=== PATIENT | female | born 1945 | race Two or more races ===

== ENCOUNTER 2016-09-09 07:28 | Inpatient (IN) | payer MEDICARE, MEDICAID ==
[~2016-09-09] VITALS: Ht 157.5 cm; Wt 45.8 kg
[2016-09-09] VITALS (8 sets, daily range): BP systolic 118–137; BP diastolic 33–65
[2016-09-09] MEDS ORDERED: COLACE100 MG ORAL (07:44)
[2016-09-09] MEDS ORDERED: TRAMADOL HCL50 MG ORAL (07:44)
[2016-09-09] MEDS ORDERED: FOSAMAX70 MG ORAL (07:44)
[2016-09-09] MEDS ORDERED: ATORVASTATIN CA40 MG ORAL (07:45)
[2016-09-09] MEDS ORDERED: CALCIUM 500 +1 EAC5 PO (07:45)
[2016-09-09] MEDS ORDERED: FAMOTIDINE20 MG ORAL (07:47)
[2016-09-09] MEDS ORDERED: LOVENOX10 M4 SUBQ ×3 (07:47→08:33)
[2016-09-09] MEDS ORDERED: DIGOXIN125 MCG ORAL (07:47)
[2016-09-09] MEDS ORDERED: CARVEDILOL6.25 MG ORAL (07:47)
[2016-09-09] MEDS ORDERED: FUROSEMIDE40 MG ORAL (07:48)
[2016-09-09] MEDS ORDERED: FERROUS SULFAT325 MG ORAL (07:48)
[2016-09-09] MEDS ORDERED: METFORMIN HCL850 M1 ORAL (07:56)
[2016-09-09] MEDS ORDERED: OFLOXACIN5 ML OTIC (07:56)
[2016-09-09] MEDS ORDERED: ACULAR5 ML BOTH EYES (07:56)
[2016-09-09] MEDS ORDERED: LOSARTAN POTASS25 MG ORAL (07:56)
[2016-09-09] MEDS ORDERED: PRED FORTE1 ML OP (07:56)
[2016-09-09] MEDS ORDERED: METFORMIN HCL1000 M1 ORAL (07:56)
[2016-09-09] MEDS ORDERED: PRED FORTE1 ML RIGHT EYE (07:58)
[2016-09-09] MEDS ORDERED: WARFARIN SODIUM4 MG ORAL (07:58)
--- NOTE | 2016-09-09 08:06 | Emergency Room Report ---
History of Present Illness General Chief Complaint: Generalized Weakness Source: Patient, EMS Present Illness HPI The patient presents with several days of increased weakness and dizziness. This worsened this morning. He denies any chest pain. She's had some cough and shortness of breath recently. Is been no fever. Denies any vomiting, hematochezia or melena. She also denies dysuria. Patient is status post valve replacement X 2 -- they were replaced many years ago. She is on digoxin and Coumadin. She denies this happening to her before. She states she has anemia. Recent perirectal surgery 08/27. She had had persistent rectal bleeding and finally agreed to have this corrected. Post-op, there was still significant bleeding which has decreased.. Seen here 08/28. This is the note: The patient is a 70-year-old female presenting for wound check. The patient had a hemorrhoidectomy yesterday at [facility] for rectal hemorrhoid. The patient' s daughter states that the patient mistakenly remove the dressing and the patient began to bleed from the surgical site. The daughter became alarmed and had the patient brought here. The patient denies any symptoms including pain, fatigue, dizziness, blurred vision, abdominal pain. The patient states that she does not take any blood thinners. The patient denies nausea, vomiting, fever, chills, shortness of breath, chest pain Patient lives at home. 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 Review of Systems All Other Systems: negative except mentioned in HPI Physical Exam Vital Signs Date Time Temp Pulse Resp B/P Pulse Ox O2 Delivery O2 Flow Rate FiO2 09/09/16 07:23 98.1 76 16 121/42 98 Room Air Sp02 EP Interpretation: reviewed, normal General Appearance: no apparent distress, alert, GCS 15, thin, Chronically Ill Head: normocephalic Eyes: bilateral eye PERRL, bilateral eye conjunctivae pale ENT: moist mucus membranes Neck: supple Respiratory: rales - anteriorly, fairly clear with sitting up Cardiovascular #1: other - mechanical valves, edema - trace bilat Cardiovascular #2: 2+ radial (R) Gastrointestinal: normal inspection, normal bowel sounds, non tender, no mass, non-distended Rectal: other - some yanci blood from area where surgery was Musculoskeletal: back normal, gait/station normal, normal range of motion Neurologic: alert, oriented x3 - non focal neuro Psychiatric: depressed affect - but pleasant Skin: normal inspection, warm/dry Procedures Critical Care Time Critical Care Time Total time: 30 min bedside evaluation and treatment excludes procedures (EKG). Reason for critical care: hypotension, GI bleed, critical anemia Possible complications: hypotension, hypertension, AR, shock, arrhythmias, metabolic acidosis, end organ damage, respiratory failure. Interventions: fluid bolus, blood transfusions, repeated evaluations, blood consent Course: Patient presents with weakness post rectal surgery. Eval with blood in rectum. Transiently hypotensive. Alleged anticoagulation due to valve replacements (INR = 1). Emergent set up for transfusions (discussed with blood bank, patient and family). Monitor during transfusion. Improved. Consultations: nursing staff, EMS, family, patient Performed by: Dr. Cotter Tolerated well condition = serious Medical Decision Making Diagnostic Impression: Primary Impression: Profound anemia Qualified Codes: D62 - Acute posthemorrhagic anemia Additional Impressions: Lower GI bleed Valve replacements ER Course The patient presents with weakness post valve replacement many years ago. She has a history of anemia. Differential includes acute coronary syndrome, dehydration, anemia, GI blood loss/bleeding post operatively, digoxin toxicity, sepsis, infection including urine or lungs, failure to thrive amongst others. Accompanied patient on digoxin and Coumadin. She is pale and we need to assess her anemia at this time. Hemoglobin returns critically low. Blood was ordered on the patient. The patient was advised of risks and benefits of receiving blood transfusion here. All questions were answered. Improving with blood transfusion, tolerated well. Admit med Dr. Real. Laboratory Tests Test 09/09/16 07:45 09/09/16 08:00 White Blood Count 10.3 K/UL (4.8-10.8) Red Blood Count 1.62 M/UL (4.20-5.40) L Hemoglobin 3.7 G/DL (12.0-16.0) *L Hematocrit 13.3 % (37.0-47.0) L Mean Corpuscular Volume 82 FL (80-99) Mean Corpuscular Hemoglobin 23.2 PG (27.0-31.0) L Mean Corpuscular Hemoglobin Concent 28.3 G/DL (32.0-36.0) L Red Cell Distribution Width 16.0 % (11.6-14.8) H Platelet Count 459 K/UL (150-450) H Mean Platelet Volume 5.4 FL (6.5-10.1) L Neutrophils (%) (Auto) % (45.0-75.0) Lymphocytes (%) (Auto) % (20.0-45.0) Monocytes (%) (Auto) % (1.0-10.0) Eosinophils (%) (Auto) % (0.0-3.0) Basophils (%) (Auto) % (0.0-2.0) Differential Total Cells Counted 100 Neutrophils % (Manual) 81 % (45-75) H Lymphocytes % (Manual) 11 % (20-45) L Monocytes % (Manual) 8 % (1-10) Eosinophils % (Manual) 0 % (0-3) Basophils % (Manual) 0 % (0-2) Band Neutrophils 0 % (0-8) Platelet Estimate Adequate Platelet Morphology Normal Polychromasia 2+ Hypochromasia 2+ Anisocytosis 1+ Ovalocytes Occasional Prothrombin Time 10.6 SEC (9.30-11.50) Prothrombin Time INR 1.0 (0.9-1.1) PTT 28 SEC (23-33) Sodium Level 134 mEQ/L (135-145) L Potassium Level 4.4 mEQ/L (3.4-4.9) Chloride Level 95 mEQ/L (98-107) L Carbon Dioxide Level 24 mEQ/L (20-30) Anion Gap 15 (5-15) Blood Urea Nitrogen 29 mg/dL (7-23) H Creatinine 1.1 mg/dL (0.5-0.9) H Estimate Glomerular Filtration Rate mL/min (>60) Glucose Level 150 mg/dL (74-106) H Lactic Acid Level 1.60 mmol/L (0.66-2.22) Calcium Level 8.6 mg/dL (8.6-10.2) Total Bilirubin 0.3 mg/dL (0.0-1.2) Aspartate Amino Transferase (AST) 16 U/L (5-40) Alanine Aminotransferase (ALT) 12 U/L (3-33) Alkaline Phosphatase 79 U/L (35-104) Total Creatine Kinase 43 U/L (26-140) Troponin I < 0.30 ng/mL (<=0.30) Pro-B-Type Natriuretic Peptide 556 pg/mL (0-125) H Total Protein 6.6 g/dL (6.6-8.7) Albumin 3.4 g/dL (3.5-5.2) L Globulin 3.2 g/dL Albumin/Globulin Ratio 1.0 (1.0-2.7) Digoxin Level 1.8 ng/mL (0.5-2.0) Urine Color Pale yellow Urine Appearance Clear Urine pH 5 (4.5-8.0) Urine Specific [place] 1.015 (1.005-1.035) Urine Protein Negative (NEGATIVE) Urine Glucose (UA) Negative (NEGATIVE) Urine Ketones Negative (NEGATIVE) Urine Occult Blood Negative (NEGATIVE) Urine Nitrite Negative (NEGATIVE) Urine Bilirubin Negative (NEGATIVE) Urine Urobilinogen Normal MG/DL (0.0-1.0) Urine Leukocyte Esterase 1+ (NEGATIVE) H Urine RBC 0-2 /HPF (0 - 2) Urine WBC 0-2 /HPF (0 - 2) Urine Squamous Epithelial Cells Few /LPF (NONE/OCC) Urine Bacteria Few /HPF (NONE) EKG Diagnostic Results Rhythm: other - A. fib ST Segments: other - digoxin effect or ischemia Rhythm Strip Diag. Results EP Interpretation: yes Rhythm: no PVC's, no ectopy, other - a fib Chest X-Ray Diagnostic Results EP Interpretation: Yes Findings: no consolidation, no effusion, no pneumothorax, other - cardiomegally Number of Views: 1 Last Vital Signs Date Time Temp Pulse Resp B/P Pulse Ox O2 Delivery O2 Flow Rate FiO2 09/09/16 07:23 98.1 76 16 121/42 98 Room Air Status: improved Disposition: ADMITTED INPATIENT Condition: Serious Alirio Cotter M.D. Sep 09, 2016 08:06
[2016-09-09 08:22] LABS: MEAN CORPUSCULAR HEMOGLOBIN 23.2 PG (27.0-31.0); MEAN CORPUSCULAR HGB CONC 28.3 G/DL (32.0-36.0); MEAN CORPUSCULAR VOLUME 82 FL (80-99); MEAN PLATELET VOLUME 5.4 FL (6.5-10.1); PLATELET COUNT 459 K/UL (150-450); RED BLOOD COUNT 1.62 M/UL (4.20-5.40); WHITE BLOOD COUNT 10.3 K/UL (4.8-10.8)
[2016-09-09 08:34] LABS: ALANINE AMINOTRANSFERASE 12 U/L (3-33); ANION GAP 15 (5-15); ASPARTATE AMINO TRANSFERASE 16 U/L (5-40); CALCIUM 8.6 mg/dL (8.6-10.2); CARBON DIOXIDE 24 mEQ/L (20-30); CHLORIDE 95 mEQ/L (98-107); CREATININE 1.1 mg/dL (0.5-0.9); HEMOLYSIS 0; POTASSIUM 4.4 mEQ/L (3.4-4.9); SODIUM 134 mEQ/L (135-145); TOTAL PROTEIN 6.6 g/dL (6.6-8.7)
[2016-09-09 08:35] LABS: PROTHROMBIN TIME 10.6 SEC (9.30-11.50)
[2016-09-09 08:45] LABS: TROPONIN I < 0.30 ng/mL (<=0.30)
[2016-09-09 08:55] LABS: LYMPHOCYTES % (MANUAL) 11 % (20-45); NEUTROPHILS % (MANUAL) 81 % (45-75); TOTAL CELLS COUNTED 100
[2016-09-09 08:56] LABS: ANISOCYTOSIS 1+; HYPOCHROMASIA 2+; POLYCHROMASIA 2+
[2016-09-09 08:57] LABS: OVALOCYTES OCCASIONAL
[2016-09-09 08:58] LABS: BAND NEUTROPHILS % (MANUAL) 0 % (0-8); BASOPHILS % (MANUAL) 0 % (0-2); EOSINOPHILS % (MANUAL) 0 % (0-3); PLATELET ESTIMATE ADEQUATE; PLATELET MORPHOLOGY NORMAL
[2016-09-09 09:32] LABS: APPEARANCE,URINE CLEAR; KETONES,URINE NEGATIVE (NEGATIVE); LEUKOCYTE ESTERASE ,URINE 1+ (NEGATIVE); NITRITE,URINE NEGATIVE (NEGATIVE); PH,URINE 5 (4.5-8.0); PROTEIN,URINE NEGATIVE (NEGATIVE); UROBILINOGEN,URINE NORMAL MG/DL (0.0-1.0)
[2016-09-09 09:48] LABS: BACTERIA,URINE FEW /HPF; RBC,URINE 0-2 /HPF (0 - 2); SQUAMOUS EPITHELIAL CELL,UR FEW /LPF (NONE/OCC); WBC,URINE 0-2 /HPF (0 - 2)
--- NOTE | 2016-09-09 12:11 | Diagnostic Imaging Report ---
Indication: Dyspnea Comparison: None A single view chest radiograph was obtained. Findings: No definite infiltrate or pulmonary vascular congestion identified. The heart is enlarged. The aorta is mildly enlarged consistent with atherosclerotic vascular disease. The older fractures on the right. Sternotomy noted. The bones are osteopenic. Impression: No acute disease
--- NOTE | 2016-09-09 15:26 | History & Physical ---
History and Physical History & Physicial job # [id number] Kobi Real MD Sep 09, 2016 15:26
[2016-09-09] MEDS: NovoLOG Insulin Flexpen SUBQ SCH ×3 (16:30→23:07)
--- NOTE | 2016-09-09 16:32 | Consultation ---
Consult Note Consult Note Surgery Reason for Consult: Blood per rectum, profound anemia Consulting physician: Farhan 70 year old female history of A. Fib on Coumadin underwent hemorrhoidectomy at [facility] at 08/27/16. Reports it was two bundle. Pain for about 4 - 5 days.Had blood spotting post, but in last day or so was very significant bleeding. Has been bridged on Lovenox injections post op. Denies history of DVT/PE. Blood thinners were for A. Fib. Denies history of RI, but does have history of CVA in the 90's. No chest pain prior to this admission. Denies syncopal episode. PMHx: CVA 90's, HTN, Chol, DM, A. Fib on blood thinners PSHx: cataracts x2, hemorrhoidectomy x2 bundles FamHx: non contrib SocHx: non contrib ROS: ten point review - pertinents in HPI above Phys: AVSS pertinent positive/negative unlabored NAD AAOX3 Soft, NTND rectal exam: Gross: right lateral thrombosis without surrounding induration/fluctuance, no crepitus STARLA: Deferred due to recent surgery Labs: Laboratory Tests 09/09/16 07:45: White Blood Count 10.3, Hemoglobin 3.7*L, Band Neutrophils 0, Glucose Level 150H, Lactic Acid Level 1.60, Troponin I < 0.30, Pro-B-Type Natriuretic Peptide 556H Assessment/Plan Rectal Bleeding with profound anemia Agree with blood transfusion Bleeding likely from hemorrhoidectomy due to the blood thinners if can hold off of the blood thinners for some time, please do no significant bleeding at the current moment There is a thrombus on the right lateral bundle - likely this was the site of the bleed and it has since clotted off Leave the thrombus in place Given history of DM, control sugars to decrease infectious risk If hgb stable and no bleeding over 24 hours stable for d/c with follow up with her primary surgeon if can, keep off of anti-coagulation for 1 - 2 weeks to allow the site to heal adequately - however cardiac concerns take precedence and if needs Anti- coagulation then should be done thank you for interesting consultation. AWA LAWS Sep 09, 2016 16:32
[2016-09-09 17:05] LABS: TROPONIN I < 0.30 ng/mL (<=0.30)
[2016-09-09] MEDS: Furosemide 40mg tab ORAL SCH (18:15)
[2016-09-09] MEDS: Pred Forte 1% Opth Susp 1ml RIGHT EYE SCH ×2 (18:16→23:01)
[2016-09-09 19:43] LABS: MEAN CORPUSCULAR HEMOGLOBIN 26.5 PG (27.0-31.0); MEAN CORPUSCULAR HGB CONC 30.6 G/DL (32.0-36.0); MEAN CORPUSCULAR VOLUME 86 FL (80-99); MEAN PLATELET VOLUME 5.2 FL (6.5-10.1); PLATELET COUNT 360 K/UL (150-450); RED BLOOD COUNT 2.31 M/UL (4.20-5.40); RED CELL DISTRIBUTION WIDTH 15.3 % (11.6-14.8); WHITE BLOOD COUNT 7.3 K/UL (4.8-10.8)
[2016-09-09 20:00] LABS: BASOPHILS % (AUTO) 0.6 % (0.0-2.0); EOSINOPHILS % (AUTO) 0.2 % (0.0-3.0); LYMPHOCYTES % (AUTO) 14.8 % (20.0-45.0); MONOCYTES % (AUTO) 7.9 % (1.0-10.0); NEUTROPHILS % (AUTO) 76.5 % (45.0-75.0)
--- NOTE | 2016-09-09 20:18 | History and Physical Report ---
DATE OF ADMISSION: 09/09/2016 CHIEF COMPLAINT: General weakness and rectal bleeding. HISTORY OF PRESENT ILLNESS: This is a 70-year-old, very unfortunate, female with past medical history significant for hypertension, diabetes type 2, status post mechanical valve replacement twice in 1985 and 1995, history of atrial fibrillation and prior history of CVA in 1990. Hemorrhoidectomy on 08/27/2016 recently at [facility], who has presented to the hospital initially on 08/28/2016 due to the rectal bleeding. The patient post surgery had a dressing at the rectum area after the hemorrhoidectomy and the patient removed the dressings and packing and then subsequently had a slow bleeding. She has been getting the Lovenox due to the mechanical valve and hold off on the Coumadin. She has been having a continuous bleeding, initially got improved, but however, got progressively worsening after a couple of days and now presented to the emergency room with severe weakness and tiredness and shortness of breath with some cough. Denies any fever or chills. Denies any bright red blood per rectum and shortly after initial evaluation in the emergency, the patient was noted to have a hemoglobin of 3.7, hematocrit of 13.3, and subsequently, the patient was admitted to the hospital with severe anemia due to the rectal bleeding. PAST MEDICAL HISTORY/PAST SURGICAL HISTORY: As above. History of a recent hemorrhoidectomy on 08/27/2016 due to the enlarged hemorrhoids and there is slow bleeding, history of cataract surgery in both eyes, anemia, atrial fibrillation, diabetes type 2, with prior history of stroke in 1990, hypertension and status post valve replacement in 1985 and 1995 with mechanical valve. MEDICATIONS: Medications at home is significant for Coumadin 4 mg p.o. daily, but presently on hold, Lovenox 40 mg twice a day, Fosamax 70 mg weekly, atorvastatin 40 mg at night, vitamin D plus calcium one tablet twice a day, carvedilol 6.25 mg b.i.d., digoxin 0.125 mg daily, Colace 200 mg b.i.d., famotidine 20 mg daily, iron sulfate 325 mg daily, Lasix 40 mg twice a day, Acular one drop b.i.d., losartan 25 mg daily, metformin 850 mg p.o. t.i.d., and prednisone acetate 1 mL drop suspension, Folaxin 5 mL four times a day, and Ultram 50 mg q.6 h. p.r.n. ALLERGIES: No known drug allergies. SOCIAL HISTORY: Denies any smoking, alcohol, or drugs. She lives with her niece, who is a primary janitor caretaker for the patient. FAMILY HISTORY: Diabetes runs in the family. REVIEW OF SYSTEMS: Mostly as above. Complained about the rectal bleeding. Denies any hemoptysis or hematochezia. Denies any bright red blood per rectum. Denies any loss of consciousness. Denies any suicidal cessation. Complained about shortness of breath and weakness. Denies any seizure activity. Denies any double vision. PHYSICAL EXAMINATION: VITAL SIGNS: On admission from the ER is significant for temperature 98.1 degrees, pulse of 76, respirations 16, and blood pressure 121/43. GENERAL: The patient is awake, responsive, no acute distress. HEENT: Pupils are equal and reactive to light. Pallor conjunctiva. NECK: Supple. No JVD. LUNGS: Good air entry. No wheezing or rales. HEART: S1 and S2 irregular. Systolic ejection murmur was noted. Mechanical click was noted on the left sternal border. ABDOMEN: Soft, nontender, and nondistended. Positive bowel sounds. EXTREMITIES: No cyanosis, clubbing, or edema. NEUROLOGIC: Cranial nerves II through XII are grossly intact. Moves all four extremities. LABORATORY DATA: On admission from the ER, WBC of 10.3, hemoglobin of 3.7, hematocrit 13, and platelet is 459,000. Sodium 134, potassium 4.4, chloride 95, bicarbonate 24, BUN 29, and creatinine 1.02. Her glucose is 150. Lactic acid is 1.6. First troponin is less than 0.30. ProBNP of 556 and digoxin level of 1.8. Urinalysis, +1 leukocyte otherwise no nitrates. PT of 10, INR 1.0, and PTT of 28. WBC of 10.3, hemoglobin 3.7, hematocrit 13, and platelet is 459,000, 11% lymphocytes, and 81% neutrophils. EKG shows that the patient has atrial fibrillation with a ventricular rate of 82, left ventricular hypertrophy. No ST elevation was noted. No T-wave inversions. However, mild ST depression was noted in lead 2 as well as the V5 and V6. ASSESSMENT: 1. Severe anemia. 2. Rectal bleeding. 3. Diabetes type 2. 4. Hypertension. 5. History of cerebrovascular accident. 6. Atrial fibrillation. 7. Mild abnormal electrocardiogram. 8. History of enlarged hemorrhoids status post a recent hemorrhoidectomy. PLAN: Admit the patient to telemetry. Start the patient on IV hydration with blood transfusion 2 units of packed RBC. Follow up with a repeat laboratory post transfusion. Resume home medication. Clear liquid diet. We will follow up with the colorectal consultation with Dr. Gael Brooks, gastrointestinal consultation with Dr. Charan Pimentel, and cardiology consultation with Dr. Travis Hartley. We will hold off on anticoagulation due to severe anemia. Discussed with any needs at the bedside extensively regards this care will be provided. We will monitor the labs and Code status is Full Code. Kobi Real M.D. DR: MADISON JOB#: [id number] CC:
[2016-09-10] VITALS (8 sets, daily range): BP systolic 98–126; BP diastolic 46–60
[2016-09-10] MEDS: NovoLOG Insulin Flexpen SUBQ SCH ×4 (06:57→22:43)
--- NOTE | 2016-09-10 08:10 | General Progress Note ---
Progress Note Progress Note Surgery no complaints. Denies further bleeding. denies f/c/dysuria/pelvic pain avss nad gauze placed by nursing yesterday morning without blood on it thrombus softer and smaller overall blood per rectum bleeding has stopped cont transfusions to appropriate levels if safe to do, hold anti-coagulation 1 - 2 weeks and then restart as normal stable for discharge once hemoglobin at appropriate level follow up within one week of discharge with her original surgeon AWA LAWS Sep 10, 2016 08:10
[2016-09-10] MEDS: Digoxin 0.125mg tab ORAL SCH (09:46)
[2016-09-10] MEDS: Pred Forte 1% Opth Susp 1ml RIGHT EYE SCH ×4 (09:47→22:40)
[2016-09-10] MEDS: Furosemide 40mg tab ORAL SCH ×2 (09:47→18:04)
[2016-09-10 11:14] LABS: BASOPHILS % (AUTO) 0.9 % (0.0-2.0); EOSINOPHILS % (AUTO) 0.7 % (0.0-3.0); LYMPHOCYTES % (AUTO) 13.8 % (20.0-45.0); MEAN CORPUSCULAR HEMOGLOBIN 27.8 PG (27.0-31.0); MEAN CORPUSCULAR HGB CONC 32.7 G/DL (32.0-36.0); MEAN CORPUSCULAR VOLUME 85 FL (80-99); MEAN PLATELET VOLUME 5.3 FL (6.5-10.1); MONOCYTES % (AUTO) 9.1 % (1.0-10.0); NEUTROPHILS % (AUTO) 75.5 % (45.0-75.0); PLATELET COUNT 311 K/UL (150-450); RED BLOOD COUNT 3.28 M/UL (4.20-5.40); RED CELL DISTRIBUTION WIDTH 14.8 % (11.6-14.8); WHITE BLOOD COUNT 6.2 K/UL (4.8-10.8)
[2016-09-10 11:25] LABS: TROPONIN I < 0.30 ng/mL (<=0.30)
[2016-09-10 11:28] LABS: ALANINE AMINOTRANSFERASE 9 U/L (3-33); ANION GAP 14 (5-15); ASPARTATE AMINO TRANSFERASE 13 U/L (5-40); CALCIUM 8.4 mg/dL (8.6-10.2); CARBON DIOXIDE 27 mEQ/L (20-30); CHLORIDE 99 mEQ/L (98-107); HEMOLYSIS 2; PHOSPHORUS 3.1 mg/dL (2.5-4.8); SODIUM 140 mEQ/L (135-145); TOTAL PROTEIN 6.2 g/dL (6.6-8.7)
[2016-09-10] MEDS: Docusate 100mg cap ORAL SCH ×2 (13:00→18:04)
--- NOTE | 2016-09-10 13:26 | GI Initial Consult Note ---
Meagan Jensen N.P. 09/10/16 1326: History of Present Illness General Date patient seen: Sep 10, 2016 Time patient seen: 11:00 Reason for Hospitalization: Generalized Weakness Referring physician: PRICE HOFF Reason for Consultation: RECTAL BLEED Present Illness HPI The patient presents with several days of increased weakness and dizziness. This worsened this morning. He denies any chest pain. She's had some cough and shortness of breath recently. Is been no fever. Denies any vomiting, hematochezia or melena. She also denies dysuria. Patient is status post valve replacement X 2 -- they were replaced many years ago. She is on digoxin and Coumadin. She denies this happening to her before. She states she has anemia. Recent perirectal surgery 08/27. She had had persistent rectal bleeding and finally agreed to have this corrected. Post-op, there was still significant bleeding which has decreased.. Seen here 08/28. This is the note: The patient is a 70-year-old female presenting for wound check. The patient had a hemorrhoidectomy yesterday at [facility] for rectal hemorrhoid. The patient' s daughter states that the patient mistakenly remove the dressing and the patient began to bleed from the surgical site. The daughter became alarmed and had the patient brought here. The patient denies any symptoms including pain, fatigue, dizziness, blurred vision, abdominal pain. The patient states that she does not take any blood thinners. The patient denies nausea, vomiting, fever, chills, shortness of breath, chest pain Patient lives at home. GI NOTE: HPI as noted above. GI consulted for rectal bleed. Pt seen on floor A&Ox4 NAD. Pt was admitted here at [place] with anemia due to acute blood loss 2/2 s/p hemorrhoidectomy. Initial Hgb 3.7, now Hgb 9.1 s/p transfusion. Per RN report, the patient has had no active rectal bleeding since admission. However, NC MACHINIST reports scant amounts of bright red blood. Pt denies any melena. Last colonoscopy was approximately 3 years ago. Home Meds Reported Medications Enoxaparin* (LOVENOX*) 40 Mg/0.4 Ml Inj, 40 MG SUBQ BID 09/09/16 Warfarin Sod* (WARFARIN SOD*) 4 Mg Tablet, 4 MG ORAL DAILY, TAB 0 Refills 09/09/16 Prednisolone Acetate (PRED FORTE) 1 Ml Drops.susp, 1 DROP RIGHT EYE QID 09/09/16 Losartan Potassium* (LOSARTAN POTASSIUM*) 25 Mg Tablet, 25 MG ORAL DAILY, TAB 09/09/16 Ofloxacin (OFLOXACIN) 5 Ml Drops, 5 ML OTIC QID, ML 09/09/16 Metformin Hcl* (METFORMIN HCL*) 1,000 Mg Tablet, 1000 MG ORAL BID, TAB 09/09/16 Metformin Hcl* (METFORMIN HCL*) 850 Mg Tablet, 850 MG ORAL TID, TAB 09/09/16 Ketorolac Tromethamine (ACULAR) 5 Ml Drops, 1 DROP BOTH EYES FOUR TIMES A DAY, ML 09/09/16 Furosemide* (LASIX*) 40 Mg Tablet, 40 MG ORAL TWICE A DAY, TAB 0 Refills 09/09/16 Ferrous Sulfate* (FERROUS SULFATE*) 325 Mg Tablet, 325 MG ORAL DAILY, #30 TAB 0 Refills 09/09/16 Famotidine (FAMOTIDINE) 20 Mg Tablet, 20 MG ORAL DAILY, #30 TAB 0 Refills 09/09/16 Digoxin* (DIGOXIN*) 125 Mcg Tablet, 125 MCG ORAL DAILY, TAB 09/09/16 Carvedilol* (CARVEDILOL*) 6.25 Mg Tablet, 6.25 MG ORAL EVERY 12 HOURS, TAB 09/09/16 Calcium Carbonate/Vitamin D3 (CALCIUM 500 + VIT D 200 TABLET) 1 Each Tablet, 1 EACH PO BID, TAB 09/09/16 Atorvastatin Calcium* (ATORVASTATIN CALCIUM*) 40 Mg Tablet, 40 MG ORAL BEDTIME, TAB 09/09/16 Alendronate Sodium* (FOSAMAX*) 70 Mg Tablet, 70 MG ORAL ONCE A WEEK, TAB 09/09/16 Docusate Sodium* (COLACE*) 100 Mg Capsule, 200 MG ORAL TWICE A DAY, CAP 09/09/16 Tramadol Hcl* (ULTRAM*) 50 Mg Tablet, 50 MG ORAL Q6H Y for For Pain, #30 TAB 0 Refills 09/09/16 Discontinued Reported Medications Enoxaparin* (LOVENOX*) 40 Mg/0.4 Ml Inj, 40 MG SUBQ BID 09/09/16 Prednisolone Acetate (PRED FORTE) 1 Ml Drops.susp, 1 ML OP 09/09/16 Med list reviewed/reconciled: Yes Allergies: Coded Allergies: No Known Allergies (Unverified , 08/28/16) Patient History Limited by: medical condition History Provided By: Patient, Medical Record PMH Narrative Past Medical History: see triage record Past Surgical History: other - valve replacements Social History: Denies: smoking Social History Narrative at home Reviewed Nursing Documentation: PMH: Agreed, PSxH: Agreed Nursing Documentation-PMH Past Medical History: No History, Except For Hx Cardiac Problems: Yes - Anorectal surgery Hx Hypertension: Yes Hx Diabetes: Yes Hx Gastrointestinal Problems: No - Hemorrhoid 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 Social History: Denies: alcohol use, drug use, other, smoking Review of Systems All Other Systems: negative except mentioned in HPI Physical Exam Vital Signs Date Time Temp Pulse Resp B/P Pulse Ox O2 Delivery O2 Flow Rate FiO2 09/09/16 07:23 98.1 76 16 121/42 98 Room Air 09/09/16 08:30 2.0 Sp02 EP Interpretation: reviewed Labs Laboratory Tests Test 09/09/16 16:05 09/09/16 19:10 09/10/16 10:15 Troponin I < 0.30 ng/mL (<=0.30) < 0.30 ng/mL (<=0.30) White Blood Count 7.3 K/UL (4.8-10.8) 6.2 K/UL (4.8-10.8) Red Blood Count 2.31 M/UL (4.20-5.40) L 3.28 M/UL (4.20-5.40) L Hemoglobin 6.1 G/DL (12.0-16.0) 9.1 G/DL (12.0-16.0) #L Hematocrit 19.9 % (37.0-47.0) #L 27.9 % (37.0-47.0) #L Mean Corpuscular Volume 86 FL (80-99) 85 FL (80-99) Mean Corpuscular Hemoglobin 26.5 PG (27.0-31.0) L 27.8 PG (27.0-31.0) Mean Corpuscular Hemoglobin Concent 30.6 G/DL (32.0-36.0) L 32.7 G/DL (32.0-36.0) Red Cell Distribution Width 15.3 % (11.6-14.8) H 14.8 % (11.6-14.8) Platelet Count 360 K/UL (150-450) 311 K/UL (150-450) Mean Platelet Volume 5.2 FL (6.5-10.1) L 5.3 FL (6.5-10.1) L Neutrophils (%) (Auto) 76.5 % (45.0-75.0) H 75.5 % (45.0-75.0) H Lymphocytes (%) (Auto) 14.8 % (20.0-45.0) L 13.8 % (20.0-45.0) L Monocytes (%) (Auto) 7.9 % (1.0-10.0) 9.1 % (1.0-10.0) Eosinophils (%) (Auto) 0.2 % (0.0-3.0) 0.7 % (0.0-3.0) Basophils (%) (Auto) 0.6 % (0.0-2.0) 0.9 % (0.0-2.0) Sodium Level 140 mEQ/L (135-145) Potassium Level 4.0 mEQ/L (3.4-4.9) Chloride Level 99 mEQ/L (98-107) Carbon Dioxide Level 27 mEQ/L (20-30) Anion Gap 14 (5-15) Blood Urea Nitrogen 21 mg/dL (7-23) Creatinine 1.0 mg/dL (0.5-0.9) H Estimat Glomerular Filtration Rate mL/min (>60) Glucose Level 138 mg/dL (74-106) H Calcium Level 8.4 mg/dL (8.6-10.2) L Phosphorus Level 3.1 mg/dL (2.5-4.8) Magnesium Level 2.0 mg/dL (1.7-2.5) Total Bilirubin 0.4 mg/dL (0.0-1.2) Aspartate Amino Transf (AST/SGOT) 13 U/L (5-40) Alanine Aminotransferase (ALT/SGPT) 9 U/L (3-33) Alkaline Phosphatase 71 U/L (35-104) Total Protein 6.2 g/dL (6.6-8.7) L Albumin 3.2 g/dL (3.5-5.2) L Globulin 3.0 g/dL Albumin/Globulin Ratio 1.0 (1.0-2.7) General Appearance: no apparent distress, alert, thin Head: normocephalic EENT: normal ENT inspection Neck: supple Respiratory: normal breath sounds, no respiratory distress Cardiovascular: normal rate Gastrointestinal: non tender, soft Rectal: other - rectal bleed bright red blood Genitourinary: no CVA tenderness Musculoskeletal: normal range of motion Neurologic: normal inspection, alert, oriented x3, responsive Psychiatric: normal inspection, judgement/insight normal Skin: normal inspection, normal color, no rash, warm/dry Lymphatic: normal inspection, no adenopathy Current Medications Current Medications Medications (Trade) Dose Ordered Sig/Grisel Route PRN Reason Start Time Stop Time Status Last Admin Dose Admin Atorvastatin Calcium (Lipitor) 40 mg BEDTIME ORAL 09/09/16 21:00 10/09/16 20:59 09/09/16 22:54 Carvedilol (Coreg) 3.125 mg EVERY 12 HOURS ORAL 09/09/16 21:00 10/09/16 20:59 09/10/16 09:46 Dextrose (Dextrose 50%) STAT PRN IV Hypoglycemia 09/09/16 15:45 10/09/16 15:44 Digoxin (Lanoxin) 0.125 mg DAILY ORAL 09/10/16 09:00 10/10/16 08:59 09/10/16 09:46 Docusate Sodium (Colace) 100 mg THREE TIMES A DAY ORAL 09/10/16 13:00 10/10/16 12:59 09/10/16 13:00 Ferrous Sulfate (Feosol) 325 mg DAILY ORAL 09/10/16 09:00 10/10/16 08:59 09/10/16 09:46 Furosemide (Lasix) 40 mg TWICE A DAY ORAL 09/09/16 18:00 10/09/16 17:59 09/10/16 09:47 Insulin Aspart (NovoLOG) BEFORE MEALS AND HS SUBQ 09/09/16 16:30 10/09/16 16:29 09/10/16 11:45 Metformin HCl (Glucophage) 850 mg TID ORAL 09/09/16 18:00 10/09/16 17:59 09/10/16 13:01 Polyethylene Glycol (Miralax) 17 gm BEDTIME ORAL 09/10/16 21:00 10/10/16 20:59 Prednisolone Acetate (Pred Forte) 1 drop QID RIGHT EYE 09/09/16 18:00 10/09/16 17:59 09/10/16 13:01 GI: Plan Problems: (1) S/P hemorrhoidectomy (2) Hypoalbuminemia (3) Iron deficiency (4) Lower GI bleed (5) Encounter for postoperative wound check (6) Profound anemia Plan hold off colonoscopy at this time >> bleed from s/p hemorrhoidectomy ordered colace/miralax monitor H&H, transfuse prn iron deficient >> venofer adv to cardiac diet okay to restart any cardiac meds per primary fu labs Discussed with Dr. Burch. Thank you for referring this patient, we will follow. YVES BURCH 09/11/16 1402: History of Present Illness General Reason for Hospitalization: Generalized Weakness Present Illness Home Meds Reported Medications Enoxaparin* (LOVENOX*) 40 Mg/0.4 Ml Inj, 40 MG SUBQ BID 09/09/16 Warfarin Sod* (WARFARIN SOD*) 4 Mg Tablet, 4 MG ORAL DAILY, TAB 0 Refills 09/09/16 Prednisolone Acetate (PRED FORTE) 1 Ml Drops.susp, 1 DROP RIGHT EYE QID 09/09/16 Losartan Potassium* (LOSARTAN POTASSIUM*) 25 Mg Tablet, 25 MG ORAL DAILY, TAB 09/09/16 Ofloxacin (OFLOXACIN) 5 Ml Drops, 5 ML OTIC QID, ML 09/09/16 Metformin Hcl* (METFORMIN HCL*) 1,000 Mg Tablet, 1000 MG ORAL BID, TAB 09/09/16 Metformin Hcl* (METFORMIN HCL*) 850 Mg Tablet, 850 MG ORAL TID, TAB 09/09/16 Ketorolac Tromethamine (ACULAR) 5 Ml Drops, 1 DROP BOTH EYES FOUR TIMES A DAY, ML 09/09/16 Furosemide* (LASIX*) 40 Mg Tablet, 40 MG ORAL TWICE A DAY, TAB 0 Refills 09/09/16 Ferrous Sulfate* (FERROUS SULFATE*) 325 Mg Tablet, 325 MG ORAL DAILY, #30 TAB 0 Refills 09/09/16 Famotidine (FAMOTIDINE) 20 Mg Tablet, 20 MG ORAL DAILY, #30 TAB 0 Refills 09/09/16 Digoxin* (DIGOXIN*) 125 Mcg Tablet, 125 MCG ORAL DAILY, TAB 09/09/16 Carvedilol* (CARVEDILOL*) 6.25 Mg Tablet, 6.25 MG ORAL EVERY 12 HOURS, TAB 09/09/16 Calcium Carbonate/Vitamin D3 (CALCIUM 500 + VIT D 200 TABLET) 1 Each Tablet, 1 EACH PO BID, TAB 09/09/16 Atorvastatin Calcium* (ATORVASTATIN CALCIUM*) 40 Mg Tablet, 40 MG ORAL BEDTIME, TAB 09/09/16 Alendronate Sodium* (FOSAMAX*) 70 Mg Tablet, 70 MG ORAL ONCE A WEEK, TAB 09/09/16 Docusate Sodium* (COLACE*) 100 Mg Capsule, 200 MG ORAL TWICE A DAY, CAP 09/09/16 Tramadol Hcl* (ULTRAM*) 50 Mg Tablet, 50 MG ORAL Q6H Y for For Pain, #30 TAB 0 Refills 09/09/16 Discontinued Reported Medications Enoxaparin* (LOVENOX*) 40 Mg/0.4 Ml Inj, 40 MG SUBQ BID 09/09/16 Prednisolone Acetate (PRED FORTE) 1 Ml Drops.susp, 1 ML OP 09/09/16 Allergies: Coded Allergies: No Known Allergies (Unverified , 08/28/16) GI: Plan Plan The patient was seen and examined at bedside and all new and available data was reviewed in the patients chart. I agree with the above findings, impression and plan. (Patient seen earlier today. Signature stamp does not reflect patient encounter time.). -Meagan Millan MD N.Gudelia Sep 10, 2016 13:26 YVES BURCH Sep 11, 2016 14:02
--- NOTE | 2016-09-10 14:04 | Internal Med Progress Note ---
Subjective Date of Service: Sep 10, 2016 Physician Name Nikki Taylor Attending Physician Kobi Real MD Current Medications Medications (Trade) Dose Ordered Sig/Grisel Route PRN Reason Start Time Stop Time Status Last Admin Dose Admin Atorvastatin Calcium (Lipitor) 40 mg BEDTIME ORAL 09/09/16 21:00 10/09/16 20:59 09/09/16 22:54 Carvedilol (Coreg) 3.125 mg EVERY 12 HOURS ORAL 09/09/16 21:00 10/09/16 20:59 09/10/16 09:46 Dextrose (Dextrose 50%) STAT PRN IV Hypoglycemia 09/09/16 15:45 10/09/16 15:44 Digoxin (Lanoxin) 0.125 mg DAILY ORAL 09/10/16 09:00 10/10/16 08:59 09/10/16 09:46 Docusate Sodium (Colace) 100 mg THREE TIMES A DAY ORAL 09/10/16 13:00 10/10/16 12:59 09/10/16 13:00 Ferrous Sulfate (Feosol) 325 mg DAILY ORAL 09/10/16 09:00 10/10/16 08:59 09/10/16 09:46 Furosemide (Lasix) 40 mg TWICE A DAY ORAL 09/09/16 18:00 10/09/16 17:59 09/10/16 09:47 Insulin Aspart (NovoLOG) BEFORE MEALS AND HS SUBQ 09/09/16 16:30 10/09/16 16:29 09/10/16 11:45 Metformin HCl (Glucophage) 850 mg TID ORAL 09/09/16 18:00 10/09/16 17:59 09/10/16 13:01 Polyethylene Glycol (Miralax) 17 gm BEDTIME ORAL 09/10/16 21:00 10/10/16 20:59 Prednisolone Acetate (Pred Forte) 1 drop QID RIGHT EYE 09/09/16 18:00 10/09/16 17:59 09/10/16 13:01 Allergies: Coded Allergies: No Known Allergies (Unverified , 08/28/16) ROS Limited/Unobtainable: No Constitutional: Reports: no symptoms HEENT: Reports: no symptoms Cardiovascular: Reports: no symptoms Respiratory: Reports: no symptoms Gastrointestinal/Abdominal: Reports: rectal bleeding Genitourinary: Reports: no symptoms Neurologic/Psychiatric: Reports: no symptoms Subjective Cover for Int Sunny-Dr Real. S/P transfusion 4 units PRBC Objective Last Vital Signs Date Time Temp Pulse Resp B/P Pulse Ox O2 Delivery O2 Flow Rate FiO2 09/10/16 12:00 47 09/10/16 11:48 96.8 20 115/59 98 Nasal Cannula 98.0 General Appearance: WD/WN, no apparent distress, alert, thin EENT: PERRL/EOMI, normal ENT inspection, TMs normal Neck: non-tender, normal alignment, supple, normal inspection Cardiovascular: normal peripheral pulses, normal rate, regular rhythm, no gallop/murmur, no JVD Respiratory/Chest: chest wall non-tender, lungs clear, normal breath sounds, no respiratory distress, no accessory muscle use Abdomen: non tender, soft, no organomegaly, no mass, decreased bowel sounds Extremities: normal range of motion Neurologic: legal research analyst II-XII 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, no motor/sensory deficits Skin: normal pigmentation, warm/dry Laboratory Tests Test 09/09/16 16:05 09/09/16 19:10 09/10/16 10:15 Troponin I < 0.30 ng/mL (<=0.30) < 0.30 ng/mL (<=0.30) White Blood Count 7.3 K/UL (4.8-10.8) 6.2 K/UL (4.8-10.8) Red Blood Count 2.31 M/UL (4.20-5.40) L 3.28 M/UL (4.20-5.40) L Hemoglobin 6.1 G/DL (12.0-16.0) 9.1 G/DL (12.0-16.0) #L Hematocrit 19.9 % (37.0-47.0) #L 27.9 % (37.0-47.0) #L Mean Corpuscular Volume 86 FL (80-99) 85 FL (80-99) Mean Corpuscular Hemoglobin 26.5 PG (27.0-31.0) L 27.8 PG (27.0-31.0) Mean Corpuscular Hemoglobin Concent 30.6 G/DL (32.0-36.0) L 32.7 G/DL (32.0-36.0) Red Cell Distribution Width 15.3 % (11.6-14.8) H 14.8 % (11.6-14.8) Platelet Count 360 K/UL (150-450) 311 K/UL (150-450) Mean Platelet Volume 5.2 FL (6.5-10.1) L 5.3 FL (6.5-10.1) L Neutrophils (%) (Auto) 76.5 % (45.0-75.0) H 75.5 % (45.0-75.0) H Lymphocytes (%) (Auto) 14.8 % (20.0-45.0) L 13.8 % (20.0-45.0) L Monocytes (%) (Auto) 7.9 % (1.0-10.0) 9.1 % (1.0-10.0) Eosinophils (%) (Auto) 0.2 % (0.0-3.0) 0.7 % (0.0-3.0) Basophils (%) (Auto) 0.6 % (0.0-2.0) 0.9 % (0.0-2.0) Sodium Level 140 mEQ/L (135-145) Potassium Level 4.0 mEQ/L (3.4-4.9) Chloride Level 99 mEQ/L (98-107) Carbon Dioxide Level 27 mEQ/L (20-30) Anion Gap 14 (5-15) Blood Urea Nitrogen 21 mg/dL (7-23) Creatinine 1.0 mg/dL (0.5-0.9) H Estimat Glomerular Filtration Rate mL/min (>60) Glucose Level 138 mg/dL (74-106) H Calcium Level 8.4 mg/dL (8.6-10.2) L Phosphorus Level 3.1 mg/dL (2.5-4.8) Magnesium Level 2.0 mg/dL (1.7-2.5) Total Bilirubin 0.4 mg/dL (0.0-1.2) Aspartate Amino Transf (AST/SGOT) 13 U/L (5-40) Alanine Aminotransferase (ALT/SGPT) 9 U/L (3-33) Alkaline Phosphatase 71 U/L (35-104) Total Protein 6.2 g/dL (6.6-8.7) L Albumin 3.2 g/dL (3.5-5.2) L Globulin 3.0 g/dL Albumin/Globulin Ratio 1.0 (1.0-2.7) Intake and Output 09/09/16 09/10/16 19:00 07:00 Intake Total 0 ml 700 ml Output Total 400 ml 750 ml Balance -400 ml -50 ml Intake Oral 0 ml 250 ml Blood Product 450 ml Output Urine Total 400 ml 750 ml Assessment/Plan Problem List: (1) Diabetes mellitus Assessment & Plan: Cont glucophage and novolog sliding scale. (2) HTN (hypertension) (3) Atrial fibrillation Assessment & Plan: Cont digoxin (4) Lower GI bleed Assessment & Plan: See GI note. ?due to recent hemorrhoidectomy. Hold colonoscopy per GI. Hold coumadin and lovenox (5) Iron deficiency (6) Profound anemia Assessment & Plan: Due to rectal bleed secondary to hemorrhoidectomy. S/P transfusion 4 units PRBC. Anemia workup in progress Status: not improved NIKKI TAYLOR Sep 10, 2016 14:04
--- NOTE | 2016-09-10 15:26 | Cardiology Report ---
APPROVED REPORT EXAM: Two-dimensional and M-mode echocardiogram with Doppler and color Doppler. INDICATION Atrial Fibrillation M-Mode DIMENSIONS IVSd1.1 (0.7-1.1cm)Left Atrium (MM)8.9 (1.6-4.0cm) LVDd4.9 (3.5-5.6cm)Aortic Root2.8 (2.0-3.7cm) PWd0.9 (0.7-1.1cm)Aortic Cusp Exc.1.7 (1.5-2.0cm) IVSs1.3 cm LVDs4.0 (2.5-4.0cm) PWs1.3 cm Technically difficult study due to poor acoustic windows. Normal left ventricular chamber size, systolic function WITH SEPTAL DYSKINESIS. Left ventricular ejection fraction estimated to be 55-60 %. No evidence of left ventricular hypertrophy. SMALL posterior pericardial effusion. SEVERE bi-atrial and moderate right ventricular enlargement by 2D. BIOPROSTHETIC Aortic valve replacement with MODERATE PROSTETHIC VALVULAR stenosis. MECHANICAL Mitral valve prosthesis is seen and appears to move appropriately. Mitral annulus and aortic root calcification. Pulmonic valve is well visualized. Normal tricuspid valve structure. IVC is normal in size with no physiologic collapse. Ra pressure of 10mmHg. A color flow and spectral Doppler study was performed and revealed: Peak aortic valve gradient of 53 mm Hg and a mean of 25 mmHg. Mitral P1/2 time of 210 m/s is compatible with a mitral valve area of 2.5cm2 Peak mitral valve diastolic gradient of 16 mmHg and a mean gradient of 4mmHg Severe tricuspid regurgitation. Tricuspid systolic velocities suggests peak right ventricular systolic pressure of 41mmHg Consistent with mild pulmonary hypertension. Pulmonic regurgitation present.
[2016-09-10] MEDS: Enoxaparin 60mg Inj SUBQ SCH (18:06)
--- NOTE | 2016-09-10 21:18 | Consultation ---
DATE OF CONSULTATION: REFERRING PHYSICIAN: Kobi Real M.D. REASON FOR CONSULTATION: Management of anticoagulation. HISTORY OF PRESENT ILLNESS: The patient is a 70-year-old woman with two prior open heart surgeries for valve replacement only who has chronic atrial fibrillation. She is not sure how many valves she has replaced and has a history of stroke in the past. She has recently suffered from hemorrhoidal bleeding and had surgery related to that. She was scheduled for a left heart catheterization today at [facility] for apparently evaluation of her coronary status and valvular status prior to potential surgery. She has been taken off of Coumadin and put on Lovenox for this. She presents with rectal bleeding and significant weakness and is found to be profoundly anemic. The patient currently denies any chest pain or shortness of breath. She denies any orthopnea, PND, or lower extremity edema. She was evaluated by Surgery and was found to not need immediate surgical intervention. Per Surgery, it was hoped that she could be off of anticoagulation for some time. ALLERGIES: None. MEDICATIONS: I have reviewed the medication reconciliation form and medication administration record. PAST MEDICAL HISTORY: As mentioned above. She is not clear what she has had. However, I have reviewed the chest x-ray and there is clearly evidence of a mechanical valvular prosthesis. I have reviewed the echocardiogram and there appears to be a bioprosthetic aortic valve. She has hypertension and diabetes. She has had a stroke in 1990. Her initial valve replacement was in 1985, repeat valve replacement was in 1995, and her hemorrhoidectomy surgery was just this past August. SOCIAL HISTORY: She lives with her niece. She does not smoke or drink alcohol. FAMILY HISTORY: Noncontributory. REVIEW OF SYSTEMS: Comprehensive 12-point review of systems was otherwise negative. PHYSICAL EXAMINATION: VITAL SIGNS: Stable. GENERAL: She is in no apparent distress. HEENT: Normocephalic and atraumatic. NECK: Supple. LUNGS: Clear to auscultation. CARDIAC: Regular rate and rhythm with a mechanical valve click and a systolic ejection murmur. ABDOMEN: Soft and nontender. EXTREMITIES: There is no cyanosis, clubbing, or edema. IMPRESSION AND RECOMMENDATION: 1. Mechanical mitral valve prosthesis. 2. 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 3. Chronic atrial fibrillation. 4. Prior stroke. 5. Rectal bleeding from hemorrhoids. 6. Diabetes. 7. Hypertension. DISCUSSION: Obviously from a cardiology standpoint, she requires the anticoagulation with the mitral valve mechanical prosthesis and prior history of stroke. For any surgical procedure, she can have the anticoagulation held ideally not for more than 24 hours. However, it could extend to 48 hours. She clearly requires further workup and she can have an angiogram done here. Therefore, I recommend that she be transferred to [facility] for further care and management. I have discussed this with Dr. Kobi Real and at this time as she seems to be stable, she can be placed back on anticoagulation as she has no need for immediate surgery. Thank you, Dr. Kobi Real for allowing me to participate in care of patient. Please feel free to contact me with any questions or concerns. Travis Hartley M.D. DR: Kwabena JOB#: [id number] CC:
[2016-09-10] MEDS: Miralax 17gm pkt ORAL SCH (22:40)
[2016-09-11 00:25] VITALS: BP 127/45
[2016-09-11 04:00] VITALS: BP 106/48
[2016-09-11] MEDS: Enoxaparin 60mg Inj SUBQ SCH ×2 (05:46→17:47)
[2016-09-11] MEDS: NovoLOG Insulin Flexpen SUBQ SCH ×4 (05:47→20:51)
[2016-09-11 07:17] LABS: BASOPHILS % (AUTO) 0.6 % (0.0-2.0); EOSINOPHILS % (AUTO) 1.2 % (0.0-3.0); INR 1.1 (0.9-1.1); LYMPHOCYTES % (AUTO) 17.8 % (20.0-45.0); MEAN CORPUSCULAR HEMOGLOBIN 28.1 PG (27.0-31.0); MEAN CORPUSCULAR VOLUME 88 FL (80-99); MEAN PLATELET VOLUME 6.1 FL (6.5-10.1); MONOCYTES % (AUTO) 7.5 % (1.0-10.0); NEUTROPHILS % (AUTO) 72.9 % (45.0-75.0); PLATELET COUNT 283 K/UL (150-450); PROTHROMBIN TIME 10.9 SEC (9.30-11.50); RED BLOOD COUNT 3.03 M/UL (4.20-5.40); WHITE BLOOD COUNT 6.1 K/UL (4.8-10.8)
[2016-09-11 07:35] LABS: ANION GAP 9 (5-15); CALCIUM 8.3 mg/dL (8.6-10.2); CARBON DIOXIDE 29 mEQ/L (20-30); CHLORIDE 106 mEQ/L (98-107); POTASSIUM 4.2 mEQ/L (3.4-4.9); SODIUM 144 mEQ/L (135-145)
[2016-09-11 07:50] LABS: FERRITIN 13 ng/mL (13-150)
[2016-09-11 08:04] LABS: HEMOLYSIS 4; IRON 13 ug/dL (37-145); TOTAL IRON BINDING CAPACITY 343 ug/dL (250-400)
[2016-09-11 08:12] VITALS: BP 124/43
[2016-09-11] MEDS: Digoxin 0.125mg tab ORAL SCH (08:33)
[2016-09-11] MEDS: Docusate 100mg cap ORAL SCH ×3 (08:34→17:45)
[2016-09-11] MEDS: Pred Forte 1% Opth Susp 1ml RIGHT EYE SCH ×4 (08:34→20:20)
[2016-09-11] MEDS: Furosemide 40mg tab ORAL SCH ×2 (08:34→17:46)
[2016-09-11 10:55] LABS: RETICULOCYTE COUNT 1.9 % (0.0-2.0)
--- NOTE | 2016-09-11 11:13 | GI Progress Note ---
Assessment/Plan Problems: (1) Profound anemia ICD Codes: D64.9 - Anemia, unspecified SNOMED: 066758656 (2) Hypoalbuminemia ICD Codes: E88.09 - Other disorders of plasma-protein metabolism, not elsewhere classified SNOMED: 246566583 (3) Lower GI bleed ICD Codes: K92.2 - Gastrointestinal hemorrhage, unspecified SNOMED: 79468885 (4) Iron deficiency ICD Codes: E61.1 - Iron deficiency SNOMED: 77153366 Status: stable Status Narrative Discussed with Dr. Pimentel. Assessment/Plan hold off colonoscopy at this time >> bleed from s/p hemorrhoidectomy colace/miralax monitor H&H, transfuse prn iron deficient >> venofer cardiac diet okay to restart any cardiac meds per primary fu labs Subjective Gastrointestinal/Abdominal: Reports: no symptoms Objective Last 24 Hour Vital Signs Date Time Temp Pulse Resp B/P Pulse Ox O2 Delivery O2 Flow Rate FiO2 09/11/16 08:34 72 124/43 09/11/16 08:33 72 09/11/16 08:12 98.2 72 18 124/43 98 Room Air 09/11/16 08:00 76 09/11/16 04:00 60 09/11/16 04:00 97.0 54 20 106/48 97 Room Air 09/11/16 00:25 98.1 54 20 127/45 97 Room Air 09/10/16 21:00 61 98/52 09/10/16 20:00 67 09/10/16 20:00 61 18 98/52 Nasal Cannula 2.0 98 09/10/16 16:00 98.2 56 20 106/46 99 Room Air 09/10/16 16:00 48 09/10/16 12:00 47 09/10/16 11:48 96.8 52 20 115/59 98 Nasal Cannula 98.0 Intake and Output 09/10/16 09/11/16 19:00 07:00 Intake Total 390 ml 240 ml Output Total 1015 ml 800 ml Balance -625 ml -560 ml Intake Oral 290 ml 240 ml Blood Product 100 ml Output Urine Total 1015 ml 800 ml # Bowel Movements 1 Laboratory Tests Test 09/11/16 06:00 White Blood Count 6.1 K/UL (4.8-10.8) Red Blood Count 3.03 M/UL (4.20-5.40) L Hemoglobin 8.5 G/DL (12.0-16.0) L Hematocrit 26.6 % (37.0-47.0) L Mean Corpuscular Volume 88 FL (80-99) Mean Corpuscular Hemoglobin 28.1 PG (27.0-31.0) Mean Corpuscular Hemoglobin Concent 32.0 G/DL (32.0-36.0) Red Cell Distribution Width 15.0 % (11.6-14.8) H Platelet Count 283 K/UL (150-450) Mean Platelet Volume 6.1 FL (6.5-10.1) L Neutrophils (%) (Auto) 72.9 % (45.0-75.0) Lymphocytes (%) (Auto) 17.8 % (20.0-45.0) L Monocytes (%) (Auto) 7.5 % (1.0-10.0) Eosinophils (%) (Auto) 1.2 % (0.0-3.0) Basophils (%) (Auto) 0.6 % (0.0-2.0) Reticulocyte Count 1.9 % (0.0-2.0) Prothrombin Time 10.9 SEC (9.30-11.50) Prothromb Time International Ratio 1.1 (0.9-1.1) Activated Partial Thromboplast Time 30 SEC (23-33) Sodium Level 144 mEQ/L (135-145) Potassium Level 4.2 mEQ/L (3.4-4.9) Chloride Level 106 mEQ/L (98-107) Carbon Dioxide Level 29 mEQ/L (20-30) Anion Gap 9 (5-15) Blood Urea Nitrogen 21 mg/dL (7-23) Creatinine 1.0 mg/dL (0.5-0.9) H Estimat Glomerular Filtration Rate mL/min (>60) Glucose Level 117 mg/dL (74-106) H Calcium Level 8.3 mg/dL (8.6-10.2) L Iron Level 13 ug/dL (37-145) L Total Iron Binding Capacity 343 ug/dL (250-400) Percent Iron Saturation 4 % (15-50) L Unsaturated Iron Binding 330 ug/dL (112-346) Ferritin 13 ng/mL (13-150) Carcinoembryonic Antigen 1.7 ng/mL Vitamin B12 Level 494 pg/mL (211-946) Folate Pending Thyroid Stimulating Hormone (TSH) 1.270 uIU/mL (0.300-4.500) Free Thyroxine 1.33 ng/dL (0.86-1.85) Height (Feet): 5 Height (Inches): 2.00 Weight (Pounds): 101 General Appearance: no apparent distress, alert, thin Cardiovascular: normal rate Respiratory/Chest: normal breath sounds, no respiratory distress Abdominal Exam: normal bowel sounds, non tender, soft Objective scant blood noted on rectum per RN report Meagan Jensen N.P. Sep 11, 2016 11:13
--- NOTE | 2016-09-11 11:23 | Wound Care Consultation ---
Wound Assessment Wound Assessment : Wound Number: #1 Wound Present on Admission: Yes New Wound: No Status Change of Wound: No Wound Location Body Site Modif: right Wound Location Body Site: ischial tuberosity Wound Type: pressure ulcer Jerald Test: Does not Jerald Pressure Ulcer Stage: III Wound Thickness: Full Thickness Wound Length: 4.0 Wound Width: 2.0 Wound Depth: 0.2 Percent of Wound [place]/Red: 100 Wound Drainage Description: Serosanguineous Wound Drainage Amount: Scant Wound Drainage Odor: None/Absent Tissue Surrounding Wound: Macerated Wound General Appearance: Reddened Wound Comment #1 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 Recommendation. -Apply Low Air Loss Overlay mattress. -Local wound care as ordered. -Optimize Nutrition. -Turn and Reposition. -Avoid friction and shearing. -Offload Right tuberosity wound site. -Keep clean and dry. -Float heels and feet. -Heel protectors if needed. -Assess and notify MD for any changes noted. TONY SHARP Sep 11, 2016 11:23
[2016-09-11 11:49] VITALS: BP 111/50
--- NOTE | 2016-09-11 14:26 | General Progress Note ---
Progress Note Progress Note Surgery denies further bleeding small spotting from the thrombus avss nad thrombus resolving no e/o infection, o/w soft no active bleeding, residual spotting from the thrombus rectal bleeding, MV, anticoag as per cards and primary support no surgery planned at moment stable for transfer AWA LAWS Sep 11, 2016 14:26
[2016-09-11 16:00] VITALS: BP_SYST 127; BP_SYST 130; BP_DIAS 42; BP_DIAS 74
--- NOTE | 2016-09-11 17:18 | Cardiology Progress Note ---
Assessment/Plan Status: stable, progressing Status Narrative Mrs. Galloway has had no further gi bleeding. GI eval noted. She has indications for anticoagulation - mechanical MV and AF. She has ? of CAD and had been scheduled for cor angio at [facility] Assessment/Plan Restart lovenox. Close monitoring of h/h Continue other cardiac meds, incl statin, b krupa, lasix. ? asa Agree w/ plan for transfer to [facility] Subjective ROS Limited/Unobtainable: No Subjective No further rectal bleeding noted. She has no c/o n/v or abd pain Objective Last 24 Hour Vital Signs Date Time Temp Pulse Resp B/P Pulse Ox O2 Delivery O2 Flow Rate FiO2 09/11/16 16:00 98.2 117 20 130/74 90 Room Air 09/11/16 12:00 55 09/11/16 11:49 98.1 54 20 111/50 97 Room Air 09/11/16 08:34 72 124/43 09/11/16 08:33 72 09/11/16 08:12 98.2 72 18 124/43 98 Room Air 09/11/16 08:00 76 09/11/16 04:00 60 09/11/16 04:00 97.0 54 20 106/48 97 Room Air 09/11/16 00:25 98.1 54 20 127/45 97 Room Air 09/10/16 21:00 61 98/52 09/10/16 20:00 67 09/10/16 20:00 61 18 98/52 Nasal Cannula 2.0 98 General Appearance: WD/WN, no apparent distress, alert EENT: pale conjunctivae Neck: supple, normal inspection, no JVD Rhythm: Afib Cardiovascular: bradycardia, systolic murmur, other - mechanical s2 Respiratory/Chest: lungs clear Abdomen: normal bowel sounds, non tender, soft Intake and Output 09/10/16 09/11/16 19:00 07:00 Intake Total 390 ml 240 ml Output Total 1015 ml 800 ml Balance -625 ml -560 ml Intake Oral 290 ml 240 ml Blood Product 100 ml Output Urine Total 1015 ml 800 ml # Bowel Movements 1 Laboratory Tests Test 09/11/16 06:00 White Blood Count 6.1 K/UL (4.8-10.8) Red Blood Count 3.03 M/UL (4.20-5.40) L Hemoglobin 8.5 G/DL (12.0-16.0) L Hematocrit 26.6 % (37.0-47.0) L Mean Corpuscular Volume 88 FL (80-99) Mean Corpuscular Hemoglobin 28.1 PG (27.0-31.0) Mean Corpuscular Hemoglobin Concent 32.0 G/DL (32.0-36.0) Red Cell Distribution Width 15.0 % (11.6-14.8) H Platelet Count 283 K/UL (150-450) Mean Platelet Volume 6.1 FL (6.5-10.1) L Neutrophils (%) (Auto) 72.9 % (45.0-75.0) Lymphocytes (%) (Auto) 17.8 % (20.0-45.0) L Monocytes (%) (Auto) 7.5 % (1.0-10.0) Eosinophils (%) (Auto) 1.2 % (0.0-3.0) Basophils (%) (Auto) 0.6 % (0.0-2.0) Reticulocyte Count 1.9 % (0.0-2.0) Prothrombin Time 10.9 SEC (9.30-11.50) Prothromb Time International Ratio 1.1 (0.9-1.1) Activated Partial Thromboplast Time 30 SEC (23-33) Sodium Level 144 mEQ/L (135-145) Potassium Level 4.2 mEQ/L (3.4-4.9) Chloride Level 106 mEQ/L (98-107) Carbon Dioxide Level 29 mEQ/L (20-30) Anion Gap 9 (5-15) Blood Urea Nitrogen 21 mg/dL (7-23) Creatinine 1.0 mg/dL (0.5-0.9) H Estimat Glomerular Filtration Rate mL/min (>60) Glucose Level 117 mg/dL (74-106) H Calcium Level 8.3 mg/dL (8.6-10.2) L Iron Level 13 ug/dL (37-145) L Total Iron Binding Capacity 343 ug/dL (250-400) Percent Iron Saturation 4 % (15-50) L Unsaturated Iron Binding 330 ug/dL (112-346) Ferritin 13 ng/mL (13-150) Carcinoembryonic Antigen 1.7 ng/mL Vitamin B12 Level 494 pg/mL (211-946) Folate Pending Thyroid Stimulating Hormone (TSH) 1.270 uIU/mL (0.300-4.500) Free Thyroxine 1.33 ng/dL (0.86-1.85) Microbiology Date/Time Source Procedure Growth Status 09/09/16 10:10 Nasal Nares MRSA Culture - Final NO METHICILLIN RESISTANT STAPH AUREUS... Complete 09/09/16 10:10 Rectum VRE Culture - Final NO VANCOMYCIN RESISTANT ENTEROCOCCUS ... Complete BARB AMES Sep 11, 2016 17:18
--- NOTE | 2016-09-11 17:26 | Internal Med Progress Note ---
Subjective Date of Service: Sep 11, 2016 Physician Name Nikki Taylor Attending Physician Kobi Real MD Current Medications Medications (Trade) Dose Ordered Sig/Grisel Route PRN Reason Start Time Stop Time Status Last Admin Dose Admin Atorvastatin Calcium (Lipitor) 40 mg BEDTIME ORAL 09/09/16 21:00 10/09/16 20:59 09/10/16 22:40 Carvedilol (Coreg) 3.125 mg EVERY 12 HOURS ORAL 09/09/16 21:00 10/09/16 20:59 09/11/16 08:34 Dextrose (Dextrose 50%) STAT PRN IV Hypoglycemia 09/09/16 15:45 10/09/16 15:44 Digoxin (Lanoxin) 0.125 mg DAILY ORAL 09/10/16 09:00 10/10/16 08:59 09/11/16 08:33 Docusate Sodium (Colace) 100 mg THREE TIMES A DAY ORAL 09/10/16 13:00 10/10/16 12:59 09/11/16 12:25 Enoxaparin Sodium 50 mg 50 mg Q12HR@0600,1800 SUBQ 09/10/16 18:00 10/10/16 17:59 09/11/16 05:46 Furosemide (Lasix) 40 mg TWICE A DAY ORAL 09/09/16 18:00 10/09/16 17:59 09/11/16 08:34 Insulin Aspart (NovoLOG) BEFORE MEALS AND HS SUBQ 09/09/16 16:30 10/09/16 16:29 09/11/16 11:28 Iron Sucrose/ Sodium Chloride (Venofer/Sodium Chloride 50ml bag) 55 ml @ 200 mls/hr BEDTIME IVPB 09/11/16 21:00 09/15/16 21:17 Metformin HCl (Glucophage) 850 mg TID ORAL 09/09/16 18:00 10/09/16 17:59 09/11/16 12:25 Polyethylene Glycol (Miralax) 17 gm BEDTIME ORAL 09/10/16 21:00 10/10/16 20:59 09/10/16 22:40 Prednisolone Acetate (Pred Forte) 1 drop QID RIGHT EYE 09/09/16 18:00 10/09/16 17:59 09/11/16 12:25 Allergies: Coded Allergies: No Known Allergies (Unverified , 08/28/16) ROS Limited/Unobtainable: No Constitutional: Reports: no symptoms HEENT: Reports: no symptoms Cardiovascular: Reports: no symptoms Respiratory: Reports: no symptoms Gastrointestinal/Abdominal: Reports: no symptoms Genitourinary: Reports: no symptoms Neurologic/Psychiatric: Reports: no symptoms Subjective Cover for Scott Real. S/P transfusion 4 units PRBC Objective Last Vital Signs Date Time Temp Pulse Resp B/P Pulse Ox O2 Delivery O2 Flow Rate FiO2 09/11/16 16:00 98.2 76 20 127/42 99 Room Air 09/10/16 20:00 2.0 98 Laboratory Tests Test 09/11/16 06:00 White Blood Count 6.1 K/UL (4.8-10.8) Red Blood Count 3.03 M/UL (4.20-5.40) L Hemoglobin 8.5 G/DL (12.0-16.0) L Hematocrit 26.6 % (37.0-47.0) L Mean Corpuscular Volume 88 FL (80-99) Mean Corpuscular Hemoglobin 28.1 PG (27.0-31.0) Mean Corpuscular Hemoglobin Concent 32.0 G/DL (32.0-36.0) Red Cell Distribution Width 15.0 % (11.6-14.8) H Platelet Count 283 K/UL (150-450) Mean Platelet Volume 6.1 FL (6.5-10.1) L Neutrophils (%) (Auto) 72.9 % (45.0-75.0) Lymphocytes (%) (Auto) 17.8 % (20.0-45.0) L Monocytes (%) (Auto) 7.5 % (1.0-10.0) Eosinophils (%) (Auto) 1.2 % (0.0-3.0) Basophils (%) (Auto) 0.6 % (0.0-2.0) Reticulocyte Count 1.9 % (0.0-2.0) Prothrombin Time 10.9 SEC (9.30-11.50) Prothromb Time International Ratio 1.1 (0.9-1.1) Activated Partial Thromboplast Time 30 SEC (23-33) Sodium Level 144 mEQ/L (135-145) Potassium Level 4.2 mEQ/L (3.4-4.9) Chloride Level 106 mEQ/L (98-107) Carbon Dioxide Level 29 mEQ/L (20-30) Anion Gap 9 (5-15) Blood Urea Nitrogen 21 mg/dL (7-23) Creatinine 1.0 mg/dL (0.5-0.9) H Estimat Glomerular Filtration Rate mL/min (>60) Glucose Level 117 mg/dL (74-106) H Calcium Level 8.3 mg/dL (8.6-10.2) L Iron Level 13 ug/dL (37-145) L Total Iron Binding Capacity 343 ug/dL (250-400) Percent Iron Saturation 4 % (15-50) L Unsaturated Iron Binding 330 ug/dL (112-346) Ferritin 13 ng/mL (13-150) Carcinoembryonic Antigen 1.7 ng/mL Vitamin B12 Level 494 pg/mL (211-946) Folate Pending Thyroid Stimulating Hormone (TSH) 1.270 uIU/mL (0.300-4.500) Free Thyroxine 1.33 ng/dL (0.86-1.85) Microbiology Date/Time Source Procedure Growth Status 09/09/16 10:10 Nasal Nares MRSA Culture - Final NO METHICILLIN RESISTANT STAPH AUREUS... Complete 09/09/16 10:10 Rectum VRE Culture - Final NO VANCOMYCIN RESISTANT ENTEROCOCCUS ... Complete Intake and Output 09/10/16 09/11/16 19:00 07:00 Intake Total 390 ml 240 ml Output Total 1015 ml 800 ml Balance -625 ml -560 ml Intake Oral 290 ml 240 ml Blood Product 100 ml Output Urine Total 1015 ml 800 ml # Bowel Movements 1 Objective General Appearance: WD/WN, no apparent distress, alert, thin EENT: PERRL/EOMI, normal ENT inspection, TMs normal Neck: non-tender, normal alignment, supple, normal inspection Cardiovascular: normal peripheral pulses, normal rate, regular rhythm, no gallop/murmur, no JVD Respiratory/Chest: chest wall non-tender, lungs clear, normal breath sounds, no respiratory distress, no accessory muscle use Abdomen: non tender, soft, no organomegaly, no mass, decreased bowel sounds Extremities: normal range of motion 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 (2) HTN (hypertension) (3) Atrial fibrillation Assessment & Plan: Cont digoxin (4) Lower GI bleed Assessment & Plan: See GI note. ?due to recent hemorrhoidectomy. Hold colonoscopy per GI. Hold coumadin; restart lovenox per cardiology (5) Iron deficiency (6) Profound anemia Assessment & Plan: Due to rectal bleed secondary to hemorrhoidectomy. S/P transfusion 4 units PRBC. Anemia workup in progress (7) CAD (coronary artery disease) Assessment & Plan: See cardiology note. Cardiac cath scheduled at [facility]. (8) S/P hemorrhoidectomy Status: progressing NIKKI TAYLOR Sep 11, 2016 17:26
[2016-09-11 20:00] VITALS: BP 116/46
[2016-09-11] MEDS: Miralax 17gm pkt ORAL SCH (20:02)
[2016-09-12] VITALS (7 sets, daily range): BP systolic 110–135; BP diastolic 45–70
[2016-09-12] MEDS: NovoLOG Insulin Flexpen SUBQ SCH ×4 (06:10→21:51)
[2016-09-12] MEDS: Enoxaparin 60mg Inj SUBQ SCH ×2 (06:11→18:18)
[2016-09-12 06:57] LABS: BASOPHILS % (AUTO) 0.8 % (0.0-2.0); EOSINOPHILS % (AUTO) 1.4 % (0.0-3.0); LYMPHOCYTES % (AUTO) 15.8 % (20.0-45.0); MEAN CORPUSCULAR HEMOGLOBIN 27.2 PG (27.0-31.0); MEAN CORPUSCULAR HGB CONC 30.8 G/DL (32.0-36.0); MEAN CORPUSCULAR VOLUME 88 FL (80-99); MEAN PLATELET VOLUME 5.5 FL (6.5-10.1); MONOCYTES % (AUTO) 7.1 % (1.0-10.0); PLATELET COUNT 297 K/UL (150-450); RED BLOOD COUNT 3.11 M/UL (4.20-5.40); WHITE BLOOD COUNT 6.9 K/UL (4.8-10.8)
[2016-09-12 07:25] LABS: ANION GAP 11 (5-15); CALCIUM 8.4 mg/dL (8.6-10.2); CARBON DIOXIDE 29 mEQ/L (20-30); CHLORIDE 106 mEQ/L (98-107); CREATININE 0.9 mg/dL (0.5-0.9); HEMOLYSIS 4; POTASSIUM 4.2 mEQ/L (3.4-4.9); SODIUM 146 mEQ/L (135-145)
[2016-09-12] MEDS: Docusate 100mg cap ORAL SCH ×3 (10:19→18:10)
[2016-09-12] MEDS: Furosemide 40mg tab ORAL SCH ×2 (10:19→18:10)
[2016-09-12] MEDS: Pred Forte 1% Opth Susp 1ml RIGHT EYE SCH ×4 (10:19→21:52)
[2016-09-12] MEDS: Digoxin 0.125mg tab ORAL SCH (10:23)
--- NOTE | 2016-09-12 10:54 | GI Progress Note ---
Assessment/Plan Problems: (1) Profound anemia ICD Codes: D64.9 - Anemia, unspecified SNOMED: 637249554 Qualifiers: Qualified Codes: D62 - Acute posthemorrhagic anemia (2) Hypoalbuminemia ICD Codes: E88.09 - Other disorders of plasma-protein metabolism, not elsewhere classified SNOMED: 092426539 (3) Lower GI bleed ICD Codes: K92.2 - Gastrointestinal hemorrhage, unspecified SNOMED: 10077369 (4) Iron deficiency ICD Codes: E61.1 - Iron deficiency SNOMED: 27540499 Status: stable, progressing Status Narrative Discussed with Dr. Pimentel. Assessment/Plan hold off colonoscopy at this time >> bleed from s/p hemorrhoidectomy colace/miralax monitor H&H, transfuse prn iron deficient >> venofer cardiac diet okay to restart any cardiac meds per primary fu labs Subjective Gastrointestinal/Abdominal: Reports: no symptoms Objective Last 24 Hour Vital Signs Date Time Temp Pulse Resp B/P Pulse Ox O2 Delivery O2 Flow Rate FiO2 09/12/16 10:23 66 09/12/16 10:19 86 112/54 09/12/16 08:54 98.6 86 18 112/54 100 Room Air 09/12/16 04:10 98.1 57 20 121/67 100 Room Air 09/12/16 04:08 48 09/12/16 00:05 68 09/12/16 00:00 98.2 79 20 126/56 99 Room Air 09/11/16 20:01 65 127/42 09/11/16 20:00 98.6 61 18 116/46 Nasal Cannula 2.0 99 09/11/16 20:00 67 09/11/16 16:00 65 09/11/16 16:00 98.2 76 20 127/42 99 Room Air 09/11/16 12:00 55 09/11/16 11:49 98.1 54 20 111/50 97 Room Air Intake and Output 09/11/16 09/12/16 19:00 07:00 Intake Total 100 ml 200 ml Output Total 200 ml 902 ml Balance -100 ml -702 ml Intake Oral 100 ml IV Total 200 ml Output Urine Total 200 ml 902 ml Laboratory Tests Test 09/12/16 05:40 White Blood Count 6.9 K/UL (4.8-10.8) Red Blood Count 3.11 M/UL (4.20-5.40) L Hemoglobin 8.5 G/DL (12.0-16.0) L Hematocrit 27.5 % (37.0-47.0) L Mean Corpuscular Volume 88 FL (80-99) Mean Corpuscular Hemoglobin 27.2 PG (27.0-31.0) Mean Corpuscular Hemoglobin Concent 30.8 G/DL (32.0-36.0) L Red Cell Distribution Width 15.0 % (11.6-14.8) H Platelet Count 297 K/UL (150-450) Mean Platelet Volume 5.5 FL (6.5-10.1) L Neutrophils (%) (Auto) 75.0 % (45.0-75.0) Lymphocytes (%) (Auto) 15.8 % (20.0-45.0) L Monocytes (%) (Auto) 7.1 % (1.0-10.0) Eosinophils (%) (Auto) 1.4 % (0.0-3.0) Basophils (%) (Auto) 0.8 % (0.0-2.0) Sodium Level 146 mEQ/L (135-145) H Potassium Level 4.2 mEQ/L (3.4-4.9) Chloride Level 106 mEQ/L (98-107) Carbon Dioxide Level 29 mEQ/L (20-30) Anion Gap 11 (5-15) Blood Urea Nitrogen 24 mg/dL (7-23) H Creatinine 0.9 mg/dL (0.5-0.9) Estimat Glomerular Filtration Rate mL/min (>60) Glucose Level 110 mg/dL (74-106) H Calcium Level 8.4 mg/dL (8.6-10.2) L Height (Feet): 5 Height (Inches): 2.00 Weight (Pounds): 101 General Appearance: no apparent distress, alert, thin Cardiovascular: normal rate Respiratory/Chest: normal breath sounds, no respiratory distress Abdominal Exam: normal bowel sounds, non tender, soft Extremities: normal range of motion Objective scant blood noted on rectum per RN report Meagan Jensen N.P. Sep 12, 2016 10:54
--- NOTE | 2016-09-12 16:21 | Internal Med Progress Note ---
Subjective Physician Name Kobi Real Attending Physician Kobi Real MD Current Medications Medications (Trade) Dose Ordered Sig/Grisel Route PRN Reason Start Time Stop Time Status Last Admin Dose Admin Atorvastatin Calcium (Lipitor) 40 mg BEDTIME ORAL 09/09/16 21:00 10/09/16 20:59 09/11/16 20:01 Carvedilol (Coreg) 3.125 mg EVERY 12 HOURS ORAL 09/09/16 21:00 10/09/16 20:59 09/12/16 10:19 Dextrose (Dextrose 50%) STAT PRN IV Hypoglycemia 09/09/16 15:45 10/09/16 15:44 Digoxin (Lanoxin) 0.125 mg DAILY ORAL 09/10/16 09:00 10/10/16 08:59 09/12/16 10:23 Docusate Sodium (Colace) 100 mg THREE TIMES A DAY ORAL 09/10/16 13:00 10/10/16 12:59 09/12/16 13:14 Enoxaparin Sodium 50 mg 50 mg Q12HR@0600,1800 SUBQ 09/10/16 18:00 10/10/16 17:59 09/12/16 06:11 Furosemide (Lasix) 40 mg TWICE A DAY ORAL 09/09/16 18:00 10/09/16 17:59 09/12/16 10:19 Insulin Aspart (NovoLOG) BEFORE MEALS AND HS SUBQ 09/09/16 16:30 10/09/16 16:29 09/12/16 13:20 Iron Sucrose/ Sodium Chloride (Venofer/Sodium Chloride 50ml bag) 55 ml @ 200 mls/hr BEDTIME IVPB 09/11/16 21:00 09/15/16 21:17 09/11/16 20:02 Metformin HCl (Glucophage) 850 mg TID ORAL 09/09/16 18:00 10/09/16 17:59 09/12/16 13:15 Polyethylene Glycol (Miralax) 17 gm BEDTIME ORAL 09/10/16 21:00 10/10/16 20:59 09/11/16 20:02 Prednisolone Acetate (Pred Forte) 1 drop QID RIGHT EYE 09/09/16 18:00 10/09/16 17:59 09/12/16 13:15 Allergies: Coded Allergies: No Known Allergies (Unverified , 08/28/16) Subjective awake, alert, responsive, No BM today yet. Yesterday Dark Brown BM, No BRBPR, Hgb: 8.5 stable Objective Last Vital Signs Date Time Temp Pulse Resp B/P Pulse Ox O2 Delivery O2 Flow Rate FiO2 09/12/16 12:00 96.4 58 20 118/55 100 Nasal Cannula 2.0 09/11/16 20:00 99 Laboratory Tests Test 09/12/16 05:40 White Blood Count 6.9 K/UL (4.8-10.8) Red Blood Count 3.11 M/UL (4.20-5.40) L Hemoglobin 8.5 G/DL (12.0-16.0) L Hematocrit 27.5 % (37.0-47.0) L Mean Corpuscular Volume 88 FL (80-99) Mean Corpuscular Hemoglobin 27.2 PG (27.0-31.0) Mean Corpuscular Hemoglobin Concent 30.8 G/DL (32.0-36.0) L Red Cell Distribution Width 15.0 % (11.6-14.8) H Platelet Count 297 K/UL (150-450) Mean Platelet Volume 5.5 FL (6.5-10.1) L Neutrophils (%) (Auto) 75.0 % (45.0-75.0) Lymphocytes (%) (Auto) 15.8 % (20.0-45.0) L Monocytes (%) (Auto) 7.1 % (1.0-10.0) Eosinophils (%) (Auto) 1.4 % (0.0-3.0) Basophils (%) (Auto) 0.8 % (0.0-2.0) Sodium Level 146 mEQ/L (135-145) H Potassium Level 4.2 mEQ/L (3.4-4.9) Chloride Level 106 mEQ/L (98-107) Carbon Dioxide Level 29 mEQ/L (20-30) Anion Gap 11 (5-15) Blood Urea Nitrogen 24 mg/dL (7-23) H Creatinine 0.9 mg/dL (0.5-0.9) Estimat Glomerular Filtration Rate mL/min (>60) Glucose Level 110 mg/dL (74-106) H Calcium Level 8.4 mg/dL (8.6-10.2) L Intake and Output 1/5/17 1/6/17 19:00 07:00 Intake Total 100 ml 200 ml Output Total 200 ml 902 ml Balance -100 ml -702 ml Intake Oral 100 ml IV Total 200 ml Output Urine Total 200 ml 902 ml Objective GENERAL: The patient is awake, responsive, no acute distress. HEENT: Pupils are equal and reactive to light. less Pallor conjunctiva. NECK: Supple. No JVD. LUNGS: Good air entry. No wheezing or rales. HEART: S1 and S2 irregular. Systolic ejection murmur was noted. Mechanical click was noted on the left sternal border. ABDOMEN: Soft, nontender, and nondistended. Positive bowel sounds. EXTREMITIES: No cyanosis, clubbing, or edema. NEUROLOGIC: Cranial nerves II through XII are grossly intact. Moves all four extremities. Assessment/Plan Assessment/Plan 1. Severe anemia due to acute blood loss. 2. Rectal bleeding. 3. Diabetes type 2. 4. Hypertension. 5. History of cerebrovascular accident. 6. Atrial fibrillation. 7. Mild abnormal electrocardiogram. 8. History of enlarged hemorrhoids status post a recent hemorrhoidectomy. PLAN: on telemetry. blood transfusion as needed Monitor laboratory H/H colorectal consultation with Dr. Gael Brooks, Gastrointestinal consultation with Dr. Charan Pimentel, and Cardiology consultation with Dr. Travis Harltey. anticoagulation with Lovenox. Code status is Full Code. Kobi Real MD Sep 12, 2016 16:21
--- NOTE | 2016-09-12 20:33 | Cardiac Electrophysiology PN ---
Assessment/Plan Status: stable, progressing Status Narrative Mrs. Galloway has had no further gi bleeding. Per GI, bleed was from hemorrhoid surgery Has mechanical MVR and AF - needs chronic warfarin ac She has apparently had abnl stress test, and card cath had been planned at [facility] Assessment/Plan Restart lovenox, as plan for cardiac cath. Cont to hold warfarin Follow h/h Continue other cardiac meds, incl statin, b krupa, lasix. ? asa Subjective ROS Limited/Unobtainable: No Subjective Coverage for Dr. Hartley Pt has no c/o dyspnea , chest pain, or abd pain. No further rectal bleeding noted. Objective Last 24 Hour Vital Signs Date Time Temp Pulse Resp B/P Pulse Ox O2 Delivery O2 Flow Rate FiO2 09/12/16 20:00 98.1 80 14 118/45 100 09/12/16 16:00 98.2 61 19 135/70 100 09/12/16 12:00 96.4 58 20 118/55 100 Nasal Cannula 2.0 09/12/16 12:00 61 09/12/16 10:23 66 09/12/16 10:19 86 112/54 09/12/16 08:54 98.6 86 18 112/54 100 Room Air 09/12/16 08:00 75 09/12/16 04:10 98.1 57 20 121/67 100 Room Air 09/12/16 04:08 48 09/12/16 00:05 68 09/12/16 00:00 98.2 79 20 126/56 99 Room Air General Appearance: WD/WN, no apparent distress, alert, thin Neck: supple, no JVD Rhythm: Afib Cardiovascular: normal rate, irregularly irregular Respiratory/Chest: lungs clear Abdomen: normal bowel sounds, non tender, soft Extremities: no swelling Intake and Output 09/11/16 09/12/16 19:00 07:00 Intake Total 100 ml 200 ml Output Total 200 ml 902 ml Balance -100 ml -702 ml Intake Oral 100 ml IV Total 200 ml Output Urine Total 200 ml 902 ml Laboratory Tests Test 09/12/16 05:40 White Blood Count 6.9 K/UL (4.8-10.8) Red Blood Count 3.11 M/UL (4.20-5.40) L Hemoglobin 8.5 G/DL (12.0-16.0) L Hematocrit 27.5 % (37.0-47.0) L Mean Corpuscular Volume 88 FL (80-99) Mean Corpuscular Hemoglobin 27.2 PG (27.0-31.0) Mean Corpuscular Hemoglobin Concent 30.8 G/DL (32.0-36.0) L Red Cell Distribution Width 15.0 % (11.6-14.8) H Platelet Count 297 K/UL (150-450) Mean Platelet Volume 5.5 FL (6.5-10.1) L Neutrophils (%) (Auto) 75.0 % (45.0-75.0) Lymphocytes (%) (Auto) 15.8 % (20.0-45.0) L Monocytes (%) (Auto) 7.1 % (1.0-10.0) Eosinophils (%) (Auto) 1.4 % (0.0-3.0) Basophils (%) (Auto) 0.8 % (0.0-2.0) Sodium Level 146 mEQ/L (135-145) H Potassium Level 4.2 mEQ/L (3.4-4.9) Chloride Level 106 mEQ/L (98-107) Carbon Dioxide Level 29 mEQ/L (20-30) Anion Gap 11 (5-15) Blood Urea Nitrogen 24 mg/dL (7-23) H Creatinine 0.9 mg/dL (0.5-0.9) Estimat Glomerular Filtration Rate mL/min (>60) Glucose Level 110 mg/dL (74-106) H Calcium Level 8.4 mg/dL (8.6-10.2) BARB HUERTA Sep 12, 2016 20:33
[2016-09-12] MEDS: Miralax 17gm pkt ORAL SCH (21:48)
[2016-09-13 04:32] VITALS: BP 116/61
[2016-09-13] MEDS: NovoLOG Insulin Flexpen SUBQ SCH ×4 (06:07→21:12)
[2016-09-13] MEDS: Enoxaparin 60mg Inj SUBQ SCH ×2 (06:09→18:14)
[2016-09-13 07:31] LABS: ALANINE AMINOTRANSFERASE 9 U/L (3-33); ALBUMIN/GLOBULIN RATIO 1.2 (1.0-2.7); ANION GAP 11 (5-15); ASPARTATE AMINO TRANSFERASE 15 U/L (5-40); BASOPHILS % (AUTO) 0.7 % (0.0-2.0); CALCIUM 9.6 mg/dL (8.6-10.2); CARBON DIOXIDE 33 mEQ/L (20-30); CHLORIDE 104 mEQ/L (98-107); EOSINOPHILS % (AUTO) 1.9 % (0.0-3.0); HEMOLYSIS 4; LYMPHOCYTES % (AUTO) 16.6 % (20.0-45.0); MEAN CORPUSCULAR HEMOGLOBIN 28.4 PG (27.0-31.0); MEAN CORPUSCULAR HGB CONC 33.4 G/DL (32.0-36.0); MEAN CORPUSCULAR VOLUME 85 FL (80-99); MEAN PLATELET VOLUME 5.9 FL (6.5-10.1); MONOCYTES % (AUTO) 7.9 % (1.0-10.0); NEUTROPHILS % (AUTO) 72.9 % (45.0-75.0); PLATELET COUNT 296 K/UL (150-450); POTASSIUM 4.5 mEQ/L (3.4-4.9); RED CELL DISTRIBUTION WIDTH 16.1 % (11.6-14.8); SODIUM 148 mEQ/L (135-145); TOTAL PROTEIN 6.8 g/dL (6.6-8.7); WHITE BLOOD COUNT 6.9 K/UL (4.8-10.8)
[2016-09-13 07:54] LABS: MAGNESIUM 1.7 mg/dL (1.7-2.5); PHOSPHORUS 3.1 mg/dL (2.5-4.8)
[2016-09-13 08:30] VITALS: BP 111/45
[2016-09-13] MEDS: Pred Forte 1% Opth Susp 1ml RIGHT EYE SCH ×4 (09:06→21:10)
[2016-09-13] MEDS: Digoxin 0.125mg tab ORAL SCH (09:07)
[2016-09-13] MEDS: Furosemide 40mg tab ORAL SCH ×2 (09:07→18:11)
[2016-09-13] MEDS: Docusate 100mg cap ORAL SCH ×3 (09:07→18:12)
--- NOTE | 2016-09-13 11:49 | General Progress Note ---
Progress Note Progress Note Surgery pt reported seeing some blood today again otherwise feels okay, denies syncopal epsidoes denies pain avss nad rectal exam no blood prior thrombus over the wound has passed s/p hemorrhoid, has MV - needs to be on coagulation - can't hold blood she noted can be due to the thrombus on the hemorrhoidectomy wound passing no active bleeding on exam cont current mgmt dc planning AWA LAWS Sep 13, 2016 11:49
[2016-09-13 12:00] VITALS: BP 112/63
--- NOTE | 2016-09-13 12:53 | Cardiac Electrophysiology PN ---
Assessment/Plan Status: stable, unchanged Status Narrative Mrs. Galloway reports small amt of BRBPR this am H/h are stable, however Per GI, recent bleed was from hemorrhoid surgery Has mechanical MVR and AF - needs chronic warfarin ac She has apparently had abnl stress test, and card cath had been planned at [facility] Assessment/Plan Continue lovenox plan for cardiac cath. Cont to hold warfarin Follow h/h and monitor for any further evidence of gi bleed Continue other cardiac meds, incl statin, b krupa, lasix. ? asa ? Transfer to [facility] for planned cor angiography If pt cannot be transferred, then would discharge when stable, on lovenox, to have card cath as outpt. Subjective ROS Limited/Unobtainable: No Subjective Coverage for Dr. Hartley Pt reports passing a small amt of blood w/ stool today. No abd pain No dizziness, chest pain or dyspnea Objective Last 24 Hour Vital Signs Date Time Temp Pulse Resp B/P Pulse Ox O2 Delivery O2 Flow Rate FiO2 09/13/16 09:12 98 111/45 09/13/16 09:07 98 09/13/16 08:30 97.2 98 19 111/45 99 Nasal Cannula 2.0 99 09/13/16 04:32 97.9 57 18 116/61 99 Nasal Cannula 2.0 99 09/13/16 03:53 63 09/12/16 23:58 97.5 66 18 110/52 99 Nasal Cannula 2.0 99 09/12/16 23:20 82 09/12/16 21:49 77 112/43 09/12/16 20:00 98.1 80 14 118/45 100 09/12/16 20:00 83 09/12/16 16:00 65 09/12/16 16:00 98.2 61 19 135/70 100 General Appearance: WD/WN, no apparent distress, thin Neck: supple, no JVD Rhythm: Afib Cardiovascular: normal rate, no gallop/murmur, irregularly irregular Respiratory/Chest: lungs clear Abdomen: normal bowel sounds, non tender, soft Intake and Output 09/12/16 09/13/16 19:00 07:00 Intake Total 600 ml 640 ml Output Total 400 ml 1950 ml Balance 200 ml -1310 ml Intake Oral 600 ml 440 ml IV Total 200 ml Output Urine Total 400 ml 1950 ml Laboratory Tests Test 09/13/16 06:45 White Blood Count 6.9 K/UL (4.8-10.8) Red Blood Count 3.30 M/UL (4.20-5.40) L Hemoglobin 9.4 G/DL (12.0-16.0) L Hematocrit 28.1 % (37.0-47.0) L Mean Corpuscular Volume 85 FL (80-99) Mean Corpuscular Hemoglobin 28.4 PG (27.0-31.0) Mean Corpuscular Hemoglobin Concent 33.4 G/DL (32.0-36.0) Red Cell Distribution Width 16.1 % (11.6-14.8) H Platelet Count 296 K/UL (150-450) Mean Platelet Volume 5.9 FL (6.5-10.1) L Neutrophils (%) (Auto) 72.9 % (45.0-75.0) Lymphocytes (%) (Auto) 16.6 % (20.0-45.0) L Monocytes (%) (Auto) 7.9 % (1.0-10.0) Eosinophils (%) (Auto) 1.9 % (0.0-3.0) Basophils (%) (Auto) 0.7 % (0.0-2.0) Sodium Level 148 mEQ/L (135-145) H Potassium Level 4.5 mEQ/L (3.4-4.9) Chloride Level 104 mEQ/L (98-107) Carbon Dioxide Level 33 mEQ/L (20-30) H Anion Gap 11 (5-15) Blood Urea Nitrogen 24 mg/dL (7-23) H Creatinine 1.0 mg/dL (0.5-0.9) H Estimat Glomerular Filtration Rate mL/min (>60) Glucose Level 115 mg/dL (74-106) H Calcium Level 9.6 mg/dL (8.6-10.2) Phosphorus Level 3.1 mg/dL (2.5-4.8) Magnesium Level 1.7 mg/dL (1.7-2.5) Total Bilirubin 0.4 mg/dL (0.0-1.2) Aspartate Amino Transf (AST/SGOT) 15 U/L (5-40) Alanine Aminotransferase (ALT/SGPT) 9 U/L (3-33) Alkaline Phosphatase 106 U/L (35-104) H Total Protein 6.8 g/dL (6.6-8.7) Albumin 3.8 g/dL (3.5-5.2) Globulin 3.0 g/dL Albumin/Globulin Ratio 1.2 (1.0-2.7) BARB AMES Sep 13, 2016 12:53
--- NOTE | 2016-09-13 13:48 | Internal Med Progress Note ---
Subjective Date of Service: Sep 13, 2016 Physician Name Sher Taylor Attending Physician Kobi Real MD Current Medications Medications (Trade) Dose Ordered Sig/Grisel Route PRN Reason Start Time Stop Time Status Last Admin Dose Admin Atorvastatin Calcium (Lipitor) 40 mg BEDTIME ORAL 09/09/16 21:00 10/09/16 20:59 09/12/16 21:48 Carvedilol (Coreg) 3.125 mg EVERY 12 HOURS ORAL 09/09/16 21:00 10/09/16 20:59 09/13/16 09:12 Dextrose (Dextrose 50%) STAT PRN IV Hypoglycemia 09/09/16 15:45 10/09/16 15:44 Digoxin (Lanoxin) 0.125 mg DAILY ORAL 09/10/16 09:00 10/10/16 08:59 09/13/16 09:07 Docusate Sodium (Colace) 100 mg THREE TIMES A DAY ORAL 09/10/16 13:00 10/10/16 12:59 09/13/16 13:02 Enoxaparin Sodium 50 mg 50 mg Q12HR@0600,1800 SUBQ 09/10/16 18:00 10/10/16 17:59 09/13/16 06:09 Furosemide (Lasix) 40 mg TWICE A DAY ORAL 09/09/16 18:00 10/09/16 17:59 09/13/16 09:07 Insulin Aspart (NovoLOG) BEFORE MEALS AND HS SUBQ 09/09/16 16:30 10/09/16 16:29 09/12/16 21:51 Iron Sucrose/ Sodium Chloride (Venofer/Sodium Chloride 50ml bag) 55 ml @ 200 mls/hr BEDTIME IVPB 09/11/16 21:00 09/15/16 21:17 09/12/16 21:49 Metformin HCl (Glucophage) 850 mg TID ORAL 09/09/16 18:00 10/09/16 17:59 09/13/16 13:00 Polyethylene Glycol (Miralax) 17 gm BEDTIME ORAL 09/10/16 21:00 10/10/16 20:59 09/12/16 21:48 Prednisolone Acetate (Pred Forte) 1 drop QID RIGHT EYE 09/09/16 18:00 10/09/16 17:59 09/13/16 13:02 Allergies: Coded Allergies: No Known Allergies (Unverified , 08/28/16) Subjective 70 YO F admitted with rectal hemorrhage. Small amt bright red blood per rectum this am. Cover for Int Med-Dr Real. S/P transfusion 4 units PRBC Objective Last Vital Signs Date Time Temp Pulse Resp B/P Pulse Ox O2 Delivery O2 Flow Rate FiO2 09/13/16 09:12 98 111/45 09/13/16 08:30 97.2 19 99 Nasal Cannula 2.0 99 Laboratory Tests Test 09/13/16 06:45 White Blood Count 6.9 K/UL (4.8-10.8) Red Blood Count 3.30 M/UL (4.20-5.40) L Hemoglobin 9.4 G/DL (12.0-16.0) L Hematocrit 28.1 % (37.0-47.0) L Mean Corpuscular Volume 85 FL (80-99) Mean Corpuscular Hemoglobin 28.4 PG (27.0-31.0) Mean Corpuscular Hemoglobin Concent 33.4 G/DL (32.0-36.0) Red Cell Distribution Width 16.1 % (11.6-14.8) H Platelet Count 296 K/UL (150-450) Mean Platelet Volume 5.9 FL (6.5-10.1) L Neutrophils (%) (Auto) 72.9 % (45.0-75.0) Lymphocytes (%) (Auto) 16.6 % (20.0-45.0) L Monocytes (%) (Auto) 7.9 % (1.0-10.0) Eosinophils (%) (Auto) 1.9 % (0.0-3.0) Basophils (%) (Auto) 0.7 % (0.0-2.0) Sodium Level 148 mEQ/L (135-145) H Potassium Level 4.5 mEQ/L (3.4-4.9) Chloride Level 104 mEQ/L (98-107) Carbon Dioxide Level 33 mEQ/L (20-30) H Anion Gap 11 (5-15) Blood Urea Nitrogen 24 mg/dL (7-23) H Creatinine 1.0 mg/dL (0.5-0.9) H Estimat Glomerular Filtration Rate mL/min (>60) Glucose Level 115 mg/dL (74-106) H Calcium Level 9.6 mg/dL (8.6-10.2) Phosphorus Level 3.1 mg/dL (2.5-4.8) Magnesium Level 1.7 mg/dL (1.7-2.5) Total Bilirubin 0.4 mg/dL (0.0-1.2) Aspartate Amino Transf (AST/SGOT) 15 U/L (5-40) Alanine Aminotransferase (ALT/SGPT) 9 U/L (3-33) Alkaline Phosphatase 106 U/L (35-104) H Total Protein 6.8 g/dL (6.6-8.7) Albumin 3.8 g/dL (3.5-5.2) Globulin 3.0 g/dL Albumin/Globulin Ratio 1.2 (1.0-2.7) Intake and Output 09/12/16 09/13/16 19:00 07:00 Intake Total 600 ml 640 ml Output Total 400 ml 1950 ml Balance 200 ml -1310 ml Intake Oral 600 ml 440 ml IV Total 200 ml Output Urine Total 400 ml 1950 ml Objective General Appearance: WD/WN, no apparent distress, alert, thin EENT: PERRL/EOMI, normal ENT inspection, TMs normal Neck: non-tender, normal alignment, supple, normal inspection Cardiovascular: normal peripheral pulses, normal rate, regular rhythm, no gallop/murmur, no JVD Respiratory/Chest: chest wall non-tender, lungs clear, normal breath sounds, no respiratory distress, no accessory muscle use Abdomen: non tender, soft, no organomegaly, no mass, decreased bowel sounds Extremities: normal range of motion 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 (2) HTN (hypertension) (3) Atrial fibrillation Assessment & Plan: Cont digoxin (4) Lower GI bleed Assessment & Plan: See GI note. ?due to recent hemorrhoidectomy. Hold colonoscopy per GI. Hold coumadin; restart lovenox per cardiology (5) Iron deficiency (6) Profound anemia Assessment & Plan: Due to rectal bleed secondary to hemorrhoidectomy. S/P transfusion 4 units PRBC. Anemia workup in progress (7) CAD (coronary artery disease) Assessment & Plan: See cardiology note. Cardiac cath scheduled at [facility]. (8) S/P hemorrhoidectomy Assessment/Plan Transfer to [facility] for cardiac cath-see cardiology note. SHER TAYLOR Sep 13, 2016 13:48
[2016-09-13] MEDS ORDERED: NS 275ml ONE (17:03)
[2016-09-13] MEDS ORDERED: NS Irrig 1000ml ONE (17:03)
[2016-09-13 20:00] VITALS: BP 123/62
[2016-09-13] MEDS: Miralax 17gm pkt ORAL SCH (21:10)
[2016-09-14] VITALS: BP 126/49
[2016-09-14 04:00] VITALS: BP 116/70
[2016-09-14] MEDS: Enoxaparin 60mg Inj SUBQ SCH ×2 (06:02→19:24)
[2016-09-14] MEDS: NovoLOG Insulin Flexpen SUBQ SCH ×4 (06:03→21:54)
[2016-09-14 07:30] LABS: BASOPHILS % (AUTO) 1.1 % (0.0-2.0); EOSINOPHILS % (AUTO) 2.1 % (0.0-3.0); LYMPHOCYTES % (AUTO) 18.3 % (20.0-45.0); MEAN CORPUSCULAR HEMOGLOBIN 28.6 PG (27.0-31.0); MEAN CORPUSCULAR HGB CONC 32.5 G/DL (32.0-36.0); MEAN CORPUSCULAR VOLUME 88 FL (80-99); MEAN PLATELET VOLUME 5.3 FL (6.5-10.1); MONOCYTES % (AUTO) 6.6 % (1.0-10.0); NEUTROPHILS % (AUTO) 71.9 % (45.0-75.0); PLATELET COUNT 299 K/UL (150-450); RED BLOOD COUNT 3.25 M/UL (4.20-5.40); RED CELL DISTRIBUTION WIDTH 16.2 % (11.6-14.8); WHITE BLOOD COUNT 6.8 K/UL (4.8-10.8)
[2016-09-14 07:41] LABS: ANION GAP 11 (5-15); CALCIUM 9.9 mg/dL (8.6-10.2); CARBON DIOXIDE 33 mEQ/L (20-30); CHLORIDE 99 mEQ/L (98-107); HEMOLYSIS 3; POTASSIUM 4.2 mEQ/L (3.4-4.9); SODIUM 143 mEQ/L (135-145)
[2016-09-14 08:00] VITALS: BP 109/58
[2016-09-14] MEDS: Digoxin 0.125mg tab ORAL SCH (09:05)
[2016-09-14] MEDS: Furosemide 40mg tab ORAL SCH ×2 (09:05→19:22)
[2016-09-14] MEDS: Docusate 100mg cap ORAL SCH ×3 (09:06→19:21)
[2016-09-14] MEDS: Pred Forte 1% Opth Susp 1ml RIGHT EYE SCH ×4 (09:07→21:00)
--- NOTE | 2016-09-14 11:46 | General Progress Note ---
Assessment/Plan Problem List: (1) Iron deficiency ICD Codes: E61.1 - Iron deficiency SNOMED: 99041871 (2) Hypoalbuminemia ICD Codes: E88.09 - Other disorders of plasma-protein metabolism, not elsewhere classified SNOMED: 075268870 (3) Atrial fibrillation ICD Codes: I48.91 - Unspecified atrial fibrillation SNOMED: 08849569 (4) Diabetes mellitus ICD Codes: E11.9 - Type 2 diabetes mellitus without complications SNOMED: 22550696 (5) HTN (hypertension) ICD Codes: I10 - Essential (primary) hypertension SNOMED: 58316161 (6) CAD (coronary artery disease) ICD Codes: I25.10 - Atherosclerotic heart disease of [place] coronary artery without angina pectoris SNOMED: 94350079 (7) Lower GI bleed ICD Codes: K92.2 - Gastrointestinal hemorrhage, unspecified SNOMED: 49875889 (8) S/P hemorrhoidectomy ICD Codes: Z98.890 - Other specified postprocedural states; Z87.19 - Personal history of other diseases of the digestive system SNOMED: 58433759, 44927983, 614824710 Assessment/Plan stable H&H fu labs hold GI procedures for now fu surg recs Subjective Allergies: Coded Allergies: No Known Allergies (Unverified , 08/28/16) All Systems: reviewed and negative except above Objective Last 24 Hour Vital Signs Date Time Temp Pulse Resp B/P Pulse Ox O2 Delivery O2 Flow Rate FiO2 09/14/16 09:05 74 09/14/16 09:00 81 109/58 09/14/16 08:00 97.9 81 16 109/58 98 Room Air 09/14/16 04:00 99.0 98 18 116/70 98 Room Air 09/14/16 00:00 97.2 81 18 126/49 96 Room Air 09/13/16 21:10 71 112/63 09/13/16 20:00 96.6 99 18 123/62 98 Room Air 09/13/16 20:00 99 09/13/16 16:00 95 09/13/16 12:00 71 09/13/16 12:00 97.7 81 20 112/63 99 Nasal Cannula 2.0 97 Intake and Output 09/13/16 09/14/16 19:00 07:00 Intake Total 350 ml 105 ml Output Total 350 ml 150 ml Balance 0 ml -45 ml Intake Oral 350 ml 50 ml IV Total 55 ml Output Urine Total 350 ml 150 ml # Bowel Movements 1 Laboratory Tests 09/14/16 06:15: White Blood Count 6.8, Red Blood Count 3.25L, Hemoglobin 9.3L, Hematocrit 28.6L , Mean Corpuscular Volume 88, Mean Corpuscular Hemoglobin 28.6, Mean Corpuscular Hemoglobin Concent 32.5, Red Cell Distribution Width 16.2H, Platelet Count 299, Mean Platelet Volume 5.3L, Neutrophils (%) (Auto) 71.9, Lymphocytes (%) (Auto) 18.3L, Monocytes (%) (Auto) 6.6, Eosinophils (%) (Auto) 2.1, Basophils (%) (Auto) 1.1, Sodium Level 143, Potassium Level 4.2, Chloride Level 99, Carbon Dioxide Level 33H, Anion Gap 11, Blood Urea Nitrogen 32H, Creatinine 1.0H, Estimat Glomerular Filtration Rate , Glucose Level 105, Calcium Level 9.9 Height (Feet): 5 Height (Inches): 2.00 Weight (Pounds): 101 General Appearance: no apparent distress EENT: normal ENT inspection Neck: normal inspection Cardiovascular: normal rate Respiratory/Chest: decreased breath sounds Abdomen: normal bowel sounds, non tender, soft Extremities: non-tender YVES BURCH Sep 14, 2016 11:46
[2016-09-14 12:00] VITALS: BP 114/50
--- NOTE | 2016-09-14 12:39 | Cardiac Electrophysiology PN ---
Assessment/Plan Status: stable, progressing Status Narrative Mrs. Galloway has stable h/h - no active bleed She is receiving iv FE She remains on lovenox, for mech MVR and permanent AF Assessment/Plan Continue lovenox 1 mg/kg bid, for MVR and AF while off warfarin Continue to monitor h/h Digoxin and coreg for rate control in AF, and coreg for poss CAD ? transfer to [facility] for cardiac cath, which had been previously scheduled for last week, vs dc for outpt cath . Subjective ROS Limited/Unobtainable: No Subjective Coverage for Dr. Hartley Pt c/o weakness. Has not had further bloody stool. No c/o abd pain, n/v , dyspnea or palpitations. No CP Objective Last 24 Hour Vital Signs Date Time Temp Pulse Resp B/P Pulse Ox O2 Delivery O2 Flow Rate FiO2 09/14/16 09:05 74 09/14/16 09:00 81 109/58 09/14/16 08:00 97.9 81 16 109/58 98 Room Air 09/14/16 04:00 99.0 98 18 116/70 98 Room Air 09/14/16 00:00 97.2 81 18 126/49 96 Room Air 09/13/16 21:10 71 112/63 09/13/16 20:00 96.6 99 18 123/62 98 Room Air 09/13/16 20:00 99 09/13/16 16:00 95 General Appearance: WD/WN, no apparent distress, mild distress, thin EENT: PERRL/EOMI Neck: no JVD Rhythm: Afib Cardiovascular: irregularly irregular - irregular mech s1 s2 Respiratory/Chest: lungs clear Abdomen: non tender, soft Extremities: no swelling Intake and Output 09/13/16 09/14/16 19:00 07:00 Intake Total 350 ml 105 ml Output Total 350 ml 150 ml Balance 0 ml -45 ml Intake Oral 350 ml 50 ml IV Total 55 ml Output Urine Total 350 ml 150 ml # Bowel Movements 1 Laboratory Tests Test 09/14/16 06:15 White Blood Count 6.8 K/UL (4.8-10.8) Red Blood Count 3.25 M/UL (4.20-5.40) L Hemoglobin 9.3 G/DL (12.0-16.0) L Hematocrit 28.6 % (37.0-47.0) L Mean Corpuscular Volume 88 FL (80-99) Mean Corpuscular Hemoglobin 28.6 PG (27.0-31.0) Mean Corpuscular Hemoglobin Concent 32.5 G/DL (32.0-36.0) Red Cell Distribution Width 16.2 % (11.6-14.8) H Platelet Count 299 K/UL (150-450) Mean Platelet Volume 5.3 FL (6.5-10.1) L Neutrophils (%) (Auto) 71.9 % (45.0-75.0) Lymphocytes (%) (Auto) 18.3 % (20.0-45.0) L Monocytes (%) (Auto) 6.6 % (1.0-10.0) Eosinophils (%) (Auto) 2.1 % (0.0-3.0) Basophils (%) (Auto) 1.1 % (0.0-2.0) Sodium Level 143 mEQ/L (135-145) Potassium Level 4.2 mEQ/L (3.4-4.9) Chloride Level 99 mEQ/L (98-107) Carbon Dioxide Level 33 mEQ/L (20-30) H Anion Gap 11 (5-15) Blood Urea Nitrogen 32 mg/dL (7-23) H Creatinine 1.0 mg/dL (0.5-0.9) H Estimat Glomerular Filtration Rate mL/min (>60) Glucose Level 105 mg/dL (74-106) Calcium Level 9.9 mg/dL (8.6-10.2) BARB AMES Sep 14, 2016 12:39
[2016-09-14 15:59] VITALS: BP 125/49
[2016-09-14 19:00] VITALS: BP 106/55
--- NOTE | 2016-09-14 19:52 | Internal Med Progress Note ---
Subjective Date of Service: Sep 14, 2016 Physician Name Sher Taylor Attending Physician Kobi Real MD Current Medications Medications (Trade) Dose Ordered Sig/Grisel Route PRN Reason Start Time Stop Time Status Last Admin Dose Admin Atorvastatin Calcium (Lipitor) 40 mg BEDTIME ORAL 09/14/16 21:00 10/14/16 20:59 Carvedilol (Coreg) 3.125 mg EVERY 12 HOURS ORAL 09/14/16 09:00 10/14/16 08:59 Dextrose (Dextrose 50%) STAT PRN IV Hypoglycemia 09/14/16 15:45 10/14/16 15:44 Digoxin (Lanoxin) 0.125 mg DAILY ORAL 09/14/16 09:00 10/14/16 08:59 09/14/16 09:05 Docusate Sodium (Colace) 100 mg THREE TIMES A DAY ORAL 09/14/16 09:00 10/14/16 08:59 09/14/16 19:21 Enoxaparin Sodium (Lovenox) 50 mg Q12HR@0600,1800 SUBQ 09/14/16 06:00 10/14/16 05:59 09/14/16 19:24 Furosemide (Lasix) 40 mg TWICE A DAY ORAL 09/14/16 09:00 10/14/16 08:59 09/14/16 19:22 Insulin Aspart (NovoLOG) BEFORE MEALS AND HS SUBQ 09/14/16 06:30 10/14/16 06:29 09/14/16 06:03 Iron Sucrose/ Sodium Chloride (Venofer/Sodium Chloride 50ml bag) 55 ml @ 200 mls/hr BEDTIME IVPB 09/14/16 21:00 09/15/16 21:01 Metformin HCl (Glucophage) 850 mg TID ORAL 09/14/16 09:00 10/14/16 08:59 09/14/16 19:21 Polyethylene Glycol (Miralax) 17 gm BEDTIME ORAL 09/14/16 21:00 10/14/16 20:59 Prednisolone Acetate (Pred Forte) 1 drop QID RIGHT EYE 09/14/16 09:00 10/14/16 08:59 09/14/16 18:00 Allergies: Coded Allergies: No Known Allergies (Unverified , 08/28/16) Subjective 70 YO F admitted with rectal hemorrhage. Small amt bright red blood per rectum this am. Cover for Int Med-Dr Real. S/P transfusion 4 units PRBC Objective Last Vital Signs Date Time Temp Pulse Resp B/P Pulse Ox O2 Delivery O2 Flow Rate FiO2 09/14/16 15:59 97.9 62 20 125/49 97 Room Air 09/13/16 12:00 2.0 97 Laboratory Tests Test 09/14/16 06:15 White Blood Count 6.8 K/UL (4.8-10.8) Red Blood Count 3.25 M/UL (4.20-5.40) L Hemoglobin 9.3 G/DL (12.0-16.0) L Hematocrit 28.6 % (37.0-47.0) L Mean Corpuscular Volume 88 FL (80-99) Mean Corpuscular Hemoglobin 28.6 PG (27.0-31.0) Mean Corpuscular Hemoglobin Concent 32.5 G/DL (32.0-36.0) Red Cell Distribution Width 16.2 % (11.6-14.8) H Platelet Count 299 K/UL (150-450) Mean Platelet Volume 5.3 FL (6.5-10.1) L Neutrophils (%) (Auto) 71.9 % (45.0-75.0) Lymphocytes (%) (Auto) 18.3 % (20.0-45.0) L Monocytes (%) (Auto) 6.6 % (1.0-10.0) Eosinophils (%) (Auto) 2.1 % (0.0-3.0) Basophils (%) (Auto) 1.1 % (0.0-2.0) Sodium Level 143 mEQ/L (135-145) Potassium Level 4.2 mEQ/L (3.4-4.9) Chloride Level 99 mEQ/L (98-107) Carbon Dioxide Level 33 mEQ/L (20-30) H Anion Gap 11 (5-15) Blood Urea Nitrogen 32 mg/dL (7-23) H Creatinine 1.0 mg/dL (0.5-0.9) H Estimat Glomerular Filtration Rate mL/min (>60) Glucose Level 105 mg/dL (74-106) Calcium Level 9.9 mg/dL (8.6-10.2) Intake and Output 09/13/16 09/14/16 19:00 07:00 Intake Total 350 ml 105 ml Output Total 350 ml 150 ml Balance 0 ml -45 ml Intake Oral 350 ml 50 ml IV Total 55 ml Output Urine Total 350 ml 150 ml # Bowel Movements 1 Objective General Appearance: WD/WN, no apparent distress, alert, thin EENT: PERRL/EOMI, normal ENT inspection, TMs normal Neck: non-tender, normal alignment, supple, normal inspection Cardiovascular: normal peripheral pulses, normal rate, regular rhythm, no gallop/murmur, no JVD Respiratory/Chest: chest wall non-tender, lungs clear, normal breath sounds, no respiratory distress, no accessory muscle use Abdomen: non tender, soft, no organomegaly, no mass, decreased bowel sounds Extremities: normal range of motion 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 (2) HTN (hypertension) (3) Atrial fibrillation Assessment & Plan: Cont digoxin (4) Lower GI bleed Assessment & Plan: See GI note. ?due to recent hemorrhoidectomy. Hold colonoscopy per GI. Hold coumadin; restart lovenox per cardiology (5) Iron deficiency (6) Profound anemia Assessment & Plan: Due to rectal bleed secondary to hemorrhoidectomy. S/P transfusion 4 units PRBC. Anemia workup in progress (7) CAD (coronary artery disease) Assessment & Plan: See cardiology note. Cardiac cath scheduled at [facility]. (8) S/P hemorrhoidectomy Assessment/Plan Transfer to [facility] for cardiac cath-see cardiology note. SHER TAYLOR Sep 14, 2016 19:52
[2016-09-14] MEDS ORDERED: Miralax 17gm pkt ORAL SCH (21:00)
[2016-09-15] VITALS: BP 121/81
[2016-09-15 04:00] VITALS: BP 112/60
[2016-09-15] MEDS: Enoxaparin 60mg Inj SUBQ SCH (06:01)
[2016-09-15] MEDS: NovoLOG Insulin Flexpen SUBQ SCH ×2 (06:30→13:16)
[2016-09-15 08:00] VITALS: BP 123/59
[2016-09-15 08:26] LABS: BASOPHILS % (AUTO) 1.3 % (0.0-2.0); EOSINOPHILS % (AUTO) 2.5 % (0.0-3.0); LYMPHOCYTES % (AUTO) 17.9 % (20.0-45.0); MEAN CORPUSCULAR HEMOGLOBIN 27.4 PG (27.0-31.0); MEAN CORPUSCULAR HGB CONC 30.7 G/DL (32.0-36.0); MEAN CORPUSCULAR VOLUME 89 FL (80-99); MEAN PLATELET VOLUME 5.6 FL (6.5-10.1); MONOCYTES % (AUTO) 7.6 % (1.0-10.0); NEUTROPHILS % (AUTO) 70.6 % (45.0-75.0); PLATELET COUNT 277 K/UL (150-450); RED BLOOD COUNT 3.37 M/UL (4.20-5.40); RED CELL DISTRIBUTION WIDTH 16.5 % (11.6-14.8); WHITE BLOOD COUNT 6.2 K/UL (4.8-10.8)
[2016-09-15 08:55] LABS: ANION GAP 15 (5-15); CARBON DIOXIDE 30 mEQ/L (20-30); CHLORIDE 100 mEQ/L (98-107); POTASSIUM 4.1 mEQ/L (3.4-4.9); SODIUM 145 mEQ/L (135-145)
[2016-09-15 08:56] LABS: CALCIUM 10.1 mg/dL (8.6-10.2); HEMOLYSIS 6
[2016-09-15] MEDS: Digoxin 0.125mg tab ORAL SCH (10:28)
[2016-09-15] MEDS: Furosemide 40mg tab ORAL SCH (10:29)
[2016-09-15] MEDS: Docusate 100mg cap ORAL SCH ×2 (10:29→13:13)
[2016-09-15] MEDS: Pred Forte 1% Opth Susp 1ml RIGHT EYE SCH ×2 (11:07→13:13)
[2016-09-15 12:00] VITALS: BP 146/52
--- NOTE | 2016-09-15 12:05 | Discharge Summary ---
Discharge Summary Hospital Course Date of Admission Sep 09, 2016 at 09:01 Date of Discharge Admitting Diagnosis profound anemia ARY Galloway is a 70 year old female who was admitted on Sep 09, 2016 at 09: 01 for Profound Anemia Hospital Course Dictated for Int Med-Dr Real no. [id number]. Discharge Discharge Disposition Patient was discharged to Discharge Diagnoses: NIKKI TAYLOR Sep 15, 2016 12:05
--- NOTE | 2016-09-15 13:57 | GI Progress Note ---
Assessment/Plan Problems: (1) Profound anemia ICD Codes: D64.9 - Anemia, unspecified SNOMED: 285993259 Qualifiers: Qualified Codes: D62 - Acute posthemorrhagic anemia (2) Hypoalbuminemia ICD Codes: E88.09 - Other disorders of plasma-protein metabolism, not elsewhere classified SNOMED: 071457945 (3) Lower GI bleed ICD Codes: K92.2 - Gastrointestinal hemorrhage, unspecified SNOMED: 80733153 (4) Iron deficiency ICD Codes: E61.1 - Iron deficiency SNOMED: 23485744 Status: stable, progressing Status Narrative Discussed with Dr. Pimentel. Assessment/Plan ok for DC per GI standpoint hold off colonoscopy at this time >> bleed from s/p hemorrhoidectomy >> stable H &H colace/miralax monitor H&H, transfuse prn iron deficient >> venofer cardiac diet fu labs outpatient f/u with [facility] surgery Subjective Gastrointestinal/Abdominal: Reports: rectal bleeding - scant amounts Objective Last 24 Hour Vital Signs Date Time Temp Pulse Resp B/P Pulse Ox O2 Delivery O2 Flow Rate FiO2 09/15/16 12:00 97.0 60 18 146/52 98 Room Air 09/15/16 10:29 95 123/59 09/15/16 10:28 95 09/15/16 08:00 97.9 95 18 123/59 97 Room Air 09/15/16 04:00 97.9 72 19 112/60 97 Room Air 09/15/16 00:00 98.2 85 20 121/81 93 Room Air 09/14/16 21:51 84 106/55 09/14/16 19:00 98.1 84 20 106/55 97 Room Air 09/14/16 15:59 97.9 62 20 125/49 97 Room Air Intake and Output 09/14/16 09/15/16 19:00 07:00 Intake Total 420 ml 175 ml Output Total 750 ml 700 ml Balance -330 ml -525 ml Intake Oral 420 ml 120 ml IV Total 55 ml Output Urine Total 750 ml 700 ml # Voids 3 # Bowel Movements 2 Laboratory Tests Test 09/15/16 07:00 White Blood Count 6.2 K/UL (4.8-10.8) Red Blood Count 3.37 M/UL (4.20-5.40) L Hemoglobin 9.2 G/DL (12.0-16.0) L Hematocrit 30.0 % (37.0-47.0) L Mean Corpuscular Volume 89 FL (80-99) Mean Corpuscular Hemoglobin 27.4 PG (27.0-31.0) Mean Corpuscular Hemoglobin Concent 30.7 G/DL (32.0-36.0) L Red Cell Distribution Width 16.5 % (11.6-14.8) H Platelet Count 277 K/UL (150-450) Mean Platelet Volume 5.6 FL (6.5-10.1) L Neutrophils (%) (Auto) 70.6 % (45.0-75.0) Lymphocytes (%) (Auto) 17.9 % (20.0-45.0) L Monocytes (%) (Auto) 7.6 % (1.0-10.0) Eosinophils (%) (Auto) 2.5 % (0.0-3.0) Basophils (%) (Auto) 1.3 % (0.0-2.0) Sodium Level 145 mEQ/L (135-145) Potassium Level 4.1 mEQ/L (3.4-4.9) Chloride Level 100 mEQ/L (98-107) Carbon Dioxide Level 30 mEQ/L (20-30) Anion Gap 15 (5-15) Blood Urea Nitrogen 34 mg/dL (7-23) H Creatinine 1.0 mg/dL (0.5-0.9) H Estimat Glomerular Filtration Rate mL/min (>60) Glucose Level 108 mg/dL (74-106) H Calcium Level 10.1 mg/dL (8.6-10.2) Height (Feet): 5 Height (Inches): 2.00 Weight (Pounds): 101 General Appearance: no apparent distress, alert, thin Cardiovascular: normal rate Respiratory/Chest: normal breath sounds, no respiratory distress Abdominal Exam: normal bowel sounds, non tender, soft Extremities: normal range of motion Objective scant blood noted on rectum per RN report Meagan Jensen N.P. Sep 15, 2016 13:57
[2016-09-15 16:12] VITALS: BP 129/58
--- NOTE | 2016-09-16 05:07 | Discharge Summary ---
DATE OF ADMISSION: 09/09/2016 DATE OF DISCHARGE: 09/15/2016 ADMITTING DIAGNOSES: 1. Rectal hemorrhage. 2. Anemia of blood loss. 3. Hypertension. 4. Diabetes type. 5. Atrial fibrillation. 6. Coronary artery disease. DISCHARGE DIAGNOSES: 1. Rectal hemorrhage. 2. Anemia. 3. Hypertension. 4. Diabetes type. 5. Atrial fibrillation. 6. Coronary artery disease. HOSPITAL COURSE BY PROBLEM LIST: 1. Rectal hemorrhage/anemia. The patient was admitted with a hemoglobin of 3.7. The patient received a total of four units of packed RBCs during the hospitalization. Hemoglobin has been stable since 09/10/2016. The patient is to follow up with her statistical assistant at [facility]. 2. Hypertension. The patient remained on Coreg 3.125 mg one tablet p.o. daily. The patient is to follow up with her primary care physician for it. 3. Diabetes type 2. The patient remained on Glucophage 850 mg three times daily. The patient was also placed on a NovoLog sliding scale. Blood sugars have been well controlled during hospitalization. 4. Atrial fibrillation. Cardiology consultation was obtained with Dr. Mago Meade. The patient was scheduled for cardiac catheterization at [facility] during the hospitalization. This has been rescheduled. The patient is to follow up with her private exhibitions curator at [facility]. 5. Coronary artery disease. Please see atrial fibrillation as above. DISCHARGE MEDICATIONS: Please refer to discharge medication list. DISCHARGE INSTRUCTIONS: 1. The patient is discharged home today, on 09/15/2016. 2. The patient is to follow up with her primary exhibitions curator at [facility] for cardiac catheterization. Sher Hansen M.D. DR: MARY JOB#: [id number] CC:
== END 2016-09-15 17:00 | disposition home or self-care (01) | DRG 812 ==
LOC: EDBD 07:28 → EMR 07:55 → 2E 09:01 → EDBEDREQ 10:06 → 4E 09-13 22:56
DX: D62 Acute posthemorrhagic anemia (principal); E11.8 Type 2 diabetes mellitus with unspecified complications; E88.09 Other disorders of plasma-protein metabolism, not elsewhere classified; K62.5 Hemorrhage of anus and rectum; I48.2 Chronic atrial fibrillation; I10 Essential (primary) hypertension; Z86.73 Personal history of transient ischemic attack (TIA), and cerebral infarction without residual deficits; Z79.01 Long term (current) use of anticoagulants; Z95.2 Presence of prosthetic heart valve; E61.1 Iron deficiency; I25.10 Atherosclerotic heart disease of native coronary artery without angina pectoris; Z87.19 Personal history of other diseases of the digestive system; Z98.890 Other specified postprocedural states
CPT/HCPCS: 36415; 71010; 80048; 80053; 80162; 81003; 82378; 82550; 82607; 82728; 82746; 82962; 83540; 83550; 83605; 83735; 83880; 84100; 84439; 84443; 84484; 85007; 85025; 85044; 85610; 85730; 86850; 86900; 86901; 86920; 87081; 93005; 93306; J1815

== ENCOUNTER 2016-09-17 23:35 | Inpatient (IN) | payer MEDICARE, MEDICAID ==
[~2016-09-17] VITALS: Ht 157.5 cm; Wt 47.6 kg
[~2016-09-17 23:35] MED LIST: ACULAR5 ML BOTH EYES; ATORVASTATIN CA40 MG ORAL; CALCIUM 500 +1 EAC5 PO; CARVEDILOL6.25 MG ORAL; COLACE100 MG ORAL; DIGOXIN125 MCG ORAL; FAMOTIDINE20 MG ORAL; FERROUS SULFAT325 MG ORAL; FOSAMAX70 MG ORAL; FUROSEMIDE40 MG ORAL; LOSARTAN POTASS25 MG ORAL; LOVENOX10 M4 SUBQ; METFORMIN HCL1000 M1 ORAL; METFORMIN HCL850 M1 ORAL; OFLOXACIN5 ML OTIC; PRED FORTE1 ML OP; PRED FORTE1 ML RIGHT EYE; TRAMADOL HCL50 MG ORAL; WARFARIN SODIUM4 MG ORAL
[2016-09-18] VITALS (19 sets, daily range): BP systolic 109–163; BP diastolic 45–97
[2016-09-18 00:24] LABS: MEAN CORPUSCULAR HEMOGLOBIN 28.2 PG (27.0-31.0); MEAN CORPUSCULAR HGB CONC 33.1 G/DL (32.0-36.0); MEAN CORPUSCULAR VOLUME 85 FL (80-99); MEAN PLATELET VOLUME 6.2 FL (6.5-10.1); PLATELET COUNT 305 K/UL (150-450); RED BLOOD COUNT 3.84 M/UL (4.20-5.40); WHITE BLOOD COUNT 8.7 K/UL (4.8-10.8)
[2016-09-18 00:37] LABS: ALANINE AMINOTRANSFERASE 16 U/L (3-33); ALBUMIN/GLOBULIN RATIO 1.1 (1.0-2.7); ANION GAP 19 (5-15); ASPARTATE AMINO TRANSFERASE 34 U/L (5-40); CALCIUM 10.3 mg/dL (8.6-10.2); CARBON DIOXIDE 25 mEQ/L (20-30); CHLORIDE 94 mEQ/L (98-107); CREATININE 1.1 mg/dL (0.5-0.9); HEMOLYSIS 3; LIPASE 274 U/L (< 60); POTASSIUM 4.7 mEQ/L (3.4-4.9); SODIUM 138 mEQ/L (135-145); TOTAL PROTEIN 8.1 g/dL (6.6-8.7)
[2016-09-18] MEDS ORDERED: fentaNYL 100 mcg/2 mL IV ONE ×2 (02:45→17:00)
--- NOTE | 2016-09-18 03:35 | Emergency Room Report ---
History of Present Illness General Chief Complaint: Abdominal Pain Source: Patient, Family Member, EMS Present Illness HPI The patient presents with lower abdominal pain that began earlier today. It is intermittent and not constant. She's moved her bowels twice. This was worsened at a dentist office. She denies melena or hematochezia. She's been vomiting clear material. Her daughter gave her some chicken soup. This stayed down but the patient still feels nausea and intermittent severe low abdominal pain. H/O atrial fibrillation on digoxin. Denies chest pain, palpitations, dyspnea. No fevers, chills (though feels cold), dysuria, extremity pain. She feels extremely weak. Allergies: Coded Allergies: No Known Allergies (Unverified , 09/17/16) Patient History Past Medical History: see triage record Social History Narrative with daughter Last Menstrual Period: n/a Reviewed Nursing Documentation: PMH: Agreed, PSxH: Agreed Nursing Documentation-PMH Hx Cardiac Problems: Yes - Anorectal surgery, multiple valve replacements Hx Hypertension: Yes Hx Diabetes: Yes Hx Gastrointestinal Problems: No - Hemorrhoid Hx Cerebrovascular Accident: Yes - 1990 Hx Speech Problem: Yes - unable express self,limited conversation Hx Dizziness: Yes - 09/09 399 Hx Weakness: Yes - right side slightly weaker than left side body Review of Systems All Other Systems: negative except mentioned in HPI Physical Exam Vital Signs Date Time Temp Pulse Resp B/P Pulse Ox O2 Delivery O2 Flow Rate FiO2 09/17/16 23:35 97.5 80 16 150/62 97 09/18/16 00:00 Room Air Sp02 EP Interpretation: reviewed, normal General Appearance: no apparent distress, GCS 15, thin, Chronically Ill Head: normocephalic Eyes: bilateral eye PERRL, bilateral eye conjunctivae pale ENT: moist mucus membranes Neck: supple Respiratory: lungs clear, normal breath sounds Cardiovascular #1: no edema, irregularly irregular, other - barajas A waves occas Cardiovascular #2: 2+ radial (R) Gastrointestinal: normal inspection, normal bowel sounds, soft, no mass, non- distended, no guarding, no rebound, tenderness - diffuse Musculoskeletal: back normal, gait/station normal, normal range of motion Neurologic: alert, oriented x3, motor strength/tone normal, DTRs symmetric, sensory intact, speech normal Psychiatric: depressed affect, other - frail Skin: normal inspection, warm/dry, other - sallow Medical Decision Making Diagnostic Impression: Primary Impression: Abdominal pain Qualified Codes: R10.84 - Generalized abdominal pain Additional Impressions: Atrial fibrillation Qualified Codes: I48.2 - Chronic atrial fibrillation Diabetes mellitus ER Course Patient presents with 1 day of intermittent abdominal pain with loose stools and vomiting. Ddx: gastroenteritis, diverticulitis, ischemic bowel, UTI, AMI/ ACS amongst others. Patient is frail. Emergent evaluation with labs, CT, UA, EKG. EKG with dig effect/a fib/ possible ischemia. Labs below. Patient initially declined pain medicine, but then agreed and receive some relief. The patient's CT shows a question of possible bowel obstruction. History is inconsistent with this diagnosis. Patient's white count is normal. She also has some renal sufficiency. Because of the degree of pain and the CT she'll be admitted for observation. In addition to that her lipase is elevated at 274. Her pain isn't consistent with pancreatitis. Given her atrial fibrillation on digoxin and more likely cause of her pain is ischemic bowel disease. Laboratory Tests Test 09/18/16 00:00 White Blood Count 8.7 K/UL (4.8-10.8) Red Blood Count 3.84 M/UL (4.20-5.40) L Hemoglobin 10.8 G/DL (12.0-16.0) L Hematocrit 32.8 % (37.0-47.0) L Mean Corpuscular Volume 85 FL (80-99) Mean Corpuscular Hemoglobin 28.2 PG (27.0-31.0) Mean Corpuscular Hemoglobin Concent 33.1 G/DL (32.0-36.0) Red Cell Distribution Width 18.0 % (11.6-14.8) H Platelet Count 305 K/UL (150-450) Mean Platelet Volume 6.2 FL (6.5-10.1) L Neutrophils (%) (Auto) % (45.0-75.0) Lymphocytes (%) (Auto) % (20.0-45.0) Monocytes (%) (Auto) % (1.0-10.0) Eosinophils (%) (Auto) % (0.0-3.0) Basophils (%) (Auto) % (0.0-2.0) Sodium Level 138 mEQ/L (135-145) Potassium Level 4.7 mEQ/L (3.4-4.9) Chloride Level 94 mEQ/L (98-107) L Carbon Dioxide Level 25 mEQ/L (20-30) Anion Gap 19 (5-15) H Blood Urea Nitrogen 42 mg/dL (7-23) H Creatinine 1.1 mg/dL (0.5-0.9) H Estimate Glomerular Filtration Rate mL/min (>60) Glucose Level 187 mg/dL (74-106) H Calcium Level 10.3 mg/dL (8.6-10.2) H Total Bilirubin 0.5 mg/dL (0.0-1.2) Aspartate Amino Transferase (AST) 34 U/L (5-40) Alanine Aminotransferase (ALT) 16 U/L (3-33) Alkaline Phosphatase 119 U/L (35-104) H Total Protein 8.1 g/dL (6.6-8.7) Albumin 4.4 g/dL (3.5-5.2) Globulin 3.7 g/dL Albumin/Globulin Ratio 1.1 (1.0-2.7) Lipase 274 U/L (< 60) H Digoxin Level 1.6 ng/mL (0.5-2.0) EKG Diagnostic Results Rhythm: other ST Segments: other - changes c/w digoxin Rhythm Strip Diag. Results EP Interpretation: yes Rhythm: no PVC's, no ectopy, other - a fib CT/MRI/US Diagnostic Results CT/MRI/US Diagnostic Results : Imaging Test Ordered: CT abd Impression possible SBO IMPRESSION: Small bowel findings compatible with small bowel obstruction due to incarceration, possible strangulation of small bowel is incorporated into right inguinal hernia. Associated suggestion of mural thickening within the hernia sac may be due to stimulation or other underlying mural pathology. Neoplasm not excludable. No other evidence of acute abdominopelvic disease, with limitation as described. Subtle but potentially significant abnormalities the gastrointestinal tract may be missed. Repeat CT scan with full oral and IV contrast preparation recommended for more complete evaluation, as clinically indicated Severe arteriosclerosis with suggestion of multiple significant stenoses, possible SMA occlusion. Latter apparently compensated for by patent celiac axis supplying distal collateral reconstitution. Small bowel ischemia superimposed on above described obstructive findings cannot be excluded. Correlate clinically. Left renal cortical low-attenuation foci too small to characterize, probably but not definitely cysts. Ultrasound correlation suggested. Uterine myometrial mass, nonspecific, may represent degenerated/infarcted fibroid Four-chamber cardiomegaly with mitral and aortic valvular calcification, evidence of previous open heart surgery, evidence of significantly elevated right heart pressure versus tricuspid valve insufficiency Pulmonary bibasal subsegmental atelectasis Degenerative spondylosis Last Vital Signs Date Time Temp Pulse Resp B/P Pulse Ox O2 Delivery O2 Flow Rate FiO2 09/18/16 03:27 97.5 86 20 142/47 100 Room Air Disposition: ADMITTED INPATIENT Condition: Serious Referrals: NOT CHOSEN MIKE/,REFERRING (PCP) Alirio Cotter M.D. Sep 18, 2016 03:35
[2016-09-18 06:30] LABS: KETONES,URINE 1+ (NEGATIVE); LEUKOCYTE ESTERASE ,URINE 3+ (NEGATIVE); NITRITE,URINE NEGATIVE (NEGATIVE); PH,URINE 6 (4.5-8.0); PROTEIN,URINE 1+ (NEGATIVE); UROBILINOGEN,URINE NORMAL MG/DL (0.0-1.0)
[2016-09-18 06:31] LABS: APPEARANCE,URINE SLIGHTLY CLOUDY
[2016-09-18 06:40] LABS: BACTERIA,URINE FEW /HPF; SQUAMOUS EPITHELIAL CELL,UR FEW /LPF (NONE/OCC)
[2016-09-18] MEDS ORDERED: Morphine Sulfate 4mg/ml Inj IVP ONE (07:45)
--- NOTE | 2016-09-18 10:04 | Diagnostic Imaging Report ---
Indications: Abdominal pain Technique: Continuous helical CT imaging of the abdomen and pelvis was performed with automatic exposure control following administration of nonionic IV contrast only, on a Siemens sensation [address] scanner. Axial, coronal, sagittal images were reconstructed at 5 mm slice thickness. No oral contrast was administered per requesting physician's order, despite no contraindications listed in either submitted clinical data or tech note.. CTDI volume(s): 10 mGy Total DLP: 531 mGy-cm Findings: Comparison: None Lack of oral contrast limits evaluation of gastrointestinal tract. Multiple loops of small bowel dilated and fluid-filled to point of entry into right inguinal hernia. Loops within the hernia sac also dilated and fluid-filled. Associated mural thickening not excludable. Distal loops not dilated. Appendix unremarkable. Gas and feces throughout nondilated colon to rectum. No additional obvious mural thickening, adjacent stranding, extraluminal gas or fluid collections identified. Small subcentimeter circumscribed low-attenuation foci in left renal cortex. Prominent arterial mural calcifications. Apparent segmental high-grade stenosis to occlusion of proximal superior mesenteric artery with distal reconstitution. Celiac axis patent without obvious significant stenosis. Inferior mesenteric artery patent with possibility of high-grade origin stenosis. Significant bilateral renal, common iliac artery stenoses not excludable. Significant distention of inferior vena cava and hepatic veins 2 cm circumscribed low-attenuation mass in uterine myometrium. Liver, gallbladder, pancreas, spleen, adrenal glands, opacified ureters and urinary bladder, bilateral adnexal regions, retroperitoneum, mesentery, remainder visualized abdominopelvic anatomy unremarkable. Near and patchy opacities in both lung bases. Heart demonstrates four-chamber enlargement with prominent calcifications in the regions of mitral and aortic valves. Sternal wires. Mild disc space narrowing with marginal osteophyte formation in lumbar, lower thoracic spine. IMPRESSION: Small bowel findings compatible with small bowel obstruction due to incarceration, possible strangulation of small bowel is incorporated into right inguinal hernia. Associated suggestion of mural thickening within the hernia sac may be due to stimulation or other underlying mural pathology. Neoplasm not excludable. No other evidence of acute abdominopelvic disease, with limitation as described. Subtle but potentially significant abnormalities the gastrointestinal tract may be missed. Repeat CT scan with full oral and IV contrast preparation recommended for more complete evaluation, as clinically indicated Severe arteriosclerosis with suggestion of multiple significant stenoses, possible SMA occlusion. Latter apparently compensated for by patent celiac axis supplying distal collateral reconstitution. Small bowel ischemia superimposed on above described obstructive findings cannot be excluded. Correlate clinically. Left renal cortical low-attenuation foci too small to characterize, probably but not definitely cysts. Ultrasound correlation suggested. Uterine myometrial mass, nonspecific, may represent degenerated/infarcted fibroid Four-chamber cardiomegaly with mitral and aortic valvular calcification, evidence of previous open heart surgery, evidence of significantly elevated right heart pressure versus tricuspid valve insufficiency Pulmonary bibasal subsegmental atelectasis Degenerative spondylosis This correlates with [facility] preliminary report.
[2016-09-18] MEDS ORDERED: LR 1000ml 1,000 ML IVLG SCH (16:40)
--- NOTE | 2016-09-18 16:40 | Anethesia Preoperative Eval ---
Anesthesia Pre-op PMH/ROS General Date of Evaluation: Sep 18, 2016 Time of Evaluation: 16:56 Anesthesiologist: Lala ASA Score: ASA 3 - Emergency Mallampati Score Class I : Soft palate, uvula, fauces, pillars visible Class II: Soft palate, uvula, fauces visible Class III: Soft palate, base of uvula visible Class IV: Only hard plate visible Mallampati Classification: Class II Surgeon: Cecilia Diagnosis: Small Bowel Obstruction Surgical Procedure: Repair Femoral Hernia, Laparotomy, Small Bowel Resection Anesthesia History: none Family History: no anesthesia problems Allergies: Coded Allergies: No Known Allergies (Unverified , 09/17/16) Medications: see eMAR Past Medical History Cardiovascular: Reports: CAD, HTN, arrhythmia - AFib, valve dz - AVRX3 Neurologic/Psychiatric: Reports: CVA Endocrine: Reports: DM Hematology/Immune: Reports: anemia PSxH Narrative: Hemorrhoid SX, AVR Anesthesia Pre-op Phys. Exam Physician Exam Last Vital Signs Date Time Temp Pulse Resp B/P Pulse Ox O2 Delivery O2 Flow Rate FiO2 09/18/16 16:00 97.2 78 14 134/57 97 Room Air Constitutional: NAD Neurologic: CN 2-12 intact Cardiovascular: RRR Respiratory: CTA Gastrointestinal: S/NT/ND Airway Exam Mallampati Score: Class II MO: limited ROM: limited Teeth: missing, intact Anesthesia Pre-op A/P Labs Hematology Test 09/18/16 00:00 White Blood Count 8.7 K/UL (4.8-10.8) Red Blood Count 3.84 M/UL (4.20-5.40) L Hemoglobin 10.8 G/DL (12.0-16.0) L Hematocrit 32.8 % (37.0-47.0) L Mean Corpuscular Volume 85 FL (80-99) Mean Corpuscular Hemoglobin 28.2 PG (27.0-31.0) Mean Corpuscular Hemoglobin Concent 33.1 G/DL (32.0-36.0) Red Cell Distribution Width 18.0 % (11.6-14.8) H Platelet Count 305 K/UL (150-450) Mean Platelet Volume 6.2 FL (6.5-10.1) L Neutrophils (%) (Auto) % (45.0-75.0) Lymphocytes (%) (Auto) % (20.0-45.0) Monocytes (%) (Auto) % (1.0-10.0) Eosinophils (%) (Auto) % (0.0-3.0) Basophils (%) (Auto) % (0.0-2.0) Chemistry Test 09/18/16 00:00 Sodium Level 138 mEQ/L (135-145) Potassium Level 4.7 mEQ/L (3.4-4.9) Chloride Level 94 mEQ/L (98-107) L Carbon Dioxide Level 25 mEQ/L (20-30) Anion Gap 19 (5-15) H Blood Urea Nitrogen 42 mg/dL (7-23) H Creatinine 1.1 mg/dL (0.5-0.9) H Estimat Glomerular Filtration Rate mL/min (>60) Glucose Level 187 mg/dL (74-106) H Calcium Level 10.3 mg/dL (8.6-10.2) H Total Bilirubin 0.5 mg/dL (0.0-1.2) Aspartate Amino Transf (AST/SGOT) 34 U/L (5-40) Alanine Aminotransferase (ALT/SGPT) 16 U/L (3-33) Alkaline Phosphatase 119 U/L (35-104) H Total Protein 8.1 g/dL (6.6-8.7) Albumin 4.4 g/dL (3.5-5.2) Globulin 3.7 g/dL Albumin/Globulin Ratio 1.1 (1.0-2.7) Lipase 274 U/L (< 60) H Risk Assessment & Plan Assessment: ASA 3E Plan: GA, Glidescope, BIS Pre-Antibiotics Dru Grams Ancef IV Given Within 1 Hr of Incision: Yes Time Given: 17:21 Chino Reeves MD Sep 18, 2016 16:40
--- NOTE | 2016-09-18 16:44 | Immediate Post-Op Evaluation ---
Immediate Post-Op Evalulation Immediate Post-Op Evalulation Procedure: Repair Femoral Hernia, Laparotomy, Small Bowel Resection Date of Evaluation: Sep 18, 2016 Time of Evaluation: 19:34 IV Fluids: 1000 LR Blood Products: 0 Estimated Blood Loss: 50 Urinary Output: 150 Blood Pressure Systolic: 137 Blood Pressure Diastolic: 94 Pulse Rate: 96 Respiratory Rate: 16 O2 Sat by Pulse Oximetry: 99 Temperature (Fahrenheit): 97.4 Pain Score (1-10): 2 Nausea: No Vomiting: No Complications 0 Patient Status: awake, reacts, patent, extubated, none Hydration Status: adequate Dru Grams Ancef IV Given Within 1 Hr of Incision: Yes Time Given: 17:21 Chino Reeves MD Sep 18, 2016 16:44
[2016-09-18] MEDS ORDERED: Labetalol 5mg/ml 20ml vial IV PRN (16:45)
[2016-09-18] MEDS ORDERED: Hydromorphone 0.5mg/0.5ml inj IVP PRN (16:45)
[2016-09-18] MEDS ORDERED: Ketorolac 30mg Inj IV PRN (16:45)
[2016-09-18] MEDS ORDERED: Oxycodone/Acetaminophen 5-325 ORAL PRN (16:45)
[2016-09-18] MEDS ORDERED: fentaNYL 100 mcg/2 mL IV PRN (16:45)
[2016-09-18] MEDS ORDERED: Norco 5mg/325mg tab ORAL PRN (16:45)
[2016-09-18] MEDS ORDERED: Metoclopramide 10mg/2ml Inj IVP PRN (16:45)
[2016-09-18] MEDS ORDERED: DiphenhydrAMINE 50mg/ml Inj IVP PRN (16:45)
[2016-09-18] MEDS ORDERED: Meperidine 25mg/ml Inj IV PRN (16:45)
[2016-09-18] MEDS ORDERED: Midazolam 2mg/2ml Inj IVP PRN (16:45)
[2016-09-18] MEDS ORDERED: Atropine Inj 1mg/10ml Syr IV PRN (16:45)
[2016-09-18] MEDS ORDERED: LORazepam Inj 2mg/ml 1ml IV PRN (16:45)
[2016-09-18] MEDS ORDERED: Ketorolac 60mg Inj IV PRN (16:45)
[2016-09-18] MEDS ORDERED: Norco 7.5mg/325mg tab ORAL PRN (16:45)
--- NOTE | 2016-09-18 16:54 | Consultation ---
Consult Note Consult Note Surgery called for concern for SBO with hernia has right inguinal hernia with strangulation of bowel CT confirms She reports symptoms since yesterday - vomiting, abdominal pain Last dose of coumadin last night she's okay with blood transfusion if necessary vital stable [facility] strangualted - very tender abdomen benign, non tender in abdomen labs reviewed Assessment/Plan CT imaging personally reviewed concern for bowel compromise Plan: Emergent Right inguinal hernia repair possible exploratory laparotomy discussed with patient. Advised risk of bowel resection, non mesh placement, recurrent hernia, need for ex lap, , blood transfusions, bowel injury. Agrees to proceed AWA LAWS Sep 18, 2016 16:54
[2016-09-18] MEDS ORDERED: NS Irrig 1000ml ONE (17:00)
[2016-09-18] MEDS ORDERED: Lidocaine 1% MPF 10mg/ml 5ml ONE (17:00)
[2016-09-18] MEDS ORDERED: Midazolam 2mg/2ml Inj ONE (17:00)
[2016-09-18] MEDS ORDERED: Zemuron 50mg/5ml Inj IV ONE (17:00)
[2016-09-18] MEDS ORDERED: Propofol 10mg/ml 20ml IV ONE (17:00)
[2016-09-18] MEDS ORDERED: Metoprolol 5mg/5ml Inj ONE (17:00)
[2016-09-18] MEDS ORDERED: Dexamethasone 4mg/ml vial ONE (17:00)
[2016-09-18] MEDS ORDERED: Glycopyrrolate 0.2mg/ml 1ml Vial ONE (17:00)
[2016-09-18] MEDS ORDERED: LR 1000ml ONE (17:00)
[2016-09-18] MEDS ORDERED: Neostigmine 1mg/ml 10ml Inj ONE (17:00)
[2016-09-18] MEDS ORDERED: Bacitracin 50000 Units Vial ONE (17:23)
[2016-09-18] MEDS ORDERED: Bupivacaine 0.5% Inj 30 ml vial INJ ONE (17:23)
[2016-09-18] MEDS ORDERED: Bupivacaine w/Epi 0.25% 30ml Vial INJ ONE (17:25)
[2016-09-18] MEDS ORDERED: Docusate 100mg cap ORAL SCH (18:00)
--- NOTE | 2016-09-18 19:11 | Brief Operative Note ---
Immediate Post Operative Note Operative Note Chief Complaint: Small Bowel Obstruction, Abdominal Pain Pre-op Diagnosis: Right Inguinal Hernia with Small Bowel Obstruction and Strangulated Bowel Procedure: (1) Right Femoral Hernia Repair with Mesh (2) Exploratory Laparotomy with Small Bowel Resection and a [id number] stapled anastomosis Post-op Diagnosis: Strangulated Right Femoral Hernia with Compromised Small Bowel Surgeon: Awa Brooks Anesthesiologist: Chino Reeves Anesthesia: general Specimen: yes - Small Bowel Resection Complications: none Condition: stable Fluids: Crystalloid Estimated Blood Loss: minimal - <25 ml Drains: none Implant(s) used?: Yes - Bard Prolene 3 x 6 mesh AWA BROOKS Sep 18, 2016 19:11
[2016-09-18] MEDS ORDERED: Morphine Sulfate 2mg/ml Inj IVP PRN ×4 (19:15→23:15)
--- NOTE | 2016-09-18 20:38 | History & Physical ---
History and Physical History & Physicial Dictated for Int Med-Dr Real no. [id number]. NIKKI TAYLOR Sep 18, 2016 20:38
[2016-09-18] MEDS ORDERED: Enoxaparin 30mg Inj SUBQ SCH (21:00)
[2016-09-18] MEDS ORDERED: Carvedilol 6.25mg Tab ORAL SCH (21:00)
[2016-09-18] MEDS ORDERED: LR 1000ml 1,000 ML IV SCH ×2 (21:00→22:00)
[2016-09-18 21:28] LABS: MEAN CORPUSCULAR HEMOGLOBIN 28.2 PG (27.0-31.0); MEAN CORPUSCULAR HGB CONC 31.2 G/DL (32.0-36.0); MEAN CORPUSCULAR VOLUME 91 FL (80-99); MEAN PLATELET VOLUME 5.8 FL (6.5-10.1); PLATELET COUNT 266 K/UL (150-450); RED CELL DISTRIBUTION WIDTH 19.7 % (11.6-14.8); WHITE BLOOD COUNT 9.9 K/UL (4.8-10.8)
[2016-09-18 21:38] LABS: ANION GAP 16 (5-15); CALCIUM 8.1 mg/dL (8.6-10.2); CARBON DIOXIDE 23 mEQ/L (20-30); CHLORIDE 106 mEQ/L (98-107); HEMOLYSIS 2; POTASSIUM 4.1 mEQ/L (3.4-4.9); SODIUM 145 mEQ/L (135-145)
[2016-09-18 22:08] LABS: ANISOCYTOSIS 1+; HYPOCHROMASIA 1+; LYMPHOCYTES % (MANUAL) 6 % (20-45); NEUTROPHILS % (MANUAL) 89 % (45-75); TOTAL CELLS COUNTED 100
[2016-09-18 22:09] LABS: BAND NEUTROPHILS % (MANUAL) 0 % (0-8); BASOPHILS % (MANUAL) 0 % (0-2); EOSINOPHILS % (MANUAL) 0 % (0-3); PLATELET ESTIMATE ADEQUATE; PLATELET MORPHOLOGY NORMAL
[2016-09-18] MEDS ORDERED: cefOXitin Sod 1 GM in D5W 50 ML IV SCH (23:30)
[2016-09-19] VITALS: BP 141/83
[2016-09-19] MEDS ORDERED: cefOXitin 1gm Inj ONE ×2 (00:15→05:50)
[2016-09-19] MEDS: cefOXitin Sod 1 GM in D5W 50 ML IV SCH ×3 (00:22→12:21)
--- NOTE | 2016-09-19 02:17 | History and Physical Report ---
DATE OF ADMISSION: 09/18/2016 CHIEF COMPLAINT: The patient is a 70-year-old female, who presents with chief complaint of abdominal pain. HISTORY OF PRESENT ILLNESS: The patient states that she began to experience lower abdominal pain on 09/17/2016. It was located in the bilateral lower quadrants. It was intermittent. The patient states that she had two bowel movements. The patient then went to her dentist. The patient states that the pain worsened. The patient denies constipation or diarrhea. The patient denies bright red blood per rectum. The patient presented to [facility]. An initial CT of the abdomen showed small bowel obstruction. The patient is admitted for small bowel obstruction. PAST MEDICAL HISTORY: Significant for: 1. Hypertension. 2. Diabetes type 2. 3. Atrial fibrillation. 4. History of cerebrovascular accident in . PAST SURGICAL HISTORY: Significant for: 1. Hemorrhoidectomy in August 2016. 2. Cataract surgery bilaterally. 3. Mechanical valve replacement in 1985 and in 1995. CURRENT MEDICATIONS: 1. Fosamax 70 mg one tablet p.o. 2. Atorvastatin 40 mg one tablet p.o. at bedtime. 3. Calcium plus D, one tablet p.o. twice daily. 4. Carvedilol 6.25 mg one tablet p.o. twice daily. 5. Digoxin 0.125 mg one tablet p.o. daily. 6. Lovenox 40 mg subcutaneously twice daily. 7. Pepcid 20 mg one tablet p.o. daily. 8. Iron sulfate 325 mg one tablet p.o. daily. 9. Lasix 40 mg one tablet p.o. twice daily. 10. Acular ophthalmic drops one drop to both eyes four times a day. 11. Losartan 25 mg one tablet p.o. daily. 12. Metformin 850 mg one tablet p.o. three times daily. 13. Prednisolone Forte one drop to the right eye four times daily. 14. Tramadol 50 mg p.o. q.6 hours p.r.n. 15. Coumadin 4 mg p.o. daily. ALLERGIES: No known drug allergies. SOCIAL HISTORY: The patient lives with her niece who is primary caregiver. The patient denies tobacco or alcohol use. REVIEW OF SYSTEMS: Constitutional: The patient denies weight loss or weight gain. The patient denies fevers or chills. HEENT: The patient denies ear or throat pain. Cardiovascular: The patient denies palpitations or chest pain. Chest: The patient denies wheeze or shortness of breath. Abdomen: The patient denies nausea, vomiting, diarrhea, or constipation. THE PATIENT COMPLAINS OF LOWER QUADRANT PAIN ABOVE. THE PATIENT DENIES NAUSEA, VOMITING, OR CONSTIPATION. GENITOURINARY: The patient denies dysuria or increased frequency of urination. Neuromuscular: The patient denies seizures or generalized weakness. PHYSICAL EXAMINATION: VITAL SIGNS: Temperature is 97.5 degrees, pulse 90, blood pressure 136/55, and respiratory rate 20. GENERALLY: The patient is a well-developed and well-nourished, thin- appearing female in no apparent distress. HEENT: Eyes, pupils are equal and responsive to light and accommodation. Extraocular movements are intact. NECK: Supple. No lymphadenopathy. CHEST: Lungs are clear to auscultation bilaterally without wheezes or rales. CARDIOVASCULAR: Regular rhythm and rate. S1 and S2. No murmurs, rubs, or gallops. ABDOMEN: Soft. Distended with positive bowel sounds. ABDOMEN: Soft and distended with decreased bowel sounds. There is tenderness to palpation in bilateral lower quadrants. There is voluntary guarding noted. There is no rebound or guarding. EXTREMITIES: No clubbing, cyanosis, or edema. NEUROLOGIC: Cranial nerves II through XII are grossly intact without focal deficits. Motor strength is 5/5 bilaterally. Deep tendon reflexes are 2+ plantar. LABORATORY STUDIES: WBC is 8.7, hemoglobin 10.8, hematocrit 32.8, and platelets 305,000. Sodium is 139, potassium 4.7, chloride 94, CO2 25, BUN 42, creatinine 1.1, and glucose 187. A CT scan of the abdomen revealed dilated loops of small bowel consistent with small bowel obstruction. There appears to be a strangulation of the small bowel and the right inguinal hernia. ASSESSMENT: This is a 70-year-old female with: 1. Small bowel obstruction. 2. Right inguinal hernia, strangulated. 3. Hypertension. 4. Diabetes type 2. 5. Atrial fibrillation. 6. History of cerebrovascular disease. 7. Osteoporosis. 8. Hypercholesterolemia. TREATMENT: 1. Small bowel obstruction/right inguinal hernia. A General Surgery consultation will be obtained with . We will follow recommendation of Surgery. The patient may require surgery emergently. The patient is currently NPO. 2. Hypertension. The patient is currently NPO. We will restart carvedilol when the patient is tolerating p.o. 3. Diabetes type 2. Regular insulin sliding scale has been instituted. 4. Atrial fibrillation as above. The patient is currently NPO. Digoxin will be given intravenously, while the patient is NPO. 5. Cerebrovascular disease. 6. Osteoporosis. Fosamax will be restarted when the patient is tolerating p.o. 7. Hypercholesterolemia. Atorvastatin will be restarted when the patient is tolerating p.o. Sher Hansen M.D. DR: Mindy JOB#: [id number] CC:
[2016-09-19 04:00] VITALS: BP 150/69
--- NOTE | 2016-09-19 04:48 | Operative Note - Dictated ---
DATE OF OPERATION: 09/18/2016 PREOPERATIVE DIAGNOSIS: Strangulated right groin hernia with small bowel obstruction. POSTOPERATIVE DIAGNOSIS: Strangulated right femoral hernia with small intestinal bowel compromise. PROCEDURES: 1. Right groin femoral hernia repair with mesh. 2. Exploratory laparotomy. 3. Small bowel resection with [id number] stapled anastomosis. SURGEON: Gael Brooks M.D. EDUCATIONAL DIRECTOR: None. ANESTHESIOLOGIST: Chino Reeves M.D. FLUIDS: Crystalloid. BLOOD LOSS: Minimal, less than 25 mL. COMPLICATIONS: None apparent. CONDITION: Condition of the patient stable to the PACU, extubated. INDICATIONS FOR THE PROCEDURE: This is a 70-year-old female who presented with 24 hours abdominal pain to the ED. Today, I was notified at late afternoon approximately after 4 o'clock on her admission and we are able to get her to the OR just after 5. Immediately on exam, it was obvious that she had strangulated bowel, she had symptoms for small bowel obstruction on CT that was performed to prior consultation demonstrated bowel thickening and concern for possible bowel compromise. Risks and benefits were discussed with the patient preoperatively. These risks were included, but not limited to possible anastomotic leaks, need for possible bowel resection, need for a laparotomy, recurrent hernias, inability to place a mesh to repair the hernia appropriately if there is contamination of the groin, inability to extubate, prolonged and operative stays, wound dehiscence, fascial dehiscence, need of multiple returns back to the operating room, bleeding, need for blood transfusion, sepsis, and other possible adverse sequelae. She understood these risks and wished to proceed. DESCRIPTION OF PROCEDURE: The patient was brought to the operating room after informed consent was given by the patient herself emergently just placed supine on the operating room table. Anesthetic control was achieved. The surgical briefing per standard operating room protocol was performed, confirmed, and then we proceeded. A Quispe catheter was placed. The abdomen was prepped and draped in the usual sterile fashion. I turned my attention to the right groin first. I did a large incision for a groin exploration. The skin was opened. Eve's fascia was opened immediately. There was no evidence of bowel that looks black and gangrenous. The bowel was completely freed circumferentially and was found to be coming through a femoral defect. The femoral defect was widened and at this point, I attempted to see that I could exteriorate the bowel through the femoral defect, however, I found it difficult. Furthermore, I wanted to do a proper repair with mesh, and so I did not want to expose the field to bowel contents or risk mesh infection. So the bowel was returned to the abdomen. The area was irrigated with antibiotic ointment. The external oblique aponeurosis was incised, taken down, and a mesh was affixed down to the pubic tubercle over and through down Mitchell's ligament obliterating the femoral canal and up on the lowest part of the inguinal ligament shelf. The cephalad portion of the mesh was affixed to the conjoint tendon and this was all done with a Prolene mesh. Again, antibiotic irrigation was performed. The mesh was found to be lying flat. There is note of hernial defect, femoral canal defect again was completely obliterated and the mesh secured in the proper location. The external oblique was closed over it. The skin was closed with multiple layers with 4-0 Monocryl for the final layer, running. A sterile dressing was applied and Tegaderm was placed to protect the wound. At this point, I turned my attention to the abdomen. I wished to see by reaching the bowel to the abdomen and having to either allow us doing a groin repair would it demonstrate actual viability. A minilaparotomy incision was done around the umbilicus. The fascia was opened, and the abdomen was entered. There was noted to be bowel dilatation. The bowel was completely exteriorized and ran from the ligament of Treitz all the way down to the terminal ileum. There was found to be the the site of bowel in question, and the rest of the bowel is completely viable, peristaltic, pink, and with no evidence of the bowel compromise other than one site. The bowel was pinking up; however, there were multiple little black spots on it and when it was palpated, there was no evidence of peristalsis. Due to lack of peristalsis and there was immediate peristalsis in all the bowel surrounding it, I opted then to do a small bowel resection using a INA stapler with a 3.5-mm desk load of staple. A [id number] stapled anastomosis was performed, and the resected site was passed off the field as specimen. While doing the anastomosis, the anastomosis was checked for intraluminal bleeding, none was noted, and the mesenteric defect was closed using a 3-0 Vicryl. The bowel was returned to the abdomen, taking care to ensure that there was no volvulus or malrotation of the mesenteric vessels; none was noted. I did this carefully making sure that it laid naturally, so there would be no twisting or kinking of the bowel. The fascia was then closed using 0 PDS, and the skin was closed using 4-0 Monocryl, and Steri-Strips and a Tegaderm were applied. Additional quantity of anesthetic was injected and the procedure was completed. The patient at this point is stable. She is going to be extubated and planned to go to the PACU in stable condition. Blood loss is minimal throughout the case with less than 25 mL blood loss. No intraoperative complications noted. Sponge, instruments, and needle counts were reported correct before final closure. Gael Brooks M.D. DR: YANE JOB#: [id number] CC: Kobi Real M.D.; Fax#: [phone]
[2016-09-19] MEDS: NovoLOG Insulin Flexpen SUBQ SCH ×4 (06:30→21:51)
--- NOTE | 2016-09-19 06:46 | General Progress Note ---
Progress Note Progress Note Surgery Reports pain well controlled. Denies nausea/vomitting/fevers/chills AVSS NAD unlabored abdomen soft, incisional TTP wounds dressed hedrick clear light urine urine output adequate labs reviewed a/p s/p emergent repair strangulated femoral hernia with compromised bowel, mini exlap, small bowel resection (1) advance diet to diabetic - start with clears now, if tolerates nursing advised to advance as tolerated (2) hedrick and NGT removed by me personally this morning (3) Diabetic and anti-coagulation management by primary team - ok to restart anti-coagulation now - patient with mechanical heart valve. Great care taken during surgery to minimize post operative bleeding risk from anti-coagulation. Benefits outweigh the risks (4) once tolerates diet, ambulating and voiding, stable for discharge I will be away this weekend, Dr. Marisela Juarez will be covering for me. I will have my phone on for any concerns if need be AWA LAWS Sep 19, 2016 06:46
[2016-09-19 08:00] VITALS: BP 139/83
[2016-09-19 08:24] LABS: MEAN CORPUSCULAR HEMOGLOBIN 27.9 PG (27.0-31.0); MEAN CORPUSCULAR HGB CONC 31.4 G/DL (32.0-36.0); MEAN CORPUSCULAR VOLUME 89 FL (80-99); MEAN PLATELET VOLUME 6.5 FL (6.5-10.1); PLATELET COUNT 279 K/UL (150-450); RED BLOOD COUNT 3.42 M/UL (4.20-5.40); RED CELL DISTRIBUTION WIDTH 20.1 % (11.6-14.8); WHITE BLOOD COUNT 11.1 K/UL (4.8-10.8)
[2016-09-19 08:32] LABS: ANION GAP 16 (5-15); CALCIUM 8.4 mg/dL (8.6-10.2); CARBON DIOXIDE 24 mEQ/L (20-30); CHLORIDE 108 mEQ/L (98-107); CREATININE 1.1 mg/dL (0.5-0.9); HEMOLYSIS 0; POTASSIUM 4.3 mEQ/L (3.4-4.9); SODIUM 148 mEQ/L (135-145)
[2016-09-19] MEDS: Digoxin 0.125mg tab ORAL SCH (08:33)
[2016-09-19] MEDS: Docusate 100mg cap ORAL SCH ×2 (08:34→17:34)
[2016-09-19] MEDS: Enoxaparin 30mg Inj SUBQ SCH ×2 (08:35→21:50)
[2016-09-19 08:49] LABS: BAND NEUTROPHILS % (MANUAL) 1 % (0-8); BASOPHILS % (MANUAL) 0 % (0-2); EOSINOPHILS % (MANUAL) 0 % (0-3); HYPOCHROMASIA 2+; LYMPHOCYTES % (MANUAL) 7 % (20-45); NEUTROPHILS % (MANUAL) 86 % (45-75); PLATELET ESTIMATE ADEQUATE; TOTAL CELLS COUNTED 100
[2016-09-19 08:50] LABS: ANISOCYTOSIS 2+; PLATELET MORPHOLOGY NORMAL
--- NOTE | 2016-09-19 08:59 | Cardiac Electrophysiology PN ---
Subjective Subjective [id number] and DW RN. Objective Last 24 Hour Vital Signs Date Time Temp Pulse Resp B/P Pulse Ox O2 Delivery O2 Flow Rate FiO2 09/19/16 08:33 100 09/19/16 08:33 100 139/63 09/19/16 04:00 98.2 96 16 150/69 99 Room Air 09/19/16 04:00 103 09/19/16 00:00 97 09/19/16 00:00 97.0 80 18 141/83 93 Room Air 09/18/16 23:34 Nasal Cannula 3.0 32 09/18/16 23:34 97 Nasal Cannula 3.0 32 09/18/16 21:53 62 18 146/90 Nasal Cannula 4.0 97 09/18/16 20:36 98.0 09/18/16 20:32 98.0 96 20 134/75 100 Nasal Cannula 3.0 09/18/16 20:25 94 21 109/61 100 Nasal Cannula 3.0 09/18/16 20:15 138 19 124/45 100 Nasal Cannula 3.0 09/18/16 20:05 132 18 127/62 99 Simple Mask 6.0 09/18/16 19:55 109 22 163/69 99 Simple Mask 6.0 09/18/16 19:50 100 29 158/77 99 Simple Mask 6.0 09/18/16 19:40 96 28 151/69 98 Simple Mask 6.0 09/18/16 19:30 97 26 152/76 96 Simple Mask 6.0 09/18/16 19:29 96 16 99 09/18/16 19:24 101 22 137/94 96 Simple Mask 6.0 09/18/16 19:23 97.4 150 18 138/97 98 Simple Mask 6.0 09/18/16 16:00 97.2 78 14 134/57 97 Room Air 09/18/16 12:00 97.5 81 19 145/84 99 Room Air 09/18/16 10:52 97.5 90 20 136/55 98 Room Air Intake and Output 09/18/16 09/19/16 19:00 07:00 Intake Total 2228 ml Output Total 320 ml Balance 1908 ml Intake IV Total 2228 ml Output Urine Total 270 ml Gastric Drainage Total 0 ml Estimated Blood Loss 50 ml # Voids 2 Laboratory Tests Test 09/18/16 21:10 09/19/16 07:40 White Blood Count 9.9 K/UL (4.8-10.8) 11.1 K/UL (4.8-10.8) H Red Blood Count 3.10 M/UL (4.20-5.40) L 3.42 M/UL (4.20-5.40) L Hemoglobin 8.7 G/DL (12.0-16.0) L 9.6 G/DL (12.0-16.0) L Hematocrit 28.1 % (37.0-47.0) L 30.4 % (37.0-47.0) L Mean Corpuscular Volume 91 FL (80-99) 89 FL (80-99) Mean Corpuscular Hemoglobin 28.2 PG (27.0-31.0) 27.9 PG (27.0-31.0) Mean Corpuscular Hemoglobin Concent 31.2 G/DL (32.0-36.0) L 31.4 G/DL (32.0-36.0) L Red Cell Distribution Width 19.7 % (11.6-14.8) H 20.1 % (11.6-14.8) H Platelet Count 266 K/UL (150-450) 279 K/UL (150-450) Mean Platelet Volume 5.8 FL (6.5-10.1) L 6.5 FL (6.5-10.1) Neutrophils (%) (Auto) % (45.0-75.0) % (45.0-75.0) Lymphocytes (%) (Auto) % (20.0-45.0) % (20.0-45.0) Monocytes (%) (Auto) % (1.0-10.0) % (1.0-10.0) Eosinophils (%) (Auto) % (0.0-3.0) % (0.0-3.0) Basophils (%) (Auto) % (0.0-2.0) % (0.0-2.0) Differential Total Cells Counted 100 100 Neutrophils % (Manual) 89 % (45-75) H 86 % (45-75) H Lymphocytes % (Manual) 6 % (20-45) L 7 % (20-45) L Monocytes % (Manual) 5 % (1-10) 6 % (1-10) Eosinophils % (Manual) 0 % (0-3) 0 % (0-3) Basophils % (Manual) 0 % (0-2) 0 % (0-2) Band Neutrophils 0 % (0-8) 1 % (0-8) Platelet Estimate Adequate Adequate Platelet Morphology Normal Normal Hypochromasia 1+ 2+ Anisocytosis 1+ 2+ Sodium Level 145 mEQ/L (135-145) 148 mEQ/L (135-145) H Potassium Level 4.1 mEQ/L (3.4-4.9) 4.3 mEQ/L (3.4-4.9) Chloride Level 106 mEQ/L (98-107) 108 mEQ/L (98-107) H Carbon Dioxide Level 23 mEQ/L (20-30) 24 mEQ/L (20-30) Anion Gap 16 (5-15) H 16 (5-15) H Blood Urea Nitrogen 29 mg/dL (7-23) H 27 mg/dL (7-23) H Creatinine 1.0 mg/dL (0.5-0.9) H 1.1 mg/dL (0.5-0.9) H Estimat Glomerular Filtration Rate mL/min (>60) mL/min (>60) Glucose Level 161 mg/dL (74-106) H 159 mg/dL (74-106) H Calcium Level 8.1 mg/dL (8.6-10.2) #L 8.4 mg/dL (8.6-10.2) L Microbiology Date/Time Source Procedure Growth Status 09/18/16 05:45 Urine,Clean Catch Urine Culture - Preliminary Gram Negative Bacillus 1 Resulted AUTUMN BERRY Sep 19, 2016 08:59
[2016-09-19] MEDS ORDERED: Digoxin 0.125mg tab ORAL SCH (09:00)
[2016-09-19] MEDS ORDERED: Carvedilol 6.25mg Tab ORAL SCH (09:00)
[2016-09-19] MEDS: Carvedilol 6.25mg Tab ORAL SCH ×2 (10:25→21:51)
[2016-09-19 12:00] VITALS: BP 124/59
--- NOTE | 2016-09-19 12:15 | Diagnostic Imaging Report ---
Indication: Abdominal pain Comparison: None Single view of the abdomen obtained Multiple mild dilated loops of small bowel noted the abdomen. There is a ovoid density in the right upper quadrant which could be gallbladder or part of the kidney. There is contrast within a slightly distended urinary bladder. Impression: Mild generalized distention of small bowel. This may be due to ileus. Obstruction is not excluded.
--- NOTE | 2016-09-19 13:01 | Consultation ---
History of Present Illness General Date patient seen: Sep 19, 2016 Chief Complaint: Abdominal Pain Referring physician: Dr Real Reason for Consultation: inpatient management Present Illness HPI 70 year female with hx of DM, atrial fibrillation on digoxin presented to ER on 09/08 with lower abdominal pain that began earlier that day. she underwent laparatomy showing strangulated hernia, Post-operatively she was transferred to telemetry for further management. Currently she is sitting up in the bed eating his liquid diet without any complains Allergies: Coded Allergies: No Known Allergies (Unverified , 09/17/16) Medication History Scheduled Alendronate Sodium* (Fosamax*), 70 MG ORAL ONCE A WEEK, (Reported) Atorvastatin Calcium* (Atorvastatin Calcium*), 40 MG ORAL BEDTIME, (Reported) Calcium Carbonate/Vitamin D3 (Calcium 500 + Vit D 200 Tablet), 1 EACH PO BID, ( Reported) Carvedilol* (Carvedilol*), 6.25 MG ORAL EVERY 12 HOURS, (Reported) Digoxin* (Digoxin*), 125 MCG ORAL DAILY, (Reported) Docusate Sodium* (Colace*), 200 MG ORAL TWICE A DAY, (Reported) Enoxaparin* (Lovenox*), 40 MG SUBQ BID, (Reported) Famotidine (Famotidine), 20 MG ORAL DAILY, (Reported) Ferrous Sulfate* (Ferrous Sulfate*), 325 MG ORAL DAILY, (Reported) Furosemide* (Lasix*), 40 MG ORAL TWICE A DAY, (Reported) Ketorolac Tromethamine (Acular), 1 DROP BOTH EYES FOUR TIMES A DAY, (Reported) Losartan Potassium* (Losartan Potassium*), 25 MG ORAL DAILY, (Reported) Metformin Hcl* (Metformin Hcl*), 850 MG ORAL TID, (Reported) Metformin Hcl* (Metformin Hcl*), 1,000 MG ORAL BID, (Reported) Ofloxacin (Ofloxacin), 5 ML OTIC QID, (Reported) Prednisolone Acetate (Pred Forte), 1 DROP RIGHT EYE QID, (Reported) Warfarin Sod* (Warfarin Sod*), 4 MG ORAL DAILY, (Reported) Scheduled PRN Tramadol Hcl* (Ultram*), 50 MG ORAL Q6H PRN for For Pain, (Reported) Patient History Healthcare decision maker Resuscitation status Advanced Directive on File Past Medical/Surgical History Past Medical/Surgical History: (1) Diabetes mellitus (2) Atrial fibrillation (3) CAD (coronary artery disease) (4) HTN (hypertension) Review of Systems All Other Systems: negative except mentioned in HPI Physical Exam General Appearance: cachetic Lines, tubes and drains: peripheral, central line HEENT: normocephalic, atraumatic Neck: non-tender, normal alignment Respiratory/Chest: chest wall non-tender, lungs clear Cardiovascular/Chest: normal peripheral pulses, normal rate, regular rhythm Abdomen: normal bowel sounds, non tender Genitourinary/Rectal: normal genital exam Extremities: non-tender Skin Exam: normal pigmentation Last 24 Hour Vital Signs Date Time Temp Pulse Resp B/P Pulse Ox O2 Delivery O2 Flow Rate FiO2 09/19/16 10:25 97 138/65 09/19/16 08:33 100 09/19/16 08:33 100 139/63 09/19/16 08:00 97.7 100 17 139/83 95 Room Air 09/19/16 08:00 82 09/19/16 04:00 98.2 96 16 150/69 99 Room Air 09/19/16 04:00 103 09/19/16 00:00 97 09/19/16 00:00 97.0 80 18 141/83 93 Room Air 09/18/16 23:34 Nasal Cannula 3.0 32 09/18/16 23:34 97 Nasal Cannula 3.0 32 09/18/16 21:53 62 18 146/90 Nasal Cannula 4.0 97 09/18/16 20:36 98.0 09/18/16 20:32 98.0 96 20 134/75 100 Nasal Cannula 3.0 09/18/16 20:25 94 21 109/61 100 Nasal Cannula 3.0 09/18/16 20:15 138 19 124/45 100 Nasal Cannula 3.0 09/18/16 20:05 132 18 127/62 99 Simple Mask 6.0 09/18/16 19:55 109 22 163/69 99 Simple Mask 6.0 09/18/16 19:50 100 29 158/77 99 Simple Mask 6.0 09/18/16 19:40 96 28 151/69 98 Simple Mask 6.0 09/18/16 19:30 97 26 152/76 96 Simple Mask 6.0 09/18/16 19:29 96 16 99 09/18/16 19:24 101 22 137/94 96 Simple Mask 6.0 09/18/16 19:23 97.4 150 18 138/97 98 Simple Mask 6.0 09/18/16 16:00 97.2 78 14 134/57 97 Room Air Intake and Output 09/18/16 09/19/16 19:00 07:00 Intake Total 2228 ml Output Total 320 ml Balance 1908 ml Intake IV Total 2228 ml Output Urine Total 270 ml Gastric Drainage Total 0 ml Estimated Blood Loss 50 ml # Voids 2 Laboratory Tests Test 09/18/16 21:10 09/19/16 07:40 White Blood Count 9.9 K/UL (4.8-10.8) 11.1 K/UL (4.8-10.8) H Red Blood Count 3.10 M/UL (4.20-5.40) L 3.42 M/UL (4.20-5.40) L Hemoglobin 8.7 G/DL (12.0-16.0) L 9.6 G/DL (12.0-16.0) L Hematocrit 28.1 % (37.0-47.0) L 30.4 % (37.0-47.0) L Mean Corpuscular Volume 91 FL (80-99) 89 FL (80-99) Mean Corpuscular Hemoglobin 28.2 PG (27.0-31.0) 27.9 PG (27.0-31.0) Mean Corpuscular Hemoglobin Concent 31.2 G/DL (32.0-36.0) L 31.4 G/DL (32.0-36.0) L Red Cell Distribution Width 19.7 % (11.6-14.8) H 20.1 % (11.6-14.8) H Platelet Count 266 K/UL (150-450) 279 K/UL (150-450) Mean Platelet Volume 5.8 FL (6.5-10.1) L 6.5 FL (6.5-10.1) Neutrophils (%) (Auto) % (45.0-75.0) % (45.0-75.0) Lymphocytes (%) (Auto) % (20.0-45.0) % (20.0-45.0) Monocytes (%) (Auto) % (1.0-10.0) % (1.0-10.0) Eosinophils (%) (Auto) % (0.0-3.0) % (0.0-3.0) Basophils (%) (Auto) % (0.0-2.0) % (0.0-2.0) Differential Total Cells Counted 100 100 Neutrophils % (Manual) 89 % (45-75) H 86 % (45-75) H Lymphocytes % (Manual) 6 % (20-45) L 7 % (20-45) L Monocytes % (Manual) 5 % (1-10) 6 % (1-10) Eosinophils % (Manual) 0 % (0-3) 0 % (0-3) Basophils % (Manual) 0 % (0-2) 0 % (0-2) Band Neutrophils 0 % (0-8) 1 % (0-8) Platelet Estimate Adequate Adequate Platelet Morphology Normal Normal Hypochromasia 1+ 2+ Anisocytosis 1+ 2+ Sodium Level 145 mEQ/L (135-145) 148 mEQ/L (135-145) H Potassium Level 4.1 mEQ/L (3.4-4.9) 4.3 mEQ/L (3.4-4.9) Chloride Level 106 mEQ/L (98-107) 108 mEQ/L (98-107) H Carbon Dioxide Level 23 mEQ/L (20-30) 24 mEQ/L (20-30) Anion Gap 16 (5-15) H 16 (5-15) H Blood Urea Nitrogen 29 mg/dL (7-23) H 27 mg/dL (7-23) H Creatinine 1.0 mg/dL (0.5-0.9) H 1.1 mg/dL (0.5-0.9) H Estimat Glomerular Filtration Rate mL/min (>60) mL/min (>60) Glucose Level 161 mg/dL (74-106) H 159 mg/dL (74-106) H Calcium Level 8.1 mg/dL (8.6-10.2) #L 8.4 mg/dL (8.6-10.2) L Height (Feet): 5 Height (Inches): 2.00 Weight (Pounds): 105 Medications Current Medications Medications (Trade) Dose Ordered Sig/Grisel Route PRN Reason Start Time Stop Time Status Last Admin Dose Admin Carvedilol (Coreg) 12.5 mg EVERY 12 HOURS ORAL 09/19/16 09:00 10/19/16 08:59 09/19/16 10:25 Dextrose (Dextrose 50%) STAT PRN IV Hypoglycemia 09/18/16 21:45 10/18/16 21:44 Digoxin (Lanoxin) 0.125 mg DAILY ORAL 09/19/16 09:00 10/19/16 08:59 09/19/16 08:33 Docusate Sodium (Colace) 200 mg TWICE A DAY ORAL 09/19/16 09:00 10/19/16 08:59 09/19/16 08:34 Enoxaparin Sodium (Lovenox) 30 mg Q12HR SUBQ 09/19/16 09:00 10/19/16 08:59 09/19/16 08:35 Insulin Aspart (NovoLOG) BEFORE MEALS AND HS SUBQ 09/19/16 06:30 10/19/16 06:29 09/19/16 12:20 Morphine Sulfate (Morphine Sulfate) 1 mg Q4H PRN IVP pain scale 1-3 09/18/16 23:15 09/25/16 23:14 Morphine Sulfate (Morphine Sulfate) 2 mg Q4H PRN IVP pain scale 4-6 09/18/16 23:15 09/25/16 23:14 Non-Formulary Medication (Non-Formulary Med) 1 ea QID BOTH EYES 09/19/16 09:00 10/19/16 08:59 UNV Non-Formulary Medication (Non-Formulary Med) 1 ea QID RIGHT EYE 09/19/16 09:00 10/19/16 08:59 UNV Non-Formulary Medication (Non-Formulary Med) 5 ea QID ORAL 09/19/16 09:00 10/19/16 08:59 UNV Ondansetron HCl (Zofran) 4 mg Q6H PRN IVP Nausea & Vomiting 09/19/16 01:15 10/19/16 01:14 Ranitidine HCl (Zantac) 150 mg DAILY ORAL 09/19/16 09:00 10/19/16 08:59 09/19/16 08:34 Sodium Chloride (Sodium Chloride 1000ml bag) 1,000 ml @ 75 mls/hr [id number] IV 09/18/16 22:00 10/18/16 21:59 09/19/16 12:21 Assessment/Plan Problem List: (1) Status post hernia repair ICD Codes: Z98.890 - Other specified postprocedural states; Z87.19 - Personal history of other diseases of the digestive system SNOMED: 91968257, 81391981, 75125805006389 (2) Atrial fibrillation ICD Codes: I48.91 - Unspecified atrial fibrillation SNOMED: 41818499 Qualifiers: Qualified Codes: I48.2 - Chronic atrial fibrillation (3) Hypoalbuminemia ICD Codes: E88.09 - Other disorders of plasma-protein metabolism, not elsewhere classified SNOMED: 885021951 (4) Abdominal pain ICD Codes: R10.9 - Unspecified abdominal pain SNOMED: 53080511 Qualifiers: Qualified Codes: R10.84 - Generalized abdominal pain (5) CAD (coronary artery disease) ICD Codes: I25.10 - Atherosclerotic heart disease of enterprise coronary artery without angina pectoris SNOMED: 21448473 (6) HTN (hypertension) ICD Codes: I10 - Essential (primary) hypertension SNOMED: 05918886 (7) Diabetes mellitus ICD Codes: E11.9 - Type 2 diabetes mellitus without complications SNOMED: 55948406 Qualifiers: (8) ATN (acute tubular necrosis) ICD Codes: N17.0 - Acute kidney failure with tubular necrosis SNOMED: 65055358 (9) Anemia ICD Codes: D64.9 - Anemia, unspecified SNOMED: 092901872 Assessment/Plan monitor in telemetry resume anticoagulation when ok with surgeon IV fluid sliding scale advance diet as tolerated wound care. cardio f/u renal f/u MAC FARIAS Sep 19, 2016 13:01
[2016-09-19 14:52] LABS: PATH BLOOD SMEAR/OMC SENT TO PATHOLOGIST
--- NOTE | 2016-09-19 14:55 | Wound Care Consultation ---
Wound Assessment Wound Assessment : Wound Present on Admission: Yes New Wound: No Status Change of Wound: No Wound Location Body Site Modif: right Wound Location Body Site: buttocks Wound Type: pressure ulcer Jerald Test: Does not Jerald Pressure Ulcer Stage: deep tissue injury Wound Thickness: Full Thickness Wound Length: 3.0 Wound Width: 2.0 Wound Depth: utd Percent of Wound Purple/Maroon: 100 Wound Drainage Amount: None Wound Drainage Odor: None/Absent Tissue Surrounding Wound: Intact Wound General Appearance: Asymptomatic Wound Comment #1 Right buttock DTI pressure Recommendation -Keep clean and dry -Turn and reposition -Local wound care per protocol -Optimize nutrition -Low air loss overlay mattress -Assess and f/u accordingly YNES COLEY RN Sep 19, 2016 14:55
[2016-09-19 14:58] LABS: INR 1.1 (0.9-1.1); PROTHROMBIN TIME 11.5 SEC (9.30-11.50)
[2016-09-19 15:01] LABS: ALANINE AMINOTRANSFERASE 8 U/L (3-33); ALBUMIN/GLOBULIN RATIO 0.9 (1.0-2.7); ANION GAP 18 (5-15); ASPARTATE AMINO TRANSFERASE 32 U/L (5-40); CALCIUM 8.6 mg/dL (8.6-10.2); CARBON DIOXIDE 23 mEQ/L (20-30); CHLORIDE 107 mEQ/L (98-107); CREATININE 1.1 mg/dL (0.5-0.9); LACTATE DEHYDROGENASE 385 U/L (135-230); MAGNESIUM 1.9 mg/dL (1.7-2.5); PHOSPHORUS 4.5 mg/dL (2.5-4.8); POTASSIUM 4.6 mEQ/L (3.4-4.9); SODIUM 148 mEQ/L (135-145); TOTAL PROTEIN 6.5 g/dL (6.6-8.7); URIC ACID 8.3 mg/dL (3.0-7.5)
[2016-09-19 15:14] LABS: FREE T3 1.8 pg/mL (2.3-4.2); THYROID STIMULATING HORMONE 0.374 uIU/mL (0.300-4.500)
[2016-09-19 15:29] LABS: HEMOLYSIS 6; IRON 15 ug/dL (37-145); TOTAL IRON BINDING CAPACITY 290 ug/dL (250-400)
[2016-09-19 16:00] VITALS: BP 120/59
[2016-09-19 17:12] LABS: RETICULOCYTE COUNT 2.2 % (0.0-2.0)
[2016-09-19 18:57] LABS: APPEARANCE,URINE SLIGHTLY CLOUDY; KETONES,URINE 1+ (NEGATIVE); LEUKOCYTE ESTERASE ,URINE 3+ (NEGATIVE); NITRITE,URINE NEGATIVE (NEGATIVE); PH,URINE 5 (4.5-8.0); PROTEIN,URINE 1+ (NEGATIVE); UROBILINOGEN,URINE NORMAL MG/DL (0.0-1.0)
--- NOTE | 2016-09-19 19:13 | Internal Med Progress Note ---
Subjective Date of Service: Sep 19, 2016 Physician Name Sher Taylor Attending Physician Kobi Real MD Current Medications Medications (Trade) Dose Ordered Sig/Grisel Route PRN Reason Start Time Stop Time Status Last Admin Dose Admin Carvedilol (Coreg) 12.5 mg EVERY 12 HOURS ORAL 09/19/16 09:00 10/19/16 08:59 09/19/16 10:25 Dextrose (Dextrose 50%) STAT PRN IV Hypoglycemia 09/18/16 21:45 10/18/16 21:44 Digoxin (Lanoxin) 0.125 mg DAILY ORAL 09/19/16 09:00 10/19/16 08:59 09/19/16 08:33 Docusate Sodium (Colace) 200 mg TWICE A DAY ORAL 09/19/16 09:00 10/19/16 08:59 09/19/16 17:34 Enoxaparin Sodium (Lovenox) 30 mg Q12HR SUBQ 09/19/16 09:00 10/19/16 08:59 09/19/16 08:35 Insulin Aspart (NovoLOG) BEFORE MEALS AND HS SUBQ 09/19/16 06:30 10/19/16 06:29 09/19/16 12:20 Morphine Sulfate (Morphine Sulfate) 1 mg Q4H PRN IVP pain scale 1-3 09/18/16 23:15 09/25/16 23:14 09/19/16 15:17 Morphine Sulfate (Morphine Sulfate) 2 mg Q4H PRN IVP pain scale 4-6 09/18/16 23:15 09/25/16 23:14 Ondansetron HCl (Zofran) 4 mg Q6H PRN IVP Nausea & Vomiting 09/19/16 01:15 10/19/16 01:14 Ranitidine HCl (Zantac) 150 mg DAILY ORAL 09/19/16 09:00 10/19/16 08:59 09/19/16 08:34 Allergies: Coded Allergies: No Known Allergies (Unverified , 09/17/16) ROS Limited/Unobtainable: No Constitutional: Reports: no symptoms HEENT: Reports: no symptoms Cardiovascular: Reports: no symptoms Respiratory: Reports: no symptoms Gastrointestinal/Abdominal: Reports: abdomen distended, abdominal pain Genitourinary: Reports: no symptoms Neurologic/Psychiatric: Reports: no symptoms Subjective 70 YO F admitted with small bowel obstruction. Cover for Int Med-Dr Real. S/ P Sm bowel resection 09/18/16. Tolerating Clear liquid diet. Objective Last Vital Signs Date Time Temp Pulse Resp B/P Pulse Ox O2 Delivery O2 Flow Rate FiO2 09/19/16 16:00 79 09/19/16 16:00 98.1 18 120/59 94 Room Air 09/18/16 23:34 3.0 32 General Appearance: mild distress, lethargic, thin EENT: PERRL/EOMI, normal ENT inspection Neck: non-tender, normal alignment, supple, normal inspection Cardiovascular: normal peripheral pulses, normal rate, regular rhythm, no gallop/murmur, no JVD Respiratory/Chest: chest wall non-tender, lungs clear, normal breath sounds, no respiratory distress, no accessory muscle use Abdomen: no organomegaly, no mass, decreased bowel sounds, distended, tender Extremities: normal range of motion, non-tender 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, no motor/sensory deficits Skin: normal pigmentation, warm/dry Laboratory Tests Test 09/18/16 21:10 09/19/16 07:40 09/19/16 14:15 09/19/16 18:00 White Blood Count 9.9 K/UL (4.8-10.8) 11.1 K/UL (4.8-10.8) H Red Blood Count 3.10 M/UL (4.20-5.40) L 3.42 M/UL (4.20-5.40) L Hemoglobin 8.7 G/DL (12.0-16.0) L 9.6 G/DL (12.0-16.0) L Hematocrit 28.1 % (37.0-47.0) L 30.4 % (37.0-47.0) L Mean Corpuscular Volume 91 FL (80-99) 89 FL (80-99) Mean Corpuscular Hemoglobin 28.2 PG (27.0-31.0) 27.9 PG (27.0-31.0) Mean Corpuscular Hemoglobin Concent 31.2 G/DL (32.0-36.0) L 31.4 G/DL (32.0-36.0) L Red Cell Distribution Width 19.7 % (11.6-14.8) H 20.1 % (11.6-14.8) H Platelet Count 266 K/UL (150-450) 279 K/UL (150-450) Mean Platelet Volume 5.8 FL (6.5-10.1) L 6.5 FL (6.5-10.1) Neutrophils (%) (Auto) % (45.0-75.0) % (45.0-75.0) Lymphocytes (%) (Auto) % (20.0-45.0) % (20.0-45.0) Monocytes (%) (Auto) % (1.0-10.0) % (1.0-10.0) Eosinophils (%) (Auto) % (0.0-3.0) % (0.0-3.0) Basophils (%) (Auto) % (0.0-2.0) % (0.0-2.0) Differential Total Cells Counted 100 100 Neutrophils % (Manual) 89 % (45-75) H 86 % (45-75) H Lymphocytes % (Manual) 6 % (20-45) L 7 % (20-45) L Monocytes % (Manual) 5 % (1-10) 6 % (1-10) Eosinophils % (Manual) 0 % (0-3) 0 % (0-3) Basophils % (Manual) 0 % (0-2) 0 % (0-2) Band Neutrophils 0 % (0-8) 1 % (0-8) Platelet Estimate Adequate Adequate Platelet Morphology Normal Normal Hypochromasia 1+ 2+ Anisocytosis 1+ 2+ Sodium Level 145 mEQ/L (135-145) 148 mEQ/L (135-145) H 148 mEQ/L (135-145) H Potassium Level 4.1 mEQ/L (3.4-4.9) 4.3 mEQ/L (3.4-4.9) 4.6 mEQ/L (3.4-4.9) Chloride Level 106 mEQ/L (98-107) 108 mEQ/L (98-107) H 107 mEQ/L (98-107) Carbon Dioxide Level 23 mEQ/L (20-30) 24 mEQ/L (20-30) 23 mEQ/L (20-30) Anion Gap 16 (5-15) H 16 (5-15) H 18 (5-15) H Blood Urea Nitrogen 29 mg/dL (7-23) H 27 mg/dL (7-23) H 26 mg/dL (7-23) H Creatinine 1.0 mg/dL (0.5-0.9) H 1.1 mg/dL (0.5-0.9) H 1.1 mg/dL (0.5-0.9) H Estimat Glomerular Filtration Rate mL/min (>60) mL/min (>60) mL/min (>60) Glucose Level 161 mg/dL (74-106) H 159 mg/dL (74-106) H 152 mg/dL (74-106) H Calcium Level 8.1 mg/dL (8.6-10.2) #L 8.4 mg/dL (8.6-10.2) L 8.6 mg/dL (8.6-10.2) Erythrocyte Sedimentation Rate 60 MM/HR (0-30) H Reticulocyte Count 2.2 % (0.0-2.0) H Prothrombin Time 11.5 SEC (9.30-11.50) Prothromb Time International Ratio 1.1 (0.9-1.1) Activated Partial Thromboplast Time 39 SEC (23-33) H Plasma/Serum Osmolality Pending Uric Acid 8.3 mg/dL (3.0-7.5) H Phosphorus Level 4.5 mg/dL (2.5-4.8) Magnesium Level 1.9 mg/dL (1.7-2.5) Iron Level 15 ug/dL (37-145) L Total Iron Binding Capacity 290 ug/dL (250-400) Percent Iron Saturation 5 % (15-50) L Unsaturated Iron Binding 275 ug/dL (112-346) Total Bilirubin 0.3 mg/dL (0.0-1.2) Aspartate Amino Transf (AST/SGOT) 32 U/L (5-40) Alanine Aminotransferase (ALT/SGPT) 8 U/L (3-33) Alkaline Phosphatase 92 U/L (35-104) Lactate Dehydrogenase 385 U/L (135-230) H Total Creatine Kinase 55 U/L (26-140) Total Protein 6.5 g/dL (6.6-8.7) L Albumin 3.2 g/dL (3.5-5.2) L Globulin 3.3 g/dL Albumin/Globulin Ratio 0.9 (1.0-2.7) L Carcinoembryonic Antigen 2.1 ng/mL Vitamin B12 Level 517 pg/mL (211-946) Folate Pending Thyroid Stimulating Hormone (TSH) 0.374 uIU/mL (0.300-4.500) Free Thyroxine 1.30 ng/dL (0.86-1.85) Free Triiodothyronine 1.8 pg/mL (2.3-4.2) L Cortisol Pending Urine Color Pale yellow Urine Appearance Slightly cloudy Urine pH 5 (4.5-8.0) Urine Specific [place] 1.015 (1.005-1.035) Urine Protein 1+ (NEGATIVE) H Urine Glucose (UA) Negative (NEGATIVE) Urine Ketones 1+ (NEGATIVE) H Urine Occult Blood 3+ (NEGATIVE) H Urine Nitrite Negative (NEGATIVE) Urine Bilirubin Negative (NEGATIVE) Urine Urobilinogen Normal MG/DL (0.0-1.0) Urine Leukocyte Esterase 3+ (NEGATIVE) H Urine RBC Pending Urine WBC Pending Urine Squamous Epithelial Cells Pending Urine Bacteria Pending Urine Eosinophils Pending Urine Osmolality Pending Urine Random Sodium Pending Urine Random Chloride Pending Urine Potassium Timed Pending Microbiology Date/Time Source Procedure Growth Status 09/18/16 05:45 Urine,Clean Catch Urine Culture - Preliminary Gram Negative Bacillus 1 Resulted Intake and Output 09/18/16 09/19/16 19:00 07:00 Intake Total 2228 ml Output Total 320 ml Balance 1908 ml IV Total 2228 ml Output Urine Total 270 ml Gastric Drainage Total 0 ml Estimated Blood Loss 50 ml # Voids 2 Assessment/Plan Problem List: (1) Osteoporosis (2) Hypercholesteremia (3) Small bowel obstruction Assessment & Plan: S/P right femoral hernia repair, exp laparotomy and sm bowel resection 09/18/16. See surgery note. (4) Inguinal hernia (5) HTN (hypertension) Assessment & Plan: Cont coreg (6) Diabetes mellitus Assessment & Plan: Cont novolog sliding scale. (7) Atrial fibrillation Assessment & Plan: Continue digoxin. Status: not improved SHER TAYLOR Sep 19, 2016 19:13
[2016-09-19 20:00] VITALS: BP 136/62
[2016-09-19 20:59] LABS: BACTERIA,URINE FEW /HPF; RBC,URINE 0-2 /HPF (0 - 2); SQUAMOUS EPITHELIAL CELL,UR FEW /LPF (NONE/OCC); WBC,URINE 20-30 /HPF (0 - 2)
--- NOTE | 2016-09-19 21:57 | Consultation ---
DATE OF CONSULTATION: 09/19/2016 CARDIOLOGY CONSULTATION REFERRING PHYSICIAN: Kobi Real M.D. Sher Hansen M.D. REASON FOR CONSULTATION: Atrial fibrillation with rapid ventricular response. HISTORY OF PRESENT ILLNESS: The patient is a 70-year-old lady with history of hypertension, diabetes, paroxysmal atrial fibrillation, as well as history of coronary artery bypass graft, who came to the emergency room with abdominal pain. The patient underwent a surgery by Dr. Gael Brooks for strangulated right groin hernia and small bowel obstruction with exploratory laparotomy and small bowel resection besides stapled anastomosis. The patient subsequently developed at baseline. The patient was in atrial fibrillation with controlled ventricular response. Following the surgery, the patient developed atrial fibrillation with rapid ventricular response. The patient was then transferred to a monitored bed for further evaluation and management. At the time of my evaluation, the patient denies any chest pain or shortness of breath. REVIEW OF SYSTEMS: Review of systems was performed and was negative other than what was mentioned in the history of present illness. PAST MEDICAL HISTORY: 1. Hypertension. 2. Diabetes. 3. Hyperlipidemia. 4. History of stroke in 1990. 5. History of repeat valve replacement in 1995. 6. aortic stenosis. FAMILY HISTORY: Noncontributory. SOCIAL HISTORY: She lives at home. Does not smoke or drink alcohol. PHYSICAL EXAMINATION: VITAL SIGNS: Show blood pressure of 139/60, pulse is 110, respirations 18, and she is afebrile. HEAD AND NECK: Shows no JVD or carotid bruits. LUNGS: Clear. CARDIOVASCULAR: Shows irregular S1, S2 with no gallop or murmur. ABDOMEN: Soft and nontender and is postop. EXTREMITIES: No pitting edema. LABORATORY DATA: Labs show white count of 11.1, hemoglobin 9.3, hematocrit of 30, and platelet count of 279,000. Sodium 140, potassium 4.3, BUN of 27, and creatinine 1.1. is 1.6. INR is 1.1. ASSESSMENT AND PLAN: 1. Atrial fibrillation with rapid ventricular response. The patient's digoxin level is therapeutic. We will resume the patient's digoxin 0.125 mg daily and increase the Coreg to 12.5 mg b.i.d. for better rate control during atrial fibrillation. The patient should be restarted back on Coumadin until INR is therapeutic again as soon as it is safe from Dr. Brooks . 2. Status post aortic valve replacement as mentioned above. 3. Questionable coronary artery disease. The patient was supposed to be transferred to [facility] for catheterization. We will try to find whether it was performed or not. 4. Small bowel obstruction, status post surgery per Dr. Brooks. 5. Hypertension. Continue Coreg. 6. Diabetes, will be on metformin. 7. Hyperlipidemia, on Lipitor. Thank you very much, Dr. Real, for allowing me to participate in the care of this patient. Please do not hesitate to contact me for any questions regarding my evaluation. Osmany Carmona M.D. DR: SABINE JOB#: [id number] CC:
[2016-09-20] VITALS: BP 113/48
[2016-09-20 04:00] VITALS: BP 123/60
[2016-09-20] MEDS: NovoLOG Insulin Flexpen SUBQ SCH ×4 (06:15→20:21)
[2016-09-20 07:50] VITALS: BP 130/60
[2016-09-20 08:38] LABS: TROPONIN I < 0.30 ng/mL (<=0.30)
[2016-09-20 08:41] LABS: MEAN CORPUSCULAR HGB CONC 31.2 G/DL (32.0-36.0); MEAN CORPUSCULAR VOLUME 90 FL (80-99); MEAN PLATELET VOLUME 6.7 FL (6.5-10.1); PLATELET COUNT 243 K/UL (150-450); RED BLOOD COUNT 3.01 M/UL (4.20-5.40); RED CELL DISTRIBUTION WIDTH 20.3 % (11.6-14.8); WHITE BLOOD COUNT 8.5 K/UL (4.8-10.8)
[2016-09-20] MEDS: Carvedilol 6.25mg Tab ORAL SCH ×2 (08:44→20:19)
[2016-09-20] MEDS: Docusate 100mg cap ORAL SCH ×2 (08:44→17:49)
[2016-09-20] MEDS: Digoxin 0.125mg tab ORAL SCH (08:45)
[2016-09-20] MEDS: Enoxaparin 30mg Inj SUBQ SCH (08:46)
--- NOTE | 2016-09-20 08:52 | General Surgery Progress Note ---
General Surgery-Progress Note Subjective Additional Comments Had flatus. No BM. Feeling ok. Objective Last 24 Hour Vital Signs Date Time Temp Pulse Resp B/P Pulse Ox O2 Delivery O2 Flow Rate FiO2 09/20/16 08:45 81 09/20/16 08:44 81 130/60 09/20/16 07:50 97.7 81 18 130/60 96 Room Air 09/20/16 04:00 98.1 78 18 123/60 97 Room Air 09/20/16 04:00 66 09/20/16 00:00 98.2 78 18 113/48 96 Room Air 09/20/16 00:00 76 09/19/16 21:51 88 136/62 09/19/16 21:00 80 09/19/16 20:00 96.0 88 19 136/62 95 Room Air 09/19/16 16:00 79 09/19/16 16:00 98.1 78 18 120/59 94 Room Air 09/19/16 16:00 79 09/19/16 12:00 74 09/19/16 12:00 97.6 96 17 124/59 99 Room Air 09/19/16 10:25 97 138/65 I&O Intake and Output 09/19/16 09/20/16 19:00 07:00 Intake Total 1085 ml Output Total 200 ml Balance 885 ml Intake Oral 560 ml IV Total 525 ml Output Urine Total 200 ml # Voids 1 1 Wound: clean, intact Laboratory Tests Test 09/19/16 14:15 09/19/16 18:00 09/20/16 07:55 Erythrocyte Sedimentation Rate 60 MM/HR (0-30) H Reticulocyte Count 2.2 % (0.0-2.0) H Prothrombin Time 11.5 SEC (9.30-11.50) Prothromb Time International Ratio 1.1 (0.9-1.1) Activated Partial Thromboplast Time 39 SEC (23-33) H Sodium Level 148 mEQ/L (135-145) H Pending Potassium Level 4.6 mEQ/L (3.4-4.9) Pending Chloride Level 107 mEQ/L (98-107) Pending Carbon Dioxide Level 23 mEQ/L (20-30) Pending Anion Gap 18 (5-15) H Blood Urea Nitrogen 26 mg/dL (7-23) H Pending Creatinine 1.1 mg/dL (0.5-0.9) H Pending Estimat Glomerular Filtration Rate mL/min (>60) Pending Glucose Level 152 mg/dL (74-106) H Pending Plasma/Serum Osmolality Pending Uric Acid 8.3 mg/dL (3.0-7.5) H Calcium Level 8.6 mg/dL (8.6-10.2) Pending Phosphorus Level 4.5 mg/dL (2.5-4.8) Magnesium Level 1.9 mg/dL (1.7-2.5) Iron Level 15 ug/dL (37-145) L Total Iron Binding Capacity 290 ug/dL (250-400) Percent Iron Saturation 5 % (15-50) L Unsaturated Iron Binding 275 ug/dL (112-346) Total Bilirubin 0.3 mg/dL (0.0-1.2) Aspartate Amino Transf (AST/SGOT) 32 U/L (5-40) Alanine Aminotransferase (ALT/SGPT) 8 U/L (3-33) Alkaline Phosphatase 92 U/L (35-104) Lactate Dehydrogenase 385 U/L (135-230) H Total Creatine Kinase 55 U/L (26-140) Total Protein 6.5 g/dL (6.6-8.7) L Albumin 3.2 g/dL (3.5-5.2) L Globulin 3.3 g/dL Albumin/Globulin Ratio 0.9 (1.0-2.7) L Carcinoembryonic Antigen 2.1 ng/mL Vitamin B12 Level 517 pg/mL (211-946) Folate Pending Thyroid Stimulating Hormone (TSH) 0.374 uIU/mL (0.300-4.500) Free Thyroxine 1.30 ng/dL (0.86-1.85) Free Triiodothyronine 1.8 pg/mL (2.3-4.2) L Cortisol Pending Urine Color Pale yellow Urine Appearance Slightly cloudy Urine pH 5 (4.5-8.0) Urine Specific [place] 1.015 (1.005-1.035) Urine Protein 1+ (NEGATIVE) H Urine Glucose (UA) Negative (NEGATIVE) Urine Ketones 1+ (NEGATIVE) H Urine Occult Blood 3+ (NEGATIVE) H Urine Nitrite Negative (NEGATIVE) Urine Bilirubin Negative (NEGATIVE) Urine Urobilinogen Normal MG/DL (0.0-1.0) Urine Leukocyte Esterase 3+ (NEGATIVE) H Urine RBC 0-2 /HPF (0 - 2) Urine WBC 20-30 /HPF (0 - 2) H Urine Squamous Epithelial Cells Few /LPF (NONE/OCC) Urine Bacteria Few /HPF (NONE) Urine Eosinophils None seen Urine Osmolality Pending Urine Random Sodium 13 mmol/L Urine Random Chloride 23 mmol/L Urine Potassium Timed 52 mmol/L White Blood Count 8.5 K/UL (4.8-10.8) Red Blood Count 3.01 M/UL (4.20-5.40) L Hemoglobin 8.4 G/DL (12.0-16.0) L Hematocrit 27.0 % (37.0-47.0) L Mean Corpuscular Volume 90 FL (80-99) Mean Corpuscular Hemoglobin 28.0 PG (27.0-31.0) Mean Corpuscular Hemoglobin Concent 31.2 G/DL (32.0-36.0) L Red Cell Distribution Width 20.3 % (11.6-14.8) H Platelet Count 243 K/UL (150-450) Mean Platelet Volume 6.7 FL (6.5-10.1) Neutrophils (%) (Auto) % (45.0-75.0) Lymphocytes (%) (Auto) % (20.0-45.0) Monocytes (%) (Auto) % (1.0-10.0) Eosinophils (%) (Auto) % (0.0-3.0) Basophils (%) (Auto) % (0.0-2.0) Neutrophils % (Manual) Pending Lymphocytes % (Manual) Pending Platelet Estimate Pending Platelet Morphology Pending Troponin I < 0.30 ng/mL (<=0.30) Digoxin Level Pending Additional Comments Abd: slight distention but soft, no peritoneal signs. Incisions clean,dry, intact. Assessment Post-op Diagnosis Exploratory laparotomy, SBR, repair of incarcerated femoral hernia Plan Additional Comments - diabetic diet as tolerated - OOB, ambulation - ok for anticoagulation - leave wound uncovered - appreciate IM/cardiology care ZULLY NEGRO Sep 20, 2016 08:52
[2016-09-20 08:57] LABS: ANION GAP 16 (5-15); CALCIUM 8.5 mg/dL (8.6-10.2); CARBON DIOXIDE 23 mEQ/L (20-30); CHLORIDE 105 mEQ/L (98-107); CREATININE 1.1 mg/dL (0.5-0.9); POTASSIUM 4.6 mEQ/L (3.4-4.9); SODIUM 144 mEQ/L (135-145)
--- NOTE | 2016-09-20 09:47 | Pulmonology Progress Note ---
Assessment/Plan Problems: (1) Status post hernia repair (2) Atrial fibrillation (3) Hypoalbuminemia (4) Abdominal pain (5) CAD (coronary artery disease) (6) HTN (hypertension) (7) Diabetes mellitus (8) ATN (acute tubular necrosis) (9) Anemia Assessment/Plan improving keep npo afib, with episodes of hiram check electrolytes. titrate cardiac meds. Subjective ROS Limited/Unobtainable: No Interval Events: awake, no new complains Hematologic: Reports: bleeding, bruising, no symptoms, other, swollen lymph nodes Allergies: Coded Allergies: No Known Allergies (Unverified , 09/17/16) All Systems: reviewed and negative except above Objective Last 24 Hour Vital Signs Date Time Temp Pulse Resp B/P Pulse Ox O2 Delivery O2 Flow Rate FiO2 09/20/16 08:45 81 09/20/16 08:44 81 130/60 09/20/16 07:50 97.7 81 18 130/60 96 Room Air 09/20/16 04:00 98.1 78 18 123/60 97 Room Air 09/20/16 04:00 66 09/20/16 00:00 98.2 78 18 113/48 96 Room Air 09/20/16 00:00 76 09/19/16 21:51 88 136/62 09/19/16 21:00 80 09/19/16 20:00 96.0 88 19 136/62 95 Room Air 09/19/16 16:00 79 09/19/16 16:00 98.1 78 18 120/59 94 Room Air 09/19/16 16:00 79 09/19/16 12:00 74 09/19/16 12:00 97.6 96 17 124/59 99 Room Air 09/19/16 10:25 97 138/65 Intake and Output 09/19/16 09/20/16 19:00 07:00 Intake Total 1085 ml Output Total 200 ml Balance 885 ml Intake Oral 560 ml IV Total 525 ml Output Urine Total 200 ml # Voids 1 1 General Appearance: cachetic HEENT: normocephalic, anicteric Respiratory/Chest: chest wall non-tender, lungs clear Breasts: no masses Cardiovascular: normal peripheral pulses, normal rate Abdomen: normal bowel sounds, soft, non tender Skin: no rash Neurologic/Psychiatric: venereal disease control head II-XII 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 Microbiology Date/Time Source Procedure Growth Status 09/18/16 00:00 Blood Not Otherwise Specified Blood Culture - Preliminary NO GROWTH AFTER 24 HOURS Resulted 09/17/16 23:45 Blood Not Otherwise Specified Blood Culture - Preliminary NO GROWTH AFTER 24 HOURS Resulted 09/18/16 01:45 Nasal Nares MRSA Culture - Final NO METHICILLIN RESISTANT STAPH AUREUS... Complete 09/19/16 18:00 Urine,Clean Catch Urine Culture - Preliminary NO GROWTH Resulted 09/18/16 05:45 Urine,Clean Catch Urine Culture - Final Escherichia Coli Complete 09/18/16 01:45 Rectum VRE Culture - Final NO VANCOMYCIN RESISTANT ENTEROCOCCUS ... Complete Laboratory Tests 09/19/16 14:15: Erythrocyte Sedimentation Rate 60H, Reticulocyte Count 2.2H, Prothrombin Time 11.5, Prothromb Time International Ratio 1.1, Activated Partial Thromboplast Time 39H, Sodium Level 148H, Potassium Level 4.6, Chloride Level 107, Carbon Dioxide Level 23, Anion Gap 18H, Blood Urea Nitrogen 26H, Creatinine 1.1H, Estimat Glomerular Filtration Rate , Glucose Level 152H, Plasma/Serum Osmolality [Pending], Uric Acid 8.3H, Calcium Level 8.6, Phosphorus Level 4.5, Magnesium Level 1.9, Iron Level 15L, Total Iron Binding Capacity 290, Percent Iron Saturation 5L, Unsaturated Iron Binding 275, Total Bilirubin 0.3, Aspartate Amino Transf (AST/SGOT) 32, Alanine Aminotransferase (ALT/SGPT) 8, Alkaline Phosphatase 92, Lactate Dehydrogenase 385H, Total Creatine Kinase 55, Total Protein 6.5L, Albumin 3.2L, Globulin 3.3, Albumin/Globulin Ratio 0.9L, Carcinoembryonic Antigen 2.1, Vitamin B12 Level 517, Folate [Pending], Thyroid Stimulating Hormone (TSH) 0.374, Free Thyroxine 1.30, Free Triiodothyronine 1.8L , Cortisol [Pending] 09/19/16 18:00: Urine Color Pale yellow, Urine Appearance Slightly cloudy, Urine pH 5, Urine Specific [place] 1.015, Urine Protein 1+H, Urine Glucose (UA) Negative, Urine Ketones 1+H, Urine Occult Blood 3+H, Urine Nitrite Negative, Urine Bilirubin Negative, Urine Urobilinogen Normal, Urine Leukocyte Esterase 3+H, Urine RBC 0-2 , Urine WBC 20-30H, Urine Squamous Epithelial Cells Few, Urine Bacteria Few, Urine Eosinophils None seen, Urine Osmolality [Pending], Urine Random Sodium 13 , Urine Random Chloride 23, Urine Potassium Timed 52 09/20/16 07:55: Sodium Level 144, Potassium Level 4.6, Chloride Level 105, Carbon Dioxide Level 23, Anion Gap 16H, Blood Urea Nitrogen 27H, Creatinine 1.1H, Estimat Glomerular Filtration Rate , Glucose Level 113H, Calcium Level 8.5L, White Blood Count 8.5 , Red Blood Count 3.01L, Hemoglobin 8.4L, Hematocrit 27.0L, Mean Corpuscular Volume 90, Mean Corpuscular Hemoglobin 28.0, Mean Corpuscular Hemoglobin Concent 31.2L, Red Cell Distribution Width 20.3H, Platelet Count 243, Mean Platelet Volume 6.7, Neutrophils (%) (Auto) , Lymphocytes (%) (Auto) , Monocytes (%) (Auto) , Eosinophils (%) (Auto) , Basophils (%) (Auto) , Neutrophils % (Manual) [Pending], Lymphocytes % (Manual) [Pending], Platelet Estimate [Pending], Platelet Morphology [Pending], Troponin I < 0.30, Digoxin Level 1.1 Current Medications Medications (Trade) Dose Ordered Sig/Grisel Route PRN Reason Start Time Stop Time Status Last Admin Dose Admin Carvedilol (Coreg) 12.5 mg EVERY 12 HOURS ORAL 09/19/16 09:00 10/19/16 08:59 09/20/16 08:44 Dextrose (Dextrose 50%) STAT PRN IV Hypoglycemia 09/18/16 21:45 10/18/16 21:44 Digoxin (Lanoxin) 0.125 mg DAILY ORAL 09/19/16 09:00 10/19/16 08:59 09/20/16 08:45 Docusate Sodium (Colace) 200 mg TWICE A DAY ORAL 09/19/16 09:00 10/19/16 08:59 09/20/16 08:44 Enoxaparin Sodium (Lovenox) 30 mg Q12HR SUBQ 09/19/16 09:00 10/19/16 08:59 09/20/16 08:46 Insulin Aspart (NovoLOG) BEFORE MEALS AND HS SUBQ 09/19/16 06:30 10/19/16 06:29 09/19/16 21:51 Morphine Sulfate (Morphine Sulfate) 1 mg Q4H PRN IVP pain scale 1-3 09/18/16 23:15 09/25/16 23:14 09/19/16 15:17 Morphine Sulfate (Morphine Sulfate) 2 mg Q4H PRN IVP pain scale 4-6 09/18/16 23:15 09/25/16 23:14 Ondansetron HCl (Zofran) 4 mg Q6H PRN IVP Nausea & Vomiting 09/19/16 01:15 10/19/16 01:14 Ranitidine HCl (Zantac) 150 mg DAILY ORAL 09/19/16 09:00 10/19/16 08:59 09/20/16 08:44 MAC FARIAS Sep 20, 2016 09:47
[2016-09-20 11:33] VITALS: BP 134/63
--- NOTE | 2016-09-20 12:30 | Cardiac Electrophysiology PN ---
Assessment/Plan Assessment/Plan 1. Atrial fibrillation with rapid ventricular response. Now Kyle in 40s. The patient's digoxin level is therapeutic. Continue digoxin 0.125 mg daily. Decrease Coreg to 6.25 mg b.i.d. Restart Coumadin if OK with Dr Brooks. 2. Status post tissue aortic valve replacement. 3. Questionable coronary artery disease. The patient was supposed to be transferred to [facility] for catheterization. 4. Small bowel obstruction, status post hernia repair per Dr. Brooks. 5. Hypertension. Continue Coreg. 6. Diabetes, will be on metformin. 7. Hyperlipidemia, on Lipitor. Subjective Subjective Still in atrial fib. alert having lunch Objective Last 24 Hour Vital Signs Date Time Temp Pulse Resp B/P Pulse Ox O2 Delivery O2 Flow Rate FiO2 09/20/16 11:33 97.5 80 18 134/63 100 Room Air 09/20/16 08:45 81 09/20/16 08:44 81 130/60 09/20/16 08:00 73 09/20/16 07:50 97.7 81 18 130/60 96 Room Air 09/20/16 06:40 98 Nasal Cannula 3.0 32 09/20/16 06:40 Nasal Cannula 3.0 32 09/20/16 04:00 98.1 78 18 123/60 97 Room Air 09/20/16 04:00 66 09/20/16 00:00 98.2 78 18 113/48 96 Room Air 09/20/16 00:00 76 09/19/16 21:51 88 136/62 09/19/16 21:00 80 09/19/16 20:00 96.0 88 19 136/62 95 Room Air 09/19/16 16:00 79 09/19/16 16:00 98.1 78 18 120/59 94 Room Air 09/19/16 16:00 79 Intake and Output 09/19/16 09/20/16 19:00 07:00 Intake Total 1085 ml Output Total 200 ml Balance 885 ml Intake Oral 560 ml IV Total 525 ml Output Urine Total 200 ml # Voids 1 1 Laboratory Tests Test 09/19/16 14:15 09/19/16 18:00 09/20/16 07:55 Erythrocyte Sedimentation Rate 60 MM/HR (0-30) H Reticulocyte Count 2.2 % (0.0-2.0) H Prothrombin Time 11.5 SEC (9.30-11.50) Prothromb Time International Ratio 1.1 (0.9-1.1) Activated Partial Thromboplast Time 39 SEC (23-33) H Sodium Level 148 mEQ/L (135-145) H 144 mEQ/L (135-145) Potassium Level 4.6 mEQ/L (3.4-4.9) 4.6 mEQ/L (3.4-4.9) Chloride Level 107 mEQ/L (98-107) 105 mEQ/L (98-107) Carbon Dioxide Level 23 mEQ/L (20-30) 23 mEQ/L (20-30) Anion Gap 18 (5-15) H 16 (5-15) H Blood Urea Nitrogen 26 mg/dL (7-23) H 27 mg/dL (7-23) H Creatinine 1.1 mg/dL (0.5-0.9) H 1.1 mg/dL (0.5-0.9) H Estimat Glomerular Filtration Rate mL/min (>60) mL/min (>60) Glucose Level 152 mg/dL (74-106) H 113 mg/dL (74-106) H Plasma/Serum Osmolality Pending Uric Acid 8.3 mg/dL (3.0-7.5) H Calcium Level 8.6 mg/dL (8.6-10.2) 8.5 mg/dL (8.6-10.2) L Phosphorus Level 4.5 mg/dL (2.5-4.8) Magnesium Level 1.9 mg/dL (1.7-2.5) Iron Level 15 ug/dL (37-145) L Total Iron Binding Capacity 290 ug/dL (250-400) Percent Iron Saturation 5 % (15-50) L Unsaturated Iron Binding 275 ug/dL (112-346) Total Bilirubin 0.3 mg/dL (0.0-1.2) Aspartate Amino Transf (AST/SGOT) 32 U/L (5-40) Alanine Aminotransferase (ALT/SGPT) 8 U/L (3-33) Alkaline Phosphatase 92 U/L (35-104) Lactate Dehydrogenase 385 U/L (135-230) H Total Creatine Kinase 55 U/L (26-140) Total Protein 6.5 g/dL (6.6-8.7) L Albumin 3.2 g/dL (3.5-5.2) L Globulin 3.3 g/dL Albumin/Globulin Ratio 0.9 (1.0-2.7) L Carcinoembryonic Antigen 2.1 ng/mL Vitamin B12 Level 517 pg/mL (211-946) Folate Pending Thyroid Stimulating Hormone (TSH) 0.374 uIU/mL (0.300-4.500) Free Thyroxine 1.30 ng/dL (0.86-1.85) Free Triiodothyronine 1.8 pg/mL (2.3-4.2) L Cortisol Pending Urine Color Pale yellow Urine Appearance Slightly cloudy Urine pH 5 (4.5-8.0) Urine Specific [place] 1.015 (1.005-1.035) Urine Protein 1+ (NEGATIVE) H Urine Glucose (UA) Negative (NEGATIVE) Urine Ketones 1+ (NEGATIVE) H Urine Occult Blood 3+ (NEGATIVE) H Urine Nitrite Negative (NEGATIVE) Urine Bilirubin Negative (NEGATIVE) Urine Urobilinogen Normal MG/DL (0.0-1.0) Urine Leukocyte Esterase 3+ (NEGATIVE) H Urine RBC 0-2 /HPF (0 - 2) Urine WBC 20-30 /HPF (0 - 2) H Urine Squamous Epithelial Cells Few /LPF (NONE/OCC) Urine Bacteria Few /HPF (NONE) Urine Eosinophils None seen Urine Osmolality Pending Urine Random Sodium 13 mmol/L Urine Random Chloride 23 mmol/L Urine Potassium Timed 52 mmol/L White Blood Count 8.5 K/UL (4.8-10.8) Red Blood Count 3.01 M/UL (4.20-5.40) L Hemoglobin 8.4 G/DL (12.0-16.0) L Hematocrit 27.0 % (37.0-47.0) L Mean Corpuscular Volume 90 FL (80-99) Mean Corpuscular Hemoglobin 28.0 PG (27.0-31.0) Mean Corpuscular Hemoglobin Concent 31.2 G/DL (32.0-36.0) L Red Cell Distribution Width 20.3 % (11.6-14.8) H Platelet Count 243 K/UL (150-450) Mean Platelet Volume 6.7 FL (6.5-10.1) Neutrophils (%) (Auto) % (45.0-75.0) Lymphocytes (%) (Auto) % (20.0-45.0) Monocytes (%) (Auto) % (1.0-10.0) Eosinophils (%) (Auto) % (0.0-3.0) Basophils (%) (Auto) % (0.0-2.0) Neutrophils % (Manual) Pending Lymphocytes % (Manual) Pending Platelet Estimate Pending Platelet Morphology Pending Troponin I < 0.30 ng/mL (<=0.30) Digoxin Level 1.1 ng/mL (0.5-2.0) Microbiology Date/Time Source Procedure Growth Status 09/18/16 00:00 Blood Not Otherwise Specified Blood Culture - Preliminary NO GROWTH AFTER 24 HOURS Resulted 09/17/16 23:45 Blood Not Otherwise Specified Blood Culture - Preliminary NO GROWTH AFTER 24 HOURS Resulted 09/18/16 01:45 Nasal Nares MRSA Culture - Final NO METHICILLIN RESISTANT STAPH AUREUS... Complete 09/19/16 18:00 Urine,Clean Catch Urine Culture - Preliminary NO GROWTH Resulted 09/18/16 05:45 Urine,Clean Catch Urine Culture - Final Escherichia Coli Complete 09/18/16 01:45 Rectum VRE Culture - Final NO VANCOMYCIN RESISTANT ENTEROCOCCUS ... Complete Objective HEAD AND NECK: Shows no JVD or carotid bruits. LUNGS: Clear. CARDIOVASCULAR: Shows irregular S1, S2 with no gallop or murmur. ABDOMEN: Soft and nontender and is postop. EXTREMITIES: No pitting edema. AUTUMN BERRY Sep 20, 2016 12:30
[2016-09-20 14:01] LABS: ANISOCYTOSIS 2+; BAND NEUTROPHILS % (MANUAL) 1 % (0-8); BASOPHILS % (MANUAL) 1 % (0-2); EOSINOPHILS % (MANUAL) 0 % (0-3); HYPOCHROMASIA 2+; LYMPHOCYTES % (MANUAL) 12 % (20-45); NEUTROPHILS % (MANUAL) 78 % (45-75); PLATELET ESTIMATE ADEQUATE; PLATELET MORPHOLOGY NORMAL; TOTAL CELLS COUNTED 100
[2016-09-20] MEDS ORDERED: ENOXAPARIN MISC PRN (14:30)
[2016-09-20 16:00] VITALS: BP 144/70
[2016-09-20] MEDS ORDERED: Warfarin Sodium 5mg ORAL ONE (17:00)
--- NOTE | 2016-09-20 18:50 | Internal Med Progress Note ---
Subjective Date of Service: Sep 20, 2016 Physician Name Sher Taylor Attending Physician Kobi Real MD Current Medications Medications (Trade) Dose Ordered Sig/Grisel Route PRN Reason Start Time Stop Time Status Last Admin Dose Admin Carvedilol (Coreg) 6.25 mg EVERY 12 HOURS ORAL 09/20/16 21:00 10/20/16 20:59 Dextrose (Dextrose 50%) STAT PRN IV Hypoglycemia 09/18/16 21:45 10/18/16 21:44 Digoxin (Lanoxin) 0.125 mg DAILY ORAL 09/19/16 09:00 10/19/16 08:59 09/20/16 08:45 Docusate Sodium (Colace) 200 mg TWICE A DAY ORAL 09/19/16 09:00 10/19/16 08:59 09/20/16 17:49 Enoxaparin Sodium (Lovenox) 50 mg Q12HR SUBQ 09/20/16 21:00 10/20/16 20:59 Insulin Aspart (NovoLOG) BEFORE MEALS AND HS SUBQ 09/19/16 06:30 10/19/16 06:29 09/20/16 16:23 Morphine Sulfate (Morphine Sulfate) 1 mg Q4H PRN IVP pain scale 1-3 09/18/16 23:15 09/25/16 23:14 09/19/16 15:17 Morphine Sulfate (Morphine Sulfate) 2 mg Q4H PRN IVP pain scale 4-6 09/18/16 23:15 09/25/16 23:14 Ondansetron HCl (Zofran) 4 mg Q6H PRN IVP Nausea & Vomiting 09/19/16 01:15 10/19/16 01:14 Ranitidine HCl (Zantac) 150 mg DAILY ORAL 09/19/16 09:00 10/19/16 08:59 09/20/16 08:44 Warfarin Sodium (Coumadin per pharmacy) 1 ea DAILY PRN MISC Per rx protocol 09/20/16 13:00 10/20/16 12:59 Allergies: Coded Allergies: No Known Allergies (Unverified , 09/17/16) ROS Limited/Unobtainable: No Constitutional: Reports: no symptoms HEENT: Reports: no symptoms Cardiovascular: Reports: no symptoms Respiratory: Reports: no symptoms Gastrointestinal/Abdominal: Reports: abdomen distended, abdominal pain Genitourinary: Reports: no symptoms Neurologic/Psychiatric: Reports: no symptoms Subjective 70 YO F admitted with small bowel obstruction. Cover for Int Med-Dr Real. S/ P Sm bowel resection 09/18/16. Tolerating diabetic diet. Objective Last Vital Signs Date Time Temp Pulse Resp B/P Pulse Ox O2 Delivery O2 Flow Rate FiO2 09/20/16 16:00 65 09/20/16 16:00 97.2 18 144/70 97 Room Air 09/20/16 06:40 3.0 32 Laboratory Tests Test 09/20/16 07:55 White Blood Count 8.5 K/UL (4.8-10.8) Red Blood Count 3.01 M/UL (4.20-5.40) L Hemoglobin 8.4 G/DL (12.0-16.0) L Hematocrit 27.0 % (37.0-47.0) L Mean Corpuscular Volume 90 FL (80-99) Mean Corpuscular Hemoglobin 28.0 PG (27.0-31.0) Mean Corpuscular Hemoglobin Concent 31.2 G/DL (32.0-36.0) L Red Cell Distribution Width 20.3 % (11.6-14.8) H Platelet Count 243 K/UL (150-450) Mean Platelet Volume 6.7 FL (6.5-10.1) Neutrophils (%) (Auto) % (45.0-75.0) Lymphocytes (%) (Auto) % (20.0-45.0) Monocytes (%) (Auto) % (1.0-10.0) Eosinophils (%) (Auto) % (0.0-3.0) Basophils (%) (Auto) % (0.0-2.0) Differential Total Cells Counted 100 Neutrophils % (Manual) 78 % (45-75) H Lymphocytes % (Manual) 12 % (20-45) L Monocytes % (Manual) 8 % (1-10) Eosinophils % (Manual) 0 % (0-3) Basophils % (Manual) 1 % (0-2) Band Neutrophils 1 % (0-8) Platelet Estimate Adequate Platelet Morphology Normal Hypochromasia 2+ Anisocytosis 2+ Sodium Level 144 mEQ/L (135-145) Potassium Level 4.6 mEQ/L (3.4-4.9) Chloride Level 105 mEQ/L (98-107) Carbon Dioxide Level 23 mEQ/L (20-30) Anion Gap 16 (5-15) H Blood Urea Nitrogen 27 mg/dL (7-23) H Creatinine 1.1 mg/dL (0.5-0.9) H Estimat Glomerular Filtration Rate mL/min (>60) Glucose Level 113 mg/dL (74-106) H Calcium Level 8.5 mg/dL (8.6-10.2) L Troponin I < 0.30 ng/mL (<=0.30) Digoxin Level 1.1 ng/mL (0.5-2.0) Microbiology Date/Time Source Procedure Growth Status 09/18/16 00:00 Blood Not Otherwise Specified Blood Culture - Preliminary NO GROWTH AFTER 24 HOURS Resulted 09/17/16 23:45 Blood Not Otherwise Specified Blood Culture - Preliminary NO GROWTH AFTER 24 HOURS Resulted 09/18/16 01:45 Nasal Nares MRSA Culture - Final NO METHICILLIN RESISTANT STAPH AUREUS... Complete 09/19/16 18:00 Urine,Clean Catch Urine Culture - Preliminary NO GROWTH Resulted 09/18/16 05:45 Urine,Clean Catch Urine Culture - Final Escherichia Coli Complete 09/18/16 01:45 Rectum VRE Culture - Final NO VANCOMYCIN RESISTANT ENTEROCOCCUS ... Complete Intake and Output 09/19/16 09/20/16 19:00 07:00 Intake Total 1085 ml Output Total 200 ml Balance 885 ml Intake Oral 560 ml IV Total 525 ml Output Urine Total 200 ml # Voids 1 1 Objective General Appearance: mild distress, lethargic, thin EENT: PERRL/EOMI, normal ENT inspection Neck: non-tender, normal alignment, supple, normal inspection Cardiovascular: normal peripheral pulses, normal rate, regular rhythm, no gallop/murmur, no JVD Respiratory/Chest: chest wall non-tender, lungs clear, normal breath sounds, no respiratory distress, no accessory muscle use Abdomen: no organomegaly, no mass, decreased bowel sounds, distended, tender Extremities: normal range of motion, non-tender 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 See surgery note. (4) Inguinal hernia (5) HTN (hypertension) Assessment & Plan: Cont coreg (6) Diabetes mellitus Assessment & Plan: Cont novolog sliding scale. (7) Atrial fibrillation Assessment & Plan: Continue digoxin. Status: tolerating diet SHER TAYLOR Sep 20, 2016 18:50
[2016-09-20 20:00] VITALS: BP 138/58
[2016-09-20] MEDS: Enoxaparin 60mg Inj SUBQ SCH (20:22)
[2016-09-21 00:07] VITALS: BP 123/54
[2016-09-21 04:05] VITALS: BP 119/62
[2016-09-21] MEDS: NovoLOG Insulin Flexpen SUBQ SCH ×4 (06:30→20:56)
[2016-09-21 07:38] LABS: BASOPHILS % (AUTO) 0.8 % (0.0-2.0); EOSINOPHILS % (AUTO) 2.2 % (0.0-3.0); LYMPHOCYTES % (AUTO) 15.3 % (20.0-45.0); MEAN CORPUSCULAR HEMOGLOBIN 28.3 PG (27.0-31.0); MEAN CORPUSCULAR HGB CONC 31.9 G/DL (32.0-36.0); MEAN CORPUSCULAR VOLUME 89 FL (80-99); MEAN PLATELET VOLUME 7.1 FL (6.5-10.1); MONOCYTES % (AUTO) 5.7 % (1.0-10.0); PLATELET COUNT 254 K/UL (150-450); RED BLOOD COUNT 2.91 M/UL (4.20-5.40); RED CELL DISTRIBUTION WIDTH 19.8 % (11.6-14.8); WHITE BLOOD COUNT 5.2 K/UL (4.8-10.8)
[2016-09-21 08:00] VITALS: BP 130/62
[2016-09-21 08:14] LABS: ALANINE AMINOTRANSFERASE 5 U/L (3-33); ALBUMIN/GLOBULIN RATIO 0.9 (1.0-2.7); ANION GAP 15 (5-15); ASPARTATE AMINO TRANSFERASE 16 U/L (5-40); CALCIUM 8.5 mg/dL (8.6-10.2); CARBON DIOXIDE 24 mEQ/L (20-30); CHLORIDE 106 mEQ/L (98-107); CREATININE 0.9 mg/dL (0.5-0.9); HEMOLYSIS 0; MAGNESIUM 2.4 mg/dL (1.7-2.5); PHOSPHORUS 2.4 mg/dL (2.5-4.8); POTASSIUM 4.3 mEQ/L (3.4-4.9); SODIUM 145 mEQ/L (135-145); TOTAL PROTEIN 6.1 g/dL (6.6-8.7)
[2016-09-21] MEDS: Carvedilol 6.25mg Tab ORAL SCH ×2 (08:19→20:56)
[2016-09-21] MEDS: Digoxin 0.125mg tab ORAL SCH (08:20)
[2016-09-21] MEDS: Docusate 100mg cap ORAL SCH ×2 (08:20→17:34)
[2016-09-21] MEDS: Enoxaparin 60mg Inj SUBQ SCH ×2 (08:21→20:54)
[2016-09-21 08:39] LABS: INR 1.3 (0.9-1.1); PROTHROMBIN TIME 13.7 SEC (9.30-11.50)
--- NOTE | 2016-09-21 09:50 | Diagnostic Imaging Report ---
Indications: Elevated renal function tests Technique: Transabdominal real-time grayscale and duplex Doppler imaging of the kidneys, retroperitoneum, and urinary bladder was performed Findings: Comparison: CT abdomen pelvis 09/18/16 Right kidney measures 9.5 cm in length. Normal contour, echotexture, cortical thickness. No stones, other focal lesions, hydronephrosis, or obvious perinephric abnormalities. Left kidney measures 9.6 cm in length. Normal contour, echotexture, cortical thickness. Circumscribed anechoic cortical focus 10 mm diameter. No stones, other focal lesions, hydronephrosis, or obvious perinephric abnormalities. The intrahepatic portion of inferior vena cava is patent and normal caliber. The urinary bladder is distended without obvious abnormality. Impression: Left renal cortical cysts corresponding to larger of [address] scan Otherwise sonographically unremarkable kidneys
--- NOTE | 2016-09-21 10:18 | General Surgery Progress Note ---
General Surgery-Progress Note Subjective Additional Comments Feeling ok. Passing flatus. No BM. Denies N/V. Objective Last 24 Hour Vital Signs Date Time Temp Pulse Resp B/P Pulse Ox O2 Delivery O2 Flow Rate FiO2 09/21/16 08:20 78 09/21/16 08:19 77 130/62 09/21/16 04:05 97.8 58 17 119/62 97 Room Air 09/21/16 04:00 54 09/21/16 00:07 97.7 52 18 123/54 97 Room Air 09/21/16 00:00 57 09/20/16 20:19 72 138/58 09/20/16 20:00 97.3 72 18 138/58 96 Room Air 09/20/16 20:00 70 09/20/16 19:42 Room Air 09/20/16 19:42 97 Room Air 09/20/16 16:00 65 09/20/16 16:00 97.2 82 18 144/70 97 Room Air 09/20/16 12:00 62 09/20/16 11:33 97.5 80 18 134/63 100 Room Air I&O Intake and Output 09/20/16 09/21/16 19:00 07:00 Intake Total 850 ml 720 ml Balance 850 ml 720 ml Intake Oral 850 ml 720 ml # Voids 4 Laboratory Tests Test 09/21/16 06:40 White Blood Count 5.2 K/UL (4.8-10.8) Red Blood Count 2.91 M/UL (4.20-5.40) L Hemoglobin 8.2 G/DL (12.0-16.0) L Hematocrit 25.8 % (37.0-47.0) L Mean Corpuscular Volume 89 FL (80-99) Mean Corpuscular Hemoglobin 28.3 PG (27.0-31.0) Mean Corpuscular Hemoglobin Concent 31.9 G/DL (32.0-36.0) L Red Cell Distribution Width 19.8 % (11.6-14.8) H Platelet Count 254 K/UL (150-450) Mean Platelet Volume 7.1 FL (6.5-10.1) Neutrophils (%) (Auto) 76.0 % (45.0-75.0) H Lymphocytes (%) (Auto) 15.3 % (20.0-45.0) L Monocytes (%) (Auto) 5.7 % (1.0-10.0) Eosinophils (%) (Auto) 2.2 % (0.0-3.0) Basophils (%) (Auto) 0.8 % (0.0-2.0) Prothrombin Time 13.7 SEC (9.30-11.50) H Prothromb Time International Ratio 1.3 (0.9-1.1) H Activated Partial Thromboplast Time 47 SEC (23-33) H Sodium Level 145 mEQ/L (135-145) Potassium Level 4.3 mEQ/L (3.4-4.9) Chloride Level 106 mEQ/L (98-107) Carbon Dioxide Level 24 mEQ/L (20-30) Anion Gap 15 (5-15) Blood Urea Nitrogen 23 mg/dL (7-23) Creatinine 0.9 mg/dL (0.5-0.9) Estimat Glomerular Filtration Rate mL/min (>60) Glucose Level 103 mg/dL (74-106) Calcium Level 8.5 mg/dL (8.6-10.2) L Phosphorus Level 2.4 mg/dL (2.5-4.8) L Magnesium Level 2.4 mg/dL (1.7-2.5) Total Bilirubin 0.3 mg/dL (0.0-1.2) Aspartate Amino Transf (AST/SGOT) 16 U/L (5-40) Alanine Aminotransferase (ALT/SGPT) 5 U/L (3-33) Alkaline Phosphatase 98 U/L (35-104) Total Protein 6.1 g/dL (6.6-8.7) L Albumin 2.9 g/dL (3.5-5.2) L Globulin 3.2 g/dL Albumin/Globulin Ratio 0.9 (1.0-2.7) L Additional Comments Abd: soft, wound C/D/I Assessment Post-op Diagnosis Exploratory laparotomy, SBR, repair of incarcerated femoral hernia 09/18/16 Plan Additional Comments - diabetic diet - OOB, ambulation - ok for Coumadin - upon discharge, please have pt follow up with Dr. Gael Brooks in 1-2 weeks. - appreciate IM/cardiology care ZULLY NEGRO Sep 21, 2016 10:18
[2016-09-21 11:55] VITALS: BP 132/57
--- NOTE | 2016-09-21 12:48 | Pulmonology Progress Note ---
Assessment/Plan Problems: (1) Status post hernia repair (2) Atrial fibrillation (3) Hypoalbuminemia (4) Abdominal pain (5) CAD (coronary artery disease) (6) HTN (hypertension) (7) Diabetes mellitus (8) ATN (acute tubular necrosis) (9) Anemia Assessment/Plan improving keep npo afib, with episodes of hiram check electrolytes. titrate cardiac meds. Subjective ROS Limited/Unobtainable: No Constitutional: Reports: anorexia, fatigue Gastrointestinal/Abdominal: Reports: bloating, diarrhea, nausea Musculoskeletal: Reports: pain Allergies: Coded Allergies: No Known Allergies (Unverified , 09/17/16) Objective Last 24 Hour Vital Signs Date Time Temp Pulse Resp B/P Pulse Ox O2 Delivery O2 Flow Rate FiO2 09/21/16 11:55 97.3 64 18 132/57 96 Room Air 09/21/16 08:20 78 09/21/16 08:19 77 130/62 09/21/16 08:00 87 09/21/16 08:00 97.7 54 18 130/62 97 Room Air 09/21/16 04:05 97.8 58 17 119/62 97 Room Air 09/21/16 04:00 54 09/21/16 00:07 97.7 52 18 123/54 97 Room Air 09/21/16 00:00 57 09/20/16 20:19 72 138/58 09/20/16 20:00 97.3 72 18 138/58 96 Room Air 09/20/16 20:00 70 09/20/16 19:42 Room Air 09/20/16 19:42 97 Room Air 09/20/16 16:00 65 09/20/16 16:00 97.2 82 18 144/70 97 Room Air Intake and Output 09/20/16 09/21/16 19:00 07:00 Intake Total 850 ml 720 ml Balance 850 ml 720 ml Intake Oral 850 ml 720 ml # Voids 4 General Appearance: no acute distress HEENT: normocephalic, atraumatic, PERRL Respiratory/Chest: chest wall non-tender, decreased breath sounds, accessory muscle use Breasts: no masses Cardiovascular: normal peripheral pulses, normal rate, regular rhythm, no JVD Abdomen: hypoactive bowel sounds, distended, guarding, hernia Genitourinary: normal external genitalia Extremities: no cyanosis 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, no motor/sensory deficits Microbiology Date/Time Source Procedure Growth Status 09/19/16 18:00 Urine,Clean Catch Urine Culture - Preliminary NO GROWTH AFTER 24 HOURS Resulted Laboratory Tests 09/21/16 06:40: White Blood Count 5.2, Red Blood Count 2.91L, Hemoglobin 8.2L, Hematocrit 25.8L , Mean Corpuscular Volume 89, Mean Corpuscular Hemoglobin 28.3, Mean Corpuscular Hemoglobin Concent 31.9L, Red Cell Distribution Width 19.8H, Platelet Count 254, Mean Platelet Volume 7.1, Neutrophils (%) (Auto) 76.0H, Lymphocytes (%) (Auto) 15.3L, Monocytes (%) (Auto) 5.7, Eosinophils (%) (Auto) 2.2, Basophils (%) (Auto) 0.8, Prothrombin Time 13.7H, Prothromb Time International Ratio 1.3H, Activated Partial Thromboplast Time 47H, Sodium Level 145, Potassium Level 4.3, Chloride Level 106, Carbon Dioxide Level 24, Anion Gap 15, Blood Urea Nitrogen 23, Creatinine 0.9, Estimat Glomerular Filtration Rate , Glucose Level 103, Calcium Level 8.5L, Phosphorus Level 2.4L, Magnesium Level 2.4, Total Bilirubin 0.3, Aspartate Amino Transf (AST/SGOT) 16, Alanine Aminotransferase (ALT/SGPT) 5, Alkaline Phosphatase 98, Total Protein 6.1L, Albumin 2.9L, Globulin 3.2, Albumin/Globulin Ratio 0.9L Current Medications Medications (Trade) Dose Ordered Sig/Grisel Route PRN Reason Start Time Stop Time Status Last Admin Dose Admin Carvedilol (Coreg) 6.25 mg EVERY 12 HOURS ORAL 09/20/16 21:00 10/20/16 20:59 09/21/16 08:19 Dextrose (Dextrose 50%) STAT PRN IV Hypoglycemia 09/18/16 21:45 10/18/16 21:44 Digoxin (Lanoxin) 0.125 mg DAILY ORAL 09/19/16 09:00 10/19/16 08:59 09/21/16 08:20 Docusate Sodium (Colace) 200 mg TWICE A DAY ORAL 09/19/16 09:00 10/19/16 08:59 09/21/16 08:20 Enoxaparin Sodium (Lovenox) 50 mg Q12HR SUBQ 09/20/16 21:00 10/20/16 20:59 09/21/16 08:21 Insulin Aspart (NovoLOG) BEFORE MEALS AND HS SUBQ 09/19/16 06:30 10/19/16 06:29 09/21/16 12:14 Morphine Sulfate (Morphine Sulfate) 1 mg Q4H PRN IVP pain scale 1-3 09/18/16 23:15 09/25/16 23:14 09/19/16 15:17 Morphine Sulfate (Morphine Sulfate) 2 mg Q4H PRN IVP pain scale 4-6 09/18/16 23:15 09/25/16 23:14 Ondansetron HCl (Zofran) 4 mg Q6H PRN IVP Nausea & Vomiting 09/19/16 01:15 10/19/16 01:14 Ranitidine HCl (Zantac) 150 mg DAILY ORAL 09/19/16 09:00 10/19/16 08:59 09/21/16 08:20 Warfarin Sodium (Coumadin per pharmacy) 1 ea DAILY PRN MISC Per rx protocol 09/20/16 13:00 10/20/16 12:59 Warfarin Sodium (Coumadin) 5 mg COUMADIN ONCE ORAL 09/21/16 17:00 09/21/16 17:01 MAC FLORES Sep 21, 2016 12:48
[2016-09-21 16:00] VITALS: BP 126/72
[2016-09-21] MEDS ORDERED: Warfarin Sodium 5mg ORAL ONE (17:00)
--- NOTE | 2016-09-21 17:04 | Internal Med Progress Note ---
Subjective Date of Service: Sep 21, 2016 Physician Name Nikki Taylor Attending Physician Kobi Real MD Current Medications Medications (Trade) Dose Ordered Sig/Grisel Route PRN Reason Start Time Stop Time Status Last Admin Dose Admin Carvedilol (Coreg) 6.25 mg EVERY 12 HOURS ORAL 09/20/16 21:00 10/20/16 20:59 09/21/16 08:19 Dextrose (Dextrose 50%) STAT PRN IV Hypoglycemia 09/18/16 21:45 10/18/16 21:44 Digoxin (Lanoxin) 0.125 mg DAILY ORAL 09/19/16 09:00 10/19/16 08:59 09/21/16 08:20 Docusate Sodium (Colace) 200 mg TWICE A DAY ORAL 09/19/16 09:00 10/19/16 08:59 09/21/16 08:20 Enoxaparin Sodium (Lovenox) 50 mg Q12HR SUBQ 09/20/16 21:00 10/20/16 20:59 09/21/16 08:21 Insulin Aspart (NovoLOG) BEFORE MEALS AND HS SUBQ 09/19/16 06:30 10/19/16 06:29 09/21/16 12:14 Morphine Sulfate (Morphine Sulfate) 1 mg Q4H PRN IVP pain scale 1-3 09/18/16 23:15 09/25/16 23:14 09/19/16 15:17 Morphine Sulfate (Morphine Sulfate) 2 mg Q4H PRN IVP pain scale 4-6 09/18/16 23:15 09/25/16 23:14 Ondansetron HCl (Zofran) 4 mg Q6H PRN IVP Nausea & Vomiting 09/19/16 01:15 10/19/16 01:14 Ranitidine HCl (Zantac) 150 mg DAILY ORAL 09/19/16 09:00 10/19/16 08:59 09/21/16 08:20 Warfarin Sodium (Coumadin per pharmacy) 1 ea DAILY PRN MISC Per rx protocol 09/20/16 13:00 10/20/16 12:59 Warfarin Sodium (Coumadin) 5 mg COUMADIN ONCE ORAL 09/21/16 17:00 09/21/16 17:01 Allergies: Coded Allergies: No Known Allergies (Unverified , 09/17/16) ROS Limited/Unobtainable: No Constitutional: Reports: no symptoms HEENT: Reports: no symptoms Cardiovascular: Reports: no symptoms Respiratory: Reports: no symptoms Gastrointestinal/Abdominal: Reports: abdomen distended, abdominal pain Genitourinary: Reports: no symptoms Neurologic/Psychiatric: Reports: no symptoms Subjective 70 YO F admitted with small bowel obstruction. Cover for Int Sunny-Dr Real. S/ P Sm bowel resection 09/18/16. Tolerating diabetic diet. Objective Last Vital Signs Date Time Temp Pulse Resp B/P Pulse Ox O2 Delivery O2 Flow Rate FiO2 09/21/16 12:00 62 09/21/16 11:55 97.3 18 132/57 96 Room Air 09/20/16 06:40 3.0 32 Laboratory Tests Test 09/21/16 06:40 White Blood Count 5.2 K/UL (4.8-10.8) Red Blood Count 2.91 M/UL (4.20-5.40) L Hemoglobin 8.2 G/DL (12.0-16.0) L Hematocrit 25.8 % (37.0-47.0) L Mean Corpuscular Volume 89 FL (80-99) Mean Corpuscular Hemoglobin 28.3 PG (27.0-31.0) Mean Corpuscular Hemoglobin Concent 31.9 G/DL (32.0-36.0) L Red Cell Distribution Width 19.8 % (11.6-14.8) H Platelet Count 254 K/UL (150-450) Mean Platelet Volume 7.1 FL (6.5-10.1) Neutrophils (%) (Auto) 76.0 % (45.0-75.0) H Lymphocytes (%) (Auto) 15.3 % (20.0-45.0) L Monocytes (%) (Auto) 5.7 % (1.0-10.0) Eosinophils (%) (Auto) 2.2 % (0.0-3.0) Basophils (%) (Auto) 0.8 % (0.0-2.0) Prothrombin Time 13.7 SEC (9.30-11.50) H Prothromb Time International Ratio 1.3 (0.9-1.1) H Activated Partial Thromboplast Time 47 SEC (23-33) H Sodium Level 145 mEQ/L (135-145) Potassium Level 4.3 mEQ/L (3.4-4.9) Chloride Level 106 mEQ/L (98-107) Carbon Dioxide Level 24 mEQ/L (20-30) Anion Gap 15 (5-15) Blood Urea Nitrogen 23 mg/dL (7-23) Creatinine 0.9 mg/dL (0.5-0.9) Estimat Glomerular Filtration Rate mL/min (>60) Glucose Level 103 mg/dL (74-106) Calcium Level 8.5 mg/dL (8.6-10.2) L Phosphorus Level 2.4 mg/dL (2.5-4.8) L Magnesium Level 2.4 mg/dL (1.7-2.5) Total Bilirubin 0.3 mg/dL (0.0-1.2) Aspartate Amino Transf (AST/SGOT) 16 U/L (5-40) Alanine Aminotransferase (ALT/SGPT) 5 U/L (3-33) Alkaline Phosphatase 98 U/L (35-104) Total Protein 6.1 g/dL (6.6-8.7) L Albumin 2.9 g/dL (3.5-5.2) L Globulin 3.2 g/dL Albumin/Globulin Ratio 0.9 (1.0-2.7) L Microbiology Date/Time Source Procedure Growth Status 09/19/16 18:00 Urine,Clean Catch Urine Culture - Preliminary NO GROWTH AFTER 24 HOURS Resulted Intake and Output 09/20/16 09/21/16 19:00 07:00 Intake Total 850 ml 720 ml Balance 850 ml 720 ml Intake Oral 850 ml 720 ml # Voids 4 Objective General Appearance: mild distress, lethargic, thin EENT: PERRL/EOMI, normal ENT inspection Neck: non-tender, normal alignment, supple, normal inspection Cardiovascular: normal peripheral pulses, normal rate, regular rhythm, no gallop/murmur, no JVD Respiratory/Chest: chest wall non-tender, lungs clear, normal breath sounds, no respiratory distress, no accessory muscle use Abdomen: no organomegaly, no mass, decreased bowel sounds, distended, tender Extremities: normal range of motion, non-tender Neurologic: aprn II-XII 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, no motor/sensory deficits Skin: normal pigmentation, warm/dry Assessment/Plan Problem List: (1) Osteoporosis (2) Hypercholesteremia (3) Small bowel obstruction Assessment & Plan: S/P right femoral hernia repair, exp laparotomy and sm bowel resection 09/18/16. See surgery note. (4) Inguinal hernia (5) HTN (hypertension) Assessment & Plan: Cont coreg (6) Diabetes mellitus Assessment & Plan: Cont novolog sliding scale. (7) Atrial fibrillation Assessment & Plan: See cardiology note. Decrease coreg. Continue digoxin. Status: tolerating diet - diabetic NIKKI TAYLOR Sep 21, 2016 17:04
[2016-09-21 20:00] VITALS: BP 143/62
[2016-09-22] VITALS (7 sets, daily range): BP systolic 127–151; BP diastolic 54–69
[2016-09-22] MEDS: NovoLOG Insulin Flexpen SUBQ SCH ×4 (06:30→21:32)
[2016-09-22 08:20] LABS: BASOPHILS % (AUTO) 0.6 % (0.0-2.0); EOSINOPHILS % (AUTO) 4.2 % (0.0-3.0); LYMPHOCYTES % (AUTO) 17.1 % (20.0-45.0); MEAN CORPUSCULAR HEMOGLOBIN 28.2 PG (27.0-31.0); MEAN CORPUSCULAR HGB CONC 31.9 G/DL (32.0-36.0); MEAN CORPUSCULAR VOLUME 88 FL (80-99); MEAN PLATELET VOLUME 6.8 FL (6.5-10.1); MONOCYTES % (AUTO) 6.1 % (1.0-10.0); PLATELET COUNT 306 K/UL (150-450); RED CELL DISTRIBUTION WIDTH 19.6 % (11.6-14.8); WHITE BLOOD COUNT 4.5 K/UL (4.8-10.8)
[2016-09-22 08:26] LABS: INR 2.2 (0.9-1.1); PROTHROMBIN TIME 22.8 SEC (9.30-11.50)
[2016-09-22 08:39] LABS: ANION GAP 14 (5-15); CALCIUM 8.4 mg/dL (8.6-10.2); CARBON DIOXIDE 24 mEQ/L (20-30); CHLORIDE 106 mEQ/L (98-107); CREATININE 0.8 mg/dL (0.5-0.9); HEMOLYSIS 1; POTASSIUM 3.8 mEQ/L (3.4-4.9); SODIUM 144 mEQ/L (135-145)
[2016-09-22] MEDS: Docusate 100mg cap ORAL SCH ×2 (08:46→17:03)
[2016-09-22] MEDS: Digoxin 0.125mg tab ORAL SCH (08:46)
[2016-09-22] MEDS: Carvedilol 6.25mg Tab ORAL SCH ×2 (08:47→21:31)
--- NOTE | 2016-09-22 10:52 | Cardiac Electrophysiology PN ---
Assessment/Plan Assessment/Plan 1. Atrial fibrillation with rapid ventricular response. Continue digoxin 0.125 mg daily and Coreg 6.25 mg b.i.d. On Coumadin with INR 2.2. Lovenox DCed. 2. Status post aortic valve replacement. 3. Coronary artery disease. No chest pain or SOB. 4. Small bowel obstruction, status post hernia repair per Dr. Brooks. 5. Hypertension. Continue Coreg. 6. Diabetes, will be on metformin. 7. Hyperlipidemia, on Lipitor. DW RN Subjective Subjective In atrial fib rate 60-70s.In NAD. No chest pain or SOB. Objective Last 24 Hour Vital Signs Date Time Temp Pulse Resp B/P Pulse Ox O2 Delivery O2 Flow Rate FiO2 09/22/16 08:47 76 147/69 09/22/16 08:46 76 09/22/16 08:05 97.7 76 18 147/69 98 Room Air 09/22/16 04:01 98.4 56 19 131/54 97 Room Air 09/22/16 04:00 66 09/22/16 00:01 98.1 65 18 127/67 98 Room Air 09/22/16 00:00 61 09/21/16 20:56 63 143/62 09/21/16 20:00 69 09/21/16 20:00 98.1 63 18 143/62 98 Room Air 09/21/16 16:00 65 09/21/16 16:00 98.1 67 18 126/72 97 Room Air 09/21/16 12:00 62 09/21/16 11:55 97.3 64 18 132/57 96 Room Air Intake and Output 09/21/16 09/22/16 19:00 07:00 Intake Total 420 ml 240 ml Balance 420 ml 240 ml Intake Oral 420 ml 240 ml # Voids 1 1 Laboratory Tests Test 09/22/16 07:55 White Blood Count 4.5 K/UL (4.8-10.8) L Red Blood Count 3.00 M/UL (4.20-5.40) L Hemoglobin 8.4 G/DL (12.0-16.0) L Hematocrit 26.5 % (37.0-47.0) L Mean Corpuscular Volume 88 FL (80-99) Mean Corpuscular Hemoglobin 28.2 PG (27.0-31.0) Mean Corpuscular Hemoglobin Concent 31.9 G/DL (32.0-36.0) L Red Cell Distribution Width 19.6 % (11.6-14.8) H Platelet Count 306 K/UL (150-450) Mean Platelet Volume 6.8 FL (6.5-10.1) Neutrophils (%) (Auto) 72.0 % (45.0-75.0) Lymphocytes (%) (Auto) 17.1 % (20.0-45.0) L Monocytes (%) (Auto) 6.1 % (1.0-10.0) Eosinophils (%) (Auto) 4.2 % (0.0-3.0) H Basophils (%) (Auto) 0.6 % (0.0-2.0) Prothrombin Time 22.8 SEC (9.30-11.50) H Prothromb Time International Ratio 2.2 (0.9-1.1) H Sodium Level 144 mEQ/L (135-145) Potassium Level 3.8 mEQ/L (3.4-4.9) Chloride Level 106 mEQ/L (98-107) Carbon Dioxide Level 24 mEQ/L (20-30) Anion Gap 14 (5-15) Blood Urea Nitrogen 21 mg/dL (7-23) Creatinine 0.8 mg/dL (0.5-0.9) Estimat Glomerular Filtration Rate mL/min (>60) Glucose Level 122 mg/dL (74-106) H Calcium Level 8.4 mg/dL (8.6-10.2) L Microbiology Date/Time Source Procedure Growth Status 09/19/16 18:00 Urine,Clean Catch Urine Culture - Final NO GROWTH AFTER 48 HOURS Complete Objective HEAD AND NECK: no JVD LUNGS: Clear. CARDIOVASCULAR: irregular S1, S2 with no gallop or murmur. ABDOMEN: Soft and nontender and is postop. EXTREMITIES: No pitting edema. AUTUMN BERRY Sep 22, 2016 10:52
--- NOTE | 2016-09-22 12:12 | Pulmonology Progress Note ---
Assessment/Plan Problems: (1) Status post hernia repair (2) Atrial fibrillation (3) Hypoalbuminemia (4) Abdominal pain (5) CAD (coronary artery disease) (6) HTN (hypertension) (7) Diabetes mellitus (8) ATN (acute tubular necrosis) (9) Anemia Assessment/Plan improving keep npo afib, heart rate controlled now INR therapteutic check electrolytes. may go to med/surg Subjective ROS Limited/Unobtainable: No Interval Events: no new complains Allergies: Coded Allergies: No Known Allergies (Unverified , 09/17/16) Objective Last 24 Hour Vital Signs Date Time Temp Pulse Resp B/P Pulse Ox O2 Delivery O2 Flow Rate FiO2 09/22/16 11:22 97.7 74 18 130/67 99 Room Air 09/22/16 08:47 76 147/69 09/22/16 08:46 76 09/22/16 08:05 97.7 76 18 147/69 98 Room Air 09/22/16 08:00 74 09/22/16 04:01 98.4 56 19 131/54 97 Room Air 09/22/16 04:00 66 09/22/16 00:01 98.1 65 18 127/67 98 Room Air 09/22/16 00:00 61 09/21/16 20:56 63 143/62 09/21/16 20:00 69 09/21/16 20:00 98.1 63 18 143/62 98 Room Air 09/21/16 16:00 65 09/21/16 16:00 98.1 67 18 126/72 97 Room Air Intake and Output 09/21/16 09/22/16 18:59 06:59 Intake Total 420 ml 240 ml Balance 420 ml 240 ml Intake Oral 420 ml 240 ml # Voids 1 1 General Appearance: no acute distress HEENT: normocephalic, atraumatic Respiratory/Chest: chest wall non-tender, lungs clear Cardiovascular: normal peripheral pulses, normal rate Abdomen: normal bowel sounds, soft, non tender Extremities: no cyanosis Skin: no rash, no ulcers 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/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: industrial 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-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 Microbiology Date/Time Source Procedure Growth Status 09/19/16 18:00 Urine,Clean Catch Urine Culture - Final NO GROWTH AFTER 48 HOURS Complete Laboratory Tests 09/22/16 07:55: White Blood Count 4.5L, Red Blood Count 3.00L, Hemoglobin 8.4L, Hematocrit 26.5L , Mean Corpuscular Volume 88, Mean Corpuscular Hemoglobin 28.2, Mean Corpuscular Hemoglobin Concent 31.9L, Red Cell Distribution Width 19.6H, Platelet Count 306, Mean Platelet Volume 6.8, Neutrophils (%) (Auto) 72.0, Lymphocytes (%) (Auto) 17.1L, Monocytes (%) (Auto) 6.1, Eosinophils (%) (Auto) 4.2H, Basophils (%) (Auto) 0.6, Prothrombin Time 22.8H, Prothromb Time International Ratio 2.2H, Sodium Level 144, Potassium Level 3.8, Chloride Level 106, Carbon Dioxide Level 24, Anion Gap 14, Blood Urea Nitrogen 21, Creatinine 0.8, Estimat Glomerular Filtration Rate , Glucose Level 122H, Calcium Level 8.4L Current Medications Medications (Trade) Dose Ordered Sig/Grisel Route PRN Reason Start Time Stop Time Status Last Admin Dose Admin Carvedilol (Coreg) 6.25 mg EVERY 12 HOURS ORAL 09/20/16 21:00 10/20/16 20:59 09/22/16 08:47 Dextrose (Dextrose 50%) STAT PRN IV Hypoglycemia 09/18/16 21:45 10/18/16 21:44 Digoxin (Lanoxin) 0.125 mg DAILY ORAL 09/19/16 09:00 10/19/16 08:59 09/22/16 08:46 Docusate Sodium (Colace) 200 mg TWICE A DAY ORAL 09/19/16 09:00 10/19/16 08:59 09/22/16 08:46 Insulin Aspart (NovoLOG) BEFORE MEALS AND HS SUBQ 09/19/16 06:30 10/19/16 06:29 09/22/16 11:55 Morphine Sulfate (Morphine Sulfate) 1 mg Q4H PRN IVP pain scale 1-3 09/18/16 23:15 09/25/16 23:14 09/19/16 15:17 Morphine Sulfate (Morphine Sulfate) 2 mg Q4H PRN IVP pain scale 4-6 09/18/16 23:15 09/25/16 23:14 Ondansetron HCl (Zofran) 4 mg Q6H PRN IVP Nausea & Vomiting 09/19/16 01:15 10/19/16 01:14 Ranitidine HCl (Zantac) 150 mg DAILY ORAL 09/19/16 09:00 10/19/16 08:59 09/22/16 08:47 Warfarin Sodium (Coumadin per pharmacy) 1 ea DAILY PRN MISC Per rx protocol 09/20/16 13:00 10/20/16 12:59 Warfarin Sodium (Coumadin) 1 mg COUMADIN ORAL 09/22/16 17:00 09/22/16 17:01 MAC FARIAS Sep 22, 2016 12:12
[2016-09-22] MEDS ORDERED: Warfarin Sodium 1mg ORAL SCH (17:00)
--- NOTE | 2016-09-22 18:57 | Internal Med Progress Note ---
Subjective Date of Service: Sep 22, 2016 Physician Name Sher Taylor Attending Physician Kobi Real MD Current Medications Medications (Trade) Dose Ordered Sig/Grisel Route PRN Reason Start Time Stop Time Status Last Admin Dose Admin Carvedilol (Coreg) 6.25 mg EVERY 12 HOURS ORAL 09/20/16 21:00 10/20/16 20:59 09/22/16 08:47 Dextrose (Dextrose 50%) STAT PRN IV Hypoglycemia 09/18/16 21:45 10/18/16 21:44 Digoxin (Lanoxin) 0.125 mg DAILY ORAL 09/19/16 09:00 10/19/16 08:59 09/22/16 08:46 Docusate Sodium (Colace) 200 mg TWICE A DAY ORAL 09/19/16 09:00 10/19/16 08:59 09/22/16 17:03 Insulin Aspart (NovoLOG) BEFORE MEALS AND HS SUBQ 09/19/16 06:30 10/19/16 06:29 09/22/16 17:04 Morphine Sulfate (Morphine Sulfate) 1 mg Q4H PRN IVP pain scale 1-3 09/18/16 23:15 09/25/16 23:14 09/19/16 15:17 Morphine Sulfate (Morphine Sulfate) 2 mg Q4H PRN IVP pain scale 4-6 09/18/16 23:15 09/25/16 23:14 Ondansetron HCl (Zofran) 4 mg Q6H PRN IVP Nausea & Vomiting 09/19/16 01:15 10/19/16 01:14 Ranitidine HCl (Zantac) 150 mg DAILY ORAL 09/19/16 09:00 10/19/16 08:59 09/22/16 08:47 Warfarin Sodium (Coumadin per pharmacy) 1 ea DAILY PRN MISC Per rx protocol 09/20/16 13:00 10/20/16 12:59 Allergies: Coded Allergies: No Known Allergies (Unverified , 09/17/16) ROS Limited/Unobtainable: No Constitutional: Reports: no symptoms HEENT: Reports: no symptoms Cardiovascular: Reports: no symptoms Gastrointestinal/Abdominal: Reports: abdominal pain Genitourinary: Reports: no symptoms Neurologic/Psychiatric: Reports: no symptoms Subjective 70 YO F admitted with small bowel obstruction. Cover for Int Med-Dr Real. S/ P Sm bowel resection 1/12/17. Tolerating diabetic diet. No bowel movement recorded Objective Last Vital Signs Date Time Temp Pulse Resp B/P Pulse Ox O2 Delivery O2 Flow Rate FiO2 09/22/16 16:00 98.1 78 20 130/66 100 Room Air 09/20/16 06:40 3.0 32 Laboratory Tests Test 09/22/16 07:55 White Blood Count 4.5 K/UL (4.8-10.8) L Red Blood Count 3.00 M/UL (4.20-5.40) L Hemoglobin 8.4 G/DL (12.0-16.0) L Hematocrit 26.5 % (37.0-47.0) L Mean Corpuscular Volume 88 FL (80-99) Mean Corpuscular Hemoglobin 28.2 PG (27.0-31.0) Mean Corpuscular Hemoglobin Concent 31.9 G/DL (32.0-36.0) L Red Cell Distribution Width 19.6 % (11.6-14.8) H Platelet Count 306 K/UL (150-450) Mean Platelet Volume 6.8 FL (6.5-10.1) Neutrophils (%) (Auto) 72.0 % (45.0-75.0) Lymphocytes (%) (Auto) 17.1 % (20.0-45.0) L Monocytes (%) (Auto) 6.1 % (1.0-10.0) Eosinophils (%) (Auto) 4.2 % (0.0-3.0) H Basophils (%) (Auto) 0.6 % (0.0-2.0) Prothrombin Time 22.8 SEC (9.30-11.50) H Prothromb Time International Ratio 2.2 (0.9-1.1) H Sodium Level 144 mEQ/L (135-145) Potassium Level 3.8 mEQ/L (3.4-4.9) Chloride Level 106 mEQ/L (98-107) Carbon Dioxide Level 24 mEQ/L (20-30) Anion Gap 14 (5-15) Blood Urea Nitrogen 21 mg/dL (7-23) Creatinine 0.8 mg/dL (0.5-0.9) Estimat Glomerular Filtration Rate mL/min (>60) Glucose Level 122 mg/dL (74-106) H Calcium Level 8.4 mg/dL (8.6-10.2) L Intake and Output 09/21/16 09/22/16 19:00 07:00 Intake Total 420 ml 240 ml Balance 420 ml 240 ml Intake Oral 420 ml 240 ml # Voids 1 1 Objective General Appearance: mild distress, lethargic, thin EENT: PERRL/EOMI, normal ENT inspection Neck: non-tender, normal alignment, supple, normal inspection Cardiovascular: normal peripheral pulses, normal rate, regular rhythm, no gallop/murmur, no JVD Respiratory/Chest: chest wall non-tender, lungs clear, normal breath sounds, no respiratory distress, no accessory muscle use Abdomen: no organomegaly, no mass, decreased bowel sounds, distended, tender Extremities: normal range of motion, non-tender Neurologic: agile 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 See surgery note. (4) Inguinal hernia (5) HTN (hypertension) Assessment & Plan: Cont coreg (6) Diabetes mellitus Assessment & Plan: Cont novolog sliding scale. (7) Atrial fibrillation Assessment & Plan: See cardiology note. Decrease coreg. Continue digoxin. Status: progressing SHER TAYLOR Sep 22, 2016 18:57
[2016-09-23 04:00] VITALS: BP 147/61
[2016-09-23] MEDS: NovoLOG Insulin Flexpen SUBQ SCH ×4 (06:30→21:06)
[2016-09-23] MEDS ORDERED: Morphine Sulfate 2mg/ml Inj IVP PRN ×2 (07:15)
[2016-09-23 07:47] LABS: BASOPHILS % (AUTO) 0.6 % (0.0-2.0); EOSINOPHILS % (AUTO) 5.6 % (0.0-3.0); LYMPHOCYTES % (AUTO) 17.5 % (20.0-45.0); MEAN CORPUSCULAR HEMOGLOBIN 27.7 PG (27.0-31.0); MEAN CORPUSCULAR HGB CONC 31.3 G/DL (32.0-36.0); MEAN CORPUSCULAR VOLUME 89 FL (80-99); MEAN PLATELET VOLUME 5.9 FL (6.5-10.1); NEUTROPHILS % (AUTO) 68.4 % (45.0-75.0); PLATELET COUNT 308 K/UL (150-450); RED CELL DISTRIBUTION WIDTH 19.5 % (11.6-14.8); WHITE BLOOD COUNT 4.3 K/UL (4.8-10.8)
[2016-09-23 07:59] LABS: PROTHROMBIN TIME 20.9 SEC (9.30-11.50)
[2016-09-23 08:00] VITALS: BP 141/56
[2016-09-23 08:04] LABS: ALANINE AMINOTRANSFERASE 7 U/L (3-33); ALBUMIN/GLOBULIN RATIO 0.9 (1.0-2.7); ANION GAP 11 (5-15); ASPARTATE AMINO TRANSFERASE 15 U/L (5-40); CALCIUM 8.4 mg/dL (8.6-10.2); CARBON DIOXIDE 27 mEQ/L (20-30); CHLORIDE 106 mEQ/L (98-107); CREATININE 0.7 mg/dL (0.5-0.9); HEMOLYSIS 1; MAGNESIUM 2.3 mg/dL (1.7-2.5); PHOSPHORUS 2.9 mg/dL (2.5-4.8); SODIUM 144 mEQ/L (135-145); TOTAL PROTEIN 6.2 g/dL (6.6-8.7)
[2016-09-23] MEDS: Docusate 100mg cap ORAL SCH ×2 (09:23→17:40)
[2016-09-23] MEDS: Carvedilol 6.25mg Tab ORAL SCH ×2 (09:24→21:03)
[2016-09-23] MEDS: Digoxin 0.125mg tab ORAL SCH (09:24)
[2016-09-23 12:00] VITALS: BP 124/62
[2016-09-23] MEDS: cefTRIAXone 1 GM in D5W 55 ML IVPB SCH (12:47)
--- NOTE | 2016-09-23 15:37 | Pulmonology Progress Note ---
Assessment/Plan Problems: (1) Status post hernia repair (2) Atrial fibrillation (3) Hypoalbuminemia (4) Abdominal pain (5) CAD (coronary artery disease) (6) HTN (hypertension) (7) Diabetes mellitus (8) ATN (acute tubular necrosis) (9) Anemia Assessment/Plan improving advance diet as tolerated afib, heart rate controlled now INR therapteutic check electrolytes. symptomatic Rx. H/h stable watch electroltyes on coumadin Subjective ROS Limited/Unobtainable: No Constitutional: Reports: no symptoms HEENT: Repors: no symptoms Respiratory: Reports: no symptoms Allergies: Coded Allergies: No Known Allergies (Unverified , 09/17/16) Objective Last 24 Hour Vital Signs Date Time Temp Pulse Resp B/P Pulse Ox O2 Delivery O2 Flow Rate FiO2 09/23/16 12:00 97.7 63 20 124/62 100 Nasal Cannula 09/23/16 09:24 80 09/23/16 09:24 80 141/56 09/23/16 08:00 97.3 80 21 141/56 97 Room Air 09/23/16 04:00 97.3 77 18 147/61 99 Nasal Cannula 2.0 09/22/16 23:10 98.2 61 18 141/61 100 Nasal Cannula 2.0 09/22/16 21:31 77 151/64 09/22/16 20:00 70 09/22/16 20:00 98.2 77 20 151/64 97 Room Air 09/22/16 16:00 98.1 78 20 130/66 100 Room Air 09/22/16 16:00 72 Intake and Output 09/22/16 09/23/16 19:00 07:00 Intake Total 1600 ml 240 ml Balance 1600 ml 240 ml Intake Oral 1600 ml 240 ml # Voids 3 5 # Bowel Movements 1 General Appearance: WD/WN HEENT: normocephalic, atraumatic Respiratory/Chest: lungs clear Cardiovascular: normal peripheral pulses, normal rate Abdomen: normal bowel sounds, soft, non tender Genitourinary: normal external genitalia Extremities: no clubbing Neurologic/Psychiatric: dictaphone mechanic II-XII 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 Laboratory Tests 09/23/16 07:30: White Blood Count 4.3L, Red Blood Count 3.00L, Hemoglobin 8.3L, Hematocrit 26.6L , Mean Corpuscular Volume 89, Mean Corpuscular Hemoglobin 27.7, Mean Corpuscular Hemoglobin Concent 31.3L, Red Cell Distribution Width 19.5H, Platelet Count 308, Mean Platelet Volume 5.9L, Neutrophils (%) (Auto) 68.4, Lymphocytes (%) (Auto) 17.5L, Monocytes (%) (Auto) 8.0, Eosinophils (%) (Auto) 5.6H, Basophils (%) (Auto) 0.6, Prothrombin Time 20.9H, Prothromb Time International Ratio 2.0H, Activated Partial Thromboplast Time 45H, Sodium Level 144, Potassium Level 4.0, Chloride Level 106, Carbon Dioxide Level 27, Anion Gap 11, Blood Urea Nitrogen 16, Creatinine 0.7, Estimat Glomerular Filtration Rate , Glucose Level 106, Calcium Level 8.4L, Phosphorus Level 2.9, Magnesium Level 2.3, Total Bilirubin 0.2, Aspartate Amino Transf (AST/SGOT) 15, Alanine Aminotransferase (ALT/SGPT) 7, Alkaline Phosphatase 123H, Total Protein 6.2L, Albumin 3.0L, Globulin 3.2, Albumin/Globulin Ratio 0.9L, Cortisol [Pending] Current Medications Medications (Trade) Dose Ordered Sig/Grisel Route PRN Reason Start Time Stop Time Status Last Admin Dose Admin Carvedilol (Coreg) 6.25 mg EVERY 12 HOURS ORAL 09/23/16 09:00 10/23/16 08:59 09/23/16 09:24 Ceftriaxone Sodium/Dextrose (Rocephin/D5W) 55 ml @ 110 mls/hr Q24H IVPB 09/23/16 13:00 09/30/16 12:59 09/23/16 12:47 Dextrose (Dextrose 50%) STAT PRN IV Hypoglycemia 09/23/16 21:45 10/23/16 21:44 Digoxin (Lanoxin) 0.125 mg DAILY ORAL 09/23/16 09:00 10/23/16 08:59 09/23/16 09:24 Docusate Sodium (Colace) 200 mg TWICE A DAY ORAL 09/23/16 09:00 10/23/16 08:59 09/23/16 09:23 Insulin Aspart (NovoLOG) BEFORE MEALS AND HS SUBQ 09/23/16 06:30 10/23/16 06:29 09/23/16 12:11 Morphine Sulfate (Morphine Sulfate) 1 mg Q4H PRN IVP pain scale 1-3 09/23/16 07:15 09/30/16 07:14 Morphine Sulfate (Morphine Sulfate) 2 mg Q4H PRN IVP pain scale 4-6 09/23/16 07:15 09/30/16 07:14 Ondansetron HCl (Zofran) 4 mg Q6H PRN IVP Nausea & Vomiting 09/23/16 07:15 10/23/16 07:14 Ranitidine HCl (Zantac) 150 mg DAILY ORAL 09/23/16 09:00 10/23/16 08:59 09/23/16 09:24 Warfarin Sodium (Coumadin) 3 mg COUMADIN ORAL 09/23/16 17:00 09/23/16 17:01 Warfarin Sodium 1 ea 1 ea DAILY PRN MISC Per rx protocol 09/23/16 09:00 10/23/16 08:59 MAC FARIAS Sep 23, 2016 15:37
[2016-09-23 16:00] VITALS: BP 136/61
--- NOTE | 2016-09-23 16:44 | Cardiac Electrophysiology PN ---
Assessment/Plan Assessment/Plan 1. Atrial fibrillation with rapid ventricular response. Continue digoxin 0.125 mg daily, Coreg 6.25 mg b.i.d. and Coumadin 2. Status post aortic valve replacement. 3. Coronary artery disease. No chest pain or SOB. 4. Small bowel obstruction, status post hernia repair per Dr. Brooks. 5. Hypertension. Continue Coreg. 6. Diabetes, will be on metformin. 7. Hyperlipidemia, on Lipitor. KANDY RN Subjective Subjective Off tele now. No chest pain or SOB. Objective Last 24 Hour Vital Signs Date Time Temp Pulse Resp B/P Pulse Ox O2 Delivery O2 Flow Rate FiO2 09/23/16 16:00 97.3 73 18 136/61 97 Nasal Cannula 6.0 09/23/16 12:00 97.7 63 20 124/62 100 Nasal Cannula 09/23/16 09:24 80 09/23/16 09:24 80 141/56 09/23/16 08:00 97.3 80 21 141/56 97 Room Air 09/23/16 04:00 97.3 77 18 147/61 99 Nasal Cannula 2.0 09/22/16 23:10 98.2 61 18 141/61 100 Nasal Cannula 2.0 09/22/16 21:31 77 151/64 09/22/16 20:00 70 09/22/16 20:00 98.2 77 20 151/64 97 Room Air Intake and Output 09/22/16 09/23/16 19:00 07:00 Intake Total 1600 ml 240 ml Balance 1600 ml 240 ml Intake Oral 1600 ml 240 ml # Voids 3 5 # Bowel Movements 1 Laboratory Tests Test 09/23/16 07:30 White Blood Count 4.3 K/UL (4.8-10.8) L Red Blood Count 3.00 M/UL (4.20-5.40) L Hemoglobin 8.3 G/DL (12.0-16.0) L Hematocrit 26.6 % (37.0-47.0) L Mean Corpuscular Volume 89 FL (80-99) Mean Corpuscular Hemoglobin 27.7 PG (27.0-31.0) Mean Corpuscular Hemoglobin Concent 31.3 G/DL (32.0-36.0) L Red Cell Distribution Width 19.5 % (11.6-14.8) H Platelet Count 308 K/UL (150-450) Mean Platelet Volume 5.9 FL (6.5-10.1) L Neutrophils (%) (Auto) 68.4 % (45.0-75.0) Lymphocytes (%) (Auto) 17.5 % (20.0-45.0) L Monocytes (%) (Auto) 8.0 % (1.0-10.0) Eosinophils (%) (Auto) 5.6 % (0.0-3.0) H Basophils (%) (Auto) 0.6 % (0.0-2.0) Prothrombin Time 20.9 SEC (9.30-11.50) H Prothromb Time International Ratio 2.0 (0.9-1.1) H Activated Partial Thromboplast Time 45 SEC (23-33) H Sodium Level 144 mEQ/L (135-145) Potassium Level 4.0 mEQ/L (3.4-4.9) Chloride Level 106 mEQ/L (98-107) Carbon Dioxide Level 27 mEQ/L (20-30) Anion Gap 11 (5-15) Blood Urea Nitrogen 16 mg/dL (7-23) Creatinine 0.7 mg/dL (0.5-0.9) Estimat Glomerular Filtration Rate mL/min (>60) Glucose Level 106 mg/dL (74-106) Calcium Level 8.4 mg/dL (8.6-10.2) L Phosphorus Level 2.9 mg/dL (2.5-4.8) Magnesium Level 2.3 mg/dL (1.7-2.5) Total Bilirubin 0.2 mg/dL (0.0-1.2) Aspartate Amino Transf (AST/SGOT) 15 U/L (5-40) Alanine Aminotransferase (ALT/SGPT) 7 U/L (3-33) Alkaline Phosphatase 123 U/L (35-104) H Total Protein 6.2 g/dL (6.6-8.7) L Albumin 3.0 g/dL (3.5-5.2) L Globulin 3.2 g/dL Albumin/Globulin Ratio 0.9 (1.0-2.7) L Cortisol Pending Objective HEAD AND NECK: no JVD LUNGS: Clear. CARDIOVASCULAR: Irregular S1, S2 with no gallop or murmur. ABDOMEN: Soft and nontender and is postop. EXTREMITIES: No pitting edema. AUTUMN BERRY Sep 23, 2016 16:44
[2016-09-23] MEDS ORDERED: Warfarin Sodium 3mg ORAL SCH (17:00)
--- NOTE | 2016-09-23 18:43 | Internal Med Progress Note ---
Subjective Date of Service: Sep 23, 2016 Physician Name Nikki Taylor Attending Physician Kobi Real MD Current Medications Medications (Trade) Dose Ordered Sig/Grisel Route PRN Reason Start Time Stop Time Status Last Admin Dose Admin Carvedilol (Coreg) 6.25 mg EVERY 12 HOURS ORAL 09/23/16 09:00 10/23/16 08:59 09/23/16 09:24 Ceftriaxone Sodium/Dextrose (Rocephin/D5W) 55 ml @ 110 mls/hr Q24H IVPB 09/23/16 13:00 09/30/16 12:59 09/23/16 12:47 Dextrose (Dextrose 50%) STAT PRN IV Hypoglycemia 09/23/16 21:45 10/23/16 21:44 Digoxin (Lanoxin) 0.125 mg DAILY ORAL 09/23/16 09:00 10/23/16 08:59 09/23/16 09:24 Docusate Sodium (Colace) 200 mg TWICE A DAY ORAL 09/23/16 09:00 10/23/16 08:59 09/23/16 17:40 Insulin Aspart (NovoLOG) BEFORE MEALS AND HS SUBQ 09/23/16 06:30 10/23/16 06:29 09/23/16 16:43 Morphine Sulfate (Morphine Sulfate) 1 mg Q4H PRN IVP pain scale 1-3 09/23/16 07:15 09/30/16 07:14 Morphine Sulfate (Morphine Sulfate) 2 mg Q4H PRN IVP pain scale 4-6 09/23/16 07:15 09/30/16 07:14 Ondansetron HCl (Zofran) 4 mg Q6H PRN IVP Nausea & Vomiting 09/23/16 07:15 10/23/16 07:14 Ranitidine HCl (Zantac) 150 mg DAILY ORAL 09/23/16 09:00 10/23/16 08:59 09/23/16 09:24 Warfarin Sodium 1 ea 1 ea DAILY PRN MISC Per rx protocol 09/23/16 09:00 10/23/16 08:59 Allergies: Coded Allergies: No Known Allergies (Unverified , 09/17/16) ROS Limited/Unobtainable: No Constitutional: Reports: no symptoms HEENT: Reports: no symptoms Cardiovascular: Reports: no symptoms Respiratory: Reports: no symptoms Gastrointestinal/Abdominal: Reports: abdominal pain Genitourinary: Reports: no symptoms Neurologic/Psychiatric: Reports: no symptoms Subjective 70 YO F admitted with small bowel obstruction. Cover for Int Sunny-Dr Real. S/ P Sm bowel resection 09/18/16. Tolerating diabetic diet. 3 bowel movements recorded Objective Last Vital Signs Date Time Temp Pulse Resp B/P Pulse Ox O2 Delivery O2 Flow Rate FiO2 09/23/16 16:00 97.3 73 18 136/61 97 Nasal Cannula 6.0 09/20/16 06:40 32 Laboratory Tests Test 09/23/16 07:30 White Blood Count 4.3 K/UL (4.8-10.8) L Red Blood Count 3.00 M/UL (4.20-5.40) L Hemoglobin 8.3 G/DL (12.0-16.0) L Hematocrit 26.6 % (37.0-47.0) L Mean Corpuscular Volume 89 FL (80-99) Mean Corpuscular Hemoglobin 27.7 PG (27.0-31.0) Mean Corpuscular Hemoglobin Concent 31.3 G/DL (32.0-36.0) L Red Cell Distribution Width 19.5 % (11.6-14.8) H Platelet Count 308 K/UL (150-450) Mean Platelet Volume 5.9 FL (6.5-10.1) L Neutrophils (%) (Auto) 68.4 % (45.0-75.0) Lymphocytes (%) (Auto) 17.5 % (20.0-45.0) L Monocytes (%) (Auto) 8.0 % (1.0-10.0) Eosinophils (%) (Auto) 5.6 % (0.0-3.0) H Basophils (%) (Auto) 0.6 % (0.0-2.0) Prothrombin Time 20.9 SEC (9.30-11.50) H Prothromb Time International Ratio 2.0 (0.9-1.1) H Activated Partial Thromboplast Time 45 SEC (23-33) H Sodium Level 144 mEQ/L (135-145) Potassium Level 4.0 mEQ/L (3.4-4.9) Chloride Level 106 mEQ/L (98-107) Carbon Dioxide Level 27 mEQ/L (20-30) Anion Gap 11 (5-15) Blood Urea Nitrogen 16 mg/dL (7-23) Creatinine 0.7 mg/dL (0.5-0.9) Estimat Glomerular Filtration Rate mL/min (>60) Glucose Level 106 mg/dL (74-106) Calcium Level 8.4 mg/dL (8.6-10.2) L Phosphorus Level 2.9 mg/dL (2.5-4.8) Magnesium Level 2.3 mg/dL (1.7-2.5) Total Bilirubin 0.2 mg/dL (0.0-1.2) Aspartate Amino Transf (AST/SGOT) 15 U/L (5-40) Alanine Aminotransferase (ALT/SGPT) 7 U/L (3-33) Alkaline Phosphatase 123 U/L (35-104) H Total Protein 6.2 g/dL (6.6-8.7) L Albumin 3.0 g/dL (3.5-5.2) L Globulin 3.2 g/dL Albumin/Globulin Ratio 0.9 (1.0-2.7) L Cortisol Pending Intake and Output 09/22/16 09/23/16 19:00 07:00 Intake Total 1600 ml 240 ml Balance 1600 ml 240 ml Intake Oral 1600 ml 240 ml # Voids 3 5 # Bowel Movements 1 Objective General Appearance: mild distress, lethargic, thin EENT: PERRL/EOMI, normal ENT inspection Neck: non-tender, normal alignment, supple, normal inspection Cardiovascular: normal peripheral pulses, normal rate, regular rhythm, no gallop/murmur, no JVD Respiratory/Chest: chest wall non-tender, lungs clear, normal breath sounds, no respiratory distress, no accessory muscle use Abdomen: no organomegaly, no mass, decreased bowel sounds, distended, tender Extremities: normal range of motion, non-tender Neurologic: bead wire insulator II-XII 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, no motor/sensory deficits Skin: normal pigmentation, warm/dry Assessment/Plan Problem List: (1) Osteoporosis (2) Hypercholesteremia (3) Small bowel obstruction Assessment & Plan: S/P right femoral hernia repair, exp laparotomy and sm bowel resection 09/18/16. See surgery note. (4) Inguinal hernia (5) HTN (hypertension) Assessment & Plan: Cont coreg (6) Diabetes mellitus Assessment & Plan: Cont novolog sliding scale. (7) Atrial fibrillation Assessment & Plan: See cardiology note. Decrease coreg. Continue digoxin. Assessment/Plan Discharge planning NIKKI TAYLOR Sep 23, 2016 18:43
[2016-09-23 19:00] VITALS: BP 142/71
[2016-09-24] VITALS: BP 138/60
[2016-09-24 04:00] VITALS: BP 138/61
[2016-09-24] MEDS: NovoLOG Insulin Flexpen SUBQ SCH ×4 (06:30→21:04)
[2016-09-24 07:54] LABS: INR 1.7 (0.9-1.1); PROTHROMBIN TIME 17.3 SEC (9.30-11.50)
[2016-09-24 08:00] VITALS: BP 120/57
[2016-09-24] MEDS: Digoxin 0.125mg tab ORAL SCH (08:57)
[2016-09-24] MEDS: Carvedilol 6.25mg Tab ORAL SCH ×2 (08:57→21:01)
[2016-09-24] MEDS: Docusate 100mg cap ORAL SCH ×2 (08:57→18:00)
--- NOTE | 2016-09-24 11:12 | Internal Med Progress Note ---
Subjective Date of Service: Sep 24, 2016 Physician Name Sher Taylor Attending Physician Kobi Real MD Current Medications Medications (Trade) Dose Ordered Sig/Grisel Route PRN Reason Start Time Stop Time Status Last Admin Dose Admin Carvedilol (Coreg) 6.25 mg EVERY 12 HOURS ORAL 09/23/16 09:00 10/23/16 08:59 09/24/16 08:57 Ceftriaxone Sodium/Dextrose (Rocephin/D5W) 55 ml @ 110 mls/hr Q24H IVPB 09/23/16 13:00 09/30/16 12:59 09/23/16 12:47 Dextrose (Dextrose 50%) STAT PRN IV Hypoglycemia 09/23/16 21:45 10/23/16 21:44 Digoxin (Lanoxin) 0.125 mg DAILY ORAL 09/23/16 09:00 10/23/16 08:59 09/24/16 08:57 Docusate Sodium (Colace) 200 mg TWICE A DAY ORAL 09/23/16 09:00 10/23/16 08:59 09/24/16 08:57 Insulin Aspart (NovoLOG) BEFORE MEALS AND HS SUBQ 09/23/16 06:30 10/23/16 06:29 09/23/16 21:06 Morphine Sulfate (Morphine Sulfate) 1 mg Q4H PRN IVP pain scale 1-3 09/23/16 07:15 09/30/16 07:14 Morphine Sulfate (Morphine Sulfate) 2 mg Q4H PRN IVP pain scale 4-6 09/23/16 07:15 09/30/16 07:14 Ondansetron HCl (Zofran) 4 mg Q6H PRN IVP Nausea & Vomiting 09/23/16 07:15 10/23/16 07:14 Ranitidine HCl (Zantac) 150 mg DAILY ORAL 09/23/16 09:00 10/23/16 08:59 09/24/16 08:57 Warfarin Sodium (Coumadin) 5 mg COUMADIN ONCE ORAL 09/24/16 17:00 09/24/16 17:01 Warfarin Sodium 1 ea 1 ea DAILY PRN MISC Per rx protocol 09/23/16 09:00 10/23/16 08:59 Allergies: Coded Allergies: No Known Allergies (Unverified , 09/17/16) ROS Limited/Unobtainable: No Constitutional: Reports: no symptoms HEENT: Reports: no symptoms Cardiovascular: Reports: no symptoms Respiratory: Reports: no symptoms Gastrointestinal/Abdominal: Reports: abdominal pain Genitourinary: Reports: no symptoms Neurologic/Psychiatric: Reports: no symptoms Subjective 70 YO F admitted with small bowel obstruction. Cover for Int Med-Dr Real. S/ P Sm bowel resection 09/18/16. Tolerating diabetic diet. 1 bowel movement recorded. Await physical therapy eval. Objective Last Vital Signs Date Time Temp Pulse Resp B/P Pulse Ox O2 Delivery O2 Flow Rate FiO2 09/24/16 08:57 80 09/24/16 08:57 120/57 09/24/16 08:00 97.5 18 100 Nasal Cannula 2.0 09/20/16 06:40 32 Laboratory Tests Test 09/24/16 06:30 Prothrombin Time 17.3 SEC (9.30-11.50) H Prothromb Time International Ratio 1.7 (0.9-1.1) H Intake and Output 09/23/16 09/24/16 19:00 07:00 Intake Total 415 ml 240 ml Balance 415 ml 240 ml Intake Oral 360 ml 240 ml IV Total 55 ml # Voids 3 5 # Bowel Movements 2 Objective General Appearance: mild distress, lethargic, thin EENT: PERRL/EOMI, normal ENT inspection Neck: non-tender, normal alignment, supple, normal inspection Cardiovascular: normal peripheral pulses, normal rate, regular rhythm, no gallop/murmur, no JVD Respiratory/Chest: chest wall non-tender, lungs clear, normal breath sounds, no respiratory distress, no accessory muscle use Abdomen: no organomegaly, no mass, decreased bowel sounds, distended, tender Extremities: normal range of motion, non-tender 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 See surgery note. (4) Inguinal hernia (5) HTN (hypertension) Assessment & Plan: Cont coreg (6) Diabetes mellitus Assessment & Plan: Cont novolog sliding scale. (7) Atrial fibrillation Assessment & Plan: See cardiology note. Decrease coreg. Continue digoxin. Status: progressing Assessment/Plan Discharge planning: home health SHER TAYLOR Sep 24, 2016 11:12
[2016-09-24 11:59] VITALS: BP 134/65
[2016-09-24] MEDS: cefTRIAXone 1 GM in D5W 55 ML IVPB SCH (12:34)
--- NOTE | 2016-09-24 15:32 | Cardiac Electrophysiology PN ---
Assessment/Plan Assessment/Plan 1. Atrial fibrillation with rapid ventricular response. Continue digoxin 0.125 mg daily, Coreg 6.25 mg b.i.d. and Coumadin. INR 1.7 today. 2. Status post aortic valve replacement. 3. Coronary artery disease. No chest pain or SOB. 4. Small bowel obstruction, status post hernia repair per Dr. Brooks. 5. Hypertension. Continue Coreg. 6. Diabetes, will be on metformin. 7. Hyperlipidemia, on Lipitor. DW daughter. Subjective Subjective Comfortable in NAD. No chest pain or SOB. Objective Last 24 Hour Vital Signs Date Time Temp Pulse Resp B/P Pulse Ox O2 Delivery O2 Flow Rate FiO2 09/24/16 11:59 97.9 70 18 134/65 100 Nasal Cannula 2.0 09/24/16 08:57 80 09/24/16 08:57 80 120/57 09/24/16 08:00 97.5 80 18 120/57 100 Nasal Cannula 2.0 09/24/16 04:00 97.2 71 18 138/61 99 Nasal Cannula 2.0 09/24/16 00:00 97.7 69 18 138/60 100 Nasal Cannula 2.0 09/23/16 21:03 66 137/59 09/23/16 19:00 97.8 62 18 142/71 98 Room Air 09/23/16 16:00 97.3 73 18 136/61 97 Nasal Cannula 6.0 Intake and Output 09/23/16 09/24/16 19:00 07:00 Intake Total 415 ml 240 ml Balance 415 ml 240 ml Intake Oral 360 ml 240 ml IV Total 55 ml # Voids 3 5 # Bowel Movements 2 Laboratory Tests Test 09/24/16 06:30 Prothrombin Time 17.3 SEC (9.30-11.50) H Prothromb Time International Ratio 1.7 (0.9-1.1) H Objective HEAD AND NECK: no JVD LUNGS: Clear. CARDIOVASCULAR: Irregular S1, S2 with no gallop or murmur. ABDOMEN: Soft and nontender and is postop. EXTREMITIES: No pitting edema. AUTUMN BERRY Sep 24, 2016 15:32
[2016-09-24 16:00] VITALS: BP 133/69
[2016-09-24] MEDS ORDERED: Warfarin Sodium 5mg ORAL ONE (17:00)
--- NOTE | 2016-09-24 17:24 | Pulmonology Progress Note ---
Assessment/Plan Problems: (1) Status post hernia repair (2) Atrial fibrillation (3) Hypoalbuminemia (4) Abdominal pain (5) CAD (coronary artery disease) (6) HTN (hypertension) (7) Diabetes mellitus (8) ATN (acute tubular necrosis) (9) Anemia Assessment/Plan wants to go home improving advance diet as tolerated afib, heart rate controlled now INR therapteutic check electrolytes. symptomatic Rx. H/h stable watch electroltyes on coumadin dc home in am Subjective ROS Limited/Unobtainable: No Interval Events: walking with a walker in the hallway Allergies: Coded Allergies: No Known Allergies (Unverified , 09/17/16) Objective Last 24 Hour Vital Signs Date Time Temp Pulse Resp B/P Pulse Ox O2 Delivery O2 Flow Rate FiO2 09/24/16 16:00 97.3 86 19 133/69 100 Nasal Cannula 2.0 09/24/16 11:59 97.9 70 18 134/65 100 Nasal Cannula 2.0 09/24/16 08:57 80 09/24/16 08:57 80 120/57 09/24/16 08:00 97.5 80 18 120/57 100 Nasal Cannula 2.0 09/24/16 04:00 97.2 71 18 138/61 99 Nasal Cannula 2.0 09/24/16 00:00 97.7 69 18 138/60 100 Nasal Cannula 2.0 09/23/16 21:03 66 137/59 09/23/16 19:00 97.8 62 18 142/71 98 Room Air Intake and Output 09/23/16 09/24/16 19:00 07:00 Intake Total 415 ml 240 ml Balance 415 ml 240 ml Intake Oral 360 ml 240 ml IV Total 55 ml # Voids 3 5 # Bowel Movements 2 General Appearance: cachetic HEENT: normocephalic, atraumatic Respiratory/Chest: chest wall non-tender, lungs clear Cardiovascular: normal peripheral pulses, normal rate Abdomen: normal bowel sounds, soft, non tender Genitourinary: normal external genitalia Extremities: no clubbing 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, no motor/sensory deficits Lymphatic: no neck adenopathy Laboratory Tests 09/24/16 06:30: Prothrombin Time 17.3H, Prothromb Time International Ratio 1.7H Current Medications Medications (Trade) Dose Ordered Sig/Grisel Route PRN Reason Start Time Stop Time Status Last Admin Dose Admin Carvedilol (Coreg) 6.25 mg EVERY 12 HOURS ORAL 09/23/16 09:00 10/23/16 08:59 09/24/16 08:57 Ceftriaxone Sodium/Dextrose (Rocephin/D5W) 55 ml @ 110 mls/hr Q24H IVPB 09/23/16 13:00 09/30/16 12:59 09/24/16 12:34 Dextrose (Dextrose 50%) STAT PRN IV Hypoglycemia 09/23/16 21:45 10/23/16 21:44 Digoxin (Lanoxin) 0.125 mg DAILY ORAL 09/23/16 09:00 10/23/16 08:59 09/24/16 08:57 Docusate Sodium (Colace) 200 mg TWICE A DAY ORAL 09/23/16 09:00 10/23/16 08:59 09/24/16 08:57 Insulin Aspart (NovoLOG) BEFORE MEALS AND HS SUBQ 09/23/16 06:30 10/23/16 06:29 09/24/16 12:12 Morphine Sulfate (Morphine Sulfate) 1 mg Q4H PRN IVP pain scale 1-3 09/23/16 07:15 09/30/16 07:14 Morphine Sulfate (Morphine Sulfate) 2 mg Q4H PRN IVP pain scale 4-6 09/23/16 07:15 09/30/16 07:14 Ondansetron HCl (Zofran) 4 mg Q6H PRN IVP Nausea & Vomiting 09/23/16 07:15 10/23/16 07:14 Ranitidine HCl (Zantac) 150 mg DAILY ORAL 09/23/16 09:00 10/23/16 08:59 09/24/16 08:57 Warfarin Sodium 1 ea 1 ea DAILY PRN MISC Per rx protocol 09/23/16 09:00 10/23/16 08:59 MAC FARIAS Sep 24, 2016 17:24
[2016-09-24 20:00] VITALS: BP 151/79
[2016-09-25 00:14] VITALS: BP 119/56
[2016-09-25 04:00] VITALS: BP 132/86
[2016-09-25] MEDS: NovoLOG Insulin Flexpen SUBQ SCH ×2 (06:30→11:30)
[2016-09-25 07:11] LABS: INR 1.6 (0.9-1.1); PROTHROMBIN TIME 16.4 SEC (9.30-11.50)
[2016-09-25 08:00] VITALS: BP 133/66
[2016-09-25] MEDS: Carvedilol 6.25mg Tab ORAL SCH (08:51)
[2016-09-25] MEDS: Digoxin 0.125mg tab ORAL SCH (08:52)
[2016-09-25] MEDS: Docusate 100mg cap ORAL SCH (09:00)
--- NOTE | 2016-09-25 10:53 | 48 Hour Post Anesthesia Eval ---
Post Anesthesia Evaluation Procedure: Repair Femoral Hernia, Laparotomy, Small Bowel Resection Date of Evaluation: Sep 20, 2016 Time of Evaluation: 08:00 Blood Pressure Systolic: 130 0: 60 Pulse Rate: 73 Respiratory Rate: 18 Temperature (Fahrenheit): 97.7 O2 Sat by Pulse Oximetry: 96 Airway: patent Nausea: No Vomiting: No Pain Intensity: 2 Hydration Status: adequate Cardiopulmonary Status: at baseline Mental Status/LOC: patient returned to baseline Post-Anesthesia Complications: 0 Follow-up care needed: N/A - furrther care as per primary team LISBETH SINCLAIR M.D. Sep 25, 2016 10:53
[2016-09-25 12:00] VITALS: BP 120/62
[2016-09-25] MEDS: cefTRIAXone 1 GM in D5W 55 ML IVPB SCH (12:59)
--- NOTE | 2016-09-25 15:43 | Cardiac Electrophysiology PN ---
Assessment/Plan Assessment/Plan 1. Atrial fibrillation with rapid ventricular response. Continue digoxin 0.125 mg daily, Coreg 6.25 mg b.i.d. and Coumadin per pharmacy. INR 1.6 today. 2. Status post prosthetic aortic valve replacement. On Coumadin. 3. Coronary artery disease. No chest pain or SOB. 4. Small bowel obstruction, status post hernia repair per Dr. Brooks. 5. Hypertension. Continue Coreg. 6. Diabetes, will be on metformin. 7. Hyperlipidemia, on Lipitor. KANDY RN Subjective Subjective Comfortable in NAD. No chest pain or SOB.Off tele.DC planning today. Objective Last 24 Hour Vital Signs Date Time Temp Pulse Resp B/P Pulse Ox O2 Delivery O2 Flow Rate FiO2 09/25/16 12:00 98.1 69 18 120/62 98 Room Air 09/25/16 10:53 73 18 96 09/25/16 08:52 86 09/25/16 08:51 86 133/66 09/25/16 08:00 97.5 86 18 133/66 95 Room Air 09/25/16 04:00 98.2 97 21 132/86 98 Room Air 09/25/16 00:14 97.7 71 21 119/56 98 Room Air 09/24/16 21:01 97 151/79 09/24/16 20:00 97.7 97 18 151/79 97 Room Air 09/24/16 16:00 97.3 86 19 133/69 100 Nasal Cannula 2.0 Respiratory/Chest: no respiratory distress Intake and Output 09/24/16 09/25/16 19:00 07:00 Intake Total 295 ml 570 ml Balance 295 ml 570 ml Intake Oral 240 ml 570 ml IV Total 55 ml # Voids 4 # Bowel Movements 4 1 Laboratory Tests Test 09/25/16 05:45 Prothrombin Time 16.4 SEC (9.30-11.50) H Prothromb Time International Ratio 1.6 (0.9-1.1) H Objective HEAD AND NECK: no JVD LUNGS: Clear. CARDIOVASCULAR: Irregular S1, Metallic S2 with no gallop or murmur. ABDOMEN: Soft and nontender and is postop. EXTREMITIES: No pitting edema. AUTUMN BERRY Sep 25, 2016 15:43
[2016-09-25 16:00] VITALS: BP 140/69
--- NOTE | 2016-09-25 16:05 | Discharge Summary ---
Discharge Summary Hospital Course Date of Admission Sep 18, 2016 at 02:54 Date of Discharge Admitting Diagnosis Small bowel obstruction ARY Galloway is a 70 year old female who was admitted on Sep 18, 2016 at 02: 54 for Small Bowel Obstruction Hospital Course Dictated for Int Med - Dr Real no. [id number]. Discharge Discharge Disposition Patient was discharged to Discharge Diagnoses: NIKKI TAYLOR Sep 25, 2016 16:05
[2016-09-25] MEDS ORDERED: Warfarin Sodium 5mg ORAL ONE (17:00)
--- NOTE | 2016-09-25 17:12 | Pulmonology Progress Note ---
Assessment/Plan Problems: (1) Status post hernia repair (2) Atrial fibrillation (3) Hypoalbuminemia (4) Abdominal pain (5) CAD (coronary artery disease) (6) HTN (hypertension) (7) Diabetes mellitus (8) ATN (acute tubular necrosis) (9) Anemia Assessment/Plan wants to go home improving advance diet as tolerated afib, heart rate controlled now INR therapteutic check electrolytes. symptomatic Rx. H/h stable watch electroltyes on coumadin stable to go home Subjective ROS Limited/Unobtainable: No Interval Events: improving Allergies: Coded Allergies: No Known Allergies (Unverified , 09/17/16) Objective Last 24 Hour Vital Signs Date Time Temp Pulse Resp B/P Pulse Ox O2 Delivery O2 Flow Rate FiO2 09/25/16 16:00 97.7 82 17 140/69 97 Room Air 09/25/16 12:00 98.1 69 18 120/62 98 Room Air 09/25/16 10:53 73 18 96 09/25/16 08:52 86 09/25/16 08:51 86 133/66 09/25/16 08:00 97.5 86 18 133/66 95 Room Air 09/25/16 04:00 98.2 97 21 132/86 98 Room Air 09/25/16 00:14 97.7 71 21 119/56 98 Room Air 09/24/16 21:01 97 151/79 09/24/16 20:00 97.7 97 18 151/79 97 Room Air Intake and Output 09/24/16 09/25/16 19:00 07:00 Intake Total 295 ml 570 ml Balance 295 ml 570 ml Intake Oral 240 ml 570 ml IV Total 55 ml # Voids 4 # Bowel Movements 4 1 General Appearance: WD/WN HEENT: normocephalic, atraumatic Abdomen: normal bowel sounds, soft, non tender Extremities: no cyanosis Skin: no rash Laboratory Tests 09/25/16 05:45: Prothrombin Time 16.4H, Prothromb Time International Ratio 1.6H Current Medications Medications (Trade) Dose Ordered Sig/Grisel Route PRN Reason Start Time Stop Time Status Last Admin Dose Admin Carvedilol (Coreg) 6.25 mg EVERY 12 HOURS ORAL 09/23/16 09:00 10/23/16 08:59 09/25/16 08:51 Ceftriaxone Sodium/Dextrose (Rocephin/D5W) 55 ml @ 110 mls/hr Q24H IVPB 09/23/16 13:00 09/30/16 12:59 09/25/16 12:59 Dextrose (Dextrose 50%) STAT PRN IV Hypoglycemia 09/23/16 21:45 10/23/16 21:44 Digoxin (Lanoxin) 0.125 mg DAILY ORAL 09/23/16 09:00 10/23/16 08:59 09/25/16 08:52 Docusate Sodium (Colace) 200 mg TWICE A DAY ORAL 09/23/16 09:00 10/23/16 08:59 09/24/16 08:57 Insulin Aspart (NovoLOG) BEFORE MEALS AND HS SUBQ 09/23/16 06:30 10/23/16 06:29 09/24/16 21:04 Morphine Sulfate (Morphine Sulfate) 1 mg Q4H PRN IVP pain scale 1-3 09/23/16 07:15 09/30/16 07:14 Morphine Sulfate (Morphine Sulfate) 2 mg Q4H PRN IVP pain scale 4-6 09/23/16 07:15 09/30/16 07:14 Ondansetron HCl (Zofran) 4 mg Q6H PRN IVP Nausea & Vomiting 09/23/16 07:15 10/23/16 07:14 Ranitidine HCl (Zantac) 150 mg DAILY ORAL 09/23/16 09:00 10/23/16 08:59 09/25/16 08:52 Warfarin Sodium 1 ea 1 ea DAILY PRN MISC Per rx protocol 09/23/16 09:00 10/23/16 08:59 MAC FARIAS Sep 25, 2016 17:12
[2016-09-25] MEDS ORDERED: NS 275ml ONE ×2 (17:50)
[2016-09-25] MEDS ORDERED: Tubing IV Secondary IV ONE ×2 (17:50)
--- NOTE | 2016-09-26 10:57 | Discharge Summary ---
DATE OF ADMISSION: 09/18/2016 DATE OF DISCHARGE: 09/25/2016 ADMITTING DIAGNOSES: 1. Abdominal pain. 2. Hypertension. 3. Diabetes type 2. 4. Atrial fibrillation. 5. Cerebrovascular accident. 6. Osteoporosis. 7. Hypercholesterolemia. DISCHARGE DIAGNOSES: 1. Small bowel obstruction. 2. Right femoral strangulated hernia. 3. Hypertension. 4. Diabetes type 2. 5. Atrial fibrillation. 6. Cerebrovascular accident in 1990. 7. Osteoporosis. 8. Hypercholesterolemia. HOSPITAL COURSE: 1. Small bowel obstruction/abdominal pain. She has a general surgery. Consultation was obtained with Dr. Brooks. The patient underwent right femoral hernia repair and exploratory laparotomy with small bowel resection on 09/18/2016. The patient continued to recuperate well during hospitalization. The patient is to follow up with Dr. Brooks in one week. 2. Right femoral strangulated hernia. Please see small bowel obstruction as above. 3. Abdominal pain secondary to small-bowel obstruction as above. The patient has to follow up with Dr. Brooks as an outpatient. 4. Hypertension. The patient remained. On carvedilol 6.25 mg p.o. twice daily. The patient has to follow up with her primary care physician in one week. 5. Diabetes type 2. The patient was placed on a NovoLog sliding scale. Metformin 850 mg three times daily was suspended during surgery. This has been restarted. Patient has to follow up with her primary care physician in one week. 6. Atrial fibrillation. Cardiology consultation was obtained, Dr. Osmany Carmona. The patient remained on Coumadin during the hospitalization. The patient has to follow up with her primary care physician in one week. 7. History of cerebrovascular disease. 8. Osteoporosis. 9. Hypercholesterolemia. The patient remained on simvastatin 20 mg one tablet p.o. daily . The patient has follow up with primary care physician in one week. DISCHARGE MEDICATIONS: Please refer to discharge medication list. DISCHARGE INSTRUCTIONS: The patient is discharged home today on 09/23/2016. The patient is to receive home health via [facility]. Sher Hansen M.D. DR: MARY JOB#: [id number] CC:
== END 2016-09-25 17:51 | disposition home health service (06) | DRG 329 ==
LOC: EDBD 23:35 → EMR 23:49 → 3E 09-18 02:54 → EDBEDREQ 09-18 10:45 → 2E 09-18 21:18 → 4E 09-23 03:20
PROC: 0DB80ZZ Excision of Small Intestine, Open Approach (ICD-10-PCS; principal; 2016-09-18 14:45)
PROC: 0YU70JZ Supplement Right Femoral Region with Synthetic Substitute, Open Approach (ICD-10-PCS; principal; 2016-09-18 14:45)
DX: K41.30 Unilateral femoral hernia, with obstruction, without gangrene, not specified as recurrent (principal); N17.0 Acute kidney failure with tubular necrosis; E88.09 Other disorders of plasma-protein metabolism, not elsewhere classified; E11.9 Type 2 diabetes mellitus without complications; I10 Essential (primary) hypertension; D64.9 Anemia, unspecified; I48.91 Unspecified atrial fibrillation; Z95.2 Presence of prosthetic heart valve; I25.10 Atherosclerotic heart disease of native coronary artery without angina pectoris; M81.0 Age-related osteoporosis without current pathological fracture; Z79.01 Long term (current) use of anticoagulants; Z86.73 Personal history of transient ischemic attack (TIA), and cerebral infarction without residual deficits; E78.00 Pure hypercholesterolemia, unspecified
CPT/HCPCS: 36415; 74000; 74177; 76775; 80048; 80053; 80162; 81001; 81003; 82378; 82436; 82533; 82550; 82607; 82746; 82962; 83540; 83550; 83615; 83690; 83735; 83930; 83935; 84100; 84133; 84300; 84439; 84443; 84481; 84484; 84550; 85007; 85025; 85044; 85060; 85610; 85651; 85730; 87040; 87081; 87086; 87181; 89050; 93005; 94003; 94150; 94760; 96374; 96375; J1815; J2180; J2250; J2405; J2710

== ENCOUNTER 2017-02-27 17:04 | Inpatient (IN) | payer MEDICARE, MEDICAID ==
[2017-02-27] VITALS (15 sets, daily range): BP systolic 123–151; BP diastolic 29–100
[~2017-02-27] VITALS: Ht 157.5 cm; Wt 49.9 kg
[2017-02-27] MEDS ORDERED: Atropine Sulfate 0.4mg/ml inj 20ML IVP ONE ×2 (17:15→18:30)
[2017-02-27] MEDS ORDERED: Glucagon 1mg Inj IV ONE (17:45)
--- NOTE | 2017-02-27 18:34 | Emergency Room Report ---
History of Present Illness General Chief Complaint: Dyspnea/Respdistress Source: Family Member, Medical Record, EMS Present Illness HPI Patient presents via EMS with h/o hypotension noted by visiting RN. Blood pressure was 80. Paramedics began fluids. Patient less responsive according to family. No h/o fevers or c/o pain. No focal weakness. H/O mechanical mitral valve on coumadin. Easy bruising. H/O atrial fibrillation, diabetes. On digoxin. Post CVA with some expressive aphasia (1990). Post rectal bleed after hemorrhoidectomy (2015). No recent bleeding. No dysuria, abdominal pain, headache, head trauma. Allergies: Coded Allergies: No Known Allergies (Unverified , 09/17/16) Patient History Past Medical History: see triage record, old chart reviewed Past Surgical History: other - mitral valve replacement Social History: Denies: smoking Social History Narrative with daughter Reviewed Nursing Documentation: PMH: Agreed, PSxH: Agreed Nursing Documentation-PMH Hx Cardiac Problems: Yes - Anorectal surgery, multiple valve replacements Hx Hypertension: Yes Hx Diabetes: Yes Hx Cancer: No Hx Gastrointestinal Problems: No - Hemorrhoid Hx Cerebrovascular Accident: Yes - 1990 Hx Speech Problem: Yes - unable express self,limited conversation Hx Dizziness: Yes - 09/09 0400 Hx Weakness: Yes - right side slightly weaker than left side body Review of Systems All Other Systems: negative except mentioned in HPI Physical Exam Vital Signs Date Time Temp Pulse Resp B/P Pulse Ox O2 Delivery O2 Flow Rate FiO2 02/27/17 17:09 97.9 80 24 168/89 99 Room Air Sp02 EP Interpretation: reviewed, normal General Appearance: no apparent distress, thin, other - GCS 14, lethargic Head: normocephalic Eyes: bilateral eye PERRL, bilateral eye normal inspection ENT: moist mucus membranes Neck: supple Respiratory: lungs clear, normal breath sounds Cardiovascular #1: no edema, bradycardia, other - mechanical valve, no M Cardiovascular #2: 2+ radial (L) Gastrointestinal: normal inspection, non tender, no mass, non-distended, abnormal bowel sounds - decreased Musculoskeletal: back normal, normal range of motion Neurologic: gut snatcher III-XII nml as tested, motor strength/tone normal, DTRs symmetric, sensory intact, other - lethargic, oriented - X2, follows commands Psychiatric: depressed affect Skin: normal inspection, warm/dry, other - sallo and some ecchymoses Procedures Critical Care Time Critical Care Time Total Critical Care Time: 60 min bedside evaluation and treatment excludes procedures (EKG). Reason for critical care: symptomatic bradycardia Possible complications: hypotension, hypertension, SC, shock, arrhythmias, metabolic acidosis, end organ damage, respiratory failure. Interventions: atropine, repeated exams, TC pacing attempt, isuprel, glucagon Course: Patient with ALOC and hypotension in field. Severe bradycardia. Initial response to atropine. Return of bradycardia with 2 more doses of atropine, not responsive. Glucagon, not respond. Trial TC pacing, not tolerated and not responsive. Discussion with pharmacy. Dobutamine begun and titrated (under my direct supervision). HR responded and improved mentation. Dig and K+ normal. Discomfort (denies pain) treated with atropine with improvement. Repeat neuro with "discomfort". Ativan given. Discussion with family, admitting MD, supervisor polishing and terminal gauger. Admit ICU. Discussion of IV dobutamine. Consultations: nursing staff, EMS, family, pharmacy, consultants Performed by: Dr. Cotter Tolerated well condition = critical Medical Decision Making Diagnostic Impression: Primary Impression: Bradycardia Additional Impressions: Status post mitral valve replacement Expressive aphasia Diabetes mellitus Qualified Codes: E13.9 - Other specified diabetes mellitus without complications Anemia Qualified Codes: D64.9 - Anemia, unspecified Transient hypotension ER Course Patient presents with h/o hypotension, bradycardia and ALOC. She was hypotensive earlier but this has resolved. Differential includes acute myocardial infarction, digoxin toxicity, which electrolyte imbalance amongst others. At this point we will emergently treat with atropine. She's evaluated with EKG, cardiac labs digoxin level chest x-ray. She has a mitral valve replacement and is anticoagulated.. Initial EKG suggests digoxin toxicity. She responded to atropine with an increase in heart rate. Repeat EKG with NSR. She also felt less symptomatic at that time. Pacemaker pads are placed. Glucagon was given for possible beta krupa excess. The patient returned to the bradycardic rhythm and atropine 0.5 mg was repeated. No effect. Atropine 1mg given as second 0.5 mg not increase rate. Tolerating slow HR without distress. Attempt to pace - not tolerate at 25 ma and not pace. (done by ) 19:12 Attempt to order isuprel - on backorder. Contact pharmacy for alternative. Dobutamine suggested. Call to Dr. Carmona. Discussed with Dr. Albarran and Dr. Real, noting patient needing pacemaker. Dobutamine started. Titrated under my supervision and HR staying >50. Improved but requiring dobutamine. Discomfort poorly described. Denies pain. No drift upper and lower extremities. Ativan given with improvement. Dr. Carmona returned call. Admit ICU, Dr. Real. Laboratory Tests Test 02/27/17 17:27 White Blood Count 5.2 K/UL (4.8-10.8) Red Blood Count 3.20 M/UL (4.20-5.40) L Hemoglobin 9.4 G/DL (12.0-16.0) L Hematocrit 28.9 % (37.0-47.0) L Mean Corpuscular Volume 90 FL (80-99) Mean Corpuscular Hemoglobin 29.2 PG (27.0-31.0) Mean Corpuscular Hemoglobin Concent 32.3 G/DL (32.0-36.0) Red Cell Distribution Width 15.2 % (11.6-14.8) H Platelet Count 152 K/UL (150-450) Mean Platelet Volume 7.5 FL (6.5-10.1) Neutrophils (%) (Auto) 66.5 % (45.0-75.0) Lymphocytes (%) (Auto) 20.9 % (20.0-45.0) Monocytes (%) (Auto) 8.3 % (1.0-10.0) Eosinophils (%) (Auto) 3.0 % (0.0-3.0) Basophils (%) (Auto) 1.3 % (0.0-2.0) Sodium Level 138 mEQ/L (135-145) Potassium Level 3.7 mEQ/L (3.4-4.9) Chloride Level 96 mEQ/L (98-107) L Carbon Dioxide Level 21 mEQ/L (20-30) Anion Gap 21 (5-15) H Blood Urea Nitrogen 52 mg/dL (7-23) H Creatinine 1.4 mg/dL (0.5-0.9) H Estimate Glomerular Filtration Rate mL/min (>60) Glucose Level 166 mg/dL (74-106) H Calcium Level 9.2 mg/dL (8.6-10.2) Total Bilirubin 0.3 mg/dL (0.0-1.2) Aspartate Amino Transferase (AST) 21 U/L (5-40) Alanine Aminotransferase (ALT) 14 U/L (3-33) Alkaline Phosphatase 163 U/L (35-104) H Total Creatine Kinase 38 U/L (26-140) Creatine Kinase MB < 1.5 ng/mL (< 3.8) Creatine Kinase MB Relative Index Troponin I < 0.30 ng/mL (<=0.30) Pro-B-Type Natriuretic Peptide 560 pg/mL (0-125) H Total Protein 8.0 g/dL (6.6-8.7) Albumin 4.2 g/dL (3.5-5.2) Globulin 3.8 g/dL Albumin/Globulin Ratio 1.1 (1.0-2.7) Digoxin Level 1.3 ng/mL (0.5-2.0) INR 2.6 EKG Diagnostic Results Rate: bradycardiac Rhythm: other - junctional ST Segments: other - LBBB Other Impression 2nd EKG NSR 87 1st degree AV block LBBB Rhythm Strip Diag. Results EP Interpretation: yes Rhythm: no PVC's, no ectopy, other - hiram Chest X-Ray Diagnostic Results Chest X-Ray Ordered: Yes # of Views/Limited/Complete: 1 View Interpretation: no pneumothorax, other - cardiomegally, some chf Indication: Other Impression: Other Interpreting ER Provider: manuel Last Vital Signs Date Time Temp Pulse Resp B/P Pulse Ox O2 Delivery O2 Flow Rate FiO2 02/28/17 03:00 89 14 152/49 100 Nasal Cannula 2.0 02/28/17 00:00 98.9 Status: improved Disposition: ADMITTED INPATIENT Condition: Critical Referrals: NON PHYSICIAN (PCP) Alirio Cotter M.D. Feb 27, 2017 18:34
[2017-02-27 19:00] LABS: BASOPHILS % (AUTO) 1.3 % (0.0-2.0); LYMPHOCYTES % (AUTO) 20.9 % (20.0-45.0); MEAN CORPUSCULAR HEMOGLOBIN 29.2 PG (27.0-31.0); MEAN CORPUSCULAR HGB CONC 32.3 G/DL (32.0-36.0); MEAN CORPUSCULAR VOLUME 90 FL (80-99); MEAN PLATELET VOLUME 7.5 FL (6.5-10.1); MONOCYTES % (AUTO) 8.3 % (1.0-10.0); NEUTROPHILS % (AUTO) 66.5 % (45.0-75.0); PLATELET COUNT 152 K/UL (150-450); RED CELL DISTRIBUTION WIDTH 15.2 % (11.6-14.8); WHITE BLOOD COUNT 5.2 K/UL (4.8-10.8)
[2017-02-27] MEDS ORDERED: Atropine Inj 1mg/10ml Syr IVP ONE (19:00)
[2017-02-27] MEDS ORDERED: WARFARIN SODIUM1 MG ORAL (19:05)
[2017-02-27] MEDS ORDERED: MECLIZINE HCL25 MG ORAL (19:05)
[2017-02-27 19:12] LABS: ALANINE AMINOTRANSFERASE 14 U/L (3-33); ASPARTATE AMINO TRANSFERASE 21 U/L (5-40); CALCIUM 9.2 mg/dL (8.6-10.2); CARBON DIOXIDE 21 mEQ/L (20-30); CREATININE 1.4 mg/dL (0.5-0.9); TROPONIN I < 0.30 ng/mL (<=0.30)
[2017-02-27 19:13] LABS: ALBUMIN/GLOBULIN RATIO 1.1 (1.0-2.7); ANION GAP 21 (5-15); CHLORIDE 96 mEQ/L (98-107); HEMOLYSIS 0; POTASSIUM 3.7 mEQ/L (3.4-4.9); SODIUM 138 mEQ/L (135-145)
[2017-02-27 19:23] LABS: CKMB < 1.5 ng/mL (< 3.8)
[2017-02-27] MEDS ORDERED: Zolpidem 5mg tab ORAL PRN (19:30)
[2017-02-27] MEDS ORDERED: Miralax 17gm pkt ORAL PRN (19:30)
[2017-02-27] MEDS ORDERED: Mylanta II UD 30ml ORAL PRN (19:30)
[2017-02-27] MEDS ORDERED: LORazepam Inj 2mg/ml 1ml IV PRN (19:30)
[2017-02-27] MEDS ORDERED: DOBUTamine 250mg/250ml Premix 250 ML IV SCH (19:30)
[2017-02-27] MEDS ORDERED: Morphine Sulfate 2mg/ml Inj IVP PRN (20:00)
[2017-02-27] MEDS ORDERED: LORazepam Inj 2mg/ml 1ml IV ONE (20:45)
[2017-02-27] MEDS: NovoLOG Insulin Flexpen SUBQ SCH (22:00)
[2017-02-28] VITALS (65 sets, daily range): BP systolic 113–159; BP diastolic 29–94
[2017-02-28 04:16] LABS: INR 2.6 (0.9-1.1)
[2017-02-28 04:19] LABS: PROTHROMBIN TIME 27.3 SEC (9.30-11.50)
[2017-02-28] MEDS ORDERED: Lidocaine 1% MPF 10mg/ml 5ml ONE (05:12)
[2017-02-28] MEDS ORDERED: DOBUTAMINE IV ONE ×2 (06:14→06:15)
[2017-02-28] MEDS: DOBUTamine 250mg/250ml Premix 250 ML IV SCH ×2 (06:22→06:27)
[2017-02-28 06:29] LABS: BASOPHILS % (AUTO) 0.9 % (0.0-2.0); EOSINOPHILS % (AUTO) 1.5 % (0.0-3.0); LYMPHOCYTES % (AUTO) 15.7 % (20.0-45.0); MEAN CORPUSCULAR HEMOGLOBIN 29.1 PG (27.0-31.0); MEAN CORPUSCULAR HGB CONC 31.8 G/DL (32.0-36.0); MEAN CORPUSCULAR VOLUME 91 FL (80-99); MEAN PLATELET VOLUME 8.2 FL (6.5-10.1); MONOCYTES % (AUTO) 7.3 % (1.0-10.0); NEUTROPHILS % (AUTO) 74.7 % (45.0-75.0); PLATELET COUNT 133 K/UL (150-450); RED CELL DISTRIBUTION WIDTH 15.2 % (11.6-14.8)
[2017-02-28] MEDS: NovoLOG Insulin Flexpen SUBQ SCH ×4 (06:30→20:56)
[2017-02-28] MEDS ORDERED: D5W IV SCH (07:00)
[2017-02-28] MEDS ORDERED: DOBUTAMINE IV SCH (07:00)
[2017-02-28 07:17] LABS: ALANINE AMINOTRANSFERASE 11 U/L (3-33); ANION GAP 17 (5-15); ASPARTATE AMINO TRANSFERASE 21 U/L (5-40); CARBON DIOXIDE 23 mEQ/L (20-30); CHLORIDE 99 mEQ/L (98-107); CHOLESTEROL 121 mg/dL (< 200); CHOLESTEROL/HDL RATIO 3.9 (3.3-4.4); CREATININE 1.2 mg/dL (0.5-0.9); HEMOLYSIS 2; LDL CHOLESTEROL (CALC.) 67 mg/dL (60-99); POTASSIUM 3.4 mEQ/L (3.4-4.9); SODIUM 139 mEQ/L (135-145); TOTAL PROTEIN 7.4 g/dL (6.6-8.7)
--- NOTE | 2017-02-28 07:22 | Emergency Room Report ---
History of Present Illness General Chief Complaint: Dyspnea/Respdistress Source: Family Member, Medical Record, EMS Present Illness Allergies: Coded Allergies: No Known Allergies (Unverified , 09/17/16) Patient History Now: No Nursing Documentation-[facility] Past Medical History Deferred: No Family Available Past Medical History: No History, Except For Hx Cardiac Problems: Yes - Anorectal Surgery Hx Hypertension: Yes Hx Diabetes: Yes Hx Cancer: No Hx Gastrointestinal Problems: Yes Hx Neurological Problems: No Hx Cerebrovascular Accident: Yes - 1990 Hx Speech Problem: Yes - unable express self,limited conversation Hx Dizziness: Yes - 09/09 399 Hx Weakness: Yes - right side slightly weaker than left side body Physical Exam Vital Signs Date Time Temp Pulse Resp B/P Pulse Ox O2 Delivery O2 Flow Rate FiO2 02/27/17 17:09 97.9 80 24 168/89 99 Room Air 02/27/17 22:15 2.0 Procedures Central Line Central Line : Consent: Verbal Central Line Lumen: triple Maximal Sterile Barrier Tech: yes cap, yes mask, yes sterile gown, yes sterile gloves, yes large sterile sheet, yes hand hygiene, yes chlorhexidine prep Central Line Postion: femoral (R) Anesthesia: Lidocaine Complications: none Central Line Post Position: sutured, good blood return Attempts: One Patient Tolerated: Well Complications: None Medical Decision Making Diagnostic Impression: Primary Impression: Bradycardia Additional Impressions: Transient hypotension Diabetes mellitus Qualified Codes: E13.9 - Other specified diabetes mellitus without complications Anemia Qualified Codes: D64.9 - Anemia, unspecified Expressive aphasia Status post mitral valve replacement ER Course as per request of admitting physician, i placed R central femoral line in patient. patient receiving dobutamine for hypotension/bradycardia Last Vital Signs Date Time Temp Pulse Resp B/P Pulse Ox O2 Delivery O2 Flow Rate FiO2 02/28/17 06:45 56 17 140/35 100 Nasal Cannula 2.0 02/28/17 04:00 98.2 Status: improved Disposition: ADMITTED INPATIENT Condition: Critical Referrals: NON PHYSICIAN (PCP) JAYNA DA SILVA M.D. Feb 28, 2017 07:21
[2017-02-28 08:21] LABS: LACTATE DEHYDROGENASE 291 U/L (135-230)
[2017-02-28 09:00] LABS: HEMOLYSIS 2; IRON 44 ug/dL (37-145); TOTAL IRON BINDING CAPACITY 288 ug/dL (250-400)
[2017-02-28 09:42] LABS: PATH BLOOD SMEAR/OMC SENT TO PATHOLOGIST
[2017-02-28 09:43] LABS: ERYTHROCYTE SEDIMENTATION RATE 78 MM/HR (0-30)
--- NOTE | 2017-02-28 11:41 | Pulmonolgy Critical Care Note ---
Critical Care - Asmt/Plan Problems: (1) Bradycardia (2) Diabetes mellitus (3) Atrial fibrillation (4) Status post mitral valve replacement (5) Expressive aphasia Respiratory: adjust tidal volume, adjust FIO2 Cardiac: continue pressors, continue to monitor HR/BP, other - awaiting cardiolgy evaluation Renal: F/U I&O Gastrointestinal: hold feedings Endocrine: monitor blood sugar, continue sliding scale insulin Hematologic: monitor H/H, transfuse if hgb<8.5 Neurologic: PRN Ativan, keep patient comfortable Affect: PRN ativan Prophylaxis: Protonix Discussed with: nurses, consultants, [employer] manager - Objective Last 24 Hour Vital Signs Date Time Temp Pulse Resp B/P Pulse Ox O2 Delivery O2 Flow Rate FiO2 02/28/17 08:00 41 02/28/17 08:00 98.4 48 16 145/35 100 Nasal Cannula 2.0 02/28/17 07:30 48 16 135/48 100 Nasal Cannula 2.0 02/28/17 07:00 56 16 134/41 100 Nasal Cannula 2.0 02/28/17 06:45 56 17 140/35 100 Nasal Cannula 2.0 02/28/17 06:30 57 17 140/35 100 Nasal Cannula 2.0 02/28/17 06:27 140/29 02/28/17 06:15 52 17 114/35 100 Nasal Cannula 2.0 02/28/17 06:00 50 17 135/36 100 Nasal Cannula 2.0 02/28/17 05:45 53 17 132/34 100 Nasal Cannula 2.0 02/28/17 05:30 59 17 140/49 100 Nasal Cannula 2.0 02/28/17 05:15 59 17 156/36 100 Nasal Cannula 2.0 02/28/17 05:00 60 17 136/39 100 Nasal Cannula 2.0 02/28/17 04:45 54 17 141/34 100 Nasal Cannula 2.0 02/28/17 04:30 55 17 136/34 100 Nasal Cannula 2.0 02/28/17 04:15 64 17 140/29 100 Nasal Cannula 2.0 02/28/17 04:00 98.2 59 17 143/38 100 Nasal Cannula 2.0 02/28/17 04:00 55 02/28/17 03:45 55 17 140/39 100 Nasal Cannula 2.0 02/28/17 03:30 54 16 158/59 100 Nasal Cannula 2.0 02/28/17 03:15 88 16 153/66 100 Nasal Cannula 2.0 02/28/17 03:00 89 14 152/49 100 Nasal Cannula 2.0 02/28/17 02:45 63 14 150/41 100 Nasal Cannula 2.0 02/28/17 02:30 56 14 141/30 100 Nasal Cannula 2.0 02/28/17 02:15 48 14 134/43 100 Nasal Cannula 2.0 02/28/17 02:00 46 14 133/31 100 Nasal Cannula 2.0 02/28/17 01:45 52 14 147/47 100 Nasal Cannula 2.0 02/28/17 01:30 46 14 134/43 100 Nasal Cannula 2.0 02/28/17 01:15 60 14 149/47 100 Nasal Cannula 2.0 02/28/17 01:00 55 14 139/43 100 Nasal Cannula 2.0 02/28/17 00:45 70 14 159/45 100 Nasal Cannula 2.0 02/28/17 00:30 70 14 159/45 100 Nasal Cannula 2.0 02/28/17 00:15 54 14 127/41 100 Nasal Cannula 2.0 02/28/17 00:00 43 02/28/17 00:00 98.9 54 14 136/31 100 Nasal Cannula 2.0 02/27/17 23:45 55 14 139/29 100 Nasal Cannula 2.0 02/27/17 23:30 56 19 143/36 100 Nasal Cannula 2.0 02/27/17 23:15 50 16 143/35 100 Nasal Cannula 2.0 02/27/17 23:00 51 16 137/35 100 Nasal Cannula 2.0 02/27/17 22:45 54 22 141/48 100 Nasal Cannula 2.0 02/27/17 22:30 54 20 136/62 100 Nasal Cannula 2.0 02/27/17 22:15 54 20 136/62 100 Nasal Cannula 2.0 02/27/17 22:00 98.2 50 18 143/46 100 Room Air 02/27/17 22:00 98.2 52 18 151/100 100 Room Air 02/27/17 22:00 45 02/27/17 21:30 98.2 52 18 151/100 100 Room Air 02/27/17 19:46 141/38 02/27/17 19:30 40 19 142/38 100 Room Air 02/27/17 19:00 43 20 141/38 100 Room Air 02/27/17 18:30 97.9 41 17 143/38 100 Room Air 02/27/17 18:25 45 25 Room Air 02/27/17 18:00 67 20 130/57 98 Room Air 02/27/17 17:30 46 25 123/89 100 Room Air 02/27/17 17:09 97.9 80 24 168/89 99 Room Air Status: awake Condition: critical HEENT: atraumatic Lungs: clear Heart: HR/BP unstable Abdomen: soft, non-tender Extremities: no C/C/E, edema Accucheck: 110 Critical Care - Subjective ROS Limited/Unobtainable: No ICU Day: 2 Interval Events: 71 year old female with hx mechanical mitral valve on coumadin, CVA, Afib, on Digoxin DM brought in by EMS with CC of hypotension noted by visiting RN. Blood pressure was 80. Paramedics began fluids. Patient less responsive according to family. No h/o fevers or c/o pain. No focal weakness. Pt was bradycardic in ER and received multiple doses of Atropin and was started on Dobutamine drip and transferred to ICU. Condition: critical EKG Rhythm: Junctional Drips: Dobutamin I&O: Intake and Output 02/27/17 02/28/17 19:00 07:00 Intake Total 0 ml 342.11 ml Output Total 550 ml Balance 0 ml -207.89 ml Intake Oral 0 ml 100 ml IV Total 242.11 ml Output Urine Total 550 ml # Voids 1 # Bowel Movements 1 CXR: MAZIN Labs: Laboratory Tests Test 02/27/17 17:27 02/28/17 04:00 02/28/17 06:39 White Blood Count 5.2 K/UL (4.8-10.8) 6.0 K/UL (4.8-10.8) Red Blood Count 3.20 M/UL (4.20-5.40) L 2.90 M/UL (4.20-5.40) L Hemoglobin 9.4 G/DL (12.0-16.0) L 8.4 G/DL (12.0-16.0) L Hematocrit 28.9 % (37.0-47.0) L 26.5 % (37.0-47.0) L Mean Corpuscular Volume 90 FL (80-99) 91 FL (80-99) Mean Corpuscular Hemoglobin 29.2 PG (27.0-31.0) 29.1 PG (27.0-31.0) Mean Corpuscular Hemoglobin Concent 32.3 G/DL (32.0-36.0) 31.8 G/DL (32.0-36.0) L Red Cell Distribution Width 15.2 % (11.6-14.8) H 15.2 % (11.6-14.8) H Platelet Count 152 K/UL (150-450) 133 K/UL (150-450) L Mean Platelet Volume 7.5 FL (6.5-10.1) 8.2 FL (6.5-10.1) Neutrophils (%) (Auto) 66.5 % (45.0-75.0) 74.7 % (45.0-75.0) Lymphocytes (%) (Auto) 20.9 % (20.0-45.0) 15.7 % (20.0-45.0) L Monocytes (%) (Auto) 8.3 % (1.0-10.0) 7.3 % (1.0-10.0) Eosinophils (%) (Auto) 3.0 % (0.0-3.0) 1.5 % (0.0-3.0) Basophils (%) (Auto) 1.3 % (0.0-2.0) 0.9 % (0.0-2.0) Sodium Level 138 mEQ/L (135-145) 139 mEQ/L (135-145) Potassium Level 3.7 mEQ/L (3.4-4.9) 3.4 mEQ/L (3.4-4.9) Chloride Level 96 mEQ/L (98-107) L 99 mEQ/L (98-107) Carbon Dioxide Level 21 mEQ/L (20-30) 23 mEQ/L (20-30) Anion Gap 21 (5-15) H 17 (5-15) H Blood Urea Nitrogen 52 mg/dL (7-23) H 46 mg/dL (7-23) H Creatinine 1.4 mg/dL (0.5-0.9) H 1.2 mg/dL (0.5-0.9) H Estimat Glomerular Filtration Rate mL/min (>60) mL/min (>60) Glucose Level 166 mg/dL (74-106) H 127 mg/dL (74-106) H Calcium Level 9.2 mg/dL (8.6-10.2) 9.0 mg/dL (8.6-10.2) Total Bilirubin 0.3 mg/dL (0.0-1.2) 0.4 mg/dL (0.0-1.2) Aspartate Amino Transf (AST/SGOT) 21 U/L (5-40) 21 U/L (5-40) Alanine Aminotransferase (ALT/SGPT) 14 U/L (3-33) 11 U/L (3-33) Alkaline Phosphatase 163 U/L (35-104) H 139 U/L (35-104) H Total Creatine Kinase 38 U/L (26-140) Creatine Kinase MB < 1.5 ng/mL (< 3.8) Creatine Kinase MB Relative Index Troponin I < 0.30 ng/mL (<=0.30) Pro-B-Type Natriuretic Peptide 560 pg/mL (0-125) H 739 pg/mL (0-125) H Total Protein 8.0 g/dL (6.6-8.7) 7.4 g/dL (6.6-8.7) Albumin 4.2 g/dL (3.5-5.2) 3.7 g/dL (3.5-5.2) Globulin 3.8 g/dL 3.7 g/dL Albumin/Globulin Ratio 1.1 (1.0-2.7) 1.0 (1.0-2.7) Digoxin Level 1.3 ng/mL (0.5-2.0) Prothrombin Time 27.3 SEC (9.30-11.50) H Prothromb Time International Ratio 2.6 (0.9-1.1) H Activated Partial Thromboplast Time 54 SEC (23-33) H Erythrocyte Sedimentation Rate 78 MM/HR (0-30) H Reticulocyte Count Pending Iron Level 44 ug/dL (37-145) Total Iron Binding Capacity 288 ug/dL (250-400) Percent Iron Saturation 15 % (15-50) Unsaturated Iron Binding 244 ug/dL (112-346) Lactate Dehydrogenase 291 U/L (135-230) H Triglycerides Level 113 mg/dL (< 150) Cholesterol Level 121 mg/dL (< 200) LDL Cholesterol 67 mg/dL (60-99) HDL Cholesterol 31 mg/dL (> 60) Cholesterol/HDL Ratio 3.9 (3.3-4.4) Carcinoembryonic Antigen 2.8 ng/mL Vitamin B12 Level 434 pg/mL (211-946) Folate Pending Thyroid Stimulating Hormone (TSH) 2.540 uIU/mL (0.300-4.500) Free Thyroxine 1.44 ng/dL (0.86-1.85) MAC FARIAS Feb 28, 2017 11:41
[2017-02-28 13:35] LABS: RETICULOCYTE COUNT 1.1 % (0.0-2.0)
--- NOTE | 2017-02-28 13:36 | History & Physical ---
History and Physical History & Physicial Dictated for Int Med-Dr Real no. [id number]. NIKKI TAYLOR Feb 28, 2017 13:36
--- NOTE | 2017-02-28 13:48 | Cardiac Electrophysiology PN ---
Subjective Subjective [id number]. PAF, Hiram down to 20s, Trifascicular block DC Dig and Coreg. If hiram persists, will proceed with PPM specially in view of her need for BB for atrial fib with RVR. Objective Last 24 Hour Vital Signs Date Time Temp Pulse Resp B/P Pulse Ox O2 Delivery O2 Flow Rate FiO2 02/28/17 08:00 41 02/28/17 08:00 98.4 48 16 145/35 100 Nasal Cannula 2.0 02/28/17 07:30 48 16 135/48 100 Nasal Cannula 2.0 02/28/17 07:00 56 16 134/41 100 Nasal Cannula 2.0 02/28/17 06:45 56 17 140/35 100 Nasal Cannula 2.0 02/28/17 06:30 57 17 140/35 100 Nasal Cannula 2.0 02/28/17 06:27 140/29 02/28/17 06:15 52 17 114/35 100 Nasal Cannula 2.0 02/28/17 06:00 50 17 135/36 100 Nasal Cannula 2.0 02/28/17 05:45 53 17 132/34 100 Nasal Cannula 2.0 02/28/17 05:30 59 17 140/49 100 Nasal Cannula 2.0 02/28/17 05:15 59 17 156/36 100 Nasal Cannula 2.0 02/28/17 05:00 60 17 136/39 100 Nasal Cannula 2.0 02/28/17 04:45 54 17 141/34 100 Nasal Cannula 2.0 02/28/17 04:30 55 17 136/34 100 Nasal Cannula 2.0 02/28/17 04:15 64 17 140/29 100 Nasal Cannula 2.0 02/28/17 04:00 98.2 59 17 143/38 100 Nasal Cannula 2.0 02/28/17 04:00 55 02/28/17 03:45 55 17 140/39 100 Nasal Cannula 2.0 02/28/17 03:30 54 16 158/59 100 Nasal Cannula 2.0 02/28/17 03:15 88 16 153/66 100 Nasal Cannula 2.0 02/28/17 03:00 89 14 152/49 100 Nasal Cannula 2.0 02/28/17 02:45 63 14 150/41 100 Nasal Cannula 2.0 02/28/17 02:30 56 14 141/30 100 Nasal Cannula 2.0 02/28/17 02:15 48 14 134/43 100 Nasal Cannula 2.0 02/28/17 02:00 46 14 133/31 100 Nasal Cannula 2.0 02/28/17 01:45 52 14 147/47 100 Nasal Cannula 2.0 02/28/17 01:30 46 14 134/43 100 Nasal Cannula 2.0 02/28/17 01:15 60 14 149/47 100 Nasal Cannula 2.0 02/28/17 01:00 55 14 139/43 100 Nasal Cannula 2.0 02/28/17 00:45 70 14 159/45 100 Nasal Cannula 2.0 02/28/17 00:30 70 14 159/45 100 Nasal Cannula 2.0 02/28/17 00:15 54 14 127/41 100 Nasal Cannula 2.0 02/28/17 00:00 43 02/28/17 00:00 98.9 54 14 136/31 100 Nasal Cannula 2.0 02/27/17 23:45 55 14 139/29 100 Nasal Cannula 2.0 02/27/17 23:30 56 19 143/36 100 Nasal Cannula 2.0 02/27/17 23:15 50 16 143/35 100 Nasal Cannula 2.0 02/27/17 23:00 51 16 137/35 100 Nasal Cannula 2.0 02/27/17 22:45 54 22 141/48 100 Nasal Cannula 2.0 02/27/17 22:30 54 20 136/62 100 Nasal Cannula 2.0 02/27/17 22:15 54 20 136/62 100 Nasal Cannula 2.0 02/27/17 22:00 98.2 50 18 143/46 100 Room Air 02/27/17 22:00 98.2 52 18 151/100 100 Room Air 02/27/17 22:00 45 02/27/17 21:30 98.2 52 18 151/100 100 Room Air 02/27/17 19:46 141/38 02/27/17 19:30 40 19 142/38 100 Room Air 02/27/17 19:00 43 20 141/38 100 Room Air 02/27/17 18:30 97.9 41 17 143/38 100 Room Air 02/27/17 18:25 45 25 Room Air 02/27/17 18:00 67 20 130/57 98 Room Air 02/27/17 17:30 46 25 123/89 100 Room Air 02/27/17 17:09 97.9 80 24 168/89 99 Room Air Intake and Output 02/27/17 02/28/17 19:00 07:00 Intake Total 0 ml 342.11 ml Output Total 550 ml Balance 0 ml -207.89 ml Intake Oral 0 ml 100 ml IV Total 242.11 ml Output Urine Total 550 ml # Voids 1 # Bowel Movements 1 Laboratory Tests Test 02/27/17 17:27 02/28/17 04:00 02/28/17 06:39 White Blood Count 5.2 K/UL (4.8-10.8) 6.0 K/UL (4.8-10.8) Red Blood Count 3.20 M/UL (4.20-5.40) L 2.90 M/UL (4.20-5.40) L Hemoglobin 9.4 G/DL (12.0-16.0) L 8.4 G/DL (12.0-16.0) L Hematocrit 28.9 % (37.0-47.0) L 26.5 % (37.0-47.0) L Mean Corpuscular Volume 90 FL (80-99) 91 FL (80-99) Mean Corpuscular Hemoglobin 29.2 PG (27.0-31.0) 29.1 PG (27.0-31.0) Mean Corpuscular Hemoglobin Concent 32.3 G/DL (32.0-36.0) 31.8 G/DL (32.0-36.0) L Red Cell Distribution Width 15.2 % (11.6-14.8) H 15.2 % (11.6-14.8) H Platelet Count 152 K/UL (150-450) 133 K/UL (150-450) L Mean Platelet Volume 7.5 FL (6.5-10.1) 8.2 FL (6.5-10.1) Neutrophils (%) (Auto) 66.5 % (45.0-75.0) 74.7 % (45.0-75.0) Lymphocytes (%) (Auto) 20.9 % (20.0-45.0) 15.7 % (20.0-45.0) L Monocytes (%) (Auto) 8.3 % (1.0-10.0) 7.3 % (1.0-10.0) Eosinophils (%) (Auto) 3.0 % (0.0-3.0) 1.5 % (0.0-3.0) Basophils (%) (Auto) 1.3 % (0.0-2.0) 0.9 % (0.0-2.0) Sodium Level 138 mEQ/L (135-145) 139 mEQ/L (135-145) Potassium Level 3.7 mEQ/L (3.4-4.9) 3.4 mEQ/L (3.4-4.9) Chloride Level 96 mEQ/L (98-107) L 99 mEQ/L (98-107) Carbon Dioxide Level 21 mEQ/L (20-30) 23 mEQ/L (20-30) Anion Gap 21 (5-15) H 17 (5-15) H Blood Urea Nitrogen 52 mg/dL (7-23) H 46 mg/dL (7-23) H Creatinine 1.4 mg/dL (0.5-0.9) H 1.2 mg/dL (0.5-0.9) H Estimat Glomerular Filtration Rate mL/min (>60) mL/min (>60) Glucose Level 166 mg/dL (74-106) H 127 mg/dL (74-106) H Calcium Level 9.2 mg/dL (8.6-10.2) 9.0 mg/dL (8.6-10.2) Total Bilirubin 0.3 mg/dL (0.0-1.2) 0.4 mg/dL (0.0-1.2) Aspartate Amino Transf (AST/SGOT) 21 U/L (5-40) 21 U/L (5-40) Alanine Aminotransferase (ALT/SGPT) 14 U/L (3-33) 11 U/L (3-33) Alkaline Phosphatase 163 U/L (35-104) H 139 U/L (35-104) H Total Creatine Kinase 38 U/L (26-140) Creatine Kinase MB < 1.5 ng/mL (< 3.8) Creatine Kinase MB Relative Index Troponin I < 0.30 ng/mL (<=0.30) Pro-B-Type Natriuretic Peptide 560 pg/mL (0-125) H 739 pg/mL (0-125) H Total Protein 8.0 g/dL (6.6-8.7) 7.4 g/dL (6.6-8.7) Albumin 4.2 g/dL (3.5-5.2) 3.7 g/dL (3.5-5.2) Globulin 3.8 g/dL 3.7 g/dL Albumin/Globulin Ratio 1.1 (1.0-2.7) 1.0 (1.0-2.7) Digoxin Level 1.3 ng/mL (0.5-2.0) Prothrombin Time 27.3 SEC (9.30-11.50) H Prothromb Time International Ratio 2.6 (0.9-1.1) H Activated Partial Thromboplast Time 54 SEC (23-33) H Erythrocyte Sedimentation Rate 78 MM/HR (0-30) H Reticulocyte Count 1.1 % (0.0-2.0) Iron Level 44 ug/dL (37-145) Total Iron Binding Capacity 288 ug/dL (250-400) Percent Iron Saturation 15 % (15-50) Unsaturated Iron Binding 244 ug/dL (112-346) Lactate Dehydrogenase 291 U/L (135-230) H Triglycerides Level 113 mg/dL (< 150) Cholesterol Level 121 mg/dL (< 200) LDL Cholesterol 67 mg/dL (60-99) HDL Cholesterol 31 mg/dL (> 60) Cholesterol/HDL Ratio 3.9 (3.3-4.4) Carcinoembryonic Antigen 2.8 ng/mL Vitamin B12 Level 434 pg/mL (211-946) Folate Pending Thyroid Stimulating Hormone (TSH) 2.540 uIU/mL (0.300-4.500) Free Thyroxine 1.44 ng/dL (0.86-1.85) AUTUMN BERYR Feb 28, 2017 13:48
[2017-02-28] MEDS: D5 1/2NS w/KCl 20mEq 1,000 ML IV SCH (14:30)
[2017-02-28] MEDS ORDERED: DOPamine 400mg/250ml 250 ML IV PRN (15:30)
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
[2017-02-28] MEDS ORDERED: DOPamine 400mg/250ml BTL IV ONE (15:53)
[2017-02-28] MEDS: DOPamine 400mg/250ml 250 ML IV PRN (15:56)
[2017-02-28] MEDS ORDERED: Atropine Sulfate 1mg Inj IVP PRN (17:00)
[2017-02-28] MEDS ORDERED: Warfarin Sodium 3mg ORAL ONE (17:00)
[2017-02-28] MEDS: Dyna-Hex 2% Top Sol 8oz TOPIC SCH (20:54)
--- NOTE | 2017-02-28 23:45 | Consultation ---
DATE OF CONSULTATION: 02/28/2017 CARDIOLOGY CONSULTATION REFERRING PHYSICIAN: 1. Kobi Real M.D. 2. Sher Hansen M.D. REASON FOR CONSULTATION: Hypotension and bradycardia. HISTORY OF PRESENT ILLNESS: The patient is a 71-year-old lady with history of hypertension and paroxysmal atrial fibrillation. She has a history of prosthetic aortic valve replacement, on Coumadin at Home, who is familiar from her previous admissions to [facility]. The patient was sent and the nurse found that the patient was bradycardic and hypotensive. In the emergency room, the patient's heart rate was as low as 20s and was started on dobutamine drip. The patient was then admitted to the intensive care unit on 15 mcg of dobutamine. Cardiology consultation was obtained for further evaluation and management. REVIEW OF SYSTEMS: Negative other than what is mentioned in the history of present illness. PAST MEDICAL HISTORY: 1. Hypertension. 2. Diabetes. 3. Paroxysmal atrial fibrillation. 4. Status post prosthetic aortic valve replacement. FAMILY HISTORY: Noncontributory. PHYSICAL EXAMINATION: VITAL SIGNS: Blood pressure today is 145/75, pulse is 42, respirations 18, and she is afebrile. HEAD AND NECK: Shows no JVD or carotid bruits. LUNGS: Clear. CARDIOVASCULAR: Shows bradycardic. S1 and S2 with no gallop or murmur. ABDOMEN: Soft. EXTREMITIES: No pitting edema. Sternotomy scar is intact. LABORATORY DATA: Show white count of 6, hemoglobin 8.4, hematocrit 26.5, and platelet count of 133,000. Sodium is 139, potassium 3.4, BUN 46, creatinine 1.2, and glucose of 127. Troponin is negative. BNP is 739. INR is 2.6. ASSESSMENT AND PLAN: 1. Profound bradycardia. I will try to taper her down dobutamine to off. This is likely due to a combination of digoxin and Coreg that the patient was on. The patient was on digoxin 0.125 mg daily as well as Coreg 6.25 mg b.i.d., both discontinued. However, the patient would be at risk of recurrence of atrial fibrillation with rapid ventricular response. In the meantime, continue the patient on Coumadin. 2. Status post prosthetic aortic valve replacement. The patient is on Coumadin. 3. History of paroxysmal atrial fibrillation with rapid ventricular response. The patient remains on Coumadin, but bradycardia. We will also get an echocardiogram for further evaluation. It is of note that the patient's last echocardiogram in September of 2016 showed ejection fraction of 55% to 60%. 4. Anemia. 5. Azotemia. BUN of 46 and creatinine 1.2. 6. Congestive heart failure, dysfunction. BNP of 739. Continue Lasix 40 mg IV daily. Thank you very much, Dr. Real and Dr. Hansen, for allowing me to participate in the care of this patient. Please do not hesitate to contact me for any questions regarding my evaluation. Osmany Carmona M.D. DR: JERRY JOB#: [id number] CC:
[2017-03-01] VITALS (48 sets, daily range): BP systolic 98–163; BP diastolic 21–76
[2017-03-01] MEDS: DOPamine 400mg/250ml 250 ML IV PRN ×2 (06:37→21:00)
[2017-03-01] MEDS: NovoLOG Insulin Flexpen SUBQ SCH ×4 (06:47→21:01)
[2017-03-01 07:43] LABS: BASOPHILS % (AUTO) 0.5 % (0.0-2.0); EOSINOPHILS % (AUTO) 1.4 % (0.0-3.0); LYMPHOCYTES % (AUTO) 10.8 % (20.0-45.0); MEAN CORPUSCULAR HEMOGLOBIN 28.7 PG (27.0-31.0); MEAN CORPUSCULAR VOLUME 90 FL (80-99); MEAN PLATELET VOLUME 7.3 FL (6.5-10.1); MONOCYTES % (AUTO) 10.2 % (1.0-10.0); NEUTROPHILS % (AUTO) 77.1 % (45.0-75.0); PLATELET COUNT 159 K/UL (150-450); WHITE BLOOD COUNT 7.1 K/UL (4.8-10.8)
[2017-03-01 08:00] LABS: INR 2.3 (0.9-1.1); PROTHROMBIN TIME 24.3 SEC (9.30-11.50)
[2017-03-01 08:05] LABS: ANION GAP 16 (5-15); CALCIUM 8.9 mg/dL (8.6-10.2); CARBON DIOXIDE 25 mEQ/L (20-30); CHLORIDE 101 mEQ/L (98-107); HEMOLYSIS 0; POTASSIUM 3.9 mEQ/L (3.4-4.9); SODIUM 142 mEQ/L (135-145)
[2017-03-01 08:16] LABS: TROPONIN I < 0.30 ng/mL (<=0.30)
[2017-03-01] MEDS ORDERED: Pantoprazole Inj IVP SCH (09:00)
[2017-03-01] MEDS: D5 1/2NS w/KCl 20mEq 1,000 ML IV SCH (09:06)
[2017-03-01] MEDS ORDERED: D5W 275ml ONE (10:35)
[2017-03-01 10:43] LABS: ANISOCYTOSIS 1+; BAND NEUTROPHILS % (MANUAL) 0 % (0-8); BASOPHILS % (MANUAL) 0 % (0-2); EOSINOPHILS % (MANUAL) 0 % (0-3); LYMPHOCYTES % (MANUAL) 16 % (20-45); NEUTROPHILS % (MANUAL) 74 % (45-75); PLATELET ESTIMATE DECREASED; PLATELET MORPHOLOGY NORMAL; TOTAL CELLS COUNTED 100
[2017-03-01 10:44] LABS: HYPOCHROMASIA 1+
--- NOTE | 2017-03-01 11:59 | Pulmonolgy Critical Care Note ---
Critical Care - Asmt/Plan Problems: (1) Bradycardia (2) Diabetes mellitus (3) Atrial fibrillation (4) ATN (acute tubular necrosis) (5) Hypoalbuminemia (6) Expressive aphasia (7) Status post mitral valve replacement Respiratory: monitor respiratory rate, adjust FIO2, CXR Cardiac: continue pressors, continue to monitor HR/BP Renal: F/U I&O, keep IV fluid, check electrolytes Gastrointestinal: continue feedings/current rate Endocrine: monitor blood sugar, check TSH, continue sliding scale insulin Hematologic: monitor H/H, transfuse if hgb<8.5 Neurologic: PRN Ativan, PRN Morphine, keep patient comfortable Affect: PRN ativan Prophylaxis: Protonix 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, 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, 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 - Objective Last 24 Hour Vital Signs Date Time Temp Pulse Resp B/P Pulse Ox O2 Delivery O2 Flow Rate FiO2 03/01/17 11:30 55 14 148/41 100 Nasal Cannula 2.0 03/01/17 11:00 57 16 136/48 100 Nasal Cannula 2.0 03/01/17 10:30 57 21 136/46 100 Nasal Cannula 2.0 03/01/17 10:00 58 20 121/37 100 Nasal Cannula 2.0 03/01/17 09:30 57 20 140/43 100 Nasal Cannula 2.0 03/01/17 09:00 56 18 144/45 100 Nasal Cannula 2.0 03/01/17 08:30 55 15 139/42 100 Nasal Cannula 2.0 03/01/17 08:00 55 03/01/17 08:00 98.2 55 13 124/43 100 Nasal Cannula 2.0 03/01/17 07:30 53 13 148/44 100 Nasal Cannula 2.0 03/01/17 07:00 58 18 148/42 100 Nasal Cannula 2.0 03/01/17 06:37 98/30 03/01/17 06:30 44 18 98/30 100 Nasal Cannula 2.0 03/01/17 06:00 50 18 137/30 100 Nasal Cannula 2.0 03/01/17 05:30 55 18 133/44 100 Nasal Cannula 2.0 03/01/17 05:00 57 21 137/30 100 Nasal Cannula 2.0 03/01/17 04:30 56 19 138/40 100 Nasal Cannula 2.0 03/01/17 04:00 98.2 49 18 133/37 100 Nasal Cannula 2.0 03/01/17 03:56 54 03/01/17 03:30 48 14 124/34 100 Nasal Cannula 2.0 03/01/17 03:00 49 17 139/44 100 Nasal Cannula 2.0 03/01/17 02:30 45 18 140/42 100 Nasal Cannula 2.0 03/01/17 02:00 46 15 128/40 100 Nasal Cannula 2.0 03/01/17 01:30 45 14 125/43 100 Nasal Cannula 2.0 03/01/17 01:00 43 14 124/35 100 Nasal Cannula 2.0 03/01/17 00:30 57 20 136/49 100 Nasal Cannula 2.0 03/01/17 00:00 51 03/01/17 00:00 98.6 51 15 139/38 100 Nasal Cannula 2.0 02/28/17 23:30 49 15 137/57 100 Nasal Cannula 2.0 02/28/17 23:00 49 17 147/42 100 Nasal Cannula 2.0 02/28/17 22:30 53 21 131/36 100 Nasal Cannula 2.0 02/28/17 22:00 54 19 149/40 100 Nasal Cannula 2.0 02/28/17 21:30 60 23 131/39 100 Nasal Cannula 2.0 02/28/17 21:00 62 23 137/39 100 Nasal Cannula 2.0 02/28/17 20:30 62 21 130/42 100 Nasal Cannula 2.0 02/28/17 20:00 56 02/28/17 20:00 61 13 149/35 100 Nasal Cannula 2.0 02/28/17 19:55 44 02/28/17 19:30 52 13 141/36 100 Nasal Cannula 2.0 02/28/17 19:00 60 14 137/37 100 Nasal Cannula 2.0 02/28/17 18:30 44 20 132/35 100 Nasal Cannula 2.0 02/28/17 18:00 46 22 135/38 100 Nasal Cannula 2.0 02/28/17 17:30 48 22 124/36 100 Nasal Cannula 2.0 02/28/17 17:15 51 22 146/36 100 Nasal Cannula 2.0 02/28/17 17:00 68 22 130/37 100 Nasal Cannula 2.0 02/28/17 16:45 68 16 150/44 100 Nasal Cannula 2.0 02/28/17 16:30 70 17 137/43 100 Nasal Cannula 2.0 02/28/17 16:19 39 20 116/50 100 Nasal Cannula 2.0 02/28/17 16:15 39 20 122/39 100 Nasal Cannula 2.0 02/28/17 16:00 98.2 36 15 126/36 100 Nasal Cannula 2.0 02/28/17 16:00 44 02/28/17 15:56 114/30 02/28/17 15:45 32 15 114/30 100 Nasal Cannula 2.0 02/28/17 15:00 63 14 129/94 100 Nasal Cannula 2.0 02/28/17 14:30 63 19 132/51 100 Nasal Cannula 2.0 02/28/17 14:00 63 19 100 Nasal Cannula 2.0 02/28/17 13:30 65 19 158/42 100 Nasal Cannula 2.0 02/28/17 13:00 64 19 133/42 100 Nasal Cannula 2.0 02/28/17 12:30 66 19 131/46 100 Nasal Cannula 2.0 02/28/17 12:00 66 02/28/17 12:00 98.0 68 19 121/38 100 Nasal Cannula 2.0 Status: awake Condition: critical HEENT: atraumatic Neck: full ROM Lungs: clear Heart: HR/BP unstable, irregular Abdomen: soft, feeding tube Extremities: no C/C/E Decubiti: location, stage Accucheck: 160 Critical Care - Subjective ROS Limited/Unobtainable: No ICU Day: 2 Condition: critical EKG Rhythm: Sinus Rhythm Drips: dopamine drip I&O: Intake and Output 02/28/17 03/01/17 19:00 07:00 Intake Total 584.09 ml 250 ml Output Total 1780 ml 690 ml Balance -1195.91 ml -440 ml Intake Oral 390 ml 250 ml IV Total 194.09 ml Output Urine Total 1780 ml 690 ml CXR: no change Labs: Laboratory Tests Test 03/01/17 04:15 White Blood Count 7.1 K/UL (4.8-10.8) Red Blood Count 3.20 M/UL (4.20-5.40) L Hemoglobin 9.2 G/DL (12.0-16.0) L Hematocrit 28.7 % (37.0-47.0) L Mean Corpuscular Volume 90 FL (80-99) Mean Corpuscular Hemoglobin 28.7 PG (27.0-31.0) Mean Corpuscular Hemoglobin Concent 32.0 G/DL (32.0-36.0) Red Cell Distribution Width 15.0 % (11.6-14.8) H Platelet Count 159 K/UL (150-450) Mean Platelet Volume 7.3 FL (6.5-10.1) Neutrophils (%) (Auto) 77.1 % (45.0-75.0) H Lymphocytes (%) (Auto) 10.8 % (20.0-45.0) L Monocytes (%) (Auto) 10.2 % (1.0-10.0) H Eosinophils (%) (Auto) 1.4 % (0.0-3.0) Basophils (%) (Auto) 0.5 % (0.0-2.0) Prothrombin Time 24.3 SEC (9.30-11.50) H Prothromb Time International Ratio 2.3 (0.9-1.1) H Sodium Level 142 mEQ/L (135-145) Potassium Level 3.9 mEQ/L (3.4-4.9) Chloride Level 101 mEQ/L (98-107) Carbon Dioxide Level 25 mEQ/L (20-30) Anion Gap 16 (5-15) H Blood Urea Nitrogen 27 mg/dL (7-23) H Creatinine 1.0 mg/dL (0.5-0.9) H Estimat Glomerular Filtration Rate mL/min (>60) Glucose Level 175 mg/dL (74-106) H Calcium Level 8.9 mg/dL (8.6-10.2) Troponin I < 0.30 ng/mL (<=0.30) Pro-B-Type Natriuretic Peptide 724 pg/mL (0-125) H MAC FARIAS Mar 01, 2017 11:59
--- NOTE | 2017-03-01 14:55 | Cardiac Electrophysiology PN ---
Assessment/Plan Assessment/Plan 1. Profound bradycardia. HR dropped to 27 last night. Still junctional despite Dobutamine and now on Dopamine. Off AVN krupa for 3 days now. The patient would be at risk of recurrence of atrial fibrillation with rapid ventricular response. Hold Coumadin as she likely would need pacer. 2. Status post prosthetic aortic valve replacement. The patient is on Coumadin. 3. History of paroxysmal atrial fibrillation with rapid ventricular response. Last echocardiogram in September of 2016 showed ejection fraction of 55% to 60%. 4. Anemia. 5. Azotemia. BUN of 46 and creatinine 1.2. 6. Congestive heart failure, due to diastolic dysfunction. BNP of 739. Continue Lasix 40 mg IV daily. Subjective Subjective Remained in Junctional rhythm in ICU despite being on 10 Mcg of Dopamine. OFF any BAUER or AVN krupa for 48 hours. Likely would need PPM implant. Objective Last 24 Hour Vital Signs Date Time Temp Pulse Resp B/P Pulse Ox O2 Delivery O2 Flow Rate FiO2 03/01/17 13:00 55 20 146/41 100 Nasal Cannula 2.0 03/01/17 12:30 55 14 148/41 100 Nasal Cannula 2.0 03/01/17 12:30 56 19 133/41 100 Nasal Cannula 2.0 03/01/17 12:00 55 03/01/17 12:00 98.1 57 16 148/43 100 Nasal Cannula 2.0 03/01/17 11:30 55 14 148/41 100 Nasal Cannula 2.0 03/01/17 11:00 57 16 136/48 100 Nasal Cannula 2.0 03/01/17 10:30 57 21 136/46 100 Nasal Cannula 2.0 03/01/17 10:00 58 20 121/37 100 Nasal Cannula 2.0 03/01/17 09:30 57 20 140/43 100 Nasal Cannula 2.0 03/01/17 09:00 56 18 144/45 100 Nasal Cannula 2.0 03/01/17 08:30 55 15 139/42 100 Nasal Cannula 2.0 03/01/17 08:00 55 03/01/17 08:00 98.2 55 13 124/43 100 Nasal Cannula 2.0 03/01/17 07:30 53 13 148/44 100 Nasal Cannula 2.0 03/01/17 07:00 58 18 148/42 100 Nasal Cannula 2.0 03/01/17 06:37 98/30 6/25/17 06:30 44 18 98/30 100 Nasal Cannula 2.0 03/01/17 06:00 50 18 137/30 100 Nasal Cannula 2.0 03/01/17 05:30 55 18 133/44 100 Nasal Cannula 2.0 03/01/17 05:00 57 21 137/30 100 Nasal Cannula 2.0 03/01/17 04:30 56 19 138/40 100 Nasal Cannula 2.0 03/01/17 04:00 98.2 49 18 133/37 100 Nasal Cannula 2.0 03/01/17 03:56 54 03/01/17 03:30 48 14 124/34 100 Nasal Cannula 2.0 03/01/17 03:00 49 17 139/44 100 Nasal Cannula 2.0 03/01/17 02:30 45 18 140/42 100 Nasal Cannula 2.0 03/01/17 02:00 46 15 128/40 100 Nasal Cannula 2.0 03/01/17 01:30 45 14 125/43 100 Nasal Cannula 2.0 03/01/17 01:00 43 14 124/35 100 Nasal Cannula 2.0 03/01/17 00:30 57 20 136/49 100 Nasal Cannula 2.0 03/01/17 00:00 51 03/01/17 00:00 98.6 51 15 139/38 100 Nasal Cannula 2.0 02/28/17 23:30 49 15 137/57 100 Nasal Cannula 2.0 02/28/17 23:00 49 17 147/42 100 Nasal Cannula 2.0 02/28/17 22:30 53 21 131/36 100 Nasal Cannula 2.0 02/28/17 22:00 54 19 149/40 100 Nasal Cannula 2.0 02/28/17 21:30 60 23 131/39 100 Nasal Cannula 2.0 02/28/17 21:00 62 23 137/39 100 Nasal Cannula 2.0 02/28/17 20:30 62 21 130/42 100 Nasal Cannula 2.0 02/28/17 20:00 56 02/28/17 20:00 61 13 149/35 100 Nasal Cannula 2.0 02/28/17 19:55 44 02/28/17 19:30 52 13 141/36 100 Nasal Cannula 2.0 02/28/17 19:00 60 14 137/37 100 Nasal Cannula 2.0 02/28/17 18:30 44 20 132/35 100 Nasal Cannula 2.0 02/28/17 18:00 46 22 135/38 100 Nasal Cannula 2.0 02/28/17 17:30 48 22 124/36 100 Nasal Cannula 2.0 02/28/17 17:15 51 22 146/36 100 Nasal Cannula 2.0 02/28/17 17:00 68 22 130/37 100 Nasal Cannula 2.0 02/28/17 16:45 68 16 150/44 100 Nasal Cannula 2.0 02/28/17 16:30 70 17 137/43 100 Nasal Cannula 2.0 02/28/17 16:19 39 20 116/50 100 Nasal Cannula 2.0 02/28/17 16:15 39 20 122/39 100 Nasal Cannula 2.0 02/28/17 16:00 98.2 36 15 126/36 100 Nasal Cannula 2.0 02/28/17 16:00 44 02/28/17 15:56 114/30 02/28/17 15:45 32 15 114/30 100 Nasal Cannula 2.0 02/28/17 15:00 63 14 129/94 100 Nasal Cannula 2.0 Intake and Output 02/28/17 03/01/17 19:00 07:00 Intake Total 584.09 ml 250 ml Output Total 1780 ml 690 ml Balance -1195.91 ml -440 ml Intake Oral 390 ml 250 ml IV Total 194.09 ml Output Urine Total 1780 ml 690 ml Laboratory Tests Test 03/01/17 04:15 White Blood Count 7.1 K/UL (4.8-10.8) Red Blood Count 3.20 M/UL (4.20-5.40) L Hemoglobin 9.2 G/DL (12.0-16.0) L Hematocrit 28.7 % (37.0-47.0) L Mean Corpuscular Volume 90 FL (80-99) Mean Corpuscular Hemoglobin 28.7 PG (27.0-31.0) Mean Corpuscular Hemoglobin Concent 32.0 G/DL (32.0-36.0) Red Cell Distribution Width 15.0 % (11.6-14.8) H Platelet Count 159 K/UL (150-450) Mean Platelet Volume 7.3 FL (6.5-10.1) Neutrophils (%) (Auto) 77.1 % (45.0-75.0) H Lymphocytes (%) (Auto) 10.8 % (20.0-45.0) L Monocytes (%) (Auto) 10.2 % (1.0-10.0) H Eosinophils (%) (Auto) 1.4 % (0.0-3.0) Basophils (%) (Auto) 0.5 % (0.0-2.0) Prothrombin Time 24.3 SEC (9.30-11.50) H Prothromb Time International Ratio 2.3 (0.9-1.1) H Sodium Level 142 mEQ/L (135-145) Potassium Level 3.9 mEQ/L (3.4-4.9) Chloride Level 101 mEQ/L (98-107) Carbon Dioxide Level 25 mEQ/L (20-30) Anion Gap 16 (5-15) H Blood Urea Nitrogen 27 mg/dL (7-23) H Creatinine 1.0 mg/dL (0.5-0.9) H Estimat Glomerular Filtration Rate mL/min (>60) Glucose Level 175 mg/dL (74-106) H Calcium Level 8.9 mg/dL (8.6-10.2) Troponin I < 0.30 ng/mL (<=0.30) Pro-B-Type Natriuretic Peptide 724 pg/mL (0-125) H Objective HEAD AND NECK: Shows no JVD or carotid bruits. LUNGS: Clear. CARDIOVASCULAR: Still hiram. S1 and S2 with no gallop or murmur. ABDOMEN: Soft. EXTREMITIES: No pitting edema. Sternotomy scar is intact. AUTUMN BERRY Mar 01, 2017 14:55
--- NOTE | 2017-03-01 15:06 | Internal Med Progress Note ---
Subjective Date of Service: Mar 01, 2017 Physician Name Taylor,Nikki Attending Physician Kobi Real MD Current Medications Medications (Trade) Dose Ordered Sig/Grisel Route PRN Reason Start Time Stop Time Status Last Admin Dose Admin Acetaminophen (Tylenol) 650 mg Q4H PRN ORAL fever 02/27/17 19:30 03/29/17 19:29 Al Hydroxide/Mg Hydroxide (Mylanta II) 30 ml Q6H PRN ORAL dyspepsia 02/27/17 19:30 03/29/17 19:29 Atropine Sulfate (Atropine 1mg/ml Inj) 0.5 mg Q3H PRN IVP HR less than 30 BPM 02/28/17 17:00 03/30/17 16:59 Chlorhexidine Gluconate 1 applic 1 applic BEDTIME TOPIC 02/28/17 21:00 03/30/17 20:59 02/28/17 20:54 Dextrose (Dextrose 50%) STAT PRN IV Hypoglycemia 02/27/17 19:30 03/29/17 19:29 Dextrose/ Electrolytes 1,000 ml @ 50 mls/hr Q20H IV 02/28/17 13:00 03/30/17 12:59 03/01/17 09:06 Dopamine HCl/ Dextrose (DOPamine 400mg/ 250ml) 250 ml @ 0 mls/hr Q24H PRN IV Bradycardia 02/28/17 15:30 03/30/17 15:29 03/01/17 06:37 Furosemide (Lasix) 40 mg DAILY IV 02/28/17 09:00 03/30/17 08:59 03/01/17 09:06 Insulin Aspart (NovoLOG) BEFORE MEALS AND HS SUBQ 02/27/17 21:00 03/29/17 20:59 03/01/17 11:58 Lorazepam (Ativan 2mg/ml 1ml) 0.5 mg Q4H PRN IV For Anxiety 02/27/17 19:30 03/06/17 19:29 Morphine Sulfate (Morphine Sulfate) 1 mg Q4H PRN IVP For Pain 02/27/17 20:00 03/06/17 19:59 Ondansetron HCl (Zofran) 4 mg Q6H PRN IVP Nausea & Vomiting 02/27/17 19:30 03/29/17 19:29 02/28/17 17:32 Pantoprazole (Protonix) 40 mg EVERY 12 HOURS ORAL 03/01/17 13:00 03/31/17 12:59 03/01/17 13:12 Polyethylene Glycol (Miralax) 17 gm HSPRN PRN ORAL Constipation 02/27/17 19:30 03/29/17 19:29 Warfarin Sodium (Coumadin per pharmacy) 1 ea DAILY PRN MISC Per rx protocol 02/28/17 10:00 03/30/17 09:59 Warfarin Sodium (Coumadin) 6 mg COUMADIN ONCE ORAL 03/01/17 17:00 03/01/17 17:01 Zolpidem Tartrate (Ambien) 5 mg HSPRN PRN ORAL Insomnia 02/27/17 19:30 03/29/17 19:29 Allergies: Coded Allergies: No Known Allergies (Unverified , 09/17/16) ROS Limited/Unobtainable: No Constitutional: Reports: no symptoms HEENT: Reports: no symptoms Cardiovascular: Reports: no symptoms Respiratory: Reports: shortness of breath Gastrointestinal/Abdominal: Reports: no symptoms Genitourinary: Reports: no symptoms Neurologic/Psychiatric: Reports: no symptoms Subjective 71 YO F admitted with shortness of breath and Bradycardia. ICU. Cover for Int Med-Dr Real. Continues on dopamine Objective Last Vital Signs Date Time Temp Pulse Resp B/P Pulse Ox O2 Delivery O2 Flow Rate FiO2 03/01/17 13:00 55 20 146/41 100 Nasal Cannula 2.0 03/01/17 12:00 98.1 General Appearance: WD/WN, no apparent distress, alert EENT: PERRL/EOMI, normal ENT inspection Neck: non-tender, normal alignment, supple, normal inspection Cardiovascular: normal peripheral pulses, no gallop/murmur, no JVD, bradycardia Respiratory/Chest: chest wall non-tender, lungs clear, normal breath sounds, no respiratory distress, no accessory muscle use Abdomen: normal bowel sounds, non tender, soft, no organomegaly, no mass Extremities: normal range of motion 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, no motor/sensory deficits Skin: normal pigmentation, warm/dry Laboratory Tests Test 03/01/17 04:15 White Blood Count 7.1 K/UL (4.8-10.8) Red Blood Count 3.20 M/UL (4.20-5.40) L Hemoglobin 9.2 G/DL (12.0-16.0) L Hematocrit 28.7 % (37.0-47.0) L Mean Corpuscular Volume 90 FL (80-99) Mean Corpuscular Hemoglobin 28.7 PG (27.0-31.0) Mean Corpuscular Hemoglobin Concent 32.0 G/DL (32.0-36.0) Red Cell Distribution Width 15.0 % (11.6-14.8) H Platelet Count 159 K/UL (150-450) Mean Platelet Volume 7.3 FL (6.5-10.1) Neutrophils (%) (Auto) 77.1 % (45.0-75.0) H Lymphocytes (%) (Auto) 10.8 % (20.0-45.0) L Monocytes (%) (Auto) 10.2 % (1.0-10.0) H Eosinophils (%) (Auto) 1.4 % (0.0-3.0) Basophils (%) (Auto) 0.5 % (0.0-2.0) Prothrombin Time 24.3 SEC (9.30-11.50) H Prothromb Time International Ratio 2.3 (0.9-1.1) H Sodium Level 142 mEQ/L (135-145) Potassium Level 3.9 mEQ/L (3.4-4.9) Chloride Level 101 mEQ/L (98-107) Carbon Dioxide Level 25 mEQ/L (20-30) Anion Gap 16 (5-15) H Blood Urea Nitrogen 27 mg/dL (7-23) H Creatinine 1.0 mg/dL (0.5-0.9) H Estimat Glomerular Filtration Rate mL/min (>60) Glucose Level 175 mg/dL (74-106) H Calcium Level 8.9 mg/dL (8.6-10.2) Troponin I < 0.30 ng/mL (<=0.30) Pro-B-Type Natriuretic Peptide 724 pg/mL (0-125) H Intake and Output 02/28/17 03/01/17 19:00 07:00 Intake Total 584.09 ml 250 ml Output Total 1780 ml 690 ml Balance -1195.91 ml -440 ml Intake Oral 390 ml 250 ml IV Total 194.09 ml Output Urine Total 1780 ml 690 ml Assessment/Plan Problem List: (1) Hypotension Assessment & Plan: cont dopamine. (2) Cerebral vascular disease (3) Sick sinus syndrome Assessment & Plan: await possible pacemaker-see cardiology note. (4) Aortic valve replaced (5) Bradycardia Assessment & Plan: D/C digoxin per cardiology (6) Atrial fibrillation (7) Diabetes mellitus Assessment & Plan: Continue novolog sliding scale. (8) Hypercholesteremia Status: not improved NIKKI TAYLOR Mar 01, 2017 15:06
[2017-03-01] MEDS ORDERED: Warfarin Sodium 3mg ORAL ONE (17:00)
[2017-03-01] MEDS: Dyna-Hex 2% Top Sol 8oz TOPIC SCH (20:59)
[2017-03-02] VITALS (48 sets, daily range): BP systolic 121–155; BP diastolic 32–85
[2017-03-02] MEDS: D5 1/2NS w/KCl 20mEq 1,000 ML IV SCH (05:15)
[2017-03-02 06:18] LABS: BASOPHILS % (AUTO) 0.5 % (0.0-2.0); EOSINOPHILS % (AUTO) 1.7 % (0.0-3.0); LYMPHOCYTES % (AUTO) 12.5 % (20.0-45.0); MEAN CORPUSCULAR HEMOGLOBIN 29.2 PG (27.0-31.0); MEAN CORPUSCULAR HGB CONC 32.2 G/DL (32.0-36.0); MEAN CORPUSCULAR VOLUME 90 FL (80-99); MEAN PLATELET VOLUME 7.8 FL (6.5-10.1); MONOCYTES % (AUTO) 7.7 % (1.0-10.0); NEUTROPHILS % (AUTO) 77.6 % (45.0-75.0); PLATELET COUNT 154 K/UL (150-450); RED BLOOD COUNT 3.09 M/UL (4.20-5.40); RED CELL DISTRIBUTION WIDTH 15.3 % (11.6-14.8); WHITE BLOOD COUNT 8.3 K/UL (4.8-10.8)
[2017-03-02 06:31] LABS: ALANINE AMINOTRANSFERASE 9 U/L (3-33); ALBUMIN/GLOBULIN RATIO 0.9 (1.0-2.7); ANION GAP 15 (5-15); ASPARTATE AMINO TRANSFERASE 18 U/L (5-40); CALCIUM 8.9 mg/dL (8.6-10.2); CARBON DIOXIDE 24 mEQ/L (20-30); CHLORIDE 101 mEQ/L (98-107); HEMOLYSIS 5; POTASSIUM 4.3 mEQ/L (3.4-4.9); SODIUM 140 mEQ/L (135-145); TOTAL PROTEIN 7.3 g/dL (6.6-8.7)
[2017-03-02 06:34] LABS: INR 2.4 (0.9-1.1); PROTHROMBIN TIME 25.7 SEC (9.30-11.50)
[2017-03-02] MEDS: NovoLOG Insulin Flexpen SUBQ SCH ×4 (06:49→21:18)
--- NOTE | 2017-03-02 08:52 | Diagnostic Imaging Report ---
Indications: Chest pain Technique: Portable AP chest Findings: Comparison: 09/09/2016 Cardiac silhouette remains enlarged. Pulmonary vasculature remains within normal limits. Linear density currently noted in right lung base. Left lung remains clear. Prominence of main pulmonary dural segment, aortic arch calcification and ectasia, sternal wires, old rib fractures are again noted. IMPRESSION: Development of subsegmental atelectasis right lung base Otherwise no evidence of acute cardiopulmonary disease, unchanged Stable chronic changes as described
--- NOTE | 2017-03-02 10:54 | Pulmonolgy Critical Care Note ---
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, 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 with: nurses, consultants, other - all notes reviewed, she will probably need a permanent pace maker Critical Care - Objective Last 24 Hour Vital Signs Date Time Temp Pulse Resp B/P Pulse Ox O2 Delivery O2 Flow Rate FiO2 03/02/17 09:00 58 19 136/44 100 Nasal Cannula 2.0 03/02/17 08:30 55 22 132/47 100 Nasal Cannula 2.0 03/02/17 08:00 99.2 60 26 132/42 100 Nasal Cannula 2.0 03/02/17 08:00 59 03/02/17 07:30 57 16 144/39 100 Nasal Cannula 2.0 03/02/17 07:00 57 15 135/47 100 Nasal Cannula 2.0 03/02/17 06:30 40 14 149/49 100 Nasal Cannula 2.0 03/02/17 06:00 60 19 146/54 100 Nasal Cannula 2.0 03/02/17 06:00 146/54 03/02/17 05:30 56 22 144/37 100 Nasal Cannula 2.0 03/02/17 05:00 52 20 137/38 100 Nasal Cannula 2.0 03/02/17 05:00 137/38 03/02/17 04:30 98.0 58 18 137/39 100 Nasal Cannula 2.0 03/02/17 04:00 59 16 129/50 100 Nasal Cannula 2.0 03/02/17 04:00 129/50 03/02/17 04:00 59 03/02/17 03:30 58 16 144/47 100 Nasal Cannula 2.0 03/02/17 03:00 149/50 03/02/17 03:00 59 16 149/50 100 Nasal Cannula 2.0 03/02/17 02:30 59 21 135/44 99 Nasal Cannula 2.0 03/02/17 02:00 135/44 03/02/17 02:00 50 21 147/47 100 Nasal Cannula 2.0 03/02/17 01:30 58 20 149/46 100 Nasal Cannula 2.0 03/02/17 01:00 143/44 03/02/17 01:00 58 16 143/44 100 Nasal Cannula 2.0 03/02/17 00:30 55 17 131/41 100 Nasal Cannula 2.0 03/02/17 00:00 45 03/02/17 00:00 149/47 03/02/17 00:00 98.8 45 16 149/47 100 Nasal Cannula 2.0 03/01/17 23:30 55 23 153/46 100 Nasal Cannula 2.0 03/01/17 23:00 55 21 139/54 100 Nasal Cannula 2.0 03/01/17 23:00 139/54 03/01/17 22:30 55 22 150/46 100 Nasal Cannula 2.0 03/01/17 22:00 154/49 03/01/17 22:00 56 23 154/49 100 Nasal Cannula 2.0 03/01/17 21:30 57 22 144/48 100 Nasal Cannula 2.0 03/01/17 21:00 40 22 115/21 100 Nasal Cannula 2.0 03/01/17 21:00 148/46 03/01/17 20:30 57 23 148/46 100 Nasal Cannula 2.0 03/01/17 20:00 98.4 57 24 122/47 100 Nasal Cannula 2.0 03/01/17 20:00 57 03/01/17 19:30 55 22 116/76 100 Nasal Cannula 2.0 03/01/17 19:00 55 23 154/48 100 Nasal Cannula 2.0 03/01/17 18:30 55 23 139/48 100 Nasal Cannula 2.0 03/01/17 18:00 54 20 154/45 100 Nasal Cannula 2.0 03/01/17 17:30 55 25 146/45 100 Nasal Cannula 2.0 03/01/17 17:00 55 22 161/47 100 Nasal Cannula 2.0 03/01/17 16:30 56 19 163/48 100 Nasal Cannula 2.0 03/01/17 16:00 55 03/01/17 16:00 98.7 47 17 147/49 100 Nasal Cannula 2.0 03/01/17 15:30 55 17 156/46 100 Nasal Cannula 2.0 03/01/17 15:00 54 17 157/44 100 Nasal Cannula 2.0 03/01/17 14:30 47 20 137/39 100 Nasal Cannula 2.0 03/01/17 14:00 55 20 155/47 100 Nasal Cannula 2.0 03/01/17 13:30 54 22 145/44 100 Nasal Cannula 2.0 03/01/17 13:00 55 20 146/41 100 Nasal Cannula 2.0 03/01/17 12:30 55 14 148/41 100 Nasal Cannula 2.0 03/01/17 12:30 56 19 133/41 100 Nasal Cannula 2.0 03/01/17 12:00 55 03/01/17 12:00 98.1 57 16 148/43 100 Nasal Cannula 2.0 03/01/17 11:30 55 14 148/41 100 Nasal Cannula 2.0 03/01/17 11:00 57 16 136/48 100 Nasal Cannula 2.0 Status: awake Condition: critical, grave HEENT: atraumatic Neck: full ROM Lungs: chest wall tender Heart: HR/BP stable, HR/BP unstable Abdomen: active bowel sounds, feeding tube Extremities: no C/C/E, edema Decubiti: location Micro: Microbiology Date/Time Source Procedure Growth Status 02/28/17 04:00 Nasal Nares MRSA Culture - Final NO METHICILLIN RESISTANT STAPH AUREUS... Complete 02/28/17 04:00 Rectum VRE Culture - Final NO VANCOMYCIN RESISTANT ENTEROCOCCUS ... Complete Accucheck: 190 Critical Care - Subjective ROS Limited/Unobtainable: No ICU Day: 3 Intubation Day: 3 Condition: critical EKG Rhythm: Sinus Rhythm Fluids: 1/2 NS 50 cc.hour Drips: Dopamin drip I&O: Intake and Output 03/01/17 03/02/17 19:00 07:00 Intake Total 840 ml 847.0 ml Output Total 585 ml 800 ml Balance 255 ml 47.0 ml Intake Oral 290 ml 120 ml IV Total 550 ml 727.0 ml Output Urine Total 585 ml 800 ml # Voids 1 CXR: no acute change Labs: Laboratory Tests Test 03/02/17 04:50 White Blood Count 8.3 K/UL (4.8-10.8) Red Blood Count 3.09 M/UL (4.20-5.40) L Hemoglobin 9.0 G/DL (12.0-16.0) L Hematocrit 28.0 % (37.0-47.0) L Mean Corpuscular Volume 90 FL (80-99) Mean Corpuscular Hemoglobin 29.2 PG (27.0-31.0) Mean Corpuscular Hemoglobin Concent 32.2 G/DL (32.0-36.0) Red Cell Distribution Width 15.3 % (11.6-14.8) H Platelet Count 154 K/UL (150-450) Mean Platelet Volume 7.8 FL (6.5-10.1) Neutrophils (%) (Auto) 77.6 % (45.0-75.0) H Lymphocytes (%) (Auto) 12.5 % (20.0-45.0) L Monocytes (%) (Auto) 7.7 % (1.0-10.0) Eosinophils (%) (Auto) 1.7 % (0.0-3.0) Basophils (%) (Auto) 0.5 % (0.0-2.0) Prothrombin Time 25.7 SEC (9.30-11.50) H Prothromb Time International Ratio 2.4 (0.9-1.1) H Sodium Level 140 mEQ/L (135-145) Potassium Level 4.3 mEQ/L (3.4-4.9) Chloride Level 101 mEQ/L (98-107) Carbon Dioxide Level 24 mEQ/L (20-30) Anion Gap 15 (5-15) Blood Urea Nitrogen 21 mg/dL (7-23) Creatinine 1.0 mg/dL (0.5-0.9) H Estimat Glomerular Filtration Rate mL/min (>60) Glucose Level 198 mg/dL (74-106) H Calcium Level 8.9 mg/dL (8.6-10.2) Total Bilirubin 0.8 mg/dL (0.0-1.2) Aspartate Amino Transf (AST/SGOT) 18 U/L (5-40) Alanine Aminotransferase (ALT/SGPT) 9 U/L (3-33) Alkaline Phosphatase 142 U/L (35-104) H Pro-B-Type Natriuretic Peptide 800 pg/mL (0-125) H Total Protein 7.3 g/dL (6.6-8.7) Albumin 3.6 g/dL (3.5-5.2) Globulin 3.7 g/dL Albumin/Globulin Ratio 0.9 (1.0-2.7) L MAC FARIAS Mar 02, 2017 10:54
--- NOTE | 2017-03-02 11:40 | Diagnostic Imaging Report ---
Indication: DYSPNEA Technique: One view of the chest Comparison: 02/27/2017 Findings: The heart is enlarged. The lungs and pleural spaces are clear. Transcutaneous pacemaker overlies the chest. Findings are unchanged. Impression: Unchanged, over 3 days, findings as above.
[2017-03-02] MEDS: DOPamine 400mg/250ml 250 ML IV PRN (12:00)
[2017-03-02] MEDS: Lidocaine 1% Plain 30 ml INJ ONE (15:00)
[2017-03-02] MEDS: Heparin 2000 units/Ns 1000ml INJ SCH (15:00)
[2017-03-02] MEDS ORDERED: Sodium Bicarbonate 4% 2.4meq/5ml vial INJ ONE (15:00)
--- NOTE | 2017-03-02 18:28 | Internal Med Progress Note ---
Subjective Date of Service: Mar 02, 2017 Physician Name Nikki Taylor Attending Physician Kobi Real MD Current Medications Medications (Trade) Dose Ordered Sig/Grisel Route PRN Reason Start Time Stop Time Status Last Admin Dose Admin Acetaminophen (Tylenol) 650 mg Q4H PRN ORAL fever 02/27/17 19:30 03/29/17 19:29 Al Hydroxide/Mg Hydroxide (Mylanta II) 30 ml Q6H PRN ORAL dyspepsia 02/27/17 19:30 03/29/17 19:29 Atropine Sulfate (Atropine 1mg/ml Inj) 0.5 mg Q3H PRN IVP HR less than 30 BPM 02/28/17 17:00 03/30/17 16:59 Chlorhexidine Gluconate 1 applic 1 applic BEDTIME TOPIC 02/28/17 21:00 03/30/17 20:59 03/01/17 20:59 Dextrose (Dextrose 50%) STAT PRN IV Hypoglycemia 02/27/17 19:30 03/29/17 19:29 Dopamine HCl/ Dextrose (DOPamine 400mg/ 250ml) 250 ml @ 0 mls/hr Q24H PRN IV Bradycardia 02/28/17 15:30 03/30/17 15:29 03/02/17 12:00 Furosemide (Lasix) 40 mg DAILY IV 02/28/17 09:00 03/30/17 08:59 03/02/17 10:20 Heparin Sodium/ Sodium Chloride (Heparin 2000 units/Ns 1000ml premix) 2,000 unit ONCE INJ 03/02/17 15:00 04/01/17 14:59 Insulin Aspart (NovoLOG) BEFORE MEALS AND HS SUBQ 02/27/17 21:00 03/29/17 20:59 03/02/17 16:56 Lorazepam (Ativan 2mg/ml 1ml) 0.5 mg Q4H PRN IV For Anxiety 02/27/17 19:30 03/06/17 19:29 Morphine Sulfate (Morphine Sulfate) 1 mg Q4H PRN IVP For Pain 02/27/17 20:00 03/06/17 19:59 Ondansetron HCl (Zofran) 4 mg Q6H PRN IVP Nausea & Vomiting 02/27/17 19:30 03/29/17 19:29 02/28/17 17:32 Pantoprazole (Protonix) 40 mg EVERY 12 HOURS ORAL 03/01/17 13:00 03/31/17 12:59 03/02/17 10:19 Polyethylene Glycol (Miralax) 17 gm HSPRN PRN ORAL Constipation 02/27/17 19:30 03/29/17 19:29 Zolpidem Tartrate (Ambien) 5 mg HSPRN PRN ORAL Insomnia 02/27/17 19:30 03/29/17 19:29 Allergies: Coded Allergies: No Known Allergies (Unverified , 09/17/16) ROS Limited/Unobtainable: No Constitutional: Reports: no symptoms HEENT: Reports: no symptoms Cardiovascular: Reports: no symptoms Respiratory: Reports: shortness of breath Gastrointestinal/Abdominal: Reports: no symptoms Genitourinary: Reports: no symptoms Neurologic/Psychiatric: Reports: no symptoms Subjective 71 YO F admitted with shortness of breath and Bradycardia. ICU. Cover for Int Sunny-Dr Real. Continues on dopamine Objective Last Vital Signs Date Time Temp Pulse Resp B/P Pulse Ox O2 Delivery O2 Flow Rate FiO2 03/02/17 17:30 60 22 150/49 100 Nasal Cannula 2.0 03/02/17 16:00 98.1 Laboratory Tests Test 03/02/17 04:50 White Blood Count 8.3 K/UL (4.8-10.8) Red Blood Count 3.09 M/UL (4.20-5.40) L Hemoglobin 9.0 G/DL (12.0-16.0) L Hematocrit 28.0 % (37.0-47.0) L Mean Corpuscular Volume 90 FL (80-99) Mean Corpuscular Hemoglobin 29.2 PG (27.0-31.0) Mean Corpuscular Hemoglobin Concent 32.2 G/DL (32.0-36.0) Red Cell Distribution Width 15.3 % (11.6-14.8) H Platelet Count 154 K/UL (150-450) Mean Platelet Volume 7.8 FL (6.5-10.1) Neutrophils (%) (Auto) 77.6 % (45.0-75.0) H Lymphocytes (%) (Auto) 12.5 % (20.0-45.0) L Monocytes (%) (Auto) 7.7 % (1.0-10.0) Eosinophils (%) (Auto) 1.7 % (0.0-3.0) Basophils (%) (Auto) 0.5 % (0.0-2.0) Prothrombin Time 25.7 SEC (9.30-11.50) H Prothromb Time International Ratio 2.4 (0.9-1.1) H Sodium Level 140 mEQ/L (135-145) Potassium Level 4.3 mEQ/L (3.4-4.9) Chloride Level 101 mEQ/L (98-107) Carbon Dioxide Level 24 mEQ/L (20-30) Anion Gap 15 (5-15) Blood Urea Nitrogen 21 mg/dL (7-23) Creatinine 1.0 mg/dL (0.5-0.9) H Estimat Glomerular Filtration Rate mL/min (>60) Glucose Level 198 mg/dL (74-106) H Calcium Level 8.9 mg/dL (8.6-10.2) Total Bilirubin 0.8 mg/dL (0.0-1.2) Aspartate Amino Transf (AST/SGOT) 18 U/L (5-40) Alanine Aminotransferase (ALT/SGPT) 9 U/L (3-33) Alkaline Phosphatase 142 U/L (35-104) H Pro-B-Type Natriuretic Peptide 800 pg/mL (0-125) H Total Protein 7.3 g/dL (6.6-8.7) Albumin 3.6 g/dL (3.5-5.2) Globulin 3.7 g/dL Albumin/Globulin Ratio 0.9 (1.0-2.7) L Microbiology Date/Time Source Procedure Growth Status 02/28/17 04:00 Nasal Nares MRSA Culture - Final NO METHICILLIN RESISTANT STAPH AUREUS... Complete 02/28/17 04:00 Rectum VRE Culture - Final NO VANCOMYCIN RESISTANT ENTEROCOCCUS ... Complete Intake and Output 03/01/17 03/02/17 19:00 07:00 Intake Total 840 ml 914.701 ml Output Total 585 ml 800 ml Balance 255 ml 114.701 ml Intake Oral 290 ml 120 ml IV Total 550 ml 794.701 ml Output Urine Total 585 ml 800 ml # Voids 1 Objective General Appearance: WD/WN, no apparent distress, alert EENT: PERRL/EOMI, normal ENT inspection Neck: non-tender, normal alignment, supple, normal inspection Cardiovascular: normal peripheral pulses, no gallop/murmur, no JVD, bradycardia Respiratory/Chest: chest wall non-tender, lungs clear, normal breath sounds, no respiratory distress, no accessory muscle use Abdomen: normal bowel sounds, non tender, soft, no organomegaly, no mass Extremities: normal range of motion Neurologic: engineer conductor II-XII 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, no motor/sensory deficits Skin: normal pigmentation, warm/dry Assessment/Plan Problem List: (1) Hypotension Assessment & Plan: cont dopamine. (2) Cerebral vascular disease (3) Sick sinus syndrome Assessment & Plan: await possible pacemaker-see cardiology note. (4) Aortic valve replaced (5) Bradycardia Assessment & Plan: D/C digoxin per cardiology (6) Atrial fibrillation (7) Diabetes mellitus Assessment & Plan: Continue novolog sliding scale. (8) Hypercholesteremia INKKI TAYLOR Mar 02, 2017 18:28
--- NOTE | 2017-03-02 18:59 | Cardiac Electrophysiology PN ---
Assessment/Plan Assessment/Plan 1. Profound bradycardia. Still junctional despite Dopamine and Off AVN krupa for 4 days now.Also at risk of recurrence of atrial fibrillation with rapid ventricular response off AVN krupa. Proceed with PPM when INR less than 1.8. Will give Vit K 5 mg sq today. 2. Status post prosthetic aortic valve replacement. Coumadin on hold for pacer implant. 3. History of paroxysmal atrial fibrillation with rapid ventricular response. Last echocardiogram in September of 2016 showed ejection fraction of 55% to 60% .Start BB after pacer. 4. Anemia. 5. Azotemia. BUN of 46 and creatinine 1.2. 6. Congestive heart failure, due to diastolic dysfunction. BNP of 739. Continue Lasix 40 mg IV daily. KANDY RN Subjective Subjective Still in Junctional rhythm in ICU despite being on 10 Mcg of Dopamine. OFF any BAUER or AVN krupa for >72 hours. Objective Last 24 Hour Vital Signs Date Time Temp Pulse Resp B/P Pulse Ox O2 Delivery O2 Flow Rate FiO2 03/02/17 18:30 51 22 121/51 100 Nasal Cannula 2.0 03/02/17 18:00 57 22 136/48 100 Nasal Cannula 2.0 03/02/17 17:30 60 22 150/49 100 Nasal Cannula 2.0 03/02/17 17:00 57 22 145/47 100 Nasal Cannula 2.0 03/02/17 16:30 58 23 152/42 100 Nasal Cannula 2.0 03/02/17 16:00 58 03/02/17 16:00 98.1 57 21 144/32 100 Nasal Cannula 2.0 03/02/17 15:30 56 21 145/49 100 Nasal Cannula 2.0 03/02/17 15:00 57 22 151/48 100 Nasal Cannula 2.0 03/02/17 14:30 45 19 144/85 100 Nasal Cannula 2.0 03/02/17 14:00 57 20 144/44 100 Nasal Cannula 2.0 03/02/17 13:30 97.7 57 23 142/40 100 Nasal Cannula 2.0 03/02/17 13:00 58 24 149/48 100 Nasal Cannula 2.0 03/02/17 12:30 58 23 148/48 100 Nasal Cannula 2.0 03/02/17 12:00 58 23 155/45 100 Nasal Cannula 2.0 03/02/17 12:00 58 03/02/17 12:00 155/45 03/02/17 11:30 59 23 147/46 100 Nasal Cannula 2.0 03/02/17 11:00 58 24 153/46 100 Nasal Cannula 2.0 03/02/17 10:30 59 23 135/49 100 Nasal Cannula 2.0 03/02/17 10:00 58 22 134/40 100 Nasal Cannula 2.0 03/02/17 09:30 58 20 125/39 100 Nasal Cannula 2.0 03/02/17 09:00 58 19 136/44 100 Nasal Cannula 2.0 03/02/17 08:30 55 22 132/47 100 Nasal Cannula 2.0 03/02/17 08:00 99.2 60 26 132/42 100 Nasal Cannula 2.0 03/02/17 08:00 59 03/02/17 07:30 57 16 144/39 100 Nasal Cannula 2.0 03/02/17 07:00 57 15 135/47 100 Nasal Cannula 2.0 03/02/17 06:30 40 14 149/49 100 Nasal Cannula 2.0 03/02/17 06:00 60 19 146/54 100 Nasal Cannula 2.0 03/02/17 06:00 146/54 03/02/17 05:30 56 22 144/37 100 Nasal Cannula 2.0 03/02/17 05:00 52 20 137/38 100 Nasal Cannula 2.0 03/02/17 05:00 137/38 03/02/17 04:30 98.0 58 18 137/39 100 Nasal Cannula 2.0 03/02/17 04:00 59 16 129/50 100 Nasal Cannula 2.0 03/02/17 04:00 129/50 03/02/17 04:00 59 03/02/17 03:30 58 16 144/47 100 Nasal Cannula 2.0 03/02/17 03:00 149/50 03/02/17 03:00 59 16 149/50 100 Nasal Cannula 2.0 03/02/17 02:30 59 21 135/44 99 Nasal Cannula 2.0 03/02/17 02:00 135/44 03/02/17 02:00 50 21 147/47 100 Nasal Cannula 2.0 03/02/17 01:30 58 20 149/46 100 Nasal Cannula 2.0 03/02/17 01:00 143/44 03/02/17 01:00 58 16 143/44 100 Nasal Cannula 2.0 03/02/17 00:30 55 17 131/41 100 Nasal Cannula 2.0 03/02/17 00:00 45 03/02/17 00:00 149/47 03/02/17 00:00 98.8 45 16 149/47 100 Nasal Cannula 2.0 03/01/17 23:30 55 23 153/46 100 Nasal Cannula 2.0 03/01/17 23:00 55 21 139/54 100 Nasal Cannula 2.0 03/01/17 23:00 139/54 03/01/17 22:30 55 22 150/46 100 Nasal Cannula 2.0 03/01/17 22:00 154/49 03/01/17 22:00 56 23 154/49 100 Nasal Cannula 2.0 03/01/17 21:30 57 22 144/48 100 Nasal Cannula 2.0 03/01/17 21:00 40 22 115/21 100 Nasal Cannula 2.0 03/01/17 21:00 148/46 03/01/17 20:30 57 23 148/46 100 Nasal Cannula 2.0 03/01/17 20:00 98.4 57 24 122/47 100 Nasal Cannula 2.0 03/01/17 20:00 57 03/01/17 19:30 55 22 116/76 100 Nasal Cannula 2.0 03/01/17 19:00 55 23 154/48 100 Nasal Cannula 2.0 Intake and Output 03/01/17 03/02/17 19:00 07:00 Intake Total 840 ml 914.701 ml Output Total 585 ml 800 ml Balance 255 ml 114.701 ml Intake Oral 290 ml 120 ml IV Total 550 ml 794.701 ml Output Urine Total 585 ml 800 ml # Voids 1 Laboratory Tests Test 03/02/17 04:50 White Blood Count 8.3 K/UL (4.8-10.8) Red Blood Count 3.09 M/UL (4.20-5.40) L Hemoglobin 9.0 G/DL (12.0-16.0) L Hematocrit 28.0 % (37.0-47.0) L Mean Corpuscular Volume 90 FL (80-99) Mean Corpuscular Hemoglobin 29.2 PG (27.0-31.0) Mean Corpuscular Hemoglobin Concent 32.2 G/DL (32.0-36.0) Red Cell Distribution Width 15.3 % (11.6-14.8) H Platelet Count 154 K/UL (150-450) Mean Platelet Volume 7.8 FL (6.5-10.1) Neutrophils (%) (Auto) 77.6 % (45.0-75.0) H Lymphocytes (%) (Auto) 12.5 % (20.0-45.0) L Monocytes (%) (Auto) 7.7 % (1.0-10.0) Eosinophils (%) (Auto) 1.7 % (0.0-3.0) Basophils (%) (Auto) 0.5 % (0.0-2.0) Prothrombin Time 25.7 SEC (9.30-11.50) H Prothromb Time International Ratio 2.4 (0.9-1.1) H Sodium Level 140 mEQ/L (135-145) Potassium Level 4.3 mEQ/L (3.4-4.9) Chloride Level 101 mEQ/L (98-107) Carbon Dioxide Level 24 mEQ/L (20-30) Anion Gap 15 (5-15) Blood Urea Nitrogen 21 mg/dL (7-23) Creatinine 1.0 mg/dL (0.5-0.9) H Estimat Glomerular Filtration Rate mL/min (>60) Glucose Level 198 mg/dL (74-106) H Calcium Level 8.9 mg/dL (8.6-10.2) Total Bilirubin 0.8 mg/dL (0.0-1.2) Aspartate Amino Transf (AST/SGOT) 18 U/L (5-40) Alanine Aminotransferase (ALT/SGPT) 9 U/L (3-33) Alkaline Phosphatase 142 U/L (35-104) H Pro-B-Type Natriuretic Peptide 800 pg/mL (0-125) H Total Protein 7.3 g/dL (6.6-8.7) Albumin 3.6 g/dL (3.5-5.2) Globulin 3.7 g/dL Albumin/Globulin Ratio 0.9 (1.0-2.7) L Microbiology Date/Time Source Procedure Growth Status 02/28/17 04:00 Nasal Nares MRSA Culture - Final NO METHICILLIN RESISTANT STAPH AUREUS... Complete 02/28/17 04:00 Rectum VRE Culture - Final NO VANCOMYCIN RESISTANT ENTEROCOCCUS ... Complete Objective HEAD AND NECK: No JVD or carotid bruits. LUNGS: Clear. CARDIOVASCULAR: Still hiram S1 and S2 with no gallop or murmur. ABDOMEN: Soft. EXTREMITIES: No pitting edema. Sternotomy scar is intact. AUTUMN BERRY Mar 02, 2017 18:59
[2017-03-02] MEDS ORDERED: Phytonadione 5 MG in D5W 55 ML IVPB ONE (19:00)
[2017-03-02] MEDS ORDERED: Phytonadione 10 mg/mL 1ml amp SUBQ ONE (19:30)
--- NOTE | 2017-03-02 20:16 | Cardiology Report ---
APPROVED REPORT EKG Measurement Heart [id number] AK 230P [id number] Sinus rhythm Left bundle branch block Abnormal ECG
[2017-03-02] MEDS ORDERED: Dyna-Hex 2% Top Sol 8oz TOPIC SCH (21:00)
[2017-03-02] MEDS: Dyna-Hex 2% Top Sol 8oz TOPIC SCH (21:17)
[2017-03-03] VITALS (38 sets, daily range): BP systolic 96–158; BP diastolic 37–57
[2017-03-03] MEDS: DOPamine 400mg/250ml 250 ML IV PRN ×2 (00:44→16:23)
[2017-03-03 05:09] LABS: BASOPHILS % (AUTO) 0.6 % (0.0-2.0); EOSINOPHILS % (AUTO) 2.9 % (0.0-3.0); LYMPHOCYTES % (AUTO) 13.7 % (20.0-45.0); MEAN CORPUSCULAR HEMOGLOBIN 28.7 PG (27.0-31.0); MEAN CORPUSCULAR HGB CONC 31.5 G/DL (32.0-36.0); MEAN CORPUSCULAR VOLUME 91 FL (80-99); MONOCYTES % (AUTO) 7.3 % (1.0-10.0); NEUTROPHILS % (AUTO) 75.4 % (45.0-75.0); PLATELET COUNT 134 K/UL (150-450); RED BLOOD COUNT 3.08 M/UL (4.20-5.40); WHITE BLOOD COUNT 7.7 K/UL (4.8-10.8)
[2017-03-03 05:17] LABS: INR 1.6 (0.9-1.1); PROTHROMBIN TIME 16.6 SEC (9.30-11.50)
[2017-03-03] MEDS: D5 1/2NS 1,000 ML IV SCH (05:26)
[2017-03-03 05:41] LABS: ALANINE AMINOTRANSFERASE 8 U/L (3-33); ALBUMIN/GLOBULIN RATIO 0.8 (1.0-2.7); ANION GAP 15 (5-15); ASPARTATE AMINO TRANSFERASE 16 U/L (5-40); CARBON DIOXIDE 24 mEQ/L (20-30); CHLORIDE 103 mEQ/L (98-107); CREATININE 1.1 mg/dL (0.5-0.9); HEMOLYSIS 1; MAGNESIUM 2.1 mg/dL (1.7-2.5); PHOSPHORUS 3.1 mg/dL (2.5-4.8); POTASSIUM 4.7 mEQ/L (3.4-4.9); SODIUM 142 mEQ/L (135-145); TOTAL PROTEIN 7.4 g/dL (6.6-8.7)
[2017-03-03] MEDS: NovoLOG Insulin Flexpen SUBQ SCH ×4 (05:55→21:00)
--- NOTE | 2017-03-03 08:31 | Cardiology Report ---
APPROVED REPORT EXAM: Two-dimensional and M-mode echocardiogram with Doppler and color Doppler. INDICATION Bradycardia M-Mode DIMENSIONS IVSd1.2 (0.7-1.1cm)Left Atrium (MM)6.5 (1.6-4.0cm) LVDd4.9 (3.5-5.6cm)Aortic Root3.5 (2.0-3.7cm) PWd1.3 (0.7-1.1cm)Aortic Cusp Exc.1.6 (1.5-2.0cm) IVSs1.1 cm LVDs4.0 (2.5-4.0cm) PWs1.5 cm Technically difficult study due to poor acoustic windows. Normal left ventricular chamber size, systolic function, septal wall bouncing could be due to prior sternotomy. Left ventricular ejection fraction estimated to be 55-60%. No evidence of left ventricular hypertrophy. No evidence of pericardial fat or effusion. Severe bi-atrial enlargement. Moderate right ventricular enlargement by 2D. Bioprosthetic aortic valve replacement with mild prosthethic valvular stenosis based on V2-V1 Bernoulli's principle. Mechanical mitral valve prosthesis with associated reverbrations and normal function. There is no evidence of mechanical valvular stenosis. Mitral annulus and aortic root calcification. Pulmonic valve not well visualized. Normal tricuspid valve structure. IVC dilated at 2.7cm with no physiological collapse. RA pressure of 20mmHg. A color flow and spectral Doppler study was performed and revealed: Peak aortic valve gradient of 65 mmHg and a mean of 27 mmHg. Aortic valve area 1.1 cm2 calculated by continuity equation. Trace mitral regurgitation. Mitral P1/2 time of 90 m/s is compatible with a mitral valve area of 2.5 cm2 Peak mitral valve diastolic gradient of 14 mmHg and a mean gradient of 3mmHg Severe tricuspid regurgitation. Tricuspid systolic velocities suggests peak right ventricular systolic pressure of 53 mmHg Consistent with moderate pulmonary hypertension. Pulmonic regurgitation present.
[2017-03-03 09:12] LABS: ABG BASE EXCESS -0.4; ABG PCO2 34.3 mmHg (35.0-45.0)
--- NOTE | 2017-03-03 09:51 | Pulmonolgy Critical Care Note ---
Critical Care - Asmt/Plan Problems: (1) Bradycardia (2) Diabetes mellitus (3) Atrial fibrillation (4) ATN (acute tubular necrosis) (5) Hypoalbuminemia (6) Expressive aphasia (7) Status post mitral valve replacement Respiratory: adjust tidal volume, adjust FIO2 Cardiac: continue pressors, other - scheduled for pacemake today Renal: F/U I&O, keep IV fluid Infectious Disease: check cultures Gastrointestinal: continue feedings/current rate Endocrine: monitor blood sugar, continue sliding scale insulin Hematologic: monitor H/H, transfuse if hgb<8.5 Neurologic: PRN Ativan, PRN Morphine, keep patient comfortable Affect: PRN ativan Prophylaxis: Protonix Disposition: keep in ICU Notes Reviewed: social media sr strategy manager, 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 with: nurses, consultants, mattress spring encasermanufacturing engineering manager - Objective Last 24 Hour Vital Signs Date Time Temp Pulse Resp B/P Pulse Ox O2 Delivery O2 Flow Rate FiO2 03/03/17 09:30 58 16 130/54 100 Nasal Cannula 2.0 03/03/17 09:00 58 16 133/54 100 Nasal Cannula 2.0 03/03/17 08:30 60 18 131/51 100 Nasal Cannula 2.0 03/03/17 08:00 59 03/03/17 08:00 59 16 147/56 98 Nasal Cannula 2.0 03/03/17 07:30 60 14 154/52 100 Nasal Cannula 2.0 03/03/17 07:10 52 14 Room Air 03/03/17 07:10 100 Nasal Cannula 2.0 28 03/03/17 07:10 Nasal Cannula 2.0 28 03/03/17 07:00 99.1 58 15 142/44 100 Nasal Cannula 2.0 03/03/17 06:30 60 13 137/50 100 Nasal Cannula 2.0 03/03/17 06:00 157/37 03/03/17 06:00 60 13 157/37 100 Nasal Cannula 2.0 03/03/17 05:30 62 18 139/42 100 Nasal Cannula 2.0 03/03/17 05:00 61 15 148/45 100 Nasal Cannula 2.0 03/03/17 05:00 148/45 03/03/17 04:30 99.0 57 19 138/48 100 Nasal Cannula 2.0 03/03/17 04:00 53 14 146/52 100 Nasal Cannula 2.0 03/03/17 04:00 53 03/03/17 04:00 146/52 03/03/17 03:30 60 18 146/48 100 Nasal Cannula 2.0 03/03/17 03:00 144/45 03/03/17 03:00 55 15 144/45 100 Nasal Cannula 2.0 03/03/17 02:30 58 15 145/55 100 Nasal Cannula 2.0 03/03/17 02:00 150/52 03/03/17 02:00 58 14 150/52 100 Nasal Cannula 2.0 03/03/17 01:30 53 14 156/52 100 Nasal Cannula 2.0 03/03/17 01:00 53 14 152/50 100 Nasal Cannula 2.0 03/03/17 01:00 152/50 03/03/17 00:44 154/50 03/03/17 00:30 54 14 154/50 100 Nasal Cannula 2.0 03/03/17 00:00 55 03/03/17 00:00 148/49 03/03/17 00:00 98.0 55 14 148/49 100 Nasal Cannula 2.0 03/02/17 23:30 57 15 148/51 100 Nasal Cannula 2.0 03/02/17 23:00 58 14 137/38 100 Nasal Cannula 2.0 03/02/17 23:00 137/38 03/02/17 22:30 55 14 148/48 100 Nasal Cannula 2.0 03/02/17 22:00 57 15 152/47 100 Nasal Cannula 2.0 03/02/17 22:00 152/47 03/02/17 21:30 57 21 155/46 100 Nasal Cannula 2.0 03/02/17 21:00 133/52 03/02/17 21:00 53 21 133/52 100 Nasal Cannula 2.0 03/02/17 20:30 57 16 144/47 100 Nasal Cannula 2.0 03/02/17 20:00 98.2 59 24 152/49 100 Nasal Cannula 2.0 03/02/17 20:00 59 03/02/17 19:30 58 24 144/44 100 Nasal Cannula 2.0 03/02/17 19:00 49 24 131/46 100 Nasal Cannula 2.0 03/02/17 18:30 51 22 121/51 100 Nasal Cannula 2.0 03/02/17 18:00 57 22 136/48 100 Nasal Cannula 2.0 03/02/17 17:30 60 22 150/49 100 Nasal Cannula 2.0 03/02/17 17:00 57 22 145/47 100 Nasal Cannula 2.0 03/02/17 16:30 58 23 152/42 100 Nasal Cannula 2.0 03/02/17 16:00 58 03/02/17 16:00 98.1 57 21 144/32 100 Nasal Cannula 2.0 03/02/17 15:30 56 21 145/49 100 Nasal Cannula 2.0 03/02/17 15:00 57 22 151/48 100 Nasal Cannula 2.0 03/02/17 14:30 45 19 144/85 100 Nasal Cannula 2.0 03/02/17 14:00 57 20 144/44 100 Nasal Cannula 2.0 03/02/17 13:30 97.7 57 23 142/40 100 Nasal Cannula 2.0 03/02/17 13:00 58 24 149/48 100 Nasal Cannula 2.0 03/02/17 12:30 58 23 148/48 100 Nasal Cannula 2.0 03/02/17 12:00 58 23 155/45 100 Nasal Cannula 2.0 03/02/17 12:00 58 03/02/17 12:00 155/45 03/02/17 11:30 59 23 147/46 100 Nasal Cannula 2.0 03/02/17 11:00 58 24 153/46 100 Nasal Cannula 2.0 03/02/17 10:30 59 23 135/49 100 Nasal Cannula 2.0 03/02/17 10:00 58 22 134/40 100 Nasal Cannula 2.0 Status: awake Condition: critical, improving HEENT: atraumatic Neck: full ROM Lungs: clear Heart: irregular, murmur systolic Abdomen: soft, non-tender Extremities: no C/C/E, edema Decubiti: location Accucheck: 166 Critical Care - Subjective ROS Limited/Unobtainable: Yes ICU Day: 4 Interval Events: scheduled for pace maker today Condition: critical EKG Rhythm: Atrial Fibrillation FI02: 28 Fluids: d5 1/2 NS at 50 cc.hour Drips: Dopamin 10 ug/min I&O: Intake and Output 03/02/17 03/03/17 19:00 07:00 Intake Total 2378.710 ml 364.7 ml Output Total 600 ml 1000 ml Balance 1778.710 ml -635.3 ml Intake Oral 1940 ml 120 ml IV Total 394.710 ml 244.7 ml Other 44 ml Output Urine Total 600 ml 1000 ml # Voids 3 1 CXR: no change Labs: Laboratory Tests Test 03/03/17 04:20 03/03/17 09:02 White Blood Count 7.7 K/UL (4.8-10.8) Red Blood Count 3.08 M/UL (4.20-5.40) L Hemoglobin 8.8 G/DL (12.0-16.0) L Hematocrit 28.1 % (37.0-47.0) L Mean Corpuscular Volume 91 FL (80-99) Mean Corpuscular Hemoglobin 28.7 PG (27.0-31.0) Mean Corpuscular Hemoglobin Concent 31.5 G/DL (32.0-36.0) L Red Cell Distribution Width 15.0 % (11.6-14.8) H Platelet Count 134 K/UL (150-450) L Mean Platelet Volume 8.0 FL (6.5-10.1) Neutrophils (%) (Auto) 75.4 % (45.0-75.0) H Lymphocytes (%) (Auto) 13.7 % (20.0-45.0) L Monocytes (%) (Auto) 7.3 % (1.0-10.0) Eosinophils (%) (Auto) 2.9 % (0.0-3.0) Basophils (%) (Auto) 0.6 % (0.0-2.0) Prothrombin Time 16.6 SEC (9.30-11.50) H Prothromb Time International Ratio 1.6 (0.9-1.1) H Sodium Level 142 mEQ/L (135-145) Potassium Level 4.7 mEQ/L (3.4-4.9) Chloride Level 103 mEQ/L (98-107) Carbon Dioxide Level 24 mEQ/L (20-30) Anion Gap 15 (5-15) Blood Urea Nitrogen 23 mg/dL (7-23) Creatinine 1.1 mg/dL (0.5-0.9) H Estimat Glomerular Filtration Rate mL/min (>60) Glucose Level 166 mg/dL (74-106) H Calcium Level 9.0 mg/dL (8.6-10.2) Phosphorus Level 3.1 mg/dL (2.5-4.8) Magnesium Level 2.1 mg/dL (1.7-2.5) Total Bilirubin 0.9 mg/dL (0.0-1.2) Aspartate Amino Transf (AST/SGOT) 16 U/L (5-40) Alanine Aminotransferase (ALT/SGPT) 8 U/L (3-33) Alkaline Phosphatase 140 U/L (35-104) H Pro-B-Type Natriuretic Peptide 796 pg/mL (0-125) H Total Protein 7.4 g/dL (6.6-8.7) Albumin 3.4 g/dL (3.5-5.2) L Globulin 4.0 g/dL Albumin/Globulin Ratio 0.8 (1.0-2.7) L Arterial Blood pH 7.450 (7.350-7.450) Arterial Blood Partial Pressure CO2 34.3 mmHg (35.0-45.0) L Arterial Blood Partial Pressure O2 116.3 mmHg (75.0-100.0) H Arterial Blood HCO3 23.3 mmol/L (22.0-26.0) Arterial Blood Oxygen Saturation 98.0 % (92.0-98.0) Arterial Blood Base Excess -0.4 Gael Test MAC FARIAS Mar 03, 2017 09:51
--- NOTE | 2017-03-03 11:02 | Diagnostic Imaging Report ---
Indications: DYSPNEA Technique: Portable AP chest Findings: Comparison: 03/02/17 Cardiac silhouette remains markedly enlarged. Mild diffuse bilateral interstitial prominence unchanged. No new abnormality identified. IMPRESSION: No change from one day prior
--- NOTE | 2017-03-03 11:57 | Anethesia Preoperative Eval ---
Anesthesia Pre-op PMH/ROS General Date of Evaluation: Mar 03, 2017 Time of Evaluation: 11:49 Anesthesiologist: Floyd ASA Score: ASA 3 Mallampati Score Class I : Soft palate, uvula, fauces, pillars visible Class II: Soft palate, uvula, fauces visible Class III: Soft palate, base of uvula visible Class IV: Only hard plate visible Mallampati Classification: Class II Surgeon: Desmond Diagnosis: Symptomatic bradycardia Surgical Procedure: Permanent pacemaker placement Anesthesia History: none Family History: no anesthesia problems Allergies: Coded Allergies: No Known Allergies (Unverified , 09/17/16) Medications: see eMAR Past Medical History Cardiovascular: Reports: HTN, arrhythmia - A fib., valve dz - s/p aortic and mitral valves replacement, Denies: CAD, ME, other Pulmonary: Denies: COPD, RADHA, asthma, other Gastrointestinal/Genitourinary: Reports: CRI, GERD, Denies: ESRD, other Neurologic/Psychiatric: Reports: depression/anxiety, Denies: CVA, TIA, dementia, other Endocrine: Reports: DM, Denies: hypothyroidism, other, steroids HEENT: Denies: [place] (L), [place] (R), cataract (L), cataract (R), glaucoma, other Hematology/Immune: Reports: anemia - of chronic d-s, Denies: DVT, bleeding disorder, other Musculoskeletal/Integumentary: Reports: DJD, RA Other: other - malnourished PMH Narrative: admitted with syncopal episode persistent bradycardia, cardiology recommends permanent pacer placement. PSxH Narrative: Aortic and mitral valve replacement Anesthesia Pre-op Phys. Exam Physician Exam Last Vital Signs Date Time Temp Pulse Resp B/P Pulse Ox O2 Delivery O2 Flow Rate FiO2 03/03/17 11:30 56 18 155/54 100 Nasal Cannula 2.0 03/03/17 07:10 28 03/03/17 07:00 99.1 Constitutional: NAD Neurologic: CN 2-12 intact Cardiovascular: RRR Respiratory: CTA Gastrointestinal: S/NT/ND Airway Exam Mallampati Score: Class II MO: limited Neck: stiff ROM: limited Teeth: missing Dentures: no lower, no upper Anesthesia Pre-op A/P Labs Hematology Test 03/03/17 04:20 White Blood Count 7.7 K/UL (4.8-10.8) Red Blood Count 3.08 M/UL (4.20-5.40) L Hemoglobin 8.8 G/DL (12.0-16.0) L Hematocrit 28.1 % (37.0-47.0) L Mean Corpuscular Volume 91 FL (80-99) Mean Corpuscular Hemoglobin 28.7 PG (27.0-31.0) Mean Corpuscular Hemoglobin Concent 31.5 G/DL (32.0-36.0) L Red Cell Distribution Width 15.0 % (11.6-14.8) H Platelet Count 134 K/UL (150-450) L Mean Platelet Volume 8.0 FL (6.5-10.1) Neutrophils (%) (Auto) 75.4 % (45.0-75.0) H Lymphocytes (%) (Auto) 13.7 % (20.0-45.0) L Monocytes (%) (Auto) 7.3 % (1.0-10.0) Eosinophils (%) (Auto) 2.9 % (0.0-3.0) Basophils (%) (Auto) 0.6 % (0.0-2.0) Coagulation Test 03/03/17 04:20 03/03/17 11:35 Prothrombin Time 16.6 SEC (9.30-11.50) H Prothromb Time International Ratio 1.6 (0.9-1.1) H Activated Partial Thromboplast Time Pending Chemistry Test 03/03/17 04:20 Sodium Level 142 mEQ/L (135-145) Potassium Level 4.7 mEQ/L (3.4-4.9) Chloride Level 103 mEQ/L (98-107) Carbon Dioxide Level 24 mEQ/L (20-30) Anion Gap 15 (5-15) Blood Urea Nitrogen 23 mg/dL (7-23) Creatinine 1.1 mg/dL (0.5-0.9) H Estimat Glomerular Filtration Rate mL/min (>60) Glucose Level 166 mg/dL (74-106) H Calcium Level 9.0 mg/dL (8.6-10.2) Phosphorus Level 3.1 mg/dL (2.5-4.8) Magnesium Level 2.1 mg/dL (1.7-2.5) Total Bilirubin 0.9 mg/dL (0.0-1.2) Aspartate Amino Transf (AST/SGOT) 16 U/L (5-40) Alanine Aminotransferase (ALT/SGPT) 8 U/L (3-33) Alkaline Phosphatase 140 U/L (35-104) H Pro-B-Type Natriuretic Peptide 796 pg/mL (0-125) H Total Protein 7.4 g/dL (6.6-8.7) Albumin 3.4 g/dL (3.5-5.2) L Globulin 4.0 g/dL Albumin/Globulin Ratio 0.8 (1.0-2.7) L Risk Assessment & Plan Assessment: ASA 3 Plan: MAC Status Change Before Surgery: YAMIL Peterson M.D. Mar 03, 2017 11:57
--- NOTE | 2017-03-03 14:42 | Diagnostic Imaging Report ---
APPROVED REPORT CPT Code: 26306 Present Symptoms Shortness of breath Comments: Hx heart valve replacements. RIGHT LEG: Venous imaging reveals a patent deep venous system. There is no evidence of thrombus within the femoral, popliteal or tibial segments. The greater saphenous vein is also within normal limits. Doppler indicates normal spontaneous flow within these segments. There is a PICC line in the common femoral vein. The proximal superificial femoral vein was not visualized due to dressings. LEFT LEG: Venous imaging reveals a patent deep venous system. There is no evidence of thrombus within the femoral, popliteal or tibial segments. The greater saphenous vein is also within normal limits. Doppler indicates normal spontaneous flow within these segments.
[2017-03-03] MEDS ORDERED: Isovue-M 300 15ml INJ ONE ×2 (14:50→17:15)
[2017-03-03] MEDS ORDERED: Lidocaine 1% Plain 30 ml INJ ONE (15:00)
[2017-03-03] MEDS: Heparin 2000 units/Ns 1000ml INJ SCH (15:00)
[2017-03-03] MEDS ORDERED: D5 1/2NS 1000ml IV ONE (15:30)
--- NOTE | 2017-03-03 15:59 | Internal Med Progress Note ---
Subjective Date of Service: Mar 03, 2017 Physician Name Nikki Taylor Attending Physician Kobi Real MD Current Medications Medications (Trade) Dose Ordered Sig/Grisel Route PRN Reason Start Time Stop Time Status Last Admin Dose Admin Acetaminophen (Tylenol) 650 mg Q4H PRN ORAL fever 02/27/17 19:30 03/29/17 19:29 Al Hydroxide/Mg Hydroxide (Mylanta II) 30 ml Q6H PRN ORAL dyspepsia 02/27/17 19:30 03/29/17 19:29 Atropine Sulfate (Atropine 1mg/ml Inj) 0.5 mg Q3H PRN IVP HR less than 30 BPM 02/28/17 17:00 03/30/17 16:59 Chlorhexidine Gluconate 1 applic 1 applic BEDTIME TOPIC 02/28/17 21:00 03/30/17 20:59 03/02/17 21:17 Dextrose (Dextrose 50%) STAT PRN IV Hypoglycemia 02/27/17 19:30 03/29/17 19:29 Dextrose/Sodium Chloride (D5 0.45% NS) 1,000 ml @ 50 mls/hr Q20H IV 03/03/17 06:00 04/02/17 05:59 03/03/17 05:26 Dopamine HCl/ Dextrose (DOPamine 400mg/ 250ml) 250 ml @ 0 mls/hr Q24H PRN IV Bradycardia 02/28/17 15:30 03/30/17 15:29 03/03/17 00:44 Furosemide (Lasix) 40 mg DAILY IV 02/28/17 09:00 03/30/17 08:59 03/03/17 08:13 Heparin Sodium/ Sodium Chloride 2000 unit 2,000 unit ONCE INJ 03/02/17 15:00 04/01/17 14:59 Insulin Aspart (NovoLOG) BEFORE MEALS AND HS SUBQ 02/27/17 21:00 03/29/17 20:59 03/03/17 05:55 Lorazepam (Ativan 2mg/ml 1ml) 0.5 mg Q4H PRN IV For Anxiety 02/27/17 19:30 03/06/17 19:29 03/03/17 11:12 Morphine Sulfate (Morphine Sulfate) 1 mg Q4H PRN IVP For Pain 02/27/17 20:00 03/06/17 19:59 Ondansetron HCl (Zofran) 4 mg Q6H PRN IVP Nausea & Vomiting 02/27/17 19:30 03/29/17 19:29 02/28/17 17:32 Pantoprazole (Protonix) 40 mg EVERY 12 HOURS ORAL 03/01/17 13:00 03/31/17 12:59 03/03/17 08:13 Polyethylene Glycol (Miralax) 17 gm HSPRN PRN ORAL Constipation 02/27/17 19:30 03/29/17 19:29 Zolpidem Tartrate (Ambien) 5 mg HSPRN PRN ORAL Insomnia 02/27/17 19:30 03/29/17 19:29 Allergies: Coded Allergies: No Known Allergies (Unverified , 09/17/16) ROS Limited/Unobtainable: No Constitutional: Reports: no symptoms HEENT: Reports: no symptoms Cardiovascular: Reports: no symptoms Respiratory: Reports: shortness of breath Gastrointestinal/Abdominal: Reports: no symptoms Genitourinary: Reports: no symptoms Neurologic/Psychiatric: Reports: no symptoms Subjective 71 YO F admitted with shortness of breath and Bradycardia. ICU. Cover for Int Med-Dr Real. Continues on dopamine Objective Last Vital Signs Date Time Temp Pulse Resp B/P Pulse Ox O2 Delivery O2 Flow Rate FiO2 03/03/17 15:30 58 18 150/44 96 Nasal Cannula 2.0 03/03/17 12:00 98.9 03/03/17 07:10 28 Laboratory Tests Test 03/03/17 04:20 03/03/17 09:02 03/03/17 11:35 White Blood Count 7.7 K/UL (4.8-10.8) Red Blood Count 3.08 M/UL (4.20-5.40) L Hemoglobin 8.8 G/DL (12.0-16.0) L Hematocrit 28.1 % (37.0-47.0) L Mean Corpuscular Volume 91 FL (80-99) Mean Corpuscular Hemoglobin 28.7 PG (27.0-31.0) Mean Corpuscular Hemoglobin Concent 31.5 G/DL (32.0-36.0) L Red Cell Distribution Width 15.0 % (11.6-14.8) H Platelet Count 134 K/UL (150-450) L Mean Platelet Volume 8.0 FL (6.5-10.1) Neutrophils (%) (Auto) 75.4 % (45.0-75.0) H Lymphocytes (%) (Auto) 13.7 % (20.0-45.0) L Monocytes (%) (Auto) 7.3 % (1.0-10.0) Eosinophils (%) (Auto) 2.9 % (0.0-3.0) Basophils (%) (Auto) 0.6 % (0.0-2.0) Prothrombin Time 16.6 SEC (9.30-11.50) H Prothromb Time International Ratio 1.6 (0.9-1.1) H Sodium Level 142 mEQ/L (135-145) Potassium Level 4.7 mEQ/L (3.4-4.9) Chloride Level 103 mEQ/L (98-107) Carbon Dioxide Level 24 mEQ/L (20-30) Anion Gap 15 (5-15) Blood Urea Nitrogen 23 mg/dL (7-23) Creatinine 1.1 mg/dL (0.5-0.9) H Estimat Glomerular Filtration Rate mL/min (>60) Glucose Level 166 mg/dL (74-106) H Calcium Level 9.0 mg/dL (8.6-10.2) Phosphorus Level 3.1 mg/dL (2.5-4.8) Magnesium Level 2.1 mg/dL (1.7-2.5) Total Bilirubin 0.9 mg/dL (0.0-1.2) Aspartate Amino Transf (AST/SGOT) 16 U/L (5-40) Alanine Aminotransferase (ALT/SGPT) 8 U/L (3-33) Alkaline Phosphatase 140 U/L (35-104) H Pro-B-Type Natriuretic Peptide 796 pg/mL (0-125) H Total Protein 7.4 g/dL (6.6-8.7) Albumin 3.4 g/dL (3.5-5.2) L Globulin 4.0 g/dL Albumin/Globulin Ratio 0.8 (1.0-2.7) L Arterial Blood pH 7.450 (7.350-7.450) Arterial Blood Partial Pressure CO2 34.3 mmHg (35.0-45.0) L Arterial Blood Partial Pressure O2 116.3 mmHg (75.0-100.0) H Arterial Blood HCO3 23.3 mmol/L (22.0-26.0) Arterial Blood Oxygen Saturation 98.0 % (92.0-98.0) Arterial Blood Base Excess -0.4 Gael Test Activated Partial Thromboplast Time 45 SEC (23-33) H Intake and Output 03/02/17 03/03/17 19:00 07:00 Intake Total 2378.710 ml 432.4 ml Output Total 600 ml 1000 ml Balance 1778.710 ml -567.6 ml Intake Oral 1940 ml 120 ml IV Total 394.710 ml 312.4 ml Other 44 ml Output Urine Total 600 ml 1000 ml # Voids 3 1 Objective General Appearance: WD/WN, no apparent distress, alert EENT: PERRL/EOMI, normal ENT inspection Neck: non-tender, normal alignment, supple, normal inspection Cardiovascular: normal peripheral pulses, no gallop/murmur, no JVD, bradycardia Respiratory/Chest: chest wall non-tender, lungs clear, normal breath sounds, no respiratory distress, no accessory muscle use Abdomen: normal bowel sounds, non tender, soft, no organomegaly, no mass Extremities: normal range of motion 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 (2) Cerebral vascular disease (3) Sick sinus syndrome Assessment & Plan: await pacemaker today 03/03/17-see cardiology note. (4) Aortic valve replaced Assessment & Plan: hold coumadin for pacemaker implant today 03/03/17 (5) Bradycardia Assessment & Plan: D/C digoxin per cardiology (6) Atrial fibrillation Assessment & Plan: Hold coumadin per cardiology for pacemaker implant (7) Diabetes mellitus Assessment & Plan: Continue novolog sliding scale. (8) Hypercholesteremia Status: not improved NIKKI TAYLOR Mar 03, 2017 15:59
--- NOTE | 2017-03-03 16:28 | Diagnostic Imaging Report ---
Indications: Long-term central IV access required for multiple medications. Technique: The procedure indications, risks, and alternatives were explained to the patient's family who understands and gives consent to proceed. Procedure was performed at bedside. Strict aseptic technique was utilized, including hand washing, use of hat and mask, use of sterile gown and gloves, sterile ultrasound gel and probe cover, prepping of right arm skin with 2% chlorhexidine solution, and application of full body sterile barrier over this area. Skin and subcutaneous soft tissues were infiltrated with 1% lidocaine and sodium bicarbonate. A small dermatotomy was made, through which the larger of two patent, adequate size right brachial veins was punctured percutaneously under direct sonographic guidance with a 21-gauge needle. Exchange was made over a 0.018 inch guidewire for a 5 [place] peel-away sheath. A Bard Power-PICC 5 [place] dual lumen central venous catheter was cut to 35 cm, then advanced through the sheath over the guidewire. Guidewire and sheath were removed. Both catheter ports were aspirated, then flushed with heparinized saline. Catheter was secured the skin with adhesive dressing. Patient tolerated procedure well without immediate complications. Followup chest radiograph performed. Findings: Both ports aspirate and flush freely. Tip of PICC in region of right atrium. IMPRESSION: Bedside placement of peripherally inserted central venous catheter via right brachial vein, working well,, and right atrium. Catheter will be withdrawn 4 cm, then may be used.
[2017-03-03] MEDS ORDERED: Propofol 10mg/ml 20ml IV ONE ×2 (17:14→18:30)
[2017-03-03] MEDS ORDERED: Midazolam 2mg/2ml Inj ONE (18:30)
[2017-03-03] MEDS ORDERED: NS 275ml ONE (18:30)
[2017-03-03] MEDS ORDERED: fentaNYL 100 mcg/2 mL IV ONE (18:30)
--- NOTE | 2017-03-03 18:33 | Pre-Procedure Note/Attestation ---
Pre-Procedure Note/Attestation Complete Prior to Procedure Planned Procedure: left Procedure Narrative: Permanent pacer implantation. Attestation I attest that I discussed the nature of the procedure; its benefits; risks and complications; and alternatives (and the risks and benefits of such alternatives ), prior to the procedure, with the patient (or the patient's legal guest service representative). I attest that, if there was a reasonable possibility of needing a blood transfusion, the patient (or the patient's legal guest service representative) was given the [facility] standardized written summary, pursuant to the Abhilash Jose Blood Safety Act ([place] Health and Safety Code # 1645, as amended). I attest that I re-evaluated the patient just prior to the surgery and that there has been no change in the patient's H&P, except as documented below: AUTUMN BERRY Mar 03, 2017 18:33
[2017-03-03] MEDS ORDERED: NS 275ml IRRIG ONE (19:40)
[2017-03-03] MEDS ORDERED: NS Irrig 1000ml IRRIG ONE (19:40)
[2017-03-03] MEDS: Lidocaine 1% Plain 30 ml INJ ONE (19:40)
--- NOTE | 2017-03-03 19:57 | Brief Operative Note ---
Immediate Post Operative Note Operative Note Pre-op Diagnosis: SSS. Profound bradycardia needing dopamine drip Post-op Diagnosis: same as pre-op Specimen: none Complications: none Estimated Blood Loss: minimal Implant(s) used?: Yes AUTUMN BERRY Mar 03, 2017 19:57
[2017-03-03] MEDS ORDERED: Morphine Sulfate 2mg/ml Inj IVP PRN (20:00)
[2017-03-03] MEDS ORDERED: Tylenol #3 tab (300mg/30mg) ORAL PRN (20:00)
[2017-03-03] MEDS: Dyna-Hex 2% Top Sol 8oz TOPIC SCH (21:28)
[2017-03-03] MEDS: ceFAZolin sod 1 GM in D5W 55 ML IVP SCH (21:31)
[2017-03-04] VITALS (24 sets, daily range): BP systolic 107–140; BP diastolic 49–74
[2017-03-04] MEDS: D5 1/2NS 1,000 ML IV SCH (02:54)
--- NOTE | 2017-03-04 05:00 | Procedure Note ---
DATE OF PROCEDURE: 03/03/2017 NOTE: "POOR AUDIO QUALITY" PACEMAKER IMPLANTATION INDICATION FOR PROCEDURE: Profound bradycardia, heart rate in the 20s and junctional rhythm. The patient was kept in the ICU on dopamine for four days. The patient continued to be junctional and needed high dose of dopamine. PROCEDURE PERFORMED: 1. Dual-chamber permanent pacemaker implantation. 2. Fluoroscopic supervision and interpretation. OPERATIVE REPORT: The patient was brought into the operating room after informed consent was obtained. The patient was prepped and draped in the usual fashion. Anesthesia was provided by the anesthesiologist. After prep and drape in a sterile condition, a total of 20 mL of lidocaine was given to left prepectoralis area. An incision was made along the left deltopectoral groove. A sharp and blunt dissection was made pectoralis fascia. The cutdown was performed. The right atrial and right ventricle were placed through this access and was placed in right atrial appendage and right ventricular apex with excellent sensing and pacing parameters. It is of note that during placement of the pacemaker, the patient went into sustained ventricular tachycardia at a rate of about 120 beats per minute. Dopamine was discontinued. The patient remained without any underlying P-waves. The atrial lead and the ventricular leads were then fixed to underlying pectoralis fascia. was placed in right atrial appendage and right ventricular apex cutdown. The pocket was made close to the venous access irrigated with antibiotic solution. Both leads were then connected to the pacemaker and left in the pocket. The pocket was then closed with 2-0 Vicryl and Dermabond. The patient suffered no major complications from the procedure and was transferred to recovery room in stable condition. FINDINGS: The pacemaker is from [employer] Eluna 8 DR-T, serial number [id number]. The right atrial lead is from [employer] S45, serial number [id number]. The P-wave is 3.7 millivolts and the threshold was 0.7 volts at 0.4 milliseconds and impedance of 400 ohms. R-wave was at 14 millivolts initially and subsequently was only paced. The threshold was 0.8 volts at 0.4 milliseconds and impedance of 600 ohms. IMPRESSION: Successful dual-chamber permanent pacemaker implantation. In view of the patient's ventricular tachycardia during the procedure, the dopamine was discontinued. We will watch the patient in intensive care unit. Hopefully, there is ventricular tachycardia dopamine that the patient was on. However, if the patient develops clinically sustained ventricular tachycardia off of dopamine and in view of the patient's history of coronary artery bypass graft, the patient may need upgrade of her pacemaker to a defibrillator. In the meantime, we will watch her on telemetry. Osmany Carmona M.D. DR: Brooke JOB#: [id number] CC:
[2017-03-04] MEDS: ceFAZolin sod 1 GM in D5W 55 ML IVP SCH ×3 (05:30→22:24)
[2017-03-04 05:47] LABS: MEAN CORPUSCULAR HGB CONC 32.1 G/DL (32.0-36.0); MEAN CORPUSCULAR VOLUME 90 FL (80-99); MEAN PLATELET VOLUME 7.3 FL (6.5-10.1); PLATELET COUNT 122 K/UL (150-450); RED BLOOD COUNT 2.71 M/UL (4.20-5.40); RED CELL DISTRIBUTION WIDTH 14.5 % (11.6-14.8)
[2017-03-04 05:51] LABS: INR 1.2 (0.9-1.1); PROTHROMBIN TIME 12.3 SEC (9.30-11.50)
[2017-03-04] MEDS: NovoLOG Insulin Flexpen SUBQ SCH ×4 (06:12→21:10)
[2017-03-04 06:13] LABS: ALANINE AMINOTRANSFERASE 6 U/L (3-33); ALBUMIN/GLOBULIN RATIO 0.9 (1.0-2.7); ANION GAP 15 (5-15); ASPARTATE AMINO TRANSFERASE 16 U/L (5-40); CALCIUM 8.7 mg/dL (8.6-10.2); CARBON DIOXIDE 25 mEQ/L (20-30); CHLORIDE 103 mEQ/L (98-107); CREATININE 0.9 mg/dL (0.5-0.9); HEMOLYSIS 8; POTASSIUM 3.4 mEQ/L (3.4-4.9); SODIUM 143 mEQ/L (135-145)
--- NOTE | 2017-03-04 09:12 | 48 Hour Post Anesthesia Eval ---
Post Anesthesia Evaluation Procedure: Pacemaker Date of Evaluation: Mar 04, 2017 Time of Evaluation: 07:08 Blood Pressure Systolic: 119 0: 51 Pulse Rate: 91 Respiratory Rate: 12 Temperature (Fahrenheit): 99 O2 Sat by Pulse Oximetry: 100 Airway: patent Nausea: No Vomiting: No Pain Intensity: 2 Hydration Status: adequate Cardiopulmonary Status: Stable Mental Status/LOC: patient returned to baseline Follow-up Care/Observations: 0 Post-Anesthesia Complications: 0 Follow-up care needed: N/A Chino Reeves MD Mar 04, 2017 09:12
[2017-03-04 09:31] LABS: BAND NEUTROPHILS % (MANUAL) 0 % (0-8); BASOPHILS % (MANUAL) 0 % (0-2); EOSINOPHILS % (MANUAL) 1 % (0-3); HYPOCHROMASIA 1+; LYMPHOCYTES % (MANUAL) 12 % (20-45); NEUTROPHILS % (MANUAL) 81 % (45-75); PLATELET ESTIMATE DECREASED; PLATELET MORPHOLOGY NORMAL; TOTAL CELLS COUNTED 100
[2017-03-04 09:32] LABS: ANISOCYTOSIS 1+
--- NOTE | 2017-03-04 10:40 | Pulmonolgy Critical Care Note ---
Critical Care - Asmt/Plan Problems: (1) Bradycardia Assessment & Plan: s/p pace maker, off dopamine (2) Diabetes mellitus (3) Atrial fibrillation (4) ATN (acute tubular necrosis) (5) Hypoalbuminemia (6) Expressive aphasia (7) Status post mitral valve replacement Respiratory: monitor respiratory rate, adjust FIO2 Cardiac: stop pressors, continue to monitor HR/BP Renal: F/U I&O, decrease IV fluid, check electrolytes Gastrointestinal: continue feedings/current rate Endocrine: monitor blood sugar Hematologic: monitor H/H, transfuse if hgb<8.5, other - stool for occult blood , one unit of prbc Neurologic: PRN Ativan, keep patient comfortable Affect: PRN ativan Prophylaxis: Protonix Notes Reviewed: cardio, renal Discussed with: nurses, consultants, 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 - Objective Last 24 Hour Vital Signs Date Time Temp Pulse Resp B/P Pulse Ox O2 Delivery O2 Flow Rate FiO2 03/04/17 10:00 92 18 123/52 100 Nasal Cannula 2.0 03/04/17 09:12 91 12 100 03/04/17 09:00 92 19 109/50 100 Nasal Cannula 2.0 03/04/17 08:00 91 03/04/17 08:00 97.5 91 15 130/58 100 Nasal Cannula 2.0 03/04/17 07:00 91 12 119/51 100 Nasal Cannula 2.0 03/04/17 06:00 91 12 113/51 100 Nasal Cannula 2.0 03/04/17 05:00 91 14 116/56 100 Nasal Cannula 2.0 03/04/17 04:00 99.0 91 12 119/52 100 Nasal Cannula 2.0 03/04/17 04:00 91 03/04/17 03:00 91 11 119/54 100 Nasal Cannula 2.0 03/04/17 02:00 91 12 113/51 100 Nasal Cannula 2.0 03/04/17 01:00 91 12 126/61 100 Nasal Cannula 2.0 03/04/17 00:00 98.1 91 11 113/56 100 Nasal Cannula 2.0 03/04/17 00:00 91 03/03/17 23:00 91 10 102/55 100 Nasal Cannula 2.0 03/03/17 22:00 91 12 107/57 100 Nasal Cannula 2.0 03/03/17 21:00 91 14 96/51 100 Nasal Cannula 2.0 03/03/17 20:00 98.3 91 13 102/50 100 Nasal Cannula 2.0 03/03/17 20:00 91 03/03/17 19:30 Nasal Cannula 2.0 28 03/03/17 19:30 100 Nasal Cannula 2.0 28 03/03/17 16:30 58 18 150/50 96 Nasal Cannula 2.0 03/03/17 16:23 158/51 03/03/17 16:00 99.2 60 18 158/44 100 Nasal Cannula 2.0 03/03/17 16:00 58 03/03/17 16:00 150/50 03/03/17 15:30 58 18 150/44 96 Nasal Cannula 2.0 03/03/17 15:00 62 17 115/40 96 Nasal Cannula 2.0 03/03/17 15:00 115/40 03/03/17 14:30 58 17 155/56 98 Nasal Cannula 2.0 03/03/17 14:00 61 18 136/49 98 Nasal Cannula 2.0 03/03/17 14:00 136/49 03/03/17 13:30 54 18 152/48 98 Nasal Cannula 2.0 03/03/17 13:00 150/48 03/03/17 13:00 56 16 150/48 100 Nasal Cannula 2.0 03/03/17 12:30 56 16 146/37 100 Nasal Cannula 2.0 03/03/17 12:00 56 03/03/17 12:00 98.9 64 20 140/54 100 Nasal Cannula 2.0 03/03/17 11:30 56 18 155/54 100 Nasal Cannula 2.0 03/03/17 11:00 139/53 03/03/17 11:00 54 18 139/53 100 Nasal Cannula 2.0 Status: awake Condition: critical HEENT: atraumatic Lungs: clear Heart: HR/BP unstable, regular Abdomen: non-tender, active bowel sounds Extremities: edema Decubiti: location Accucheck: 150 Critical Care - Subjective ROS Limited/Unobtainable: Yes ICU Day: 5 Condition: critical EKG Rhythm: Sinus Rhythm FI02: 28 Fluids: d5 1/2 NS 50 cc.hour I&O: Intake and Output 03/03/17 03/04/17 19:00 07:00 Intake Total 677.0 ml 660 ml Output Total 1720 ml 300 ml Balance -1043.0 ml 360 ml Intake Oral 0 ml 50 ml IV Total 677.0 ml 610 ml Output Urine Total 1720 ml 300 ml # Voids 1 CXR: no change Labs: Laboratory Tests Test 03/03/17 11:35 03/04/17 04:00 Activated Partial Thromboplast Time 45 SEC (23-33) H White Blood Count 5.0 K/UL (4.8-10.8) Red Blood Count 2.71 M/UL (4.20-5.40) L Hemoglobin 7.9 G/DL (12.0-16.0) L Hematocrit 24.5 % (37.0-47.0) L Mean Corpuscular Volume 90 FL (80-99) Mean Corpuscular Hemoglobin 29.0 PG (27.0-31.0) Mean Corpuscular Hemoglobin Concent 32.1 G/DL (32.0-36.0) Red Cell Distribution Width 14.5 % (11.6-14.8) Platelet Count 122 K/UL (150-450) L Mean Platelet Volume 7.3 FL (6.5-10.1) Neutrophils (%) (Auto) % (45.0-75.0) Lymphocytes (%) (Auto) % (20.0-45.0) Monocytes (%) (Auto) % (1.0-10.0) Eosinophils (%) (Auto) % (0.0-3.0) Basophils (%) (Auto) % (0.0-2.0) Differential Total Cells Counted 100 Neutrophils % (Manual) 81 % (45-75) H Lymphocytes % (Manual) 12 % (20-45) L Monocytes % (Manual) 6 % (1-10) Eosinophils % (Manual) 1 % (0-3) Basophils % (Manual) 0 % (0-2) Band Neutrophils 0 % (0-8) Platelet Estimate Decreased L Platelet Morphology Normal Hypochromasia 1+ Anisocytosis 1+ Prothrombin Time 12.3 SEC (9.30-11.50) H Prothromb Time International Ratio 1.2 (0.9-1.1) H Sodium Level 143 mEQ/L (135-145) Potassium Level 3.4 mEQ/L (3.4-4.9) Chloride Level 103 mEQ/L (98-107) Carbon Dioxide Level 25 mEQ/L (20-30) Anion Gap 15 (5-15) Blood Urea Nitrogen 20 mg/dL (7-23) Creatinine 0.9 mg/dL (0.5-0.9) Estimat Glomerular Filtration Rate mL/min (>60) Glucose Level 145 mg/dL (74-106) H Calcium Level 8.7 mg/dL (8.6-10.2) Total Bilirubin 0.7 mg/dL (0.0-1.2) Aspartate Amino Transf (AST/SGOT) 16 U/L (5-40) Alanine Aminotransferase (ALT/SGPT) 6 U/L (3-33) Alkaline Phosphatase 112 U/L (35-104) H Pro-B-Type Natriuretic Peptide 861 pg/mL (0-125) H Total Protein 7.0 g/dL (6.6-8.7) Albumin 3.4 g/dL (3.5-5.2) L Globulin 3.6 g/dL Albumin/Globulin Ratio 0.9 (1.0-2.7) L MAC FARIAS Mar 04, 2017 10:40
--- NOTE | 2017-03-04 11:26 | Diagnostic Imaging Report ---
Indication: DYSPNEA Technique: One view of the chest Comparison: 03/03/2017 Findings: Left chest pacemaker is again demonstrated. The heart is enlarged. Better inspiration on the current exam. Previously demonstrated borderline interstitial prominence may be decreased as a result. Old healed right rib fracture deformities are again demonstrated. Right arm PICC is now present. Impression: Better inspiration on the current study with resultant decreased residual prominence. 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
--- NOTE | 2017-03-04 12:33 | Internal Med Progress Note ---
Subjective Date of Service: Mar 04, 2017 Physician Name JadeNikki Attending Physician Kobi Real MD Current Medications Medications (Trade) Dose Ordered Sig/Grisel Route PRN Reason Start Time Stop Time Status Last Admin Dose Admin Acetaminophen (Tylenol) 650 mg Q4H PRN ORAL fever 02/27/17 19:30 03/29/17 19:29 Acetaminophen 650 mg 650 mg Q6H PRN ORAL Headache/Mild Pain 03/03/17 20:00 04/02/17 19:59 Acetaminophen/ Codeine Phosphate (Tylenol #3) 1 tab Q4H PRN ORAL Moderate Pain (Pain Scale 4-6) 03/03/17 20:00 03/10/17 19:59 Al Hydroxide/Mg Hydroxide (Mylanta II) 30 ml Q6H PRN ORAL dyspepsia 02/27/17 19:30 03/29/17 19:29 Atropine Sulfate (Atropine 1mg/ml Inj) 0.5 mg Q3H PRN IVP HR less than 30 BPM 02/28/17 17:00 03/30/17 16:59 Cefazolin Sodium/ Dextrose (Ancef/D5W) 55 ml @ 110 mls/hr Q8HR IVP 03/03/17 22:00 03/10/17 21:59 03/04/17 05:30 Chlorhexidine Gluconate (Pascale-Hex 2%) 1 applic BEDTIME TOPIC 02/28/17 21:00 03/30/17 20:59 03/03/17 21:28 Dextrose (Dextrose 50%) STAT PRN IV Hypoglycemia 02/27/17 19:30 03/29/17 19:29 Furosemide (Lasix) 40 mg DAILY IV 02/28/17 09:00 03/30/17 08:59 03/04/17 09:27 Heparin Sodium/ Sodium Chloride (Heparin 2000 units/Ns 1000ml premix) 2,000 unit ONCE INJ 03/02/17 15:00 04/01/17 14:59 Insulin Aspart (NovoLOG) BEFORE MEALS AND HS SUBQ 02/27/17 21:00 03/29/17 20:59 03/04/17 12:17 Lorazepam (Ativan 2mg/ml 1ml) 0.5 mg Q4H PRN IV For Anxiety 02/27/17 19:30 03/06/17 19:29 03/03/17 11:12 Morphine Sulfate (Morphine Sulfate) 1 mg Q4H PRN IVP For Pain 02/27/17 20:00 03/06/17 19:59 Morphine Sulfate (Morphine Sulfate) 2 mg Q6H PRN IVP Severe Pain (Pain Scale 7-10) 03/03/17 20:00 03/10/17 19:59 Ondansetron HCl (Zofran) 4 mg Q6H PRN IVP Nausea & Vomiting 02/27/17 19:30 03/29/17 19:29 02/28/17 17:32 Pantoprazole (Protonix) 40 mg EVERY 12 HOURS ORAL 03/01/17 13:00 03/31/17 12:59 03/04/17 09:27 Polyethylene Glycol (Miralax) 17 gm HSPRN PRN ORAL Constipation 02/27/17 19:30 03/29/17 19:29 Zolpidem Tartrate (Ambien) 5 mg HSPRN PRN ORAL Insomnia 02/27/17 19:30 03/29/17 19:29 Allergies: Coded Allergies: No Known Allergies (Unverified , 09/17/16) ROS Limited/Unobtainable: No Constitutional: Reports: no symptoms HEENT: Reports: no symptoms Cardiovascular: Reports: no symptoms Respiratory: Reports: no symptoms Gastrointestinal/Abdominal: Reports: no symptoms Genitourinary: Reports: no symptoms Neurologic/Psychiatric: Reports: no symptoms Subjective 71 YO F admitted with shortness of breath and Bradycardia. ICU. Cover for Int Sunny-Dr Real. Dopamine D/C. S/P pacemaker implant 03/03/17. Objective Last Vital Signs Date Time Temp Pulse Resp B/P Pulse Ox O2 Delivery O2 Flow Rate FiO2 03/04/17 12:00 93 03/04/17 12:00 98.0 26 128/58 99 Nasal Cannula 2.0 03/03/17 19:30 28 Laboratory Tests Test 03/04/17 04:00 White Blood Count 5.0 K/UL (4.8-10.8) Red Blood Count 2.71 M/UL (4.20-5.40) L Hemoglobin 7.9 G/DL (12.0-16.0) L Hematocrit 24.5 % (37.0-47.0) L Mean Corpuscular Volume 90 FL (80-99) Mean Corpuscular Hemoglobin 29.0 PG (27.0-31.0) Mean Corpuscular Hemoglobin Concent 32.1 G/DL (32.0-36.0) Red Cell Distribution Width 14.5 % (11.6-14.8) Platelet Count 122 K/UL (150-450) L Mean Platelet Volume 7.3 FL (6.5-10.1) Neutrophils (%) (Auto) % (45.0-75.0) Lymphocytes (%) (Auto) % (20.0-45.0) Monocytes (%) (Auto) % (1.0-10.0) Eosinophils (%) (Auto) % (0.0-3.0) Basophils (%) (Auto) % (0.0-2.0) Differential Total Cells Counted 100 Neutrophils % (Manual) 81 % (45-75) H Lymphocytes % (Manual) 12 % (20-45) L Monocytes % (Manual) 6 % (1-10) Eosinophils % (Manual) 1 % (0-3) Basophils % (Manual) 0 % (0-2) Band Neutrophils 0 % (0-8) Platelet Estimate Decreased L Platelet Morphology Normal Hypochromasia 1+ Anisocytosis 1+ Prothrombin Time 12.3 SEC (9.30-11.50) H Prothromb Time International Ratio 1.2 (0.9-1.1) H Sodium Level 143 mEQ/L (135-145) Potassium Level 3.4 mEQ/L (3.4-4.9) Chloride Level 103 mEQ/L (98-107) Carbon Dioxide Level 25 mEQ/L (20-30) Anion Gap 15 (5-15) Blood Urea Nitrogen 20 mg/dL (7-23) Creatinine 0.9 mg/dL (0.5-0.9) Estimat Glomerular Filtration Rate mL/min (>60) Glucose Level 145 mg/dL (74-106) H Calcium Level 8.7 mg/dL (8.6-10.2) Total Bilirubin 0.7 mg/dL (0.0-1.2) Aspartate Amino Transf (AST/SGOT) 16 U/L (5-40) Alanine Aminotransferase (ALT/SGPT) 6 U/L (3-33) Alkaline Phosphatase 112 U/L (35-104) H Pro-B-Type Natriuretic Peptide 861 pg/mL (0-125) H Total Protein 7.0 g/dL (6.6-8.7) Albumin 3.4 g/dL (3.5-5.2) L Globulin 3.6 g/dL Albumin/Globulin Ratio 0.9 (1.0-2.7) L Intake and Output 03/03/17 03/04/17 19:00 07:00 Intake Total 677.0 ml 660 ml Output Total 1720 ml 300 ml Balance -1043.0 ml 360 ml Intake Oral 0 ml 50 ml IV Total 677.0 ml 610 ml Output Urine Total 1720 ml 300 ml # Voids 1 Objective General Appearance: WD/WN, no apparent distress, alert EENT: PERRL/EOMI, normal ENT inspection Neck: non-tender, normal alignment, supple, normal inspection Cardiovascular: normal peripheral pulses, no gallop/murmur, no JVD, bradycardia Respiratory/Chest: chest wall non-tender, lungs clear, normal breath sounds, no respiratory distress, no accessory muscle use Abdomen: normal bowel sounds, non tender, soft, no organomegaly, no mass Extremities: normal range of motion 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 (2) Cerebral vascular disease (3) Sick sinus syndrome Assessment & Plan: S/P pacemaker implantaion 03/03/17-see cardiology note. (4) Aortic valve replaced Assessment & Plan: hold coumadin for pacemaker implant today 03/03/17 (5) Bradycardia Assessment & Plan: D/C digoxin per cardiology (6) Atrial fibrillation Assessment & Plan: Restart coumadin per cardiology (7) Diabetes mellitus Assessment & Plan: Continue novolog sliding scale. (8) Hypercholesteremia Status: progressing NIKKI TAYLOR Mar 04, 2017 12:32
[2017-03-04] MEDS: Heparin 2000 units/Ns 1000ml INJ SCH (13:29)
[2017-03-04 18:08] LABS: BASOPHILS % (AUTO) 0.9 % (0.0-2.0); EOSINOPHILS % (AUTO) 3.4 % (0.0-3.0); LYMPHOCYTES % (AUTO) 17.4 % (20.0-45.0); MEAN CORPUSCULAR HEMOGLOBIN 29.8 PG (27.0-31.0); MEAN CORPUSCULAR HGB CONC 32.9 G/DL (32.0-36.0); MEAN CORPUSCULAR VOLUME 91 FL (80-99); MONOCYTES % (AUTO) 6.5 % (1.0-10.0); NEUTROPHILS % (AUTO) 71.8 % (45.0-75.0); PLATELET COUNT 144 K/UL (150-450); RED BLOOD COUNT 3.01 M/UL (4.20-5.40); RED CELL DISTRIBUTION WIDTH 14.4 % (11.6-14.8); WHITE BLOOD COUNT 5.7 K/UL (4.8-10.8)
[2017-03-04] MEDS ORDERED: Warfarin Sodium 2.5mg ORAL ONE (18:30)
--- NOTE | 2017-03-04 20:21 | Cardiac Electrophysiology PN ---
Assessment/Plan Assessment/Plan 1. Profound bradycardia. S/P Dual chamber Biotronic pacer placement. Interrogated and showed normal function. 2. Status post prosthetic aortic valve replacement. Resume Coumadin. 3. Paroxysmal atrial fibrillation with rapid ventricular response. Last echocardiogram in September of 2016 showed ejection fraction of 55% to 60%.Start Lopressor 25 bid. 4. Anemia. 5. Azotemia. BUN of 46 and creatinine 1.2. 6. Congestive heart failure, due to diastolic dysfunction. BNP of 739. DC iv lasix. DW RN Subjective Subjective Remained AV paced post pacer implant. Pacer interrogation showed Nl Fx with no VT. Objective Last 24 Hour Vital Signs Date Time Temp Pulse Resp B/P Pulse Ox O2 Delivery O2 Flow Rate FiO2 03/04/17 19:08 Nasal Cannula 2.0 03/04/17 19:07 100 Nasal Cannula 2.0 03/04/17 19:00 94 24 134/56 100 Nasal Cannula 2.0 03/04/17 18:00 96 24 137/58 100 Nasal Cannula 2.0 03/04/17 17:00 93 22 140/67 100 Nasal Cannula 2.0 03/04/17 16:00 92 03/04/17 16:00 98.1 93 23 133/59 100 Nasal Cannula 2.0 03/04/17 15:00 93 23 110/74 100 Nasal Cannula 2.0 03/04/17 14:00 93 20 134/52 100 Nasal Cannula 2.0 03/04/17 13:00 93 20 117/54 100 Nasal Cannula 2.0 03/04/17 12:00 93 03/04/17 12:00 98.0 93 26 128/58 99 Nasal Cannula 2.0 03/04/17 11:00 93 16 107/49 100 Nasal Cannula 2.0 03/04/17 10:00 92 18 123/52 100 Nasal Cannula 2.0 03/04/17 09:12 91 12 100 03/04/17 09:00 92 19 109/50 100 Nasal Cannula 2.0 03/04/17 08:00 91 03/04/17 08:00 97.5 91 15 130/58 100 Nasal Cannula 2.0 03/04/17 07:00 91 12 119/51 100 Nasal Cannula 2.0 03/04/17 06:00 91 12 113/51 100 Nasal Cannula 2.0 03/04/17 05:00 91 14 116/56 100 Nasal Cannula 2.0 03/04/17 04:00 99.0 91 12 119/52 100 Nasal Cannula 2.0 03/04/17 04:00 91 03/04/17 03:00 91 11 119/54 100 Nasal Cannula 2.0 03/04/17 02:00 91 12 113/51 100 Nasal Cannula 2.0 03/04/17 01:00 91 12 126/61 100 Nasal Cannula 2.0 03/04/17 00:00 98.1 91 11 113/56 100 Nasal Cannula 2.0 03/04/17 00:00 91 03/03/17 23:00 91 10 102/55 100 Nasal Cannula 2.0 03/03/17 22:00 91 12 107/57 100 Nasal Cannula 2.0 03/03/17 21:00 91 14 96/51 100 Nasal Cannula 2.0 Intake and Output 03/03/17 03/04/17 19:00 07:00 Intake Total 677.0 ml 660 ml Output Total 1720 ml 300 ml Balance -1043.0 ml 360 ml Intake Oral 0 ml 50 ml IV Total 677.0 ml 610 ml Output Urine Total 1720 ml 300 ml # Voids 1 Laboratory Tests Test 03/04/17 04:00 03/04/17 17:45 White Blood Count 5.0 K/UL (4.8-10.8) 5.7 K/UL (4.8-10.8) Red Blood Count 2.71 M/UL (4.20-5.40) L 3.01 M/UL (4.20-5.40) L Hemoglobin 7.9 G/DL (12.0-16.0) L 9.0 G/DL (12.0-16.0) L Hematocrit 24.5 % (37.0-47.0) L 27.3 % (37.0-47.0) L Mean Corpuscular Volume 90 FL (80-99) 91 FL (80-99) Mean Corpuscular Hemoglobin 29.0 PG (27.0-31.0) 29.8 PG (27.0-31.0) Mean Corpuscular Hemoglobin Concent 32.1 G/DL (32.0-36.0) 32.9 G/DL (32.0-36.0) Red Cell Distribution Width 14.5 % (11.6-14.8) 14.4 % (11.6-14.8) Platelet Count 122 K/UL (150-450) L 144 K/UL (150-450) L Mean Platelet Volume 7.3 FL (6.5-10.1) 6.0 FL (6.5-10.1) L Neutrophils (%) (Auto) % (45.0-75.0) 71.8 % (45.0-75.0) Lymphocytes (%) (Auto) % (20.0-45.0) 17.4 % (20.0-45.0) L Monocytes (%) (Auto) % (1.0-10.0) 6.5 % (1.0-10.0) Eosinophils (%) (Auto) % (0.0-3.0) 3.4 % (0.0-3.0) H Basophils (%) (Auto) % (0.0-2.0) 0.9 % (0.0-2.0) Differential Total Cells Counted 100 Neutrophils % (Manual) 81 % (45-75) H Lymphocytes % (Manual) 12 % (20-45) L Monocytes % (Manual) 6 % (1-10) Eosinophils % (Manual) 1 % (0-3) Basophils % (Manual) 0 % (0-2) Band Neutrophils 0 % (0-8) Platelet Estimate Decreased L Platelet Morphology Normal Hypochromasia 1+ Anisocytosis 1+ Prothrombin Time 12.3 SEC (9.30-11.50) H Prothromb Time International Ratio 1.2 (0.9-1.1) H Sodium Level 143 mEQ/L (135-145) Potassium Level 3.4 mEQ/L (3.4-4.9) Chloride Level 103 mEQ/L (98-107) Carbon Dioxide Level 25 mEQ/L (20-30) Anion Gap 15 (5-15) Blood Urea Nitrogen 20 mg/dL (7-23) Creatinine 0.9 mg/dL (0.5-0.9) Estimat Glomerular Filtration Rate mL/min (>60) Glucose Level 145 mg/dL (74-106) H Calcium Level 8.7 mg/dL (8.6-10.2) Total Bilirubin 0.7 mg/dL (0.0-1.2) Aspartate Amino Transf (AST/SGOT) 16 U/L (5-40) Alanine Aminotransferase (ALT/SGPT) 6 U/L (3-33) Alkaline Phosphatase 112 U/L (35-104) H Pro-B-Type Natriuretic Peptide 861 pg/mL (0-125) H Total Protein 7.0 g/dL (6.6-8.7) Albumin 3.4 g/dL (3.5-5.2) L Globulin 3.6 g/dL Albumin/Globulin Ratio 0.9 (1.0-2.7) L Objective HEAD AND NECK: No JVD or carotid bruits. LUNGS: Clear. CARDIOVASCULAR: Nl S1 and S2 with no gallop or murmur.Pacer in left subclavian no hematoma. ABDOMEN: Soft. EXTREMITIES: No pitting edema. Sternotomy scar is intact. AUTUMN BERRY Mar 04, 2017 20:21
[2017-03-04] MEDS ORDERED: Metoprolol 25mg tab ORAL SCH (21:00)
[2017-03-04] MEDS: Dyna-Hex 2% Top Sol 8oz TOPIC SCH (21:08)
[2017-03-04] MEDS ORDERED: Mylanta II UD 30ml ORAL PRN (23:52)
[2017-03-04] MEDS ORDERED: LORazepam Inj 2mg/ml 1ml IV PRN (23:53)
[2017-03-04] MEDS ORDERED: Morphine Sulfate 2mg/ml Inj IVP PRN (23:54)
[2017-03-04] MEDS ORDERED: Zolpidem 5mg tab ORAL PRN (23:55)
[2017-03-04] MEDS ORDERED: Miralax 17gm pkt ORAL PRN (23:55)
[2017-03-05] VITALS: BP 139/72
[2017-03-05] MEDS ORDERED: Morphine Sulfate 2mg/ml Inj IVP PRN
[2017-03-05] MEDS ORDERED: Tylenol #3 tab (300mg/30mg) ORAL PRN
[2017-03-05 04:01] VITALS: BP 130/74
[2017-03-05] MEDS: ceFAZolin sod 1 GM in D5W 55 ML IVP SCH ×2 (05:12→14:45)
[2017-03-05] MEDS: NovoLOG Insulin Flexpen SUBQ SCH ×2 (06:15→11:30)
[2017-03-05 08:00] VITALS: BP 139/72
[2017-03-05 08:15] LABS: EOSINOPHILS % (AUTO) 3.3 % (0.0-3.0); LYMPHOCYTES % (AUTO) 21.2 % (20.0-45.0); MEAN CORPUSCULAR HGB CONC 31.6 G/DL (32.0-36.0); MEAN CORPUSCULAR VOLUME 92 FL (80-99); MEAN PLATELET VOLUME 7.9 FL (6.5-10.1); MONOCYTES % (AUTO) 7.2 % (1.0-10.0); NEUTROPHILS % (AUTO) 67.3 % (45.0-75.0); PLATELET COUNT 150 K/UL (150-450); RED BLOOD COUNT 3.08 M/UL (4.20-5.40); RED CELL DISTRIBUTION WIDTH 14.5 % (11.6-14.8); WHITE BLOOD COUNT 5.1 K/UL (4.8-10.8)
[2017-03-05 08:31] LABS: INR 1.1 (0.9-1.1)
[2017-03-05 08:43] LABS: ALANINE AMINOTRANSFERASE 5 U/L (3-33); ALBUMIN/GLOBULIN RATIO 0.8 (1.0-2.7); ANION GAP 13 (5-15); ASPARTATE AMINO TRANSFERASE 15 U/L (5-40); CALCIUM 8.8 mg/dL (8.6-10.2); CARBON DIOXIDE 27 mEQ/L (20-30); CHLORIDE 102 mEQ/L (98-107); CREATININE 1.1 mg/dL (0.5-0.9); HEMOLYSIS 0; MAGNESIUM 2.5 mg/dL (1.7-2.5); PHOSPHORUS 2.8 mg/dL (2.5-4.8); POTASSIUM 3.7 mEQ/L (3.4-4.9); SODIUM 142 mEQ/L (135-145); TOTAL PROTEIN 7.1 g/dL (6.6-8.7)
[2017-03-05] MEDS ORDERED: Metoprolol 25mg tab ORAL SCH (09:00)
[2017-03-05 11:53] VITALS: BP 126/65
--- NOTE | 2017-03-05 13:21 | Cardiac Electrophysiology PN ---
Assessment/Plan Assessment/Plan 1. Profound bradycardia. S/P Dual chamber Biotronic pacer placement with normal function. 2. Status post prosthetic aortic valve replacement. On Coumadin. INR still 1.1 3. Paroxysmal atrial fibrillation with rapid ventricular response. Last echocardiogram in September of 2016 showed ejection fraction of 55% to 60%.Start Lopressor 25 bid. 4. Anemia. 5. Azotemia. BUN of 46 and creatinine 1.2. 6. Congestive heart failure, due to diastolic dysfunction. BNP of 739. KANDY RN Subjective Subjective Remained AV paced post pacer implant. Feeling better. Objective Last 24 Hour Vital Signs Date Time Temp Pulse Resp B/P Pulse Ox O2 Delivery O2 Flow Rate FiO2 03/05/17 11:53 97.0 99 18 126/65 98 Nasal Cannula 2.0 03/05/17 09:33 97 139/72 03/05/17 08:00 96 03/05/17 08:00 96.8 97 18 139/72 99 Nasal Cannula 2.0 03/05/17 04:01 97.3 100 18 130/74 100 Nasal Cannula 2.0 03/05/17 04:00 101 03/05/17 00:00 99 03/05/17 00:00 97.2 93 20 139/72 100 Nasal Cannula 2.0 03/04/17 22:00 94 21 129/59 100 Nasal Cannula 2.0 03/04/17 21:10 96 131/58 03/04/17 21:00 95 21 130/58 100 Nasal Cannula 2.0 03/04/17 20:00 98 03/04/17 20:00 98.0 99 22 132/60 100 Nasal Cannula 2.0 03/04/17 19:08 Nasal Cannula 2.0 28 03/04/17 19:07 100 Nasal Cannula 2.0 28 03/04/17 19:00 94 24 134/56 100 Nasal Cannula 2.0 03/04/17 18:00 96 24 137/58 100 Nasal Cannula 2.0 03/04/17 17:00 93 22 140/67 100 Nasal Cannula 2.0 03/04/17 16:00 92 03/04/17 16:00 98.1 93 23 133/59 100 Nasal Cannula 2.0 03/04/17 15:00 93 23 110/74 100 Nasal Cannula 2.0 03/04/17 14:00 93 20 134/52 100 Nasal Cannula 2.0 Intake and Output 03/04/17 03/05/17 19:00 07:00 Intake Total 1055 ml 235 ml Output Total 400 ml Balance 1055 ml -165 ml Intake Oral 600 ml 180 ml IV Total 205 ml 55 ml Blood Product 250 ml Output Urine Total 400 ml # Voids 4 3 Laboratory Tests Test 03/04/17 17:45 03/05/17 06:15 White Blood Count 5.7 K/UL (4.8-10.8) 5.1 K/UL (4.8-10.8) Red Blood Count 3.01 M/UL (4.20-5.40) L 3.08 M/UL (4.20-5.40) L Hemoglobin 9.0 G/DL (12.0-16.0) L 8.9 G/DL (12.0-16.0) L Hematocrit 27.3 % (37.0-47.0) L 28.2 % (37.0-47.0) L Mean Corpuscular Volume 91 FL (80-99) 92 FL (80-99) Mean Corpuscular Hemoglobin 29.8 PG (27.0-31.0) 29.0 PG (27.0-31.0) Mean Corpuscular Hemoglobin Concent 32.9 G/DL (32.0-36.0) 31.6 G/DL (32.0-36.0) L Red Cell Distribution Width 14.4 % (11.6-14.8) 14.5 % (11.6-14.8) Platelet Count 144 K/UL (150-450) L 150 K/UL (150-450) Mean Platelet Volume 6.0 FL (6.5-10.1) L 7.9 FL (6.5-10.1) Neutrophils (%) (Auto) 71.8 % (45.0-75.0) 67.3 % (45.0-75.0) Lymphocytes (%) (Auto) 17.4 % (20.0-45.0) L 21.2 % (20.0-45.0) Monocytes (%) (Auto) 6.5 % (1.0-10.0) 7.2 % (1.0-10.0) Eosinophils (%) (Auto) 3.4 % (0.0-3.0) H 3.3 % (0.0-3.0) H Basophils (%) (Auto) 0.9 % (0.0-2.0) 1.0 % (0.0-2.0) Prothrombin Time 11.0 SEC (9.30-11.50) Prothromb Time International Ratio 1.1 (0.9-1.1) Activated Partial Thromboplast Time 37 SEC (23-33) H Sodium Level 142 mEQ/L (135-145) Potassium Level 3.7 mEQ/L (3.4-4.9) Chloride Level 102 mEQ/L (98-107) Carbon Dioxide Level 27 mEQ/L (20-30) Anion Gap 13 (5-15) Blood Urea Nitrogen 23 mg/dL (7-23) Creatinine 1.1 mg/dL (0.5-0.9) H Estimat Glomerular Filtration Rate mL/min (>60) Glucose Level 129 mg/dL (74-106) H Calcium Level 8.8 mg/dL (8.6-10.2) Phosphorus Level 2.8 mg/dL (2.5-4.8) Magnesium Level 2.5 mg/dL (1.7-2.5) Total Bilirubin 0.7 mg/dL (0.0-1.2) Aspartate Amino Transf (AST/SGOT) 15 U/L (5-40) Alanine Aminotransferase (ALT/SGPT) 5 U/L (3-33) Alkaline Phosphatase 126 U/L (35-104) H Total Protein 7.1 g/dL (6.6-8.7) Albumin 3.3 g/dL (3.5-5.2) L Globulin 3.8 g/dL Albumin/Globulin Ratio 0.8 (1.0-2.7) L Objective HEAD AND NECK: No JVD LUNGS: Clear. CARDIOVASCULAR: Nl S1 and S2 with no gallop or murmur.Pacer in left subclavian no hematoma. ABDOMEN: Soft. EXTREMITIES: No pitting edema. Sternotomy scar is intact. AUTUMN BERRY Mar 05, 2017 13:20
--- NOTE | 2017-03-05 14:04 | Pulmonology Progress Note ---
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 Subjective ROS Limited/Unobtainable: No Constitutional: Reports: no symptoms Respiratory: Reports: no symptoms Allergies: Coded Allergies: No Known Allergies (Unverified , 09/17/16) Objective Last 24 Hour Vital Signs Date Time Temp Pulse Resp B/P Pulse Ox O2 Delivery O2 Flow Rate FiO2 03/05/17 11:53 97.0 99 18 126/65 98 Nasal Cannula 2.0 03/05/17 09:33 97 139/72 03/05/17 08:00 96 03/05/17 08:00 96.8 97 18 139/72 99 Nasal Cannula 2.0 03/05/17 04:01 97.3 100 18 130/74 100 Nasal Cannula 2.0 03/05/17 04:00 101 03/05/17 00:00 99 03/05/17 00:00 97.2 93 20 139/72 100 Nasal Cannula 2.0 03/04/17 22:00 94 21 129/59 100 Nasal Cannula 2.0 03/04/17 21:10 96 131/58 03/04/17 21:00 95 21 130/58 100 Nasal Cannula 2.0 03/04/17 20:00 98 03/04/17 20:00 98.0 99 22 132/60 100 Nasal Cannula 2.0 03/04/17 19:08 Nasal Cannula 2.0 28 03/04/17 19:07 100 Nasal Cannula 2.0 28 03/04/17 19:00 94 24 134/56 100 Nasal Cannula 2.0 03/04/17 18:00 96 24 137/58 100 Nasal Cannula 2.0 03/04/17 17:00 93 22 140/67 100 Nasal Cannula 2.0 03/04/17 16:00 92 03/04/17 16:00 98.1 93 23 133/59 100 Nasal Cannula 2.0 03/04/17 15:00 93 23 110/74 100 Nasal Cannula 2.0 Intake and Output 03/04/17 03/05/17 19:00 07:00 Intake Total 1055 ml 235 ml Output Total 400 ml Balance 1055 ml -165 ml Intake Oral 600 ml 180 ml IV Total 205 ml 55 ml Blood Product 250 ml Output Urine Total 400 ml # Voids 4 3 General Appearance: WD/WN HEENT: normocephalic, atraumatic Respiratory/Chest: chest wall non-tender, lungs clear Breasts: no masses Cardiovascular: normal peripheral pulses, normal rate, regular rhythm Abdomen: normal bowel sounds, soft, non tender Lymphatic: no neck adenopathy, no groin adenopathy Laboratory Tests 03/04/17 17:45: White Blood Count 5.7, Red Blood Count 3.01L, Hemoglobin 9.0L, Hematocrit 27.3L , Mean Corpuscular Volume 91, Mean Corpuscular Hemoglobin 29.8, Mean Corpuscular Hemoglobin Concent 32.9, Red Cell Distribution Width 14.4, Platelet Count 144L, Mean Platelet Volume 6.0L, Neutrophils (%) (Auto) 71.8, Lymphocytes (%) (Auto) 17.4L, Monocytes (%) (Auto) 6.5, Eosinophils (%) (Auto) 3.4H, Basophils (%) (Auto) 0.9 03/05/17 06:15: White Blood Count 5.1, Red Blood Count 3.08L, Hemoglobin 8.9L, Hematocrit 28.2L , Mean Corpuscular Volume 92, Mean Corpuscular Hemoglobin 29.0, Mean Corpuscular Hemoglobin Concent 31.6L, Red Cell Distribution Width 14.5, Platelet Count 150, Mean Platelet Volume 7.9, Neutrophils (%) (Auto) 67.3, Lymphocytes (%) (Auto) 21.2, Monocytes (%) (Auto) 7.2, Eosinophils (%) (Auto) 3.3H, Basophils (%) (Auto) 1.0, Prothrombin Time 11.0, Prothromb Time International Ratio 1.1, Activated Partial Thromboplast Time 37H, Sodium Level 142, Potassium Level 3.7, Chloride Level 102, Carbon Dioxide Level 27, Anion Gap 13, Blood Urea Nitrogen 23, Creatinine 1.1H, Estimat Glomerular Filtration Rate , Glucose Level 129H, Calcium Level 8.8, Phosphorus Level 2.8, Magnesium Level 2.5, Total Bilirubin 0.7, Aspartate Amino Transf (AST/SGOT) 15, Alanine Aminotransferase (ALT/SGPT) 5, Alkaline Phosphatase 126H, Total Protein 7.1, Albumin 3.3L, Globulin 3.8, Albumin/Globulin Ratio 0.8L Current Medications Medications (Trade) Dose Ordered Sig/Grisel Route PRN Reason Start Time Stop Time Status Last Admin Dose Admin Acetaminophen (Tylenol) 650 mg Q4H PRN ORAL fever 03/04/17 23:51 04/03/17 23:50 Acetaminophen (Tylenol) 650 mg Q6H PRN ORAL Headache/Mild Pain 03/05/17 23:51 04/04/17 23:50 Acetaminophen/ Codeine Phosphate (Tylenol #3) 1 tab Q4H PRN ORAL Moderate Pain (Pain Scale 4-6) 03/05/17 00:00 03/12/17 00:00 Al Hydroxide/Mg Hydroxide (Mylanta II) 30 ml Q6H PRN ORAL dyspepsia 03/04/17 23:52 04/03/17 23:51 Cefazolin Sodium/ Dextrose (Ancef/D5W) 55 ml @ 110 mls/hr Q8HR IVP 03/05/17 06:00 03/12/17 05:59 03/05/17 05:12 Chlorhexidine Gluconate (Pascale-Hex 2%) 1 applic BEDTIME TOPIC 03/05/17 21:00 04/04/17 20:59 Dextrose (Dextrose 50%) STAT PRN IV Hypoglycemia 03/04/17 23:53 04/03/17 23:52 Insulin Aspart (NovoLOG) BEFORE MEALS AND HS SUBQ 03/05/17 06:30 04/04/17 06:29 03/05/17 11:30 Lorazepam (Ativan 2mg/ml 1ml) 0.5 mg Q4H PRN IV For Anxiety 03/04/17 23:53 03/11/17 23:52 Metoprolol Tartrate (Lopressor) 25 mg Q12HR ORAL 03/05/17 09:00 04/04/17 08:59 03/05/17 09:33 Morphine Sulfate (Morphine Sulfate) 1 mg Q4H PRN IVP For Pain 03/05/17 00:00 03/12/17 00:00 Morphine Sulfate (Morphine Sulfate) 2 mg Q6H PRN IVP Severe Pain (Pain Scale 7-10) 03/04/17 23:54 03/11/17 23:53 Ondansetron HCl (Zofran) 4 mg Q6H PRN IVP Nausea & Vomiting 03/04/17 23:54 04/03/17 23:53 Pantoprazole (Protonix) 40 mg EVERY 12 HOURS ORAL 03/05/17 09:00 04/04/17 08:59 03/05/17 09:32 Polyethylene Glycol (Miralax) 17 gm HSPRN PRN ORAL Constipation 03/04/17 23:55 04/03/17 23:54 Warfarin Sodium (Coumadin per pharmacy) 1 ea DAILY PRN MISC Per rx protocol 03/05/17 09:00 04/04/17 08:59 Warfarin Sodium (Coumadin) 6 mg COUMADIN ONCE ORAL 03/05/17 17:00 03/05/17 17:01 Zolpidem Tartrate (Ambien) 5 mg HSPRN PRN ORAL Insomnia 03/04/17 23:55 04/03/17 23:54 MAC FARIAS Mar 05, 2017 14:04
[2017-03-05] MEDS ORDERED: LOVENOX60 MG/0.6 SUBQ (14:23)
--- NOTE | 2017-03-05 14:41 | Internal Med Progress Note ---
Subjective Date of Service: Mar 05, 2017 Physician Name TaylorNikki Attending Physician Kobi Real MD Current Medications Medications (Trade) Dose Ordered Sig/Grisel Route PRN Reason Start Time Stop Time Status Last Admin Dose Admin Acetaminophen (Tylenol) 650 mg Q4H PRN ORAL fever 03/04/17 23:51 04/03/17 23:50 Acetaminophen (Tylenol) 650 mg Q6H PRN ORAL Headache/Mild Pain 03/05/17 23:51 04/04/17 23:50 Acetaminophen/ Codeine Phosphate (Tylenol #3) 1 tab Q4H PRN ORAL Moderate Pain (Pain Scale 4-6) 03/05/17 00:00 03/12/17 00:00 Al Hydroxide/Mg Hydroxide (Mylanta II) 30 ml Q6H PRN ORAL dyspepsia 03/04/17 23:52 04/03/17 23:51 Cefazolin Sodium/ Dextrose (Ancef/D5W) 55 ml @ 110 mls/hr Q8HR IVP 03/05/17 06:00 03/12/17 05:59 03/05/17 05:12 Chlorhexidine Gluconate (Pascale-Hex 2%) 1 applic BEDTIME TOPIC 03/05/17 21:00 04/04/17 20:59 Dextrose (Dextrose 50%) STAT PRN IV Hypoglycemia 03/04/17 23:53 04/03/17 23:52 Insulin Aspart (NovoLOG) BEFORE MEALS AND HS SUBQ 03/05/17 06:30 04/04/17 06:29 03/05/17 11:30 Lorazepam (Ativan 2mg/ml 1ml) 0.5 mg Q4H PRN IV For Anxiety 03/04/17 23:53 03/11/17 23:52 Metoprolol Tartrate (Lopressor) 25 mg Q12HR ORAL 03/05/17 09:00 04/04/17 08:59 03/05/17 09:33 Morphine Sulfate (Morphine Sulfate) 1 mg Q4H PRN IVP For Pain 03/05/17 00:00 03/12/17 00:00 Morphine Sulfate (Morphine Sulfate) 2 mg Q6H PRN IVP Severe Pain (Pain Scale 7-10) 03/04/17 23:54 03/11/17 23:53 Ondansetron HCl (Zofran) 4 mg Q6H PRN IVP Nausea & Vomiting 03/04/17 23:54 04/03/17 23:53 Pantoprazole (Protonix) 40 mg EVERY 12 HOURS ORAL 03/05/17 09:00 04/04/17 08:59 03/05/17 09:32 Polyethylene Glycol (Miralax) 17 gm HSPRN PRN ORAL Constipation 03/04/17 23:55 04/03/17 23:54 Warfarin Sodium (Coumadin per pharmacy) 1 ea DAILY PRN MISC Per rx protocol 03/05/17 09:00 04/04/17 08:59 Warfarin Sodium (Coumadin) 6 mg COUMADIN ONCE ORAL 03/05/17 17:00 03/05/17 17:01 Zolpidem Tartrate (Ambien) 5 mg HSPRN PRN ORAL Insomnia 03/04/17 23:55 04/03/17 23:54 Allergies: Coded Allergies: No Known Allergies (Unverified , 09/17/16) Subjective 71 YO F admitted with shortness of breath and Bradycardia. Cover for Int Sunny- Dr Real. S/P pacemaker implant 03/03/17. Objective Last Vital Signs Date Time Temp Pulse Resp B/P Pulse Ox O2 Delivery O2 Flow Rate FiO2 03/05/17 11:53 97.0 99 18 126/65 98 Nasal Cannula 2.0 03/04/17 19:08 28 Laboratory Tests Test 03/04/17 17:45 03/05/17 06:15 White Blood Count 5.7 K/UL (4.8-10.8) 5.1 K/UL (4.8-10.8) Red Blood Count 3.01 M/UL (4.20-5.40) L 3.08 M/UL (4.20-5.40) L Hemoglobin 9.0 G/DL (12.0-16.0) L 8.9 G/DL (12.0-16.0) L Hematocrit 27.3 % (37.0-47.0) L 28.2 % (37.0-47.0) L Mean Corpuscular Volume 91 FL (80-99) 92 FL (80-99) Mean Corpuscular Hemoglobin 29.8 PG (27.0-31.0) 29.0 PG (27.0-31.0) Mean Corpuscular Hemoglobin Concent 32.9 G/DL (32.0-36.0) 31.6 G/DL (32.0-36.0) L Red Cell Distribution Width 14.4 % (11.6-14.8) 14.5 % (11.6-14.8) Platelet Count 144 K/UL (150-450) L 150 K/UL (150-450) Mean Platelet Volume 6.0 FL (6.5-10.1) L 7.9 FL (6.5-10.1) Neutrophils (%) (Auto) 71.8 % (45.0-75.0) 67.3 % (45.0-75.0) Lymphocytes (%) (Auto) 17.4 % (20.0-45.0) L 21.2 % (20.0-45.0) Monocytes (%) (Auto) 6.5 % (1.0-10.0) 7.2 % (1.0-10.0) Eosinophils (%) (Auto) 3.4 % (0.0-3.0) H 3.3 % (0.0-3.0) H Basophils (%) (Auto) 0.9 % (0.0-2.0) 1.0 % (0.0-2.0) Prothrombin Time 11.0 SEC (9.30-11.50) Prothromb Time International Ratio 1.1 (0.9-1.1) Activated Partial Thromboplast Time 37 SEC (23-33) H Sodium Level 142 mEQ/L (135-145) Potassium Level 3.7 mEQ/L (3.4-4.9) Chloride Level 102 mEQ/L (98-107) Carbon Dioxide Level 27 mEQ/L (20-30) Anion Gap 13 (5-15) Blood Urea Nitrogen 23 mg/dL (7-23) Creatinine 1.1 mg/dL (0.5-0.9) H Estimat Glomerular Filtration Rate mL/min (>60) Glucose Level 129 mg/dL (74-106) H Calcium Level 8.8 mg/dL (8.6-10.2) Phosphorus Level 2.8 mg/dL (2.5-4.8) Magnesium Level 2.5 mg/dL (1.7-2.5) Total Bilirubin 0.7 mg/dL (0.0-1.2) Aspartate Amino Transf (AST/SGOT) 15 U/L (5-40) Alanine Aminotransferase (ALT/SGPT) 5 U/L (3-33) Alkaline Phosphatase 126 U/L (35-104) H Total Protein 7.1 g/dL (6.6-8.7) Albumin 3.3 g/dL (3.5-5.2) L Globulin 3.8 g/dL Albumin/Globulin Ratio 0.8 (1.0-2.7) L Intake and Output 03/04/17 03/05/17 19:00 07:00 Intake Total 1055 ml 235 ml Output Total 400 ml Balance 1055 ml -165 ml Intake Oral 600 ml 180 ml IV Total 205 ml 55 ml Blood Product 250 ml Output Urine Total 400 ml # Voids 4 3 Objective General Appearance: WD/WN, no apparent distress, alert EENT: PERRL/EOMI, normal ENT inspection Neck: non-tender, normal alignment, supple, normal inspection Cardiovascular: normal peripheral pulses, no gallop/murmur, no JVD, bradycardia Respiratory/Chest: chest wall non-tender, lungs clear, normal breath sounds, no respiratory distress, no accessory muscle use Abdomen: normal bowel sounds, non tender, soft, no organomegaly, no mass Extremities: normal range of motion Neurologic: treater helper II-XII 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, no motor/sensory deficits Skin: normal pigmentation, warm/dry Assessment/Plan Problem List: (1) Hypotension Assessment & Plan: cont dopamine. (2) Cerebral vascular disease (3) Sick sinus syndrome Assessment & Plan: S/P pacemaker implantaion 03/03/17-see cardiology note. (4) Aortic valve replaced Assessment & Plan: hold coumadin for pacemaker implant today 03/03/17 (5) Bradycardia Assessment & Plan: D/C digoxin per cardiology (6) Atrial fibrillation Assessment & Plan: Restart coumadin per cardiology (7) Diabetes mellitus Assessment & Plan: Continue novolog sliding scale. (8) Hypercholesteremia Status: stable Assessment/Plan D/C home today. F/U Dr Carmona in 1 week. NIKKI TAYLOR Mar 05, 2017 14:41
--- NOTE | 2017-03-05 14:42 | Internal Med Progress Note ---
Subjective Physician Name Kobi Real Attending Physician Kobi Real MD Current Medications Medications (Trade) Dose Ordered Sig/Grisel Route PRN Reason Start Time Stop Time Status Last Admin Dose Admin Acetaminophen (Tylenol) 650 mg Q4H PRN ORAL fever 03/04/17 23:51 04/03/17 23:50 Acetaminophen (Tylenol) 650 mg Q6H PRN ORAL Headache/Mild Pain 03/05/17 23:51 04/04/17 23:50 Acetaminophen/ Codeine Phosphate (Tylenol #3) 1 tab Q4H PRN ORAL Moderate Pain (Pain Scale 4-6) 03/05/17 00:00 03/12/17 00:00 Al Hydroxide/Mg Hydroxide (Mylanta II) 30 ml Q6H PRN ORAL dyspepsia 03/04/17 23:52 04/03/17 23:51 Cefazolin Sodium/ Dextrose (Ancef/D5W) 55 ml @ 110 mls/hr Q8HR IVP 03/05/17 06:00 03/12/17 05:59 03/05/17 05:12 Chlorhexidine Gluconate (Pascale-Hex 2%) 1 applic BEDTIME TOPIC 03/05/17 21:00 04/04/17 20:59 Dextrose (Dextrose 50%) STAT PRN IV Hypoglycemia 03/04/17 23:53 04/03/17 23:52 Insulin Aspart (NovoLOG) BEFORE MEALS AND HS SUBQ 03/05/17 06:30 04/04/17 06:29 03/05/17 11:30 Lorazepam (Ativan 2mg/ml 1ml) 0.5 mg Q4H PRN IV For Anxiety 03/04/17 23:53 03/11/17 23:52 Metoprolol Tartrate (Lopressor) 25 mg Q12HR ORAL 03/05/17 09:00 04/04/17 08:59 03/05/17 09:33 Morphine Sulfate (Morphine Sulfate) 1 mg Q4H PRN IVP For Pain 03/05/17 00:00 03/12/17 00:00 Morphine Sulfate (Morphine Sulfate) 2 mg Q6H PRN IVP Severe Pain (Pain Scale 7-10) 03/04/17 23:54 03/11/17 23:53 Ondansetron HCl (Zofran) 4 mg Q6H PRN IVP Nausea & Vomiting 03/04/17 23:54 04/03/17 23:53 Pantoprazole (Protonix) 40 mg EVERY 12 HOURS ORAL 03/05/17 09:00 04/04/17 08:59 03/05/17 09:32 Polyethylene Glycol (Miralax) 17 gm HSPRN PRN ORAL Constipation 03/04/17 23:55 04/03/17 23:54 Warfarin Sodium (Coumadin per pharmacy) 1 ea DAILY PRN MISC Per rx protocol 03/05/17 09:00 04/04/17 08:59 Warfarin Sodium (Coumadin) 6 mg COUMADIN ONCE ORAL 03/05/17 17:00 03/05/17 17:01 Zolpidem Tartrate (Ambien) 5 mg HSPRN PRN ORAL Insomnia 03/04/17 23:55 04/03/17 23:54 Allergies: Coded Allergies: No Known Allergies (Unverified , 09/17/16) Subjective awake, responsive, NAD Objective Last Vital Signs Date Time Temp Pulse Resp B/P Pulse Ox O2 Delivery O2 Flow Rate FiO2 03/05/17 11:53 97.0 99 18 126/65 98 Nasal Cannula 2.0 03/04/17 19:08 28 Laboratory Tests Test 03/04/17 17:45 03/05/17 06:15 White Blood Count 5.7 K/UL (4.8-10.8) 5.1 K/UL (4.8-10.8) Red Blood Count 3.01 M/UL (4.20-5.40) L 3.08 M/UL (4.20-5.40) L Hemoglobin 9.0 G/DL (12.0-16.0) L 8.9 G/DL (12.0-16.0) L Hematocrit 27.3 % (37.0-47.0) L 28.2 % (37.0-47.0) L Mean Corpuscular Volume 91 FL (80-99) 92 FL (80-99) Mean Corpuscular Hemoglobin 29.8 PG (27.0-31.0) 29.0 PG (27.0-31.0) Mean Corpuscular Hemoglobin Concent 32.9 G/DL (32.0-36.0) 31.6 G/DL (32.0-36.0) L Red Cell Distribution Width 14.4 % (11.6-14.8) 14.5 % (11.6-14.8) Platelet Count 144 K/UL (150-450) L 150 K/UL (150-450) Mean Platelet Volume 6.0 FL (6.5-10.1) L 7.9 FL (6.5-10.1) Neutrophils (%) (Auto) 71.8 % (45.0-75.0) 67.3 % (45.0-75.0) Lymphocytes (%) (Auto) 17.4 % (20.0-45.0) L 21.2 % (20.0-45.0) Monocytes (%) (Auto) 6.5 % (1.0-10.0) 7.2 % (1.0-10.0) Eosinophils (%) (Auto) 3.4 % (0.0-3.0) H 3.3 % (0.0-3.0) H Basophils (%) (Auto) 0.9 % (0.0-2.0) 1.0 % (0.0-2.0) Prothrombin Time 11.0 SEC (9.30-11.50) Prothromb Time International Ratio 1.1 (0.9-1.1) Activated Partial Thromboplast Time 37 SEC (23-33) H Sodium Level 142 mEQ/L (135-145) Potassium Level 3.7 mEQ/L (3.4-4.9) Chloride Level 102 mEQ/L (98-107) Carbon Dioxide Level 27 mEQ/L (20-30) Anion Gap 13 (5-15) Blood Urea Nitrogen 23 mg/dL (7-23) Creatinine 1.1 mg/dL (0.5-0.9) H Estimat Glomerular Filtration Rate mL/min (>60) Glucose Level 129 mg/dL (74-106) H Calcium Level 8.8 mg/dL (8.6-10.2) Phosphorus Level 2.8 mg/dL (2.5-4.8) Magnesium Level 2.5 mg/dL (1.7-2.5) Total Bilirubin 0.7 mg/dL (0.0-1.2) Aspartate Amino Transf (AST/SGOT) 15 U/L (5-40) Alanine Aminotransferase (ALT/SGPT) 5 U/L (3-33) Alkaline Phosphatase 126 U/L (35-104) H Total Protein 7.1 g/dL (6.6-8.7) Albumin 3.3 g/dL (3.5-5.2) L Globulin 3.8 g/dL Albumin/Globulin Ratio 0.8 (1.0-2.7) L Intake and Output 03/04/17 03/05/17 19:00 07:00 Intake Total 1055 ml 235 ml Output Total 400 ml Balance 1055 ml -165 ml Intake Oral 600 ml 180 ml IV Total 205 ml 55 ml Blood Product 250 ml Output Urine Total 400 ml # Voids 4 3 Objective General: No acute distress, awake and alert HEENT: NCAT, sclera anicteric, PERRL, EOMI. Neck: Supple, no significant jugular venous distention, Lungs: Fair inspiratory effort, clear to auscultation bilaterally, no Wheeze or Rales. Heart: Regular rate and rhythm, normal S1/S2, no murmurs, Left side Pacemaker. Abdomen: soft, nontender, nondistended. Normoactive bowel sounds. Extremities: No Cyanosis , clubbing or edema. Neuro: A&O x 3, Able to move all extremities Skin: warm, no rashes or lesions Psych: Normal mood and affect Assessment/Plan Assessment/Plan Assessment/Plan (1) Hypotension (2) Cerebral vascular disease (3) Sick sinus syndrome S/P pacemaker implanted &. (4) Aortic valve replaced Restart Coumadin and Lovenox (5) Bradycardia (6) Atrial fibrillation (7) Diabetes mellitus (8) Hypercholesteremia Plan: Dc home today discuss with caregiver at bedside Home health to F/U advise to F/U with my office in 1 week. Kobi Real MD Mar 05, 2017 14:42
[2017-03-05 15:56] VITALS: BP 139/66
[2017-03-05] MEDS ORDERED: NS 275ml ONE ×2 (16:31)
[2017-03-05] MEDS ORDERED: Tubing Blood Filter IV ONE (16:31)
[2017-03-05] MEDS ORDERED: Tubing IV Secondary IV ONE (16:31)
[2017-03-05] MEDS ORDERED: D5 1/2NS 1000ml IV ONE (16:31)
[2017-03-05] MEDS ORDERED: Warfarin Sodium 3mg ORAL ONE (17:00)
[2017-03-05] MEDS ORDERED: Dyna-Hex 2% Top Sol 8oz TOPIC SCH (21:00)
--- NOTE | 2017-03-06 09:30 | Discharge Summary ---
Discharge Summary Hospital Course Date of Admission Feb 27, 2017 at 18:20 Date of Discharge Mar 05, 2017 at 16:32 Admitting Diagnosis bradycardia HPI Riana Galloway is a 71 year old female who was admitted on Feb 27, 2017 at 18:20 for Bradycardia Hospital Course [id number] Discharge Discharge Disposition Patient was discharged to Home with Home Health(06) Discharge Diagnoses: Kirsten Ellison NP Mar 06, 2017 09:30
--- NOTE | 2017-03-06 22:16 | Discharge Summary 2 SIG ---
DATE OF ADMISSION: 02/27/2017 DATE OF DISCHARGE: 03/05/2017 CONSULTANTS: 1. Osmany Carmona M.D. 2. Remedios Albarran M.D. BRIEF HOSPITAL COURSE: The patient is a 71-year-old female, who was seen by a visiting nurse on 02/27/2017 and was found to have blood pressure systolic in the 80s and heart rate was in the 40s. The patient was brought in by EMS to ED. On evaluation, the patient was bradycardic and was emergently treated with atropine. She has a history of mitral valve replacement and is anticoagulated. She responded to atropine with increase in heart rate. Repeat EKG showed normal sinus rhythm. External pacemaker pads were placed. Again the patient went bradycardic and another 0.5 mg atropine was given. Attempted external synchronized cardioversion, however the patient was not able to tolerate. Isuprel, was not available from pharmacy. The patient was then started on dobutamine drip and was transferred to ICU. The patient was admitted to ICU for profound bradycardia, most probably secondary to medications. Coreg and Digoxin were discontinued. The patient was resumed on Coumadin. The patient has paroxysmal atrial fibrillation with trifascicular block. The patient still developed junctional rhythm despite being on dobutamine. Dopamine was added. She has been off AV anupama krupa. Coumadin was placed on hold. The patient underwent dual-chamber permanent pacemaker implantation on 03/03/2017. She tolerated the procedure well and postprocedure remained AV paced. Pacer interrogation showed normal function with no ventricular tachycardia. Coumadin was resumed. She was restarted on Lopressor 25 mg b.i.d. Echocardiogram showed 55 to 60% ejection fraction, same from last echocardiogram of September 2016. She was given Lasix for CHF. BNP was elevated to 800. She was eventually discharged home with home health. Follow-up with Dr. Real in a week. FINAL DIAGNOSES: 1. Sick sinus syndrome, status post pacemaker implantation on 03/03/2017. 2. Aortic valve replacement 3. Bradycardia. 4. Hypotension. 5. Paroxysmal atrial fibrillation. 6. Diabetes mellitus. 7. Hypercholesterolemia. 8. Cerebrovascular disease. 9. Acute on chronic congestive heart failure with diastolic dysfunction. 10. Anemia. 11. Hypercholesterolemia. Kobi Real M.D. I have been assigned to dictate discharge summary on this account and I was not involved in the patient's management. Kirsten Ellison N.P. DR: Storm JOB#: [id number] CC: PIOTR
--- NOTE | 2017-03-07 13:58 | Cardiology Report ---
APPROVED REPORT EKG Measurement Heart [id number] CO 178P [id number] Abnormal ECG Atrioventricular Sequential Pacemaker
== END 2017-03-05 16:32 | disposition home health service (06) | DRG 242 ==
LOC: EMR 17:30 → 2W 18:20 → EDBEDREQ 18:35 → ICU 21:45 → 2E 03-04 22:46
PROC: B548ZZA Ultrasonography of Superior Vena Cava, Guidance (ICD-10-PCS; principal; 2017-03-03 18:50)
PROC: 02HV33Z Insertion of Infusion Device into Superior Vena Cava, Percutaneous Approach (ICD-10-PCS; principal; 2017-03-03 18:50)
PROC: 02H63JZ Insertion of Pacemaker Lead into Right Atrium, Percutaneous Approach (ICD-10-PCS; principal; 2017-03-03 18:50)
PROC: 02HK3JZ Insertion of Pacemaker Lead into Right Ventricle, Percutaneous Approach (ICD-10-PCS; principal; 2017-03-03 18:50)
PROC: 0JH606Z Insertion of Pacemaker, Dual Chamber into Chest Subcutaneous Tissue and Fascia, Open Approach (ICD-10-PCS; principal; 2017-03-03 18:50)
DX: I49.5 Sick sinus syndrome (principal); N17.0 Acute kidney failure with tubular necrosis; I47.2 Ventricular tachycardia; I50.33 Acute on chronic diastolic (congestive) heart failure; I95.9 Hypotension, unspecified; E88.09 Other disorders of plasma-protein metabolism, not elsewhere classified; I11.0 Hypertensive heart disease with heart failure; I48.0 Paroxysmal atrial fibrillation; I69.920 Aphasia following unspecified cerebrovascular disease; E11.9 Type 2 diabetes mellitus without complications; Z95.2 Presence of prosthetic heart valve; I25.10 Atherosclerotic heart disease of native coronary artery without angina pectoris; Z95.1 Presence of aortocoronary bypass graft; R06.00 Dyspnea, unspecified
CPT/HCPCS: 36415; 36569; 36600; 71010; 76937; 80048; 80053; 80061; 80162; 82378; 82550; 82553; 82607; 82746; 82803; 82962; 83540; 83550; 83615; 83735; 83880; 84100; 84439; 84443; 84484; 85007; 85025; 85044; 85060; 85610; 85651; 85730; 86850; 86900; 86901; 86920; 87081; 93005; 93306; 93970; 94003; 94150; 94664; 94760; J1815; J2250; J2405

== ENCOUNTER 2019-08-08 14:39 | Inpatient (IN) | payer MEDICARE, MEDICAID ==
[~2019-08-08] VITALS: Ht 157.5 cm; Wt 46.9 kg
[~2019-08-08 14:39] MED LIST changes: +LOVENOX60 MG/0.6 SUBQ; +MECLIZINE HCL25 MG ORAL; +WARFARIN SODIUM1 MG ORAL
--- NOTE | 2019-08-08 15:00 | NUR ---
Note undone in EDM - 08/08/19 at 1919 by MADALYN ED Nurse Note: Patient walked in from home brought in by caregiver d/t c/o lower abdominal pain. Per caregiver, she has been c/o abdominal pain for two days and it is intermittent. Patient aao x 4 and ambulatory with cane. Patient c/o pain 05/17. 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 No acute distress noted at this time.
[2019-08-08 15:01] VITALS: BP 98/52
--- NOTE | 2019-08-08 15:03 | NUR ---
ED Nurse Note: x-ray at bedside.
[2019-08-08] MEDS ORDERED: Omnipaque-300 100ml vial INJ PRN (15:30)
[2019-08-08] MEDS ORDERED: METOPROLOL TART50 MG ORAL (15:31)
[2019-08-08] MEDS ORDERED: PRINIVIL10 MG ORAL (15:31)
[2019-08-08] MEDS ORDERED: DIGOXIN125 MCG ORAL (15:31)
[2019-08-08] MEDS ORDERED: FAMOTIDINE20 MG ORAL (15:31)
[2019-08-08] MEDS ORDERED: SPIRONOLACTONE25 MG ORAL (15:31)
[2019-08-08] MEDS ORDERED: METFORMIN HCL500 M1 ORAL (15:31)
--- NOTE | 2019-08-08 15:36 | Emergency Room Report ---
History of Present Illness General Chief Complaint: Abdominal Pain Source: Patient Present Illness HPI Patient presents with complaints of mid abdominal pain periumbilical Started on Thursday the patient has had increased nausea denies any vomiting denies any diarrhea Denies any chest pain or shortness of breath pain is a cramping sharp pain in nature Denies any other radiation patient has been unable to take her medications Has had significant decreased oral intake Denies any fall or trauma patient has had previous umbilical hernia surgery Allergies: Coded Allergies: No Known Allergies (Unverified , 09/17/16) Patient History Past Medical History: see triage record Reviewed Nursing Documentation: PMH: Agreed; PSxH: Agreed Nursing Documentation-PMH Past Medical History: No History, Except For Hx Cardiac Problems: Yes - Anorectal Surgery Hx Hypertension: Yes Hx Diabetes: Yes Hx Cancer: No Hx Gastrointestinal Problems: Yes Hx Neurological Problems: No Hx Cerebrovascular Accident: Yes - 1990 Hx Speech Problem: Yes - unable express self,limited conversation Hx Dizziness: Yes - 09/090 Hx Weakness: Yes - right side slightly weaker than left side body Review of Systems All Other Systems: negative except mentioned in HPI Physical Exam Vital Signs Date Time Temp Pulse Resp B/P (MAP) Pulse Ox O2 Delivery O2 Flow Rate FiO2 08/08/19 14:42 97.5 85 17 99/56 (70) 97 Room Air Sp02 EP Interpretation: reviewed, normal General Appearance: mild distress - In acute pain Head: normocephalic, atraumatic Eyes: bilateral eye PERRL, bilateral eye EOMI ENT: hearing 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, dry mucus membranes Neck: supple Respiratory: lungs clear, no respiratory distress, no retraction Cardiovascular #1: regular rate, rhythm Gastrointestinal: no mass, no bruit, no hernia, other - Tender on palpation mid periumbilical region no obvious distention decreased bowel sounds are noted, Genitourinary: no CVA tenderness Musculoskeletal: normal inspection Neurologic: alert, oriented, oriented x3 Psychiatric: normal inspection Skin: no rash Lymphatic: normal inspection Procedures Critical Care Time Critical Care Time 50 minutes for multiple re-evaluations critical findings concerning for life- threatening process not including procedural time Medical Decision Making Diagnostic Impression: Primary Impression: Intra abdominal hemorrhage Additional Impression: Atrial fibrillation with RVR ER Course Given the patient's history and presentation multiple differentials and consideration including but not limited to bowel obstruction, ileus, strangulation UTI Patient is on anticoagulation given her age and presentation imaging is also obtained At this time there is concerning findings showing blood in the lower abdominal region General surgery is contacted emergently patient at this time is paced on the hospital monitor Also anticoagulation is at 3.0 and with blood in the abdominal area recommendation is made for rapid Reversal of this process Patient remains appropriate hemodynamically with regards to her heart rate and blood pressure hemoglobin is similar to previous However the findings are concerning and patient admitted to monitored bed for further care Labs Test 08/08/19 15:23 08/08/19 15:31 White Blood Count 7.6 K/UL (4.8-10.8) Red Blood Count 3.07 M/UL (4.20-5.40) Hemoglobin 8.9 G/DL (12.0-16.0) Hematocrit 27.0 % (37.0-47.0) Mean Corpuscular Volume 88 FL (80-99) Mean Corpuscular Hemoglobin 29.0 PG (27.0-31.0) Mean Corpuscular Hemoglobin Concent 33.0 G/DL (32.0-36.0) Red Cell Distribution Width 16.3 % (11.6-14.8) Platelet Count 160 K/UL (150-450) Mean Platelet Volume 6.9 FL (6.5-10.1) Neutrophils (%) (Auto) 72.4 % (45.0-75.0) Lymphocytes (%) (Auto) 15.3 % (20.0-45.0) Monocytes (%) (Auto) 10.0 % (1.0-10.0) Eosinophils (%) (Auto) 1.5 % (0.0-3.0) Basophils (%) (Auto) 0.8 % (0.0-2.0) Prothrombin Time 30.1 SEC (9.30-11.50) Prothromb Time International Ratio 3.0 (0.9-1.1) Activated Partial Thromboplast Time 44 SEC (23-33) Sodium Level 137 MMOL/L (136-145) Potassium Level 4.8 MMOL/L (3.5-5.1) Chloride Level 101 MMOL/L (98-107) Carbon Dioxide Level 30 MMOL/L (21-32) Anion Gap 6 mmol/L (5-15) Blood Urea Nitrogen 44 mg/dL (7-18) Creatinine 1.6 MG/DL (0.55-1.30) Estimat Glomerular Filtration Rate mL/min (>60) Glucose Level 146 MG/DL (74-106) Calcium Level 9.2 MG/DL (8.5-10.1) Total Bilirubin 0.9 MG/DL (0.2-1.0) Aspartate Amino Transf (AST/SGOT) 24 U/L (15-37) Alanine Aminotransferase (ALT/SGPT) 18 U/L (12-78) Alkaline Phosphatase 181 U/L (46-116) Troponin I 0.037 ng/mL (0.000-0.056) Total Protein 8.0 G/DL (6.4-8.2) Albumin 3.3 G/DL (3.4-5.0) Globulin 4.7 g/dL Albumin/Globulin Ratio 0.7 (1.0-2.7) Lipase 496 U/L (73-393) Urine Color Pale yellow Urine Appearance Clear Urine pH 7 (4.5-8.0) Urine Specific [place] 1.005 (1.005-1.035) Urine Protein Negative (NEGATIVE) Urine Glucose (UA) Negative (NEGATIVE) Urine Ketones Negative (NEGATIVE) Urine Blood 1+ (NEGATIVE) Urine Nitrite Negative (NEGATIVE) Urine Bilirubin Negative (NEGATIVE) Urine Urobilinogen Normal MG/DL (0.0-1.0) Urine Leukocyte Esterase 1+ (NEGATIVE) Urine RBC 0-2 /HPF (0 - 2) Urine WBC 2-4 /HPF (0 - 2) Urine Squamous Epithelial Cells Few /LPF (NONE/OCC) Urine Bacteria Few /HPF (NONE) Urine Fine Granular Casts 0-2 /LPF (NONE) EKG Diagnostic Results Rate: normal Rhythm: other - paced ST Segments: other Rhythm Strip Diag. Results EP Interpretation: yes Rate: 80 Rhythm: other - paced Chest X-Ray Diagnostic Results Chest X-Ray Diagnostic Results : Chest X-Ray Ordered: Yes # of Views/Limited/Complete: 1 View Indication: Chest Pain EP Interpretation: Yes Interpretation: no consolidation, no effusion, other - Cardiomegaly Impression: No acute disease CT/MRI/US Diagnostic Results CT/MRI/US Diagnostic Results : Impression CT abdomen pelvis: AddendumFindings were discussed with Dr. Arun Davis in emergency department approximately 5:05 PM 08/08/2019. Patient has an INR of 3. The hemoperitoneum is likely spontaneous given the underlying coagulopathy. OriginalIMPRESSION: Pelvic hemoperitoneum with moderate organized clot in the cul-de-sac. Nature of this is not known but consider possibility of a ruptured ovarian cyst and/or mass. Question of an ovarian dermoid on the left side. Differential includes trauma, iatrogenic causes from recent surgery/procedures, coagulopathies, antiocoagulation Rx or other causes of hemoperitoneum. Calcified uterine fibroid. Severe cardiomyopathy with biatrial chamber enlargement. Distended IVC and hepatic veins probably on the basis of tricuspid regurgitation or right heart failure. Atherosclerotic vascular disease. Pacemaker. Hiatal hernia. Mesenteric nodularity and reticulation may be on the basis of ascites/ hemoperitoneum described earlier. Last Vital Signs Date Time Temp Pulse Resp B/P (MAP) Pulse Ox O2 Delivery O2 Flow Rate FiO2 08/08/19 15:01 97.3 88 22 98/52 98 Room Air Status: improved Disposition: ADMITTED INPATIENT Condition: Critical Referrals: Kobi Real MD (PCP) Arun Davis DO Aug 08, 2019 15:36
--- NOTE | 2019-08-08 15:49 | Diagnostic Imaging Report ---
Indication: Chest pain Comparison: 03/04/2017 A single view chest radiograph was obtained. Findings: There is a pacemaker on the left. Sternotomy again noted. No definite infiltrate or pulmonary vascular congestion identified. The heart is moderately enlarged. The aorta is mildly enlarged consistent with atherosclerotic vascular disease. The bones are osteopenic. Impression: No acute disease
[2019-08-08 15:53] LABS: APPEARANCE,URINE CLEAR; BILIRUBIN, URINE NEGATIVE (NEGATIVE); COLOR,URINE PALE YELLOW; GLUCOSE, URINE (UA) NEGATIVE (NEGATIVE); KETONES,URINE NEGATIVE (NEGATIVE); LEUKOCYTE ESTERASE ,URINE 1+ (NEGATIVE); NITRITE,URINE NEGATIVE (NEGATIVE); PH,URINE 7 (4.5-8.0); PROTEIN,URINE NEGATIVE (NEGATIVE); UROBILINOGEN,URINE NORMAL MG/DL (0.0-1.0)
[2019-08-08 16:00] LABS: ANION GAP 6 mmol/L (5-15); BLOOD UREA NITROGEN 44 mg/dL (7-18); CALCIUM 9.2 MG/DL (8.5-10.1); CARBON DIOXIDE 30 MMOL/L (21-32); CHLORIDE 101 MMOL/L (98-107); CREATININE 1.6 MG/DL (0.55-1.30); POTASSIUM 4.8 MMOL/L (3.5-5.1); SODIUM 137 MMOL/L (136-145)
[2019-08-08] MEDS ORDERED: Morphine Sulfate 4mg/ml Inj (IV USE ONLY) IVP ONE (16:00)
[2019-08-08 16:04] LABS: BASOPHILS % (AUTO) 0.8 % (0.0-2.0); EOSINOPHILS % (AUTO) 1.5 % (0.0-3.0); HEMOGLOBIN 8.9 G/DL (12.0-16.0); LYMPHOCYTES % (AUTO) 15.3 % (20.0-45.0); MEAN CORPUSCULAR VOLUME 88 FL (80-99); NEUTROPHILS % (AUTO) 72.4 % (45.0-75.0); PLATELET COUNT 160 K/UL (150-450); RED BLOOD COUNT 3.07 M/UL (4.20-5.40); RED CELL DISTRIBUTION WIDTH 16.3 % (11.6-14.8); WHITE BLOOD COUNT 7.6 K/UL (4.8-10.8)
[2019-08-08 16:08] LABS: ALANINE AMINOTRANSFERASE 18 U/L (12-78); ALBUMIN 3.3 G/DL (3.4-5.0); ALBUMIN/GLOBULIN RATIO 0.7 (1.0-2.7); ALKALINE PHOSPHATASE 181 U/L (46-116); ASPARTATE AMINO TRANSFERASE 24 U/L (15-37); BILIRUBIN,TOTAL 0.9 MG/DL (0.2-1.0)
--- NOTE | 2019-08-08 16:13 | NUR ---
ED Nurse Note: patient taken to CT
--- NOTE | 2019-08-08 16:30 | NUR ---
ED Nurse Note: Patient returned from CT in stable condition and placed back on ekg monitor tech.
--- NOTE | 2019-08-08 17:04 | Diagnostic Imaging Report ---
Indication: Abdominal pain Technique: Continuous helical transaxial imaging of the abdomen and pelvis was obtained from the lung bases to the pubic symphysis. No intravenous contrast was administered. Coronal 2-D reformats were also obtained. Automatic Exposure Control was utilized. Total Dose length Product (DLP): 525.[address] Dose Index Volume (CTDIvol): 9.1 mGy Comparison: none Findings: There is a severe cardiomegaly with biatrial chamber enlargement. 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 Pacemaker is present. There is a hiatal hernia. The lung bases are clear. The IVC and hepatic veins are markedly enlarged. There are generalized reticular densities throughout the mesentery and omentum nonspecific. There is some free fluid within the pelvis especially in the area of the cul-de-sac posterior to the uterus. The fluid has a areas of increased density, suspicious for blood. The nature of the hemoperitoneum is not known and the clinical correlation is needed. There are no signs of trauma or any history of such. There is a hypodensity within the left hemipelvis measuring about 1.7 cm which could be an ovarian cyst. Consider rupture of an ovarian cyst or mass is certainly possible. There may be 1 cm focus of fat (image #[id number] [id number]) in association with the left ovary and adjacent to the cystic focus suggesting the possibility of an ovarian dermoid. There is a calcified fibroid within the uterus measuring 1.6 cm. IMPRESSION: Pelvic hemoperitoneum with moderate organized clot in the cul-de-sac. Nature of this is not known but consider possibility of a ruptured ovarian cyst and/or mass. Question of an ovarian dermoid on the left side. Differential includes trauma, iatrogenic causes from recent surgery/procedures, coagulopathies, antiocoagulation Rx or other causes of hemoperitoneum. Calcified uterine fibroid. Severe cardiomyopathy with biatrial chamber enlargement. Distended IVC and hepatic veins probably on the basis of tricuspid regurgitation or right heart failure. Atherosclerotic vascular disease. Pacemaker. Hiatal hernia. Mesenteric nodularity and reticulation may be on the basis of ascites/hemoperitoneum described earlier. The CT scanner at [facility] is accredited by the [employer] and the scans are performed using dose optimization techniques as appropriate to a performed exam including Automatic Exposure control.
[2019-08-08] MEDS ORDERED: Phytonadione 10 mg/mL 1ml amp SUBQ ONE (17:15)
[2019-08-08 17:30] VITALS: BP 99/48
[2019-08-08] MEDS ORDERED: Morphine Sulfate 2mg/ml Inj(IV/IM USE ONLY) IVP PRN (17:30)
[2019-08-08] MEDS ORDERED: Nitroglycerin Subl 0.4mg tab SL PRN (17:30)
[2019-08-08] MEDS ORDERED: Ketorolac 30mg Inj IV PRN (17:30)
--- NOTE | 2019-08-08 17:30 | NUR ---
ED Nurse Note: Called blood bank for FFP. Will call us as soon as it is ready.
--- NOTE | 2019-08-08 18:45 | NUR ---
ED Nurse Note: Patient informed consent for blood tranfusion completed with patient by EDER. Patient provided with blood transfusion education forms in mongolian and bengali, patient verbalized understanding.
--- NOTE | 2019-08-08 18:53 | NUR ---
ED Nurse Note: Patient consent for blood tranfusion filled out and signed. Patient provided with blood transfusion education forms in [place], patient verbalized understanding.
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
--- NOTE | 2019-08-08 19:13 | NUR ---
ED Nurse Note: pt care endorsed by BELINDA May. pt started on frozen plasma transfusion. Dr. Soria at pt bedside. plasma infusion rate started at 80 mL/ hr for first 15 minutes. will monitor for adverse reaction Addendum: 08/08/19 at 1959 by RAYNAE pt identification and plasma verified with BELINDA Andersen. consent form signed. pt understands symptoms of adverse reaction and when to notify RN. will continue to monitor patient for first 15 minutes of infusion.
--- NOTE | 2019-08-08 19:15 | NUR ---
ED Nurse Note: Report given to BELINDA Manuel in telemetry.
--- NOTE | 2019-08-08 19:20 | NUR ---
HAND-OFF: Report given to BELINDA Segura.
--- NOTE | 2019-08-08 19:28 | NUR ---
ED Nurse Note: pt has stable vital signs, no signs of adverse reaction to infusion. per ERMD, infusion rate will be 280 mL/hr for packed cells to run over 1 hour. pt will be transferred to floor. report given to BELINDA Manuel
--- NOTE | 2019-08-08 19:40 | NUR ---
ED Nurse Note: pt transferred to floor to care of primary nurse Mar. pt belongings sent home with pt
--- NOTE | 2019-08-08 19:43 | History & Physical ---
History and Physical History & Physicial Dictated for Int Med-DR Real no. [id number]. Sher Hansen MD Aug 08, 2019 19:43
[2019-08-08 19:48] VITALS: BP 114/51
--- NOTE | 2019-08-08 19:50 | NUR ---
NURSE NOTES: Pt received from BELINDA Segura alert and oriented x4, Irish speaking with no acute s/s of distress noted. IV site asymptomatic and patent on R ac 20g, currently finishing 1 unit of Fresh Frozen Plasma, VS stable upon admission. No wounds noted upon admission. Patient has beanie with her. Granddaughter dropped off pt's home meds for review - med recon done. RN communicated to pt that she can place meds in inpatient pharmacy or it must be brought home. Pt refused to have meds dropped off at inpatient pharmacy, communicated that she wanted her family to bring home medications to prevent double dosing and medication complications, pt verbalized understanding. RN made Charge Nurse aware, will communicate to AM nurse. Bed in lowest position, bed alarm on. Call light and belongings within reach.
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
[2019-08-08] MEDS ORDERED: Miralax 17gm pkt ORAL PRN (21:00)
[2019-08-08] MEDS: NovoLOG Insulin Flexpen SUBQ SCH (21:00)
[2019-08-08] MEDS ORDERED: Heparin 5000 units/ml inj SUBQ SCH (21:00)
[2019-08-08] MEDS ORDERED: WARFARIN SODIUM5 MG ORAL (21:10)
[2019-08-08] MEDS: Metoprolol Tartrate 50mg tab ORAL SCH (22:06)
[2019-08-09] VITALS: BP 110/55
[2019-08-09] MEDS: NovoLOG Insulin Flexpen SUBQ SCH ×4 (06:02→21:36)
--- NOTE | 2019-08-09 07:00 | NUR ---
NURSE NOTES: PT AWAKE ALERT, NO DISTRESS. NO SOB. CALL LIGHT WITHIN REACH , USES CANE WHEN WALKING, 20G ON RAC INTACT
--- NOTE | 2019-08-09 07:15 | Consultation ---
DATE OF CONSULTATION: 08/09/2019 CONSULTING PHYSICIAN: Charan Pimentel M.D. CHIEF COMPLAINT: Abdominal pain. HISTORY OF PRESENT ILLNESS: This is a very pleasant 73-year-old female with multiple medical problems, history of aortic valve replacement x2, currently on Coumadin, came to the hospital with complaint of abdominal pain since 08/06/2019. Since admission, she has had a CT of the abdomen and pelvis, which showed evidence of pelvic hemoperitoneum, possibly from ruptured ovarian cyst, mass, or any other pathology. She was admitted for that. PAST MEDICAL HISTORY: 1. Hypertension. 2. Diabetes type 2. 3. Atrial fibrillation. 4. Hypercholesterolemia. 5. History of CVA. 6. History of bradycardia requiring pacemaker placement. 7. Aortic valve replacement x2, on Coumadin. ALLERGIES: No known drug allergies. MEDICATIONS: Please see medication reconciliation list. PAST SURGICAL HISTORY: Right femoral hernia repair, hemorrhoidectomy, bilateral cataract surgery, aortic valve replacement in 1985 and also in 1995, pacemaker placement in 2016. SOCIAL HISTORY: The patient denies any tobacco, alcohol, or drug abuse. FAMILY HISTORY: Noncontributory. REVIEW OF SYSTEMS: A 10-point review of systems was performed and pertinent positives in HPI. PHYSICAL EXAMINATION: GENERAL: Well-developed female. VITAL SIGNS: Temperature is 98.4, pulse 74, respirations 18, blood pressure is 110/55. HEENT: Normocephalic and atraumatic. Sclerae pale. NECK: Supple. No evidence of obvious lymphadenopathy. CARDIOVASCULAR: Regular rate and rhythm. Pacemaker in place. There is a murmur in the left sternal border from the aortic valve replacement. LUNGS: Decreased breath sounds bilaterally based on the supine exam. ABDOMEN: Soft, nontender. No rebound. No guarding. No peritoneal sign. EXTREMITIES: No cyanosis, no clubbing, no edema. LABORATORY DATA: White count is 7.6, hemoglobin 8.9, hematocrit 27, platelet count is 160. Chem-7 sodium 137, potassium 4.8, BUN is 44, creatinine 1.6. ASSESSMENT AND PLAN: This is a 73-year-old female with hemoperitoneum. Surgical consultation appreciated. The patient has been kept NPO by Surgery. I looked at the laboratories and hemoglobin from 2017. It was the same as 8.9 as it is today, so I doubt that this bleeding is significant, but given the patient is on Coumadin and has aortic valve, this patient is multidisciplinary consultation including Hematology, Cardiology. From GI standpoint, we are going to start the patient on PPI given the hiatal hernia. We will do anemia workup. Send the stool for OB. Consider any GI procedures if needed, but the patient first needs to be seen by motorcycle engine assembler and Hematology regarding management of her coagulopathy and aortic valve and need for anticoagulation with new hemoperitoneum. I want to thank Dr. Real for this kind referral. Charan Pimentel M.D. DR: NIKOLAS JOB#: [id number] CC: Kobi Real M.D.; Fax#: [phone]
--- NOTE | 2019-08-09 07:18 | NUR ---
HAND-OFF: Report given to BELINDA Vargas.
[2019-08-09 08:00] LABS: HEMATOCRIT 23.6 % (37.0-47.0); HEMOGLOBIN 7.4 G/DL (12.0-16.0); MEAN CORPUSCULAR VOLUME 90 FL (80-99); PLATELET COUNT 126 K/UL (150-450); RED BLOOD COUNT 2.62 M/UL (4.20-5.40); RED CELL DISTRIBUTION WIDTH 16.7 % (11.6-14.8); WHITE BLOOD COUNT 6.7 K/UL (4.8-10.8)
[2019-08-09 08:07] VITALS: BP 96/44
[2019-08-09] MEDS: Metoprolol Tartrate 50mg tab ORAL SCH ×2 (08:08→21:31)
[2019-08-09 08:19] LABS: INR 1.7 (0.9-1.1)
[2019-08-09 08:30] LABS: ALANINE AMINOTRANSFERASE 17 U/L (12-78); ALBUMIN 3.1 G/DL (3.4-5.0); ALBUMIN/GLOBULIN RATIO 0.7 (1.0-2.7); ALKALINE PHOSPHATASE 154 U/L (46-116); AMYLASE 98 U/L (25-115); ANION GAP -1 mmol/L (5-15); ASPARTATE AMINO TRANSFERASE 22 U/L (15-37); BLOOD UREA NITROGEN 46 mg/dL (7-18); CALCIUM 8.5 MG/DL (8.5-10.1); CARBON DIOXIDE 35 MMOL/L (21-32); CHLORIDE 103 MMOL/L (98-107); CREATININE 1.8 MG/DL (0.55-1.30); POTASSIUM 5.3 MMOL/L (3.5-5.1); SODIUM 137 MMOL/L (136-145)
[2019-08-09] MEDS ORDERED: Digoxin 0.125mg tab ORAL SCH (09:00)
[2019-08-09 11:35] VITALS: BP 103/42
--- NOTE | 2019-08-09 11:58 | Consultation ---
History of Present Illness General Date patient seen: Aug 09, 2019 Chief Complaint: Abdominal Pain Reason for Consultation: inpatient managent Present Illness HPI 73 year old female with hx of Sick sinus syndrome, status post pacemaker, chronic anticoagulation, Aortic valve replacement, Paroxysmal atrial fibrillation, Diabetes mellitus, Cerebrovascular disease presented to [facility] with CC of abdominal pain. Her initial CT of abdomen showed some bleeding and clot in the pelvic area. Her INR was 3 and she got a dose of vitamin K and admitted to telemetry for further management. She is comfortable now and doesn't have any pain any more. Allergies: Coded Allergies: No Known Allergies (Unverified , 09/17/16) Medication History Scheduled Alendronate Sodium* (Fosamax*), 70 MG ORAL ONCE A WEEK, (Reported) Atorvastatin Calcium* (Atorvastatin Calcium*), 40 MG ORAL BEDTIME, (Reported) Calcium Carbonate/Vitamin D3 (Calcium 500 + Vit D 200 Tablet), 1 EACH PO DAILY, (Reported) Digoxin* (Digoxin*), 125 MCG ORAL DAILY, (Reported) Docusate Sodium* (Colace*), 200 MG ORAL TWICE A DAY, (Reported) Famotidine* (Pepcid 20mg tablet*), 20 MG ORAL DAILY, (Reported) Ferrous Sulfate* (Ferrous Sulfate*), 325 MG ORAL DAILY, (Reported) Furosemide* (Lasix*), 40 MG ORAL TWICE A DAY, (Reported) Ketorolac Tromethamine (Acular), 1 DROP BOTH EYES FOUR TIMES A DAY, (Reported) Lisinopril* (Prinivil*), 10 MG ORAL DAILY, (Reported) Meclizine Hcl* (Meclizine*), 25 MG ORAL BID, (Reported) Metformin Hcl* (Metformin Hcl*), 500 MG ORAL TWICE A DAY, (Reported) Metoprolol Tartrate* (Metoprolol Tartrate*), 50 MG ORAL EVERY 12 HOURS, ( Reported) Ofloxacin (Ofloxacin), 5 ML OTIC QID, (Reported) Prednisolone Acetate (Pred Forte), 1 DROP RIGHT EYE QID, (Reported) Spironolactone* (Aldactone*), 25 MG ORAL DAILY, (Reported) Warfarin Sod* (Warfarin Sod*), 5 MG ORAL DAILY, (Reported) Scheduled PRN Tramadol Hcl* (Ultram*), 50 MG ORAL Q6H PRN for For Pain, (Reported) Discontinued Medications Enoxaparin (Lovenox), 60 MG SUBQ DAILY Discontinued Reason: Therapy completed Enoxaparin* (Lovenox*), 40 MG SUBQ BID, (Reported) Discontinued Reason: Therapy completed Famotidine* (Pepcid 20mg tablet*), 20 MG ORAL DAILY, (Reported) Discontinued Reason: Medication dose changed Metformin Hcl* (Metformin Hcl*), 850 MG ORAL TID, (Reported) Discontinued Reason: Therapy completed Warfarin Sod* (Warfarin Sod*), 4 MG ORAL DAILY, (Reported) Discontinued Reason: Medication dose changed Warfarin Sod* (Warfarin Sod*), 1 MG ORAL DAILY, (Reported) Discontinued Reason: Medication dose changed Patient History Healthcare decision maker Resuscitation status Full Code Advanced Directive on File Past Medical/Surgical History Past Medical/Surgical History: (1) Status post mitral valve replacement (2) Aortic valve replaced (3) Status post hernia repair (4) Cerebral vascular disease (5) HTN (hypertension) (6) CAD (coronary artery disease) (7) Diabetes mellitus (8) Sick sinus syndrome (9) Atrial fibrillation Review of Systems All Other Systems: negative except mentioned in HPI Physical Exam General Appearance: WD/WN, no apparent distress, cachetic Lines, tubes and drains: peripheral HEENT: normocephalic, anicteric Neck: non-tender, normal alignment Respiratory/Chest: chest wall non-tender, lungs clear, normal breath sounds Breasts: no masses Cardiovascular/Chest: normal peripheral pulses Abdomen: normal bowel sounds Genitourinary/Rectal: normal genital exam Extremities: normal range of motion Last 24 Hour Vital Signs Date Time Temp Pulse Resp B/P (MAP) Pulse Ox O2 Delivery O2 Flow Rate FiO2 08/09/19 11:35 98.4 78 18 103/42 (62) 98 08/09/19 08:17 78 08/09/19 08:08 78 96/44 08/09/19 08:07 98.4 78 18 96/44 (61) 98 08/09/19 07:59 77 08/09/19 04:00 85 08/09/19 00:00 98.4 74 18 110/55 (73) 98 08/09/19 00:00 77 08/08/19 23:01 Room Air 08/08/19 22:06 76 114/51 08/08/19 19:48 82 08/08/19 19:48 98.4 76 18 114/51 (72) 98 08/08/19 19:40 98.2 89 23 113/49 97 Room Air 08/08/19 19:29 98.2 85 23 08/08/19 19:22 98.0 86 25 08/08/19 19:20 98.2 87 22 08/08/19 19:09 98.2 86 16 08/08/19 17:30 97.0 89 24 99/48 97 Room Air 08/08/19 16:43 97.5 08/08/19 15:01 97.3 88 22 98/52 98 Room Air 08/08/19 15:01 88 22 Room Air 08/08/19 14:42 97.5 85 17 99/56 (70) 97 Room Air Intake and Output 08/08/19 08/09/19 18:59 06:59 Intake Total 0 ml 0 ml Balance 0 ml 0 ml Intake Oral 0 ml 0 ml # Voids 3 # Bowel Movements 1 Laboratory Tests Test 08/08/19 15:23 08/08/19 15:31 08/09/19 07:05 White Blood Count 7.6 K/UL (4.8-10.8) 6.7 K/UL (4.8-10.8) Red Blood Count 3.07 M/UL (4.20-5.40) L 2.62 M/UL (4.20-5.40) L Hemoglobin 8.9 G/DL (12.0-16.0) L 7.4 G/DL (12.0-16.0) L Hematocrit 27.0 % (37.0-47.0) L 23.6 % (37.0-47.0) L Mean Corpuscular Volume 88 FL (80-99) 90 FL (80-99) Mean Corpuscular Hemoglobin 29.0 PG (27.0-31.0) 28.3 PG (27.0-31.0) Mean Corpuscular Hemoglobin Concent 33.0 G/DL (32.0-36.0) 31.4 G/DL (32.0-36.0) L Red Cell Distribution Width 16.3 % (11.6-14.8) H 16.7 % (11.6-14.8) H Platelet Count 160 K/UL (150-450) 126 K/UL (150-450) L Mean Platelet Volume 6.9 FL (6.5-10.1) 6.6 FL (6.5-10.1) Neutrophils (%) (Auto) 72.4 % (45.0-75.0) % (45.0-75.0) Lymphocytes (%) (Auto) 15.3 % (20.0-45.0) L % (20.0-45.0) Monocytes (%) (Auto) 10.0 % (1.0-10.0) % (1.0-10.0) Eosinophils (%) (Auto) 1.5 % (0.0-3.0) % (0.0-3.0) Basophils (%) (Auto) 0.8 % (0.0-2.0) % (0.0-2.0) Prothrombin Time 30.1 SEC (9.30-11.50) H 17.8 SEC (9.30-11.50) H Prothromb Time International Ratio 3.0 (0.9-1.1) H 1.7 (0.9-1.1) H Activated Partial Thromboplast Time 44 SEC (23-33) H 41 SEC (23-33) H Sodium Level 137 MMOL/L (136-145) 137 MMOL/L (136-145) Potassium Level 4.8 MMOL/L (3.5-5.1) 5.3 MMOL/L (3.5-5.1) H Chloride Level 101 MMOL/L (98-107) 103 MMOL/L (98-107) Carbon Dioxide Level 30 MMOL/L (21-32) 35 MMOL/L (21-32) H Anion Gap 6 mmol/L (5-15) -1 mmol/L (5-15) L Blood Urea Nitrogen 44 mg/dL (7-18) H 46 mg/dL (7-18) H Creatinine 1.6 MG/DL (0.55-1.30) H 1.8 MG/DL (0.55-1.30) H Estimat Glomerular Filtration Rate mL/min (>60) mL/min (>60) Glucose Level 146 MG/DL (74-106) H 135 MG/DL (74-106) H Calcium Level 9.2 MG/DL (8.5-10.1) 8.5 MG/DL (8.5-10.1) Total Bilirubin 0.9 MG/DL (0.2-1.0) 1.0 MG/DL (0.2-1.0) Aspartate Amino Transf (AST/SGOT) 24 U/L (15-37) 22 U/L (15-37) Alanine Aminotransferase (ALT/SGPT) 18 U/L (12-78) 17 U/L (12-78) Alkaline Phosphatase 181 U/L (46-116) H 154 U/L (46-116) H Troponin I 0.037 ng/mL (0.000-0.056) Total Protein 8.0 G/DL (6.4-8.2) 7.4 G/DL (6.4-8.2) Albumin 3.3 G/DL (3.4-5.0) L 3.1 G/DL (3.4-5.0) L Globulin 4.7 g/dL 4.3 g/dL Albumin/Globulin Ratio 0.7 (1.0-2.7) L 0.7 (1.0-2.7) L Lipase 496 U/L (73-393) H 268 U/L (73-393) Urine Color Pale yellow Urine Appearance Clear Urine pH 7 (4.5-8.0) Urine Specific [place] 1.005 (1.005-1.035) Urine Protein Negative (NEGATIVE) Urine Glucose (UA) Negative (NEGATIVE) Urine Ketones Negative (NEGATIVE) Urine Blood 1+ (NEGATIVE) H Urine Nitrite Negative (NEGATIVE) Urine Bilirubin Negative (NEGATIVE) Urine Urobilinogen Normal MG/DL (0.0-1.0) Urine Leukocyte Esterase 1+ (NEGATIVE) H Urine RBC 0-2 /HPF (0 - 2) Urine WBC 2-4 /HPF (0 - 2) Urine Squamous Epithelial Cells Few /LPF (NONE/OCC) Urine Bacteria Few /HPF (NONE) Urine Fine Granular Casts 0-2 /LPF (NONE) H Differential Total Cells Counted 100 Neutrophils % (Manual) 81 % (45-75) H Lymphocytes % (Manual) 14 % (20-45) L Monocytes % (Manual) 4 % (1-10) Eosinophils % (Manual) 1 % (0-3) Basophils % (Manual) 0 % (0-2) Band Neutrophils 0 % (0-8) Platelet Estimate Decreased L Platelet Morphology Normal Hypochromasia 1+ Anisocytosis 1+ Hemoglobin A1c 7.6 % (4.3-6.0) H Amylase Level 98 U/L (25-115) Thyroid Stimulating Hormone (TSH) 1.120 uiU/mL (0.358-3.740) Height (Feet): 5 Height (Inches): 2.00 Weight (Pounds): 102 Medications Current Medications Medications (Trade) Dose Ordered Sig/Grisel Route PRN Reason Start Time Stop Time Status Last Admin Dose Admin Acetaminophen (Tylenol) 650 mg Q4H PRN ORAL fever 08/08/19 17:30 09/07/19 17:29 Dextrose (Dextrose 50%) 25 ml Q30M PRN IV Hypoglycemia 08/08/19 17:30 09/07/19 17:29 Dextrose (Dextrose 50%) 50 ml Q30M PRN IV Hypoglycemia 08/08/19 17:30 09/07/19 17:29 Digoxin (Lanoxin) 0.125 mg DAILY ORAL 08/09/19 09:00 09/08/19 08:59 08/09/19 08:17 Diphenhydramine HCl (Benadryl) 25 mg Q6H PRN ORAL Itching/Pruritis 08/08/19 17:30 09/07/19 17:29 Insulin Aspart (NovoLOG) BEFORE MEALS AND HS SUBQ 08/08/19 21:00 09/07/19 20:59 Iohexol (OMNIPAQUE-300 100ml) 100 ml NOW PRN INJ Radiology Procedure 08/08/19 15:30 08/10/19 15:22 Metoprolol Tartrate (Lopressor) 50 mg EVERY 12 HOURS ORAL 08/08/19 21:00 09/07/19 20:59 08/08/19 22:06 Morphine Sulfate (Morphine Sulfate) 2 mg Q4H PRN IVP severe Pain (Pain Scale 7-10) 08/08/19 17:30 08/15/19 17:29 08/08/19 23:17 Nitroglycerin (Ntg) 0.4 mg Q5M X 3 DOSES PRN SL Prn Chest Pain 08/08/19 17:30 09/07/19 17:29 Ondansetron HCl (Zofran) 4 mg Q6H PRN IVP Nausea & Vomiting 08/08/19 17:30 09/07/19 17:29 Polyethylene Glycol (Miralax) 17 gm HSPRN PRN ORAL Constipation 08/08/19 21:00 09/07/19 20:59 Sodium Chloride 1,000 ml @ 75 mls/hr [id number] IV 08/08/19 19:00 09/07/19 18:59 08/09/19 08:29 Temazepam (Restoril) 15 mg HSPRN PRN ORAL Insomnia 08/08/19 21:00 08/15/19 20:59 Assessment/Plan Problem List: (1) Intra abdominal hemorrhage ICD Codes: R58 - Hemorrhage, not elsewhere classified SNOMED: 297296111 (2) Coagulopathy ICD Codes: D68.9 - Coagulation defect, unspecified SNOMED: 75842237 (3) Acute renal failure ICD Codes: N17.9 - Acute kidney failure, unspecified SNOMED: 46288746 (4) Atrial fibrillation ICD Codes: I48.91 - Unspecified atrial fibrillation SNOMED: 74501391 (5) HTN (hypertension) ICD Codes: I10 - Essential (primary) hypertension SNOMED: 69880268 (6) Abdominal pain ICD Codes: R10.9 - Unspecified abdominal pain SNOMED: 42951637 (7) Aortic valve replaced ICD Codes: Z95.2 - Presence of prosthetic heart valve SNOMED: 49082669, 514684588, 288365265, [id number] (8) Pacemaker ICD Codes: Z95.0 - Presence of cardiac pacemaker SNOMED: 663862501 (9) Status post mitral valve replacement ICD Codes: Z95.2 - Presence of prosthetic heart valve SNOMED: 385470397, 48195122, 932741414, 291372011 (10) Cerebral vascular disease ICD Codes: I67.9 - Cerebrovascular disease, unspecified SNOMED: 87555547 (11) Diabetes mellitus ICD Codes: E11.9 - Type 2 diabetes mellitus without complications SNOMED: 28958481 (12) Chronic anticoagulation ICD Codes: Z79.01 - jail (current) use of anticoagulants SNOMED: 438637150 Assessment/Plan: symptomatic treatment hold coumadin and later start at lower dose. sliding scale and diabetic diet iv fluids check electrolytes renal work up. Remedios Albarran MD Aug 09, 2019 11:58
[2019-08-09 12:05] LABS: CREATINE KINASE 26 U/L (26-308)
--- NOTE | 2019-08-09 12:36 | Diagnostic Imaging Report ---
Indication: Abdominal pain Technique: Avery-scale and duplex images of the upper abdomen were obtained Comparison: No comparison abdominal sonograms. Reference made to CT scan dated 08/08/2019, renal sonogram 09/20/2016 Findings: Gallbladder is unremarkable, without stones, wall thickening, nor pericholecystic fluid. Sonographic Bush's sign is negative. Common bile duct measures 4 mm in diameter. No intrahepatic biliary ductal dilatation. Liver demonstrates coarsened echogenicity. No focal abnormality. Portal vein and hepatic veins are patent. Pancreas is unremarkable. Spleen is unremarkable. Left kidney measures 9.5 cm in length. Right kidney measures 9.3 cm length. Both kidneys demonstrate slightly increased echogenicity. There is no hydronephrosis. Left kidney demonstrates a small cyst. . Non-aneurysmal abdominal aorta . The inferior vena cava and hepatic veins are dilated. There is a small amount of free intraperitoneal fluid surrounding the liver Impression: Negative for gallstones or dilated bile duct Small amount of ascites fluid noted Coarsened hepatic echogenicity, consistent with hepatocellular disease, nonspecific as regards etiology Mildly increased renal echogenicity, consistent with medical renal disease Dilated inferior vena cava and hepatic veins, consistent with central venous hypertension Incidental finding small left renal cyst
--- NOTE | 2019-08-09 13:06 | Cardiology Report ---
APPROVED REPORT EKG Measurement Heart [id number] [place] 264P [id number] Sinus rhythm with v pacing
--- NOTE | 2019-08-09 14:07 | NUR ---
CASE MANAGEMENT: INITIAL REVIEW 73 YR OLD FEMALE FROM HOME CC: ABD PAIN SI: HTN /PELVIC HEMOPERITONEUM / AFIB WITH RVR 97.5 85 17 99/56 99% ON RA RBC 3.07 H/H 8.9/27.0 BUN 44 CREAT 1.6 BG 146 LIPASE 469 IS: AMPARO K SQ X1 IV MORPHINE SULFATE X1 IV ZOFRAN X1 2E TELE UNIT DCP: HOME WHEN MEDICALLY CLEARED PLAN: CXR CT ABD/PEL US ABD CT SHOWS SPONTANEOUS HEMORRHAGE Severe cardiomyopathy with biatrial chamber enlargement
--- NOTE | 2019-08-09 14:15 | Surgery Progress Note ---
Surgery Progress Note Subjective Additional Comments Patient seen examined bedside. States that her pain is resolved. No nausea vomiting fever chills. Not had a bowel movement since admission. Labs noted still with anemia hemoglobin down today but likely from resuscitation. INR 1.7. Objective Last 24 Hour Vital Signs Date Time Temp Pulse Resp B/P (MAP) Pulse Ox O2 Delivery O2 Flow Rate FiO2 08/09/19 11:35 98.4 78 18 103/42 (62) 98 08/09/19 08:17 78 08/09/19 08:08 78 96/44 08/09/19 08:07 98.4 78 18 96/44 (61) 98 08/09/19 07:59 77 08/09/19 04:00 85 08/09/19 00:00 98.4 74 18 110/55 (73) 98 08/09/19 00:00 77 08/08/19 23:01 Room Air 08/08/19 22:06 76 114/51 08/08/19 19:48 82 08/08/19 19:48 98.4 76 18 114/51 (72) 98 08/08/19 19:40 98.2 89 23 113/49 97 Room Air 08/08/19 19:29 98.2 85 23 08/08/19 19:22 98.0 86 25 08/08/19 19:20 98.2 87 22 08/08/19 19:09 98.2 86 16 08/08/19 17:30 97.0 89 24 99/48 97 Room Air 08/08/19 16:43 97.5 08/08/19 15:01 97.3 88 22 98/52 98 Room Air 08/08/19 15:01 88 22 Room Air 08/08/19 14:42 97.5 85 17 99/56 (70) 97 Room Air I&O Intake and Output 08/08/19 08/09/19 18:59 06:59 Intake Total 0 ml 0 ml Balance 0 ml 0 ml Intake Oral 0 ml 0 ml # Voids 3 # Bowel Movements 1 Dressing: other Wound: other Drains: other Cardiovascular: RSR Respiratory: decreased breath sounds Abdomen: soft, non-tender, present bowel sounds, non-distended Extremities: no edema, no tenderness, no cyanosis Laboratory Tests Test 08/08/19 15:23 08/08/19 15:31 08/09/19 07:05 White Blood Count 7.6 K/UL (4.8-10.8) 6.7 K/UL (4.8-10.8) Red Blood Count 3.07 M/UL (4.20-5.40) L 2.62 M/UL (4.20-5.40) L Hemoglobin 8.9 G/DL (12.0-16.0) L 7.4 G/DL (12.0-16.0) L Hematocrit 27.0 % (37.0-47.0) L 23.6 % (37.0-47.0) L Mean Corpuscular Volume 88 FL (80-99) 90 FL (80-99) Mean Corpuscular Hemoglobin 29.0 PG (27.0-31.0) 28.3 PG (27.0-31.0) Mean Corpuscular Hemoglobin Concent 33.0 G/DL (32.0-36.0) 31.4 G/DL (32.0-36.0) L Red Cell Distribution Width 16.3 % (11.6-14.8) H 16.7 % (11.6-14.8) H Platelet Count 160 K/UL (150-450) 126 K/UL (150-450) L Mean Platelet Volume 6.9 FL (6.5-10.1) 6.6 FL (6.5-10.1) Neutrophils (%) (Auto) 72.4 % (45.0-75.0) % (45.0-75.0) Lymphocytes (%) (Auto) 15.3 % (20.0-45.0) L % (20.0-45.0) Monocytes (%) (Auto) 10.0 % (1.0-10.0) % (1.0-10.0) Eosinophils (%) (Auto) 1.5 % (0.0-3.0) % (0.0-3.0) Basophils (%) (Auto) 0.8 % (0.0-2.0) % (0.0-2.0) Prothrombin Time 30.1 SEC (9.30-11.50) H 17.8 SEC (9.30-11.50) H Prothromb Time International Ratio 3.0 (0.9-1.1) H 1.7 (0.9-1.1) H Activated Partial Thromboplast Time 44 SEC (23-33) H 41 SEC (23-33) H Sodium Level 137 MMOL/L (136-145) 137 MMOL/L (136-145) Potassium Level 4.8 MMOL/L (3.5-5.1) 5.3 MMOL/L (3.5-5.1) H Chloride Level 101 MMOL/L (98-107) 103 MMOL/L (98-107) Carbon Dioxide Level 30 MMOL/L (21-32) 35 MMOL/L (21-32) H Anion Gap 6 mmol/L (5-15) -1 mmol/L (5-15) L Blood Urea Nitrogen 44 mg/dL (7-18) H 46 mg/dL (7-18) H Creatinine 1.6 MG/DL (0.55-1.30) H 1.8 MG/DL (0.55-1.30) H Estimat Glomerular Filtration Rate mL/min (>60) mL/min (>60) Glucose Level 146 MG/DL (74-106) H 135 MG/DL (74-106) H Calcium Level 9.2 MG/DL (8.5-10.1) 8.5 MG/DL (8.5-10.1) Total Bilirubin 0.9 MG/DL (0.2-1.0) 1.0 MG/DL (0.2-1.0) Aspartate Amino Transf (AST/SGOT) 24 U/L (15-37) 22 U/L (15-37) Alanine Aminotransferase (ALT/SGPT) 18 U/L (12-78) 17 U/L (12-78) Alkaline Phosphatase 181 U/L (46-116) H 154 U/L (46-116) H Troponin I 0.037 ng/mL (0.000-0.056) Total Protein 8.0 G/DL (6.4-8.2) 7.4 G/DL (6.4-8.2) Albumin 3.3 G/DL (3.4-5.0) L 3.1 G/DL (3.4-5.0) L Globulin 4.7 g/dL 4.3 g/dL Albumin/Globulin Ratio 0.7 (1.0-2.7) L 0.7 (1.0-2.7) L Lipase 496 U/L (73-393) H 268 U/L (73-393) Urine Color Pale yellow Urine Appearance Clear Urine pH 7 (4.5-8.0) Urine Specific [place] 1.005 (1.005-1.035) Urine Protein Negative (NEGATIVE) Urine Glucose (UA) Negative (NEGATIVE) Urine Ketones Negative (NEGATIVE) Urine Blood 1+ (NEGATIVE) H Urine Nitrite Negative (NEGATIVE) Urine Bilirubin Negative (NEGATIVE) Urine Urobilinogen Normal MG/DL (0.0-1.0) Urine Leukocyte Esterase 1+ (NEGATIVE) H Urine RBC 0-2 /HPF (0 - 2) Urine WBC 2-4 /HPF (0 - 2) Urine Squamous Epithelial Cells Few /LPF (NONE/OCC) Urine Bacteria Few /HPF (NONE) Urine Fine Granular Casts 0-2 /LPF (NONE) H Differential Total Cells Counted 100 Neutrophils % (Manual) 81 % (45-75) H Lymphocytes % (Manual) 14 % (20-45) L Monocytes % (Manual) 4 % (1-10) Eosinophils % (Manual) 1 % (0-3) Basophils % (Manual) 0 % (0-2) Band Neutrophils 0 % (0-8) Platelet Estimate Decreased L Platelet Morphology Normal Hypochromasia 1+ Anisocytosis 1+ Hemoglobin A1c 7.6 % (4.3-6.0) H Uric Acid 9.3 MG/DL (2.6-7.2) H Total Creatine Kinase 26 U/L (26-308) Amylase Level 98 U/L (25-115) Thyroid Stimulating Hormone (TSH) 1.120 uiU/mL (0.358-3.740) Plan Problems: (1) Abdominal pain Assessment & Plan: 73-year-old female with abdominal pain likely due to intra- abdominal hemorrhage from coagulopathy. No trauma. H&H stable. Exam with mild tenderness but no peritonitis. No acute surgical invention recommend at this time Trend H&H We will follow with serial abdominal exams Reverse coagulopathy-appropriate now Vitamin K and FFP as needed Okay to start clear liquids Cardiology consultation Nephrology consultation worsening renal insufficiency IV fluids We will follow with recommendations Thank you for let me participate in patient's care (2) Intra abdominal hemorrhage Assessment & Plan: There is a severe cardiomegaly with biatrial chamber enlargement. 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 Pacemaker is present. There is a hiatal hernia. The lung bases are clear. The IVC and hepatic veins are markedly enlarged. There are generalized reticular densities throughout the mesentery and omentum nonspecific. There is some free fluid within the pelvis especially in the area of the cul-de-sac posterior to the uterus. The fluid has a areas of increased density, suspicious for blood. The nature of the hemoperitoneum is not known and the clinical correlation is needed. There are no signs of trauma or any history of such. There is a hypodensity within the left hemipelvis measuring about 1.7 cm which could be an ovarian cyst. Consider rupture of an ovarian cyst or mass is certainly possible. There may be 1 cm focus of fat (image #[id number]/series [id number]) in association with the left ovary and adjacent to the cystic focus suggesting the possibility of an ovarian dermoid. There is a calcified fibroid within the uterus measuring 1.6 cm. IMPRESSION: Pelvic hemoperitoneum with moderate organized clot in the cul-de-sac. Nature of this is not known but consider possibility of a ruptured ovarian cyst and/or mass. Question of an ovarian dermoid on the left side. Differential includes trauma, iatrogenic causes from recent surgery/procedures, coagulopathies, antiocoagulation Rx or other causes of hemoperitoneum. Calcified uterine fibroid. Severe cardiomyopathy with biatrial chamber enlargement. Distended IVC and hepatic veins probably on the basis of tricuspid regurgitation or right heart failure. Atherosclerotic vascular disease. Pacemaker. Hiatal hernia. Mesenteric nodularity and reticulation may be on the basis of ascites/ hemoperitoneum described earlier. Iain Soria Aug 09, 2019 14:15
[2019-08-09 15:17] LABS: FERRITIN 65 NG/ML (8-388)
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
[2019-08-09 15:28] LABS: % IRON SATURATION 14 % (15-50); IRON 46 ug/dL (50-175); TOTAL IRON BINDING CAPACITY 319 ug/dL (250-450)
[2019-08-09 15:35] VITALS: BP 102/40
[2019-08-09] MEDS ORDERED: Docusate 100mg cap ORAL SCH (18:00)
--- NOTE | 2019-08-09 18:04 | Internal Med Progress Note ---
Subjective Date of Service: Aug 09, 2019 Physician Name Sher Hansen Attending Physician Kobi Real MD Current Medications Medications (Trade) Dose Ordered Sig/Grisel Route PRN Reason Start Time Stop Time Status Last Admin Dose Admin Acetaminophen (Tylenol) 650 mg Q4H PRN ORAL fever 08/08/19 17:30 09/07/19 17:29 Dextrose (Dextrose 50%) 25 ml Q30M PRN IV Hypoglycemia 08/08/19 17:30 09/07/19 17:29 Dextrose (Dextrose 50%) 50 ml Q30M PRN IV Hypoglycemia 08/08/19 17:30 09/07/19 17:29 Digoxin (Lanoxin) 0.125 mg DAILY ORAL 08/09/19 09:00 09/08/19 08:59 08/09/19 08:17 Docusate Sodium (Colace) 100 mg TWICE A DAY ORAL 08/09/19 18:00 09/08/19 17:59 08/09/19 17:13 Insulin Aspart (NovoLOG) BEFORE MEALS AND HS SUBQ 08/08/19 21:00 09/07/19 20:59 08/09/19 16:26 Iohexol (OMNIPAQUE-300 100ml) 100 ml NOW PRN INJ Radiology Procedure 08/08/19 15:30 08/10/19 15:22 Metoprolol Tartrate (Lopressor) 50 mg EVERY 12 HOURS ORAL 08/08/19 21:00 09/07/19 20:59 08/08/19 22:06 Morphine Sulfate (Morphine Sulfate) 2 mg Q4H PRN IVP severe Pain (Pain Scale 7-10) 08/08/19 17:30 08/15/19 17:29 08/08/19 23:17 Nitroglycerin (Ntg) 0.4 mg Q5M X 3 DOSES PRN SL Prn Chest Pain 08/08/19 17:30 09/07/19 17:29 Ondansetron HCl (Zofran) 4 mg Q6H PRN IVP Nausea & Vomiting 08/08/19 17:30 09/07/19 17:29 Pantoprazole (Protonix) 40 mg BID ORAL 08/09/19 18:00 09/08/19 17:59 08/09/19 17:13 Polyethylene Glycol (Miralax) 17 gm HSPRN PRN ORAL Constipation 08/08/19 21:00 09/07/19 20:59 Sodium Chloride 1,000 ml @ 75 mls/hr [id number] IV 08/08/19 19:00 09/07/19 18:59 08/09/19 08:29 Temazepam (Restoril) 15 mg HSPRN PRN ORAL Insomnia 08/08/19 21:00 08/15/19 20:59 Allergies: Coded Allergies: No Known Allergies (Unverified , 09/17/16) ROS Limited/Unobtainable: No Constitutional: Reports: no symptoms HEENT: Reports: no symptoms Cardiovascular: Reports: no symptoms Respiratory: Reports: no symptoms Gastrointestinal/Abdominal: Reports: abdominal pain Genitourinary: Reports: no symptoms Neurologic/Psychiatric: Reports: no symptoms Subjective 73 YO F admitted with abdominal pain. Now pelvic hemoperitoneum. Cover for Int Sunny-Dr Real Objective Last Vital Signs Date Time Temp Pulse Resp B/P (MAP) Pulse Ox O2 Delivery O2 Flow Rate FiO2 08/09/19 15:56 76 08/09/19 15:35 98.6 18 102/40 (60) 98 08/09/19 09:00 Room Air General Appearance: WD/WN, no apparent distress, alert EENT: PERRL/EOMI, normal ENT inspection Neck: non-tender, normal alignment, supple, normal inspection Cardiovascular: normal peripheral pulses, normal rate, regular rhythm, no gallop/murmur, no JVD Respiratory/Chest: chest wall non-tender, lungs clear, normal breath sounds, no respiratory distress, no accessory muscle use Abdomen: normal bowel sounds, decreased bowel sounds, guarding, tender Extremities: normal range of motion, non-tender Neurologic: sole scraper II-XII 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, no motor/sensory deficits Skin: normal pigmentation, warm/dry Laboratory Tests Test 08/09/19 07:05 White Blood Count 6.7 K/UL (4.8-10.8) Red Blood Count 2.62 M/UL (4.20-5.40) L Hemoglobin 7.4 G/DL (12.0-16.0) L Hematocrit 23.6 % (37.0-47.0) L Mean Corpuscular Volume 90 FL (80-99) Mean Corpuscular Hemoglobin 28.3 PG (27.0-31.0) Mean Corpuscular Hemoglobin Concent 31.4 G/DL (32.0-36.0) L Red Cell Distribution Width 16.7 % (11.6-14.8) H Platelet Count 126 K/UL (150-450) L Mean Platelet Volume 6.6 FL (6.5-10.1) Neutrophils (%) (Auto) % (45.0-75.0) Lymphocytes (%) (Auto) % (20.0-45.0) Monocytes (%) (Auto) % (1.0-10.0) Eosinophils (%) (Auto) % (0.0-3.0) Basophils (%) (Auto) % (0.0-2.0) Differential Total Cells Counted 100 Neutrophils % (Manual) 81 % (45-75) H Lymphocytes % (Manual) 14 % (20-45) L Monocytes % (Manual) 4 % (1-10) Eosinophils % (Manual) 1 % (0-3) Basophils % (Manual) 0 % (0-2) Band Neutrophils 0 % (0-8) Platelet Estimate Decreased L Platelet Morphology Normal Hypochromasia 1+ Anisocytosis 1+ Prothrombin Time 17.8 SEC (9.30-11.50) H Prothromb Time International Ratio 1.7 (0.9-1.1) H Activated Partial Thromboplast Time 41 SEC (23-33) H Sodium Level 137 MMOL/L (136-145) Potassium Level 5.3 MMOL/L (3.5-5.1) H Chloride Level 103 MMOL/L (98-107) Carbon Dioxide Level 35 MMOL/L (21-32) H Anion Gap -1 mmol/L (5-15) L Blood Urea Nitrogen 46 mg/dL (7-18) H Creatinine 1.8 MG/DL (0.55-1.30) H Estimat Glomerular Filtration Rate mL/min (>60) Glucose Level 135 MG/DL (74-106) H Hemoglobin A1c 7.6 % (4.3-6.0) H Uric Acid 9.3 MG/DL (2.6-7.2) H Calcium Level 8.5 MG/DL (8.5-10.1) Iron Level 46 ug/dL (50-175) L Total Iron Binding Capacity 319 ug/dL (250-450) Percent Iron Saturation 14 % (15-50) L Unsaturated Iron Binding 273 ug/dL (112-346) Ferritin 65 NG/ML (8-388) Total Bilirubin 1.0 MG/DL (0.2-1.0) Aspartate Amino Transf (AST/SGOT) 22 U/L (15-37) Alanine Aminotransferase (ALT/SGPT) 17 U/L (12-78) Alkaline Phosphatase 154 U/L (46-116) H Total Creatine Kinase 26 U/L (26-308) Total Protein 7.4 G/DL (6.4-8.2) Albumin 3.1 G/DL (3.4-5.0) L Globulin 4.3 g/dL Albumin/Globulin Ratio 0.7 (1.0-2.7) L Amylase Level 98 U/L (25-115) Lipase 268 U/L (73-393) Vitamin B12 Level 442 PG/ML (193-986) Folate 7.5 NG/ML (8.6-58.9) L Thyroid Stimulating Hormone (TSH) 1.120 uiU/mL (0.358-3.740) Intake and Output 08/08/19 08/09/19 19:00 07:00 Intake Total 0 ml 0 ml Balance 0 ml 0 ml Intake Oral 0 ml 0 ml # Voids 3 # Bowel Movements 1 Assessment/Plan Problem List: (1) Type II diabetes mellitus Assessment & Plan: continue novolog sliding scale. (2) Hemoperitoneum, nontraumatic Assessment & Plan: Due to coagulopathy due to coumadin. Hold coumadin. Follow hemoglobin. Non surgical-see surgery note=Dr Soria. (3) Epigastric pain (4) Nausea Assessment & Plan: tolerating clear liquid diet-see GI note=Dr Pimentel (5) HTN (hypertension) (6) Atrial fibrillation Assessment & Plan: continue digoxin (7) Coagulopathy Assessment & Plan: Hold coumadin secondary to hemoperitoneum. (8) Cerebral vascular disease (9) Pacemaker Assessment & Plan: EP Cardiology=Dr Carmona (10) Status post mitral valve replacement Status: not improved Sher Hansen MD Aug 09, 2019 18:03
[2019-08-09 18:49] LABS: BASOPHILS % (AUTO) 0.7 % (0.0-2.0); HEMATOCRIT 25.2 % (37.0-47.0); HEMOGLOBIN 8.5 G/DL (12.0-16.0); LYMPHOCYTES % (AUTO) 14.5 % (20.0-45.0); MEAN CORPUSCULAR VOLUME 87 FL (80-99); MONOCYTES % (AUTO) 8.5 % (1.0-10.0); NEUTROPHILS % (AUTO) 75.4 % (45.0-75.0); PLATELET COUNT 110 K/UL (150-450); RED BLOOD COUNT 2.88 M/UL (4.20-5.40); RED CELL DISTRIBUTION WIDTH 14.5 % (11.6-14.8); WHITE BLOOD COUNT 6.5 K/UL (4.8-10.8)
--- NOTE | 2019-08-09 19:05 | NUR ---
NURSE NOTES: Received report from Sam. Pt resting in bed. resp even. no c/o noted. updated pt's board. call light provided.
--- NOTE | 2019-08-09 19:09 | NUR ---
HAND-OFF: Report given to MERLIN TREVINO.
[2019-08-09 20:00] VITALS: BP 119/56
[2019-08-10] VITALS: BP 103/51
[2019-08-10 04:00] VITALS: BP 103/55
[2019-08-10 06:32] LABS: APPEARANCE,URINE CLEAR; BILIRUBIN, URINE NEGATIVE (NEGATIVE); GLUCOSE, URINE (UA) NEGATIVE (NEGATIVE); KETONES,URINE NEGATIVE (NEGATIVE); LEUKOCYTE ESTERASE ,URINE NEGATIVE (NEGATIVE); NITRITE,URINE NEGATIVE (NEGATIVE); PH,URINE 5 (4.5-8.0); PROTEIN,URINE NEGATIVE (NEGATIVE); UROBILINOGEN,URINE 1 MG/DL (0.0-1.0)
[2019-08-10 06:34] LABS: COLOR,URINE YELLOW
[2019-08-10] MEDS: NovoLOG Insulin Flexpen SUBQ SCH ×4 (06:34→21:57)
--- NOTE | 2019-08-10 07:05 | NUR ---
HAND-OFF: Report given to BELINDA Murillo.
[2019-08-10 08:00] VITALS: BP 118/63
--- NOTE | 2019-08-10 08:09 | NUR ---
NURSE NOTES: Received patient from Hanane Ruiz. Patient is awake in bed. No complain of pain or discomfort at this time. fall precautions in place. call haines within reach. will follow.
[2019-08-10 08:16] LABS: HEMATOCRIT 27.5 % (37.0-47.0); HEMOGLOBIN 8.8 G/DL (12.0-16.0); MEAN CORPUSCULAR VOLUME 90 FL (80-99); PLATELET COUNT 118 K/UL (150-450); RED BLOOD COUNT 3.05 M/UL (4.20-5.40); RED CELL DISTRIBUTION WIDTH 16.5 % (11.6-14.8); WHITE BLOOD COUNT 6.6 K/UL (4.8-10.8)
[2019-08-10 08:29] LABS: INR 1.2 (0.9-1.1)
[2019-08-10 08:37] LABS: PHOSPHORUS 3.5 MG/DL (2.5-4.9)
[2019-08-10 08:51] LABS: CREATINE KINASE 29 U/L (26-308); GAMMA GLUTAMYL TRANSPEPTIDASE 169 U/L (5-85)
[2019-08-10 08:52] LABS: ALANINE AMINOTRANSFERASE 16 U/L (12-78); ALBUMIN 3.1 G/DL (3.4-5.0); ALBUMIN/GLOBULIN RATIO 0.7 (1.0-2.7); ALKALINE PHOSPHATASE 165 U/L (46-116); ANION GAP 7 mmol/L (5-15); ASPARTATE AMINO TRANSFERASE 24 U/L (15-37); BILIRUBIN,TOTAL 1.2 MG/DL (0.2-1.0); BLOOD UREA NITROGEN 36 mg/dL (7-18); CALCIUM 8.2 MG/DL (8.5-10.1); CARBON DIOXIDE 28 MMOL/L (21-32); CHLORIDE 106 MMOL/L (98-107); CHOLESTEROL 141 MG/DL (< 200); CREATININE 1.5 MG/DL (0.55-1.30); HDL CHOLESTEROL 40 MG/DL (40-60); POTASSIUM 4.9 MMOL/L (3.5-5.1); SODIUM 141 MMOL/L (136-145); TRIGLYCERIDES 121 MG/DL (30-150)
[2019-08-10 08:55] LABS: BILIRUBIN,DIRECT 0.4 MG/DL (0.0-0.3)
--- NOTE | 2019-08-10 09:59 | Nephrology Progress Note ---
Assessment/Plan Problem List: (1) Acute renal failure (2) Diabetic nephropathy (3) Diabetes mellitus (4) HTN (hypertension) (5) Pacemaker Assessment Renal failure ? Acute on chronic Pelvic hemoperitoneum. Epigastric pain. Nausea. Hypertension. Diabetes type 2. Atrial fibrillation. Hypercholesterolemia. Cerebrovascular disease. 1990 Plan folic acid cytomel Slow Hydrate Anemia avila- transfusedf monitor renal parameters 2D echo Pending Kidney [facility] medical Renal disease Subjective ROS Limited/Unobtainable: No Constitutional: Reports: malaise Objective Objective Last 24 Hour Vital Signs Date Time Temp Pulse Resp B/P (MAP) Pulse Ox O2 Delivery O2 Flow Rate FiO2 08/10/19 08:00 98.1 71 18 118/63 (81) 95 08/10/19 04:00 97.7 80 16 103/55 (71) 98 08/10/19 04:00 87 08/10/19 00:00 98.6 76 18 103/51 (68) 98 08/10/19 00:00 76 08/09/19 21:31 85 119/56 08/09/19 21:00 Room Air 08/09/19 20:00 85 08/09/19 20:00 98.4 85 18 119/56 (77) 96 08/09/19 15:56 76 08/09/19 15:35 98.6 80 18 102/40 (60) 98 08/09/19 11:43 89 08/09/19 11:35 98.4 78 18 103/42 (62) 98 Intake and Output 08/09/19 08/10/19 19:00 07:00 Intake Total 990 ml 825 ml Balance 990 ml 825 ml Intake Oral 240 ml IV Total 750 ml 825 ml # Voids 3 3 # Bowel Movements 1 1 Laboratory Tests 08/09/19 18:15: White Blood Count 6.5, Red Blood Count 2.88L, Hemoglobin 8.5L, Hematocrit 25.2L , Mean Corpuscular Volume 87, Mean Corpuscular Hemoglobin 29.4, Mean Corpuscular Hemoglobin Concent 33.7, Red Cell Distribution Width 14.5, Platelet Count 110L, Mean Platelet Volume 6.5, Neutrophils (%) (Auto) 75.4H, Lymphocytes (%) (Auto) 14.5L, Monocytes (%) (Auto) 8.5, Eosinophils (%) (Auto) 1.0, Basophils (%) (Auto) 0.7 08/10/19 02:55: Urine Color Yellow, Urine Appearance Clear, Urine pH 5, Urine Specific [place] 1.015, Urine Protein Negative, Urine Glucose (UA) Negative, Urine Ketones Negative, Urine Blood 1+H, Urine Nitrite Negative, Urine Bilirubin Negative, Urine Urobilinogen 1H, Urine Leukocyte Esterase Negative, Urine RBC 0-2, Urine WBC 0, Urine Squamous Epithelial Cells Few, Urine Bacteria None, Urine Eosinophils None seen, Urine Random Sodium < 20L 08/10/19 07:30: White Blood Count 6.6, Red Blood Count 3.05L, Hemoglobin 8.8L, Hematocrit 27.5L , Mean Corpuscular Volume 90, Mean Corpuscular Hemoglobin 28.9, Mean Corpuscular Hemoglobin Concent 32.0, Red Cell Distribution Width 16.5H, Platelet Count 118L, Mean Platelet Volume 7.7, Neutrophils (%) (Auto) , Lymphocytes (%) (Auto) , Monocytes (%) (Auto) , Eosinophils (%) (Auto) , Basophils (%) (Auto) , Neutrophils % (Manual) [Pending], Lymphocytes % (Manual) [Pending], Platelet Estimate [Pending], Platelet Morphology [Pending], Erythrocyte Sedimentation Rate 74H, Reticulocyte Count [Pending], Prothrombin Time 12.3H, Prothromb Time International Ratio 1.2H, Activated Partial Thromboplast Time 36H, Sodium Level 141, Potassium Level 4.9, Chloride Level 106 , Carbon Dioxide Level 28, Anion Gap 7, Blood Urea Nitrogen 36H, Creatinine 1.5H , Estimat Glomerular Filtration Rate , Glucose Level 131H, Hemoglobin A1c 7.4H, Uric Acid 8.8H, Calcium Level 8.2L, Phosphorus Level 3.5, Magnesium Level 2.3, Total Bilirubin 1.2H, Direct Bilirubin 0.4H, Gamma Glutamyl Transpeptidase 169H , Aspartate Amino Transf (AST/SGOT) 24, Alanine Aminotransferase (ALT/SGPT) 16, Alkaline Phosphatase 165H, Lactate Dehydrogenase 308H, Total Creatine Kinase 29 , C-Reactive Protein, Quantitative 3.0H, Pro-B-Type Natriuretic Peptide 2352H, Total Protein 7.6, Albumin 3.1L, Globulin 4.5, Albumin/Globulin Ratio 0.7L, Triglycerides Level 121, Cholesterol Level 141, LDL Cholesterol 79, HDL Cholesterol 40, Cholesterol/HDL Ratio 3.5, Lipase 244, Carcinoembryonic Antigen [Pending], Free Thyroxine 1.14, Free Triiodothyronine 1.5L, Digoxin Level 2.0 Height (Feet): 5 Height (Inches): 2.00 Weight (Pounds): 111 General Appearance: no apparent distress Cardiovascular: normal rate Respiratory/Chest: decreased breath sounds Abdomen: soft Kirby Rivera MD Aug 10, 2019 09:59
--- NOTE | 2019-08-10 10:01 | Diagnostic Imaging Report ---
Indication:Elevated Bun and Creatinine. Technique: Grayscale and duplex Doppler imaging of the kidneys performed. Comparison: None Findings: The size, contour, and echogenicity of both kidneys are within normal limits. There is a scar in the upper pole the right kidney. There is no hydronephrosis.. The right kidney measures 8.9 cm cm. in length. The left kidney measures 9.2 cm. in length. There is a small left renal cyst. The IVC is patent. Urinary bladder is unremarkable. IMPRESSION: No evidence of obstructive nephropathy. Left renal cyst. Scarring in the upper pole right kidney
[2019-08-10] MEDS: Metoprolol Tartrate 50mg tab ORAL SCH (10:08)
--- NOTE | 2019-08-10 10:56 | Internal Med Progress Note ---
Subjective Date of Service: Aug 10, 2019 Physician Name Sher Hansen Attending Physician Kobi Real MD Current Medications Medications (Trade) Dose Ordered Sig/Grisel Route PRN Reason Start Time Stop Time Status Last Admin Dose Admin Acetaminophen (Tylenol) 650 mg Q4H PRN ORAL fever 08/08/19 17:30 09/07/19 17:29 Allopurinol (Allopurinol) 300 mg DAILY ORAL 08/10/19 10:00 09/09/19 09:59 08/10/19 10:12 Dextrose (Dextrose 50%) 25 ml Q30M PRN IV Hypoglycemia 08/08/19 17:30 09/07/19 17:29 Dextrose (Dextrose 50%) 50 ml Q30M PRN IV Hypoglycemia 08/08/19 17:30 09/07/19 17:29 Docusate Sodium (Colace) 100 mg TID ORAL 08/10/19 13:00 09/08/19 17:59 Folic Acid (Folate) 2 mg DAILY ORAL 08/10/19 10:15 09/09/19 10:14 08/10/19 10:42 Insulin Aspart (NovoLOG) BEFORE MEALS AND HS SUBQ 08/08/19 21:00 09/07/19 20:59 08/10/19 06:34 Iohexol (OMNIPAQUE-300 100ml) 100 ml NOW PRN INJ Radiology Procedure 08/08/19 15:30 08/10/19 15:22 Liothyronine Sodium (Cytomel) 5 mcg DAILY ORAL 08/11/19 09:00 09/10/19 08:59 Metoprolol Tartrate (Lopressor) 50 mg EVERY 12 HOURS ORAL 08/08/19 21:00 09/07/19 20:59 08/10/19 10:08 Morphine Sulfate (Morphine Sulfate) 2 mg Q4H PRN IVP severe Pain (Pain Scale 7-10) 08/08/19 17:30 08/15/19 17:29 08/08/19 23:17 Nitroglycerin (Ntg) 0.4 mg Q5M X 3 DOSES PRN SL Prn Chest Pain 08/08/19 17:30 09/07/19 17:29 Ondansetron HCl (Zofran) 4 mg Q6H PRN IVP Nausea & Vomiting 08/08/19 17:30 09/07/19 17:29 Pantoprazole (Protonix) 40 mg BID ORAL 08/09/19 18:00 09/08/19 17:59 08/10/19 10:08 Polyethylene Glycol (Miralax) 17 gm HSPRN PRN ORAL Constipation 08/08/19 21:00 09/07/19 20:59 Sodium Chloride 1,000 ml @ 50 mls/hr Q20H IV 08/10/19 19:00 09/07/19 18:59 Temazepam (Restoril) 15 mg HSPRN PRN ORAL Insomnia 08/08/19 21:00 08/15/19 20:59 Allergies: Coded Allergies: No Known Allergies (Unverified , 09/17/16) ROS Limited/Unobtainable: No Constitutional: Reports: no symptoms HEENT: Reports: no symptoms Cardiovascular: Reports: no symptoms Respiratory: Reports: no symptoms Gastrointestinal/Abdominal: Reports: abdominal pain Genitourinary: Reports: no symptoms Neurologic/Psychiatric: Reports: no symptoms Subjective 73 YO F admitted with abdominal pain. Now pelvic hemoperitoneum and CHF. Cover for Int Sunny-Dr Real Objective Last Vital Signs Date Time Temp Pulse Resp B/P (MAP) Pulse Ox O2 Delivery O2 Flow Rate FiO2 08/10/19 10:08 71 118/63 08/10/19 08:00 98.1 18 95 08/09/19 21:00 Room Air 08/09/19 09:00 Laboratory Tests Test 08/09/19 18:15 08/10/19 02:55 08/10/19 07:30 White Blood Count 6.5 K/UL (4.8-10.8) 6.6 K/UL (4.8-10.8) Red Blood Count 2.88 M/UL (4.20-5.40) L 3.05 M/UL (4.20-5.40) L Hemoglobin 8.5 G/DL (12.0-16.0) L 8.8 G/DL (12.0-16.0) L Hematocrit 25.2 % (37.0-47.0) L 27.5 % (37.0-47.0) L Mean Corpuscular Volume 87 FL (80-99) 90 FL (80-99) Mean Corpuscular Hemoglobin 29.4 PG (27.0-31.0) 28.9 PG (27.0-31.0) Mean Corpuscular Hemoglobin Concent 33.7 G/DL (32.0-36.0) 32.0 G/DL (32.0-36.0) Red Cell Distribution Width 14.5 % (11.6-14.8) 16.5 % (11.6-14.8) H Platelet Count 110 K/UL (150-450) L 118 K/UL (150-450) L Mean Platelet Volume 6.5 FL (6.5-10.1) 7.7 FL (6.5-10.1) Neutrophils (%) (Auto) 75.4 % (45.0-75.0) H % (45.0-75.0) Lymphocytes (%) (Auto) 14.5 % (20.0-45.0) L % (20.0-45.0) Monocytes (%) (Auto) 8.5 % (1.0-10.0) % (1.0-10.0) Eosinophils (%) (Auto) 1.0 % (0.0-3.0) % (0.0-3.0) Basophils (%) (Auto) 0.7 % (0.0-2.0) % (0.0-2.0) Urine Color Yellow Urine Appearance Clear Urine pH 5 (4.5-8.0) Urine Specific [place] 1.015 (1.005-1.035) Urine Protein Negative (NEGATIVE) Urine Glucose (UA) Negative (NEGATIVE) Urine Ketones Negative (NEGATIVE) Urine Blood 1+ (NEGATIVE) H Urine Nitrite Negative (NEGATIVE) Urine Bilirubin Negative (NEGATIVE) Urine Urobilinogen 1 MG/DL (0.0-1.0) H Urine Leukocyte Esterase Negative (NEGATIVE) Urine RBC 0-2 /HPF (0 - 2) Urine WBC 0 /HPF (0 - 2) Urine Squamous Epithelial Cells Few /LPF (NONE/OCC) Urine Bacteria None /HPF (NONE) Urine Eosinophils None seen (NONE SEEN) Urine Random Sodium < 20 mmol/L (20-110) L Neutrophils % (Manual) Pending Lymphocytes % (Manual) Pending Platelet Estimate Pending Platelet Morphology Pending Erythrocyte Sedimentation Rate 74 MM/HR (0-30) H Reticulocyte Count Pending Prothrombin Time 12.3 SEC (9.30-11.50) H Prothromb Time International Ratio 1.2 (0.9-1.1) H Activated Partial Thromboplast Time 36 SEC (23-33) H Sodium Level 141 MMOL/L (136-145) Potassium Level 4.9 MMOL/L (3.5-5.1) Chloride Level 106 MMOL/L (98-107) Carbon Dioxide Level 28 MMOL/L (21-32) Anion Gap 7 mmol/L (5-15) Blood Urea Nitrogen 36 mg/dL (7-18) H Creatinine 1.5 MG/DL (0.55-1.30) H Estimat Glomerular Filtration Rate mL/min (>60) Glucose Level 131 MG/DL (74-106) H Hemoglobin A1c 7.4 % (4.3-6.0) H Uric Acid 8.8 MG/DL (2.6-7.2) H Calcium Level 8.2 MG/DL (8.5-10.1) L Phosphorus Level 3.5 MG/DL (2.5-4.9) Magnesium Level 2.3 MG/DL (1.8-2.4) Total Bilirubin 1.2 MG/DL (0.2-1.0) H Direct Bilirubin 0.4 MG/DL (0.0-0.3) H Gamma Glutamyl Transpeptidase 169 U/L (5-85) H Aspartate Amino Transf (AST/SGOT) 24 U/L (15-37) Alanine Aminotransferase (ALT/SGPT) 16 U/L (12-78) Alkaline Phosphatase 165 U/L (46-116) H Lactate Dehydrogenase 308 U/L (81-234) H Total Creatine Kinase 29 U/L (26-308) C-Reactive Protein, Quantitative 3.0 mg/dL (0.00-0.90) H Pro-B-Type Natriuretic Peptide 2352 pg/mL (0-125) H Total Protein 7.6 G/DL (6.4-8.2) Albumin 3.1 G/DL (3.4-5.0) L Globulin 4.5 g/dL Albumin/Globulin Ratio 0.7 (1.0-2.7) L Triglycerides Level 121 MG/DL (30-150) Cholesterol Level 141 MG/DL (< 200) LDL Cholesterol 79 mg/dL (<100) HDL Cholesterol 40 MG/DL (40-60) Cholesterol/HDL Ratio 3.5 (3.3-4.4) Lipase 244 U/L (73-393) Carcinoembryonic Antigen Pending Free Thyroxine 1.14 NG/DL (0.76-1.46) Free Triiodothyronine 1.5 pg/mL (2.3-4.2) L Digoxin Level 2.0 NG/ML (0.9-2.0) Intake and Output 08/09/19 08/10/19 19:00 07:00 Intake Total 990 ml 825 ml Balance 990 ml 825 ml Intake Oral 240 ml IV Total 750 ml 825 ml # Voids 3 3 # Bowel Movements 1 1 Objective General Appearance: WD/WN, no apparent distress, alert EENT: PERRL/EOMI, normal ENT inspection Neck: non-tender, normal alignment, supple, normal inspection Cardiovascular: normal peripheral pulses, normal rate, regular rhythm, no gallop/murmur, no JVD Respiratory/Chest: chest wall non-tender, lungs clear, normal breath sounds, no respiratory distress, no accessory muscle use Abdomen: normal bowel sounds, decreased bowel sounds, guarding, tender Extremities: normal range of motion, non-tender Neurologic: gravity flow irrigator II-XII 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, no motor/sensory deficits Skin: normal pigmentation, warm/dry Assessment/Plan Problem List: (1) Type II diabetes mellitus Assessment & Plan: continue novolog sliding scale. (2) Hemoperitoneum, nontraumatic Assessment & Plan: Due to coagulopathy due to coumadin. Hold coumadin. Follow hemoglobin. Non surgical-see surgery note=Dr Soria. (3) Epigastric pain (4) Nausea Assessment & Plan: tolerating clear liquid diet-see GI note=Dr Pimentel (5) HTN (hypertension) (6) Atrial fibrillation Assessment & Plan: continue digoxin (7) Coagulopathy Assessment & Plan: Hold coumadin secondary to hemoperitoneum. (8) Cerebral vascular disease (9) Pacemaker Assessment & Plan: EP Cardiology=Dr Carmona (10) Status post mitral valve replacement (11) Renal failure Assessment & Plan: Followed by nephrology =Dr Rivera (12) CHF (congestive heart failure) Assessment & Plan: BNP>2000. Await cardiology consult=Dr Carmona Status: not improved Sher Hansen MD Aug 10, 2019 10:56
[2019-08-10 12:00] VITALS: BP 104/61
--- NOTE | 2019-08-10 12:15 | NUR ---
NURSE NOTES: Patients own medications at bedside. spoke to niece unable to pick it up today. explained to patient we cannot keep it at bedside agreed to be kept at pharmacy. receipt placed at patients chart.
--- NOTE | 2019-08-10 12:56 | GI Progress Note ---
Assessment/Plan Problems: (1) Anemia ICD Codes: D64.9 - Anemia, unspecified SNOMED: 727455422 (2) Iron deficiency ICD Codes: E61.1 - Iron deficiency SNOMED: 39897254 (3) Hemoperitoneum, nontraumatic ICD Codes: K66.1 - Hemoperitoneum SNOMED: 63974871 (4) Epigastric pain ICD Codes: R10.13 - Epigastric pain SNOMED: 95652866 (5) Abdominal pain ICD Codes: R10.9 - Unspecified abdominal pain SNOMED: [id number] Status: unchanged Status Narrative Discussed with Dr. Pimentel Assessment/Plan No plans for any GI procedures at this time Follow-up surgical recommendations >> no noted surgical intervention at this time Follow-up cardiology recommendations 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 Advance diet as tolerated Bowel regimen of Colace and MiraLAX Continue PPI Sent for fecal occult blood stool to rule out any GI bleed Outpatient GI procedures The patient was seen and examined at bedside and all new and available data was reviewed in the patients chart. I agree with the above findings, impression and plan. (Patient seen earlier today. Signature stamp does not reflect patient encounter time.). - Charan Pimentel MD Subjective Subjective Denies any nausea vomiting Denies any abdominal pain at time of evaluation No tenderness to all quadrants Denies any constipation or diarrhea Objective Last 24 Hour Vital Signs Date Time Temp Pulse Resp B/P (MAP) Pulse Ox O2 Delivery O2 Flow Rate FiO2 08/10/19 10:08 71 118/63 08/10/19 09:00 Room Air 08/10/19 08:00 98.1 71 18 118/63 (81) 95 08/10/19 08:00 87 08/10/19 04:00 97.7 80 16 103/55 (71) 98 08/10/19 04:00 87 08/10/19 00:00 98.6 76 18 103/51 (68) 98 08/10/19 00:00 76 08/09/19 21:31 85 119/56 08/09/19 21:00 Room Air 08/09/19 20:00 85 08/09/19 20:00 98.4 85 18 119/56 (77) 96 08/09/19 15:56 76 08/09/19 15:35 98.6 80 18 102/40 (60) 98 Intake and Output 08/09/19 08/10/19 18:59 06:59 Intake Total 915 ml 900 ml Balance 915 ml 900 ml Intake Oral 240 ml IV Total 675 ml 900 ml # Voids 3 3 # Bowel Movements 1 1 Laboratory Tests Test 08/09/19 18:15 08/10/19 02:55 08/10/19 07:30 White Blood Count 6.5 K/UL (4.8-10.8) 6.6 K/UL (4.8-10.8) Red Blood Count 2.88 M/UL (4.20-5.40) L 3.05 M/UL (4.20-5.40) L Hemoglobin 8.5 G/DL (12.0-16.0) L 8.8 G/DL (12.0-16.0) L Hematocrit 25.2 % (37.0-47.0) L 27.5 % (37.0-47.0) L Mean Corpuscular Volume 87 FL (80-99) 90 FL (80-99) Mean Corpuscular Hemoglobin 29.4 PG (27.0-31.0) 28.9 PG (27.0-31.0) Mean Corpuscular Hemoglobin Concent 33.7 G/DL (32.0-36.0) 32.0 G/DL (32.0-36.0) Red Cell Distribution Width 14.5 % (11.6-14.8) 16.5 % (11.6-14.8) H Platelet Count 110 K/UL (150-450) L 118 K/UL (150-450) L Mean Platelet Volume 6.5 FL (6.5-10.1) 7.7 FL (6.5-10.1) Neutrophils (%) (Auto) 75.4 % (45.0-75.0) H % (45.0-75.0) Lymphocytes (%) (Auto) 14.5 % (20.0-45.0) L % (20.0-45.0) Monocytes (%) (Auto) 8.5 % (1.0-10.0) % (1.0-10.0) Eosinophils (%) (Auto) 1.0 % (0.0-3.0) % (0.0-3.0) Basophils (%) (Auto) 0.7 % (0.0-2.0) % (0.0-2.0) Urine Color Yellow Urine Appearance Clear Urine pH 5 (4.5-8.0) Urine Specific [place] 1.015 (1.005-1.035) Urine Protein Negative (NEGATIVE) Urine Glucose (UA) Negative (NEGATIVE) Urine Ketones Negative (NEGATIVE) Urine Blood 1+ (NEGATIVE) H Urine Nitrite Negative (NEGATIVE) Urine Bilirubin Negative (NEGATIVE) Urine Urobilinogen 1 MG/DL (0.0-1.0) H Urine Leukocyte Esterase Negative (NEGATIVE) Urine RBC 0-2 /HPF (0 - 2) Urine WBC 0 /HPF (0 - 2) Urine Squamous Epithelial Cells Few /LPF (NONE/OCC) Urine Bacteria None /HPF (NONE) Urine Eosinophils None seen (NONE SEEN) Urine Random Sodium < 20 mmol/L (20-110) L Differential Total Cells Counted 100 Neutrophils % (Manual) 82 % (45-75) H Lymphocytes % (Manual) 14 % (20-45) L Monocytes % (Manual) 3 % (1-10) Eosinophils % (Manual) 1 % (0-3) Basophils % (Manual) 0 % (0-2) Band Neutrophils 0 % (0-8) Platelet Estimate Decreased L Platelet Morphology Normal Anisocytosis 1+ Erythrocyte Sedimentation Rate 74 MM/HR (0-30) H Reticulocyte Count 1.3 % (0.5-2.0) Prothrombin Time 12.3 SEC (9.30-11.50) H Prothromb Time International Ratio 1.2 (0.9-1.1) H Activated Partial Thromboplast Time 36 SEC (23-33) H Sodium Level 141 MMOL/L (136-145) Potassium Level 4.9 MMOL/L (3.5-5.1) Chloride Level 106 MMOL/L (98-107) Carbon Dioxide Level 28 MMOL/L (21-32) Anion Gap 7 mmol/L (5-15) Blood Urea Nitrogen 36 mg/dL (7-18) H Creatinine 1.5 MG/DL (0.55-1.30) H Estimat Glomerular Filtration Rate mL/min (>60) Glucose Level 131 MG/DL (74-106) H Hemoglobin A1c 7.4 % (4.3-6.0) H Uric Acid 8.8 MG/DL (2.6-7.2) H Calcium Level 8.2 MG/DL (8.5-10.1) L Phosphorus Level 3.5 MG/DL (2.5-4.9) Magnesium Level 2.3 MG/DL (1.8-2.4) Total Bilirubin 1.2 MG/DL (0.2-1.0) H Direct Bilirubin 0.4 MG/DL (0.0-0.3) H Gamma Glutamyl Transpeptidase 169 U/L (5-85) H Aspartate Amino Transf (AST/SGOT) 24 U/L (15-37) Alanine Aminotransferase (ALT/SGPT) 16 U/L (12-78) Alkaline Phosphatase 165 U/L (46-116) H Lactate Dehydrogenase 308 U/L (81-234) H Total Creatine Kinase 29 U/L (26-308) Troponin I 0.000 ng/mL (0.000-0.056) C-Reactive Protein, Quantitative 3.0 mg/dL (0.00-0.90) H Pro-B-Type Natriuretic Peptide 2352 pg/mL (0-125) H Total Protein 7.6 G/DL (6.4-8.2) Albumin 3.1 G/DL (3.4-5.0) L Globulin 4.5 g/dL Albumin/Globulin Ratio 0.7 (1.0-2.7) L Triglycerides Level 121 MG/DL (30-150) Cholesterol Level 141 MG/DL (< 200) LDL Cholesterol 79 mg/dL (<100) HDL Cholesterol 40 MG/DL (40-60) Cholesterol/HDL Ratio 3.5 (3.3-4.4) Lipase 244 U/L (73-393) Carcinoembryonic Antigen Pending Free Thyroxine 1.14 NG/DL (0.76-1.46) Free Triiodothyronine 1.5 pg/mL (2.3-4.2) L Digoxin Level 2.0 NG/ML (0.9-2.0) Height (Feet): 5 Height (Inches): 2.00 Weight (Pounds): 111 General Appearance: WD/WN, no apparent distress, alert Cardiovascular: normal rate Respiratory/Chest: normal breath sounds, no respiratory distress Abdominal Exam: normal bowel sounds, non tender, soft Extremities: normal range of motion, non-tender Objective Abdominal distention with mild tympany in all quadrants Chrissy Jensen NP Aug 10, 2019 12:56
[2019-08-10] MEDS: Docusate 100mg cap ORAL SCH ×2 (13:07→17:36)
--- NOTE | 2019-08-10 13:23 | Pulmonology Progress Note ---
Assessment/Plan Problems: (1) Intra abdominal hemorrhage (2) Coagulopathy (3) Acute renal failure (4) Atrial fibrillation (5) HTN (hypertension) (6) Abdominal pain (7) Pacemaker (8) Aortic valve replaced (9) Status post mitral valve replacement (10) Cerebral vascular disease (11) Diabetes mellitus (12) Chronic anticoagulation Assessment/Plan symptomatic treatment v-paced check electrolytes symptomatic treatment f/u by cardiology keep in teli Subjective ROS Limited/Unobtainable: No Interval Events: less abdominal pain Constitutional: Reports: no symptoms Allergies: Coded Allergies: No Known Allergies (Unverified , 09/17/16) Objective Last 24 Hour Vital Signs Date Time Temp Pulse Resp B/P (MAP) Pulse Ox O2 Delivery O2 Flow Rate FiO2 08/10/19 10:08 71 118/63 08/10/19 09:00 Room Air 08/10/19 08:00 98.1 71 18 118/63 (81) 95 08/10/19 08:00 87 08/10/19 04:00 97.7 80 16 103/55 (71) 98 08/10/19 04:00 87 08/10/19 00:00 98.6 76 18 103/51 (68) 98 08/10/19 00:00 76 08/09/19 21:31 85 119/56 08/09/19 21:00 Room Air 08/09/19 20:00 85 08/09/19 20:00 98.4 85 18 119/56 (77) 96 08/09/19 15:56 76 08/09/19 15:35 98.6 80 18 102/40 (60) 98 Intake and Output 08/09/19 08/10/19 18:59 06:59 Intake Total 915 ml 900 ml Balance 915 ml 900 ml Intake Oral 240 ml IV Total 675 ml 900 ml # Voids 3 3 # Bowel Movements 1 1 General Appearance: cachetic HEENT: normocephalic, atraumatic Respiratory/Chest: chest wall non-tender, lungs clear Breasts: no masses Cardiovascular: normal peripheral pulses, normal rate Abdomen: normal bowel sounds, soft, non tender Genitourinary: normal external genitalia Skin: no lesions Laboratory Tests 08/09/19 18:15: White Blood Count 6.5, Red Blood Count 2.88L, Hemoglobin 8.5L, Hematocrit 25.2L , Mean Corpuscular Volume 87, Mean Corpuscular Hemoglobin 29.4, Mean Corpuscular Hemoglobin Concent 33.7, Red Cell Distribution Width 14.5, Platelet Count 110L, Mean Platelet Volume 6.5, Neutrophils (%) (Auto) 75.4H, Lymphocytes (%) (Auto) 14.5L, Monocytes (%) (Auto) 8.5, Eosinophils (%) (Auto) 1.0, Basophils (%) (Auto) 0.7 08/10/19 02:55: Urine Color Yellow, Urine Appearance Clear, Urine pH 5, Urine Specific [place] 1.015, Urine Protein Negative, Urine Glucose (UA) Negative, Urine Ketones Negative, Urine Blood 1+H, Urine Nitrite Negative, Urine Bilirubin Negative, Urine Urobilinogen 1H, Urine Leukocyte Esterase Negative, Urine RBC 0-2, Urine WBC 0, Urine Squamous Epithelial Cells Few, Urine Bacteria None, Urine Eosinophils None seen, Urine Random Sodium < 20L 08/10/19 07:30: White Blood Count 6.6, Red Blood Count 3.05L, Hemoglobin 8.8L, Hematocrit 27.5L , Mean Corpuscular Volume 90, Mean Corpuscular Hemoglobin 28.9, Mean Corpuscular Hemoglobin Concent 32.0, Red Cell Distribution Width 16.5H, Platelet Count 118L, Mean Platelet Volume 7.7, Neutrophils (%) (Auto) , Lymphocytes (%) (Auto) , Monocytes (%) (Auto) , Eosinophils (%) (Auto) , Basophils (%) (Auto) , Differential Total Cells Counted 100, Neutrophils % ( Manual) 82H, Lymphocytes % (Manual) 14L, Monocytes % (Manual) 3, Eosinophils % ( Manual) 1, Basophils % (Manual) 0, Band Neutrophils 0, Platelet Estimate DecreasedL, Platelet Morphology Normal, Anisocytosis 1+, Erythrocyte Sedimentation Rate 74H, Reticulocyte Count 1.3, Prothrombin Time 12.3H, Prothromb Time International Ratio 1.2H, Activated Partial Thromboplast Time 36H , Sodium Level 141, Potassium Level 4.9, Chloride Level 106, Carbon Dioxide Level 28, Anion Gap 7, Blood Urea Nitrogen 36H, Creatinine 1.5H, Estimat Glomerular Filtration Rate , Glucose Level 131H, Hemoglobin A1c 7.4H, Uric Acid 8.8H, Calcium Level 8.2L, Phosphorus Level 3.5, Magnesium Level 2.3, Total Bilirubin 1.2H, Direct Bilirubin 0.4H, Gamma Glutamyl Transpeptidase 169H, Aspartate Amino Transf (AST/SGOT) 24, Alanine Aminotransferase (ALT/SGPT) 16, Alkaline Phosphatase 165H, Lactate Dehydrogenase 308H, Total Creatine Kinase 29 , Troponin I 0.000, C-Reactive Protein, Quantitative 3.0H, Pro-B-Type Natriuretic Peptide 2352H, Total Protein 7.6, Albumin 3.1L, Globulin 4.5, Albumin/Globulin Ratio 0.7L, Triglycerides Level 121, Cholesterol Level 141, LDL Cholesterol 79, HDL Cholesterol 40, Cholesterol/HDL Ratio 3.5, Lipase 244, Carcinoembryonic Antigen [Pending], Free Thyroxine 1.14, Free Triiodothyronine 1.5L, Digoxin Level 2.0 Current Medications Medications (Trade) Dose Ordered Sig/Grisel Route PRN Reason Start Time Stop Time Status Last Admin Dose Admin Acetaminophen (Tylenol) 650 mg Q4H PRN ORAL fever 08/08/19 17:30 09/07/19 17:29 Allopurinol (Allopurinol) 300 mg DAILY ORAL 08/10/19 10:00 09/09/19 09:59 08/10/19 10:12 Dextrose (Dextrose 50%) 25 ml Q30M PRN IV Hypoglycemia 08/08/19 17:30 09/07/19 17:29 Dextrose (Dextrose 50%) 50 ml Q30M PRN IV Hypoglycemia 08/08/19 17:30 09/07/19 17:29 Docusate Sodium (Colace) 100 mg TID ORAL 08/10/19 13:00 09/08/19 17:59 08/10/19 13:07 Folic Acid (Folate) 2 mg DAILY ORAL 08/10/19 10:15 09/09/19 10:14 08/10/19 10:42 Insulin Aspart (NovoLOG) BEFORE MEALS AND HS SUBQ 08/08/19 21:00 09/07/19 20:59 08/10/19 06:34 Iohexol (OMNIPAQUE-300 100ml) 100 ml NOW PRN INJ Radiology Procedure 08/08/19 15:30 08/10/19 15:22 Liothyronine Sodium (Cytomel) 5 mcg DAILY ORAL 08/11/19 09:00 09/10/19 08:59 Metoprolol Tartrate (Lopressor) 50 mg EVERY 12 HOURS ORAL 08/08/19 21:00 09/07/19 20:59 08/10/19 10:08 Morphine Sulfate (Morphine Sulfate) 2 mg Q4H PRN IVP severe Pain (Pain Scale 7-10) 08/08/19 17:30 08/15/19 17:29 08/08/19 23:17 Nitroglycerin (Ntg) 0.4 mg Q5M X 3 DOSES PRN SL Prn Chest Pain 08/08/19 17:30 09/07/19 17:29 Ondansetron HCl (Zofran) 4 mg Q6H PRN IVP Nausea & Vomiting 08/08/19 17:30 09/07/19 17:29 Pantoprazole (Protonix) 40 mg BID ORAL 08/09/19 18:00 09/08/19 17:59 08/10/19 10:08 Polyethylene Glycol (Miralax) 17 gm HSPRN PRN ORAL Constipation 08/08/19 21:00 09/07/19 20:59 Sodium Chloride 1,000 ml @ 50 mls/hr Q20H IV 08/10/19 19:00 09/07/19 18:59 Temazepam (Restoril) 15 mg HSPRN PRN ORAL Insomnia 08/08/19 21:00 08/15/19 20:59 Remedios Albarran MD Aug 10, 2019 13:23
--- NOTE | 2019-08-10 15:08 | Diagnostic Imaging Report ---
Indication: Abdominal pain Comparison: 09/19/2016 Single view of the abdomen obtained Findings: Bowel gas pattern is nonspecific. No mass, ectopic calcifications, or abnormal gas collections are identified. The bones are unremarkable. Impression: No acute findings
--- NOTE | 2019-08-10 15:33 | Surgery Progress Note ---
Surgery Progress Note Subjective Additional Comments Patient seen and examined bedside. No acute events. Had bowel movement. Passing flatus. H&H stable. KUB noted and normal. Tolerating diet. No nausea vomiting fever chills. Objective Last 24 Hour Vital Signs Date Time Temp Pulse Resp B/P (MAP) Pulse Ox O2 Delivery O2 Flow Rate FiO2 08/10/19 13:00 89 08/10/19 12:00 97.9 74 18 104/61 (75) 96 08/10/19 10:08 71 118/63 08/10/19 09:00 Room Air 08/10/19 08:00 98.1 71 18 118/63 (81) 95 08/10/19 08:00 87 08/10/19 04:00 97.7 80 16 103/55 (71) 98 08/10/19 04:00 87 08/10/19 00:00 98.6 76 18 103/51 (68) 98 08/10/19 00:00 76 08/09/19 21:31 85 119/56 08/09/19 21:00 Room Air 08/09/19 20:00 85 08/09/19 20:00 98.4 85 18 119/56 (77) 96 08/09/19 15:56 76 08/09/19 15:35 98.6 80 18 102/40 (60) 98 I&O Intake and Output 08/09/19 08/10/19 18:59 06:59 Intake Total 915 ml 900 ml Balance 915 ml 900 ml Intake Oral 240 ml IV Total 675 ml 900 ml # Voids 3 3 # Bowel Movements 1 1 Cardiovascular: RSR Respiratory: clear Abdomen: soft, tenderness - Mild discomfort on deep palpation, present bowel sounds, non-distended Extremities: no edema, no tenderness, no cyanosis Laboratory Tests Test 08/09/19 18:15 08/10/19 02:55 08/10/19 07:30 White Blood Count 6.5 K/UL (4.8-10.8) 6.6 K/UL (4.8-10.8) Red Blood Count 2.88 M/UL (4.20-5.40) L 3.05 M/UL (4.20-5.40) L Hemoglobin 8.5 G/DL (12.0-16.0) L 8.8 G/DL (12.0-16.0) L Hematocrit 25.2 % (37.0-47.0) L 27.5 % (37.0-47.0) L Mean Corpuscular Volume 87 FL (80-99) 90 FL (80-99) Mean Corpuscular Hemoglobin 29.4 PG (27.0-31.0) 28.9 PG (27.0-31.0) Mean Corpuscular Hemoglobin Concent 33.7 G/DL (32.0-36.0) 32.0 G/DL (32.0-36.0) Red Cell Distribution Width 14.5 % (11.6-14.8) 16.5 % (11.6-14.8) H Platelet Count 110 K/UL (150-450) L 118 K/UL (150-450) L Mean Platelet Volume 6.5 FL (6.5-10.1) 7.7 FL (6.5-10.1) Neutrophils (%) (Auto) 75.4 % (45.0-75.0) H % (45.0-75.0) Lymphocytes (%) (Auto) 14.5 % (20.0-45.0) L % (20.0-45.0) Monocytes (%) (Auto) 8.5 % (1.0-10.0) % (1.0-10.0) Eosinophils (%) (Auto) 1.0 % (0.0-3.0) % (0.0-3.0) Basophils (%) (Auto) 0.7 % (0.0-2.0) % (0.0-2.0) Urine Color Yellow Urine Appearance Clear Urine pH 5 (4.5-8.0) Urine Specific [place] 1.015 (1.005-1.035) Urine Protein Negative (NEGATIVE) Urine Glucose (UA) Negative (NEGATIVE) Urine Ketones Negative (NEGATIVE) Urine Blood 1+ (NEGATIVE) H Urine Nitrite Negative (NEGATIVE) Urine Bilirubin Negative (NEGATIVE) Urine Urobilinogen 1 MG/DL (0.0-1.0) H Urine Leukocyte Esterase Negative (NEGATIVE) Urine RBC 0-2 /HPF (0 - 2) Urine WBC 0 /HPF (0 - 2) Urine Squamous Epithelial Cells Few /LPF (NONE/OCC) Urine Bacteria None /HPF (NONE) Urine Eosinophils None seen (NONE SEEN) Urine Random Sodium < 20 mmol/L (20-110) L Differential Total Cells Counted 100 Neutrophils % (Manual) 82 % (45-75) H Lymphocytes % (Manual) 14 % (20-45) L Monocytes % (Manual) 3 % (1-10) Eosinophils % (Manual) 1 % (0-3) Basophils % (Manual) 0 % (0-2) Band Neutrophils 0 % (0-8) Platelet Estimate Decreased L Platelet Morphology Normal Anisocytosis 1+ Erythrocyte Sedimentation Rate 74 MM/HR (0-30) H Reticulocyte Count 1.3 % (0.5-2.0) Prothrombin Time 12.3 SEC (9.30-11.50) H Prothromb Time International Ratio 1.2 (0.9-1.1) H Activated Partial Thromboplast Time 36 SEC (23-33) H Sodium Level 141 MMOL/L (136-145) Potassium Level 4.9 MMOL/L (3.5-5.1) Chloride Level 106 MMOL/L (98-107) Carbon Dioxide Level 28 MMOL/L (21-32) Anion Gap 7 mmol/L (5-15) Blood Urea Nitrogen 36 mg/dL (7-18) H Creatinine 1.5 MG/DL (0.55-1.30) H Estimat Glomerular Filtration Rate mL/min (>60) Glucose Level 131 MG/DL (74-106) H Hemoglobin A1c 7.4 % (4.3-6.0) H Uric Acid 8.8 MG/DL (2.6-7.2) H Calcium Level 8.2 MG/DL (8.5-10.1) L Phosphorus Level 3.5 MG/DL (2.5-4.9) Magnesium Level 2.3 MG/DL (1.8-2.4) Total Bilirubin 1.2 MG/DL (0.2-1.0) H Direct Bilirubin 0.4 MG/DL (0.0-0.3) H Gamma Glutamyl Transpeptidase 169 U/L (5-85) H Aspartate Amino Transf (AST/SGOT) 24 U/L (15-37) Alanine Aminotransferase (ALT/SGPT) 16 U/L (12-78) Alkaline Phosphatase 165 U/L (46-116) H Lactate Dehydrogenase 308 U/L (81-234) H Total Creatine Kinase 29 U/L (26-308) Troponin I 0.000 ng/mL (0.000-0.056) C-Reactive Protein, Quantitative 3.0 mg/dL (0.00-0.90) H Pro-B-Type Natriuretic Peptide 2352 pg/mL (0-125) H Total Protein 7.6 G/DL (6.4-8.2) Albumin 3.1 G/DL (3.4-5.0) L Globulin 4.5 g/dL Albumin/Globulin Ratio 0.7 (1.0-2.7) L Triglycerides Level 121 MG/DL (30-150) Cholesterol Level 141 MG/DL (< 200) LDL Cholesterol 79 mg/dL (<100) HDL Cholesterol 40 MG/DL (40-60) Cholesterol/HDL Ratio 3.5 (3.3-4.4) Lipase 244 U/L (73-393) Carcinoembryonic Antigen Pending Free Thyroxine 1.14 NG/DL (0.76-1.46) Free Triiodothyronine 1.5 pg/mL (2.3-4.2) L Digoxin Level 2.0 NG/ML (0.9-2.0) Plan Problems: (1) Abdominal pain Assessment & Plan: 73-year-old female with abdominal pain likely due to intra- abdominal hemorrhage from coagulopathy. No trauma. H&H stable. Exam with mild tenderness but no peritonitis. No acute surgical invention recommend at this time Trend H&H We will follow with serial abdominal exams Reverse coagulopathy-appropriate now Vitamin K and FFP as needed Okay to start clear liquids Cardiology consultation Nephrology consultation worsening renal insufficiency IV fluids Advance to full liquid diet Bowel regimen We will follow with recommendations Thank you for let me participate in patient's care (2) Intra abdominal hemorrhage Assessment & Plan: There is a severe cardiomegaly with biatrial chamber enlargement. 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 Pacemaker is present. There is a hiatal hernia. The lung bases are clear. The IVC and hepatic veins are markedly enlarged. There are generalized reticular densities throughout the mesentery and omentum nonspecific. There is some free fluid within the pelvis especially in the area of the cul-de-sac posterior to the uterus. The fluid has a areas of increased density, suspicious for blood. The nature of the hemoperitoneum is not known and the clinical correlation is needed. There are no signs of trauma or any history of such. There is a hypodensity within the left hemipelvis measuring about 1.7 cm which could be an ovarian cyst. Consider rupture of an ovarian cyst or mass is certainly possible. There may be 1 cm focus of fat (image #[id number]) in association with the left ovary and adjacent to the cystic focus suggesting the possibility of an ovarian dermoid. There is a calcified fibroid within the uterus measuring 1.6 cm. IMPRESSION: Pelvic hemoperitoneum with moderate organized clot in the cul-de-sac. Nature of this is not known but consider possibility of a ruptured ovarian cyst and/or mass. Question of an ovarian dermoid on the left side. Differential includes trauma, iatrogenic causes from recent surgery/procedures, coagulopathies, antiocoagulation Rx or other causes of hemoperitoneum. Calcified uterine fibroid. Severe cardiomyopathy with biatrial chamber enlargement. Distended IVC and hepatic veins probably on the basis of tricuspid regurgitation or right heart failure. Atherosclerotic vascular disease. Pacemaker. Hiatal hernia. Mesenteric nodularity and reticulation may be on the basis of ascites/ hemoperitoneum described earlier. Iain Soria Aug 10, 2019 15:33
--- NOTE | 2019-08-10 15:46 | Cardiology Report ---
APPROVED REPORT EXAM: Two-dimensional and M-mode echocardiogram with Doppler and color Doppler. M-Mode DIMENSIONS IVSd1.3 (0.7-1.1cm)Left Atrium (MM)5.7 (1.6-4.0cm) LVDd5.3 (3.5-5.6cm)Aortic Root4.2 (2.0-3.7cm) PWd1.1 (0.7-1.1cm)Aortic Cusp Exc.1.4 (1.5-2.0cm) IVSs1.1 cm LVDs4.8 (2.5-4.0cm) PWs1.5 cm Mild left ventricular enlargement. Global left ventricular hypokinesis with apical akinesis, c/w ischemic cardiomyopathy . Left ventricular ejection fraction estimated to be 30-35% Mild left ventricular hypertrophy. Severe bi-atrial enlargement . Mild right ventricular enlargement .. Mitral valve prosthesis is seen . An aortic valve prosthesis is seen with decreased cusp excursion. Thickened mitral valve leaflets with normal excursion. Mitral annulus and aortic root calcification. Normal pulmonic valve structure. Normal tricuspid valve structure. IVC dilated at 2.8 cm without physiologic collapse suggestive of increased RA pressure. Pacemaker wire present in the right side chambers. A color flow and spectral Doppler study was performed and revealed: No aortic insufficiency. Peak aortic valve gradient of 33 mm Hg and a mean of 16 mmHg. Aortic valve area 0.6 cm2 calculated by continuity equation. Severe mitral regurgitation. Severe tricuspid regurgitation. Mitral P1/2 time of 20m/s is compatible with mitral valve area of 5cm2. Tricuspid systolic velocities suggests peak right ventricular systolic pressure of 47 mmHg,consistent with moderate pulmonary hypertension. Mild pulmonic regurgitation present.
[2019-08-10 16:00] VITALS: BP 120/67
--- NOTE | 2019-08-10 17:39 | Cardiac Electrophysiology PN ---
Subjective Subjective [id number] Objective Last 24 Hour Vital Signs Date Time Temp Pulse Resp B/P (MAP) Pulse Ox O2 Delivery O2 Flow Rate FiO2 08/10/19 13:00 89 08/10/19 12:00 97.9 74 18 104/61 (75) 96 08/10/19 10:08 71 118/63 08/10/19 09:00 Room Air 08/10/19 08:00 98.1 71 18 118/63 (81) 95 08/10/19 08:00 87 08/10/19 04:00 97.7 80 16 103/55 (71) 98 08/10/19 04:00 87 08/10/19 00:00 98.6 76 18 103/51 (68) 98 08/10/19 00:00 76 08/09/19 21:31 85 119/56 08/09/19 21:00 Room Air 08/09/19 20:00 85 08/09/19 20:00 98.4 85 18 119/56 (77) 96 Intake and Output 08/09/19 08/10/19 18:59 06:59 Intake Total 915 ml 900 ml Balance 915 ml 900 ml Intake Oral 240 ml IV Total 675 ml 900 ml # Voids 3 3 # Bowel Movements 1 1 Laboratory Tests Test 08/09/19 18:15 08/10/19 02:55 08/10/19 07:30 White Blood Count 6.5 K/UL (4.8-10.8) 6.6 K/UL (4.8-10.8) Red Blood Count 2.88 M/UL (4.20-5.40) L 3.05 M/UL (4.20-5.40) L Hemoglobin 8.5 G/DL (12.0-16.0) L 8.8 G/DL (12.0-16.0) L Hematocrit 25.2 % (37.0-47.0) L 27.5 % (37.0-47.0) L Mean Corpuscular Volume 87 FL (80-99) 90 FL (80-99) Mean Corpuscular Hemoglobin 29.4 PG (27.0-31.0) 28.9 PG (27.0-31.0) Mean Corpuscular Hemoglobin Concent 33.7 G/DL (32.0-36.0) 32.0 G/DL (32.0-36.0) Red Cell Distribution Width 14.5 % (11.6-14.8) 16.5 % (11.6-14.8) H Platelet Count 110 K/UL (150-450) L 118 K/UL (150-450) L Mean Platelet Volume 6.5 FL (6.5-10.1) 7.7 FL (6.5-10.1) Neutrophils (%) (Auto) 75.4 % (45.0-75.0) H % (45.0-75.0) Lymphocytes (%) (Auto) 14.5 % (20.0-45.0) L % (20.0-45.0) Monocytes (%) (Auto) 8.5 % (1.0-10.0) % (1.0-10.0) Eosinophils (%) (Auto) 1.0 % (0.0-3.0) % (0.0-3.0) Basophils (%) (Auto) 0.7 % (0.0-2.0) % (0.0-2.0) Urine Color Yellow Urine Appearance Clear Urine pH 5 (4.5-8.0) Urine Specific [place] 1.015 (1.005-1.035) Urine Protein Negative (NEGATIVE) Urine Glucose (UA) Negative (NEGATIVE) Urine Ketones Negative (NEGATIVE) Urine Blood 1+ (NEGATIVE) H Urine Nitrite Negative (NEGATIVE) Urine Bilirubin Negative (NEGATIVE) Urine Urobilinogen 1 MG/DL (0.0-1.0) H Urine Leukocyte Esterase Negative (NEGATIVE) Urine RBC 0-2 /HPF (0 - 2) Urine WBC 0 /HPF (0 - 2) Urine Squamous Epithelial Cells Few /LPF (NONE/OCC) Urine Bacteria None /HPF (NONE) Urine Eosinophils None seen (NONE SEEN) Urine Random Sodium < 20 mmol/L (20-110) L Differential Total Cells Counted 100 Neutrophils % (Manual) 82 % (45-75) H Lymphocytes % (Manual) 14 % (20-45) L Monocytes % (Manual) 3 % (1-10) Eosinophils % (Manual) 1 % (0-3) Basophils % (Manual) 0 % (0-2) Band Neutrophils 0 % (0-8) Platelet Estimate Decreased L Platelet Morphology Normal Anisocytosis 1+ Erythrocyte Sedimentation Rate 74 MM/HR (0-30) H Reticulocyte Count 1.3 % (0.5-2.0) Prothrombin Time 12.3 SEC (9.30-11.50) H Prothromb Time International Ratio 1.2 (0.9-1.1) H Activated Partial Thromboplast Time 36 SEC (23-33) H Sodium Level 141 MMOL/L (136-145) Potassium Level 4.9 MMOL/L (3.5-5.1) Chloride Level 106 MMOL/L (98-107) Carbon Dioxide Level 28 MMOL/L (21-32) Anion Gap 7 mmol/L (5-15) Blood Urea Nitrogen 36 mg/dL (7-18) H Creatinine 1.5 MG/DL (0.55-1.30) H Estimat Glomerular Filtration Rate mL/min (>60) Glucose Level 131 MG/DL (74-106) H Hemoglobin A1c 7.4 % (4.3-6.0) H Uric Acid 8.8 MG/DL (2.6-7.2) H Calcium Level 8.2 MG/DL (8.5-10.1) L Phosphorus Level 3.5 MG/DL (2.5-4.9) Magnesium Level 2.3 MG/DL (1.8-2.4) Total Bilirubin 1.2 MG/DL (0.2-1.0) H Direct Bilirubin 0.4 MG/DL (0.0-0.3) H Gamma Glutamyl Transpeptidase 169 U/L (5-85) H Aspartate Amino Transf (AST/SGOT) 24 U/L (15-37) Alanine Aminotransferase (ALT/SGPT) 16 U/L (12-78) Alkaline Phosphatase 165 U/L (46-116) H Lactate Dehydrogenase 308 U/L (81-234) H Total Creatine Kinase 29 U/L (26-308) Troponin I 0.000 ng/mL (0.000-0.056) C-Reactive Protein, Quantitative 3.0 mg/dL (0.00-0.90) H Pro-B-Type Natriuretic Peptide 2352 pg/mL (0-125) H Total Protein 7.6 G/DL (6.4-8.2) Albumin 3.1 G/DL (3.4-5.0) L Globulin 4.5 g/dL Albumin/Globulin Ratio 0.7 (1.0-2.7) L Triglycerides Level 121 MG/DL (30-150) Cholesterol Level 141 MG/DL (< 200) LDL Cholesterol 79 mg/dL (<100) HDL Cholesterol 40 MG/DL (40-60) Cholesterol/HDL Ratio 3.5 (3.3-4.4) Lipase 244 U/L (73-393) Carcinoembryonic Antigen Pending Free Thyroxine 1.14 NG/DL (0.76-1.46) Free Triiodothyronine 1.5 pg/mL (2.3-4.2) L Digoxin Level 2.0 NG/ML (0.9-2.0) Osmany Carmona MD Aug 10, 2019 17:39
[2019-08-10] MEDS: HydrALAZINE 10mg Tab ORAL SCH (17:49)
--- NOTE | 2019-08-10 19:45 | NUR ---
HAND-OFF: Report given to Moody Pryor Rn.m Patient stable. Plan of care endorsed.
[2019-08-10 20:00] VITALS: BP 103/64
--- NOTE | 2019-08-10 20:00 | NUR ---
Report taken from Lidia Lopez RN. She endorsed to me the plan of care. Rounded on patient. Patient is stable. All needs have been met at this time. Call light within reach.
[2019-08-10] MEDS: Carvedilol 12.5mg tab ORAL SCH (21:51)
[2019-08-11] VITALS: BP 116/60
--- NOTE | 2019-08-11 01:30 | Consultation ---
DATE OF CONSULTATION: 08/10/2019 CARDIOLOGY CONSULTATION CONSULTING PHYSICIAN: Osmany Carmona M.D. REFERRING PHYSICIAN: Kobi Real M.D. REASON FOR CONSULTATION: Management of pacemaker, congestive heart failure, and atrial fibrillation. HISTORY OF PRESENT ILLNESS: The patient is a very pleasing 73-year-old lady with history of hypertension, paroxysmal atrial fibrillation with sick sinus syndrome, status post Biotronik dual-chamber pacemaker implantation as well as history of aortic valve replacement. The patient presented to the emergency room complaining of abdominal pain that started on Thursday as well as nausea. The patient denied any chest pain or shortness of breath. The patient also was evaluated by Dr. Soria for intraabdominal hemorrhage. This was thought to be due to coagulopathy. Cardiology consultation was requested for further evaluation and management. REVIEW OF SYSTEMS: Negative other than what was mentioned in the history of present illness. PAST MEDICAL HISTORY: As mentioned above. FAMILY HISTORY: Noncontributory. SOCIAL HISTORY: She lives at home. Does not smoke or drink alcohol. PHYSICAL EXAMINATION: VITAL SIGNS: Show blood pressure 104/61, pulse 74, respirations 18, and temperature 97.9. HEAD AND NECK: Shows no JVD. LUNGS: Clear. CARDIOVASCULAR: Shows metallic S2 with soft systolic murmur. Sternotomy is intact. Pacemaker in the left subclavian. ABDOMEN: Soft. EXTREMITIES: With no pitting edema. LABORATORY AND DIAGNOSTIC DATA: Her EKG showed atrial sensed and ventricular paced rhythm at a rate of 82. Echocardiogram showed ejection fraction of 30% to 35% with severe MR and TR and aortic valve area of 0.6 with prosthetic aortic valve and also mitral valve. Labs show white count of 6.6, hemoglobin of 8.8, hematocrit of 27, and platelet count of 118,000. Sodium 145, potassium 4.9, BUN of 30, creatinine 1.5, and glucose 131. Hemoglobin A1c is 7.4. BNP 2252. . ASSESSMENT AND PLAN: 1. Paroxysmal atrial fibrillation, currently in atrially paced rhythm and the patient was on digoxin 0.125 mg daily that would be held as the digoxin level is 2. The patient is also on metoprolol 50 mg b.i.d. that would be continued. 2. Status post Biotronik dual-chamber pacemaker implantation by pa in 2016. The pacemaker will be interrogated for further evaluation. 3. History of hypertension. Continue current medications. 4. Diabetes. 5. CVA in 1990. 6. Status post aortic valve replacement in 1985 and then again in 1995. 7. Abdominal pain, currently has improved due to peritoneum with moderate organized clot in the cul-de-sac, possibly from ruptured ovarian cyst or mass. Further evaluation by Dr. Soria. Thank you very much for allowing me to participate in the care of this patient. Please do not hesitate to contact me if you have any questions regarding my evaluation. Sincerely, Osmany Carmona M.D. DR: DARRYL JOB#: [id number] CC:
[2019-08-11 04:00] VITALS: BP 114/55
[2019-08-11] MEDS: NovoLOG Insulin Flexpen SUBQ SCH ×4 (05:45→22:24)
[2019-08-11 07:12] LABS: BASOPHILS % (AUTO) 0.9 % (0.0-2.0); EOSINOPHILS % (AUTO) 3.1 % (0.0-3.0); HEMATOCRIT 26.3 % (37.0-47.0); HEMOGLOBIN 8.5 G/DL (12.0-16.0); LYMPHOCYTES % (AUTO) 16.2 % (20.0-45.0); MEAN CORPUSCULAR VOLUME 90 FL (80-99); MONOCYTES % (AUTO) 8.6 % (1.0-10.0); NEUTROPHILS % (AUTO) 71.3 % (45.0-75.0); PLATELET COUNT 121 K/UL (150-450); RED BLOOD COUNT 2.93 M/UL (4.20-5.40); WHITE BLOOD COUNT 4.7 K/UL (4.8-10.8)
--- NOTE | 2019-08-11 07:19 | NUR ---
Handoff Given to Lidia Lopez RN. Patient Stable. Endorsed plan of care.
[2019-08-11 07:44] LABS: ALANINE AMINOTRANSFERASE 16 U/L (12-78); ALBUMIN/GLOBULIN RATIO 0.7 (1.0-2.7); ALKALINE PHOSPHATASE 174 U/L (46-116); ANION GAP 3 mmol/L (5-15); ASPARTATE AMINO TRANSFERASE 25 U/L (15-37); BILIRUBIN,TOTAL 1.5 MG/DL (0.2-1.0); BLOOD UREA NITROGEN 25 mg/dL (7-18); CALCIUM 8.3 MG/DL (8.5-10.1); CARBON DIOXIDE 31 MMOL/L (21-32); CHLORIDE 106 MMOL/L (98-107); CREATININE 1.2 MG/DL (0.55-1.30); PHOSPHORUS 2.6 MG/DL (2.5-4.9); POTASSIUM 4.3 MMOL/L (3.5-5.1); SODIUM 140 MMOL/L (136-145)
--- NOTE | 2019-08-11 07:44 | NUR ---
NURSE NOTES: Received patient from Hanane Cummings. Pateint is awake at bedside having breakfast. Denies pain or discomfort at this time. Safety precautions in place, bed locked to lowest position. side rails X2 Up. call haines within patients reached. Will attend to needs and monitor patient.
[2019-08-11 07:46] LABS: BILIRUBIN,DIRECT 0.5 MG/DL (0.0-0.3)
[2019-08-11 08:00] VITALS: BP 121/54
[2019-08-11] MEDS: Liothyronine 5mcg tab ORAL SCH (09:43)
[2019-08-11] MEDS: Carvedilol 12.5mg tab ORAL SCH ×2 (09:44→22:20)
[2019-08-11] MEDS: Docusate 100mg cap ORAL SCH ×3 (09:44→17:03)
[2019-08-11] MEDS: HydrALAZINE 10mg Tab ORAL SCH ×2 (09:44→22:19)
--- NOTE | 2019-08-11 09:45 | Cardiac Electrophysiology PN ---
Assessment/Plan Assessment/Plan 1. Paroxysmal atrial fibrillation, currently in atrially paced rhythm on digoxin 0.125 mg daily and metoprolol 50 mg b.i.d . digoxin level is 2. 2. Status post Biotronik dual-chamber pacemaker implantation by me in 2016. The pacemaker will be interrogated for further evaluation. 3. History of hypertension. Continue current medications. 4. Diabetes. 5. CVA in 1990. 6. Status post aortic valve replacement in 1985 and then again in 1995. 7. Abdominal pain, currently has improved due to bleeding peritoneum with moderate organized clot in the cul-de-sac, possibly from ruptured ovarian cyst or mass. Further evaluation by Dr. Soria. KANDY RN Subjective Subjective Alert NAD. No CP or SOB. Paced Objective Last 24 Hour Vital Signs Date Time Temp Pulse Resp B/P (MAP) Pulse Ox O2 Delivery O2 Flow Rate FiO2 08/11/19 08:00 98.0 75 20 121/54 (76) 96 08/11/19 04:00 97.9 82 18 114/55 (74) 96 08/11/19 04:00 89 08/11/19 00:00 97.9 82 18 116/60 (78) 96 08/11/19 00:00 89 08/10/19 21:51 70 120/67 08/10/19 21:00 Room Air 08/10/19 20:00 98.1 69 17 103/64 (77) 95 08/10/19 17:49 120/67 08/10/19 17:49 120/67 08/10/19 16:00 98.2 78 18 120/67 (84) 96 08/10/19 16:00 70 08/10/19 13:00 89 08/10/19 12:00 97.9 74 18 104/61 (75) 96 08/10/19 10:08 71 118/63 Intake and Output 08/10/19 08/11/19 19:00 07:00 Intake Total 435 ml Balance 435 ml Intake Oral 360 ml IV Total 75 ml # Voids 5 1 # Bowel Movements 2 Laboratory Tests Test 08/11/19 05:34 White Blood Count 4.7 K/UL (4.8-10.8) L Red Blood Count 2.93 M/UL (4.20-5.40) L Hemoglobin 8.5 G/DL (12.0-16.0) L Hematocrit 26.3 % (37.0-47.0) L Mean Corpuscular Volume 90 FL (80-99) Mean Corpuscular Hemoglobin 29.2 PG (27.0-31.0) Mean Corpuscular Hemoglobin Concent 32.5 G/DL (32.0-36.0) Red Cell Distribution Width 16.0 % (11.6-14.8) H Platelet Count 121 K/UL (150-450) L Mean Platelet Volume 7.0 FL (6.5-10.1) Neutrophils (%) (Auto) 71.3 % (45.0-75.0) Lymphocytes (%) (Auto) 16.2 % (20.0-45.0) L Monocytes (%) (Auto) 8.6 % (1.0-10.0) Eosinophils (%) (Auto) 3.1 % (0.0-3.0) H Basophils (%) (Auto) 0.9 % (0.0-2.0) Erythrocyte Sedimentation Rate 74 MM/HR (0-30) H Sodium Level 140 MMOL/L (136-145) Potassium Level 4.3 MMOL/L (3.5-5.1) Chloride Level 106 MMOL/L (98-107) Carbon Dioxide Level 31 MMOL/L (21-32) Anion Gap 3 mmol/L (5-15) L Blood Urea Nitrogen 25 mg/dL (7-18) H Creatinine 1.2 MG/DL (0.55-1.30) Estimat Glomerular Filtration Rate mL/min (>60) Glucose Level 117 MG/DL (74-106) H Calcium Level 8.3 MG/DL (8.5-10.1) L Phosphorus Level 2.6 MG/DL (2.5-4.9) Magnesium Level 2.3 MG/DL (1.8-2.4) Total Bilirubin 1.5 MG/DL (0.2-1.0) H Direct Bilirubin 0.5 MG/DL (0.0-0.3) H Aspartate Amino Transf (AST/SGOT) 25 U/L (15-37) Alanine Aminotransferase (ALT/SGPT) 16 U/L (12-78) Alkaline Phosphatase 174 U/L (46-116) H Troponin I 0.045 ng/mL (0.000-0.056) C-Reactive Protein, Quantitative 2.1 mg/dL (0.00-0.90) H Pro-B-Type Natriuretic Peptide 2833 pg/mL (0-125) H Total Protein 7.3 G/DL (6.4-8.2) Albumin 3.0 G/DL (3.4-5.0) L Globulin 4.3 g/dL Albumin/Globulin Ratio 0.7 (1.0-2.7) L Digoxin Level 1.4 NG/ML (0.9-2.0) Objective HEAD AND NECK: No JVD. LUNGS: Clear. CARDIOVASCULAR: Shows metallic S2 with soft systolic murmur. Sternotomy is intact. Pacemaker in the left subclavian. ABDOMEN: Soft. EXTREMITIES: With no pitting edema. Osmany Carmona MD Aug 11, 2019 09:45
--- NOTE | 2019-08-11 11:03 | NUR ---
CASE MANAGEMENT: REVIEW 08/11/19 SI: HTN /PELVIC HEMOPERITONEUM / AFIB WITH RVR 98.0 75 20 121/54 96% ON RA WBC 4.7 RBC 2.93 H/H 8.5/26.3 BUN 25 BNP 2833 IS: IVF NS @50ML/HR PROTONIX BID ISORDIL PO BID COREG PO BID NOVOLOG SQ AC&HS 2E TELE UNIT DCP: HOME WHEN MEDICALLY CLEARED PLAN: CARDIO TO INTERROGATE PACEMAKER CARDIOMYOPATHY
[2019-08-11 12:00] VITALS: BP 97/44
--- NOTE | 2019-08-11 12:33 | GI Progress Note ---
Assessment/Plan Problems: (1) Anemia ICD Codes: D64.9 - Anemia, unspecified SNOMED: 281736523 (2) Iron deficiency ICD Codes: E61.1 - Iron deficiency SNOMED: 81508202 (3) Hemoperitoneum, nontraumatic ICD Codes: K66.1 - Hemoperitoneum SNOMED: 53708168 (4) Epigastric pain ICD Codes: R10.13 - Epigastric pain SNOMED: 29278512 (5) Abdominal pain ICD Codes: R10.9 - Unspecified abdominal pain SNOMED: 81963428 Status: stable Status Narrative Discussed with Dr. Pimentel Assessment/Plan No plans for any GI procedures at this time Follow-up surgical recommendations >> no noted surgical intervention at this time Follow-up cardiology recommendations 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, security team lead KUB negative Advance diet as tolerated Bowel regimen of Colace and MiraLAX Continue PPI Sent for fecal occult blood stool to rule out any GI bleed Outpatient GI procedures The patient was seen and examined at bedside and all new and available data was reviewed in the patients chart. I agree with the above findings, impression and plan. (Patient seen earlier today. Signature stamp does not reflect patient encounter time.). - Charan Pimentel MD Subjective Subjective Denies any nausea vomiting Denies any abdominal pain at time of evaluation No tenderness to all quadrants Denies any constipation or diarrhea Able to tolerate full liquid diet without any complications Objective Last 24 Hour Vital Signs Date Time Temp Pulse Resp B/P (MAP) Pulse Ox O2 Delivery O2 Flow Rate FiO2 08/11/19 12:00 98.0 78 18 97/44 (61) 97 08/11/19 09:44 75 121/54 08/11/19 09:44 121/54 08/11/19 09:44 121/54 08/11/19 09:00 Room Air 08/11/19 08:00 98.0 75 20 121/54 (76) 96 08/11/19 04:00 97.9 82 18 114/55 (74) 96 08/11/19 04:00 89 08/11/19 00:00 97.9 82 18 116/60 (78) 96 08/11/19 00:00 89 08/10/19 21:51 70 120/67 08/10/19 21:00 Room Air 08/10/19 20:00 98.1 69 17 103/64 (77) 95 08/10/19 17:49 120/67 08/10/19 17:49 120/67 08/10/19 16:00 98.2 78 18 120/67 (84) 96 08/10/19 16:00 70 08/10/19 13:00 89 Intake and Output 08/10/19 08/11/19 19:00 07:00 Intake Total 435 ml Balance 435 ml Intake Oral 360 ml IV Total 75 ml # Voids 5 1 # Bowel Movements 2 Laboratory Tests Test 08/11/19 05:34 White Blood Count 4.7 K/UL (4.8-10.8) L Red Blood Count 2.93 M/UL (4.20-5.40) L Hemoglobin 8.5 G/DL (12.0-16.0) L Hematocrit 26.3 % (37.0-47.0) L Mean Corpuscular Volume 90 FL (80-99) Mean Corpuscular Hemoglobin 29.2 PG (27.0-31.0) Mean Corpuscular Hemoglobin Concent 32.5 G/DL (32.0-36.0) Red Cell Distribution Width 16.0 % (11.6-14.8) H Platelet Count 121 K/UL (150-450) L Mean Platelet Volume 7.0 FL (6.5-10.1) Neutrophils (%) (Auto) 71.3 % (45.0-75.0) Lymphocytes (%) (Auto) 16.2 % (20.0-45.0) L Monocytes (%) (Auto) 8.6 % (1.0-10.0) Eosinophils (%) (Auto) 3.1 % (0.0-3.0) H Basophils (%) (Auto) 0.9 % (0.0-2.0) Erythrocyte Sedimentation Rate 74 MM/HR (0-30) H Sodium Level 140 MMOL/L (136-145) Potassium Level 4.3 MMOL/L (3.5-5.1) Chloride Level 106 MMOL/L (98-107) Carbon Dioxide Level 31 MMOL/L (21-32) Anion Gap 3 mmol/L (5-15) L Blood Urea Nitrogen 25 mg/dL (7-18) H Creatinine 1.2 MG/DL (0.55-1.30) Estimat Glomerular Filtration Rate mL/min (>60) Glucose Level 117 MG/DL (74-106) H Calcium Level 8.3 MG/DL (8.5-10.1) L Phosphorus Level 2.6 MG/DL (2.5-4.9) Magnesium Level 2.3 MG/DL (1.8-2.4) Total Bilirubin 1.5 MG/DL (0.2-1.0) H Direct Bilirubin 0.5 MG/DL (0.0-0.3) H Aspartate Amino Transf (AST/SGOT) 25 U/L (15-37) Alanine Aminotransferase (ALT/SGPT) 16 U/L (12-78) Alkaline Phosphatase 174 U/L (46-116) H Troponin I 0.045 ng/mL (0.000-0.056) C-Reactive Protein, Quantitative 2.1 mg/dL (0.00-0.90) H Pro-B-Type Natriuretic Peptide 2833 pg/mL (0-125) H Total Protein 7.3 G/DL (6.4-8.2) Albumin 3.0 G/DL (3.4-5.0) L Globulin 4.3 g/dL Albumin/Globulin Ratio 0.7 (1.0-2.7) L Digoxin Level 1.4 NG/ML (0.9-2.0) Height (Feet): 5 Height (Inches): 2.00 Weight (Pounds): 111 General Appearance: WD/WN, no apparent distress, alert Cardiovascular: normal rate Respiratory/Chest: normal breath sounds, no respiratory distress Abdominal Exam: normal bowel sounds, non tender, soft Extremities: normal range of motion, non-tender Objective Abdominal distention with mild tympany in all quadrants Chrissy Jensen NP Aug 11, 2019 12:33
--- NOTE | 2019-08-11 13:01 | Pulmonology Progress Note ---
Assessment/Plan Problems: (1) Intra abdominal hemorrhage (2) Coagulopathy (3) Acute renal failure (4) Atrial fibrillation (5) HTN (hypertension) (6) Abdominal pain (7) Pacemaker (8) Aortic valve replaced (9) Status post mitral valve replacement (10) Cerebral vascular disease (11) Diabetes mellitus (12) Chronic anticoagulation Assessment/Plan Blood sugar fairly controlled, symptomatic treatment v-paced, pacemaker will be interrogated check electrolytes symptomatic treatment pain management, will need to start the anticoagulation soon. Subjective ROS Limited/Unobtainable: Yes Constitutional: Reports: no symptoms HEENT: Repors: no symptoms Allergies: Coded Allergies: No Known Allergies (Unverified , 09/17/16) Objective Last 24 Hour Vital Signs Date Time Temp Pulse Resp B/P (MAP) Pulse Ox O2 Delivery O2 Flow Rate FiO2 08/11/19 12:00 73 08/11/19 12:00 98.0 78 18 97/44 (61) 97 08/11/19 09:44 75 121/54 08/11/19 09:44 121/54 08/11/19 09:44 121/54 08/11/19 09:00 Room Air 08/11/19 08:00 98.0 75 20 121/54 (76) 96 08/11/19 08:00 102 08/11/19 04:00 97.9 82 18 114/55 (74) 96 08/11/19 04:00 89 08/11/19 00:00 97.9 82 18 116/60 (78) 96 08/11/19 00:00 89 08/10/19 21:51 70 120/67 08/10/19 21:00 Room Air 08/10/19 20:00 98.1 69 17 103/64 (77) 95 08/10/19 17:49 120/67 08/10/19 17:49 120/67 08/10/19 16:00 98.2 78 18 120/67 (84) 96 08/10/19 16:00 70 08/10/19 13:00 89 Intake and Output 08/10/19 08/11/19 19:00 07:00 Intake Total 435 ml Balance 435 ml Intake Oral 360 ml IV Total 75 ml # Voids 5 1 # Bowel Movements 2 General Appearance: WD/WN HEENT: normocephalic, atraumatic Respiratory/Chest: chest wall non-tender, lungs clear Breasts: no masses Cardiovascular: normal peripheral pulses, normal rate Abdomen: normal bowel sounds, soft, non tender, no organomegaly Laboratory Tests 08/11/19 05:34: White Blood Count 4.7L, Red Blood Count 2.93L, Hemoglobin 8.5L, Hematocrit 26.3L , Mean Corpuscular Volume 90, Mean Corpuscular Hemoglobin 29.2, Mean Corpuscular Hemoglobin Concent 32.5, Red Cell Distribution Width 16.0H, Platelet Count 121L, Mean Platelet Volume 7.0, Neutrophils (%) (Auto) 71.3, Lymphocytes (%) (Auto) 16.2L, Monocytes (%) (Auto) 8.6, Eosinophils (%) (Auto) 3.1H, Basophils (%) (Auto) 0.9, Erythrocyte Sedimentation Rate 74H, Sodium Level 140, Potassium Level 4.3, Chloride Level 106, Carbon Dioxide Level 31, Anion Gap 3L, Blood Urea Nitrogen 25H, Creatinine 1.2, Estimat Glomerular Filtration Rate , Glucose Level 117H, Calcium Level 8.3L, Phosphorus Level 2.6, Magnesium Level 2.3, Total Bilirubin 1.5H, Direct Bilirubin 0.5H, Aspartate Amino Transf (AST/SGOT) 25, Alanine Aminotransferase (ALT/SGPT) 16, Alkaline Phosphatase 174H, Troponin I 0.045, C-Reactive Protein, Quantitative 2.1H, Pro-B -Type Natriuretic Peptide 2833H, Total Protein 7.3, Albumin 3.0L, Globulin 4.3, Albumin/Globulin Ratio 0.7L, Digoxin Level 1.4 Current Medications Medications (Trade) Dose Ordered Sig/Grisel Route PRN Reason Start Time Stop Time Status Last Admin Dose Admin Acetaminophen (Tylenol) 650 mg Q4H PRN ORAL fever 08/08/19 17:30 09/07/19 17:29 Allopurinol (Allopurinol) 150 mg DAILY ORAL 08/12/19 09:00 09/11/19 08:59 Carvedilol (Coreg) 12.5 mg EVERY 12 HOURS ORAL 08/10/19 21:00 09/09/19 20:59 08/11/19 09:44 Dextrose (Dextrose 50%) 25 ml Q30M PRN IV Hypoglycemia 08/08/19 17:30 09/07/19 17:29 Dextrose (Dextrose 50%) 50 ml Q30M PRN IV Hypoglycemia 08/08/19 17:30 09/07/19 17:29 Docusate Sodium (Colace) 100 mg TID ORAL 08/10/19 13:00 09/08/19 17:59 08/11/19 12:25 Folic Acid (Folate) 2 mg DAILY ORAL 08/10/19 10:15 09/09/19 10:14 08/11/19 09:44 Hydralazine HCl (Apresoline) 10 mg Q12HR ORAL 08/11/19 21:00 09/09/19 17:59 Insulin Aspart (NovoLOG) BEFORE MEALS AND HS SUBQ 08/08/19 21:00 09/07/19 20:59 08/11/19 12:26 Isosorbide Dinitrate (Isordil) 10 mg BID ORAL 08/10/19 18:00 09/09/19 17:59 08/11/19 09:44 Liothyronine Sodium (Cytomel) 5 mcg DAILY ORAL 08/11/19 09:00 09/10/19 08:59 08/11/19 09:43 Morphine Sulfate (Morphine Sulfate) 2 mg Q4H PRN IVP severe Pain (Pain Scale 7-10) 08/08/19 17:30 08/15/19 17:29 08/08/19 23:17 Nitroglycerin (Ntg) 0.4 mg Q5M X 3 DOSES PRN SL Prn Chest Pain 08/08/19 17:30 09/07/19 17:29 Ondansetron HCl (Zofran) 4 mg Q6H PRN IVP Nausea & Vomiting 08/08/19 17:30 09/07/19 17:29 Pantoprazole (Protonix) 40 mg BID ORAL 08/09/19 18:00 09/08/19 17:59 08/11/19 09:43 Polyethylene Glycol (Miralax) 17 gm HSPRN PRN ORAL Constipation 08/08/19 21:00 09/07/19 20:59 Sodium Chloride 1,000 ml @ 50 mls/hr Q20H IV 08/10/19 19:00 09/07/19 18:59 08/10/19 19:05 Temazepam (Restoril) 15 mg HSPRN PRN ORAL Insomnia 08/08/19 21:00 08/15/19 20:59 Remedios Albarran MD Aug 11, 2019 13:01
--- NOTE | 2019-08-11 13:45 | Nephrology Progress Note ---
Assessment/Plan Problem List: (1) Acute renal failure (2) Diabetic nephropathy (3) Diabetes mellitus (4) HTN (hypertension) (5) Pacemaker Assessment Renal failure ? Acute on chronic Pelvic hemoperitoneum. Epigastric pain. Nausea. Hypertension. Diabetes type 2. Atrial fibrillation. Hypercholesterolemia. Cerebrovascular disease. 1990 Plan folic acid cytomel Slow Hydrate Anemia avila- transfusedf monitor renal parameters 2D echo Pending Kidney [facility] medical Renal disease Subjective ROS Limited/Unobtainable: No Constitutional: Reports: malaise Objective Objective Last 24 Hour Vital Signs Date Time Temp Pulse Resp B/P (MAP) Pulse Ox O2 Delivery O2 Flow Rate FiO2 08/11/19 12:00 73 08/11/19 12:00 98.0 78 18 97/44 (61) 97 08/11/19 09:44 75 121/54 08/11/19 09:44 121/54 08/11/19 09:44 121/54 08/11/19 09:00 Room Air 08/11/19 08:00 98.0 75 20 121/54 (76) 96 08/11/19 08:00 102 08/11/19 04:00 97.9 82 18 114/55 (74) 96 08/11/19 04:00 89 08/11/19 00:00 97.9 82 18 116/60 (78) 96 08/11/19 00:00 89 08/10/19 21:51 70 120/67 08/10/19 21:00 Room Air 08/10/19 20:00 98.1 69 17 103/64 (77) 95 08/10/19 17:49 120/67 08/10/19 17:49 120/67 08/10/19 16:00 98.2 78 18 120/67 (84) 96 08/10/19 16:00 70 Intake and Output 08/10/19 08/11/19 18:59 06:59 Intake Total 435 ml Balance 435 ml Intake Oral 360 ml IV Total 75 ml # Voids 5 1 # Bowel Movements 2 Laboratory Tests 08/11/19 05:34: White Blood Count 4.7L, Red Blood Count 2.93L, Hemoglobin 8.5L, Hematocrit 26.3L , Mean Corpuscular Volume 90, Mean Corpuscular Hemoglobin 29.2, Mean Corpuscular Hemoglobin Concent 32.5, Red Cell Distribution Width 16.0H, Platelet Count 121L, Mean Platelet Volume 7.0, Neutrophils (%) (Auto) 71.3, Lymphocytes (%) (Auto) 16.2L, Monocytes (%) (Auto) 8.6, Eosinophils (%) (Auto) 3.1H, Basophils (%) (Auto) 0.9, Erythrocyte Sedimentation Rate 74H, Sodium Level 140, Potassium Level 4.3, Chloride Level 106, Carbon Dioxide Level 31, Anion Gap 3L, Blood Urea Nitrogen 25H, Creatinine 1.2, Estimat Glomerular Filtration Rate , Glucose Level 117H, Calcium Level 8.3L, Phosphorus Level 2.6, Magnesium Level 2.3, Total Bilirubin 1.5H, Direct Bilirubin 0.5H, Aspartate Amino Transf (AST/SGOT) 25, Alanine Aminotransferase (ALT/SGPT) 16, Alkaline Phosphatase 174H, Troponin I 0.045, C-Reactive Protein, Quantitative 2.1H, Pro-B -Type Natriuretic Peptide 2833H, Total Protein 7.3, Albumin 3.0L, Globulin 4.3, Albumin/Globulin Ratio 0.7L, Digoxin Level 1.4 Height (Feet): 5 Height (Inches): 2.00 Weight (Pounds): 111 General Appearance: no apparent distress EENT: normal ENT inspection Cardiovascular: normal rate Respiratory/Chest: decreased breath sounds Abdomen: soft Kirby Rivera MD Aug 11, 2019 13:45
--- NOTE | 2019-08-11 14:15 | Surgery Progress Note ---
Surgery Progress Note Subjective Additional Comments no acute events BM yesterday tolerating fulls no n/v/f/c no pain today Objective Last 24 Hour Vital Signs Date Time Temp Pulse Resp B/P (MAP) Pulse Ox O2 Delivery O2 Flow Rate FiO2 08/11/19 12:00 73 08/11/19 12:00 98.0 78 18 97/44 (61) 97 08/11/19 09:44 75 121/54 08/11/19 09:44 121/54 08/11/19 09:44 121/54 08/11/19 09:00 Room Air 08/11/19 08:00 98.0 75 20 121/54 (76) 96 08/11/19 08:00 102 08/11/19 04:00 97.9 82 18 114/55 (74) 96 08/11/19 04:00 89 08/11/19 00:00 97.9 82 18 116/60 (78) 96 08/11/19 00:00 89 08/10/19 21:51 70 120/67 08/10/19 21:00 Room Air 08/10/19 20:00 98.1 69 17 103/64 (77) 95 08/10/19 17:49 120/67 08/10/19 17:49 120/67 08/10/19 16:00 98.2 78 18 120/67 (84) 96 08/10/19 16:00 70 I&O Intake and Output 08/10/19 08/11/19 19:00 07:00 Intake Total 435 ml Balance 435 ml Intake Oral 360 ml IV Total 75 ml # Voids 5 1 # Bowel Movements 2 Dressing: other Wound: other Drains: other Cardiovascular: RSR Respiratory: clear Abdomen: soft, non-tender, present bowel sounds, non-distended Extremities: no edema, no tenderness, no cyanosis Laboratory Tests Test 08/11/19 05:34 White Blood Count 4.7 K/UL (4.8-10.8) L Red Blood Count 2.93 M/UL (4.20-5.40) L Hemoglobin 8.5 G/DL (12.0-16.0) L Hematocrit 26.3 % (37.0-47.0) L Mean Corpuscular Volume 90 FL (80-99) Mean Corpuscular Hemoglobin 29.2 PG (27.0-31.0) Mean Corpuscular Hemoglobin Concent 32.5 G/DL (32.0-36.0) Red Cell Distribution Width 16.0 % (11.6-14.8) H Platelet Count 121 K/UL (150-450) L Mean Platelet Volume 7.0 FL (6.5-10.1) Neutrophils (%) (Auto) 71.3 % (45.0-75.0) Lymphocytes (%) (Auto) 16.2 % (20.0-45.0) L Monocytes (%) (Auto) 8.6 % (1.0-10.0) Eosinophils (%) (Auto) 3.1 % (0.0-3.0) H Basophils (%) (Auto) 0.9 % (0.0-2.0) Erythrocyte Sedimentation Rate 74 MM/HR (0-30) H Sodium Level 140 MMOL/L (136-145) Potassium Level 4.3 MMOL/L (3.5-5.1) Chloride Level 106 MMOL/L (98-107) Carbon Dioxide Level 31 MMOL/L (21-32) Anion Gap 3 mmol/L (5-15) L Blood Urea Nitrogen 25 mg/dL (7-18) H Creatinine 1.2 MG/DL (0.55-1.30) Estimat Glomerular Filtration Rate mL/min (>60) Glucose Level 117 MG/DL (74-106) H Calcium Level 8.3 MG/DL (8.5-10.1) L Phosphorus Level 2.6 MG/DL (2.5-4.9) Magnesium Level 2.3 MG/DL (1.8-2.4) Total Bilirubin 1.5 MG/DL (0.2-1.0) H Direct Bilirubin 0.5 MG/DL (0.0-0.3) H Aspartate Amino Transf (AST/SGOT) 25 U/L (15-37) Alanine Aminotransferase (ALT/SGPT) 16 U/L (12-78) Alkaline Phosphatase 174 U/L (46-116) H Troponin I 0.045 ng/mL (0.000-0.056) C-Reactive Protein, Quantitative 2.1 mg/dL (0.00-0.90) H Pro-B-Type Natriuretic Peptide 2833 pg/mL (0-125) H Total Protein 7.3 G/DL (6.4-8.2) Albumin 3.0 G/DL (3.4-5.0) L Globulin 4.3 g/dL Albumin/Globulin Ratio 0.7 (1.0-2.7) L Digoxin Level 1.4 NG/ML (0.9-2.0) Plan Problems: (1) Abdominal pain Assessment & Plan: 73-year-old female with abdominal pain likely due to intra- abdominal hemorrhage from coagulopathy. No trauma. H&H stable. Exam with mild tenderness but no peritonitis. No acute surgical invention recommend at this time Trend H&H We will follow with serial abdominal exams Reverse coagulopathy-appropriate now Vitamin K and FFP as needed Okay to start clear liquids Cardiology consultation Nephrology consultation worsening renal insufficiency IV fluids Advance diet Bowel regimen We will follow with recommendations Thank you for let me participate in patient's care (2) Intra abdominal hemorrhage Assessment & Plan: There is a severe cardiomegaly with biatrial chamber enlargement. 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 Pacemaker is present. There is a hiatal hernia. The lung bases are clear. The IVC and hepatic veins are markedly enlarged. There are generalized reticular densities throughout the mesentery and omentum nonspecific. There is some free fluid within the pelvis especially in the area of the cul-de-sac posterior to the uterus. The fluid has a areas of increased density, suspicious for blood. The nature of the hemoperitoneum is not known and the clinical correlation is needed. There are no signs of trauma or any history of such. There is a hypodensity within the left hemipelvis measuring about 1.7 cm which could be an ovarian cyst. Consider rupture of an ovarian cyst or mass is certainly possible. There may be 1 cm focus of fat (image #[id number]/series [id number]) in association with the left ovary and adjacent to the cystic focus suggesting the possibility of an ovarian dermoid. There is a calcified fibroid within the uterus measuring 1.6 cm. IMPRESSION: Pelvic hemoperitoneum with moderate organized clot in the cul-de-sac. Nature of this is not known but consider possibility of a ruptured ovarian cyst and/or mass. Question of an ovarian dermoid on the left side. Differential includes trauma, iatrogenic causes from recent surgery/procedures, coagulopathies, antiocoagulation Rx or other causes of hemoperitoneum. Calcified uterine fibroid. Severe cardiomyopathy with biatrial chamber enlargement. Distended IVC and hepatic veins probably on the basis of tricuspid regurgitation or right heart failure. Atherosclerotic vascular disease. Pacemaker. Hiatal hernia. Mesenteric nodularity and reticulation may be on the basis of ascites/ hemoperitoneum described earlier. Iain Soria Aug 11, 2019 14:15
[2019-08-11 16:00] VITALS: BP 110/55
--- NOTE | 2019-08-11 17:20 | Internal Med Progress Note ---
Subjective Date of Service: Aug 11, 2019 Physician Name Sher Hansen Attending Physician Kobi Real MD Current Medications Medications (Trade) Dose Ordered Sig/Grisel Route PRN Reason Start Time Stop Time Status Last Admin Dose Admin Acetaminophen (Tylenol) 650 mg Q4H PRN ORAL fever 08/08/19 17:30 09/07/19 17:29 Allopurinol (Allopurinol) 150 mg DAILY ORAL 08/12/19 09:00 09/11/19 08:59 Carvedilol (Coreg) 12.5 mg EVERY 12 HOURS ORAL 08/10/19 21:00 09/09/19 20:59 08/11/19 09:44 Dextrose (Dextrose 50%) 25 ml Q30M PRN IV Hypoglycemia 08/08/19 17:30 09/07/19 17:29 Dextrose (Dextrose 50%) 50 ml Q30M PRN IV Hypoglycemia 08/08/19 17:30 09/07/19 17:29 Docusate Sodium (Colace) 100 mg TID ORAL 08/10/19 13:00 09/08/19 17:59 08/11/19 17:03 Folic Acid (Folate) 2 mg DAILY ORAL 08/10/19 10:15 09/09/19 10:14 08/11/19 09:44 Hydralazine HCl (Apresoline) 10 mg Q12HR ORAL 08/11/19 21:00 09/09/19 17:59 Insulin Aspart (NovoLOG) BEFORE MEALS AND HS SUBQ 08/08/19 21:00 09/07/19 20:59 08/11/19 17:04 Isosorbide Dinitrate (Isordil) 10 mg BID ORAL 08/10/19 18:00 09/09/19 17:59 08/11/19 17:03 Liothyronine Sodium (Cytomel) 5 mcg DAILY ORAL 08/11/19 09:00 09/10/19 08:59 08/11/19 09:43 Nitroglycerin (Ntg) 0.4 mg Q5M X 3 DOSES PRN SL Prn Chest Pain 08/08/19 17:30 09/07/19 17:29 Ondansetron HCl (Zofran) 4 mg Q6H PRN IVP Nausea & Vomiting 08/08/19 17:30 09/07/19 17:29 Pantoprazole (Protonix) 40 mg BID ORAL 08/09/19 18:00 09/08/19 17:59 08/11/19 17:03 Polyethylene Glycol (Miralax) 17 gm HSPRN PRN ORAL Constipation 08/08/19 21:00 09/07/19 20:59 Temazepam (Restoril) 15 mg HSPRN PRN ORAL Insomnia 08/08/19 21:00 08/15/19 20:59 Allergies: Coded Allergies: No Known Allergies (Unverified , 09/17/16) ROS Limited/Unobtainable: No Constitutional: Reports: no symptoms HEENT: Reports: no symptoms Cardiovascular: Reports: no symptoms Respiratory: Reports: no symptoms Gastrointestinal/Abdominal: Reports: no symptoms Genitourinary: Reports: no symptoms Neurologic/Psychiatric: Reports: no symptoms Subjective 73 YO F admitted with abdominal pain. Now pelvic hemoperitoneum and CHF. Cover for Int Sunny-Dr Real Objective Last Vital Signs Date Time Temp Pulse Resp B/P (MAP) Pulse Ox O2 Delivery O2 Flow Rate FiO2 08/11/19 17:03 110/55 08/11/19 16:00 97.7 80 20 97 08/11/19 09:00 Room Air 08/09/19 09:00 Laboratory Tests Test 08/11/19 05:34 White Blood Count 4.7 K/UL (4.8-10.8) L Red Blood Count 2.93 M/UL (4.20-5.40) L Hemoglobin 8.5 G/DL (12.0-16.0) L Hematocrit 26.3 % (37.0-47.0) L Mean Corpuscular Volume 90 FL (80-99) Mean Corpuscular Hemoglobin 29.2 PG (27.0-31.0) Mean Corpuscular Hemoglobin Concent 32.5 G/DL (32.0-36.0) Red Cell Distribution Width 16.0 % (11.6-14.8) H Platelet Count 121 K/UL (150-450) L Mean Platelet Volume 7.0 FL (6.5-10.1) Neutrophils (%) (Auto) 71.3 % (45.0-75.0) Lymphocytes (%) (Auto) 16.2 % (20.0-45.0) L Monocytes (%) (Auto) 8.6 % (1.0-10.0) Eosinophils (%) (Auto) 3.1 % (0.0-3.0) H Basophils (%) (Auto) 0.9 % (0.0-2.0) Erythrocyte Sedimentation Rate 74 MM/HR (0-30) H Sodium Level 140 MMOL/L (136-145) Potassium Level 4.3 MMOL/L (3.5-5.1) Chloride Level 106 MMOL/L (98-107) Carbon Dioxide Level 31 MMOL/L (21-32) Anion Gap 3 mmol/L (5-15) L Blood Urea Nitrogen 25 mg/dL (7-18) H Creatinine 1.2 MG/DL (0.55-1.30) Estimat Glomerular Filtration Rate mL/min (>60) Glucose Level 117 MG/DL (74-106) H Calcium Level 8.3 MG/DL (8.5-10.1) L Phosphorus Level 2.6 MG/DL (2.5-4.9) Magnesium Level 2.3 MG/DL (1.8-2.4) Total Bilirubin 1.5 MG/DL (0.2-1.0) H Direct Bilirubin 0.5 MG/DL (0.0-0.3) H Aspartate Amino Transf (AST/SGOT) 25 U/L (15-37) Alanine Aminotransferase (ALT/SGPT) 16 U/L (12-78) Alkaline Phosphatase 174 U/L (46-116) H Troponin I 0.045 ng/mL (0.000-0.056) C-Reactive Protein, Quantitative 2.1 mg/dL (0.00-0.90) H Pro-B-Type Natriuretic Peptide 2833 pg/mL (0-125) H Total Protein 7.3 G/DL (6.4-8.2) Albumin 3.0 G/DL (3.4-5.0) L Globulin 4.3 g/dL Albumin/Globulin Ratio 0.7 (1.0-2.7) L Digoxin Level 1.4 NG/ML (0.9-2.0) Intake and Output 08/10/19 08/11/19 18:59 06:59 Intake Total 435 ml Balance 435 ml Intake Oral 360 ml IV Total 75 ml # Voids 5 1 # Bowel Movements 2 Objective General Appearance: WD/WN, no apparent distress, alert EENT: PERRL/EOMI, normal ENT inspection Neck: non-tender, normal alignment, supple, normal inspection Cardiovascular: normal peripheral pulses, normal rate, regular rhythm, no gallop/murmur, no JVD Respiratory/Chest: chest wall non-tender, lungs clear, normal breath sounds, no respiratory distress, no accessory muscle use Abdomen: normal bowel sounds, decreased bowel sounds, guarding, tender Extremities: normal range of motion, non-tender Neurologic: track oiler II-XII 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, no motor/sensory deficits Skin: normal pigmentation, warm/dry Assessment/Plan Problem List: (1) Type II diabetes mellitus Assessment & Plan: continue novolog sliding scale. (2) Hemoperitoneum, nontraumatic Assessment & Plan: Due to coagulopathy due to coumadin. Hold coumadin. Follow hemoglobin. Non surgical-see surgery note=Dr Soria. (3) Epigastric pain (4) Nausea Assessment & Plan: tolerating clear liquid diet-see GI note=Dr Pimentel (5) HTN (hypertension) (6) Atrial fibrillation Assessment & Plan: Hold digoxin due to toxicity per cardiology (7) Coagulopathy Assessment & Plan: Hold coumadin secondary to hemoperitoneum. (8) Cerebral vascular disease (9) Pacemaker Assessment & Plan: EP Cardiology=Dr Carmona. Await pacemaker interrogation (10) Status post mitral valve replacement (11) Renal failure Assessment & Plan: Followed by nephrology =Dr Rivera (12) CHF (congestive heart failure) Assessment & Plan: BNP>2000. Cardiology consult=Sher Frazier MD Aug 11, 2019 17:20
--- NOTE | 2019-08-11 19:46 | NUR ---
HAND-OFF: Report given to Hanane Sung. PAtient stable. Plan of care endorsed.
--- NOTE | 2019-08-11 19:50 | NUR ---
NURSE NOTES: Received patient from BELINDA Huynh, stable condition, AOx3, denies pain, resting comfortably, Iv right forearm g20, patent, asymptomatic, bed low&locked ,side rails up x3, call light within reach, will continue to monitor and reassess
[2019-08-11 22:18] VITALS: BP 125/57
[2019-08-12 00:17] VITALS: BP 121/84
[2019-08-12 04:00] VITALS: BP 135/59
[2019-08-12] MEDS: NovoLOG Insulin Flexpen SUBQ SCH ×4 (06:35→22:47)
[2019-08-12 07:20] LABS: BASOPHILS % (AUTO) 0.6 % (0.0-2.0); EOSINOPHILS % (AUTO) 2.2 % (0.0-3.0); HEMATOCRIT 26.5 % (37.0-47.0); HEMOGLOBIN 8.5 G/DL (12.0-16.0); LYMPHOCYTES % (AUTO) 14.1 % (20.0-45.0); MEAN CORPUSCULAR VOLUME 90 FL (80-99); MONOCYTES % (AUTO) 10.6 % (1.0-10.0); NEUTROPHILS % (AUTO) 72.4 % (45.0-75.0); PLATELET COUNT 125 K/UL (150-450); RED BLOOD COUNT 2.93 M/UL (4.20-5.40); RED CELL DISTRIBUTION WIDTH 16.5 % (11.6-14.8); WHITE BLOOD COUNT 4.3 K/UL (4.8-10.8)
--- NOTE | 2019-08-12 07:28 | NUR ---
HAND-OFF: Report given to BELINDA Peterson, patient in stable condition, plan of care endorsed.
[2019-08-12 07:37] LABS: PHOSPHORUS 2.6 MG/DL (2.5-4.9)
[2019-08-12 07:49] LABS: ALANINE AMINOTRANSFERASE 14 U/L (12-78); ALBUMIN 3.1 G/DL (3.4-5.0); ALBUMIN/GLOBULIN RATIO 0.7 (1.0-2.7); ALKALINE PHOSPHATASE 188 U/L (46-116); ANION GAP 8 mmol/L (5-15); ASPARTATE AMINO TRANSFERASE 26 U/L (15-37); BILIRUBIN,DIRECT 0.7 MG/DL (0.0-0.3); BILIRUBIN,TOTAL 1.8 MG/DL (0.2-1.0); BLOOD UREA NITROGEN 27 mg/dL (7-18); CALCIUM 8.2 MG/DL (8.5-10.1); CARBON DIOXIDE 25 MMOL/L (21-32); CHLORIDE 108 MMOL/L (98-107); CREATININE 1.3 MG/DL (0.55-1.30); POTASSIUM 4.5 MMOL/L (3.5-5.1); SODIUM 141 MMOL/L (136-145)
--- NOTE | 2019-08-12 08:08 | Nephrology Progress Note ---
Assessment/Plan Problem List: (1) Acute renal failure Assessment: resolved (2) Diabetic nephropathy (3) Diabetes mellitus (4) HTN (hypertension) (5) Pacemaker Assessment Renal failure ? Acute on chronic Pelvic hemoperitoneum. Epigastric pain. Nausea. Hypertension. Diabetes type 2. Atrial fibrillation. Hypercholesterolemia. Cerebrovascular disease. 1990 Plan folic acid- cytomel- Slow Hydrate- Anemia avila- transfused monitor renal parameters 2D echo Pending Kidney [facility] medical Renal disease med surg- DC planning Subjective ROS Limited/Unobtainable: No Constitutional: Reports: malaise Objective Objective Last 24 Hour Vital Signs Date Time Temp Pulse Resp B/P (MAP) Pulse Ox O2 Delivery O2 Flow Rate FiO2 08/12/19 04:00 89 08/12/19 04:00 97.7 68 17 135/59 (84) 98 08/12/19 00:17 98.0 71 17 121/84 (96) 95 08/12/19 00:00 70 08/11/19 22:20 71 125/57 08/11/19 22:19 125/57 08/11/19 22:18 71 18 125/57 (79) 95 08/11/19 21:00 Room Air 08/11/19 20:00 77 08/11/19 17:03 110/55 08/11/19 16:00 74 08/11/19 16:00 97.7 80 20 110/55 (73) 97 08/11/19 12:00 73 08/11/19 12:00 98.0 78 18 97/44 (61) 97 08/11/19 09:44 75 121/54 08/11/19 09:44 121/54 08/11/19 09:44 121/54 08/11/19 09:00 Room Air Intake and Output 08/11/19 08/12/19 19:00 07:00 Intake Total 360 ml Balance 360 ml Intake Oral 360 ml # Voids 3 2 # Bowel Movements 1 Current Medications Medications (Trade) Dose Ordered Sig/Grisel Route PRN Reason Start Time Stop Time Status Last Admin Dose Admin Acetaminophen (Tylenol) 650 mg Q4H PRN ORAL fever 08/08/19 17:30 09/07/19 17:29 Allopurinol (Allopurinol) 150 mg DAILY ORAL 08/12/19 09:00 09/11/19 08:59 Carvedilol (Coreg) 12.5 mg EVERY 12 HOURS ORAL 08/10/19 21:00 09/09/19 20:59 08/11/19 22:20 Dextrose (Dextrose 50%) 25 ml Q30M PRN IV Hypoglycemia 08/08/19 17:30 09/07/19 17:29 Dextrose (Dextrose 50%) 50 ml Q30M PRN IV Hypoglycemia 08/08/19 17:30 09/07/19 17:29 Docusate Sodium (Colace) 100 mg TID ORAL 08/10/19 13:00 09/08/19 17:59 08/11/19 17:03 Folic Acid (Folate) 2 mg DAILY ORAL 08/10/19 10:15 09/09/19 10:14 08/11/19 09:44 Hydralazine HCl (Apresoline) 10 mg Q12HR ORAL 08/11/19 21:00 09/09/19 17:59 08/11/19 22:19 Insulin Aspart (NovoLOG) BEFORE MEALS AND HS SUBQ 08/08/19 21:00 09/07/19 20:59 08/12/19 06:35 Isosorbide Dinitrate (Isordil) 10 mg BID ORAL 08/10/19 18:00 09/09/19 17:59 08/11/19 17:03 Liothyronine Sodium (Cytomel) 5 mcg DAILY ORAL 08/11/19 09:00 09/10/19 08:59 08/11/19 09:43 Nitroglycerin (Ntg) 0.4 mg Q5M X 3 DOSES PRN SL Prn Chest Pain 08/08/19 17:30 09/07/19 17:29 Ondansetron HCl (Zofran) 4 mg Q6H PRN IVP Nausea & Vomiting 08/08/19 17:30 09/07/19 17:29 Pantoprazole (Protonix) 40 mg BID ORAL 08/09/19 18:00 09/08/19 17:59 08/11/19 17:03 Polyethylene Glycol (Miralax) 17 gm HSPRN PRN ORAL Constipation 08/08/19 21:00 09/07/19 20:59 Temazepam (Restoril) 15 mg HSPRN PRN ORAL Insomnia 08/08/19 21:00 08/15/19 20:59 Laboratory Tests 08/12/19 05:28: White Blood Count 4.3L, Red Blood Count 2.93L, Hemoglobin 8.5L, Hematocrit 26.5L , Mean Corpuscular Volume 90, Mean Corpuscular Hemoglobin 29.0, Mean Corpuscular Hemoglobin Concent 32.2, Red Cell Distribution Width 16.5H, Platelet Count 125L, Mean Platelet Volume 6.7, Neutrophils (%) (Auto) 72.4, Lymphocytes (%) (Auto) 14.1L, Monocytes (%) (Auto) 10.6H, Eosinophils (%) (Auto ) 2.2, Basophils (%) (Auto) 0.6, Prothrombin Time 11.1, Prothromb Time International Ratio 1.0, Activated Partial Thromboplast Time 32, Sodium Level 141, Potassium Level 4.5, Chloride Level 108H, Carbon Dioxide Level 25, Anion Gap 8, Blood Urea Nitrogen 27H, Creatinine 1.3, Estimat Glomerular Filtration Rate , Glucose Level 134H, Calcium Level 8.2L, Phosphorus Level 2.6, Magnesium Level 2.5H, Total Bilirubin 1.8H, Direct Bilirubin 0.7H, Aspartate Amino Transf (AST/SGOT) 26, Alanine Aminotransferase (ALT/SGPT) 14, Alkaline Phosphatase 188H , Total Protein 7.5, Albumin 3.1L, Globulin 4.4, Albumin/Globulin Ratio 0.7L Height (Feet): 5 Height (Inches): 2.00 Weight (Pounds): 111 General Appearance: no apparent distress Cardiovascular: normal rate Respiratory/Chest: lungs clear Abdomen: soft Objective no change Kirby Rivera MD Aug 12, 2019 08:08
[2019-08-12 08:21] VITALS: BP 139/66
[2019-08-12] MEDS: Carvedilol 12.5mg tab ORAL SCH ×2 (09:10→23:15)
[2019-08-12] MEDS: Liothyronine 5mcg tab ORAL SCH (09:10)
[2019-08-12] MEDS: Docusate 100mg cap ORAL SCH ×3 (09:12→18:13)
[2019-08-12] MEDS: HydrALAZINE 10mg Tab ORAL SCH ×2 (09:13→23:15)
--- NOTE | 2019-08-12 09:41 | NUR ---
NURSE NOTES: recvd pt. Pt is AOX4, BELGIAN SPEAKING. PT IS ON ROOM AIR WITH NO SIGN OF SOB OR RESP DISTRESS. pT IS V-PACED IN THE 80'S. NO C/O PAIN. LEFT HAND 20G IV SITE IS C/D/I. BED IN LOWEST LOCKED POSITION, CALL LIGHT WITHIN REACH, WILL CONTINUE WITH PLAN OF CARE
--- NOTE | 2019-08-12 10:32 | General Progress Note ---
Assessment/Plan Status: stable Assessment/Plan: (1) Anemia ICD Codes: D64.9 - Anemia, unspecified SNOMED: 842636931 (2) Iron deficiency ICD Codes: E61.1 - Iron deficiency SNOMED: 35199823 (3) Hemoperitoneum, nontraumatic ICD Codes: K66.1 - Hemoperitoneum SNOMED: 70615991 (4) Epigastric pain ICD Codes: R10.13 - Epigastric pain SNOMED: 64478334 (5) Abdominal pain ICD Codes: R10.9 - Unspecified abdominal pain SNOMED: 16555660 Assessment/Plan No plans for any GI procedures at this time Follow-up surgical recommendations >> no noted surgical intervention at this time Follow-up cardiology recommendations 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, knowledge engineer KUB negative Advance diet Bowel regimen of Colace and MiraLAX Continue PPI Sent for fecal occult blood stool to rule out any GI bleed Outpatient GI procedure Subjective ROS Limited/Unobtainable: Yes Allergies: Coded Allergies: No Known Allergies (Unverified , 09/17/16) Objective Last 24 Hour Vital Signs Date Time Temp Pulse Resp B/P (MAP) Pulse Ox O2 Delivery O2 Flow Rate FiO2 08/12/19 09:13 139/66 08/12/19 09:12 139/66 08/12/19 09:10 70 139/66 08/12/19 08:21 98.6 70 18 139/66 (90) 96 08/12/19 08:13 Room Air 08/12/19 08:00 82 08/12/19 04:00 89 08/12/19 04:00 97.7 68 17 135/59 (84) 98 08/12/19 00:17 98.0 71 17 121/84 (96) 95 08/12/19 00:00 70 08/11/19 22:20 71 125/57 08/11/19 22:19 125/57 08/11/19 22:18 71 18 125/57 (79) 95 08/11/19 21:00 Room Air 08/11/19 20:00 77 08/11/19 17:03 110/55 08/11/19 16:00 74 08/11/19 16:00 97.7 80 20 110/55 (73) 97 08/11/19 12:00 73 08/11/19 12:00 98.0 78 18 97/44 (61) 97 Intake and Output 08/11/19 08/12/19 19:00 07:00 Intake Total 360 ml Balance 360 ml Intake Oral 360 ml # Voids 3 2 # Bowel Movements 1 Laboratory Tests 08/12/19 05:28: White Blood Count 4.3L, Red Blood Count 2.93L, Hemoglobin 8.5L, Hematocrit 26.5L , Mean Corpuscular Volume 90, Mean Corpuscular Hemoglobin 29.0, Mean Corpuscular Hemoglobin Concent 32.2, Red Cell Distribution Width 16.5H, Platelet Count 125L, Mean Platelet Volume 6.7, Neutrophils (%) (Auto) 72.4, Lymphocytes (%) (Auto) 14.1L, Monocytes (%) (Auto) 10.6H, Eosinophils (%) (Auto ) 2.2, Basophils (%) (Auto) 0.6, Prothrombin Time 11.1, Prothromb Time International Ratio 1.0, Activated Partial Thromboplast Time 32, Sodium Level 141, Potassium Level 4.5, Chloride Level 108H, Carbon Dioxide Level 25, Anion Gap 8, Blood Urea Nitrogen 27H, Creatinine 1.3, Estimat Glomerular Filtration Rate , Glucose Level 134H, Calcium Level 8.2L, Phosphorus Level 2.6, Magnesium Level 2.5H, Total Bilirubin 1.8H, Direct Bilirubin 0.7H, Aspartate Amino Transf (AST/SGOT) 26, Alanine Aminotransferase (ALT/SGPT) 14, Alkaline Phosphatase 188H , Total Protein 7.5, Albumin 3.1L, Globulin 4.4, Albumin/Globulin Ratio 0.7L Height (Feet): 5 Height (Inches): 2.00 Weight (Pounds): 102 General Appearance: alert EENT: normal ENT inspection Neck: supple Cardiovascular: normal rate Respiratory/Chest: decreased breath sounds Abdomen: normal bowel sounds, non tender, soft Extremities: non-tender Charan Pimentel MD Aug 12, 2019 10:32
[2019-08-12 12:00] VITALS: BP 102/49
--- NOTE | 2019-08-12 12:00 | NUR ---
CASE MANAGEMENT: REVIEW 08/12/19 SI: HTN /PELVIC HEMOPERITONEUM / AFIB WITH RVR 98.6 70 18 139/66 96% ON RA CA+ 8.2 MG 2.5 WBC 4.7 H/H 8.5/26.5 BUN 27 IS: PROTONIX BID ISORDIL PO BID COREG PO BID= NOVOLOG SQ AC&HS HYDRALAZINE PO BID 2E TELE UNIT DCP: HOME WHEN MEDICALLY CLEARED PLAN: TRANSFER TO MED SURG CARDIO TO INTERROGATE PACEMAKER
--- NOTE | 2019-08-12 13:21 | Pulmonology Progress Note ---
Assessment/Plan Problems: (1) Intra abdominal hemorrhage (2) Coagulopathy (3) Acute renal failure (4) Atrial fibrillation (5) HTN (hypertension) (6) Abdominal pain (7) Pacemaker (8) Aortic valve replaced (9) Status post mitral valve replacement (10) Cerebral vascular disease (11) Diabetes mellitus (12) Chronic anticoagulation Assessment/Plan h/h stable, off anticoagulation When to restart anticoagulation? Blood sugar fairly controlled, symptomatic treatment v-paced, pacemaker will be interrogated check electrolytes symptomatic treatment Subjective ROS Limited/Unobtainable: No Constitutional: Reports: no symptoms HEENT: Repors: no symptoms Allergies: Coded Allergies: No Known Allergies (Unverified , 09/17/16) Objective Last 24 Hour Vital Signs Date Time Temp Pulse Resp B/P (MAP) Pulse Ox O2 Delivery O2 Flow Rate FiO2 08/12/19 12:00 74 08/12/19 12:00 98.2 69 18 102/49 (66) 95 08/12/19 09:13 139/66 08/12/19 09:12 139/66 08/12/19 09:10 70 139/66 08/12/19 08:21 98.6 70 18 139/66 (90) 96 08/12/19 08:13 Room Air 08/12/19 08:00 82 08/12/19 04:00 89 08/12/19 04:00 97.7 68 17 135/59 (84) 98 08/12/19 00:17 98.0 71 17 121/84 (96) 95 08/12/19 00:00 70 08/11/19 22:20 71 125/57 08/11/19 22:19 125/57 08/11/19 22:18 71 18 125/57 (79) 95 08/11/19 21:00 Room Air 08/11/19 20:00 77 08/11/19 17:03 110/55 08/11/19 16:00 74 08/11/19 16:00 97.7 80 20 110/55 (73) 97 Intake and Output 08/11/19 08/12/19 19:00 07:00 Intake Total 360 ml Balance 360 ml Intake Oral 360 ml # Voids 3 2 # Bowel Movements 1 General Appearance: WD/WN HEENT: normocephalic, atraumatic Respiratory/Chest: chest wall non-tender, lungs clear Breasts: no masses Cardiovascular: normal peripheral pulses, normal rate Abdomen: normal bowel sounds, soft, non tender Genitourinary: normal external genitalia Extremities: no cyanosis Skin: no rash 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 Laboratory Tests 08/12/19 05:28: White Blood Count 4.3L, Red Blood Count 2.93L, Hemoglobin 8.5L, Hematocrit 26.5L , Mean Corpuscular Volume 90, Mean Corpuscular Hemoglobin 29.0, Mean Corpuscular Hemoglobin Concent 32.2, Red Cell Distribution Width 16.5H, Platelet Count 125L, Mean Platelet Volume 6.7, Neutrophils (%) (Auto) 72.4, Lymphocytes (%) (Auto) 14.1L, Monocytes (%) (Auto) 10.6H, Eosinophils (%) (Auto ) 2.2, Basophils (%) (Auto) 0.6, Prothrombin Time 11.1, Prothromb Time International Ratio 1.0, Activated Partial Thromboplast Time 32, Sodium Level 141, Potassium Level 4.5, Chloride Level 108H, Carbon Dioxide Level 25, Anion Gap 8, Blood Urea Nitrogen 27H, Creatinine 1.3, Estimat Glomerular Filtration Rate , Glucose Level 134H, Calcium Level 8.2L, Phosphorus Level 2.6, Magnesium Level 2.5H, Total Bilirubin 1.8H, Direct Bilirubin 0.7H, Aspartate Amino Transf (AST/SGOT) 26, Alanine Aminotransferase (ALT/SGPT) 14, Alkaline Phosphatase 188H , Total Protein 7.5, Albumin 3.1L, Globulin 4.4, Albumin/Globulin Ratio 0.7L Current Medications Medications (Trade) Dose Ordered Sig/Grisel Route PRN Reason Start Time Stop Time Status Last Admin Dose Admin Acetaminophen (Tylenol) 650 mg Q4H PRN ORAL fever 08/08/19 17:30 09/07/19 17:29 Allopurinol (Allopurinol) 150 mg DAILY ORAL 08/12/19 09:00 09/11/19 08:59 08/12/19 09:13 Carvedilol (Coreg) 12.5 mg EVERY 12 HOURS ORAL 08/10/19 21:00 09/09/19 20:59 08/12/19 09:10 Dextrose (Dextrose 50%) 25 ml Q30M PRN IV Hypoglycemia 08/08/19 17:30 09/07/19 17:29 Dextrose (Dextrose 50%) 50 ml Q30M PRN IV Hypoglycemia 08/08/19 17:30 09/07/19 17:29 Docusate Sodium (Colace) 100 mg TID ORAL 08/10/19 13:00 09/08/19 17:59 08/12/19 09:12 Folic Acid (Folate) 2 mg DAILY ORAL 08/10/19 10:15 09/09/19 10:14 08/12/19 09:13 Hydralazine HCl (Apresoline) 10 mg Q12HR ORAL 08/11/19 21:00 09/09/19 17:59 08/12/19 09:13 Insulin Aspart (NovoLOG) BEFORE MEALS AND HS SUBQ 08/08/19 21:00 09/07/19 20:59 08/12/19 06:35 Isosorbide Dinitrate (Isordil) 10 mg BID ORAL 08/10/19 18:00 09/09/19 17:59 08/12/19 09:12 Liothyronine Sodium (Cytomel) 5 mcg DAILY ORAL 08/11/19 09:00 09/10/19 08:59 08/12/19 09:10 Nitroglycerin (Ntg) 0.4 mg Q5M X 3 DOSES PRN SL Prn Chest Pain 08/08/19 17:30 09/07/19 17:29 Ondansetron HCl (Zofran) 4 mg Q6H PRN IVP Nausea & Vomiting 08/08/19 17:30 09/07/19 17:29 Pantoprazole (Protonix) 40 mg BID ORAL 08/09/19 18:00 09/08/19 17:59 08/12/19 09:12 Polyethylene Glycol (Miralax) 17 gm HSPRN PRN ORAL Constipation 08/08/19 21:00 09/07/19 20:59 Temazepam (Restoril) 15 mg HSPRN PRN ORAL Insomnia 08/08/19 21:00 08/15/19 20:59 Remedios Albarran MD Aug 12, 2019 13:21
--- NOTE | 2019-08-12 13:58 | Cardiac Electrophysiology PN ---
Assessment/Plan Assessment/Plan 1. Paroxysmal atrial fibrillation, currently AV paced on digoxin 0.125 mg daily and metoprolol 50 mg b.i.d . digoxin level is 2. Off anticoagulation for peritoneal bleeding 2. Status post Biotronik DDD pacemaker implantation by me in 2017 with Nl fx 3. History of hypertension. Continue current medications. 4. 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 Now on Dig, Coreg, Hydralazine and isordil May need pacer upgrade to ICD 5. Diabetes. 6. CVA in 1990. 7. Status post aortic valve replacement in 1985 and then again in 1995. 8. Abdominal pain, currently has improved due to bleeding peritoneum with moderate organized clot in the cul-de-sac, possibly from ruptured ovarian cyst or mass. Further evaluation by Dr. Soria. KANDY RN Subjective Subjective Alert NAD. No CP or SOB. AV Paced Objective Last 24 Hour Vital Signs Date Time Temp Pulse Resp B/P (MAP) Pulse Ox O2 Delivery O2 Flow Rate FiO2 08/12/19 12:00 74 08/12/19 12:00 98.2 69 18 102/49 (66) 95 08/12/19 09:13 139/66 08/12/19 09:12 139/66 08/12/19 09:10 70 139/66 08/12/19 08:21 98.6 70 18 139/66 (90) 96 08/12/19 08:13 Room Air 08/12/19 08:00 82 08/12/19 04:00 89 08/12/19 04:00 97.7 68 17 135/59 (84) 98 08/12/19 00:17 98.0 71 17 121/84 (96) 95 08/12/19 00:00 70 08/11/19 22:20 71 125/57 08/11/19 22:19 125/57 08/11/19 22:18 71 18 125/57 (79) 95 08/11/19 21:00 Room Air 08/11/19 20:00 77 08/11/19 17:03 110/55 08/11/19 16:00 74 08/11/19 16:00 97.7 80 20 110/55 (73) 97 Intake and Output 08/11/19 08/12/19 19:00 07:00 Intake Total 360 ml Balance 360 ml Intake Oral 360 ml # Voids 3 2 # Bowel Movements 1 Laboratory Tests Test 08/12/19 05:28 White Blood Count 4.3 K/UL (4.8-10.8) L Red Blood Count 2.93 M/UL (4.20-5.40) L Hemoglobin 8.5 G/DL (12.0-16.0) L Hematocrit 26.5 % (37.0-47.0) L Mean Corpuscular Volume 90 FL (80-99) Mean Corpuscular Hemoglobin 29.0 PG (27.0-31.0) Mean Corpuscular Hemoglobin Concent 32.2 G/DL (32.0-36.0) Red Cell Distribution Width 16.5 % (11.6-14.8) H Platelet Count 125 K/UL (150-450) L Mean Platelet Volume 6.7 FL (6.5-10.1) Neutrophils (%) (Auto) 72.4 % (45.0-75.0) Lymphocytes (%) (Auto) 14.1 % (20.0-45.0) L Monocytes (%) (Auto) 10.6 % (1.0-10.0) H Eosinophils (%) (Auto) 2.2 % (0.0-3.0) Basophils (%) (Auto) 0.6 % (0.0-2.0) Prothrombin Time 11.1 SEC (9.30-11.50) Prothromb Time International Ratio 1.0 (0.9-1.1) Activated Partial Thromboplast Time 32 SEC (23-33) Sodium Level 141 MMOL/L (136-145) Potassium Level 4.5 MMOL/L (3.5-5.1) Chloride Level 108 MMOL/L (98-107) H Carbon Dioxide Level 25 MMOL/L (21-32) Anion Gap 8 mmol/L (5-15) Blood Urea Nitrogen 27 mg/dL (7-18) H Creatinine 1.3 MG/DL (0.55-1.30) Estimat Glomerular Filtration Rate mL/min (>60) Glucose Level 134 MG/DL (74-106) H Calcium Level 8.2 MG/DL (8.5-10.1) L Phosphorus Level 2.6 MG/DL (2.5-4.9) Magnesium Level 2.5 MG/DL (1.8-2.4) H Total Bilirubin 1.8 MG/DL (0.2-1.0) H Direct Bilirubin 0.7 MG/DL (0.0-0.3) H Aspartate Amino Transf (AST/SGOT) 26 U/L (15-37) Alanine Aminotransferase (ALT/SGPT) 14 U/L (12-78) Alkaline Phosphatase 188 U/L (46-116) H Total Protein 7.5 G/DL (6.4-8.2) Albumin 3.1 G/DL (3.4-5.0) L Globulin 4.4 g/dL Albumin/Globulin Ratio 0.7 (1.0-2.7) L Objective HEAD AND NECK: No JVD. LUNGS: Clear. CARDIOVASCULAR: Shows metallic S2 with soft systolic murmur. Sternotomy is intact. Pacemaker in the left subclavian. ABDOMEN: Soft. EXTREMITIES: With no pitting edema. Osmany Carmona MD Aug 12, 2019 13:58
[2019-08-12 16:00] VITALS: BP 115/47
--- NOTE | 2019-08-12 16:15 | Internal Med Progress Note ---
Subjective Physician Name Kobi Real Attending Physician Kobi Real MD Current Medications Medications (Trade) Dose Ordered Sig/Grisel Route PRN Reason Start Time Stop Time Status Last Admin Dose Admin Acetaminophen (Tylenol) 650 mg Q4H PRN ORAL fever 08/08/19 17:30 09/07/19 17:29 Allopurinol (Allopurinol) 150 mg DAILY ORAL 08/12/19 09:00 09/11/19 08:59 08/12/19 09:13 Carvedilol (Coreg) 12.5 mg EVERY 12 HOURS ORAL 08/10/19 21:00 09/09/19 20:59 08/12/19 09:10 Dextrose (Dextrose 50%) 25 ml Q30M PRN IV Hypoglycemia 08/08/19 17:30 09/07/19 17:29 Dextrose (Dextrose 50%) 50 ml Q30M PRN IV Hypoglycemia 08/08/19 17:30 09/07/19 17:29 Docusate Sodium (Colace) 100 mg TID ORAL 08/10/19 13:00 09/08/19 17:59 08/12/19 13:22 Folic Acid (Folate) 2 mg DAILY ORAL 08/10/19 10:15 09/09/19 10:14 08/12/19 09:13 Hydralazine HCl (Apresoline) 10 mg Q12HR ORAL 08/11/19 21:00 09/09/19 17:59 08/12/19 09:13 Insulin Aspart (NovoLOG) BEFORE MEALS AND HS SUBQ 08/08/19 21:00 09/07/19 20:59 08/12/19 06:35 Isosorbide Dinitrate (Isordil) 10 mg BID ORAL 08/10/19 18:00 09/09/19 17:59 08/12/19 09:12 Liothyronine Sodium (Cytomel) 5 mcg DAILY ORAL 08/11/19 09:00 09/10/19 08:59 08/12/19 09:10 Nitroglycerin (Ntg) 0.4 mg Q5M X 3 DOSES PRN SL Prn Chest Pain 08/08/19 17:30 09/07/19 17:29 Ondansetron HCl (Zofran) 4 mg Q6H PRN IVP Nausea & Vomiting 08/08/19 17:30 09/07/19 17:29 Pantoprazole (Protonix) 40 mg BID ORAL 08/09/19 18:00 09/08/19 17:59 08/12/19 09:12 Polyethylene Glycol (Miralax) 17 gm HSPRN PRN ORAL Constipation 08/08/19 21:00 09/07/19 20:59 Temazepam (Restoril) 15 mg HSPRN PRN ORAL Insomnia 08/08/19 21:00 08/15/19 20:59 Allergies: Coded Allergies: No Known Allergies (Unverified , 09/17/16) Subjective awake, alert, responsive, No CP or SOB, Less abdominal pain. Objective Last Vital Signs Date Time Temp Pulse Resp B/P (MAP) Pulse Ox O2 Delivery O2 Flow Rate FiO2 08/12/19 12:00 74 08/12/19 12:00 98.2 18 102/49 (66) 95 08/12/19 08:13 Room Air 08/09/19 09:00 Laboratory Tests Test 08/12/19 05:28 White Blood Count 4.3 K/UL (4.8-10.8) L Red Blood Count 2.93 M/UL (4.20-5.40) L Hemoglobin 8.5 G/DL (12.0-16.0) L Hematocrit 26.5 % (37.0-47.0) L Mean Corpuscular Volume 90 FL (80-99) Mean Corpuscular Hemoglobin 29.0 PG (27.0-31.0) Mean Corpuscular Hemoglobin Concent 32.2 G/DL (32.0-36.0) Red Cell Distribution Width 16.5 % (11.6-14.8) H Platelet Count 125 K/UL (150-450) L Mean Platelet Volume 6.7 FL (6.5-10.1) Neutrophils (%) (Auto) 72.4 % (45.0-75.0) Lymphocytes (%) (Auto) 14.1 % (20.0-45.0) L Monocytes (%) (Auto) 10.6 % (1.0-10.0) H Eosinophils (%) (Auto) 2.2 % (0.0-3.0) Basophils (%) (Auto) 0.6 % (0.0-2.0) Prothrombin Time 11.1 SEC (9.30-11.50) Prothromb Time International Ratio 1.0 (0.9-1.1) Activated Partial Thromboplast Time 32 SEC (23-33) Sodium Level 141 MMOL/L (136-145) Potassium Level 4.5 MMOL/L (3.5-5.1) Chloride Level 108 MMOL/L (98-107) H Carbon Dioxide Level 25 MMOL/L (21-32) Anion Gap 8 mmol/L (5-15) Blood Urea Nitrogen 27 mg/dL (7-18) H Creatinine 1.3 MG/DL (0.55-1.30) Estimat Glomerular Filtration Rate mL/min (>60) Glucose Level 134 MG/DL (74-106) H Calcium Level 8.2 MG/DL (8.5-10.1) L Phosphorus Level 2.6 MG/DL (2.5-4.9) Magnesium Level 2.5 MG/DL (1.8-2.4) H Total Bilirubin 1.8 MG/DL (0.2-1.0) H Direct Bilirubin 0.7 MG/DL (0.0-0.3) H Aspartate Amino Transf (AST/SGOT) 26 U/L (15-37) Alanine Aminotransferase (ALT/SGPT) 14 U/L (12-78) Alkaline Phosphatase 188 U/L (46-116) H Total Protein 7.5 G/DL (6.4-8.2) Albumin 3.1 G/DL (3.4-5.0) L Globulin 4.4 g/dL Albumin/Globulin Ratio 0.7 (1.0-2.7) L Intake and Output 08/11/19 08/12/19 19:00 07:00 Intake Total 360 ml Balance 360 ml Intake Oral 360 ml # Voids 3 2 # Bowel Movements 1 Objective General: No acute distress, awake and alert HEENT: NCAT, sclera anicteric, PERRL, EOMI. Neck: Supple, no significant jugular venous distention, Lungs: Good inspiratory effort, clear to auscultation bilaterally, no Wheeze or Rales. Heart: Irregular rate and rhythm, normal S1/S2, + CEM, Pacemaker @ [facility]. Abdomen: soft, nontender, nondistended. Normoactive bowel sounds. / Rectal: Refused and deferred. Extremities: No Cyanosis , clubbing or edema. Neuro: A&O x 3, Able to move all extremities Skin: warm, no rashes or lesions Psych: Normal mood and affect Assessment/Plan Assessment/Plan (1) Type II diabetes mellitus Assessment & Plan: continue novolog sliding scale. (2) Hemoperitoneum, nontraumatic Assessment & Plan: Due to coagulopathy due to coumadin. Hold coumadin. Follow hemoglobin. Non surgical-see surgery note=Dr Soria. (3) Epigastric pain (4) Nausea Assessment & Plan: tolerating clear liquid diet-see GI note=Dr Pimentel (5) HTN (hypertension) (6) Atrial fibrillation Assessment & Plan: Hold digoxin due to toxicity per cardiology (7) Coagulopathy Assessment & Plan: Hold coumadin secondary to hemoperitoneum. (8) Cerebral vascular disease (9) Pacemaker Assessment & Plan: EP Cardiology=Dr Carmona. Await pacemaker interrogation (10) Status post mitral valve replacement (11) Renal failure Assessment & Plan: Followed by nephrology =Dr Rivera (12) CHF (congestive heart failure) Assessment & Plan: BNP>2000. Cardiology consult=Dr Carmona Hold Coumadin OOB to Chair Monitor Labs Kobi Real MD Aug 12, 2019 16:15
--- NOTE | 2019-08-12 19:48 | NUR ---
NURSE NOTES: Received patient from BELINDA Peterson, stable condition, AOx3, denies pain, resting comfortably, Iv right hand g20, patent, asymptomatic, bed low&locked ,side rails up x3, call light within reach, will continue to monitor and reassess.Niece at bedside
[2019-08-12 20:00] VITALS: BP 119/59
--- NOTE | 2019-08-12 21:00 | NUR ---
NURSE NOTES: Transferred patient to , room 403-2, via hospital bed, in stable condition, AOx3, denies pain at this time. Report given to BELINDA Medrano, cardiac monitor technician removed, belonging checklist verified, orders transferred. Bed low&locked, side rails upx3, call light within reach.
--- NOTE | 2019-08-12 22:24 | Surgery Progress Note ---
Surgery Progress Note Subjective Additional Comments no acute events comfortable no pain no n/v/f/c no complaints tolerating diet +BM okay to resume anticoagulation Objective Last 24 Hour Vital Signs Date Time Temp Pulse Resp B/P (MAP) Pulse Ox O2 Delivery O2 Flow Rate FiO2 08/12/19 21:00 Room Air 08/12/19 20:00 97.9 71 18 119/59 (79) 97 08/12/19 18:13 115/47 08/12/19 16:00 72 08/12/19 16:00 98.2 70 18 115/47 (69) 95 08/12/19 12:00 74 08/12/19 12:00 98.2 69 18 102/49 (66) 95 08/12/19 09:13 139/66 08/12/19 09:12 139/66 08/12/19 09:10 70 139/66 08/12/19 08:21 98.6 70 18 139/66 (90) 96 08/12/19 08:13 Room Air 08/12/19 08:00 82 08/12/19 04:00 89 08/12/19 04:00 97.7 68 17 135/59 (84) 98 08/12/19 00:17 98.0 71 17 121/84 (96) 95 08/12/19 00:00 70 I&O Intake and Output 08/11/19 08/12/19 18:59 06:59 Intake Total 360 ml Balance 360 ml Intake Oral 360 ml # Voids 3 2 # Bowel Movements 1 Dressing: other Wound: other Drains: other Cardiovascular: RSR Respiratory: clear Abdomen: soft, distended, non-tender, present bowel sounds Extremities: no edema, no tenderness, no cyanosis Laboratory Tests Test 08/12/19 05:28 White Blood Count 4.3 K/UL (4.8-10.8) L Red Blood Count 2.93 M/UL (4.20-5.40) L Hemoglobin 8.5 G/DL (12.0-16.0) L Hematocrit 26.5 % (37.0-47.0) L Mean Corpuscular Volume 90 FL (80-99) Mean Corpuscular Hemoglobin 29.0 PG (27.0-31.0) Mean Corpuscular Hemoglobin Concent 32.2 G/DL (32.0-36.0) Red Cell Distribution Width 16.5 % (11.6-14.8) H Platelet Count 125 K/UL (150-450) L Mean Platelet Volume 6.7 FL (6.5-10.1) Neutrophils (%) (Auto) 72.4 % (45.0-75.0) Lymphocytes (%) (Auto) 14.1 % (20.0-45.0) L Monocytes (%) (Auto) 10.6 % (1.0-10.0) H Eosinophils (%) (Auto) 2.2 % (0.0-3.0) Basophils (%) (Auto) 0.6 % (0.0-2.0) Prothrombin Time 11.1 SEC (9.30-11.50) Prothromb Time International Ratio 1.0 (0.9-1.1) Activated Partial Thromboplast Time 32 SEC (23-33) Sodium Level 141 MMOL/L (136-145) Potassium Level 4.5 MMOL/L (3.5-5.1) Chloride Level 108 MMOL/L (98-107) H Carbon Dioxide Level 25 MMOL/L (21-32) Anion Gap 8 mmol/L (5-15) Blood Urea Nitrogen 27 mg/dL (7-18) H Creatinine 1.3 MG/DL (0.55-1.30) Estimat Glomerular Filtration Rate mL/min (>60) Glucose Level 134 MG/DL (74-106) H Calcium Level 8.2 MG/DL (8.5-10.1) L Phosphorus Level 2.6 MG/DL (2.5-4.9) Magnesium Level 2.5 MG/DL (1.8-2.4) H Total Bilirubin 1.8 MG/DL (0.2-1.0) H Direct Bilirubin 0.7 MG/DL (0.0-0.3) H Aspartate Amino Transf (AST/SGOT) 26 U/L (15-37) Alanine Aminotransferase (ALT/SGPT) 14 U/L (12-78) Alkaline Phosphatase 188 U/L (46-116) H Total Protein 7.5 G/DL (6.4-8.2) Albumin 3.1 G/DL (3.4-5.0) L Globulin 4.4 g/dL Albumin/Globulin Ratio 0.7 (1.0-2.7) L Plan Problems: (1) Abdominal pain Assessment & Plan: 73-year-old female with abdominal pain likely due to intra- abdominal hemorrhage from coagulopathy. No trauma. H&H stable. Exam with mild tenderness but no peritonitis. No acute surgical invention recommend at this time Trend H&H We will follow with serial abdominal exams Reverse coagulopathy-appropriate now Vitamin K and FFP as needed Okay to start clear liquids Cardiology consultation Nephrology consultation worsening renal insufficiency IV fluids Advance diet Bowel regimen resume anticoag We will follow with recommendations Thank you for let me participate in patient's care (2) Intra abdominal hemorrhage Assessment & Plan: There is a severe cardiomegaly with biatrial chamber enlargement. 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 Pacemaker is present. There is a hiatal hernia. The lung bases are clear. The IVC and hepatic veins are markedly enlarged. There are generalized reticular densities throughout the mesentery and omentum nonspecific. There is some free fluid within the pelvis especially in the area of the cul-de-sac posterior to the uterus. The fluid has a areas of increased density, suspicious for blood. The nature of the hemoperitoneum is not known and the clinical correlation is needed. There are no signs of trauma or any history of such. There is a hypodensity within the left hemipelvis measuring about 1.7 cm which could be an ovarian cyst. Consider rupture of an ovarian cyst or mass is certainly possible. There may be 1 cm focus of fat (image #[id number]/series [id number]) in association with the left ovary and adjacent to the cystic focus suggesting the possibility of an ovarian dermoid. There is a calcified fibroid within the uterus measuring 1.6 cm. IMPRESSION: Pelvic hemoperitoneum with moderate organized clot in the cul-de-sac. Nature of this is not known but consider possibility of a ruptured ovarian cyst and/or mass. Question of an ovarian dermoid on the left side. Differential includes trauma, iatrogenic causes from recent surgery/procedures, coagulopathies, antiocoagulation Rx or other causes of hemoperitoneum. Calcified uterine fibroid. Severe cardiomyopathy with biatrial chamber enlargement. Distended IVC and hepatic veins probably on the basis of tricuspid regurgitation or right heart failure. Atherosclerotic vascular disease. Pacemaker. Hiatal hernia. Mesenteric nodularity and reticulation may be on the basis of ascites/ hemoperitoneum described earlier. Iain Soria Aug 12, 2019 22:24
[2019-08-12] MEDS ORDERED: Enoxaparin 60mg Inj SUBQ SCH (23:00)
[2019-08-13] VITALS: BP 132/47
--- NOTE | 2019-08-13 | NUR ---
NURSE NOTES: Pt came to the unit @ 2049 in stable condition, AOx3, yi speaking. Denies pain or discomfort at this time. Breathing on room air, no acute distress noted. Belonging checklist verified. Bed low&locked, side rails upx3, bed alarm is on. call light within reach. Will continue to monitor the pt.
[2019-08-13 04:00] VITALS: BP 124/72
[2019-08-13] MEDS: NovoLOG Insulin Flexpen SUBQ SCH ×4 (06:15→22:30)
--- NOTE | 2019-08-13 07:25 | NUR ---
HAND-OFF: Report given to GRACIELA Marshall.
--- NOTE | 2019-08-13 07:40 | NUR ---
NURSE NOTES: Received patient A/A/Ox4, mosotho speaking, denies pain/discomfort. resting calm and comfortable, Iv right hand g20, patent and intact. keep bed in the lowest position. lock and alarm activated for safety, side rails up x3, call light within reach, ambulate with assistance with a cane. will continue to monitor.
[2019-08-13 08:00] VITALS: BP 128/53
[2019-08-13 08:22] LABS: BASOPHILS % (AUTO) 1.1 % (0.0-2.0); EOSINOPHILS % (AUTO) 2.5 % (0.0-3.0); HEMATOCRIT 27.9 % (37.0-47.0); LYMPHOCYTES % (AUTO) 14.1 % (20.0-45.0); MEAN CORPUSCULAR VOLUME 90 FL (80-99); MONOCYTES % (AUTO) 9.8 % (1.0-10.0); NEUTROPHILS % (AUTO) 72.5 % (45.0-75.0); PLATELET COUNT 129 K/UL (150-450); RED CELL DISTRIBUTION WIDTH 16.3 % (11.6-14.8); WHITE BLOOD COUNT 4.3 K/UL (4.8-10.8)
[2019-08-13] MEDS: Carvedilol 12.5mg tab ORAL SCH ×2 (08:22→21:21)
[2019-08-13] MEDS: Docusate 100mg cap ORAL SCH ×3 (08:23→17:03)
[2019-08-13] MEDS: HydrALAZINE 10mg Tab ORAL SCH ×2 (08:23→21:22)
[2019-08-13] MEDS: Liothyronine 5mcg tab ORAL SCH (08:23)
[2019-08-13 08:54] LABS: ALANINE AMINOTRANSFERASE 15 U/L (12-78); ALBUMIN 3.2 G/DL (3.4-5.0); ALBUMIN/GLOBULIN RATIO 0.7 (1.0-2.7); ALKALINE PHOSPHATASE 198 U/L (46-116); ANION GAP 6 mmol/L (5-15); ASPARTATE AMINO TRANSFERASE 28 U/L (15-37); BILIRUBIN,TOTAL 1.9 MG/DL (0.2-1.0); BLOOD UREA NITROGEN 27 mg/dL (7-18); CALCIUM 8.3 MG/DL (8.5-10.1); CARBON DIOXIDE 27 MMOL/L (21-32); CHLORIDE 108 MMOL/L (98-107); CREATININE 1.2 MG/DL (0.55-1.30); POTASSIUM 4.2 MMOL/L (3.5-5.1); SODIUM 141 MMOL/L (136-145)
[2019-08-13 08:57] LABS: BILIRUBIN,DIRECT 0.7 MG/DL (0.0-0.3)
--- NOTE | 2019-08-13 09:23 | Nephrology Progress Note ---
Assessment/Plan Problem List: (1) Acute renal failure Assessment: resolved (2) Diabetic nephropathy (3) Diabetes mellitus (4) HTN (hypertension) (5) Pacemaker Assessment Renal failure ? Acute on chronic Pelvic hemoperitoneum. Epigastric pain. Nausea. Hypertension. Diabetes type 2. Atrial fibrillation. Hypercholesterolemia. Cerebrovascular disease. 1990 Plan folic acid- cytomel- Slow Hydrate- Anemia avila- transfused monitor renal parameters 2D echo Pending Kidney [facility] medical Renal disease med surg- DC planning Subjective ROS Limited/Unobtainable: No Objective Objective Last 24 Hour Vital Signs Date Time Temp Pulse Resp B/P (MAP) Pulse Ox O2 Delivery O2 Flow Rate FiO2 08/13/19 08:23 128/53 08/13/19 08:23 128/53 08/13/19 08:22 71 128/53 08/13/19 08:00 98.2 71 19 128/53 (78) 96 08/13/19 04:00 98.2 76 19 124/72 (89) 96 08/13/19 00:00 98.0 70 19 132/47 (75) 96 08/12/19 23:15 136/82 08/12/19 23:15 74 136/82 08/12/19 21:00 Room Air 08/12/19 20:00 97.9 71 18 119/59 (79) 97 08/12/19 18:13 115/47 08/12/19 16:00 72 08/12/19 16:00 98.2 70 18 115/47 (69) 95 08/12/19 12:00 74 08/12/19 12:00 98.2 69 18 102/49 (66) 95 Intake and Output 08/12/19 08/13/19 19:00 07:00 Intake Total 540 ml 150 ml Output Total 1850 ml Balance 540 ml -1700 ml Intake Oral 540 ml 150 ml Output Urine Total 1850 ml # Voids 3 2 # Bowel Movements 1 Laboratory Tests 08/13/19 07:16: White Blood Count 4.3L, Red Blood Count 3.10L, Hemoglobin 9.0L, Hematocrit 27.9L , Mean Corpuscular Volume 90, Mean Corpuscular Hemoglobin 29.0, Mean Corpuscular Hemoglobin Concent 32.2, Red Cell Distribution Width 16.3H, Platelet Count 129L, Mean Platelet Volume 7.2, Neutrophils (%) (Auto) 72.5, Lymphocytes (%) (Auto) 14.1L, Monocytes (%) (Auto) 9.8, Eosinophils (%) (Auto) 2.5, Basophils (%) (Auto) 1.1, Sodium Level 141, Potassium Level 4.2, Chloride Level 108H, Carbon Dioxide Level 27, Anion Gap 6, Blood Urea Nitrogen 27H, Creatinine 1.2, Estimat Glomerular Filtration Rate , Glucose Level 138H, Calcium Level 8.3L, Total Bilirubin 1.9H, Direct Bilirubin 0.7H, Aspartate Amino Transf (AST/SGOT) 28, Alanine Aminotransferase (ALT/SGPT) 15, Alkaline Phosphatase 198H, Total Protein 7.6, Albumin 3.2L, Globulin 4.4, Albumin/ Globulin Ratio 0.7L Height (Feet): 5 Height (Inches): 2.00 Weight (Pounds): 102 General Appearance: no apparent distress Objective no change Kirby Rivera MD Aug 13, 2019 09:23
--- NOTE | 2019-08-13 11:56 | Surgery Progress Note ---
Surgery Progress Note Subjective Additional Comments Patient seen and examined at bedside. No acute events. Comfortable. Tolerating diet. No abdominal pain. Passing gas and having bowel movements. Family at bedside. Otherwise H&H stable Lovenox ordered yesterday Objective Last 24 Hour Vital Signs Date Time Temp Pulse Resp B/P (MAP) Pulse Ox O2 Delivery O2 Flow Rate FiO2 08/13/19 09:00 Room Air 08/13/19 08:23 128/53 08/13/19 08:23 128/53 08/13/19 08:22 71 128/53 08/13/19 08:00 98.2 71 19 128/53 (78) 96 08/13/19 04:00 98.2 76 19 124/72 (89) 96 08/13/19 00:00 98.0 70 19 132/47 (75) 96 08/12/19 23:15 136/82 08/12/19 23:15 74 136/82 08/12/19 21:00 Room Air 08/12/19 20:00 97.9 71 18 119/59 (79) 97 08/12/19 18:13 115/47 08/12/19 16:00 72 08/12/19 16:00 98.2 70 18 115/47 (69) 95 08/12/19 12:00 74 08/12/19 12:00 98.2 69 18 102/49 (66) 95 I&O Intake and Output 08/12/19 08/13/19 19:00 07:00 Intake Total 540 ml 150 ml Output Total 1850 ml Balance 540 ml -1700 ml Intake Oral 540 ml 150 ml Output Urine Total 1850 ml # Voids 3 2 # Bowel Movements 1 Cardiovascular: RSR Respiratory: clear Abdomen: soft, flat, non-tender, present bowel sounds Extremities: no edema, no tenderness, no cyanosis Laboratory Tests Test 08/13/19 07:16 White Blood Count 4.3 K/UL (4.8-10.8) L Red Blood Count 3.10 M/UL (4.20-5.40) L Hemoglobin 9.0 G/DL (12.0-16.0) L Hematocrit 27.9 % (37.0-47.0) L Mean Corpuscular Volume 90 FL (80-99) Mean Corpuscular Hemoglobin 29.0 PG (27.0-31.0) Mean Corpuscular Hemoglobin Concent 32.2 G/DL (32.0-36.0) Red Cell Distribution Width 16.3 % (11.6-14.8) H Platelet Count 129 K/UL (150-450) L Mean Platelet Volume 7.2 FL (6.5-10.1) Neutrophils (%) (Auto) 72.5 % (45.0-75.0) Lymphocytes (%) (Auto) 14.1 % (20.0-45.0) L Monocytes (%) (Auto) 9.8 % (1.0-10.0) Eosinophils (%) (Auto) 2.5 % (0.0-3.0) Basophils (%) (Auto) 1.1 % (0.0-2.0) Sodium Level 141 MMOL/L (136-145) Potassium Level 4.2 MMOL/L (3.5-5.1) Chloride Level 108 MMOL/L (98-107) H Carbon Dioxide Level 27 MMOL/L (21-32) Anion Gap 6 mmol/L (5-15) Blood Urea Nitrogen 27 mg/dL (7-18) H Creatinine 1.2 MG/DL (0.55-1.30) Estimat Glomerular Filtration Rate mL/min (>60) Glucose Level 138 MG/DL (74-106) H Calcium Level 8.3 MG/DL (8.5-10.1) L Total Bilirubin 1.9 MG/DL (0.2-1.0) H Direct Bilirubin 0.7 MG/DL (0.0-0.3) H Aspartate Amino Transf (AST/SGOT) 28 U/L (15-37) Alanine Aminotransferase (ALT/SGPT) 15 U/L (12-78) Alkaline Phosphatase 198 U/L (46-116) H Total Protein 7.6 G/DL (6.4-8.2) Albumin 3.2 G/DL (3.4-5.0) L Globulin 4.4 g/dL Albumin/Globulin Ratio 0.7 (1.0-2.7) L Plan Problems: (1) Abdominal pain Assessment & Plan: 73-year-old female with abdominal pain likely due to intra- abdominal hemorrhage from coagulopathy. No trauma. H&H stable. Exam with mild tenderness but no peritonitis. No acute surgical invention recommend at this time Trend H&H We will follow with serial abdominal exams Reverse coagulopathy-appropriate now Vitamin K and FFP as needed Okay to start clear liquids Cardiology consultation Nephrology consultation worsening renal insufficiency IV fluids Advance diet Bowel regimen resume anticoag lovenox transition to coumadin We will follow with recommendations Thank you for let me participate in patient's care (2) Intra abdominal hemorrhage Assessment & Plan: There is a severe cardiomegaly with biatrial chamber enlargement. 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 Pacemaker is present. There is a hiatal hernia. The lung bases are clear. The IVC and hepatic veins are markedly enlarged. There are generalized reticular densities throughout the mesentery and omentum nonspecific. There is some free fluid within the pelvis especially in the area of the cul-de-sac posterior to the uterus. The fluid has a areas of increased density, suspicious for blood. The nature of the hemoperitoneum is not known and the clinical correlation is needed. There are no signs of trauma or any history of such. There is a hypodensity within the left hemipelvis measuring about 1.7 cm which could be an ovarian cyst. Consider rupture of an ovarian cyst or mass is certainly possible. There may be 1 cm focus of fat (image #[id number] [id number]) in association with the left ovary and adjacent to the cystic focus suggesting the possibility of an ovarian dermoid. There is a calcified fibroid within the uterus measuring 1.6 cm. IMPRESSION: Pelvic hemoperitoneum with moderate organized clot in the cul-de-sac. Nature of this is not known but consider possibility of a ruptured ovarian cyst and/or mass. Question of an ovarian dermoid on the left side. Differential includes trauma, iatrogenic causes from recent surgery/procedures, coagulopathies, antiocoagulation Rx or other causes of hemoperitoneum. Calcified uterine fibroid. Severe cardiomyopathy with biatrial chamber enlargement. Distended IVC and hepatic veins probably on the basis of tricuspid regurgitation or right heart failure. Atherosclerotic vascular disease. Pacemaker. Hiatal hernia. Mesenteric nodularity and reticulation may be on the basis of ascites/ hemoperitoneum described earlier. Iain Soria Aug 13, 2019 11:56
[2019-08-13 12:00] VITALS: BP 126/71
[2019-08-13] MEDS ORDERED: Warfarin Sodium 5mg ORAL SCH (13:30)
--- NOTE | 2019-08-13 14:54 | Internal Med Progress Note ---
Subjective Date of Service: Aug 13, 2019 Physician Name Sher Hansen Attending Physician Kobi Real MD Current Medications Medications (Trade) Dose Ordered Sig/Grisel Route PRN Reason Start Time Stop Time Status Last Admin Dose Admin Acetaminophen (Tylenol) 650 mg Q4H PRN ORAL fever 08/08/19 17:30 09/07/19 17:29 Allopurinol (Allopurinol) 150 mg DAILY ORAL 08/12/19 09:00 09/11/19 08:59 08/13/19 08:22 Carvedilol (Coreg) 12.5 mg EVERY 12 HOURS ORAL 08/10/19 21:00 09/09/19 20:59 08/13/19 08:22 Dextrose (Dextrose 50%) 25 ml Q30M PRN IV Hypoglycemia 08/08/19 17:30 09/07/19 17:29 Dextrose (Dextrose 50%) 50 ml Q30M PRN IV Hypoglycemia 08/08/19 17:30 09/07/19 17:29 Docusate Sodium (Colace) 100 mg TID ORAL 08/10/19 13:00 09/08/19 17:59 08/13/19 12:41 Enoxaparin Sodium (Lovenox) 50 mg Q24H SUBQ 08/13/19 21:00 09/12/19 20:59 Folic Acid (Folate) 2 mg DAILY ORAL 08/10/19 10:15 09/09/19 10:14 08/13/19 08:23 Hydralazine HCl (Apresoline) 10 mg Q12HR ORAL 08/11/19 21:00 09/09/19 17:59 08/13/19 08:23 Insulin Aspart (NovoLOG) BEFORE MEALS AND HS SUBQ 08/08/19 21:00 09/07/19 20:59 08/13/19 12:45 Isosorbide Dinitrate (Isordil) 10 mg BID ORAL 08/10/19 18:00 09/09/19 17:59 08/13/19 08:23 Liothyronine Sodium (Cytomel) 5 mcg DAILY ORAL 08/11/19 09:00 09/10/19 08:59 08/13/19 08:23 Nitroglycerin (Ntg) 0.4 mg Q5M X 3 DOSES PRN SL Prn Chest Pain 08/08/19 17:30 09/07/19 17:29 Ondansetron HCl (Zofran) 4 mg Q6H PRN IVP Nausea & Vomiting 08/08/19 17:30 09/07/19 17:29 Pantoprazole (Protonix) 40 mg BID ORAL 08/09/19 18:00 09/08/19 17:59 08/13/19 08:22 Polyethylene Glycol (Miralax) 17 gm HSPRN PRN ORAL Constipation 08/08/19 21:00 09/07/19 20:59 Temazepam (Restoril) 15 mg HSPRN PRN ORAL Insomnia 08/08/19 21:00 08/15/19 20:59 Warfarin Sodium (Coumadin per pharmacy) 1 ea DAILY PRN MISC Per rx protocol 08/13/19 12:00 09/12/19 11:59 Warfarin Sodium (Coumadin) 5 mg ONCE ORAL 08/13/19 13:30 08/18/19 13:29 08/13/19 14:13 Allergies: Coded Allergies: No Known Allergies (Unverified , 09/17/16) ROS Limited/Unobtainable: No Constitutional: Reports: no symptoms HEENT: Reports: no symptoms Cardiovascular: Reports: no symptoms Respiratory: Reports: no symptoms Gastrointestinal/Abdominal: Reports: no symptoms Genitourinary: Reports: no symptoms Neurologic/Psychiatric: Reports: no symptoms Subjective 73 YO F admitted with abdominal pain. Now pelvic hemoperitoneum and CHF. Cover for Int Sunny-Dr Real Objective Last Vital Signs Date Time Temp Pulse Resp B/P (MAP) Pulse Ox O2 Delivery O2 Flow Rate FiO2 08/13/19 12:00 98.1 70 18 126/71 (89) 96 08/13/19 09:00 Room Air 08/09/19 09:00 Laboratory Tests Test 08/13/19 07:16 White Blood Count 4.3 K/UL (4.8-10.8) L Red Blood Count 3.10 M/UL (4.20-5.40) L Hemoglobin 9.0 G/DL (12.0-16.0) L Hematocrit 27.9 % (37.0-47.0) L Mean Corpuscular Volume 90 FL (80-99) Mean Corpuscular Hemoglobin 29.0 PG (27.0-31.0) Mean Corpuscular Hemoglobin Concent 32.2 G/DL (32.0-36.0) Red Cell Distribution Width 16.3 % (11.6-14.8) H Platelet Count 129 K/UL (150-450) L Mean Platelet Volume 7.2 FL (6.5-10.1) Neutrophils (%) (Auto) 72.5 % (45.0-75.0) Lymphocytes (%) (Auto) 14.1 % (20.0-45.0) L Monocytes (%) (Auto) 9.8 % (1.0-10.0) Eosinophils (%) (Auto) 2.5 % (0.0-3.0) Basophils (%) (Auto) 1.1 % (0.0-2.0) Sodium Level 141 MMOL/L (136-145) Potassium Level 4.2 MMOL/L (3.5-5.1) Chloride Level 108 MMOL/L (98-107) H Carbon Dioxide Level 27 MMOL/L (21-32) Anion Gap 6 mmol/L (5-15) Blood Urea Nitrogen 27 mg/dL (7-18) H Creatinine 1.2 MG/DL (0.55-1.30) Estimat Glomerular Filtration Rate mL/min (>60) Glucose Level 138 MG/DL (74-106) H Calcium Level 8.3 MG/DL (8.5-10.1) L Total Bilirubin 1.9 MG/DL (0.2-1.0) H Direct Bilirubin 0.7 MG/DL (0.0-0.3) H Aspartate Amino Transf (AST/SGOT) 28 U/L (15-37) Alanine Aminotransferase (ALT/SGPT) 15 U/L (12-78) Alkaline Phosphatase 198 U/L (46-116) H Total Protein 7.6 G/DL (6.4-8.2) Albumin 3.2 G/DL (3.4-5.0) L Globulin 4.4 g/dL Albumin/Globulin Ratio 0.7 (1.0-2.7) L Intake and Output 08/12/19 08/13/19 19:00 07:00 Intake Total 540 ml 150 ml Output Total 1850 ml Balance 540 ml -1700 ml Intake Oral 540 ml 150 ml Output Urine Total 1850 ml # Voids 3 2 # Bowel Movements 1 Objective General Appearance: WD/WN, no apparent distress, alert EENT: PERRL/EOMI, normal ENT inspection Neck: non-tender, normal alignment, supple, normal inspection Cardiovascular: normal peripheral pulses, normal rate, regular rhythm, no gallop/murmur, no JVD Respiratory/Chest: chest wall non-tender, lungs clear, normal breath sounds, no respiratory distress, no accessory muscle use Abdomen: normal bowel sounds, decreased bowel sounds, guarding, tender Extremities: normal range of motion, non-tender 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 (2) Hemoperitoneum, nontraumatic Assessment & Plan: Due to coagulopathy due to coumadin. Hold coumadin. Follow hemoglobin. Non surgical-see surgery note=Dr Soria. (3) Epigastric pain (4) Nausea Assessment & Plan: tolerating clear liquid diet-see GI note=Dr Pimentel (5) HTN (hypertension) (6) Atrial fibrillation Assessment & Plan: Hold digoxin due to toxicity per cardiology (7) Coagulopathy Assessment & Plan: Lovenox subcut until coumadin therapeutic (8) Cerebral vascular disease (9) Pacemaker Assessment & Plan: EP Cardiology=Dr Carmona. Await pacemaker interrogation (10) Status post mitral valve replacement (11) Renal failure Assessment & Plan: Followed by nephrology =Dr Rivera (12) CHF (congestive heart failure) Assessment & Plan: BNP>2000. Cardiology consult=Dr Carmona Status: progressing Sher Hansen MD Aug 13, 2019 14:54
[2019-08-13 16:00] VITALS: BP 131/68
--- NOTE | 2019-08-13 17:55 | Cardiac Electrophysiology PN ---
Assessment/Plan Assessment/Plan 1. Paroxysmal atrial fibrillation, AV paced on digoxin 0.125 mg daily and metoprolol 50 mg b.i.d . Off anticoagulation for peritoneal bleeding 2. Status post Biotronik DDD pacemaker implantation by me in 2017 with Nl fx 3. History of hypertension. Stable 4. 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 Now on Dig, Coreg, Hydralazine and isordil May need pacer upgrade to ICD if EF remains less than 35% 5. Diabetes. 6. CVA in 1990. 7. Status post aortic valve replacement in 1985 and then again in 1995. 8. Abdominal pain due to bleeding peritoneum with moderate organized clot in the cul-de-sac, Further evaluation by Dr. Soria. KANDY RN Subjective Subjective Alert NAD. No CP or SOB. Transferred to [facility]. Objective Last 24 Hour Vital Signs Date Time Temp Pulse Resp B/P (MAP) Pulse Ox O2 Delivery O2 Flow Rate FiO2 08/13/19 17:07 131/68 08/13/19 16:00 98.9 72 18 131/68 (89) 97 08/13/19 12:00 98.1 70 18 126/71 (89) 96 08/13/19 09:00 Room Air 08/13/19 08:23 128/53 08/13/19 08:23 128/53 08/13/19 08:22 71 128/53 08/13/19 08:00 98.2 71 19 128/53 (78) 96 08/13/19 04:00 98.2 76 19 124/72 (89) 96 08/13/19 00:00 98.0 70 19 132/47 (75) 96 08/12/19 23:15 136/82 08/12/19 23:15 74 136/82 08/12/19 21:00 Room Air 08/12/19 20:00 97.9 71 18 119/59 (79) 97 08/12/19 18:13 115/47 Intake and Output 08/12/19 08/13/19 19:00 07:00 Intake Total 540 ml 150 ml Output Total 1850 ml Balance 540 ml -1700 ml Intake Oral 540 ml 150 ml Output Urine Total 1850 ml # Voids 3 2 # Bowel Movements 1 Laboratory Tests Test 08/13/19 07:16 White Blood Count 4.3 K/UL (4.8-10.8) L Red Blood Count 3.10 M/UL (4.20-5.40) L Hemoglobin 9.0 G/DL (12.0-16.0) L Hematocrit 27.9 % (37.0-47.0) L Mean Corpuscular Volume 90 FL (80-99) Mean Corpuscular Hemoglobin 29.0 PG (27.0-31.0) Mean Corpuscular Hemoglobin Concent 32.2 G/DL (32.0-36.0) Red Cell Distribution Width 16.3 % (11.6-14.8) H Platelet Count 129 K/UL (150-450) L Mean Platelet Volume 7.2 FL (6.5-10.1) Neutrophils (%) (Auto) 72.5 % (45.0-75.0) Lymphocytes (%) (Auto) 14.1 % (20.0-45.0) L Monocytes (%) (Auto) 9.8 % (1.0-10.0) Eosinophils (%) (Auto) 2.5 % (0.0-3.0) Basophils (%) (Auto) 1.1 % (0.0-2.0) Sodium Level 141 MMOL/L (136-145) Potassium Level 4.2 MMOL/L (3.5-5.1) Chloride Level 108 MMOL/L (98-107) H Carbon Dioxide Level 27 MMOL/L (21-32) Anion Gap 6 mmol/L (5-15) Blood Urea Nitrogen 27 mg/dL (7-18) H Creatinine 1.2 MG/DL (0.55-1.30) Estimat Glomerular Filtration Rate mL/min (>60) Glucose Level 138 MG/DL (74-106) H Calcium Level 8.3 MG/DL (8.5-10.1) L Total Bilirubin 1.9 MG/DL (0.2-1.0) H Direct Bilirubin 0.7 MG/DL (0.0-0.3) H Aspartate Amino Transf (AST/SGOT) 28 U/L (15-37) Alanine Aminotransferase (ALT/SGPT) 15 U/L (12-78) Alkaline Phosphatase 198 U/L (46-116) H Total Protein 7.6 G/DL (6.4-8.2) Albumin 3.2 G/DL (3.4-5.0) L Globulin 4.4 g/dL Albumin/Globulin Ratio 0.7 (1.0-2.7) L Objective HEAD AND NECK: No JVD. LUNGS: Clear. CARDIOVASCULAR: Shows metallic S2 with soft systolic murmur. Sternotomy is intact. Pacemaker in the left subclavian. ABDOMEN: Soft. EXTREMITIES: With no pitting edema. Osmany Carmona MD Aug 13, 2019 17:55
--- NOTE | 2019-08-13 18:28 | General Progress Note ---
Assessment/Plan Status: progressing Assessment/Plan: Assessment/Plan (1) Anemia ICD Codes: D64.9 - Anemia, unspecified SNOMED: 596834536 (2) Iron deficiency ICD Codes: E61.1 - Iron deficiency SNOMED: 96476568 (3) Hemoperitoneum, nontraumatic ICD Codes: K66.1 - Hemoperitoneum SNOMED: 12362056 (4) Epigastric pain ICD Codes: R10.13 - Epigastric pain SNOMED: 71916305 (5) Abdominal pain ICD Codes: R10.9 - Unspecified abdominal pain SNOMED: 44416993 Assessment/Plan No plans for any GI procedures at this time Follow-up surgical recommendations >> no noted surgical intervention at this time Follow-up cardiology recommendations 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, 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 Advance diet Bowel regimen of Colace and MiraLAX Continue PPI Sent for fecal occult blood stool to rule out any GI bleed Outpatient GI procedur Subjective Allergies: Coded Allergies: No Known Allergies (Unverified , 09/17/16) Subjective Feels OK tolerating PO no abd pain Objective Last 24 Hour Vital Signs Date Time Temp Pulse Resp B/P (MAP) Pulse Ox O2 Delivery O2 Flow Rate FiO2 08/13/19 17:07 131/68 08/13/19 16:00 98.9 72 18 131/68 (89) 97 08/13/19 12:00 98.1 70 18 126/71 (89) 96 08/13/19 09:00 Room Air 08/13/19 08:23 128/53 08/13/19 08:23 128/53 08/13/19 08:22 71 128/53 08/13/19 08:00 98.2 71 19 128/53 (78) 96 08/13/19 04:00 98.2 76 19 124/72 (89) 96 08/13/19 00:00 98.0 70 19 132/47 (75) 96 08/12/19 23:15 136/82 08/12/19 23:15 74 136/82 08/12/19 21:00 Room Air 08/12/19 20:00 97.9 71 18 119/59 (79) 97 Intake and Output 08/12/19 08/13/19 19:00 07:00 Intake Total 540 ml 150 ml Output Total 1850 ml Balance 540 ml -1700 ml Intake Oral 540 ml 150 ml Output Urine Total 1850 ml # Voids 3 2 # Bowel Movements 1 Laboratory Tests 08/13/19 07:16: White Blood Count 4.3L, Red Blood Count 3.10L, Hemoglobin 9.0L, Hematocrit 27.9L , Mean Corpuscular Volume 90, Mean Corpuscular Hemoglobin 29.0, Mean Corpuscular Hemoglobin Concent 32.2, Red Cell Distribution Width 16.3H, Platelet Count 129L, Mean Platelet Volume 7.2, Neutrophils (%) (Auto) 72.5, Lymphocytes (%) (Auto) 14.1L, Monocytes (%) (Auto) 9.8, Eosinophils (%) (Auto) 2.5, Basophils (%) (Auto) 1.1, Sodium Level 141, Potassium Level 4.2, Chloride Level 108H, Carbon Dioxide Level 27, Anion Gap 6, Blood Urea Nitrogen 27H, Creatinine 1.2, Estimat Glomerular Filtration Rate , Glucose Level 138H, Calcium Level 8.3L, Total Bilirubin 1.9H, Direct Bilirubin 0.7H, Aspartate Amino Transf (AST/SGOT) 28, Alanine Aminotransferase (ALT/SGPT) 15, Alkaline Phosphatase 198H, Total Protein 7.6, Albumin 3.2L, Globulin 4.4, Albumin/ Globulin Ratio 0.7L Height (Feet): 5 Height (Inches): 2.00 Weight (Pounds): 102 Objective WDWN NCAT supple CTA RRR abd soft NT minimally distended no edema non focal Kishor Foley MD Aug 13, 2019 18:28
--- NOTE | 2019-08-13 19:03 | NUR ---
HAND-OFF: Report given to Soraya.
[2019-08-13 20:00] VITALS: BP 131/58
--- NOTE | 2019-08-13 20:00 | NUR ---
NURSE NOTES: RECEIVED PATIENT LYING IN BED WITH HEAD OF BED ELEVATED, AWAKE, ALERT/ORIENTED X3, TRISTANIAN SPEAKING, FAMILY AT BEDSIDE, DENIES PAIN. NO SIGNS AND SYMPTOMS OF ACUTE CARDIO RESPIRATORY DISTRESS/SHORTNESS OF BREATH, NO EDEMA NOTED. NOTED WITH RIGHT SIDE WEAKNESS SECONDARY TO CVA. ABDOMEN FIRM, SLIGHTLY DISTENDED, AUDIBLE BOWEL SOUNDS, NON TENDER, DENIES NAUSEA/VOMITING/CONSTIPATION. ABLE TO REPOSITION SELF AD JUANITA. AMBULATORY, CANE AT BEDSIDE, INSTRUCTED PATIENT TO UTILIZE CALL LIGHT FOR ASSISTANCE, VERBALIZED UNDERSTANDING. SIDE RAILS UP X2/BED IN LOWEST POSITION FOR SAFETY. HOURLY ROUNDING FOR SAFETY/NEEDS. CONTINUE WITH CURRENT PLAN OF CARE. NAD.
--- NOTE | 2019-08-13 21:10 | Pulmonology Progress Note ---
Assessment/Plan Problems: (1) Intra abdominal hemorrhage (2) Coagulopathy (3) Acute renal failure (4) Atrial fibrillation (5) HTN (hypertension) (6) Abdominal pain (7) Pacemaker (8) Aortic valve replaced (9) Status post mitral valve replacement (10) Cerebral vascular disease (11) Diabetes mellitus (12) Chronic anticoagulation Assessment/Plan h/h stable, off anticoagulation Blood sugar fairly controlled, symptomatic treatment v-paced, pacemaker will be interrogated check electrolytes symptomatic treatment Subjective Interval Events: doing better Allergies: Coded Allergies: No Known Allergies (Unverified , 09/17/16) Objective Last 24 Hour Vital Signs Date Time Temp Pulse Resp B/P (MAP) Pulse Ox O2 Delivery O2 Flow Rate FiO2 08/13/19 17:07 131/68 08/13/19 16:00 98.9 72 18 131/68 (89) 97 08/13/19 12:00 98.1 70 18 126/71 (89) 96 08/13/19 09:00 Room Air 08/13/19 08:23 128/53 08/13/19 08:23 128/53 08/13/19 08:22 71 128/53 08/13/19 08:00 98.2 71 19 128/53 (78) 96 08/13/19 04:00 98.2 76 19 124/72 (89) 96 08/13/19 00:00 98.0 70 19 132/47 (75) 96 08/12/19 23:15 136/82 08/12/19 23:15 74 136/82 Intake and Output 08/12/19 08/13/19 18:59 06:59 Intake Total 540 ml 150 ml Output Total 1850 ml Balance 540 ml -1700 ml Intake Oral 540 ml 150 ml Output Urine Total 1850 ml # Voids 3 2 # Bowel Movements 1 Objective General Appearance: WD/WN, no apparent distress Lines, tubes and drains: peripheral HEENT: normocephalic, atraumatic Neck: non-tender, normal alignment Respiratory/Chest: chest wall non-tender, lungs clear Breasts: no masses Cardiovascular/Chest: normal peripheral pulses Abdomen: non tender Extremities: normal range of motion Skin Exam: normal pigmentation Laboratory Tests 08/13/19 07:16: White Blood Count 4.3L, Red Blood Count 3.10L, Hemoglobin 9.0L, Hematocrit 27.9L , Mean Corpuscular Volume 90, Mean Corpuscular Hemoglobin 29.0, Mean Corpuscular Hemoglobin Concent 32.2, Red Cell Distribution Width 16.3H, Platelet Count 129L, Mean Platelet Volume 7.2, Neutrophils (%) (Auto) 72.5, Lymphocytes (%) (Auto) 14.1L, Monocytes (%) (Auto) 9.8, Eosinophils (%) (Auto) 2.5, Basophils (%) (Auto) 1.1, Sodium Level 141, Potassium Level 4.2, Chloride Level 108H, Carbon Dioxide Level 27, Anion Gap 6, Blood Urea Nitrogen 27H, Creatinine 1.2, Estimat Glomerular Filtration Rate , Glucose Level 138H, Calcium Level 8.3L, Total Bilirubin 1.9H, Direct Bilirubin 0.7H, Aspartate Amino Transf (AST/SGOT) 28, Alanine Aminotransferase (ALT/SGPT) 15, Alkaline Phosphatase 198H, Total Protein 7.6, Albumin 3.2L, Globulin 4.4, Albumin/ Globulin Ratio 0.7L Current Medications Medications (Trade) Dose Ordered Sig/Grisel Route PRN Reason Start Time Stop Time Status Last Admin Dose Admin Acetaminophen (Tylenol) 650 mg Q4H PRN ORAL fever 08/08/19 17:30 09/07/19 17:29 Allopurinol (Allopurinol) 150 mg DAILY ORAL 08/12/19 09:00 09/11/19 08:59 08/13/19 08:22 Carvedilol (Coreg) 12.5 mg EVERY 12 HOURS ORAL 08/10/19 21:00 09/09/19 20:59 08/13/19 08:22 Dextrose (Dextrose 50%) 25 ml Q30M PRN IV Hypoglycemia 08/08/19 17:30 09/07/19 17:29 Dextrose (Dextrose 50%) 50 ml Q30M PRN IV Hypoglycemia 08/08/19 17:30 09/07/19 17:29 Docusate Sodium (Colace) 100 mg TID ORAL 08/10/19 13:00 09/08/19 17:59 08/13/19 17:03 Enoxaparin Sodium (Lovenox) 50 mg Q24H SUBQ 08/13/19 21:00 09/12/19 20:59 Folic Acid (Folate) 2 mg DAILY ORAL 08/10/19 10:15 09/09/19 10:14 08/13/19 08:23 Hydralazine HCl (Apresoline) 10 mg Q12HR ORAL 08/11/19 21:00 09/09/19 17:59 08/13/19 08:23 Insulin Aspart (NovoLOG) BEFORE MEALS AND HS SUBQ 08/08/19 21:00 09/07/19 20:59 08/13/19 17:06 Isosorbide Dinitrate (Isordil) 10 mg BID ORAL 08/10/19 18:00 09/09/19 17:59 08/13/19 17:07 Liothyronine Sodium (Cytomel) 5 mcg DAILY ORAL 08/11/19 09:00 09/10/19 08:59 08/13/19 08:23 Nitroglycerin (Ntg) 0.4 mg Q5M X 3 DOSES PRN SL Prn Chest Pain 08/08/19 17:30 09/07/19 17:29 Ondansetron HCl (Zofran) 4 mg Q6H PRN IVP Nausea & Vomiting 08/08/19 17:30 09/07/19 17:29 Pantoprazole (Protonix) 40 mg BID ORAL 08/09/19 18:00 09/08/19 17:59 08/13/19 17:07 Polyethylene Glycol (Miralax) 17 gm HSPRN PRN ORAL Constipation 08/08/19 21:00 09/07/19 20:59 Temazepam (Restoril) 15 mg HSPRN PRN ORAL Insomnia 08/08/19 21:00 08/15/19 20:59 Warfarin Sodium (Coumadin per pharmacy) 1 ea DAILY PRN MISC Per rx protocol 08/13/19 12:00 09/12/19 11:59 Warfarin Sodium (Coumadin) 5 mg ONCE ORAL 08/13/19 13:30 08/18/19 13:29 08/13/19 14:13 Remedios Albarran MD Aug 13, 2019 21:10
[2019-08-13] MEDS: Enoxaparin Sodium 300mg/3ml vial SUBQ SCH (21:25)
[2019-08-14] VITALS: BP 125/64
--- NOTE | 2019-08-14 01:00 | NUR ---
NURSE NOTES: RESTING WELL, NAD.
[2019-08-14 04:00] VITALS: BP 130/68
[2019-08-14] MEDS: NovoLOG Insulin Flexpen SUBQ SCH ×4 (06:32→20:39)
--- NOTE | 2019-08-14 06:34 | NUR ---
NURSE NOTES: BLOOD GLUCOSE LEVEL MONITORED VIA GLUCOMETER WITH RESULT 135MG/DL, ASYMPTOMATIC, ADM. 2 UNITS NOVOLOG INSULIN SUBCUT, TOLERATED WELL, NO ADVERSE REACTION NOTED AFTER 15 MINUTES. NAD.
[2019-08-14 07:28] LABS: BASOPHILS % (AUTO) 1.1 % (0.0-2.0); HEMOGLOBIN 9.1 G/DL (12.0-16.0); LYMPHOCYTES % (AUTO) 16.8 % (20.0-45.0); MEAN CORPUSCULAR VOLUME 90 FL (80-99); MONOCYTES % (AUTO) 7.5 % (1.0-10.0); NEUTROPHILS % (AUTO) 71.5 % (45.0-75.0); PLATELET COUNT 122 K/UL (150-450); RED BLOOD COUNT 3.09 M/UL (4.20-5.40); RED CELL DISTRIBUTION WIDTH 17.3 % (11.6-14.8); WHITE BLOOD COUNT 3.8 K/UL (4.8-10.8)
--- NOTE | 2019-08-14 07:30 | NUR ---
NURSE NOTES: Received patient A/A/Ox4, [facility] lucian speaking, denies pain/discomfort. eating breakfast in bed. keep calm and comfortable. IV access right hand g20, patent and intact. keep bed in the lowest position. lock and alarm activated for safety, side rails up x3, call light within reach, ambulate with assistance with a cane. will continue to monitor.
--- NOTE | 2019-08-14 07:31 | NUR ---
HAND-OFF: Report given to GRACIELA RIDLEY.
[2019-08-14 07:50] LABS: ANION GAP 10 mmol/L (5-15); BLOOD UREA NITROGEN 29 mg/dL (7-18); CALCIUM 8.6 MG/DL (8.5-10.1); CARBON DIOXIDE 23 MMOL/L (21-32); CHLORIDE 110 MMOL/L (98-107); CREATININE 1.2 MG/DL (0.55-1.30); SODIUM 143 MMOL/L (136-145)
[2019-08-14 08:00] VITALS: BP 116/54
[2019-08-14] MEDS: Docusate 100mg cap ORAL SCH ×3 (08:35→17:05)
[2019-08-14] MEDS: Carvedilol 12.5mg tab ORAL SCH ×2 (08:35→20:37)
[2019-08-14] MEDS: Liothyronine 5mcg tab ORAL SCH (08:35)
[2019-08-14] MEDS: HydrALAZINE 10mg Tab ORAL SCH ×2 (08:36→20:37)
--- NOTE | 2019-08-14 10:44 | NUR ---
RD ASSESSMENT & RECOMMENDATIONS SEE CARE ACTIVITY FOR COMPLETE ASSESSMENT DAILY ESTIMATED NEEDS: Needs based on DM + cardiac /46kg 25-30 kcals/kg 7647-7024 total kcals 1-1.5 g protein/kg 46-69 g total protein 25-30 mL/kg 7134-0126 total fluid mLs NUTRITION DIAGNOSIS: 1) Decreased sodium intake needs R/T cardiac hx as evidenced by hx of CVA, w/ elev BNP (2833). CURRENT DIET:CCHO LOW PO DIET RECOMMENDATIONS: CCHO LOW, LOW NA + Glucerna 1 tetra yvan daily ADDITIONAL RECOMMENDATIONS: * Obtain a standing weight as able for eval * Coumadin edu as able * Encourage po intake/ snacks as needed
--- NOTE | 2019-08-14 11:21 | Nephrology Progress Note ---
Assessment/Plan Problem List: (1) Acute renal failure Assessment: resolved (2) Diabetic nephropathy (3) Diabetes mellitus (4) HTN (hypertension) (5) Pacemaker Assessment Renal failure ? Acute on chronic Pelvic hemoperitoneum. Epigastric pain. Nausea. Hypertension. Diabetes type 2. Atrial fibrillation. Hypercholesterolemia. Cerebrovascular disease. 1990 Plan folic acid- cytomel- Slow Hydrate- Anemia avila- transfused monitor renal parameters 2D echo Pending Kidney [facility] medical Renal disease med surg- DC planning Subjective ROS Limited/Unobtainable: No Objective Objective Last 24 Hour Vital Signs Date Time Temp Pulse Resp B/P (MAP) Pulse Ox O2 Delivery O2 Flow Rate FiO2 08/14/19 08:36 116/54 08/14/19 08:36 116/54 08/14/19 08:35 68 116/54 08/14/19 08:30 Room Air 08/14/19 08:00 98.2 68 19 116/54 (74) 95 08/14/19 04:00 97.5 88 19 130/68 (88) 99 08/14/19 00:00 97.7 89 19 125/64 (84) 97 08/13/19 21:22 121/74 08/13/19 21:21 71 127/64 08/13/19 21:00 Room Air 08/13/19 20:00 98.3 71 19 131/58 (82) 97 08/13/19 17:07 131/68 08/13/19 16:00 98.9 72 18 131/68 (89) 97 08/13/19 12:00 98.1 70 18 126/71 (89) 96 Intake and Output 08/13/19 08/14/19 19:00 07:00 Intake Total 840 ml 480 ml Balance 840 ml 480 ml Intake Oral 840 ml 480 ml # Voids 5 4 # Bowel Movements 1 Laboratory Tests 08/14/19 07:05: White Blood Count 3.8L, Red Blood Count 3.09L, Hemoglobin 9.1L, Hematocrit 28.0L , Mean Corpuscular Volume 90, Mean Corpuscular Hemoglobin 29.6, Mean Corpuscular Hemoglobin Concent 32.7, Red Cell Distribution Width 17.3H, Platelet Count 122L, Mean Platelet Volume 6.6, Neutrophils (%) (Auto) 71.5, Lymphocytes (%) (Auto) 16.8L, Monocytes (%) (Auto) 7.5, Eosinophils (%) (Auto) 3.0, Basophils (%) (Auto) 1.1, Prothrombin Time 11.0, Prothromb Time International Ratio 1.0, Activated Partial Thromboplast Time 36H, Sodium Level 143, Potassium Level 4.0, Chloride Level 110H, Carbon Dioxide Level 23, Anion Gap 10, Blood Urea Nitrogen 29H, Creatinine 1.2, Estimat Glomerular Filtration Rate , Glucose Level 133H, Calcium Level 8.6 Height (Feet): 5 Height (Inches): 2.00 Weight (Pounds): 101 General Appearance: no apparent distress Objective no change Kirby Rivera MD Aug 14, 2019 11:21
[2019-08-14 12:00] VITALS: BP 117/53
--- NOTE | 2019-08-14 14:30 | Internal Med Progress Note ---
Subjective Date of Service: Aug 14, 2019 Physician Name Sher Hansen Attending Physician Kobi Real MD Current Medications Medications (Trade) Dose Ordered Sig/Grisel Route PRN Reason Start Time Stop Time Status Last Admin Dose Admin Acetaminophen (Tylenol) 650 mg Q4H PRN ORAL fever 08/08/19 17:30 09/07/19 17:29 Allopurinol (Allopurinol) 150 mg DAILY ORAL 08/12/19 09:00 09/11/19 08:59 08/14/19 08:35 Carvedilol (Coreg) 12.5 mg EVERY 12 HOURS ORAL 08/10/19 21:00 09/09/19 20:59 08/14/19 08:35 Dextrose (Dextrose 50%) 25 ml Q30M PRN IV Hypoglycemia 08/08/19 17:30 09/07/19 17:29 Dextrose (Dextrose 50%) 50 ml Q30M PRN IV Hypoglycemia 08/08/19 17:30 09/07/19 17:29 Docusate Sodium (Colace) 100 mg TID ORAL 08/10/19 13:00 09/08/19 17:59 08/14/19 13:22 Enoxaparin Sodium (Lovenox) 50 mg Q24H SUBQ 08/13/19 21:00 09/12/19 20:59 08/13/19 21:25 Folic Acid (Folate) 2 mg DAILY ORAL 08/10/19 10:15 09/09/19 10:14 08/14/19 08:35 Hydralazine HCl (Apresoline) 10 mg Q12HR ORAL 08/11/19 21:00 09/09/19 17:59 08/14/19 08:36 Insulin Aspart (NovoLOG) BEFORE MEALS AND HS SUBQ 08/08/19 21:00 09/07/19 20:59 08/14/19 12:03 Isosorbide Dinitrate (Isordil) 10 mg BID ORAL 08/10/19 18:00 09/09/19 17:59 08/14/19 08:36 Liothyronine Sodium (Cytomel) 5 mcg DAILY ORAL 08/11/19 09:00 09/10/19 08:59 08/14/19 08:35 Nitroglycerin (Ntg) 0.4 mg Q5M X 3 DOSES PRN SL Prn Chest Pain 08/08/19 17:30 09/07/19 17:29 Ondansetron HCl (Zofran) 4 mg Q6H PRN IVP Nausea & Vomiting 08/08/19 17:30 09/07/19 17:29 Pantoprazole (Protonix) 40 mg BID ORAL 08/09/19 18:00 09/08/19 17:59 08/14/19 08:36 Polyethylene Glycol (Miralax) 17 gm HSPRN PRN ORAL Constipation 08/08/19 21:00 09/07/19 20:59 Temazepam (Restoril) 15 mg HSPRN PRN ORAL Insomnia 08/08/19 21:00 08/15/19 20:59 Warfarin Sodium (Coumadin per pharmacy) 1 ea DAILY PRN MISC Per rx protocol 08/13/19 12:00 09/12/19 11:59 Warfarin Sodium (Coumadin) 5 mg COUMADIN ONCE ORAL 08/14/19 17:00 08/14/19 17:01 Allergies: Coded Allergies: No Known Allergies (Unverified , 09/17/16) ROS Limited/Unobtainable: No Constitutional: Reports: no symptoms HEENT: Reports: no symptoms Cardiovascular: Reports: no symptoms Respiratory: Reports: no symptoms Gastrointestinal/Abdominal: Reports: no symptoms Genitourinary: Reports: no symptoms Neurologic/Psychiatric: Reports: no symptoms Subjective 73 YO F admitted with abdominal pain. Now pelvic hemoperitoneum and CHF. Cover for Scott Correa-Dr Real Objective Last Vital Signs Date Time Temp Pulse Resp B/P (MAP) Pulse Ox O2 Delivery O2 Flow Rate FiO2 08/14/19 12:00 97.8 78 18 117/53 (74) 97 08/14/19 08:30 Room Air 08/09/19 09:00 Laboratory Tests Test 08/14/19 07:05 White Blood Count 3.8 K/UL (4.8-10.8) L Red Blood Count 3.09 M/UL (4.20-5.40) L Hemoglobin 9.1 G/DL (12.0-16.0) L Hematocrit 28.0 % (37.0-47.0) L Mean Corpuscular Volume 90 FL (80-99) Mean Corpuscular Hemoglobin 29.6 PG (27.0-31.0) Mean Corpuscular Hemoglobin Concent 32.7 G/DL (32.0-36.0) Red Cell Distribution Width 17.3 % (11.6-14.8) H Platelet Count 122 K/UL (150-450) L Mean Platelet Volume 6.6 FL (6.5-10.1) Neutrophils (%) (Auto) 71.5 % (45.0-75.0) Lymphocytes (%) (Auto) 16.8 % (20.0-45.0) L Monocytes (%) (Auto) 7.5 % (1.0-10.0) Eosinophils (%) (Auto) 3.0 % (0.0-3.0) Basophils (%) (Auto) 1.1 % (0.0-2.0) Prothrombin Time 11.0 SEC (9.30-11.50) Prothromb Time International Ratio 1.0 (0.9-1.1) Activated Partial Thromboplast Time 36 SEC (23-33) H Sodium Level 143 MMOL/L (136-145) Potassium Level 4.0 MMOL/L (3.5-5.1) Chloride Level 110 MMOL/L (98-107) H Carbon Dioxide Level 23 MMOL/L (21-32) Anion Gap 10 mmol/L (5-15) Blood Urea Nitrogen 29 mg/dL (7-18) H Creatinine 1.2 MG/DL (0.55-1.30) Estimat Glomerular Filtration Rate mL/min (>60) Glucose Level 133 MG/DL (74-106) H Calcium Level 8.6 MG/DL (8.5-10.1) Intake and Output 08/13/19 08/14/19 19:00 07:00 Intake Total 840 ml 480 ml Balance 840 ml 480 ml Intake Oral 840 ml 480 ml # Voids 5 4 # Bowel Movements 1 Objective General Appearance: WD/WN, no apparent distress, alert EENT: PERRL/EOMI, normal ENT inspection Neck: non-tender, normal alignment, supple, normal inspection Cardiovascular: normal peripheral pulses, normal rate, regular rhythm, no gallop/murmur, no JVD Respiratory/Chest: chest wall non-tender, lungs clear, normal breath sounds, no respiratory distress, no accessory muscle use Abdomen: normal bowel sounds, decreased bowel sounds, guarding, tender Extremities: normal range of motion, non-tender 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 (2) Hemoperitoneum, nontraumatic Assessment & Plan: Due to coagulopathy due to coumadin. Hold coumadin. Follow hemoglobin. Non surgical-see surgery note=Dr Soria. (3) Epigastric pain (4) Nausea Assessment & Plan: tolerating clear liquid diet-see GI note=Dr Pimentel (5) HTN (hypertension) (6) Atrial fibrillation Assessment & Plan: Hold digoxin due to toxicity per cardiology (7) Coagulopathy Assessment & Plan: Lovenox subcut until coumadin therapeutic (8) Cerebral vascular disease (9) Pacemaker Assessment & Plan: EP Cardiology=Dr Carmona. Await pacemaker interrogation (10) Status post mitral valve replacement (11) Renal failure Assessment & Plan: Followed by nephrology =Dr Rivera (12) CHF (congestive heart failure) Assessment & Plan: BNP>2000. Cardiology consult=Dr Carmona Assessment/Plan Discharge planning: home health Sher Hansen MD Aug 14, 2019 14:30
[2019-08-14 16:00] VITALS: BP 129/60
--- NOTE | 2019-08-14 16:21 | Surgery Progress Note ---
Surgery Progress Note Subjective Symptoms: improved, pain absent, tolerating diet, voiding well, passing flatus , BM Objective Last 24 Hour Vital Signs Date Time Temp Pulse Resp B/P (MAP) Pulse Ox O2 Delivery O2 Flow Rate FiO2 08/14/19 16:00 98.1 70 18 129/60 (83) 95 08/14/19 12:00 97.8 78 18 117/53 (74) 97 08/14/19 08:36 116/54 08/14/19 08:36 116/54 08/14/19 08:35 68 116/54 08/14/19 08:30 Room Air 08/14/19 08:00 98.2 68 19 116/54 (74) 95 08/14/19 04:00 97.5 88 19 130/68 (88) 99 08/14/19 00:00 97.7 89 19 125/64 (84) 97 08/13/19 21:22 121/74 08/13/19 21:21 71 127/64 08/13/19 21:00 Room Air 08/13/19 20:00 98.3 71 19 131/58 (82) 97 08/13/19 17:07 131/68 I&O Intake and Output 08/13/19 08/14/19 19:00 07:00 Intake Total 840 ml 480 ml Balance 840 ml 480 ml Intake Oral 840 ml 480 ml # Voids 5 4 # Bowel Movements 1 Cardiovascular: RSR Respiratory: clear Abdomen: soft, scaphoid, non-tender, present bowel sounds Extremities: no edema, no tenderness, no cyanosis Laboratory Tests Test 08/14/19 07:05 White Blood Count 3.8 K/UL (4.8-10.8) L Red Blood Count 3.09 M/UL (4.20-5.40) L Hemoglobin 9.1 G/DL (12.0-16.0) L Hematocrit 28.0 % (37.0-47.0) L Mean Corpuscular Volume 90 FL (80-99) Mean Corpuscular Hemoglobin 29.6 PG (27.0-31.0) Mean Corpuscular Hemoglobin Concent 32.7 G/DL (32.0-36.0) Red Cell Distribution Width 17.3 % (11.6-14.8) H Platelet Count 122 K/UL (150-450) L Mean Platelet Volume 6.6 FL (6.5-10.1) Neutrophils (%) (Auto) 71.5 % (45.0-75.0) Lymphocytes (%) (Auto) 16.8 % (20.0-45.0) L Monocytes (%) (Auto) 7.5 % (1.0-10.0) Eosinophils (%) (Auto) 3.0 % (0.0-3.0) Basophils (%) (Auto) 1.1 % (0.0-2.0) Prothrombin Time 11.0 SEC (9.30-11.50) Prothromb Time International Ratio 1.0 (0.9-1.1) Activated Partial Thromboplast Time 36 SEC (23-33) H Sodium Level 143 MMOL/L (136-145) Potassium Level 4.0 MMOL/L (3.5-5.1) Chloride Level 110 MMOL/L (98-107) H Carbon Dioxide Level 23 MMOL/L (21-32) Anion Gap 10 mmol/L (5-15) Blood Urea Nitrogen 29 mg/dL (7-18) H Creatinine 1.2 MG/DL (0.55-1.30) Estimat Glomerular Filtration Rate mL/min (>60) Glucose Level 133 MG/DL (74-106) H Calcium Level 8.6 MG/DL (8.5-10.1) Plan Problems: (1) Abdominal pain Assessment & Plan: 73-year-old female with abdominal pain likely due to intra- abdominal hemorrhage from coagulopathy. No trauma. H&H stable. Exam with mild tenderness but no peritonitis. No acute surgical invention recommend at this time Trend H&H We will follow with serial abdominal exams Reverse coagulopathy-appropriate now Vitamin K and FFP as needed Okay to start clear liquids Cardiology consultation Nephrology consultation worsening renal insufficiency IV fluids Advance diet Bowel regimen resume anticoag lovenox transition to coumadin We will follow with recommendations Thank you for let me participate in patient's care (2) Intra abdominal hemorrhage Assessment & Plan: There is a severe cardiomegaly with biatrial chamber enlargement. 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 Pacemaker is present. There is a hiatal hernia. The lung bases are clear. The IVC and hepatic veins are markedly enlarged. There are generalized reticular densities throughout the mesentery and omentum nonspecific. There is some free fluid within the pelvis especially in the area of the cul-de-sac posterior to the uterus. The fluid has a areas of increased density, suspicious for blood. The nature of the hemoperitoneum is not known and the clinical correlation is needed. There are no signs of trauma or any history of such. There is a hypodensity within the left hemipelvis measuring about 1.7 cm which could be an ovarian cyst. Consider rupture of an ovarian cyst or mass is certainly possible. There may be 1 cm focus of fat (image #[id number] [id number]) in association with the left ovary and adjacent to the cystic focus suggesting the possibility of an ovarian dermoid. There is a calcified fibroid within the uterus measuring 1.6 cm. IMPRESSION: Pelvic hemoperitoneum with moderate organized clot in the cul-de-sac. Nature of this is not known but consider possibility of a ruptured ovarian cyst and/or mass. Question of an ovarian dermoid on the left side. Differential includes trauma, iatrogenic causes from recent surgery/procedures, coagulopathies, antiocoagulation Rx or other causes of hemoperitoneum. Calcified uterine fibroid. Severe cardiomyopathy with biatrial chamber enlargement. Distended IVC and hepatic veins probably on the basis of tricuspid regurgitation or right heart failure. Atherosclerotic vascular disease. Pacemaker. Hiatal hernia. Mesenteric nodularity and reticulation may be on the basis of ascites/ hemoperitoneum described earlier. Iain Soria Aug 14, 2019 16:21
--- NOTE | 2019-08-14 16:33 | Cardiac Electrophysiology PN ---
Assessment/Plan Assessment/Plan 1. Paroxysmal atrial fibrillation, AV paced on digoxin 0.125 mg daily and metoprolol 50 mg b.i.d . Anticoagulation resumed by Dr Soria 2. Status post Biotronik DDD pacemaker implantation by me in 2017 with Nl fx 3. History of hypertension. Stable 4. 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 Now on Dig, Coreg, Hydralazine and isordil May need pacer upgrade to ICD if EF remains less than 35% 5. Diabetes. 6. CVA in 1990. 7. Status post aortic valve replacement in 1985 and then again in 1995. 8. Abdominal pain due to bleeding peritoneum with moderate organized clot in the cul-de-sac, Evaluated by Dr. Soria who OKed to resume anticoagulation DW RN and Dr Soria Subjective Subjective Alert NAD. No CP or SOB. RN at bedside. Coumadin resumed per Dr Soria. Objective Last 24 Hour Vital Signs Date Time Temp Pulse Resp B/P (MAP) Pulse Ox O2 Delivery O2 Flow Rate FiO2 08/14/19 16:00 98.1 70 18 129/60 (83) 95 08/14/19 12:00 97.8 78 18 117/53 (74) 97 08/14/19 08:36 116/54 08/14/19 08:36 116/54 08/14/19 08:35 68 116/54 08/14/19 08:30 Room Air 08/14/19 08:00 98.2 68 19 116/54 (74) 95 08/14/19 04:00 97.5 88 19 130/68 (88) 99 08/14/19 00:00 97.7 89 19 125/64 (84) 97 08/13/19 21:22 121/74 08/13/19 21:21 71 127/64 08/13/19 21:00 Room Air 08/13/19 20:00 98.3 71 19 131/58 (82) 97 08/13/19 17:07 131/68 Intake and Output 08/13/19 08/14/19 19:00 07:00 Intake Total 840 ml 480 ml Balance 840 ml 480 ml Intake Oral 840 ml 480 ml # Voids 5 4 # Bowel Movements 1 Laboratory Tests Test 08/14/19 07:05 White Blood Count 3.8 K/UL (4.8-10.8) L Red Blood Count 3.09 M/UL (4.20-5.40) L Hemoglobin 9.1 G/DL (12.0-16.0) L Hematocrit 28.0 % (37.0-47.0) L Mean Corpuscular Volume 90 FL (80-99) Mean Corpuscular Hemoglobin 29.6 PG (27.0-31.0) Mean Corpuscular Hemoglobin Concent 32.7 G/DL (32.0-36.0) Red Cell Distribution Width 17.3 % (11.6-14.8) H Platelet Count 122 K/UL (150-450) L Mean Platelet Volume 6.6 FL (6.5-10.1) Neutrophils (%) (Auto) 71.5 % (45.0-75.0) Lymphocytes (%) (Auto) 16.8 % (20.0-45.0) L Monocytes (%) (Auto) 7.5 % (1.0-10.0) Eosinophils (%) (Auto) 3.0 % (0.0-3.0) Basophils (%) (Auto) 1.1 % (0.0-2.0) Prothrombin Time 11.0 SEC (9.30-11.50) Prothromb Time International Ratio 1.0 (0.9-1.1) Activated Partial Thromboplast Time 36 SEC (23-33) H Sodium Level 143 MMOL/L (136-145) Potassium Level 4.0 MMOL/L (3.5-5.1) Chloride Level 110 MMOL/L (98-107) H Carbon Dioxide Level 23 MMOL/L (21-32) Anion Gap 10 mmol/L (5-15) Blood Urea Nitrogen 29 mg/dL (7-18) H Creatinine 1.2 MG/DL (0.55-1.30) Estimat Glomerular Filtration Rate mL/min (>60) Glucose Level 133 MG/DL (74-106) H Calcium Level 8.6 MG/DL (8.5-10.1) Objective HEAD AND NECK: No JVD. LUNGS: Clear. CARDIOVASCULAR: Metallic S2 with soft systolic murmur. Sternotomy intact. Pacemaker in the left subclavian. ABDOMEN: Soft. EXTREMITIES: With no pitting edema. Osmany Carmona MD Aug 14, 2019 16:33
[2019-08-14] MEDS ORDERED: Warfarin Sodium 5mg ORAL ONE (17:00)
--- NOTE | 2019-08-14 19:11 | NUR ---
HAND-OFF: Report given to Deisy.
--- NOTE | 2019-08-14 19:29 | NUR ---
NURSE NOTES: Received patient in bed. Patient is chinese-speaking. A/O x4. Patient denies pain at this time. On room air and no distress noted. IV site in the Left hand noted with no swelling or redness. Can within reach. Call light within reach.
[2019-08-14 20:00] VITALS: BP 124/55
[2019-08-14] MEDS: Enoxaparin Sodium 300mg/3ml vial SUBQ SCH (20:39)
--- NOTE | 2019-08-14 21:21 | General Progress Note ---
Assessment/Plan Status: progressing Assessment/Plan: Assessment/Plan (1) Anemia ICD Codes: D64.9 - Anemia, unspecified SNOMED: 653643895 (2) Iron deficiency ICD Codes: E61.1 - Iron deficiency SNOMED: 12404785 (3) Hemoperitoneum, nontraumatic ICD Codes: K66.1 - Hemoperitoneum SNOMED: 57023651 (4) Epigastric pain ICD Codes: R10.13 - Epigastric pain SNOMED: 97378185 (5) Abdominal pain ICD Codes: R10.9 - Unspecified abdominal pain SNOMED: 62776311 Assessment/Plan No plans for any GI procedures at this time Follow-up surgical recommendations >> no noted surgical intervention at this time Follow-up cardiology recommendations 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, 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 Advance diet Bowel regimen of Colace and MiraLAX Continue PPI Sent for fecal occult blood stool to rule out any GI bleed Outpatient GI procedure Subjective Allergies: Coded Allergies: No Known Allergies (Unverified , 09/17/16) Subjective Feels OK tolerating PO no abd pain Objective Last 24 Hour Vital Signs Date Time Temp Pulse Resp B/P (MAP) Pulse Ox O2 Delivery O2 Flow Rate FiO2 08/14/19 20:37 124/55 08/14/19 20:37 72 124/55 08/14/19 17:13 129/60 08/14/19 16:00 98.1 70 18 129/60 (83) 95 08/14/19 12:00 97.8 78 18 117/53 (74) 97 08/14/19 08:36 116/54 08/14/19 08:36 116/54 08/14/19 08:35 68 116/54 08/14/19 08:30 Room Air 08/14/19 08:00 98.2 68 19 116/54 (74) 95 08/14/19 04:00 97.5 88 19 130/68 (88) 99 08/14/19 00:00 97.7 89 19 125/64 (84) 97 08/13/19 21:22 121/74 08/13/19 21:21 71 127/64 Intake and Output 08/13/19 08/14/19 19:00 07:00 Intake Total 840 ml 480 ml Balance 840 ml 480 ml Intake Oral 840 ml 480 ml # Voids 5 4 # Bowel Movements 1 Laboratory Tests 08/14/19 07:05: White Blood Count 3.8L, Red Blood Count 3.09L, Hemoglobin 9.1L, Hematocrit 28.0L , Mean Corpuscular Volume 90, Mean Corpuscular Hemoglobin 29.6, Mean Corpuscular Hemoglobin Concent 32.7, Red Cell Distribution Width 17.3H, Platelet Count 122L, Mean Platelet Volume 6.6, Neutrophils (%) (Auto) 71.5, Lymphocytes (%) (Auto) 16.8L, Monocytes (%) (Auto) 7.5, Eosinophils (%) (Auto) 3.0, Basophils (%) (Auto) 1.1, Prothrombin Time 11.0, Prothromb Time International Ratio 1.0, Activated Partial Thromboplast Time 36H, Sodium Level 143, Potassium Level 4.0, Chloride Level 110H, Carbon Dioxide Level 23, Anion Gap 10, Blood Urea Nitrogen 29H, Creatinine 1.2, Estimat Glomerular Filtration Rate , Glucose Level 133H, Calcium Level 8.6 Height (Feet): 5 Height (Inches): 2.00 Weight (Pounds): 101 Objective WDWN NCAT supple CTA RRR abd soft NT minimally distended no edema non focal Kishor Foley MD Aug 14, 2019 21:21
--- NOTE | 2019-08-14 21:33 | Pulmonology Progress Note ---
Assessment/Plan Problems: (1) Intra abdominal hemorrhage (2) Coagulopathy (3) Acute renal failure (4) Atrial fibrillation (5) HTN (hypertension) (6) Abdominal pain (7) Pacemaker (8) Aortic valve replaced (9) Status post mitral valve replacement (10) Cerebral vascular disease (11) Diabetes mellitus (12) Chronic anticoagulation Assessment/Plan h/h stable, off anticoagulation Blood sugar fairly controlled, symptomatic treatment v-paced, pacemaker will be interrogated check electrolytes symptomatic treatment Subjective ROS Limited/Unobtainable: No Constitutional: Reports: no symptoms HEENT: Repors: no symptoms Respiratory: Reports: no symptoms Allergies: Coded Allergies: No Known Allergies (Unverified , 09/17/16) Objective Last 24 Hour Vital Signs Date Time Temp Pulse Resp B/P (MAP) Pulse Ox O2 Delivery O2 Flow Rate FiO2 08/14/19 20:37 124/55 08/14/19 20:37 72 124/55 08/14/19 17:13 129/60 08/14/19 16:00 98.1 70 18 129/60 (83) 95 08/14/19 12:00 97.8 78 18 117/53 (74) 97 08/14/19 08:36 116/54 08/14/19 08:36 116/54 08/14/19 08:35 68 116/54 08/14/19 08:30 Room Air 08/14/19 08:00 98.2 68 19 116/54 (74) 95 08/14/19 04:00 97.5 88 19 130/68 (88) 99 08/14/19 00:00 97.7 89 19 125/64 (84) 97 Intake and Output 08/13/19 08/14/19 19:00 07:00 Intake Total 840 ml 480 ml Balance 840 ml 480 ml Intake Oral 840 ml 480 ml # Voids 5 4 # Bowel Movements 1 Objective General Appearance: WD/WN, no apparent distress Lines, tubes and drains: peripheral HEENT: normocephalic, atraumatic Neck: non-tender, normal alignment Respiratory/Chest: chest wall non-tender, lungs clear Breasts: no masses Cardiovascular/Chest: normal peripheral pulses Abdomen: non tender Extremities: normal range of motion Skin Exam: normal pigmentation Laboratory Tests 08/14/19 07:05: White Blood Count 3.8L, Red Blood Count 3.09L, Hemoglobin 9.1L, Hematocrit 28.0L , Mean Corpuscular Volume 90, Mean Corpuscular Hemoglobin 29.6, Mean Corpuscular Hemoglobin Concent 32.7, Red Cell Distribution Width 17.3H, Platelet Count 122L, Mean Platelet Volume 6.6, Neutrophils (%) (Auto) 71.5, Lymphocytes (%) (Auto) 16.8L, Monocytes (%) (Auto) 7.5, Eosinophils (%) (Auto) 3.0, Basophils (%) (Auto) 1.1, Prothrombin Time 11.0, Prothromb Time International Ratio 1.0, Activated Partial Thromboplast Time 36H, Sodium Level 143, Potassium Level 4.0, Chloride Level 110H, Carbon Dioxide Level 23, Anion Gap 10, Blood Urea Nitrogen 29H, Creatinine 1.2, Estimat Glomerular Filtration Rate , Glucose Level 133H, Calcium Level 8.6 Current Medications Medications (Trade) Dose Ordered Sig/Grisel Route PRN Reason Start Time Stop Time Status Last Admin Dose Admin Acetaminophen (Tylenol) 650 mg Q4H PRN ORAL fever 08/08/19 17:30 09/07/19 17:29 Allopurinol (Allopurinol) 150 mg DAILY ORAL 08/12/19 09:00 09/11/19 08:59 08/14/19 08:35 Carvedilol (Coreg) 12.5 mg EVERY 12 HOURS ORAL 08/10/19 21:00 09/09/19 20:59 08/14/19 20:37 Dextrose (Dextrose 50%) 25 ml Q30M PRN IV Hypoglycemia 08/08/19 17:30 09/07/19 17:29 Dextrose (Dextrose 50%) 50 ml Q30M PRN IV Hypoglycemia 08/08/19 17:30 09/07/19 17:29 Docusate Sodium (Colace) 100 mg TID ORAL 08/10/19 13:00 09/08/19 17:59 08/14/19 17:05 Enoxaparin Sodium (Lovenox) 50 mg Q24H SUBQ 08/13/19 21:00 09/12/19 20:59 08/14/19 20:39 Folic Acid (Folate) 2 mg DAILY ORAL 08/10/19 10:15 09/09/19 10:14 08/14/19 08:35 Hydralazine HCl (Apresoline) 10 mg Q12HR ORAL 08/11/19 21:00 09/09/19 17:59 08/14/19 20:37 Insulin Aspart (NovoLOG) BEFORE MEALS AND HS SUBQ 08/08/19 21:00 09/07/19 20:59 08/14/19 20:39 Isosorbide Dinitrate (Isordil) 10 mg BID ORAL 08/10/19 18:00 09/09/19 17:59 08/14/19 17:13 Liothyronine Sodium (Cytomel) 5 mcg DAILY ORAL 08/11/19 09:00 09/10/19 08:59 08/14/19 08:35 Nitroglycerin (Ntg) 0.4 mg Q5M X 3 DOSES PRN SL Prn Chest Pain 08/08/19 17:30 09/07/19 17:29 Ondansetron HCl (Zofran) 4 mg Q6H PRN IVP Nausea & Vomiting 08/08/19 17:30 09/07/19 17:29 Pantoprazole (Protonix) 40 mg BID ORAL 08/09/19 18:00 09/08/19 17:59 08/14/19 17:13 Polyethylene Glycol (Miralax) 17 gm HSPRN PRN ORAL Constipation 08/08/19 21:00 09/07/19 20:59 Temazepam (Restoril) 15 mg HSPRN PRN ORAL Insomnia 08/14/19 16:45 08/21/19 16:44 Warfarin Sodium (Coumadin per pharmacy) 1 ea DAILY PRN MISC Per rx protocol 08/13/19 12:00 09/12/19 11:59 Remedios Albarran MD Aug 14, 2019 21:33
[2019-08-15] VITALS: BP 120/52
[2019-08-15 04:00] VITALS: BP 116/53
[2019-08-15] MEDS: NovoLOG Insulin Flexpen SUBQ SCH ×4 (06:04→20:23)
[2019-08-15 06:36] LABS: BASOPHILS % (AUTO) 1.5 % (0.0-2.0); EOSINOPHILS % (AUTO) 2.8 % (0.0-3.0); HEMATOCRIT 29.9 % (37.0-47.0); HEMOGLOBIN 9.4 G/DL (12.0-16.0); LYMPHOCYTES % (AUTO) 14.3 % (20.0-45.0); MEAN CORPUSCULAR VOLUME 91 FL (80-99); MONOCYTES % (AUTO) 8.5 % (1.0-10.0); NEUTROPHILS % (AUTO) 72.9 % (45.0-75.0); PLATELET COUNT 137 K/UL (150-450); RED BLOOD COUNT 3.28 M/UL (4.20-5.40); RED CELL DISTRIBUTION WIDTH 17.7 % (11.6-14.8); WHITE BLOOD COUNT 4.5 K/UL (4.8-10.8)
[2019-08-15 06:56] LABS: INR 1.1 (0.9-1.1)
[2019-08-15 06:58] LABS: ANION GAP 10 mmol/L (5-15); BLOOD UREA NITROGEN 34 mg/dL (7-18); CALCIUM 9.1 MG/DL (8.5-10.1); CARBON DIOXIDE 25 MMOL/L (21-32); CHLORIDE 111 MMOL/L (98-107); CREATININE 1.2 MG/DL (0.55-1.30); POTASSIUM 4.7 MMOL/L (3.5-5.1); SODIUM 145 MMOL/L (136-145)
--- NOTE | 2019-08-15 07:20 | NUR ---
HAND-OFF: Report given to Henrietta TREVINO.
--- NOTE | 2019-08-15 07:30 | NUR ---
NURSE NOTES: Received pt awake and alert on the bed is eating breakfast. pt is in RA, no SOB or acute respiratory distress noted. pt has intact iv access LH 22G SL. no complain of pain at this moment. All needs attended, bed is locked and is in the lowest position, call light within easy reach. will continue to monitor.
[2019-08-15 08:00] VITALS: BP 133/58
[2019-08-15] MEDS: Carvedilol 12.5mg tab ORAL SCH ×2 (09:24→20:20)
[2019-08-15] MEDS: HydrALAZINE 10mg Tab ORAL SCH ×2 (09:25→20:21)
[2019-08-15] MEDS: Liothyronine 5mcg tab ORAL SCH (09:25)
[2019-08-15] MEDS: Docusate 100mg cap ORAL SCH ×3 (09:25→17:32)
--- NOTE | 2019-08-15 10:07 | General Progress Note ---
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 Bowel regimen of Colace and MiraLAX Continue PPI Sent for fecal occult blood stool to rule out any GI bleed Outpatient GI procedure fu cardiology recs Subjective ROS Limited/Unobtainable: Yes Allergies: Coded Allergies: No Known Allergies (Unverified , 09/17/16) Objective Last 24 Hour Vital Signs Date Time Temp Pulse Resp B/P (MAP) Pulse Ox O2 Delivery O2 Flow Rate FiO2 08/15/19 09:25 133/58 08/15/19 09:25 133/58 08/15/19 09:24 71 133/58 08/15/19 08:00 98.2 71 18 133/58 (83) 98 08/15/19 04:00 98.4 74 20 116/53 (74) 96 08/15/19 00:00 98.4 76 19 120/52 (74) 95 08/14/19 21:00 Room Air 08/14/19 20:37 124/55 08/14/19 20:37 72 124/55 08/14/19 20:00 98.4 72 19 124/55 (78) 96 08/14/19 17:13 129/60 08/14/19 16:00 98.1 70 18 129/60 (83) 95 08/14/19 12:00 97.8 78 18 117/53 (74) 97 Intake and Output 08/14/19 08/15/19 19:00 07:00 Intake Total 1000 ml Balance 1000 ml Other 1000 ml # Voids 2 # Bowel Movements 1 Laboratory Tests 08/14/19 21:35: Stool Occult Blood Negative 08/15/19 06:05: White Blood Count 4.5L, Red Blood Count 3.28L, Hemoglobin 9.4L, Hematocrit 29.9L , Mean Corpuscular Volume 91, Mean Corpuscular Hemoglobin 28.8, Mean Corpuscular Hemoglobin Concent 31.5L, Red Cell Distribution Width 17.7H, Platelet Count 137L, Mean Platelet Volume 6.6, Neutrophils (%) (Auto) 72.9, Lymphocytes (%) (Auto) 14.3L, Monocytes (%) (Auto) 8.5, Eosinophils (%) (Auto) 2.8, Basophils (%) (Auto) 1.5, Prothrombin Time 11.4, Prothromb Time International Ratio 1.1, Sodium Level 145, Potassium Level 4.7, Chloride Level 111H, Carbon Dioxide Level 25, Anion Gap 10, Blood Urea Nitrogen 34H, Creatinine 1.2, Estimat Glomerular Filtration Rate , Glucose Level 142H, Calcium Level 9.1 Height (Feet): 5 Height (Inches): 2.00 Weight (Pounds): 100 General Appearance: no apparent distress EENT: normal ENT inspection Neck: supple Cardiovascular: normal rate Respiratory/Chest: decreased breath sounds Abdomen: normal bowel sounds, non tender, soft Extremities: non-tender Charan Pimentel MD Aug 15, 2019 10:07
--- NOTE | 2019-08-15 10:19 | Nephrology Progress Note ---
Assessment/Plan Problem List: (1) Acute renal failure Assessment: resolved (2) Diabetic nephropathy (3) Diabetes mellitus (4) HTN (hypertension) (5) Pacemaker Assessment Renal failure ? Acute on chronic Pelvic hemoperitoneum. Epigastric pain. Nausea. Hypertension. Diabetes type 2. Atrial fibrillation. Hypercholesterolemia. Cerebrovascular disease. 1990 Plan folic acid- cytomel- Slow Hydrate- Anemia avila- transfused monitor renal parameters 2D echo Pending Kidney [facility] medical Renal disease med surg- DC planning Subjective ROS Limited/Unobtainable: No Constitutional: Reports: malaise Objective Objective Last 24 Hour Vital Signs Date Time Temp Pulse Resp B/P (MAP) Pulse Ox O2 Delivery O2 Flow Rate FiO2 08/15/19 09:25 133/58 08/15/19 09:25 133/58 08/15/19 09:24 71 133/58 08/15/19 08:00 98.2 71 18 133/58 (83) 98 08/15/19 04:00 98.4 74 20 116/53 (74) 96 08/15/19 00:00 98.4 76 19 120/52 (74) 95 08/14/19 21:00 Room Air 08/14/19 20:37 124/55 08/14/19 20:37 72 124/55 08/14/19 20:00 98.4 72 19 124/55 (78) 96 08/14/19 17:13 129/60 08/14/19 16:00 98.1 70 18 129/60 (83) 95 08/14/19 12:00 97.8 78 18 117/53 (74) 97 Intake and Output 08/14/19 08/15/19 19:00 07:00 Intake Total 1000 ml Balance 1000 ml Other 1000 ml # Voids 2 # Bowel Movements 1 Laboratory Tests 08/14/19 21:35: Stool Occult Blood Negative 08/15/19 06:05: White Blood Count 4.5L, Red Blood Count 3.28L, Hemoglobin 9.4L, Hematocrit 29.9L , Mean Corpuscular Volume 91, Mean Corpuscular Hemoglobin 28.8, Mean Corpuscular Hemoglobin Concent 31.5L, Red Cell Distribution Width 17.7H, Platelet Count 137L, Mean Platelet Volume 6.6, Neutrophils (%) (Auto) 72.9, Lymphocytes (%) (Auto) 14.3L, Monocytes (%) (Auto) 8.5, Eosinophils (%) (Auto) 2.8, Basophils (%) (Auto) 1.5, Prothrombin Time 11.4, Prothromb Time International Ratio 1.1, Sodium Level 145, Potassium Level 4.7, Chloride Level 111H, Carbon Dioxide Level 25, Anion Gap 10, Blood Urea Nitrogen 34H, Creatinine 1.2, Estimat Glomerular Filtration Rate , Glucose Level 142H, Calcium Level 9.1 Height (Feet): 5 Height (Inches): 2.00 Weight (Pounds): 100 General Appearance: no apparent distress Objective no change Kirby Rivera MD Aug 15, 2019 10:19
[2019-08-15 12:00] VITALS: BP 130/62
--- NOTE | 2019-08-15 13:22 | Surgery Progress Note ---
Surgery Progress Note Subjective Symptoms: improved, pain absent, tolerating diet, voiding well, passing flatus , BM Objective Last 24 Hour Vital Signs Date Time Temp Pulse Resp B/P (MAP) Pulse Ox O2 Delivery O2 Flow Rate FiO2 08/15/19 12:00 98.1 80 18 130/62 (84) 98 08/15/19 09:25 133/58 08/15/19 09:25 133/58 08/15/19 09:24 71 133/58 08/15/19 09:00 Room Air 08/15/19 08:00 98.2 71 18 133/58 (83) 98 08/15/19 04:00 98.4 74 20 116/53 (74) 96 08/15/19 00:00 98.4 76 19 120/52 (74) 95 08/14/19 21:00 Room Air 08/14/19 20:37 124/55 08/14/19 20:37 72 124/55 08/14/19 20:00 98.4 72 19 124/55 (78) 96 08/14/19 17:13 129/60 08/14/19 16:00 98.1 70 18 129/60 (83) 95 I&O Intake and Output 08/14/19 08/15/19 19:00 07:00 Intake Total 1000 ml Balance 1000 ml Other 1000 ml # Voids 2 # Bowel Movements 1 Cardiovascular: RSR Respiratory: clear Abdomen: soft, distended, non-tender, present bowel sounds Extremities: no edema, no tenderness, no cyanosis Laboratory Tests Test 08/14/19 21:35 08/15/19 06:05 Stool Occult Blood Negative (NEGATIVE) White Blood Count 4.5 K/UL (4.8-10.8) L Red Blood Count 3.28 M/UL (4.20-5.40) L Hemoglobin 9.4 G/DL (12.0-16.0) L Hematocrit 29.9 % (37.0-47.0) L Mean Corpuscular Volume 91 FL (80-99) Mean Corpuscular Hemoglobin 28.8 PG (27.0-31.0) Mean Corpuscular Hemoglobin Concent 31.5 G/DL (32.0-36.0) L Red Cell Distribution Width 17.7 % (11.6-14.8) H Platelet Count 137 K/UL (150-450) L Mean Platelet Volume 6.6 FL (6.5-10.1) Neutrophils (%) (Auto) 72.9 % (45.0-75.0) Lymphocytes (%) (Auto) 14.3 % (20.0-45.0) L Monocytes (%) (Auto) 8.5 % (1.0-10.0) Eosinophils (%) (Auto) 2.8 % (0.0-3.0) Basophils (%) (Auto) 1.5 % (0.0-2.0) Prothrombin Time 11.4 SEC (9.30-11.50) Prothromb Time International Ratio 1.1 (0.9-1.1) Sodium Level 145 MMOL/L (136-145) Potassium Level 4.7 MMOL/L (3.5-5.1) Chloride Level 111 MMOL/L (98-107) H Carbon Dioxide Level 25 MMOL/L (21-32) Anion Gap 10 mmol/L (5-15) Blood Urea Nitrogen 34 mg/dL (7-18) H Creatinine 1.2 MG/DL (0.55-1.30) Estimat Glomerular Filtration Rate mL/min (>60) Glucose Level 142 MG/DL (74-106) H Calcium Level 9.1 MG/DL (8.5-10.1) Plan Problems: (1) Abdominal pain Assessment & Plan: 73-year-old female with abdominal pain likely due to intra- abdominal hemorrhage from coagulopathy. No trauma. H&H stable. Exam with mild tenderness but no peritonitis. No acute surgical invention recommend at this time Trend H&H We will follow with serial abdominal exams Reverse coagulopathy-appropriate now Vitamin K and FFP as needed Okay to start clear liquids Cardiology consultation Nephrology consultation worsening renal insufficiency IV fluids Advance diet Bowel regimen resume anticoag lovenox transition to coumadin We will follow with recommendations Thank you for let me participate in patient's care (2) Intra abdominal hemorrhage Assessment & Plan: There is a severe cardiomegaly with biatrial chamber enlargement. 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 Pacemaker is present. There is a hiatal hernia. The lung bases are clear. The IVC and hepatic veins are markedly enlarged. There are generalized reticular densities throughout the mesentery and omentum nonspecific. There is some free fluid within the pelvis especially in the area of the cul-de-sac posterior to the uterus. The fluid has a areas of increased density, suspicious for blood. The nature of the hemoperitoneum is not known and the clinical correlation is needed. There are no signs of trauma or any history of such. There is a hypodensity within the left hemipelvis measuring about 1.7 cm which could be an ovarian cyst. Consider rupture of an ovarian cyst or mass is certainly possible. There may be 1 cm focus of fat (image #[id number]/series [id number]) in association with the left ovary and adjacent to the cystic focus suggesting the possibility of an ovarian dermoid. There is a calcified fibroid within the uterus measuring 1.6 cm. IMPRESSION: Pelvic hemoperitoneum with moderate organized clot in the cul-de-sac. Nature of this is not known but consider possibility of a ruptured ovarian cyst and/or mass. Question of an ovarian dermoid on the left side. Differential includes trauma, iatrogenic causes from recent surgery/procedures, coagulopathies, antiocoagulation Rx or other causes of hemoperitoneum. Calcified uterine fibroid. Severe cardiomyopathy with biatrial chamber enlargement. Distended IVC and hepatic veins probably on the basis of tricuspid regurgitation or right heart failure. Atherosclerotic vascular disease. Pacemaker. Hiatal hernia. Mesenteric nodularity and reticulation may be on the basis of ascites/ hemoperitoneum described earlier. Iain Soria Aug 15, 2019 13:22
--- NOTE | 2019-08-15 14:39 | Pulmonology Progress Note ---
Assessment/Plan Problems: (1) Intra abdominal hemorrhage (2) Coagulopathy (3) Acute renal failure (4) Atrial fibrillation (5) HTN (hypertension) (6) Abdominal pain (7) Pacemaker (8) Aortic valve replaced (9) Status post mitral valve replacement (10) Cerebral vascular disease (11) Diabetes mellitus (12) Chronic anticoagulation Assessment/Plan coumadin restarted, f/u INR daily h/h stable, off anticoagulation Blood sugar fairly controlled, symptomatic treatment v-paced, pacemaker will be interrogated check electrolytes symptomatic treatment Subjective ROS Limited/Unobtainable: No Constitutional: Reports: no symptoms HEENT: Repors: no symptoms Respiratory: Reports: no symptoms Allergies: Coded Allergies: No Known Allergies (Unverified , 09/17/16) Objective Last 24 Hour Vital Signs Date Time Temp Pulse Resp B/P (MAP) Pulse Ox O2 Delivery O2 Flow Rate FiO2 08/15/19 12:00 98.1 80 18 130/62 (84) 98 08/15/19 09:25 133/58 08/15/19 09:25 133/58 08/15/19 09:24 71 133/58 08/15/19 09:00 Room Air 08/15/19 08:00 98.2 71 18 133/58 (83) 98 08/15/19 04:00 98.4 74 20 116/53 (74) 96 08/15/19 00:00 98.4 76 19 120/52 (74) 95 08/14/19 21:00 Room Air 08/14/19 20:37 124/55 08/14/19 20:37 72 124/55 08/14/19 20:00 98.4 72 19 124/55 (78) 96 08/14/19 17:13 129/60 08/14/19 16:00 98.1 70 18 129/60 (83) 95 Intake and Output 08/14/19 08/15/19 19:00 07:00 Intake Total 1000 ml Balance 1000 ml Other 1000 ml # Voids 2 # Bowel Movements 1 Objective General Appearance: WD/WN, no apparent distress Lines, tubes and drains: peripheral HEENT: normocephalic, atraumatic Neck: non-tender, normal alignment Respiratory/Chest: chest wall non-tender, lungs clear Breasts: no masses Cardiovascular/Chest: normal peripheral pulses Abdomen: non tender Extremities: normal range of motion Skin Exam: normal pigmentation Laboratory Tests 08/14/19 21:35: Stool Occult Blood Negative 08/15/19 06:05: White Blood Count 4.5L, Red Blood Count 3.28L, Hemoglobin 9.4L, Hematocrit 29.9L , Mean Corpuscular Volume 91, Mean Corpuscular Hemoglobin 28.8, Mean Corpuscular Hemoglobin Concent 31.5L, Red Cell Distribution Width 17.7H, Platelet Count 137L, Mean Platelet Volume 6.6, Neutrophils (%) (Auto) 72.9, Lymphocytes (%) (Auto) 14.3L, Monocytes (%) (Auto) 8.5, Eosinophils (%) (Auto) 2.8, Basophils (%) (Auto) 1.5, Prothrombin Time 11.4, Prothromb Time International Ratio 1.1, Sodium Level 145, Potassium Level 4.7, Chloride Level 111H, Carbon Dioxide Level 25, Anion Gap 10, Blood Urea Nitrogen 34H, Creatinine 1.2, Estimat Glomerular Filtration Rate , Glucose Level 142H, Calcium Level 9.1 Current Medications Medications (Trade) Dose Ordered Sig/Grisel Route PRN Reason Start Time Stop Time Status Last Admin Dose Admin Acetaminophen (Tylenol) 650 mg Q4H PRN ORAL fever 08/08/19 17:30 09/07/19 17:29 Allopurinol (Allopurinol) 150 mg DAILY ORAL 08/12/19 09:00 09/11/19 08:59 08/15/19 09:24 Carvedilol (Coreg) 12.5 mg EVERY 12 HOURS ORAL 08/10/19 21:00 09/09/19 20:59 08/15/19 09:24 Dextrose (Dextrose 50%) 25 ml Q30M PRN IV Hypoglycemia 08/08/19 17:30 09/07/19 17:29 Dextrose (Dextrose 50%) 50 ml Q30M PRN IV Hypoglycemia 08/08/19 17:30 09/07/19 17:29 Docusate Sodium (Colace) 100 mg TID ORAL 08/10/19 13:00 09/08/19 17:59 08/15/19 12:11 Enoxaparin Sodium (Lovenox) 50 mg Q24H SUBQ 08/13/19 21:00 09/12/19 20:59 08/14/19 20:39 Folic Acid (Folate) 2 mg DAILY ORAL 08/10/19 10:15 09/09/19 10:14 08/15/19 09:25 Hydralazine HCl (Apresoline) 10 mg Q12HR ORAL 08/11/19 21:00 09/09/19 17:59 08/15/19 09:25 Insulin Aspart (NovoLOG) BEFORE MEALS AND HS SUBQ 08/08/19 21:00 09/07/19 20:59 08/15/19 12:14 Isosorbide Dinitrate (Isordil) 10 mg BID ORAL 08/10/19 18:00 09/09/19 17:59 08/15/19 09:25 Liothyronine Sodium (Cytomel) 5 mcg DAILY ORAL 08/11/19 09:00 09/10/19 08:59 08/15/19 09:25 Nitroglycerin (Ntg) 0.4 mg Q5M X 3 DOSES PRN SL Prn Chest Pain 08/08/19 17:30 09/07/19 17:29 Ondansetron HCl (Zofran) 4 mg Q6H PRN IVP Nausea & Vomiting 08/08/19 17:30 09/07/19 17:29 Pantoprazole (Protonix) 40 mg BID ORAL 08/09/19 18:00 09/08/19 17:59 08/15/19 09:24 Polyethylene Glycol (Miralax) 17 gm HSPRN PRN ORAL Constipation 08/08/19 21:00 09/07/19 20:59 Temazepam (Restoril) 15 mg HSPRN PRN ORAL Insomnia 08/14/19 16:45 08/21/19 16:44 Warfarin Sodium (Coumadin per pharmacy) 1 ea DAILY PRN MISC Per rx protocol 08/13/19 12:00 09/12/19 11:59 Warfarin Sodium (Coumadin) 5 mg ONCE ORAL 08/15/19 17:00 08/15/19 19:00 Remedios Albarran MD Aug 15, 2019 14:39
--- NOTE | 2019-08-15 15:49 | Cardiac Electrophysiology PN ---
Assessment/Plan Assessment/Plan 1. Paroxysmal atrial fibrillation, AV paced on digoxin 0.125 mg daily and metoprolol 50 mg b.i.d and coumadin 2. Status post Biotronik DDD pacemaker implantation by me in 2017 with Nl fx 3. History of hypertension. Stable 4. 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 Now on Dig, Coreg, Hydralazine and isordil May need pacer upgrade to ICD if EF remains less than 35% 5. Diabetes. 6. CVA in 1990. 7. Status post aortic valve replacement in 1985 and then again in 1995. 8. Abdominal pain due to bleeding peritoneum with moderate organized clot in the cul-de-sac, Evaluated by Dr. Soria who OKed to resume anticoagulation KANDY RN Subjective Subjective Alert NAD. No CP or SOB. RN at bedside on Coumadin Objective Last 24 Hour Vital Signs Date Time Temp Pulse Resp B/P (MAP) Pulse Ox O2 Delivery O2 Flow Rate FiO2 08/15/19 12:00 98.1 80 18 130/62 (84) 98 08/15/19 09:25 133/58 08/15/19 09:25 133/58 08/15/19 09:24 71 133/58 08/15/19 09:00 Room Air 08/15/19 08:00 98.2 71 18 133/58 (83) 98 08/15/19 04:00 98.4 74 20 116/53 (74) 96 08/15/19 00:00 98.4 76 19 120/52 (74) 95 08/14/19 21:00 Room Air 08/14/19 20:37 124/55 08/14/19 20:37 72 124/55 08/14/19 20:00 98.4 72 19 124/55 (78) 96 08/14/19 17:13 129/60 08/14/19 16:00 98.1 70 18 129/60 (83) 95 Intake and Output 08/14/19 08/15/19 19:00 07:00 Intake Total 1000 ml Balance 1000 ml Other 1000 ml # Voids 2 # Bowel Movements 1 Laboratory Tests Test 08/14/19 21:35 08/15/19 06:05 Stool Occult Blood Negative (NEGATIVE) White Blood Count 4.5 K/UL (4.8-10.8) L Red Blood Count 3.28 M/UL (4.20-5.40) L Hemoglobin 9.4 G/DL (12.0-16.0) L Hematocrit 29.9 % (37.0-47.0) L Mean Corpuscular Volume 91 FL (80-99) Mean Corpuscular Hemoglobin 28.8 PG (27.0-31.0) Mean Corpuscular Hemoglobin Concent 31.5 G/DL (32.0-36.0) L Red Cell Distribution Width 17.7 % (11.6-14.8) H Platelet Count 137 K/UL (150-450) L Mean Platelet Volume 6.6 FL (6.5-10.1) Neutrophils (%) (Auto) 72.9 % (45.0-75.0) Lymphocytes (%) (Auto) 14.3 % (20.0-45.0) L Monocytes (%) (Auto) 8.5 % (1.0-10.0) Eosinophils (%) (Auto) 2.8 % (0.0-3.0) Basophils (%) (Auto) 1.5 % (0.0-2.0) Prothrombin Time 11.4 SEC (9.30-11.50) Prothromb Time International Ratio 1.1 (0.9-1.1) Sodium Level 145 MMOL/L (136-145) Potassium Level 4.7 MMOL/L (3.5-5.1) Chloride Level 111 MMOL/L (98-107) H Carbon Dioxide Level 25 MMOL/L (21-32) Anion Gap 10 mmol/L (5-15) Blood Urea Nitrogen 34 mg/dL (7-18) H Creatinine 1.2 MG/DL (0.55-1.30) Estimat Glomerular Filtration Rate mL/min (>60) Glucose Level 142 MG/DL (74-106) H Calcium Level 9.1 MG/DL (8.5-10.1) Objective HEAD AND NECK: No JVD. LUNGS: Clear. CARDIOVASCULAR: Metallic S2 with soft systolic murmur. Sternotomy intact. Pacemaker in the left subclavian. ABDOMEN: Soft. EXTREMITIES: With no pitting edema. Osmany Carmona MD Aug 15, 2019 15:49
[2019-08-15 16:00] VITALS: BP 132/71
--- NOTE | 2019-08-15 16:32 | NUR ---
CASE MANAGEMENT: REVIEW 08/15/19 SI: HTN /PELVIC HEMOPERITONEUM / AFIB WITH RVR 98.2 71 18 133/58 98% ON RA BG 142 WBC 4.5 H/H 9.4/29.9 BUN 34 IS: PROTONIX BID ISORDIL PO BID COREG PO BID NOVOLOG SQ AC&HS HYDRALAZINE PO BID FOLATE PO QD LOVENOX SQ Q24HR \: 4E MED SURG DCP: HOME WHEN MEDICALLY CLEARED PLAN: MAY NEED ICD IF EF 35%
[2019-08-15] MEDS ORDERED: Warfarin Sodium 5mg ORAL SCH (17:00)
--- NOTE | 2019-08-15 18:54 | Internal Med Progress Note ---
Subjective Date of Service: Aug 15, 2019 Physician Name Sher Hansen Attending Physician Kobi Real MD Current Medications Medications (Trade) Dose Ordered Sig/Grisel Route PRN Reason Start Time Stop Time Status Last Admin Dose Admin Acetaminophen (Tylenol) 650 mg Q4H PRN ORAL fever 08/08/19 17:30 09/07/19 17:29 Allopurinol (Allopurinol) 150 mg DAILY ORAL 08/12/19 09:00 09/11/19 08:59 08/15/19 09:24 Carvedilol (Coreg) 12.5 mg EVERY 12 HOURS ORAL 08/10/19 21:00 09/09/19 20:59 08/15/19 09:24 Dextrose (Dextrose 50%) 25 ml Q30M PRN IV Hypoglycemia 08/08/19 17:30 09/07/19 17:29 Dextrose (Dextrose 50%) 50 ml Q30M PRN IV Hypoglycemia 08/08/19 17:30 09/07/19 17:29 Docusate Sodium (Colace) 100 mg TID ORAL 08/10/19 13:00 09/08/19 17:59 08/15/19 12:11 Enoxaparin Sodium (Lovenox) 50 mg Q24H SUBQ 08/13/19 21:00 09/12/19 20:59 08/14/19 20:39 Folic Acid (Folate) 2 mg DAILY ORAL 08/10/19 10:15 09/09/19 10:14 08/15/19 09:25 Hydralazine HCl (Apresoline) 10 mg Q12HR ORAL 08/11/19 21:00 09/09/19 17:59 08/15/19 09:25 Insulin Aspart (NovoLOG) BEFORE MEALS AND HS SUBQ 08/08/19 21:00 09/07/19 20:59 08/15/19 17:31 Isosorbide Dinitrate (Isordil) 10 mg BID ORAL 08/10/19 18:00 09/09/19 17:59 08/15/19 17:26 Liothyronine Sodium (Cytomel) 5 mcg DAILY ORAL 08/11/19 09:00 09/10/19 08:59 08/15/19 09:25 Nitroglycerin (Ntg) 0.4 mg Q5M X 3 DOSES PRN SL Prn Chest Pain 08/08/19 17:30 09/07/19 17:29 Ondansetron HCl (Zofran) 4 mg Q6H PRN IVP Nausea & Vomiting 08/08/19 17:30 09/07/19 17:29 Pantoprazole (Protonix) 40 mg BID ORAL 08/09/19 18:00 09/08/19 17:59 08/15/19 17:25 Polyethylene Glycol (Miralax) 17 gm HSPRN PRN ORAL Constipation 08/08/19 21:00 09/07/19 20:59 Temazepam (Restoril) 15 mg HSPRN PRN ORAL Insomnia 08/14/19 16:45 08/21/19 16:44 Warfarin Sodium (Coumadin per pharmacy) 1 ea DAILY PRN MISC Per rx protocol 08/13/19 12:00 09/12/19 11:59 Warfarin Sodium (Coumadin) 5 mg ONCE ORAL 08/15/19 17:00 08/15/19 19:00 08/15/19 17:25 Allergies: Coded Allergies: No Known Allergies (Unverified , 09/17/16) ROS Limited/Unobtainable: No Constitutional: Reports: no symptoms HEENT: Reports: no symptoms Cardiovascular: Reports: no symptoms Respiratory: Reports: no symptoms Gastrointestinal/Abdominal: Reports: no symptoms Genitourinary: Reports: no symptoms Neurologic/Psychiatric: Reports: no symptoms Subjective 73 YO F admitted with abdominal pain. Now pelvic hemoperitoneum and CHF. Cover for Int Sunny-Dr Real Objective Last Vital Signs Date Time Temp Pulse Resp B/P (MAP) Pulse Ox O2 Delivery O2 Flow Rate FiO2 08/15/19 17:26 132/71 08/15/19 16:00 98.3 82 18 97 08/15/19 09:00 Room Air 08/09/19 09:00 Laboratory Tests Test 08/14/19 21:35 08/15/19 06:05 08/15/19 17:30 Stool Occult Blood Negative (NEGATIVE) Pending White Blood Count 4.5 K/UL (4.8-10.8) L Red Blood Count 3.28 M/UL (4.20-5.40) L Hemoglobin 9.4 G/DL (12.0-16.0) L Hematocrit 29.9 % (37.0-47.0) L Mean Corpuscular Volume 91 FL (80-99) Mean Corpuscular Hemoglobin 28.8 PG (27.0-31.0) Mean Corpuscular Hemoglobin Concent 31.5 G/DL (32.0-36.0) L Red Cell Distribution Width 17.7 % (11.6-14.8) H Platelet Count 137 K/UL (150-450) L Mean Platelet Volume 6.6 FL (6.5-10.1) Neutrophils (%) (Auto) 72.9 % (45.0-75.0) Lymphocytes (%) (Auto) 14.3 % (20.0-45.0) L Monocytes (%) (Auto) 8.5 % (1.0-10.0) Eosinophils (%) (Auto) 2.8 % (0.0-3.0) Basophils (%) (Auto) 1.5 % (0.0-2.0) Prothrombin Time 11.4 SEC (9.30-11.50) Prothromb Time International Ratio 1.1 (0.9-1.1) Sodium Level 145 MMOL/L (136-145) Potassium Level 4.7 MMOL/L (3.5-5.1) Chloride Level 111 MMOL/L (98-107) H Carbon Dioxide Level 25 MMOL/L (21-32) Anion Gap 10 mmol/L (5-15) Blood Urea Nitrogen 34 mg/dL (7-18) H Creatinine 1.2 MG/DL (0.55-1.30) Estimat Glomerular Filtration Rate mL/min (>60) Glucose Level 142 MG/DL (74-106) H Calcium Level 9.1 MG/DL (8.5-10.1) Intake and Output 08/14/19 08/15/19 19:00 07:00 Intake Total 1000 ml Balance 1000 ml Other 1000 ml # Voids 2 # Bowel Movements 1 Objective General Appearance: WD/WN, no apparent distress, alert EENT: PERRL/EOMI, normal ENT inspection Neck: non-tender, normal alignment, supple, normal inspection Cardiovascular: normal peripheral pulses, normal rate, regular rhythm, no gallop/murmur, no JVD Respiratory/Chest: chest wall non-tender, lungs clear, normal breath sounds, no respiratory distress, no accessory muscle use Abdomen: normal bowel sounds, decreased bowel sounds, guarding, tender Extremities: normal range of motion, non-tender Neurologic: crepe sole scourer II-XII 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, no motor/sensory deficits Skin: normal pigmentation, warm/dry Assessment/Plan Problem List: (1) Type II diabetes mellitus Assessment & Plan: continue novolog sliding scale. (2) Hemoperitoneum, nontraumatic Assessment & Plan: Due to coagulopathy due to coumadin. Hold coumadin. Follow hemoglobin. Non surgical-see surgery note=Dr Soria. (3) Epigastric pain (4) Nausea Assessment & Plan: tolerating clear liquid diet-see GI note=Dr Pimentel (5) HTN (hypertension) (6) Atrial fibrillation Assessment & Plan: Hold digoxin due to toxicity per cardiology (7) Coagulopathy Assessment & Plan: Lovenox subcut until coumadin therapeutic (8) Cerebral vascular disease (9) Pacemaker Assessment & Plan: EP Cardiology=Dr Carmona. Await pacemaker interrogation (10) Status post mitral valve replacement (11) Renal failure Assessment & Plan: Followed by nephrology =Dr Rivera (12) CHF (congestive heart failure) Assessment & Plan: BNP>2000. LVEF=30-35%. Cardiology consult=Dr Carmona Assessment/Plan Discharge planning: home health Sher Hansen MD Aug 15, 2019 18:54
--- NOTE | 2019-08-15 19:25 | NUR ---
HAND-OFF: Report given to PARTH TREVINO. Pt is awake and stable.
[2019-08-15 20:00] VITALS: BP 127/60
--- NOTE | 2019-08-15 20:00 | NUR ---
NURSE NOTES: Received patient awake in bed, no s/s of acute distress, no c/o pain at this time. IV access asymptomatic. Bed low and locked, non slips socks on, 2 siderails up.
[2019-08-15] MEDS: Enoxaparin Sodium 300mg/3ml vial SUBQ SCH (21:58)
[2019-08-16] VITALS: BP 134/60
--- NOTE | 2019-08-16 03:49 | NUR ---
HAND-OFF: Report given to BELINDA Choudhary.
[2019-08-16 04:00] VITALS: BP 112/61
[2019-08-16 06:34] LABS: BASOPHILS % (AUTO) 1.4 % (0.0-2.0); EOSINOPHILS % (AUTO) 3.6 % (0.0-3.0); HEMATOCRIT 29.1 % (37.0-47.0); HEMOGLOBIN 9.3 G/DL (12.0-16.0); LYMPHOCYTES % (AUTO) 17.5 % (20.0-45.0); MEAN CORPUSCULAR VOLUME 92 FL (80-99); MONOCYTES % (AUTO) 8.8 % (1.0-10.0); NEUTROPHILS % (AUTO) 68.7 % (45.0-75.0); PLATELET COUNT 120 K/UL (150-450); RED BLOOD COUNT 3.17 M/UL (4.20-5.40); RED CELL DISTRIBUTION WIDTH 17.9 % (11.6-14.8); WHITE BLOOD COUNT 3.6 K/UL (4.8-10.8)
[2019-08-16] MEDS: NovoLOG Insulin Flexpen SUBQ SCH ×4 (06:39→20:40)
[2019-08-16 06:47] LABS: INR 1.2 (0.9-1.1)
[2019-08-16 07:02] LABS: ANION GAP 8 mmol/L (5-15); BLOOD UREA NITROGEN 36 mg/dL (7-18); CALCIUM 8.9 MG/DL (8.5-10.1); CARBON DIOXIDE 25 MMOL/L (21-32); CHLORIDE 112 MMOL/L (98-107); CREATININE 1.3 MG/DL (0.55-1.30); POTASSIUM 4.5 MMOL/L (3.5-5.1); SODIUM 145 MMOL/L (136-145)
--- NOTE | 2019-08-16 07:30 | NUR ---
NURSE NOTES: Received patient A/A/Ox4, namibian speaking, denies pain/discomfort noted. able to identify needs and follow simple commands. eating breakfast in bed. keep calm and comfortable. IV access patent and intact. keep bed in the lowest position. lock and alarm activated for safety, side rails up x3, call light within reach, ambulate with assistance with a cane. will continue to monitor.
--- NOTE | 2019-08-16 07:48 | NUR ---
HAND-OFF: Report given to GRACIELA Marshall.
[2019-08-16 08:00] VITALS: BP 118/64
[2019-08-16] MEDS: HydrALAZINE 10mg Tab ORAL SCH ×2 (08:32→20:37)
[2019-08-16] MEDS: Liothyronine 5mcg tab ORAL SCH (08:33)
[2019-08-16] MEDS: Carvedilol 12.5mg tab ORAL SCH ×2 (08:33→20:37)
[2019-08-16] MEDS: Docusate 100mg cap ORAL SCH ×3 (08:33→17:24)
--- NOTE | 2019-08-16 08:57 | General Progress Note ---
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 Bowel regimen of Colace and MiraLAX Continue PPI Sent for fecal occult blood stool to rule out any GI bleed Outpatient GI procedure fu cardiology recs Subjective ROS Limited/Unobtainable: Yes Allergies: Coded Allergies: No Known Allergies (Unverified , 09/17/16) Objective Last 24 Hour Vital Signs Date Time Temp Pulse Resp B/P (MAP) Pulse Ox O2 Delivery O2 Flow Rate FiO2 08/16/19 08:34 118/64 08/16/19 08:33 75 118/64 08/16/19 08:32 118/64 08/16/19 04:00 97.0 67 20 112/61 (78) 97 08/16/19 00:00 97.0 69 18 134/60 (84) 98 08/15/19 22:34 Room Air 08/15/19 20:21 132/71 08/15/19 20:20 82 132/71 08/15/19 20:00 97.9 75 18 127/60 (82) 98 08/15/19 17:26 132/71 08/15/19 16:00 98.3 82 18 132/71 (91) 97 08/15/19 12:00 98.1 80 18 130/62 (84) 98 08/15/19 09:25 133/58 08/15/19 09:25 133/58 08/15/19 09:24 71 133/58 08/15/19 09:00 Room Air Intake and Output 08/15/19 08/16/19 18:59 06:59 Intake Total 800 ml Balance 800 ml Intake Oral 800 ml # Voids 4 1 # Bowel Movements 1 Laboratory Tests 08/15/19 17:30: Stool Occult Blood [Pending] 08/16/19 05:55: White Blood Count 3.6L, Red Blood Count 3.17L, Hemoglobin 9.3L, Hematocrit 29.1L , Mean Corpuscular Volume 92, Mean Corpuscular Hemoglobin 29.3, Mean Corpuscular Hemoglobin Concent 31.9L, Red Cell Distribution Width 17.9H, Platelet Count 120L, Mean Platelet Volume 6.5, Neutrophils (%) (Auto) 68.7, Lymphocytes (%) (Auto) 17.5L, Monocytes (%) (Auto) 8.8, Eosinophils (%) (Auto) 3.6H, Basophils (%) (Auto) 1.4, Prothrombin Time 12.7H, Prothromb Time International Ratio 1.2H, Sodium Level 145, Potassium Level 4.5, Chloride Level 112H, Carbon Dioxide Level 25, Anion Gap 8, Blood Urea Nitrogen 36H, Creatinine 1.3, Estimat Glomerular Filtration Rate , Glucose Level 120H, Calcium Level 8.9 Height (Feet): 5 Height (Inches): 2.00 Weight (Pounds): 101 General Appearance: alert EENT: normal ENT inspection Neck: supple Cardiovascular: normal rate Respiratory/Chest: decreased breath sounds Abdomen: normal bowel sounds, non tender, soft Extremities: non-tender Charan Pimentel MD Aug 16, 2019 08:57
--- NOTE | 2019-08-16 11:26 | Cardiac Electrophysiology PN ---
Assessment/Plan Assessment/Plan 1. Paroxysmal atrial fibrillation, AV paced on digoxin 0.125 daily and metoprolol 50 b.i.d and Coumadin per Rx 2. Status post Biotronik DDD pacemaker implantation by me in 2017 with Nl fx 3. History of hypertension. Stable 4. 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 Now on Dig, Coreg, Hydralazine and isordil May need pacer upgrade to ICD if EF remains less than 35% 5. Diabetes. 6. CVA in 1990. 7. Status post aortic valve replacement in 1985 and then again in 1995. 8. Abdominal pain due to bleeding peritoneum with moderate organized clot in the cul-de-sac, FU by Dr. Estella GAITAN RN Subjective Subjective Alert NAD. No CP or SOB..DC planning to home with HH in progress Objective Last 24 Hour Vital Signs Date Time Temp Pulse Resp B/P (MAP) Pulse Ox O2 Delivery O2 Flow Rate FiO2 08/16/19 08:34 118/64 08/16/19 08:33 75 118/64 08/16/19 08:32 118/64 08/16/19 08:00 97.3 75 19 118/64 (82) 98 08/16/19 04:00 97.0 67 20 112/61 (78) 97 08/16/19 00:00 97.0 69 18 134/60 (84) 98 08/15/19 22:34 Room Air 08/15/19 20:21 132/71 08/15/19 20:20 82 132/71 08/15/19 20:00 97.9 75 18 127/60 (82) 98 08/15/19 17:26 132/71 08/15/19 16:00 98.3 82 18 132/71 (91) 97 08/15/19 12:00 98.1 80 18 130/62 (84) 98 Intake and Output 08/15/19 08/16/19 19:00 07:00 Intake Total 800 ml Balance 800 ml Intake Oral 800 ml # Voids 4 1 # Bowel Movements 1 Laboratory Tests Test 08/15/19 17:30 08/16/19 05:55 Stool Occult Blood Pending White Blood Count 3.6 K/UL (4.8-10.8) L Red Blood Count 3.17 M/UL (4.20-5.40) L Hemoglobin 9.3 G/DL (12.0-16.0) L Hematocrit 29.1 % (37.0-47.0) L Mean Corpuscular Volume 92 FL (80-99) Mean Corpuscular Hemoglobin 29.3 PG (27.0-31.0) Mean Corpuscular Hemoglobin Concent 31.9 G/DL (32.0-36.0) L Red Cell Distribution Width 17.9 % (11.6-14.8) H Platelet Count 120 K/UL (150-450) L Mean Platelet Volume 6.5 FL (6.5-10.1) Neutrophils (%) (Auto) 68.7 % (45.0-75.0) Lymphocytes (%) (Auto) 17.5 % (20.0-45.0) L Monocytes (%) (Auto) 8.8 % (1.0-10.0) Eosinophils (%) (Auto) 3.6 % (0.0-3.0) H Basophils (%) (Auto) 1.4 % (0.0-2.0) Prothrombin Time 12.7 SEC (9.30-11.50) H Prothromb Time International Ratio 1.2 (0.9-1.1) H Sodium Level 145 MMOL/L (136-145) Potassium Level 4.5 MMOL/L (3.5-5.1) Chloride Level 112 MMOL/L (98-107) H Carbon Dioxide Level 25 MMOL/L (21-32) Anion Gap 8 mmol/L (5-15) Blood Urea Nitrogen 36 mg/dL (7-18) H Creatinine 1.3 MG/DL (0.55-1.30) Estimat Glomerular Filtration Rate mL/min (>60) Glucose Level 120 MG/DL (74-106) H Calcium Level 8.9 MG/DL (8.5-10.1) Objective HEAD AND NECK: No JVD. LUNGS: Clear. CARDIOVASCULAR: Metallic S2 with soft systolic murmur. Sternotomy intact. Pacemaker in the left subclavian. ABDOMEN: Soft. EXTREMITIES: With no pitting edema. Osmany Carmona MD Aug 16, 2019 11:26
--- NOTE | 2019-08-16 11:28 | Nephrology Progress Note ---
Assessment/Plan Problem List: (1) Acute renal failure Assessment: resolved (2) Diabetic nephropathy (3) Diabetes mellitus (4) HTN (hypertension) (5) Pacemaker Assessment Renal failure ? Acute on chronic Pelvic hemoperitoneum. Epigastric pain. Nausea. Hypertension. Diabetes type 2. Atrial fibrillation. Hypercholesterolemia. Cerebrovascular disease. 1990 Plan folic acid- cytomel- Slow Hydrate- Anemia avila- transfused monitor renal parameters 2D echo Pending Kidney [facility] medical Renal disease med surg- DC planning Subjective ROS Limited/Unobtainable: No Constitutional: Reports: malaise, weakness Objective Objective Last 24 Hour Vital Signs Date Time Temp Pulse Resp B/P (MAP) Pulse Ox O2 Delivery O2 Flow Rate FiO2 08/16/19 08:34 118/64 08/16/19 08:33 75 118/64 08/16/19 08:32 118/64 08/16/19 08:00 97.3 75 19 118/64 (82) 98 08/16/19 04:00 97.0 67 20 112/61 (78) 97 08/16/19 00:00 97.0 69 18 134/60 (84) 98 08/15/19 22:34 Room Air 08/15/19 20:21 132/71 08/15/19 20:20 82 132/71 08/15/19 20:00 97.9 75 18 127/60 (82) 98 08/15/19 17:26 132/71 08/15/19 16:00 98.3 82 18 132/71 (91) 97 08/15/19 12:00 98.1 80 18 130/62 (84) 98 Intake and Output 08/15/19 08/16/19 19:00 07:00 Intake Total 800 ml Balance 800 ml Intake Oral 800 ml # Voids 4 1 # Bowel Movements 1 Laboratory Tests 08/15/19 17:30: Stool Occult Blood [Pending] 08/16/19 05:55: White Blood Count 3.6L, Red Blood Count 3.17L, Hemoglobin 9.3L, Hematocrit 29.1L , Mean Corpuscular Volume 92, Mean Corpuscular Hemoglobin 29.3, Mean Corpuscular Hemoglobin Concent 31.9L, Red Cell Distribution Width 17.9H, Platelet Count 120L, Mean Platelet Volume 6.5, Neutrophils (%) (Auto) 68.7, Lymphocytes (%) (Auto) 17.5L, Monocytes (%) (Auto) 8.8, Eosinophils (%) (Auto) 3.6H, Basophils (%) (Auto) 1.4, Prothrombin Time 12.7H, Prothromb Time International Ratio 1.2H, Sodium Level 145, Potassium Level 4.5, Chloride Level 112H, Carbon Dioxide Level 25, Anion Gap 8, Blood Urea Nitrogen 36H, Creatinine 1.3, Estimat Glomerular Filtration Rate , Glucose Level 120H, Calcium Level 8.9 Height (Feet): 5 Height (Inches): 2.00 Weight (Pounds): 101 General Appearance: no apparent distress Objective no change Kirby Rivera MD Aug 16, 2019 11:28
[2019-08-16 11:57] VITALS: BP 128/58
--- NOTE | 2019-08-16 12:09 | Pulmonology Progress Note ---
Assessment/Plan Problems: (1) Intra abdominal hemorrhage (2) Coagulopathy (3) Acute renal failure (4) Atrial fibrillation (5) HTN (hypertension) (6) Abdominal pain (7) Pacemaker (8) Aortic valve replaced (9) Status post mitral valve replacement (10) Cerebral vascular disease (11) Diabetes mellitus (12) Chronic anticoagulation Assessment/Plan no new complains on coumadin daily, f/u INR daily h/h stable, off anticoagulation Blood sugar fairly controlled, symptomatic treatment v-paced, pacemaker will be interrogated check electrolytes symptomatic treatment Subjective ROS Limited/Unobtainable: No Constitutional: Reports: no symptoms HEENT: Repors: no symptoms Respiratory: Reports: no symptoms Allergies: Coded Allergies: No Known Allergies (Unverified , 09/17/16) Objective Last 24 Hour Vital Signs Date Time Temp Pulse Resp B/P (MAP) Pulse Ox O2 Delivery O2 Flow Rate FiO2 08/16/19 11:57 97.4 86 18 128/58 (81) 93 08/16/19 08:34 118/64 08/16/19 08:33 75 118/64 08/16/19 08:32 118/64 08/16/19 08:00 97.3 75 19 118/64 (82) 98 08/16/19 04:00 97.0 67 20 112/61 (78) 97 08/16/19 00:00 97.0 69 18 134/60 (84) 98 08/15/19 22:34 Room Air 08/15/19 20:21 132/71 08/15/19 20:20 82 132/71 08/15/19 20:00 97.9 75 18 127/60 (82) 98 08/15/19 17:26 132/71 08/15/19 16:00 98.3 82 18 132/71 (91) 97 Intake and Output 08/15/19 08/16/19 19:00 07:00 Intake Total 800 ml Balance 800 ml Intake Oral 800 ml # Voids 4 1 # Bowel Movements 1 Objective General Appearance: WD/WN, no apparent distress Lines, tubes and drains: peripheral HEENT: normocephalic, atraumatic Neck: non-tender, normal alignment Respiratory/Chest: chest wall non-tender, lungs clear Breasts: no masses Cardiovascular/Chest: normal peripheral pulses Abdomen: non tender Extremities: normal range of motion Skin Exam: normal pigmentation Laboratory Tests 08/15/19 17:30: Stool Occult Blood [Pending] 08/16/19 05:55: White Blood Count 3.6L, Red Blood Count 3.17L, Hemoglobin 9.3L, Hematocrit 29.1L , Mean Corpuscular Volume 92, Mean Corpuscular Hemoglobin 29.3, Mean Corpuscular Hemoglobin Concent 31.9L, Red Cell Distribution Width 17.9H, Platelet Count 120L, Mean Platelet Volume 6.5, Neutrophils (%) (Auto) 68.7, Lymphocytes (%) (Auto) 17.5L, Monocytes (%) (Auto) 8.8, Eosinophils (%) (Auto) 3.6H, Basophils (%) (Auto) 1.4, Prothrombin Time 12.7H, Prothromb Time International Ratio 1.2H, Sodium Level 145, Potassium Level 4.5, Chloride Level 112H, Carbon Dioxide Level 25, Anion Gap 8, Blood Urea Nitrogen 36H, Creatinine 1.3, Estimat Glomerular Filtration Rate , Glucose Level 120H, Calcium Level 8.9 Current Medications Medications (Trade) Dose Ordered Sig/Grisel Route PRN Reason Start Time Stop Time Status Last Admin Dose Admin Acetaminophen (Tylenol) 650 mg Q4H PRN ORAL fever 08/08/19 17:30 09/07/19 17:29 Allopurinol (Allopurinol) 150 mg DAILY ORAL 08/12/19 09:00 09/11/19 08:59 08/16/19 08:34 Carvedilol (Coreg) 12.5 mg EVERY 12 HOURS ORAL 08/10/19 21:00 09/09/19 20:59 08/16/19 08:33 Dextrose (Dextrose 50%) 25 ml Q30M PRN IV Hypoglycemia 08/08/19 17:30 09/07/19 17:29 Dextrose (Dextrose 50%) 50 ml Q30M PRN IV Hypoglycemia 08/08/19 17:30 09/07/19 17:29 Docusate Sodium (Colace) 100 mg TID ORAL 08/10/19 13:00 09/08/19 17:59 08/15/19 12:11 Enoxaparin Sodium (Lovenox) 50 mg Q24H SUBQ 08/13/19 21:00 09/12/19 20:59 08/15/19 21:58 Folic Acid (Folate) 2 mg DAILY ORAL 08/10/19 10:15 09/09/19 10:14 08/16/19 08:33 Hydralazine HCl (Apresoline) 10 mg Q12HR ORAL 08/11/19 21:00 09/09/19 17:59 08/16/19 08:32 Insulin Aspart (NovoLOG) BEFORE MEALS AND HS SUBQ 08/08/19 21:00 09/07/19 20:59 08/16/19 06:39 Isosorbide Dinitrate (Isordil) 10 mg BID ORAL 08/10/19 18:00 09/09/19 17:59 08/16/19 08:34 Liothyronine Sodium (Cytomel) 5 mcg DAILY ORAL 08/11/19 09:00 09/10/19 08:59 08/16/19 08:33 Nitroglycerin (Ntg) 0.4 mg Q5M X 3 DOSES PRN SL Prn Chest Pain 08/08/19 17:30 09/07/19 17:29 Ondansetron HCl (Zofran) 4 mg Q6H PRN IVP Nausea & Vomiting 08/08/19 17:30 09/07/19 17:29 Pantoprazole (Protonix) 40 mg BID ORAL 08/09/19 18:00 09/08/19 17:59 08/16/19 08:33 Polyethylene Glycol (Miralax) 17 gm HSPRN PRN ORAL Constipation 08/08/19 21:00 09/07/19 20:59 Temazepam (Restoril) 15 mg HSPRN PRN ORAL Insomnia 08/14/19 16:45 08/21/19 16:44 Warfarin Sodium (Coumadin per pharmacy) 1 ea DAILY PRN MISC Per rx protocol 08/13/19 12:00 09/12/19 11:59 Warfarin Sodium (Coumadin) 6 mg ONCE ORAL 08/16/19 17:00 08/16/19 19:00 Remedios Albarran MD Aug 16, 2019 12:09
--- NOTE | 2019-08-16 12:44 | NUR ---
CASE MANAGEMENT: REVIEW 08/16/19 SI: HTN /INTRA ABD HEMORRHAGE / AFIB WITH RVR 97.4 86 18 128/58 93% ON RA BG 142 WBC 3.6 H/H 9.3/29.1 BUN 36 PT/INR 12.7/ 1.2 IS: PROTONIX BID ISORDIL PO BID COREG PO BID NOVOLOG SQ AC&HS HYDRALAZINE PO BID FOLATE PO QD LOVENOX SQ Q24HR \: 4E MED SURG DCP: HOME WHEN MEDICALLY CLEARED PLAN: MAY NEED NEW ICD IF EF 35% DC PLANNING HOME WITH HH
[2019-08-16 16:00] VITALS: BP 120/74
[2019-08-16] MEDS ORDERED: Warfarin Sodium 3mg ORAL SCH (17:00)
--- NOTE | 2019-08-16 17:09 | Internal Med Progress Note ---
Subjective Date of Service: Aug 16, 2019 Physician Name Sher Hansen Attending Physician Kobi Real MD Current Medications Medications (Trade) Dose Ordered Sig/Grisel Route PRN Reason Start Time Stop Time Status Last Admin Dose Admin Acetaminophen (Tylenol) 650 mg Q4H PRN ORAL fever 08/08/19 17:30 09/07/19 17:29 Allopurinol (Allopurinol) 150 mg DAILY ORAL 08/12/19 09:00 09/11/19 08:59 08/16/19 08:34 Carvedilol (Coreg) 12.5 mg EVERY 12 HOURS ORAL 08/10/19 21:00 09/09/19 20:59 08/16/19 08:33 Dextrose (Dextrose 50%) 25 ml Q30M PRN IV Hypoglycemia 08/08/19 17:30 09/07/19 17:29 Dextrose (Dextrose 50%) 50 ml Q30M PRN IV Hypoglycemia 08/08/19 17:30 09/07/19 17:29 Docusate Sodium (Colace) 100 mg TID ORAL 08/10/19 13:00 09/08/19 17:59 08/16/19 12:18 Enoxaparin Sodium (Lovenox) 50 mg Q24H SUBQ 08/13/19 21:00 09/12/19 20:59 08/15/19 21:58 Folic Acid (Folate) 2 mg DAILY ORAL 08/10/19 10:15 09/09/19 10:14 08/16/19 08:33 Hydralazine HCl (Apresoline) 10 mg Q12HR ORAL 08/11/19 21:00 09/09/19 17:59 08/16/19 08:32 Insulin Aspart (NovoLOG) BEFORE MEALS AND HS SUBQ 08/08/19 21:00 09/07/19 20:59 08/16/19 12:19 Isosorbide Dinitrate (Isordil) 10 mg BID ORAL 08/10/19 18:00 09/09/19 17:59 08/16/19 08:34 Liothyronine Sodium (Cytomel) 5 mcg DAILY ORAL 08/11/19 09:00 09/10/19 08:59 08/16/19 08:33 Nitroglycerin (Ntg) 0.4 mg Q5M X 3 DOSES PRN SL Prn Chest Pain 08/08/19 17:30 09/07/19 17:29 Ondansetron HCl (Zofran) 4 mg Q6H PRN IVP Nausea & Vomiting 08/08/19 17:30 09/07/19 17:29 Pantoprazole (Protonix) 40 mg BID ORAL 08/09/19 18:00 09/08/19 17:59 08/16/19 08:33 Polyethylene Glycol (Miralax) 17 gm HSPRN PRN ORAL Constipation 08/08/19 21:00 09/07/19 20:59 Temazepam (Restoril) 15 mg HSPRN PRN ORAL Insomnia 08/14/19 16:45 08/21/19 16:44 Warfarin Sodium (Coumadin per pharmacy) 1 ea DAILY PRN MISC Per rx protocol 08/13/19 12:00 09/12/19 11:59 Warfarin Sodium (Coumadin) 6 mg ONCE ORAL 08/16/19 17:00 08/16/19 19:00 Allergies: Coded Allergies: No Known Allergies (Unverified , 09/17/16) ROS Limited/Unobtainable: No Constitutional: Reports: no symptoms HEENT: Reports: no symptoms Cardiovascular: Reports: no symptoms Respiratory: Reports: no symptoms Gastrointestinal/Abdominal: Reports: no symptoms Genitourinary: Reports: no symptoms Neurologic/Psychiatric: Reports: no symptoms Subjective 73 YO F admitted with abdominal pain. Now pelvic hemoperitoneum and CHF. Cover for Int Sunny-Dr Real Objective Last Vital Signs Date Time Temp Pulse Resp B/P (MAP) Pulse Ox O2 Delivery O2 Flow Rate FiO2 08/16/19 16:00 98.0 72 18 120/74 (89) 99 08/16/19 09:00 Room Air 08/09/19 09:00 Laboratory Tests Test 08/15/19 17:30 08/16/19 05:55 Stool Occult Blood Negative (NEGATIVE) White Blood Count 3.6 K/UL (4.8-10.8) L Red Blood Count 3.17 M/UL (4.20-5.40) L Hemoglobin 9.3 G/DL (12.0-16.0) L Hematocrit 29.1 % (37.0-47.0) L Mean Corpuscular Volume 92 FL (80-99) Mean Corpuscular Hemoglobin 29.3 PG (27.0-31.0) Mean Corpuscular Hemoglobin Concent 31.9 G/DL (32.0-36.0) L Red Cell Distribution Width 17.9 % (11.6-14.8) H Platelet Count 120 K/UL (150-450) L Mean Platelet Volume 6.5 FL (6.5-10.1) Neutrophils (%) (Auto) 68.7 % (45.0-75.0) Lymphocytes (%) (Auto) 17.5 % (20.0-45.0) L Monocytes (%) (Auto) 8.8 % (1.0-10.0) Eosinophils (%) (Auto) 3.6 % (0.0-3.0) H Basophils (%) (Auto) 1.4 % (0.0-2.0) Prothrombin Time 12.7 SEC (9.30-11.50) H Prothromb Time International Ratio 1.2 (0.9-1.1) H Sodium Level 145 MMOL/L (136-145) Potassium Level 4.5 MMOL/L (3.5-5.1) Chloride Level 112 MMOL/L (98-107) H Carbon Dioxide Level 25 MMOL/L (21-32) Anion Gap 8 mmol/L (5-15) Blood Urea Nitrogen 36 mg/dL (7-18) H Creatinine 1.3 MG/DL (0.55-1.30) Estimat Glomerular Filtration Rate mL/min (>60) Glucose Level 120 MG/DL (74-106) H Calcium Level 8.9 MG/DL (8.5-10.1) Intake and Output 08/15/19 08/16/19 19:00 07:00 Intake Total 800 ml Balance 800 ml Intake Oral 800 ml # Voids 4 1 # Bowel Movements 1 Objective General Appearance: WD/WN, no apparent distress, alert EENT: PERRL/EOMI, normal ENT inspection Neck: non-tender, normal alignment, supple, normal inspection Cardiovascular: normal peripheral pulses, normal rate, regular rhythm, no gallop/murmur, no JVD Respiratory/Chest: chest wall non-tender, lungs clear, normal breath sounds, no respiratory distress, no accessory muscle use Abdomen: normal bowel sounds, decreased bowel sounds, guarding, tender Extremities: normal range of motion, non-tender Neurologic: brain picker II-XII 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, no motor/sensory deficits Skin: normal pigmentation, warm/dry Assessment/Plan Problem List: (1) Type II diabetes mellitus Assessment & Plan: continue novolog sliding scale. (2) Hemoperitoneum, nontraumatic Assessment & Plan: Due to coagulopathy due to coumadin. Hold coumadin. Follow hemoglobin. Non surgical-see surgery note=Dr Soria. (3) Epigastric pain (4) Nausea Assessment & Plan: tolerating clear liquid diet-see GI note=Dr Pimentel (5) HTN (hypertension) (6) Atrial fibrillation Assessment & Plan: Hold digoxin due to toxicity per cardiology (7) Coagulopathy Assessment & Plan: Lovenox subcut until coumadin therapeutic (8) Cerebral vascular disease (9) Pacemaker Assessment & Plan: EP Cardiology=Dr Carmona. Await pacemaker interrogation (10) Status post mitral valve replacement (11) Renal failure Assessment & Plan: Followed by nephrology =Dr Rivera (12) CHF (congestive heart failure) Assessment & Plan: BNP>2000. LVEF=30-35%. Cardiology consult=Dr Carmona Assessment/Plan Discharge planning: home health Sher Hansen MD Aug 16, 2019 17:09
--- NOTE | 2019-08-16 19:04 | NUR ---
HAND-OFF: Report given to Hafsa.
--- NOTE | 2019-08-16 19:05 | NUR ---
NURSE NOTES: Received a report from GRACIELA Marshall. AOX4. Able to make needs known. On room air. No c/o pain/discomfort. IV site is patent and intact. Bed in lowest position. Bed alarm is on. Call light within reach. Will continue to monitor.
[2019-08-16 20:00] VITALS: BP 116/59
[2019-08-16] MEDS: Enoxaparin Sodium 300mg/3ml vial SUBQ SCH (20:33)
--- NOTE | 2019-08-16 20:33 | Surgery Progress Note ---
Surgery Progress Note Subjective Symptoms: improved, pain absent, tolerating diet, passing flatus, BM Objective Last 24 Hour Vital Signs Date Time Temp Pulse Resp B/P (MAP) Pulse Ox O2 Delivery O2 Flow Rate FiO2 08/16/19 20:00 97.5 74 18 116/59 (78) 96 08/16/19 17:24 120/74 08/16/19 16:00 98.0 72 18 120/74 (89) 99 08/16/19 11:57 97.4 86 18 128/58 (81) 93 08/16/19 09:00 Room Air 08/16/19 08:34 118/64 08/16/19 08:33 75 118/64 08/16/19 08:32 118/64 08/16/19 08:00 97.3 75 19 118/64 (82) 98 08/16/19 04:00 97.0 67 20 112/61 (78) 97 08/16/19 00:00 97.0 69 18 134/60 (84) 98 08/15/19 22:34 Room Air I&O Intake and Output 08/15/19 08/16/19 18:59 06:59 Intake Total 800 ml Balance 800 ml Intake Oral 800 ml # Voids 4 1 # Bowel Movements 1 Cardiovascular: RSR Respiratory: clear Abdomen: soft, distended, non-tender, present bowel sounds Extremities: no edema, no tenderness, no cyanosis Laboratory Tests Test 08/16/19 05:55 White Blood Count 3.6 K/UL (4.8-10.8) L Red Blood Count 3.17 M/UL (4.20-5.40) L Hemoglobin 9.3 G/DL (12.0-16.0) L Hematocrit 29.1 % (37.0-47.0) L Mean Corpuscular Volume 92 FL (80-99) Mean Corpuscular Hemoglobin 29.3 PG (27.0-31.0) Mean Corpuscular Hemoglobin Concent 31.9 G/DL (32.0-36.0) L Red Cell Distribution Width 17.9 % (11.6-14.8) H Platelet Count 120 K/UL (150-450) L Mean Platelet Volume 6.5 FL (6.5-10.1) Neutrophils (%) (Auto) 68.7 % (45.0-75.0) Lymphocytes (%) (Auto) 17.5 % (20.0-45.0) L Monocytes (%) (Auto) 8.8 % (1.0-10.0) Eosinophils (%) (Auto) 3.6 % (0.0-3.0) H Basophils (%) (Auto) 1.4 % (0.0-2.0) Prothrombin Time 12.7 SEC (9.30-11.50) H Prothromb Time International Ratio 1.2 (0.9-1.1) H Sodium Level 145 MMOL/L (136-145) Potassium Level 4.5 MMOL/L (3.5-5.1) Chloride Level 112 MMOL/L (98-107) H Carbon Dioxide Level 25 MMOL/L (21-32) Anion Gap 8 mmol/L (5-15) Blood Urea Nitrogen 36 mg/dL (7-18) H Creatinine 1.3 MG/DL (0.55-1.30) Estimat Glomerular Filtration Rate mL/min (>60) Glucose Level 120 MG/DL (74-106) H Calcium Level 8.9 MG/DL (8.5-10.1) Plan Problems: (1) Abdominal pain Assessment & Plan: 73-year-old female with abdominal pain likely due to intra- abdominal hemorrhage from coagulopathy. No trauma. H&H stable. Exam with mild tenderness but no peritonitis. No acute surgical invention recommend at this time Trend H&H We will follow with serial abdominal exams Reverse coagulopathy-appropriate now Vitamin K and FFP as needed Okay to start clear liquids Cardiology consultation Nephrology consultation worsening renal insufficiency IV fluids Advance diet Bowel regimen resume anticoag lovenox transition to coumadin d/c planning patient wants to go home We will follow with recommendations Thank you for let me participate in patient's care (2) Intra abdominal hemorrhage Assessment & Plan: There is a severe cardiomegaly with biatrial chamber enlargement. 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 Pacemaker is present. There is a hiatal hernia. The lung bases are clear. The IVC and hepatic veins are markedly enlarged. There are generalized reticular densities throughout the mesentery and omentum nonspecific. There is some free fluid within the pelvis especially in the area of the cul-de-sac posterior to the uterus. The fluid has a areas of increased density, suspicious for blood. The nature of the hemoperitoneum is not known and the clinical correlation is needed. There are no signs of trauma or any history of such. There is a hypodensity within the left hemipelvis measuring about 1.7 cm which could be an ovarian cyst. Consider rupture of an ovarian cyst or mass is certainly possible. There may be 1 cm focus of fat (image #[id number]/series [id number]) in association with the left ovary and adjacent to the cystic focus suggesting the possibility of an ovarian dermoid. There is a calcified fibroid within the uterus measuring 1.6 cm. IMPRESSION: Pelvic hemoperitoneum with moderate organized clot in the cul-de-sac. Nature of this is not known but consider possibility of a ruptured ovarian cyst and/or mass. Question of an ovarian dermoid on the left side. Differential includes trauma, iatrogenic causes from recent surgery/procedures, coagulopathies, antiocoagulation Rx or other causes of hemoperitoneum. Calcified uterine fibroid. Severe cardiomyopathy with biatrial chamber enlargement. Distended IVC and hepatic veins probably on the basis of tricuspid regurgitation or right heart failure. Atherosclerotic vascular disease. Pacemaker. Hiatal hernia. Mesenteric nodularity and reticulation may be on the basis of ascites/ hemoperitoneum described earlier. Iain Soria Aug 16, 2019 20:33
[2019-08-17] VITALS: BP 117/55
[2019-08-17 04:00] VITALS: BP 120/64
[2019-08-17] MEDS: NovoLOG Insulin Flexpen SUBQ SCH ×4 (06:02→20:39)
[2019-08-17 06:11] LABS: EOSINOPHILS % (AUTO) 2.7 % (0.0-3.0); HEMATOCRIT 28.1 % (37.0-47.0); HEMOGLOBIN 9.7 G/DL (12.0-16.0); LYMPHOCYTES % (AUTO) 14.7 % (20.0-45.0); MEAN CORPUSCULAR VOLUME 87 FL (80-99); MONOCYTES % (AUTO) 8.4 % (1.0-10.0); NEUTROPHILS % (AUTO) 73.2 % (45.0-75.0); PLATELET COUNT 118 K/UL (150-450); RED BLOOD COUNT 3.22 M/UL (4.20-5.40); WHITE BLOOD COUNT 3.8 K/UL (4.8-10.8)
[2019-08-17 06:27] LABS: ANION GAP 9 mmol/L (5-15); BLOOD UREA NITROGEN 41 mg/dL (7-18); CARBON DIOXIDE 23 MMOL/L (21-32); CHLORIDE 112 MMOL/L (98-107); CREATININE 1.4 MG/DL (0.55-1.30); POTASSIUM 4.5 MMOL/L (3.5-5.1); SODIUM 144 MMOL/L (136-145)
[2019-08-17 06:35] LABS: INR 1.6 (0.9-1.1)
--- NOTE | 2019-08-17 07:00 | NUR ---
HAND-OFF: Report given to BELINDA Brink.
--- NOTE | 2019-08-17 07:24 | NUR ---
NURSE NOTES: Patient awake, alert x4, [place] speaking; on room air, no sing of distress and shortness of breath; no sing of chest pain; IV Left-Hand 20G flushes well; side rails up x2, breaks engaged, bed at lowest position; call light within reach; will check blood sugar as scheduled;
[2019-08-17 08:26] VITALS: BP 120/64
[2019-08-17] MEDS: Docusate 100mg cap ORAL SCH ×3 (08:30→17:20)
[2019-08-17] MEDS: Liothyronine 5mcg tab ORAL SCH (08:30)
[2019-08-17] MEDS: HydrALAZINE 10mg Tab ORAL SCH ×2 (08:31→20:40)
[2019-08-17] MEDS: Carvedilol 12.5mg tab ORAL SCH ×2 (08:31→20:41)
--- NOTE | 2019-08-17 10:22 | General Progress Note ---
Assessment/Plan Status: progressing Assessment/Plan: (1) Anemia ICD Codes: D64.9 - Anemia, unspecified SNOMED: 825799212 (2) Iron deficiency ICD Codes: E61.1 - Iron deficiency SNOMED: 09758270 (3) Hemoperitoneum, nontraumatic ICD Codes: K66.1 - Hemoperitoneum SNOMED: 14071838 (4) Epigastric pain ICD Codes: R10.13 - Epigastric pain SNOMED: 41106752 (5) Abdominal pain (6) A.Fib (7) CHF Assessment/Plan No plans for any GI procedures at this time Follow-up surgical recommendations >> no noted surgical intervention at this time Follow-up cardiology recommendations 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, binder lockstitch KUB negative Bowel regimen of Colace and MiraLAX Continue PPI Sent for fecal occult blood stool to rule out any GI bleed Outpatient GI procedure fu cardiology recs Subjective ROS Limited/Unobtainable: No Allergies: Coded Allergies: No Known Allergies (Unverified , 09/17/16) Objective Last 24 Hour Vital Signs Date Time Temp Pulse Resp B/P (MAP) Pulse Ox O2 Delivery O2 Flow Rate FiO2 08/17/19 09:00 Room Air 08/17/19 08:31 120/64 08/17/19 08:31 92 120/64 08/17/19 08:31 120/64 08/17/19 08:26 97.6 92 20 120/64 (82) 96 08/17/19 04:00 97.6 92 20 120/64 (82) 96 08/17/19 00:00 98.8 83 16 117/55 (75) 96 08/16/19 21:00 Room Air 08/16/19 20:37 116/59 08/16/19 20:37 74 116/59 08/16/19 20:00 97.5 74 18 116/59 (78) 96 08/16/19 17:24 120/74 08/16/19 16:00 98.0 72 18 120/74 (89) 99 08/16/19 11:57 97.4 86 18 128/58 (81) 93 Intake and Output 08/16/19 08/17/19 18:59 06:59 Intake Total 900 ml Balance 900 ml Intake Oral 900 ml # Voids 4 4 # Bowel Movements 1 1 Laboratory Tests 08/17/19 05:45: White Blood Count 3.8L, Red Blood Count 3.22L, Hemoglobin 9.7L, Hematocrit 28.1L , Mean Corpuscular Volume 87, Mean Corpuscular Hemoglobin 30.0, Mean Corpuscular Hemoglobin Concent 34.3, Red Cell Distribution Width 16.0H, Platelet Count 118L, Mean Platelet Volume 5.9L, Neutrophils (%) (Auto) 73.2, Lymphocytes (%) (Auto) 14.7L, Monocytes (%) (Auto) 8.4, Eosinophils (%) (Auto) 2.7, Basophils (%) (Auto) 1.0, Prothrombin Time 16.6H, Prothromb Time International Ratio 1.6H, Sodium Level 144, Potassium Level 4.5, Chloride Level 112H, Carbon Dioxide Level 23, Anion Gap 9, Blood Urea Nitrogen 41H, Creatinine 1.4H, Estimat Glomerular Filtration Rate , Glucose Level 132H, Calcium Level 9.0 Height (Feet): 5 Height (Inches): 2.00 Weight (Pounds): 93 General Appearance: no apparent distress EENT: normal ENT inspection Neck: supple Cardiovascular: normal rate Respiratory/Chest: decreased breath sounds Abdomen: normal bowel sounds, non tender, soft Extremities: non-tender Charan Pimentel MD Aug 17, 2019 10:21
[2019-08-17 12:00] VITALS: BP 116/60
--- NOTE | 2019-08-17 12:03 | Nephrology Progress Note ---
Assessment/Plan Problem List: (1) Acute renal failure Assessment: resolved (2) Diabetic nephropathy (3) Diabetes mellitus (4) HTN (hypertension) (5) Pacemaker Assessment Renal failure ? Acute on chronic Pelvic hemoperitoneum. Epigastric pain. Nausea. Hypertension. Diabetes type 2. Atrial fibrillation. Hypercholesterolemia. Cerebrovascular disease. 1990 Plan folic acid- cytomel- Slow Hydrate- Anemia avila- transfused monitor renal parameters 2D echo Pending Kidney [facility] medical Renal disease med surg- DC planning Subjective ROS Limited/Unobtainable: No Constitutional: Reports: malaise Objective Objective Last 24 Hour Vital Signs Date Time Temp Pulse Resp B/P (MAP) Pulse Ox O2 Delivery O2 Flow Rate FiO2 08/17/19 09:00 Room Air 08/17/19 08:31 120/64 08/17/19 08:31 92 120/64 08/17/19 08:31 120/64 08/17/19 08:26 97.6 92 20 120/64 (82) 96 08/17/19 04:00 97.6 92 20 120/64 (82) 96 08/17/19 00:00 98.8 83 16 117/55 (75) 96 08/16/19 21:00 Room Air 08/16/19 20:37 116/59 08/16/19 20:37 74 116/59 08/16/19 20:00 97.5 74 18 116/59 (78) 96 08/16/19 17:24 120/74 08/16/19 16:00 98.0 72 18 120/74 (89) 99 Intake and Output 08/16/19 08/17/19 18:59 06:59 Intake Total 900 ml Balance 900 ml Intake Oral 900 ml # Voids 4 4 # Bowel Movements 1 1 Laboratory Tests 08/17/19 05:45: White Blood Count 3.8L, Red Blood Count 3.22L, Hemoglobin 9.7L, Hematocrit 28.1L , Mean Corpuscular Volume 87, Mean Corpuscular Hemoglobin 30.0, Mean Corpuscular Hemoglobin Concent 34.3, Red Cell Distribution Width 16.0H, Platelet Count 118L, Mean Platelet Volume 5.9L, Neutrophils (%) (Auto) 73.2, Lymphocytes (%) (Auto) 14.7L, Monocytes (%) (Auto) 8.4, Eosinophils (%) (Auto) 2.7, Basophils (%) (Auto) 1.0, Prothrombin Time 16.6H, Prothromb Time International Ratio 1.6H, Sodium Level 144, Potassium Level 4.5, Chloride Level 112H, Carbon Dioxide Level 23, Anion Gap 9, Blood Urea Nitrogen 41H, Creatinine 1.4H, Estimat Glomerular Filtration Rate , Glucose Level 132H, Calcium Level 9.0 Height (Feet): 5 Height (Inches): 2.00 Weight (Pounds): 93 General Appearance: no apparent distress Objective no change Kirby Rivera MD Aug 17, 2019 12:03
--- NOTE | 2019-08-17 12:18 | Internal Med Progress Note ---
Subjective Date of Service: Aug 17, 2019 Physician Name Sher Hansen Attending Physician Kobi Real MD Current Medications Medications (Trade) Dose Ordered Sig/Grisel Route PRN Reason Start Time Stop Time Status Last Admin Dose Admin Acetaminophen (Tylenol) 650 mg Q4H PRN ORAL fever 08/08/19 17:30 09/07/19 17:29 Allopurinol (Allopurinol) 150 mg DAILY ORAL 08/12/19 09:00 09/11/19 08:59 08/17/19 08:31 Carvedilol (Coreg) 12.5 mg EVERY 12 HOURS ORAL 08/10/19 21:00 09/09/19 20:59 08/17/19 08:31 Dextrose (Dextrose 50%) 25 ml Q30M PRN IV Hypoglycemia 08/08/19 17:30 09/07/19 17:29 Dextrose (Dextrose 50%) 50 ml Q30M PRN IV Hypoglycemia 08/08/19 17:30 09/07/19 17:29 Docusate Sodium (Colace) 100 mg TID ORAL 08/10/19 13:00 09/08/19 17:59 08/17/19 11:57 Enoxaparin Sodium (Lovenox) 40 mg Q24H SUBQ 08/17/19 21:00 09/16/19 20:59 Folic Acid (Folate) 2 mg DAILY ORAL 08/10/19 10:15 09/09/19 10:14 08/17/19 08:31 Hydralazine HCl (Apresoline) 10 mg Q12HR ORAL 08/11/19 21:00 09/09/19 17:59 08/17/19 08:31 Insulin Aspart (NovoLOG) BEFORE MEALS AND HS SUBQ 08/08/19 21:00 09/07/19 20:59 08/17/19 11:57 Isosorbide Dinitrate (Isordil) 10 mg BID ORAL 08/10/19 18:00 09/09/19 17:59 08/17/19 08:31 Liothyronine Sodium (Cytomel) 5 mcg DAILY ORAL 08/11/19 09:00 09/10/19 08:59 08/17/19 08:30 Nitroglycerin (Ntg) 0.4 mg Q5M X 3 DOSES PRN SL Prn Chest Pain 08/08/19 17:30 09/07/19 17:29 Ondansetron HCl (Zofran) 4 mg Q6H PRN IVP Nausea & Vomiting 08/08/19 17:30 09/07/19 17:29 Pantoprazole (Protonix) 40 mg BID ORAL 08/09/19 18:00 09/08/19 17:59 08/17/19 08:31 Polyethylene Glycol (Miralax) 17 gm HSPRN PRN ORAL Constipation 08/08/19 21:00 09/07/19 20:59 Temazepam (Restoril) 15 mg HSPRN PRN ORAL Insomnia 08/14/19 16:45 08/21/19 16:44 Warfarin Sodium (Coumadin per pharmacy) 1 ea DAILY PRN MISC Per rx protocol 08/13/19 12:00 09/12/19 11:59 Warfarin Sodium (Coumadin) 5 mg ONCE ORAL 08/17/19 17:00 08/17/19 19:00 Allergies: Coded Allergies: No Known Allergies (Unverified , 09/17/16) ROS Limited/Unobtainable: No Constitutional: Reports: no symptoms HEENT: Reports: no symptoms Cardiovascular: Reports: no symptoms Respiratory: Reports: no symptoms Gastrointestinal/Abdominal: Reports: no symptoms Genitourinary: Reports: no symptoms Neurologic/Psychiatric: Reports: no symptoms Subjective 73 YO F admitted with abdominal pain. Now pelvic hemoperitoneum and CHF. Cover for Int Sunny-Dr Real Objective Last Vital Signs Date Time Temp Pulse Resp B/P (MAP) Pulse Ox O2 Delivery O2 Flow Rate FiO2 08/17/19 09:00 Room Air 08/17/19 08:31 120/64 08/17/19 08:31 92 08/17/19 08:26 97.6 20 96 08/09/19 09:00 Laboratory Tests Test 08/17/19 05:45 White Blood Count 3.8 K/UL (4.8-10.8) L Red Blood Count 3.22 M/UL (4.20-5.40) L Hemoglobin 9.7 G/DL (12.0-16.0) L Hematocrit 28.1 % (37.0-47.0) L Mean Corpuscular Volume 87 FL (80-99) Mean Corpuscular Hemoglobin 30.0 PG (27.0-31.0) Mean Corpuscular Hemoglobin Concent 34.3 G/DL (32.0-36.0) Red Cell Distribution Width 16.0 % (11.6-14.8) H Platelet Count 118 K/UL (150-450) L Mean Platelet Volume 5.9 FL (6.5-10.1) L Neutrophils (%) (Auto) 73.2 % (45.0-75.0) Lymphocytes (%) (Auto) 14.7 % (20.0-45.0) L Monocytes (%) (Auto) 8.4 % (1.0-10.0) Eosinophils (%) (Auto) 2.7 % (0.0-3.0) Basophils (%) (Auto) 1.0 % (0.0-2.0) Prothrombin Time 16.6 SEC (9.30-11.50) H Prothromb Time International Ratio 1.6 (0.9-1.1) H Sodium Level 144 MMOL/L (136-145) Potassium Level 4.5 MMOL/L (3.5-5.1) Chloride Level 112 MMOL/L (98-107) H Carbon Dioxide Level 23 MMOL/L (21-32) Anion Gap 9 mmol/L (5-15) Blood Urea Nitrogen 41 mg/dL (7-18) H Creatinine 1.4 MG/DL (0.55-1.30) H Estimat Glomerular Filtration Rate mL/min (>60) Glucose Level 132 MG/DL (74-106) H Calcium Level 9.0 MG/DL (8.5-10.1) Intake and Output 08/16/19 08/17/19 18:59 06:59 Intake Total 900 ml Balance 900 ml Intake Oral 900 ml # Voids 4 4 # Bowel Movements 1 1 Objective General Appearance: WD/WN, no apparent distress, alert EENT: PERRL/EOMI, normal ENT inspection Neck: non-tender, normal alignment, supple, normal inspection Cardiovascular: normal peripheral pulses, normal rate, regular rhythm, no gallop/murmur, no JVD Respiratory/Chest: chest wall non-tender, lungs clear, normal breath sounds, no respiratory distress, no accessory muscle use Abdomen: normal bowel sounds, decreased bowel sounds, guarding, tender Extremities: normal range of motion, non-tender 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 (2) Hemoperitoneum, nontraumatic Assessment & Plan: Due to coagulopathy due to coumadin. Hold coumadin. Follow hemoglobin. Non surgical-see surgery note=Dr Soria. (3) Epigastric pain (4) Nausea Assessment & Plan: tolerating clear liquid diet-see GI note=Dr Pimentel (5) HTN (hypertension) (6) Atrial fibrillation Assessment & Plan: Hold digoxin due to toxicity per cardiology (7) Coagulopathy Assessment & Plan: Lovenox subcut until coumadin therapeutic (8) Cerebral vascular disease (9) Pacemaker Assessment & Plan: EP Cardiology=Dr Carmona. Await pacemaker interrogation (10) Status post mitral valve replacement (11) Renal failure Assessment & Plan: Followed by nephrology =Dr Rivera (12) CHF (congestive heart failure) Assessment & Plan: BNP>2000. LVEF=30-35%. Cardiology consult=Dr Carmona Assessment/Plan Discharge planning: home health Sher Hansen MD Aug 17, 2019 12:18
--- NOTE | 2019-08-17 12:20 | Pulmonology Progress Note ---
Assessment/Plan Problems: (1) Intra abdominal hemorrhage (2) Coagulopathy (3) Acute renal failure (4) Atrial fibrillation (5) HTN (hypertension) (6) Abdominal pain (7) Pacemaker (8) Aortic valve replaced (9) Status post mitral valve replacement (10) Cerebral vascular disease (11) Diabetes mellitus (12) Chronic anticoagulation Assessment/Plan doing better no new complains on coumadin daily, f/u INR daily h/h stable, off anticoagulation Blood sugar fairly controlled, symptomatic treatment v-paced, pacemaker will be interrogated check electrolytes symptomatic treatment Subjective ROS Limited/Unobtainable: No Constitutional: Reports: no symptoms HEENT: Repors: no symptoms Respiratory: Reports: no symptoms Allergies: Coded Allergies: No Known Allergies (Unverified , 09/17/16) Objective Last 24 Hour Vital Signs Date Time Temp Pulse Resp B/P (MAP) Pulse Ox O2 Delivery O2 Flow Rate FiO2 08/17/19 09:00 Room Air 08/17/19 08:31 120/64 08/17/19 08:31 92 120/64 08/17/19 08:31 120/64 08/17/19 08:26 97.6 92 20 120/64 (82) 96 08/17/19 04:00 97.6 92 20 120/64 (82) 96 08/17/19 00:00 98.8 83 16 117/55 (75) 96 08/16/19 21:00 Room Air 08/16/19 20:37 116/59 08/16/19 20:37 74 116/59 08/16/19 20:00 97.5 74 18 116/59 (78) 96 08/16/19 17:24 120/74 08/16/19 16:00 98.0 72 18 120/74 (89) 99 Intake and Output 08/16/19 08/17/19 18:59 06:59 Intake Total 900 ml Balance 900 ml Intake Oral 900 ml # Voids 4 4 # Bowel Movements 1 1 Objective General Appearance: WD/WN, no apparent distress Lines, tubes and drains: peripheral HEENT: normocephalic, atraumatic Neck: non-tender, normal alignment Respiratory/Chest: chest wall non-tender, lungs clear Breasts: no masses Cardiovascular/Chest: normal peripheral pulses Abdomen: non tender Extremities: normal range of motion Skin Exam: normal pigmentation Laboratory Tests 08/17/19 05:45: White Blood Count 3.8L, Red Blood Count 3.22L, Hemoglobin 9.7L, Hematocrit 28.1L , Mean Corpuscular Volume 87, Mean Corpuscular Hemoglobin 30.0, Mean Corpuscular Hemoglobin Concent 34.3, Red Cell Distribution Width 16.0H, Platelet Count 118L, Mean Platelet Volume 5.9L, Neutrophils (%) (Auto) 73.2, Lymphocytes (%) (Auto) 14.7L, Monocytes (%) (Auto) 8.4, Eosinophils (%) (Auto) 2.7, Basophils (%) (Auto) 1.0, Prothrombin Time 16.6H, Prothromb Time International Ratio 1.6H, Sodium Level 144, Potassium Level 4.5, Chloride Level 112H, Carbon Dioxide Level 23, Anion Gap 9, Blood Urea Nitrogen 41H, Creatinine 1.4H, Estimat Glomerular Filtration Rate , Glucose Level 132H, Calcium Level 9.0 Current Medications Medications (Trade) Dose Ordered Sig/Grisel Route PRN Reason Start Time Stop Time Status Last Admin Dose Admin Acetaminophen (Tylenol) 650 mg Q4H PRN ORAL fever 08/08/19 17:30 09/07/19 17:29 Allopurinol (Allopurinol) 150 mg DAILY ORAL 08/12/19 09:00 09/11/19 08:59 08/17/19 08:31 Carvedilol (Coreg) 12.5 mg EVERY 12 HOURS ORAL 08/10/19 21:00 09/09/19 20:59 08/17/19 08:31 Dextrose (Dextrose 50%) 25 ml Q30M PRN IV Hypoglycemia 08/08/19 17:30 09/07/19 17:29 Dextrose (Dextrose 50%) 50 ml Q30M PRN IV Hypoglycemia 08/08/19 17:30 09/07/19 17:29 Docusate Sodium (Colace) 100 mg TID ORAL 08/10/19 13:00 09/08/19 17:59 08/17/19 11:57 Enoxaparin Sodium (Lovenox) 40 mg Q24H SUBQ 08/17/19 21:00 09/16/19 20:59 Folic Acid (Folate) 2 mg DAILY ORAL 08/10/19 10:15 09/09/19 10:14 08/17/19 08:31 Hydralazine HCl (Apresoline) 10 mg Q12HR ORAL 08/11/19 21:00 09/09/19 17:59 08/17/19 08:31 Insulin Aspart (NovoLOG) BEFORE MEALS AND HS SUBQ 08/08/19 21:00 09/07/19 20:59 08/17/19 11:57 Isosorbide Dinitrate (Isordil) 10 mg BID ORAL 08/10/19 18:00 09/09/19 17:59 08/17/19 08:31 Liothyronine Sodium (Cytomel) 5 mcg DAILY ORAL 08/11/19 09:00 09/10/19 08:59 08/17/19 08:30 Nitroglycerin (Ntg) 0.4 mg Q5M X 3 DOSES PRN SL Prn Chest Pain 08/08/19 17:30 09/07/19 17:29 Ondansetron HCl (Zofran) 4 mg Q6H PRN IVP Nausea & Vomiting 08/08/19 17:30 09/07/19 17:29 Pantoprazole (Protonix) 40 mg BID ORAL 08/09/19 18:00 09/08/19 17:59 08/17/19 08:31 Polyethylene Glycol (Miralax) 17 gm HSPRN PRN ORAL Constipation 08/08/19 21:00 09/07/19 20:59 Temazepam (Restoril) 15 mg HSPRN PRN ORAL Insomnia 08/14/19 16:45 08/21/19 16:44 Warfarin Sodium (Coumadin per pharmacy) 1 ea DAILY PRN MISC Per rx protocol 08/13/19 12:00 09/12/19 11:59 Warfarin Sodium (Coumadin) 5 mg ONCE ORAL 08/17/19 17:00 08/17/19 19:00 Remedios Albarran MD Aug 17, 2019 12:20
--- NOTE | 2019-08-17 15:30 | Cardiac Electrophysiology PN ---
Assessment/Plan Assessment/Plan 1. Paroxysmal atrial fibrillation. AV paced on digoxin 0.125 daily and metoprolol 50 b.i.d and Coumadin per Rx 2. Status post Biotronik DDD pacemaker implantation by me in 2017 with Nl fx 3. History of hypertension. Stable 4. 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 Now on Dig, Coreg, Hydralazine and isordil May need pacer upgrade to ICD if EF remains less than 35% 5. Diabetes. 6. CVA in 1990. 7. Status post aortic valve replacement in 1985 and then again in 1995. 8. Abdominal pain due to bleeding peritoneum with moderate organized clot in the cul-de-sac, FU by Dr. Estella GAITAN RN and daughter Already has appt with me. Subjective Subjective Alert NAD. No CP or SOB..Daughter at bedside. DC in progress Objective Last 24 Hour Vital Signs Date Time Temp Pulse Resp B/P (MAP) Pulse Ox O2 Delivery O2 Flow Rate FiO2 08/17/19 12:00 97.7 82 20 116/60 (78) 96 08/17/19 09:00 Room Air 08/17/19 08:31 120/64 08/17/19 08:31 92 120/64 08/17/19 08:31 120/64 08/17/19 08:26 97.6 92 20 120/64 (82) 96 08/17/19 04:00 97.6 92 20 120/64 (82) 96 08/17/19 00:00 98.8 83 16 117/55 (75) 96 08/16/19 21:00 Room Air 08/16/19 20:37 116/59 08/16/19 20:37 74 116/59 08/16/19 20:00 97.5 74 18 116/59 (78) 96 08/16/19 17:24 120/74 08/16/19 16:00 98.0 72 18 120/74 (89) 99 Intake and Output 08/16/19 08/17/19 19:00 07:00 Intake Total 900 ml Balance 900 ml Intake Oral 900 ml # Voids 4 4 # Bowel Movements 1 1 Laboratory Tests Test 08/17/19 05:45 White Blood Count 3.8 K/UL (4.8-10.8) L Red Blood Count 3.22 M/UL (4.20-5.40) L Hemoglobin 9.7 G/DL (12.0-16.0) L Hematocrit 28.1 % (37.0-47.0) L Mean Corpuscular Volume 87 FL (80-99) Mean Corpuscular Hemoglobin 30.0 PG (27.0-31.0) Mean Corpuscular Hemoglobin Concent 34.3 G/DL (32.0-36.0) Red Cell Distribution Width 16.0 % (11.6-14.8) H Platelet Count 118 K/UL (150-450) L Mean Platelet Volume 5.9 FL (6.5-10.1) L Neutrophils (%) (Auto) 73.2 % (45.0-75.0) Lymphocytes (%) (Auto) 14.7 % (20.0-45.0) L Monocytes (%) (Auto) 8.4 % (1.0-10.0) Eosinophils (%) (Auto) 2.7 % (0.0-3.0) Basophils (%) (Auto) 1.0 % (0.0-2.0) Prothrombin Time 16.6 SEC (9.30-11.50) H Prothromb Time International Ratio 1.6 (0.9-1.1) H Sodium Level 144 MMOL/L (136-145) Potassium Level 4.5 MMOL/L (3.5-5.1) Chloride Level 112 MMOL/L (98-107) H Carbon Dioxide Level 23 MMOL/L (21-32) Anion Gap 9 mmol/L (5-15) Blood Urea Nitrogen 41 mg/dL (7-18) H Creatinine 1.4 MG/DL (0.55-1.30) H Estimat Glomerular Filtration Rate mL/min (>60) Glucose Level 132 MG/DL (74-106) H Calcium Level 9.0 MG/DL (8.5-10.1) Objective HEAD AND NECK: No JVD. LUNGS: Clear. CARDIOVASCULAR: Metallic S2 with soft systolic murmur. Sternotomy intact. Pacemaker in the left subclavian. ABDOMEN: Soft. EXTREMITIES: With no pitting edema. Osmany Carmona MD Aug 17, 2019 15:30
[2019-08-17 16:00] VITALS: BP 129/64
[2019-08-17] MEDS ORDERED: Warfarin Sodium 5mg ORAL SCH (17:00)
--- NOTE | 2019-08-17 17:02 | Surgery Progress Note ---
Surgery Progress Note Subjective Additional Comments INR 1.6 today. Family at bedside. No acute events. No pain no nausea or fever chills. Labs stable. Discharge planning has INR stabilizes. Objective Last 24 Hour Vital Signs Date Time Temp Pulse Resp B/P (MAP) Pulse Ox O2 Delivery O2 Flow Rate FiO2 08/17/19 16:00 97.9 83 20 129/64 (85) 98 08/17/19 12:00 97.7 82 20 116/60 (78) 96 08/17/19 09:00 Room Air 08/17/19 08:31 120/64 08/17/19 08:31 92 120/64 08/17/19 08:31 120/64 08/17/19 08:26 97.6 92 20 120/64 (82) 96 08/17/19 04:00 97.6 92 20 120/64 (82) 96 08/17/19 00:00 98.8 83 16 117/55 (75) 96 08/16/19 21:00 Room Air 08/16/19 20:37 116/59 08/16/19 20:37 74 116/59 08/16/19 20:00 97.5 74 18 116/59 (78) 96 08/16/19 17:24 120/74 I&O Intake and Output 08/16/19 08/17/19 19:00 07:00 Intake Total 900 ml Balance 900 ml Intake Oral 900 ml # Voids 4 4 # Bowel Movements 1 1 Dressing: other Wound: other Drains: other Cardiovascular: RSR Respiratory: clear Abdomen: soft, non-tender, present bowel sounds, non-distended Extremities: no edema, no tenderness, no cyanosis Laboratory Tests Test 08/17/19 05:45 White Blood Count 3.8 K/UL (4.8-10.8) L Red Blood Count 3.22 M/UL (4.20-5.40) L Hemoglobin 9.7 G/DL (12.0-16.0) L Hematocrit 28.1 % (37.0-47.0) L Mean Corpuscular Volume 87 FL (80-99) Mean Corpuscular Hemoglobin 30.0 PG (27.0-31.0) Mean Corpuscular Hemoglobin Concent 34.3 G/DL (32.0-36.0) Red Cell Distribution Width 16.0 % (11.6-14.8) H Platelet Count 118 K/UL (150-450) L Mean Platelet Volume 5.9 FL (6.5-10.1) L Neutrophils (%) (Auto) 73.2 % (45.0-75.0) Lymphocytes (%) (Auto) 14.7 % (20.0-45.0) L Monocytes (%) (Auto) 8.4 % (1.0-10.0) Eosinophils (%) (Auto) 2.7 % (0.0-3.0) Basophils (%) (Auto) 1.0 % (0.0-2.0) Prothrombin Time 16.6 SEC (9.30-11.50) H Prothromb Time International Ratio 1.6 (0.9-1.1) H Sodium Level 144 MMOL/L (136-145) Potassium Level 4.5 MMOL/L (3.5-5.1) Chloride Level 112 MMOL/L (98-107) H Carbon Dioxide Level 23 MMOL/L (21-32) Anion Gap 9 mmol/L (5-15) Blood Urea Nitrogen 41 mg/dL (7-18) H Creatinine 1.4 MG/DL (0.55-1.30) H Estimat Glomerular Filtration Rate mL/min (>60) Glucose Level 132 MG/DL (74-106) H Calcium Level 9.0 MG/DL (8.5-10.1) Plan Problems: (1) Abdominal pain Assessment & Plan: 73-year-old female with abdominal pain likely due to intra- abdominal hemorrhage from coagulopathy. No trauma. H&H stable. Exam with mild tenderness but no peritonitis. No acute surgical invention recommend at this time Trend H&H We will follow with serial abdominal exams Reverse coagulopathy-appropriate now Vitamin K and FFP as needed Okay to start clear liquids Cardiology consultation Nephrology consultation worsening renal insufficiency IV fluids Advance diet Bowel regimen resume anticoag lovenox transition to coumadin d/c planning patient wants to go home We will follow with recommendations Thank you for let me participate in patient's care (2) Intra abdominal hemorrhage Assessment & Plan: There is a severe cardiomegaly with biatrial chamber enlargement. 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 Pacemaker is present. There is a hiatal hernia. The lung bases are clear. The IVC and hepatic veins are markedly enlarged. There are generalized reticular densities throughout the mesentery and omentum nonspecific. There is some free fluid within the pelvis especially in the area of the cul-de-sac posterior to the uterus. The fluid has a areas of increased density, suspicious for blood. The nature of the hemoperitoneum is not known and the clinical correlation is needed. There are no signs of trauma or any history of such. There is a hypodensity within the left hemipelvis measuring about 1.7 cm which could be an ovarian cyst. Consider rupture of an ovarian cyst or mass is certainly possible. There may be 1 cm focus of fat (image #[id number]) in association with the left ovary and adjacent to the cystic focus suggesting the possibility of an ovarian dermoid. There is a calcified fibroid within the uterus measuring 1.6 cm. IMPRESSION: Pelvic hemoperitoneum with moderate organized clot in the cul-de-sac. Nature of this is not known but consider possibility of a ruptured ovarian cyst and/or mass. Question of an ovarian dermoid on the left side. Differential includes trauma, iatrogenic causes from recent surgery/procedures, coagulopathies, antiocoagulation Rx or other causes of hemoperitoneum. Calcified uterine fibroid. Severe cardiomyopathy with biatrial chamber enlargement. Distended IVC and hepatic veins probably on the basis of tricuspid regurgitation or right heart failure. Atherosclerotic vascular disease. Pacemaker. Hiatal hernia. Mesenteric nodularity and reticulation may be on the basis of ascites/ hemoperitoneum described earlier. Iain Soria Aug 17, 2019 17:02
--- NOTE | 2019-08-17 19:11 | NUR ---
HAND-OFF: Report given to BELINDA Hines.
--- NOTE | 2019-08-17 19:30 | NUR ---
NURSE NOTES: Received patient in bed, awake, amharic speaking, no acute distress at this time. Call light in reach, instructed to call for assistance. Will continue plan of care.
[2019-08-17 20:00] VITALS: BP 111/42
[2019-08-17] MEDS ORDERED: Enoxaparin 40mg Inj SUBQ SCH (21:00)
[2019-08-18] VITALS: BP 120/53
[2019-08-18 04:00] VITALS: BP 134/67
[2019-08-18] MEDS: NovoLOG Insulin Flexpen SUBQ SCH ×4 (06:06→21:12)
--- NOTE | 2019-08-18 07:16 | NUR ---
HAND-OFF: Report given to Keena TREVINO.
--- NOTE | 2019-08-18 07:22 | NUR ---
NURSE NOTES: Patient awake, alert x4, [place] speaking; room air, no sing of distress and shortness of breath; no sing of chest pain; IV Left For-Arm 24G flushes well; patient's own cane within reach; side rails up x2, breaks engaged, bed locked; will check blood sugar as scheduled; call light within reach; will keep monitoring.
[2019-08-18 07:57] LABS: BASOPHILS % (AUTO) 1.2 % (0.0-2.0); EOSINOPHILS % (AUTO) 4.6 % (0.0-3.0); HEMATOCRIT 30.2 % (37.0-47.0); HEMOGLOBIN 9.7 G/DL (12.0-16.0); LYMPHOCYTES % (AUTO) 15.1 % (20.0-45.0); MEAN CORPUSCULAR VOLUME 92 FL (80-99); MONOCYTES % (AUTO) 9.2 % (1.0-10.0); PLATELET COUNT 131 K/UL (150-450); RED BLOOD COUNT 3.27 M/UL (4.20-5.40); RED CELL DISTRIBUTION WIDTH 18.8 % (11.6-14.8); WHITE BLOOD COUNT 3.9 K/UL (4.8-10.8)
[2019-08-18 08:00] VITALS: BP 132/54
[2019-08-18 08:26] LABS: ANION GAP 6 mmol/L (5-15); BLOOD UREA NITROGEN 35 mg/dL (7-18); CARBON DIOXIDE 26 MMOL/L (21-32); CHLORIDE 112 MMOL/L (98-107); CREATININE 1.2 MG/DL (0.55-1.30); POTASSIUM 4.4 MMOL/L (3.5-5.1); SODIUM 144 MMOL/L (136-145)
[2019-08-18 08:40] LABS: INR 2.2 (0.9-1.1)
[2019-08-18] MEDS: Liothyronine 5mcg tab ORAL SCH (08:56)
[2019-08-18] MEDS: Docusate 100mg cap ORAL SCH ×3 (08:56→17:06)
[2019-08-18] MEDS: HydrALAZINE 10mg Tab ORAL SCH ×2 (08:57→21:08)
[2019-08-18] MEDS: Carvedilol 12.5mg tab ORAL SCH ×2 (08:57→21:09)
--- NOTE | 2019-08-18 09:09 | Nephrology Progress Note ---
Assessment/Plan Problem List: (1) Acute renal failure Assessment: resolved (2) Diabetic nephropathy (3) Diabetes mellitus (4) HTN (hypertension) (5) Pacemaker Assessment Renal failure ? Acute on chronic Pelvic hemoperitoneum. Epigastric pain. Nausea. Hypertension. Diabetes type 2. Atrial fibrillation. Hypercholesterolemia. Cerebrovascular disease. 1990 Plan folic acid- cytomel- Slow Hydrate- Anemia avila- transfused monitor renal parameters 2D echo Pending Kidney [facility] medical Renal disease med surg- DC planning Subjective ROS Limited/Unobtainable: No Objective Objective Last 24 Hour Vital Signs Date Time Temp Pulse Resp B/P (MAP) Pulse Ox O2 Delivery O2 Flow Rate FiO2 08/18/19 08:57 132/54 08/18/19 08:57 70 132/54 08/18/19 08:57 132/54 08/18/19 08:00 97.8 70 20 132/54 (80) 96 08/18/19 04:00 98.0 75 18 134/67 (89) 94 08/18/19 00:00 97.4 70 18 120/53 (75) 97 08/17/19 21:00 Room Air 08/17/19 20:41 100 111/42 08/17/19 20:40 111/42 08/17/19 20:00 97.2 100 18 111/42 (65) 100 08/17/19 17:21 129/64 08/17/19 16:00 97.9 83 20 129/64 (85) 98 08/17/19 12:00 97.7 82 20 116/60 (78) 96 Intake and Output 08/17/19 08/18/19 19:00 07:00 Intake Total 600 ml 240 ml Balance 600 ml 240 ml Intake Oral 600 ml 240 ml # Voids 3 1 Laboratory Tests 08/18/19 06:19: White Blood Count 3.9L, Red Blood Count 3.27L, Hemoglobin 9.7L, Hematocrit 30.2L , Mean Corpuscular Volume 92, Mean Corpuscular Hemoglobin 29.5, Mean Corpuscular Hemoglobin Concent 32.0, Red Cell Distribution Width 18.8H, Platelet Count 131L, Mean Platelet Volume 7.4, Neutrophils (%) (Auto) 70.0, Lymphocytes (%) (Auto) 15.1L, Monocytes (%) (Auto) 9.2, Eosinophils (%) (Auto) 4.6H, Basophils (%) (Auto) 1.2, Prothrombin Time 22.0H, Prothromb Time International Ratio 2.2H, Sodium Level 144, Potassium Level 4.4, Chloride Level 112H, Carbon Dioxide Level 26, Anion Gap 6, Blood Urea Nitrogen 35H, Creatinine 1.2, Estimat Glomerular Filtration Rate , Glucose Level 118H, Calcium Level 9.0 Height (Feet): 5 Height (Inches): 2.00 Weight (Pounds): 102 General Appearance: no apparent distress Objective no change Kibry Rivera MD Aug 18, 2019 09:09
--- NOTE | 2019-08-18 09:52 | General Progress Note ---
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 Bowel regimen of Colace and MiraLAX Continue PPI Sent for fecal occult blood stool to rule out any GI bleed Outpatient GI procedure fu cardiology recs Subjective Allergies: Coded Allergies: No Known Allergies (Unverified , 09/17/16) Objective Last 24 Hour Vital Signs Date Time Temp Pulse Resp B/P (MAP) Pulse Ox O2 Delivery O2 Flow Rate FiO2 08/18/19 08:57 132/54 08/18/19 08:57 70 132/54 08/18/19 08:57 132/54 08/18/19 08:00 97.8 70 20 132/54 (80) 96 08/18/19 04:00 98.0 75 18 134/67 (89) 94 08/18/19 00:00 97.4 70 18 120/53 (75) 97 08/17/19 21:00 Room Air 08/17/19 20:41 100 111/42 08/17/19 20:40 111/42 08/17/19 20:00 97.2 100 18 111/42 (65) 100 08/17/19 17:21 129/64 08/17/19 16:00 97.9 83 20 129/64 (85) 98 08/17/19 12:00 97.7 82 20 116/60 (78) 96 Intake and Output 08/17/19 08/18/19 19:00 07:00 Intake Total 600 ml 240 ml Balance 600 ml 240 ml Intake Oral 600 ml 240 ml # Voids 3 1 Laboratory Tests 08/18/19 06:19: White Blood Count 3.9L, Red Blood Count 3.27L, Hemoglobin 9.7L, Hematocrit 30.2L , Mean Corpuscular Volume 92, Mean Corpuscular Hemoglobin 29.5, Mean Corpuscular Hemoglobin Concent 32.0, Red Cell Distribution Width 18.8H, Platelet Count 131L, Mean Platelet Volume 7.4, Neutrophils (%) (Auto) 70.0, Lymphocytes (%) (Auto) 15.1L, Monocytes (%) (Auto) 9.2, Eosinophils (%) (Auto) 4.6H, Basophils (%) (Auto) 1.2, Prothrombin Time 22.0H, Prothromb Time International Ratio 2.2H, Sodium Level 144, Potassium Level 4.4, Chloride Level 112H, Carbon Dioxide Level 26, Anion Gap 6, Blood Urea Nitrogen 35H, Creatinine 1.2, Estimat Glomerular Filtration Rate , Glucose Level 118H, Calcium Level 9.0 Height (Feet): 5 Height (Inches): 2.00 Weight (Pounds): 102 General Appearance: no apparent distress EENT: normal ENT inspection Neck: supple Cardiovascular: normal rate Respiratory/Chest: decreased breath sounds Abdomen: normal bowel sounds, non tender, soft Extremities: non-tender Charan Pimentel MD Aug 18, 2019 09:52
--- NOTE | 2019-08-18 11:28 | Cardiac Electrophysiology PN ---
Assessment/Plan Assessment/Plan 1. Paroxysmal atrial fibrillation. AV paced on digoxin 0.125 daily and metoprolol 50 b.i.d and Coumadin per Rx 2. Status post Biotronik DDD pacer by me in 2017 with Nl fx 3. History of hypertension. Stable 4. 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 Now on Dig, Coreg, Hydralazine and isordil May need pacer upgrade to ICD if EF remains less than 35% 5. Diabetes. 6. CVA in 1990. 7. Status post aortic valve replacement in 1985 and then again in 1995. 8. Abdominal pain due to bleeding peritoneum with moderate organized clot in the cul-de-sac, FU by Dr. Estella GAITAN RN Subjective Subjective Alert NAD. No CP or SOB. Objective Last 24 Hour Vital Signs Date Time Temp Pulse Resp B/P (MAP) Pulse Ox O2 Delivery O2 Flow Rate FiO2 08/18/19 09:00 Room Air 08/18/19 08:57 132/54 08/18/19 08:57 70 132/54 08/18/19 08:57 132/54 08/18/19 08:00 97.8 70 20 132/54 (80) 96 08/18/19 04:00 98.0 75 18 134/67 (89) 94 08/18/19 00:00 97.4 70 18 120/53 (75) 97 08/17/19 21:00 Room Air 08/17/19 20:41 100 111/42 08/17/19 20:40 111/42 08/17/19 20:00 97.2 100 18 111/42 (65) 100 08/17/19 17:21 129/64 08/17/19 16:00 97.9 83 20 129/64 (85) 98 08/17/19 12:00 97.7 82 20 116/60 (78) 96 Intake and Output 08/17/19 08/18/19 19:00 07:00 Intake Total 600 ml 240 ml Balance 600 ml 240 ml Intake Oral 600 ml 240 ml # Voids 3 1 Laboratory Tests Test 08/18/19 06:19 White Blood Count 3.9 K/UL (4.8-10.8) L Red Blood Count 3.27 M/UL (4.20-5.40) L Hemoglobin 9.7 G/DL (12.0-16.0) L Hematocrit 30.2 % (37.0-47.0) L Mean Corpuscular Volume 92 FL (80-99) Mean Corpuscular Hemoglobin 29.5 PG (27.0-31.0) Mean Corpuscular Hemoglobin Concent 32.0 G/DL (32.0-36.0) Red Cell Distribution Width 18.8 % (11.6-14.8) H Platelet Count 131 K/UL (150-450) L Mean Platelet Volume 7.4 FL (6.5-10.1) Neutrophils (%) (Auto) 70.0 % (45.0-75.0) Lymphocytes (%) (Auto) 15.1 % (20.0-45.0) L Monocytes (%) (Auto) 9.2 % (1.0-10.0) Eosinophils (%) (Auto) 4.6 % (0.0-3.0) H Basophils (%) (Auto) 1.2 % (0.0-2.0) Prothrombin Time 22.0 SEC (9.30-11.50) H Prothromb Time International Ratio 2.2 (0.9-1.1) H Sodium Level 144 MMOL/L (136-145) Potassium Level 4.4 MMOL/L (3.5-5.1) Chloride Level 112 MMOL/L (98-107) H Carbon Dioxide Level 26 MMOL/L (21-32) Anion Gap 6 mmol/L (5-15) Blood Urea Nitrogen 35 mg/dL (7-18) H Creatinine 1.2 MG/DL (0.55-1.30) Estimat Glomerular Filtration Rate mL/min (>60) Glucose Level 118 MG/DL (74-106) H Calcium Level 9.0 MG/DL (8.5-10.1) Objective HEAD AND NECK: No JVD. LUNGS: Clear. CARDIOVASCULAR: Metallic S2 with soft systolic murmur. Sternotomy intact. Pacemaker in the left subclavian. ABDOMEN: Soft. EXTREMITIES: With no pitting edema. Osmany Carmona MD Aug 18, 2019 11:28
[2019-08-18 12:00] VITALS: BP 120/58
--- NOTE | 2019-08-18 13:13 | Pulmonology Progress Note ---
Assessment/Plan Problems: (1) Intra abdominal hemorrhage (2) Coagulopathy (3) Acute renal failure (4) Atrial fibrillation (5) HTN (hypertension) (6) Abdominal pain (7) Pacemaker (8) Aortic valve replaced (9) Status post mitral valve replacement (10) Cerebral vascular disease (11) Diabetes mellitus (12) Chronic anticoagulation Assessment/Plan doing better no new complains on coumadin daily, f/u INR daily, therapeutic now Blood sugar fairly controlled, symptomatic treatment v-paced, pacemaker will be interrogated check electrolytes symptomatic treatment dc planning Subjective ROS Limited/Unobtainable: No Constitutional: Reports: no symptoms HEENT: Repors: no symptoms Respiratory: Reports: no symptoms Allergies: Coded Allergies: No Known Allergies (Unverified , 09/17/16) Objective Last 24 Hour Vital Signs Date Time Temp Pulse Resp B/P (MAP) Pulse Ox O2 Delivery O2 Flow Rate FiO2 08/18/19 12:00 98.1 76 20 120/58 (78) 96 08/18/19 09:00 Room Air 08/18/19 08:57 132/54 08/18/19 08:57 70 132/54 08/18/19 08:57 132/54 08/18/19 08:00 97.8 70 20 132/54 (80) 96 08/18/19 04:00 98.0 75 18 134/67 (89) 94 08/18/19 00:00 97.4 70 18 120/53 (75) 97 08/17/19 21:00 Room Air 08/17/19 20:41 100 111/42 08/17/19 20:40 111/42 08/17/19 20:00 97.2 100 18 111/42 (65) 100 08/17/19 17:21 129/64 08/17/19 16:00 97.9 83 20 129/64 (85) 98 Intake and Output 08/17/19 08/18/19 18:59 06:59 Intake Total 600 ml 240 ml Balance 600 ml 240 ml Intake Oral 600 ml 240 ml # Voids 3 1 Objective General Appearance: WD/WN, no apparent distress Lines, tubes and drains: peripheral HEENT: normocephalic, atraumatic Neck: non-tender, normal alignment Respiratory/Chest: chest wall non-tender, lungs clear Breasts: no masses Cardiovascular/Chest: normal peripheral pulses Abdomen: non tender Extremities: normal range of motion Skin Exam: normal pigmentation Laboratory Tests 08/18/19 06:19: White Blood Count 3.9L, Red Blood Count 3.27L, Hemoglobin 9.7L, Hematocrit 30.2L , Mean Corpuscular Volume 92, Mean Corpuscular Hemoglobin 29.5, Mean Corpuscular Hemoglobin Concent 32.0, Red Cell Distribution Width 18.8H, Platelet Count 131L, Mean Platelet Volume 7.4, Neutrophils (%) (Auto) 70.0, Lymphocytes (%) (Auto) 15.1L, Monocytes (%) (Auto) 9.2, Eosinophils (%) (Auto) 4.6H, Basophils (%) (Auto) 1.2, Prothrombin Time 22.0H, Prothromb Time International Ratio 2.2H, Sodium Level 144, Potassium Level 4.4, Chloride Level 112H, Carbon Dioxide Level 26, Anion Gap 6, Blood Urea Nitrogen 35H, Creatinine 1.2, Estimat Glomerular Filtration Rate , Glucose Level 118H, Calcium Level 9.0 Current Medications Medications (Trade) Dose Ordered Sig/Grisel Route PRN Reason Start Time Stop Time Status Last Admin Dose Admin Acetaminophen (Tylenol) 650 mg Q4H PRN ORAL fever 08/08/19 17:30 09/07/19 17:29 Allopurinol (Allopurinol) 150 mg DAILY ORAL 08/12/19 09:00 09/11/19 08:59 08/18/19 08:56 Carvedilol (Coreg) 12.5 mg EVERY 12 HOURS ORAL 08/10/19 21:00 09/09/19 20:59 08/18/19 08:57 Dextrose (Dextrose 50%) 25 ml Q30M PRN IV Hypoglycemia 08/08/19 17:30 09/07/19 17:29 Dextrose (Dextrose 50%) 50 ml Q30M PRN IV Hypoglycemia 08/08/19 17:30 09/07/19 17:29 Docusate Sodium (Colace) 100 mg TID ORAL 08/10/19 13:00 09/08/19 17:59 08/18/19 12:24 Enoxaparin Sodium (Lovenox) 40 mg Q24H SUBQ 08/17/19 21:00 09/16/19 20:59 08/17/19 20:39 Folic Acid (Folate) 2 mg DAILY ORAL 08/10/19 10:15 09/09/19 10:14 08/18/19 08:57 Hydralazine HCl (Apresoline) 10 mg Q12HR ORAL 08/11/19 21:00 09/09/19 17:59 08/18/19 08:57 Insulin Aspart (NovoLOG) BEFORE MEALS AND HS SUBQ 08/08/19 21:00 09/07/19 20:59 08/18/19 12:24 Isosorbide Dinitrate (Isordil) 10 mg BID ORAL 08/10/19 18:00 09/09/19 17:59 08/18/19 08:57 Liothyronine Sodium (Cytomel) 5 mcg DAILY ORAL 08/11/19 09:00 09/10/19 08:59 08/18/19 08:56 Nitroglycerin (Ntg) 0.4 mg Q5M X 3 DOSES PRN SL Prn Chest Pain 08/08/19 17:30 09/07/19 17:29 Ondansetron HCl (Zofran) 4 mg Q6H PRN IVP Nausea & Vomiting 08/08/19 17:30 09/07/19 17:29 Pantoprazole (Protonix) 40 mg BID ORAL 08/09/19 18:00 09/08/19 17:59 08/18/19 08:57 Polyethylene Glycol (Miralax) 17 gm HSPRN PRN ORAL Constipation 08/08/19 21:00 09/07/19 20:59 Temazepam (Restoril) 15 mg HSPRN PRN ORAL Insomnia 08/14/19 16:45 08/21/19 16:44 Warfarin Sodium (Coumadin per pharmacy) 1 ea DAILY PRN MISC Per rx protocol 08/13/19 12:00 09/12/19 11:59 Warfarin Sodium (Coumadin) 1 mg ONCE ORAL 08/18/19 17:00 08/18/19 19:00 Remedios Albarran MD Aug 18, 2019 13:13
[2019-08-18 16:00] VITALS: BP 125/59
[2019-08-18] MEDS ORDERED: Warfarin Sodium 1mg ORAL SCH (17:00)
--- NOTE | 2019-08-18 17:28 | Internal Med Progress Note ---
Subjective Date of Service: Aug 18, 2019 Physician Name Sher Hansen Attending Physician Kobi Real MD Current Medications Medications (Trade) Dose Ordered Sig/Grisel Route PRN Reason Start Time Stop Time Status Last Admin Dose Admin Acetaminophen (Tylenol) 650 mg Q4H PRN ORAL fever 08/08/19 17:30 09/07/19 17:29 Allopurinol (Allopurinol) 150 mg DAILY ORAL 08/12/19 09:00 09/11/19 08:59 08/18/19 08:56 Carvedilol (Coreg) 12.5 mg EVERY 12 HOURS ORAL 08/10/19 21:00 09/09/19 20:59 08/18/19 08:57 Dextrose (Dextrose 50%) 25 ml Q30M PRN IV Hypoglycemia 08/08/19 17:30 09/07/19 17:29 Dextrose (Dextrose 50%) 50 ml Q30M PRN IV Hypoglycemia 08/08/19 17:30 09/07/19 17:29 Docusate Sodium (Colace) 100 mg TID ORAL 08/10/19 13:00 09/08/19 17:59 08/18/19 17:06 Folic Acid (Folate) 2 mg DAILY ORAL 08/10/19 10:15 09/09/19 10:14 08/18/19 08:57 Hydralazine HCl (Apresoline) 10 mg Q12HR ORAL 08/11/19 21:00 09/09/19 17:59 08/18/19 08:57 Insulin Aspart (NovoLOG) BEFORE MEALS AND HS SUBQ 08/08/19 21:00 09/07/19 20:59 08/18/19 17:08 Isosorbide Dinitrate (Isordil) 10 mg BID ORAL 08/10/19 18:00 09/09/19 17:59 08/18/19 17:06 Liothyronine Sodium (Cytomel) 5 mcg DAILY ORAL 08/11/19 09:00 09/10/19 08:59 08/18/19 08:56 Nitroglycerin (Ntg) 0.4 mg Q5M X 3 DOSES PRN SL Prn Chest Pain 08/08/19 17:30 09/07/19 17:29 Ondansetron HCl (Zofran) 4 mg Q6H PRN IVP Nausea & Vomiting 08/08/19 17:30 09/07/19 17:29 Pantoprazole (Protonix) 40 mg BID ORAL 08/09/19 18:00 09/08/19 17:59 08/18/19 17:06 Polyethylene Glycol (Miralax) 17 gm HSPRN PRN ORAL Constipation 08/08/19 21:00 09/07/19 20:59 Temazepam (Restoril) 15 mg HSPRN PRN ORAL Insomnia 08/14/19 16:45 08/21/19 16:44 Warfarin Sodium (Coumadin per pharmacy) 1 ea DAILY PRN MISC Per rx protocol 08/13/19 12:00 09/12/19 11:59 Warfarin Sodium (Coumadin) 1 mg ONCE ORAL 08/18/19 17:00 08/18/19 19:00 Allergies: Coded Allergies: No Known Allergies (Unverified , 09/17/16) ROS Limited/Unobtainable: No Constitutional: Reports: no symptoms HEENT: Reports: no symptoms Cardiovascular: Reports: no symptoms Respiratory: Reports: no symptoms Gastrointestinal/Abdominal: Reports: no symptoms Genitourinary: Reports: no symptoms Neurologic/Psychiatric: Reports: no symptoms Subjective 73 YO F admitted with abdominal pain. Now pelvic hemoperitoneum and CHF. Cover for Int Sunny-Dr Real Objective Last Vital Signs Date Time Temp Pulse Resp B/P (MAP) Pulse Ox O2 Delivery O2 Flow Rate FiO2 08/18/19 17:06 125/59 08/18/19 16:00 98.8 82 20 96 08/18/19 09:00 Room Air 08/09/19 09:00 Laboratory Tests Test 08/18/19 06:19 White Blood Count 3.9 K/UL (4.8-10.8) L Red Blood Count 3.27 M/UL (4.20-5.40) L Hemoglobin 9.7 G/DL (12.0-16.0) L Hematocrit 30.2 % (37.0-47.0) L Mean Corpuscular Volume 92 FL (80-99) Mean Corpuscular Hemoglobin 29.5 PG (27.0-31.0) Mean Corpuscular Hemoglobin Concent 32.0 G/DL (32.0-36.0) Red Cell Distribution Width 18.8 % (11.6-14.8) H Platelet Count 131 K/UL (150-450) L Mean Platelet Volume 7.4 FL (6.5-10.1) Neutrophils (%) (Auto) 70.0 % (45.0-75.0) Lymphocytes (%) (Auto) 15.1 % (20.0-45.0) L Monocytes (%) (Auto) 9.2 % (1.0-10.0) Eosinophils (%) (Auto) 4.6 % (0.0-3.0) H Basophils (%) (Auto) 1.2 % (0.0-2.0) Prothrombin Time 22.0 SEC (9.30-11.50) H Prothromb Time International Ratio 2.2 (0.9-1.1) H Sodium Level 144 MMOL/L (136-145) Potassium Level 4.4 MMOL/L (3.5-5.1) Chloride Level 112 MMOL/L (98-107) H Carbon Dioxide Level 26 MMOL/L (21-32) Anion Gap 6 mmol/L (5-15) Blood Urea Nitrogen 35 mg/dL (7-18) H Creatinine 1.2 MG/DL (0.55-1.30) Estimat Glomerular Filtration Rate mL/min (>60) Glucose Level 118 MG/DL (74-106) H Calcium Level 9.0 MG/DL (8.5-10.1) Intake and Output 08/17/19 08/18/19 18:59 06:59 Intake Total 600 ml 240 ml Balance 600 ml 240 ml Intake Oral 600 ml 240 ml # Voids 3 1 Objective General Appearance: WD/WN, no apparent distress, alert EENT: PERRL/EOMI, normal ENT inspection Neck: non-tender, normal alignment, supple, normal inspection Cardiovascular: normal peripheral pulses, normal rate, regular rhythm, no gallop/murmur, no JVD Respiratory/Chest: chest wall non-tender, lungs clear, normal breath sounds, no respiratory distress, no accessory muscle use Abdomen: normal bowel sounds, decreased bowel sounds, guarding, tender Extremities: normal range of motion, non-tender 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 (2) Hemoperitoneum, nontraumatic Assessment & Plan: Due to coagulopathy due to coumadin. Hold coumadin. Follow hemoglobin. Non surgical-see surgery note=Dr Soria. (3) Epigastric pain (4) Nausea Assessment & Plan: tolerating clear liquid diet-see GI note=Dr Pimentel (5) HTN (hypertension) (6) Atrial fibrillation Assessment & Plan: Hold digoxin due to toxicity per cardiology (7) Coagulopathy Assessment & Plan: Lovenox subcut until coumadin therapeutic (8) Cerebral vascular disease (9) Pacemaker Assessment & Plan: EP Cardiology=Dr Carmona. Await pacemaker interrogation (10) Status post mitral valve replacement (11) Renal failure Assessment & Plan: Followed by nephrology =Dr Rivera (12) CHF (congestive heart failure) Assessment & Plan: BNP>2000. LVEF=30-35%. Cardiology consult=Dr Carmona Assessment/Plan Discharge planning: group home fac Sher Hansen MD Aug 18, 2019 17:28
--- NOTE | 2019-08-18 19:27 | NUR ---
HAND-OFF: Report given to BELINDA Mistry.
--- NOTE | 2019-08-18 19:28 | Surgery Progress Note ---
Surgery Progress Note Subjective Symptoms: improved, pain absent, tolerating diet, voiding well, passing flatus , BM Additional Comments inr therapeutic Lovenox d/c dc planning Objective Last 24 Hour Vital Signs Date Time Temp Pulse Resp B/P (MAP) Pulse Ox O2 Delivery O2 Flow Rate FiO2 08/18/19 17:06 125/59 08/18/19 16:00 98.8 82 20 125/59 (81) 96 08/18/19 12:00 98.1 76 20 120/58 (78) 96 08/18/19 09:00 Room Air 08/18/19 08:57 132/54 08/18/19 08:57 70 132/54 08/18/19 08:57 132/54 08/18/19 08:00 97.8 70 20 132/54 (80) 96 08/18/19 04:00 98.0 75 18 134/67 (89) 94 08/18/19 00:00 97.4 70 18 120/53 (75) 97 08/17/19 21:00 Room Air 08/17/19 20:41 100 111/42 08/17/19 20:40 111/42 08/17/19 20:00 97.2 100 18 111/42 (65) 100 I&O Intake and Output 08/17/19 08/18/19 19:00 07:00 Intake Total 600 ml 240 ml Balance 600 ml 240 ml Intake Oral 600 ml 240 ml # Voids 3 1 Cardiovascular: RSR Respiratory: clear Abdomen: soft, flat, non-tender, present bowel sounds, non-distended Extremities: no edema, no tenderness, no cyanosis Laboratory Tests Test 08/18/19 06:19 White Blood Count 3.9 K/UL (4.8-10.8) L Red Blood Count 3.27 M/UL (4.20-5.40) L Hemoglobin 9.7 G/DL (12.0-16.0) L Hematocrit 30.2 % (37.0-47.0) L Mean Corpuscular Volume 92 FL (80-99) Mean Corpuscular Hemoglobin 29.5 PG (27.0-31.0) Mean Corpuscular Hemoglobin Concent 32.0 G/DL (32.0-36.0) Red Cell Distribution Width 18.8 % (11.6-14.8) H Platelet Count 131 K/UL (150-450) L Mean Platelet Volume 7.4 FL (6.5-10.1) Neutrophils (%) (Auto) 70.0 % (45.0-75.0) Lymphocytes (%) (Auto) 15.1 % (20.0-45.0) L Monocytes (%) (Auto) 9.2 % (1.0-10.0) Eosinophils (%) (Auto) 4.6 % (0.0-3.0) H Basophils (%) (Auto) 1.2 % (0.0-2.0) Prothrombin Time 22.0 SEC (9.30-11.50) H Prothromb Time International Ratio 2.2 (0.9-1.1) H Sodium Level 144 MMOL/L (136-145) Potassium Level 4.4 MMOL/L (3.5-5.1) Chloride Level 112 MMOL/L (98-107) H Carbon Dioxide Level 26 MMOL/L (21-32) Anion Gap 6 mmol/L (5-15) Blood Urea Nitrogen 35 mg/dL (7-18) H Creatinine 1.2 MG/DL (0.55-1.30) Estimat Glomerular Filtration Rate mL/min (>60) Glucose Level 118 MG/DL (74-106) H Calcium Level 9.0 MG/DL (8.5-10.1) Plan Problems: (1) Abdominal pain Assessment & Plan: 73-year-old female with abdominal pain likely due to intra- abdominal hemorrhage from coagulopathy. No trauma. H&H stable. Exam with mild tenderness but no peritonitis. No acute surgical invention recommend at this time Trend H&H We will follow with serial abdominal exams Reverse coagulopathy-appropriate now Vitamin K and FFP as needed Okay to start clear liquids Cardiology consultation Nephrology consultation worsening renal insufficiency IV fluids Advance diet Bowel regimen resume anticoag lovenox transition to coumadin d/c planning patient wants to go home We will follow with recommendations Thank you for let me participate in patient's care (2) Intra abdominal hemorrhage Assessment & Plan: There is a severe cardiomegaly with biatrial chamber enlargement. 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 Pacemaker is present. There is a hiatal hernia. The lung bases are clear. The IVC and hepatic veins are markedly enlarged. There are generalized reticular densities throughout the mesentery and omentum nonspecific. There is some free fluid within the pelvis especially in the area of the cul-de-sac posterior to the uterus. The fluid has a areas of increased density, suspicious for blood. The nature of the hemoperitoneum is not known and the clinical correlation is needed. There are no signs of trauma or any history of such. There is a hypodensity within the left hemipelvis measuring about 1.7 cm which could be an ovarian cyst. Consider rupture of an ovarian cyst or mass is certainly possible. There may be 1 cm focus of fat (image #[id number]) in association with the left ovary and adjacent to the cystic focus suggesting the possibility of an ovarian dermoid. There is a calcified fibroid within the uterus measuring 1.6 cm. IMPRESSION: Pelvic hemoperitoneum with moderate organized clot in the cul-de-sac. Nature of this is not known but consider possibility of a ruptured ovarian cyst and/or mass. Question of an ovarian dermoid on the left side. Differential includes trauma, iatrogenic causes from recent surgery/procedures, coagulopathies, antiocoagulation Rx or other causes of hemoperitoneum. Calcified uterine fibroid. Severe cardiomyopathy with biatrial chamber enlargement. Distended IVC and hepatic veins probably on the basis of tricuspid regurgitation or right heart failure. Atherosclerotic vascular disease. Pacemaker. Hiatal hernia. Mesenteric nodularity and reticulation may be on the basis of ascites/ hemoperitoneum described earlier. Iain Soria Aug 18, 2019 19:28
--- NOTE | 2019-08-18 19:30 | NUR ---
NURSE NOTES: Received patient on bed awake and verbally responsive. breathing even andn u Addendum: 08/18/19 at 2219 by Esmer Madison RN NURSE NOTES: breathing even and unlabored. no sob. denies any pain or discomfort. bed locked and in lowest position. call light and light button within easy reach. will continue plan of care.
[2019-08-18 20:00] VITALS: BP 126/52
[2019-08-19] VITALS: BP 118/59
[2019-08-19 04:00] VITALS: BP 120/61
[2019-08-19] MEDS: NovoLOG Insulin Flexpen SUBQ SCH ×4 (06:30→21:12)
--- NOTE | 2019-08-19 07:20 | General Progress Note ---
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 Bowel regimen of Colace and MiraLAX Continue PPI Sent for fecal occult blood stool to rule out any GI bleed Outpatient GI procedure fu cardiology recs Subjective Allergies: Coded Allergies: No Known Allergies (Unverified , 09/17/16) Objective Last 24 Hour Vital Signs Date Time Temp Pulse Resp B/P (MAP) Pulse Ox O2 Delivery O2 Flow Rate FiO2 08/19/19 04:00 97.3 70 16 120/61 (80) 96 08/19/19 00:00 97.5 81 16 118/59 (78) 98 08/18/19 21:09 69 126/52 08/18/19 21:08 126/52 08/18/19 21:00 Room Air 08/18/19 20:00 98.0 69 16 126/52 (76) 96 08/18/19 17:06 125/59 08/18/19 16:00 98.8 82 20 125/59 (81) 96 08/18/19 12:00 98.1 76 20 120/58 (78) 96 08/18/19 09:00 Room Air 08/18/19 08:57 132/54 08/18/19 08:57 70 132/54 08/18/19 08:57 132/54 08/18/19 08:00 97.8 70 20 132/54 (80) 96 Intake and Output 08/18/19 08/19/19 19:00 07:00 Intake Total 720 ml 1240 ml Output Total 1850 ml Balance 720 ml -610 ml Intake Oral 720 ml 240 ml Other 1000 ml Output Urine Total 1850 ml # Voids 4 4 Height (Feet): 5 Height (Inches): 2.00 Weight (Pounds): 103 General Appearance: alert EENT: normal ENT inspection Neck: supple Cardiovascular: normal rate Respiratory/Chest: decreased breath sounds Abdomen: normal bowel sounds, non tender, soft Extremities: non-tender Charan Pimentel MD Aug 19, 2019 07:20
--- NOTE | 2019-08-19 07:25 | NUR ---
NURSE NOTES: Patient awake, alert x4, [place]er speaking; on room air, no sing of distress and shortness of breath; no sing of chest pain; Left For-Arm 24G flushes well; will check blood sugar as scheduled; patient's own cane within reach; side rails up x2, breaks engaged, bed at lowest position; call light within reach; will keep monitoring.
[2019-08-19 08:00] VITALS: BP 118/54
[2019-08-19 08:00] LABS: BASOPHILS % (AUTO) 1.1 % (0.0-2.0); HEMATOCRIT 30.9 % (37.0-47.0); HEMOGLOBIN 9.7 G/DL (12.0-16.0); LYMPHOCYTES % (AUTO) 14.4 % (20.0-45.0); MEAN CORPUSCULAR VOLUME 93 FL (80-99); MONOCYTES % (AUTO) 8.2 % (1.0-10.0); NEUTROPHILS % (AUTO) 73.3 % (45.0-75.0); PLATELET COUNT 124 K/UL (150-450); RED BLOOD COUNT 3.32 M/UL (4.20-5.40); RED CELL DISTRIBUTION WIDTH 18.9 % (11.6-14.8); WHITE BLOOD COUNT 4.6 K/UL (4.8-10.8)
[2019-08-19 08:01] LABS: INR 2.2 (0.9-1.1)
[2019-08-19 09:24] LABS: ANION GAP 10 mmol/L (5-15); BLOOD UREA NITROGEN 34 mg/dL (7-18); CALCIUM 8.8 MG/DL (8.5-10.1); CARBON DIOXIDE 22 MMOL/L (21-32); CHLORIDE 113 MMOL/L (98-107); CREATININE 1.3 MG/DL (0.55-1.30); POTASSIUM 4.4 MMOL/L (3.5-5.1); SODIUM 145 MMOL/L (136-145)
[2019-08-19] MEDS: Docusate 100mg cap ORAL SCH ×3 (09:42→17:10)
[2019-08-19] MEDS: Carvedilol 12.5mg tab ORAL SCH ×2 (09:42→21:00)
[2019-08-19] MEDS: Liothyronine 5mcg tab ORAL SCH (09:42)
[2019-08-19] MEDS: HydrALAZINE 10mg Tab ORAL SCH ×2 (09:43→21:00)
--- NOTE | 2019-08-19 10:01 | NUR ---
DISCHARGED PLANNED: [facility] BEEN [facility]ED [facility] T: [phone] ROOM# 25 B SKILLED
--- NOTE | 2019-08-19 11:05 | NUR ---
NURSE NOTES: I received a call from case management, ONUR Monroe said patient patient accepted at [facility] Room 25B and ONUR wants me to communicate MD to get discharge order; I communicated MD Albarran regarding the matter and waiting for order.
[2019-08-19 12:00] VITALS: BP 115/52
--- NOTE | 2019-08-19 12:33 | NUR ---
DISCHARGED PLANNED: PATIENT HAS BEEN ACCEPTED TO [facility] T: [phone] SKILLED
--- NOTE | 2019-08-19 13:22 | Pulmonology Progress Note ---
Assessment/Plan Problems: (1) Intra abdominal hemorrhage (2) Coagulopathy (3) Acute renal failure (4) Atrial fibrillation (5) HTN (hypertension) (6) Abdominal pain (7) Pacemaker (8) Aortic valve replaced (9) Status post mitral valve replacement (10) Cerebral vascular disease (11) Diabetes mellitus (12) Chronic anticoagulation Assessment/Plan doing better no new complains on coumadin daily, f/u INR daily, therapeutic now Blood sugar fairly controlled, symptomatic treatment v-paced, pacemaker will be interrogated check electrolytes symptomatic treatment dc planning Subjective ROS Limited/Unobtainable: No Constitutional: Reports: no symptoms HEENT: Repors: no symptoms Respiratory: Reports: no symptoms Allergies: Coded Allergies: No Known Allergies (Unverified , 09/17/16) Objective Last 24 Hour Vital Signs Date Time Temp Pulse Resp B/P (MAP) Pulse Ox O2 Delivery O2 Flow Rate FiO2 08/19/19 12:00 98.1 77 20 115/52 (73) 98 08/19/19 09:43 118/54 08/19/19 09:43 118/54 08/19/19 09:42 64 118/54 08/19/19 09:00 Room Air 08/19/19 08:00 97.3 64 18 118/54 (75) 95 08/19/19 04:00 97.3 70 16 120/61 (80) 96 08/19/19 00:00 97.5 81 16 118/59 (78) 98 08/18/19 21:09 69 126/52 08/18/19 21:08 126/52 08/18/19 21:00 Room Air 08/18/19 20:00 98.0 69 16 126/52 (76) 96 08/18/19 17:06 125/59 08/18/19 16:00 98.8 82 20 125/59 (81) 96 Intake and Output 08/18/19 08/19/19 19:00 07:00 Intake Total 720 ml 1240 ml Output Total 1850 ml Balance 720 ml -610 ml Intake Oral 720 ml 240 ml Other 1000 ml Output Urine Total 1850 ml # Voids 4 4 Objective General Appearance: WD/WN, no apparent distress Lines, tubes and drains: peripheral HEENT: normocephalic, atraumatic Neck: non-tender, normal alignment Respiratory/Chest: chest wall non-tender, lungs clear Breasts: no masses Cardiovascular/Chest: normal peripheral pulses Abdomen: non tender Extremities: normal range of motion Skin Exam: normal pigmentation Laboratory Tests 08/19/19 05:40: White Blood Count 4.6L, Red Blood Count 3.32L, Hemoglobin 9.7L, Hematocrit 30.9L , Mean Corpuscular Volume 93, Mean Corpuscular Hemoglobin 29.1, Mean Corpuscular Hemoglobin Concent 31.3L, Red Cell Distribution Width 18.9H, Platelet Count 124L, Mean Platelet Volume 8.1, Neutrophils (%) (Auto) 73.3, Lymphocytes (%) (Auto) 14.4L, Monocytes (%) (Auto) 8.2, Eosinophils (%) (Auto) 3.0, Basophils (%) (Auto) 1.1, Prothrombin Time 22.1H, Prothromb Time International Ratio 2.2H, Sodium Level 145, Potassium Level 4.4, Chloride Level 113H, Carbon Dioxide Level 22, Anion Gap 10, Blood Urea Nitrogen 34H, Creatinine 1.3, Estimat Glomerular Filtration Rate , Glucose Level 114H, Calcium Level 8.8 Current Medications Medications (Trade) Dose Ordered Sig/Grisel Route PRN Reason Start Time Stop Time Status Last Admin Dose Admin Acetaminophen (Tylenol) 650 mg Q4H PRN ORAL fever 08/08/19 17:30 09/07/19 17:29 Allopurinol (Allopurinol) 150 mg DAILY ORAL 08/12/19 09:00 09/11/19 08:59 08/19/19 09:43 Carvedilol (Coreg) 12.5 mg EVERY 12 HOURS ORAL 08/10/19 21:00 09/09/19 20:59 08/19/19 09:42 Dextrose (Dextrose 50%) 25 ml Q30M PRN IV Hypoglycemia 08/08/19 17:30 09/07/19 17:29 Dextrose (Dextrose 50%) 50 ml Q30M PRN IV Hypoglycemia 08/08/19 17:30 09/07/19 17:29 Docusate Sodium (Colace) 100 mg TID ORAL 08/10/19 13:00 09/08/19 17:59 08/19/19 12:10 Folic Acid (Folate) 2 mg DAILY ORAL 08/10/19 10:15 09/09/19 10:14 08/19/19 09:43 Hydralazine HCl (Apresoline) 10 mg Q12HR ORAL 08/11/19 21:00 09/09/19 17:59 08/19/19 09:43 Insulin Aspart (NovoLOG) BEFORE MEALS AND HS SUBQ 08/08/19 21:00 09/07/19 20:59 08/19/19 12:11 Isosorbide Dinitrate (Isordil) 10 mg BID ORAL 08/10/19 18:00 09/09/19 17:59 08/19/19 09:43 Liothyronine Sodium (Cytomel) 5 mcg DAILY ORAL 08/11/19 09:00 09/10/19 08:59 08/19/19 09:42 Nitroglycerin (Ntg) 0.4 mg Q5M X 3 DOSES PRN SL Prn Chest Pain 08/08/19 17:30 09/07/19 17:29 Ondansetron HCl (Zofran) 4 mg Q6H PRN IVP Nausea & Vomiting 08/08/19 17:30 09/07/19 17:29 Pantoprazole (Protonix) 40 mg BID ORAL 08/09/19 18:00 09/08/19 17:59 08/19/19 09:43 Polyethylene Glycol (Miralax) 17 gm HSPRN PRN ORAL Constipation 08/08/19 21:00 09/07/19 20:59 Temazepam (Restoril) 15 mg HSPRN PRN ORAL Insomnia 08/14/19 16:45 08/21/19 16:44 Warfarin Sodium (Coumadin per pharmacy) 1 ea DAILY PRN MISC Per rx protocol 08/13/19 12:00 09/12/19 11:59 Warfarin Sodium (Coumadin) 1 mg ONCE ORAL 08/19/19 17:00 08/19/19 18:00 Remedios Albarran MD Aug 19, 2019 13:22
[2019-08-19] MEDS ORDERED: COUMADIN1 MG ORAL (13:24)
--- NOTE | 2019-08-19 13:34 | Nephrology Progress Note ---
Assessment/Plan Problem List: (1) Acute renal failure Assessment: resolved (2) Diabetic nephropathy (3) Diabetes mellitus (4) HTN (hypertension) (5) Pacemaker Assessment Renal failure ? Acute on chronic Pelvic hemoperitoneum. Epigastric pain. Nausea. Hypertension. Diabetes type 2. Atrial fibrillation. Hypercholesterolemia. Cerebrovascular disease. 1990 Plan folic acid- cytomel- Slow Hydrate- Anemia avila- transfused monitor renal parameters 2D echo Pending Kidney [facility] medical Renal disease med surg- DC planning Subjective ROS Limited/Unobtainable: No Constitutional: Reports: malaise Objective Objective Last 24 Hour Vital Signs Date Time Temp Pulse Resp B/P (MAP) Pulse Ox O2 Delivery O2 Flow Rate FiO2 08/19/19 12:00 98.1 77 20 115/52 (73) 98 08/19/19 09:43 118/54 08/19/19 09:43 118/54 08/19/19 09:42 64 118/54 08/19/19 09:00 Room Air 08/19/19 08:00 97.3 64 18 118/54 (75) 95 08/19/19 04:00 97.3 70 16 120/61 (80) 96 08/19/19 00:00 97.5 81 16 118/59 (78) 98 08/18/19 21:09 69 126/52 08/18/19 21:08 126/52 08/18/19 21:00 Room Air 08/18/19 20:00 98.0 69 16 126/52 (76) 96 08/18/19 17:06 125/59 08/18/19 16:00 98.8 82 20 125/59 (81) 96 Intake and Output 08/18/19 08/19/19 19:00 07:00 Intake Total 720 ml 1240 ml Output Total 1850 ml Balance 720 ml -610 ml Intake Oral 720 ml 240 ml Other 1000 ml Output Urine Total 1850 ml # Voids 4 4 Laboratory Tests 08/19/19 05:40: White Blood Count 4.6L, Red Blood Count 3.32L, Hemoglobin 9.7L, Hematocrit 30.9L , Mean Corpuscular Volume 93, Mean Corpuscular Hemoglobin 29.1, Mean Corpuscular Hemoglobin Concent 31.3L, Red Cell Distribution Width 18.9H, Platelet Count 124L, Mean Platelet Volume 8.1, Neutrophils (%) (Auto) 73.3, Lymphocytes (%) (Auto) 14.4L, Monocytes (%) (Auto) 8.2, Eosinophils (%) (Auto) 3.0, Basophils (%) (Auto) 1.1, Prothrombin Time 22.1H, Prothromb Time International Ratio 2.2H, Sodium Level 145, Potassium Level 4.4, Chloride Level 113H, Carbon Dioxide Level 22, Anion Gap 10, Blood Urea Nitrogen 34H, Creatinine 1.3, Estimat Glomerular Filtration Rate , Glucose Level 114H, Calcium Level 8.8 Height (Feet): 5 Height (Inches): 2.00 Weight (Pounds): 103 General Appearance: no apparent distress Objective no change Kirby Rivera MD Aug 19, 2019 13:34
--- NOTE | 2019-08-19 14:20 | NUR ---
P.T Note: P.T evaluation completed and tx initiated. Please refer to P.T evaluation for current functional status. Pt is alert, O x 4 , pleasant and cooperative. Pt denied c/o pain but reports generalized weakness. Pt currently require CGA X 1 for Bed mobility , transfers and gait/ambulation activities using the straight cane. Skilled P.T service is warranted to improve her strength, balance and endurance to increase her mobility independence and safety. Pt will benefit from SNF for short term rehab or home P.T. Thank you for this referral.
--- NOTE | 2019-08-19 14:42 | Cardiac Electrophysiology PN ---
Assessment/Plan Assessment/Plan 1. Paroxysmal atrial fibrillation. AV paced on digoxin 0.125 daily and metoprolol 50 b.i.d and Coumadin per Rx 2. Status post Biotronik DDD pacer by me in 2017 with Nl fx 3. Hypertension. Stable on Coreg, Hydralazine and isordil 4. 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 On Dig, Coreg, Hydralazine and isordil May need pacer upgrade to ICD if EF remains less than 35% 5. Diabetes. 6. CVA in 1990. 7. Status post aortic valve replacement in 1985 and then again in 1995. 8. Abdominal pain due to bleeding peritoneum with moderate organized clot in the cul-de-sac, FU by Dr. Estella GAITAN RN Subjective Subjective Alert NAD. No events. DC planning in progress. Objective Last 24 Hour Vital Signs Date Time Temp Pulse Resp B/P (MAP) Pulse Ox O2 Delivery O2 Flow Rate FiO2 08/19/19 12:00 98.1 77 20 115/52 (73) 98 08/19/19 09:43 118/54 08/19/19 09:43 118/54 08/19/19 09:42 64 118/54 08/19/19 09:00 Room Air 08/19/19 08:00 97.3 64 18 118/54 (75) 95 08/19/19 04:00 97.3 70 16 120/61 (80) 96 08/19/19 00:00 97.5 81 16 118/59 (78) 98 08/18/19 21:09 69 126/52 08/18/19 21:08 126/52 08/18/19 21:00 Room Air 08/18/19 20:00 98.0 69 16 126/52 (76) 96 08/18/19 17:06 125/59 08/18/19 16:00 98.8 82 20 125/59 (81) 96 Intake and Output 08/18/19 08/19/19 19:00 07:00 Intake Total 720 ml 1240 ml Output Total 1850 ml Balance 720 ml -610 ml Intake Oral 720 ml 240 ml Other 1000 ml Output Urine Total 1850 ml # Voids 4 4 Laboratory Tests Test 08/19/19 05:40 White Blood Count 4.6 K/UL (4.8-10.8) L Red Blood Count 3.32 M/UL (4.20-5.40) L Hemoglobin 9.7 G/DL (12.0-16.0) L Hematocrit 30.9 % (37.0-47.0) L Mean Corpuscular Volume 93 FL (80-99) Mean Corpuscular Hemoglobin 29.1 PG (27.0-31.0) Mean Corpuscular Hemoglobin Concent 31.3 G/DL (32.0-36.0) L Red Cell Distribution Width 18.9 % (11.6-14.8) H Platelet Count 124 K/UL (150-450) L Mean Platelet Volume 8.1 FL (6.5-10.1) Neutrophils (%) (Auto) 73.3 % (45.0-75.0) Lymphocytes (%) (Auto) 14.4 % (20.0-45.0) L Monocytes (%) (Auto) 8.2 % (1.0-10.0) Eosinophils (%) (Auto) 3.0 % (0.0-3.0) Basophils (%) (Auto) 1.1 % (0.0-2.0) Prothrombin Time 22.1 SEC (9.30-11.50) H Prothromb Time International Ratio 2.2 (0.9-1.1) H Sodium Level 145 MMOL/L (136-145) Potassium Level 4.4 MMOL/L (3.5-5.1) Chloride Level 113 MMOL/L (98-107) H Carbon Dioxide Level 22 MMOL/L (21-32) Anion Gap 10 mmol/L (5-15) Blood Urea Nitrogen 34 mg/dL (7-18) H Creatinine 1.3 MG/DL (0.55-1.30) Estimat Glomerular Filtration Rate mL/min (>60) Glucose Level 114 MG/DL (74-106) H Calcium Level 8.8 MG/DL (8.5-10.1) Objective HEAD AND NECK: No JVD. LUNGS: Clear. CARDIOVASCULAR: Metallic S2 with soft systolic murmur. Sternotomy intact. Pacemaker in the left subclavian. ABDOMEN: Soft. EXTREMITIES: no pitting edema. Osmany Carmona MD Aug 19, 2019 14:42
--- NOTE | 2019-08-19 14:45 | Surgery Progress Note ---
Surgery Progress Note Subjective Symptoms: improved, pain absent, tolerating diet, voiding well, passing flatus , BM Objective Last 24 Hour Vital Signs Date Time Temp Pulse Resp B/P (MAP) Pulse Ox O2 Delivery O2 Flow Rate FiO2 08/19/19 12:00 98.1 77 20 115/52 (73) 98 08/19/19 09:43 118/54 08/19/19 09:43 118/54 08/19/19 09:42 64 118/54 08/19/19 09:00 Room Air 08/19/19 08:00 97.3 64 18 118/54 (75) 95 08/19/19 04:00 97.3 70 16 120/61 (80) 96 08/19/19 00:00 97.5 81 16 118/59 (78) 98 08/18/19 21:09 69 126/52 08/18/19 21:08 126/52 08/18/19 21:00 Room Air 08/18/19 20:00 98.0 69 16 126/52 (76) 96 08/18/19 17:06 125/59 08/18/19 16:00 98.8 82 20 125/59 (81) 96 I&O Intake and Output 08/18/19 08/19/19 19:00 07:00 Intake Total 720 ml 1240 ml Output Total 1850 ml Balance 720 ml -610 ml Intake Oral 720 ml 240 ml Other 1000 ml Output Urine Total 1850 ml # Voids 4 4 Cardiovascular: RSR Respiratory: clear Abdomen: soft, flat, non-tender, present bowel sounds Extremities: no edema, no tenderness, no cyanosis Laboratory Tests Test 08/19/19 05:40 White Blood Count 4.6 K/UL (4.8-10.8) L Red Blood Count 3.32 M/UL (4.20-5.40) L Hemoglobin 9.7 G/DL (12.0-16.0) L Hematocrit 30.9 % (37.0-47.0) L Mean Corpuscular Volume 93 FL (80-99) Mean Corpuscular Hemoglobin 29.1 PG (27.0-31.0) Mean Corpuscular Hemoglobin Concent 31.3 G/DL (32.0-36.0) L Red Cell Distribution Width 18.9 % (11.6-14.8) H Platelet Count 124 K/UL (150-450) L Mean Platelet Volume 8.1 FL (6.5-10.1) Neutrophils (%) (Auto) 73.3 % (45.0-75.0) Lymphocytes (%) (Auto) 14.4 % (20.0-45.0) L Monocytes (%) (Auto) 8.2 % (1.0-10.0) Eosinophils (%) (Auto) 3.0 % (0.0-3.0) Basophils (%) (Auto) 1.1 % (0.0-2.0) Prothrombin Time 22.1 SEC (9.30-11.50) H Prothromb Time International Ratio 2.2 (0.9-1.1) H Sodium Level 145 MMOL/L (136-145) Potassium Level 4.4 MMOL/L (3.5-5.1) Chloride Level 113 MMOL/L (98-107) H Carbon Dioxide Level 22 MMOL/L (21-32) Anion Gap 10 mmol/L (5-15) Blood Urea Nitrogen 34 mg/dL (7-18) H Creatinine 1.3 MG/DL (0.55-1.30) Estimat Glomerular Filtration Rate mL/min (>60) Glucose Level 114 MG/DL (74-106) H Calcium Level 8.8 MG/DL (8.5-10.1) Plan Problems: (1) Abdominal pain Assessment & Plan: 73-year-old female with abdominal pain likely due to intra- abdominal hemorrhage from coagulopathy. No trauma. H&H stable. Exam with mild tenderness but no peritonitis. No acute surgical invention recommend at this time Trend H&H We will follow with serial abdominal exams Reverse coagulopathy-appropriate now Vitamin K and FFP as needed Okay to start clear liquids Cardiology consultation Nephrology consultation worsening renal insufficiency IV fluids Advance diet Bowel regimen resume anticoag lovenox transition to coumadin d/c planning patient wants to go home We will follow with recommendations Thank you for let me participate in patient's care (2) Intra abdominal hemorrhage Assessment & Plan: There is a severe cardiomegaly with biatrial chamber enlargement. 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 Pacemaker is present. There is a hiatal hernia. The lung bases are clear. The IVC and hepatic veins are markedly enlarged. There are generalized reticular densities throughout the mesentery and omentum nonspecific. There is some free fluid within the pelvis especially in the area of the cul-de-sac posterior to the uterus. The fluid has a areas of increased density, suspicious for blood. The nature of the hemoperitoneum is not known and the clinical correlation is needed. There are no signs of trauma or any history of such. There is a hypodensity within the left hemipelvis measuring about 1.7 cm which could be an ovarian cyst. Consider rupture of an ovarian cyst or mass is certainly possible. There may be 1 cm focus of fat (image #[id number] [id number]) in association with the left ovary and adjacent to the cystic focus suggesting the possibility of an ovarian dermoid. There is a calcified fibroid within the uterus measuring 1.6 cm. IMPRESSION: Pelvic hemoperitoneum with moderate organized clot in the cul-de-sac. Nature of this is not known but consider possibility of a ruptured ovarian cyst and/or mass. Question of an ovarian dermoid on the left side. Differential includes trauma, iatrogenic causes from recent surgery/procedures, coagulopathies, antiocoagulation Rx or other causes of hemoperitoneum. Calcified uterine fibroid. Severe cardiomyopathy with biatrial chamber enlargement. Distended IVC and hepatic veins probably on the basis of tricuspid regurgitation or right heart failure. Atherosclerotic vascular disease. Pacemaker. Hiatal hernia. Mesenteric nodularity and reticulation may be on the basis of ascites/ hemoperitoneum described earlier. Iain Soria Aug 19, 2019 14:45
--- NOTE | 2019-08-19 15:11 | NUR ---
DISCHARGED PLANNED: DISCUSSED DISCHARGE WITH FAMILY (AMINA); FAMILY OK WITH SNF PLACEMENT PATIENT HAS BEEN ACCEPTED TO [facility] T: [phone] ROOM#35[address] SKILLED PAGED DR. FARIAS AND DR. HOFF TO CLARIFICATION SNF VS HOME
--- NOTE | 2019-08-19 15:36 | NUR ---
DISCHARGED PLANNED: PATIENT HAS BEEN ACCEPTED TO [facility] T: [phone] NURSE TO NURSE REPORT ROOM# 25B SKILLED [facility] PICKUP @530PM FAMILY MADE AWARE (AMINA)
[2019-08-19 16:00] VITALS: BP 120/54
[2019-08-19] MEDS ORDERED: Warfarin Sodium 1mg ORAL SCH (17:00)
--- NOTE | 2019-08-19 17:09 | Internal Med Progress Note ---
Subjective Physician Name Kobi Real Attending Physician Kobi Real MD Current Medications Medications (Trade) Dose Ordered Sig/Grisel Route PRN Reason Start Time Stop Time Status Last Admin Dose Admin Acetaminophen (Tylenol) 650 mg Q4H PRN ORAL fever 08/08/19 17:30 09/07/19 17:29 Allopurinol (Allopurinol) 150 mg DAILY ORAL 08/12/19 09:00 09/11/19 08:59 08/19/19 09:43 Carvedilol (Coreg) 12.5 mg EVERY 12 HOURS ORAL 08/10/19 21:00 09/09/19 20:59 08/19/19 09:42 Dextrose (Dextrose 50%) 25 ml Q30M PRN IV Hypoglycemia 08/08/19 17:30 09/07/19 17:29 Dextrose (Dextrose 50%) 50 ml Q30M PRN IV Hypoglycemia 08/08/19 17:30 09/07/19 17:29 Docusate Sodium (Colace) 100 mg TID ORAL 08/10/19 13:00 09/08/19 17:59 08/19/19 12:10 Folic Acid (Folate) 2 mg DAILY ORAL 08/10/19 10:15 09/09/19 10:14 08/19/19 09:43 Hydralazine HCl (Apresoline) 10 mg Q12HR ORAL 08/11/19 21:00 09/09/19 17:59 08/19/19 09:43 Insulin Aspart (NovoLOG) BEFORE MEALS AND HS SUBQ 08/08/19 21:00 09/07/19 20:59 08/19/19 12:11 Isosorbide Dinitrate (Isordil) 10 mg BID ORAL 08/10/19 18:00 09/09/19 17:59 08/19/19 09:43 Liothyronine Sodium (Cytomel) 5 mcg DAILY ORAL 08/11/19 09:00 09/10/19 08:59 08/19/19 09:42 Nitroglycerin (Ntg) 0.4 mg Q5M X 3 DOSES PRN SL Prn Chest Pain 08/08/19 17:30 09/07/19 17:29 Ondansetron HCl (Zofran) 4 mg Q6H PRN IVP Nausea & Vomiting 08/08/19 17:30 09/07/19 17:29 Pantoprazole (Protonix) 40 mg BID ORAL 08/09/19 18:00 09/08/19 17:59 08/19/19 09:43 Polyethylene Glycol (Miralax) 17 gm HSPRN PRN ORAL Constipation 08/08/19 21:00 09/07/19 20:59 Temazepam (Restoril) 15 mg HSPRN PRN ORAL Insomnia 08/14/19 16:45 08/21/19 16:44 Warfarin Sodium (Coumadin per pharmacy) 1 ea DAILY PRN MISC Per rx protocol 08/13/19 12:00 09/12/19 11:59 Warfarin Sodium (Coumadin) 1 mg ONCE ORAL 08/19/19 17:00 08/19/19 18:00 Allergies: Coded Allergies: No Known Allergies (Unverified , 09/17/16) Subjective awake, alert, responsive, No CP or SOB, sitting up on chair. Objective Last Vital Signs Date Time Temp Pulse Resp B/P (MAP) Pulse Ox O2 Delivery O2 Flow Rate FiO2 08/19/19 16:00 98.2 74 20 120/54 (76) 97 08/19/19 09:00 Room Air Laboratory Tests Test 08/19/19 05:40 White Blood Count 4.6 K/UL (4.8-10.8) L Red Blood Count 3.32 M/UL (4.20-5.40) L Hemoglobin 9.7 G/DL (12.0-16.0) L Hematocrit 30.9 % (37.0-47.0) L Mean Corpuscular Volume 93 FL (80-99) Mean Corpuscular Hemoglobin 29.1 PG (27.0-31.0) Mean Corpuscular Hemoglobin Concent 31.3 G/DL (32.0-36.0) L Red Cell Distribution Width 18.9 % (11.6-14.8) H Platelet Count 124 K/UL (150-450) L Mean Platelet Volume 8.1 FL (6.5-10.1) Neutrophils (%) (Auto) 73.3 % (45.0-75.0) Lymphocytes (%) (Auto) 14.4 % (20.0-45.0) L Monocytes (%) (Auto) 8.2 % (1.0-10.0) Eosinophils (%) (Auto) 3.0 % (0.0-3.0) Basophils (%) (Auto) 1.1 % (0.0-2.0) Prothrombin Time 22.1 SEC (9.30-11.50) H Prothromb Time International Ratio 2.2 (0.9-1.1) H Sodium Level 145 MMOL/L (136-145) Potassium Level 4.4 MMOL/L (3.5-5.1) Chloride Level 113 MMOL/L (98-107) H Carbon Dioxide Level 22 MMOL/L (21-32) Anion Gap 10 mmol/L (5-15) Blood Urea Nitrogen 34 mg/dL (7-18) H Creatinine 1.3 MG/DL (0.55-1.30) Estimat Glomerular Filtration Rate mL/min (>60) Glucose Level 114 MG/DL (74-106) H Calcium Level 8.8 MG/DL (8.5-10.1) Intake and Output 08/18/19 08/19/19 18:59 06:59 Intake Total 720 ml 1240 ml Output Total 1850 ml Balance 720 ml -610 ml Intake Oral 720 ml 240 ml Other 1000 ml Output Urine Total 1850 ml # Voids 4 4 Objective General: No acute distress, awake and alert HEENT: NCAT, sclera anicteric, PERRL, EOMI. Neck: Supple, no significant jugular venous distention, Lungs: Good inspiratory effort, clear to auscultation bilaterally, no Wheeze or Rales. Heart: Irregular rate and rhythm, normal S1/S2, + CEM, Pacemaker @ [facility]. Abdomen: soft, nontender, nondistended. Normoactive bowel sounds. / Rectal: Refused and deferred. Extremities: No Cyanosis , clubbing or edema. Neuro: A&O x 3, Able to move all extremities Skin: warm, no rashes or lesions Psych: Normal mood and affect Assessment/Plan Assessment/Plan (1) Type II diabetes mellitus Assessment & Plan: continue novolog sliding scale. (2) Hemoperitoneum, nontraumatic Assessment & Plan: Due to coagulopathy due to coumadin. Hold coumadin. Follow hemoglobin. Non surgical-see surgery note=Dr Soria. (3) Epigastric pain (4) Nausea Assessment & Plan: tolerating clear liquid diet-see GI note=Dr Pimentel (5) HTN (hypertension) (6) Atrial fibrillation Assessment & Plan: Hold digoxin due to toxicity per cardiology (7) Coagulopathy Assessment & Plan: Hold coumadin secondary to hemoperitoneum. (8) Cerebral vascular disease (9) Pacemaker Assessment & Plan: EP Cardiology=Dr Carmona. Await pacemaker interrogation (10) Status post mitral valve replacement (11) Renal failure Assessment & Plan: Followed by nephrology =Dr Rivera (12) CHF (congestive heart failure) Assessment & Plan: BNP>2000. Cardiology consult=Dr Carmona On Coumadin OOB to Chair DC to SNF today Kobi Real MD Aug 19, 2019 17:09
--- NOTE | 2019-08-19 19:34 | NUR ---
HAND-OFF: Report given to BELINDA Lazo. Printed package, patient's own medications and MD Albarran's prescription for medication endorsed to BELINDA Lazo.
--- NOTE | 2019-08-19 19:50 | NUR ---
NURSE NOTES: Pt received in bed, speaking [place], pt ready to be discharged to [facility], I called the facility and gave report to Johana, will remove ID band and IV, no c/o pain or signs of distress, will have pt signs belongings list. Packet prepared with pt medication.
[2019-08-19 21:00] VITALS: BP 109/52
--- NOTE | 2019-08-19 21:45 | NUR ---
NURSE NOTES: Pt picked up by ambulance to be taken to [facility], report was already given to [facility] BELINDA Vaughn, iD band removed and IV removed, belongings list signed, pt left with cane and hat.
--- NOTE | 2019-08-21 16:29 | Discharge Summary ---
Discharge Summary Discharge Summary _ DATE OF ADMISSION: 08/08/2019 DATE OF DISCHARGE: 08/19/2019 DISCHARGED BY: Dr. Kobi Real CONSULTANTS: Dr. Iain Pimentel [facility]: Patient is a 73-year-old female who presented to ED for complaints of mid abdominal pain, cramping and sharp in nature.. There was also increased nausea. She denied vomiting or diarrhea. Denied chest pain or shortness of breath. She denied any fall or trauma. She had previous umbilical hernia surgery. She has history of hypertension, diabetes, CVA with right-sided hemiparesis history of aortic valve replacement, on chronic anticoagulation.. Upon evaluation in ED, blood pressure was 99/56, heart rate 85. Abdominal exam showed tenderness on palpation of mid periumbilical region, no obvious distention, decreased bowel sounds. Blood work did not show any leukocytosis. Hemoglobin 8.9, hematocrit 27. Electrolytes were normal. BUN 44, creatinine 1.6. LFTs normal. Bilirubin normal. Troponin negative. Lipase was elevated to 496. Urinalysis essentially negative. PT was 13, INR elevated to 3.0. She was given vitamin K. Chest x-ray did not show any acute disease. Abdominal and pelvic CT showed pelvic hemoperitoneum with moderate organized clot in the cul-de-sac; likely spontaneous given coagulopathy. Calcified uterine fibroid. Severe cardiomyopathy with biatrial chamber enlargement. Distended IVC and hepatic veins. Atherosclerotic vascular disease. Pacemaker. Hiatal hernia. She was then admitted for further management and care. Surgery was called to evaluate and assist with care. Patient was placed on n.p.o. He was given IV fluids. Reverse coagulopathy. Coumadin was placed on hold. Will need serial abdominal exams. H&H was trended. There was no acute surgical intervention recommended. She was given bowel regimen. She was continued with home medications. She was placed on insulin sliding scale. Pain resolved. She was started on clear liquid diet. She was continued on digoxin for atrial fibrillation. H&H dropped. She was given packed RBC and plasma transfusion. La[facility] was consulted. EKG showed atrial sensed and ventricular paced. Echocardiogram showed ejection fraction of 30 to 35% with severe MR and TR and aortic valve area of 0.6 with prosthetic aortic valve also mitral valve. Digoxin level was 2. Digoxin was placed on hold. Metoprolol was continued. INR was stable. She was started on Lovenox. Pacemaker interrogation was normal. She was eventually restarted back on digoxin. She was given hydralazine and Isordil. May need pacer upgrade to ICD if EF remains less than 35%. KUB did not show any acute findings. Renal ultrasound with no evidence of obstructive nephropathy. She was passing bowel movement and flatus. She was tolerating diet. She was transitioned back to Coumadin. INR was followed. She was given physical therapy. INR was stable. She was eventually discharged to SNF. FINAL DIAGNOSES: Nontraumatic hemoperitoneum Coagulopathy secondary to chronic Coumadin use Acute renal failure Paroxysmal atrial fibrillation status post [place] pacemaker in 2016 Severe cardiomyopathy Status post aortic valve replacement in 1985 and 1995 Type 2 diabetes mellitus with diabetic nephropathy Hypertension Atrial fibrillation Anemia, required blood transfusion Iron deficiency Old CVA DISPOSITION: Patient was discharged to a SNF. DISCHARGE MEDICATIONS: Refer to Discharge Medication List. Continue Coumadin. Monitor INR. I have been assigned to complete a discharge summary on this account, I was not involved with the patient's management.--GERTRUDIS [place] Jacqueline Robles NP Aug 21, 2019 16:29
== END 2019-08-19 21:45 | DRG 394 ==
LOC: EMR 15:00 → 2E 15:32 → EDBEDREQSVC 17:14 → EDBEDREQ 17:14 → 2E 18:47 → 4E 08-12 20:51
PROC: 30233K1 Transfusion of Nonautologous Frozen Plasma into Peripheral Vein, Percutaneous Approach (ICD-10-PCS; principal; 2019-08-08)
PROC: 30233N1 Transfusion of Nonautologous Red Blood Cells into Peripheral Vein, Percutaneous Approach (ICD-10-PCS; 2019-08-09)
DX: K66.1 Hemoperitoneum (principal); I42.9 Cardiomyopathy, unspecified; N17.9 Acute kidney failure, unspecified; D68.32 Hemorrhagic disorder due to extrinsic circulating anticoagulants; I13.0 Hypertensive heart and chronic kidney disease with heart failure and stage 1 through stage 4 chronic kidney disease, or unspecified chronic kidney disease; T45.515A Adverse effect of anticoagulants, initial encounter; E78.00 Pure hypercholesterolemia, unspecified; Z86.73 Personal history of transient ischemic attack (TIA), and cerebral infarction without residual deficits; Z79.01 Long term (current) use of anticoagulants; Z95.2 Presence of prosthetic heart valve; Z79.84 Long term (current) use of oral hypoglycemic drugs; I70.90 Unspecified atherosclerosis; I34.0 Nonrheumatic mitral (valve) insufficiency; I36.1 Nonrheumatic tricuspid (valve) insufficiency; I48.0 Paroxysmal atrial fibrillation; E11.21 Type 2 diabetes mellitus with diabetic nephropathy; E61.1 Iron deficiency; M81.0 Age-related osteoporosis without current pathological fracture; K44.9 Diaphragmatic hernia without obstruction or gangrene; D25.9 Leiomyoma of uterus, unspecified; E11.22 Type 2 diabetes mellitus with diabetic chronic kidney disease; N18.9 Chronic kidney disease, unspecified; Z95.0 Presence of cardiac pacemaker; R10.13 Epigastric pain; R11.0 Nausea; I50.9 Heart failure, unspecified
CPT/HCPCS: 36415; 71045; 74018; 74176; 76700; 76770; 80048; 80053; 80061; 80162; 81001; 81003; 82150; 82248; 82270; 82378; 82550; 82607; 82728; 82746; 82962; 82977; 83036; 83540; 83550; 83615; 83690; 83735; 83880; 84100; 84300; 84439; 84443; 84481; 84484; 84550; 85007; 85025; 85044; 85060; 85610; 85651; 85730; 86140; 86850; 86900; 86901; 86920; 86927; 89050; 93005; 93306; 96372; 96374; 96375; 99291; J1815; J2405; J7030